=== PATIENT | male | born 1980 | race Two or more races ===

== ENCOUNTER → 2022-05-18 09:59 | Outpatient (BNVA) | payer OTHER, SELFPAY | PROVIDERS: PCP Family Medicine; Visit Provider Internal Medicine Endocrinology, Diabetes & Metabolism | DX: E11.9 Type 2 diabetes mellitus without complications (principal); Z79.4 Long term (current) use of insulin; Z79.84 Long term (current) use of oral hypoglycemic drugs | CPT/HCPCS: 82947; 83036; 99202 ==

== ENCOUNTER 2022-05-18 11:36 | Outpatient (REF) | payer OTHER, SELFPAY ==
[2022-05-18 14:14] LABS: Cholesterol 152 mg/dL; HDL Cholesterol 34 mg/dL; LDL Cholesterol Calculated 70 mg/dl; Triglycerides 243 mg/dL
[2022-05-18 14:21] LABS: Creatinine Urine 72.74 mg/dL
[2022-05-18 14:27] LABS: Microalbum/Creatinine Ratio Ur 1026.9 ug/mg cr
== END 2022-05-18 11:37 | disposition home or self-care (01) ==
LOC: HO.10HDL 11:36
PROVIDERS: Visit Provider Internal Medicine Endocrinology, Diabetes & Metabolism
DX: E11.9 Type 2 diabetes mellitus without complications (principal)
CPT/HCPCS: 36415; 80061; 82043

== ENCOUNTER → 2022-06-28 14:00 | Outpatient (BNVA) | payer OTHER, SELFPAY | PROVIDERS: PCP Family Medicine; Visit Provider Dietitian, Registered | DX: E11.9 Type 2 diabetes mellitus without complications (principal) | CPT/HCPCS: 97802 ==

== ENCOUNTER → 2022-07-27 14:36 | Outpatient (BNVA) | payer OTHER, SELFPAY | PROVIDERS: PCP Family Medicine; Visit Provider Internal Medicine Endocrinology, Diabetes & Metabolism | DX: E11.9 Type 2 diabetes mellitus without complications (principal); Z79.84 Long term (current) use of oral hypoglycemic drugs | CPT/HCPCS: 82947; 99212 ==

== ENCOUNTER → 2022-08-29 14:57 | Outpatient (BNVA) | payer OTHER, SELFPAY | PROVIDERS: PCP Family Medicine; Visit Provider Registered Nurse Diabetes Educator | DX: E11.9 Type 2 diabetes mellitus without complications (principal) | CPT/HCPCS: 99211 ==

== ENCOUNTER 2022-11-09 08:52 | Outpatient (REF) | payer OTHER, SELFPAY ==
[2022-11-09 14:48] LABS: MANUAL DIFF FLAG NO
[2022-11-09 14:57] LABS: Basophils Absolute Auto 0.1 X10*3/uL (0.0-0.2); Basophils Percent Auto 0.5 % (0-2); Eosinophils Absolute Auto 0.2 X10*3/uL (0.0-0.4); Eosinophils Percent Auto 2.3 % (0-4); Hematocrit 43.5 % (42.0-52.0); Imm Gran Abs Auto 0.04 X10*3/uL (0.00-0.03); Imm Gran Pct Auto 0.4 % (0.0-0.4); Lymphocytes Absolute Auto 2.7 X10*3/uL (1.2-4.9); Lymphocytes Percent Auto 28.7 % (20-40); Mean Corpuscular HGB Conc 32.2 g/dl (31.0-36.0); Mean Corpuscular Hemoglobin 26.8 pg (27.0-33.0); Mean Corpuscular Volume 83.3 fL (80.0-98.0); Mean Platelet Volume 9.4 fL (9.4-12.4); Monocytes Absolute Auto 0.8 X10*3/uL (0.1-1.2); Monocytes Percent Auto 8.6 % (2-11); Neutrophils Absolute Auto 5.5 x10*3/uL (2.0-8.3); Neutrophils Percent Auto 59.5 % (45-73); Platelet Count 315 X10*3/uL (160-400); Red Blood Count 5.22 X10*6/uL (4.60-5.80); Red Cell Distribution Width 15.3 % (11.0-16.0); White Blood Count 9.3 X10*3/uL (4.8-10.8)
[2022-11-09 15:15] LABS: Alanine Aminotransferase 27 U/L (0-40); Albumin Level 3.9 g/dL (3.5-5.0); Alkaline Phosphatase 78 U/L (39-117); Anion Gap 13 (12-20); Aspartate Amino Transferase 30 U/L (5-37); Bilirubin Total 0.4 mg/dL (0.0-1.0); Blood Urea Nitrogen 26 mg/dL (9-16); Calcium 10.1 mg/dL (8.4-10.2); Carbon Dioxide 25 mmol/L (22-29); Chloride 106 mmol/L (96-108); Cholesterol 137 mg/dL (<200); Estimated Glomerular Filt Rate 58; Glucose Fasting 109 mg/dL (60-99); HDL Cholesterol 32 mg/dL (>40); LDL Cholesterol Calculated 77 mg/dL (<100); Potassium 4.5 mmol/L (3.3-5.1); Sodium 139 mmol/L (135-145); Total Protein 7.5 g/dL (6.5-8.0); Triglycerides 140 mg/dL (<150)
[2022-11-09 15:32] LABS: Insulin 28 uU/mL (2-29)
[2022-11-09 15:37] LABS: Erythrocyte Sedimentation Rate 34 MM/HR (0-15)
[2022-11-09 15:38] LABS: Creatinine Urine 97.12 mg/dL
[2022-11-09 16:16] LABS: Microalbum/Creatinine Ratio Ur 926.6 ug/mg cr (<30)
[2022-11-10 09:17] LABS: ~HepC Num1 0.08 S/CO (0.00-0.79); ~Hepatitis C Antibody Nonreactive (Nonreactive)
== END 2022-11-09 08:53 | disposition home or self-care (01) ==
LOC: HO.CHCLDS 08:52
PROVIDERS: Absent Provider Pediatrics; Visit Provider Family Medicine
DX: E11.65 Type 2 diabetes mellitus with hyperglycemia (principal); R42 Dizziness and giddiness
CPT/HCPCS: 36415; 80053; 80061; 82043; 82570; 83525; 85025; 85652; 86803

== ENCOUNTER 2022-11-30 08:30 | Outpatient (AMB) | payer OTHER, SELFPAY ==
--- NOTE | 2022-11-30 08:31 | A.OFFVIS_ITS ---
Intake Vital Signs 11/30/22 08:32 Weight 318 lb 5.56 oz BP 110/60 Blood Pressure Location Lt brachial Position Sitting Pulse 99 Pulse Source Pulse Oximeter Intake Visit Reasons: F/Up Type 2 DM/Confirmed Intake Note: Patient present today to follow up on Type 2 Diabetes Mellitus. 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 Accompanied by: Self / Same As Patient Allergies No Known Allergies Allergy (Verified 11/30/22 08:38) Medication List - Last Reconciled 11/30/22 by Ady Najera MD allopurinol 300 mg PO BEDTIME amlodipine 10 mg PO DAILY blood-glucose meter (SpareFootStyle [place] Lite kit) As directed blood-glucose sensor (SpareFootStyle Jeannette 3 Sensor device) As directed change every 14 days cholecalciferol (vitamin D3) 50 mcg PO DAILY cyanocobalamin (vitamin B-12) 3,000 mcg PO DAILY dapagliflozin propanediol (Farxiga) 10 mg PO QAM lancets (TRUEplus Lancets) As directed metformin ER 500 mg PO BID nebivolol (Bystolic) 10 mg PO DAILY thiamine HCl (vitamin B1) 500 mg PO DAILY tirzepatide (Mounjaro) 7.5 mg (0.5 mL) subcut QWEEK valsartan 320 mg PO DAILY HPI HPI Comments History of Present Illness Details 42 YO F who is seen in consultation for T2DM at the request of PCP. Initially diagnosed with T2DM in age 34 . Not seen endo before Was initially started on treatment with metformin . Current regimen metformin XR 2000 mg BID Mounjaro 7.5 mg Qwkly Farxiga 10 mg QD Jeannette download shows using the sensor 85% of the time. Average glucose 145 with G mi of 6.8% the and variability 14.7%. 94% range with 6% hyperglycemia no hypoglycemia Family history of T2DM in father , sister . Has eyes checked yearly, last eye exam 6 mos ago , denies retinopathy. Denies neuropathy not sees podiatry. Denies nephropathy, on PAYAL/ARB. Not Has HLD,Not on statin.]. Denies CAD. Not Had diabetes education. [facility] Medical History (Updated 05/18/22 @ 10:15 by Ady Najera MD) Type 2 diabetes mellitus Surgical History No pertinent past surgical history Family History Mother High blood pressure Father Diabetes Kidney problem High blood pressure Social History Alcohol intake: never Patient Tobacco Use Status: Never used Tobacco Physical Exam Vital Signs: Last Vital Signs Pulse 99 11/30/22 08:32 BP 110/60 11/30/22 08:32 Absence of Cushingoid features. Absence of acromegalic features. Neck exam reveals nl size thyroid about 15 gms. No thyroid nodules palpable. No carotid bruits present. Lungs CTA. Heart S1 S2, Reg R/R. No M/R/ G. Skin exam reveals absence of vitiligo or acanthosis nigricans. Abdominal exam reveals Soft NT/ND with NA BS. No organomegaly present. Neck Other: . Extrem Other: Visual exam of foot performed. No ulcerations or open lesions. No onchomycosis, no callouses.Pulses 2 + distally Sensation intact to monofilament exam. Vibratory sensation sensed is intact with 128 Hz tuning fork Results Reviewed Results Reviewed: 11/30/22 08:41 Glucose, Whole Blood Routine Laboratory Last Values Glucose (Clinic) 136 mg/dL (60-115) H 11/30/22 08:41 Assessment & Plan Assessment & Plan (1) Type 2 diabetes mellitus: Code(s): E11.9 - Type 2 diabetes mellitus without complications Plan: This is a 42-year-old male with a history of type 2 diabetes being treated metformin, Mounjaro and Farxiga with excellent improved glycemic control and no known microvascular or macrovascular complications The plan is to continue the current therapy. At this point, patient can follow up with his primary care provider and return back to endocrinology should his HbA1c deteriorate Coding Level of Care Code Est Pt Level 3 (35409) Diagnoses Type 2 diabetes mellitus E11.9
[2022-11-30 08:32] VITALS: BP 110/60; PULSE 99
[2022-11-30 08:45] LABS: Glucose, Whole Blood 136 mg/dL (60-115)
== END 2022-11-30 09:03 | disposition home or self-care (01) ==
PROVIDERS: PCP Family Medicine; Visit Provider Internal Medicine Endocrinology, Diabetes & Metabolism
DX: E11.9 Type 2 diabetes mellitus without complications (principal)
CPT/HCPCS: 99213

== ENCOUNTER → 2022-11-30 08:30 | Outpatient (BNVA) | payer OTHER, SELFPAY | PROVIDERS: Visit Provider Internal Medicine Endocrinology, Diabetes & Metabolism | DX: E11.9 Type 2 diabetes mellitus without complications (principal) | CPT/HCPCS: 82947; 99212 ==

== ENCOUNTER → 2022-12-03 08:52 | Outpatient (BNV) | payer OTHER, SELFPAY | PROVIDERS: PCP Family Medicine; Visit Provider Internal Medicine Endocrinology, Diabetes & Metabolism | DX: E11.9 Type 2 diabetes mellitus without complications (principal) | CPT/HCPCS: 83036 ==

== ENCOUNTER 2023-06-24 08:53 | Outpatient (REF) | payer OTHER, SELFPAY ==
[2023-06-28 19:34] LABS: Testosterone, Free 50.4 pg/mL (35.0-155.0); Testosterone, Total 321 ng/dL (250-1100)
== END 2023-06-24 08:54 | disposition home or self-care (01) ==
LOC: HO.CHCLDS 08:53
PROVIDERS: Visit Provider Family Medicine
DX: E29.1 Testicular hypofunction (principal)
CPT/HCPCS: 36415; 84402; 84403

== ENCOUNTER 2023-08-06 14:38 | Outpatient (AMB) | payer OTHER, SELFPAY ==
--- NOTE | 2023-08-06 15:37 | MHC.OFFVIS ---
Intake Visit Reasons: second opinion on vericocele and balanitis Intake Note: New patient is present for second opinion on veriocele and Balanitis Allergies No Known Allergies Allergy (Verified 08/06/23 15:37) Medication List - Last Reconciled 08/08/23 by Filemon Dennis MD allopurinol 300 mg PO BEDTIME amlodipine 10 mg PO DAILY blood-glucose meter (FreeStyle [place] Lite kit) As directed blood-glucose sensor (FreeStyle Jeannette 3 Sensor device) As directed change every 14 days cholecalciferol (vitamin D3) 50 mcg PO DAILY clomiphene citrate 50 mg PO DAILY 90 days cyanocobalamin (vitamin B-12) 3,000 mcg PO DAILY dapagliflozin propanediol (Farxiga) 10 mg PO QAM lancets (TRUEplus Lancets) As directed metformin ER 500 mg PO BID nebivolol (Bystolic) 10 mg PO DAILY thiamine HCl (vitamin B1) 500 mg PO DAILY tirzepatide (Mounjaro) 7.5 mg (0.5 mL) subcut QWEEK valsartan 320 mg PO DAILY HPI Comments Details: Edd is a pleasant male. He is a patient of . He has seen for the following urologic conditions - question of left hydrocele - borderline testosterone in setting of diabetes Reassurance provided based on exam Six-month follow-up scrotal and ultrasound repeat labs Left hydrocele Per patient ultrasound performed Question varicocele on left side Has palpable varicocele with reduced testicular size Borderline testosterone Symptoms of low libido Decreased sex drive, decreased spontaneous erections, feeling of lack of energy Laboratory - 06/25 T 321 FT 50 Repeat lab work May benefit from testicular stimulation [facility] Medical History Type 2 diabetes mellitus Surgical History No pertinent past surgical history Family History Mother High blood pressure Father Diabetes Kidney problem High blood pressure Social History Alcohol intake: never Patient Tobacco Use Status: Never used Tobacco Review of Systems Const Denies chills and Denies fever(s) Card Reports no additional complaints and Denies syncope Resp Denies cough GI Denies abdominal pain and Denies heartburn Reports as per HPI and Denies change in libido Neuro Denies syncope Psych Denies change in libido Endo Denies change in libido Physical Exam Const General: cooperative, healthy appearing, comfortable and no acute distress Orientation/consciousness: patient oriented x3 HEENT Face and sinus: Yes normal facial exam Mouth: moist mucous membranes Neck Neck: Yes normal visual inspection, Yes full ROM and Yes trachea midline Chest Chest palpation & inspection: normal inspection of the chest Resp Effort & Inspection: normal respiratory effort, able to speak in complete sentences and no respiratory distress GI Inspection: Yes normal to inspection Back/Spine/Pelvis Cervical Spine: normal cervical lordosis Thoracic/Lumbar Spine: thoracic and lumbar spine normal to inspection Skin General skin exam: no rashes or lesions noted Neuro General: patient oriented x3, gait normal, tone normal and moves all extremities Extrem General: Yes normal to inspection and Yes capillary refill normal Assessment & Plan Assessment & Plan (1) Low libido: Code(s): R68.82 - Decreased libido Category: Medical (2) Varicocele: Code(s): 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 Category: Medical Plan Six-month follow-up renal ultrasound. Labs now Trial clomiphene Orders: Orders US scrotum 08/06/23 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, N43.3 - Hydrocele, unspecified Testosterone, Total 08/06/23 C61 - Malignant neoplasm of prostate, R68.82 - Decreased libido Testosterone, Total 6 Months R68.82 - Decreased libido Estradiol Ultra Sensitive 08/06/23 E29.1 - Testicular hypofunction, R68.82 - Decreased libido Lutenizing Hormone 08/06/23 E11.69 - Type 2 diabetes mellitus with other specified complication, N52.1 - Erectile dysfunction due to diseases classified elsewhere, R68.82 - Decreased libido Albumin Level 08/06/23 E29.1 - Testicular hypofunction, R68.82 - Decreased libido Sex Hormone Binding Globulin 08/06/23 R68.82 - Decreased libido Testosterone, Total 08/06/23 R68.82 - Decreased libido Medications: New clomiphene citrate Take Saturday/Sat/Sat 50 mg PO DAILY 90 days 90 tabs 0RF E29.1 - Testicular hypofunction, R68.82 - Decreased libido Patient Instructions: Imaging studies, laboratory and physical exam results were discussed and reviewed in detail. No major barriers to patient understanding were identified. An opportunity to ask questions regarding the treatment plan was provided. All questions were answered. The patient expressed understanding and agreement with the above treatment plan. The patient is aware they should contact our office by phone for worsening of their current condition or the appearance of new urologic symptoms. Compliance is encouraged with any medications and followup testing that is ordered. It is a privilege to participate in the urologic care of your patient. If you have any questions or concerns regarding treatment for the above conditions, or other urologic issues, please do not hesitate to contact me. The office telephone contact is [phone]. This note is constructed using voice recognition software. While every effort has been made to ensure accuracy theatrical dresser errors may have been included. Yours sincerely, Dr Filemon Dennis MD, [facility] - Urology Providers of Expert, Compassionate Care for the Genitourinary System Coding Level of Care Code New Pt Level 4 (29653) Diagnoses Low libido R68.82 Varicocele I86.1
== END 2023-08-06 16:16 | disposition home or self-care (01) ==
PROVIDERS: PCP Family Medicine; Visit Provider Urology
DX: R68.82 Decreased libido (principal); I86.1 Scrotal varices
CPT/HCPCS: 99204

== ENCOUNTER 2023-08-06 14:38 | Outpatient (REF) | payer OTHER, SELFPAY ==
[2023-08-06 17:10] LABS: Albumin Level 3.8 g/dL (3.5-5.0)
[2023-08-07 18:13] LABS: Lutenizing Hormone 6.8 mIU/mL (1.5-9.3); Sex Hormone Binding Globulin 36 nmol/L (10-50)
[2023-08-10 18:13] LABS: Testosterone, Total 380 ng/dL (250-1100)
[2023-08-12 06:48] LABS: Estradiol Ultra Sensitive 48 pg/mL (< OR = 29)
== END 2023-08-06 14:39 | disposition home or self-care (01) ==
LOC: HO.LAB 14:38
PROVIDERS: PCP Family Medicine; Visit Provider Urology
DX: C61 Malignant neoplasm of prostate (principal); E11.69 Type 2 diabetes mellitus with other specified complication; E29.1 Testicular hypofunction; R68.82 Decreased libido; N52.1 Erectile dysfunction due to diseases classified elsewhere
CPT/HCPCS: 36415; 82040; 82670; 83002; 84270; 84403; 99202

== ENCOUNTER 2023-09-13 16:04 | Outpatient (REF) | payer OTHER, SELFPAY ==
--- NOTE | ~2023-09-13 | US_ITS ---
EXAMINATION: US SCROTUM CLINICAL INFORMATION: Hydrocele, unspecified. COMPARISON: None available. TECHNIQUE: A sonogram of the scrotum was performed assessing mcconnell-scale appearance and color Doppler flow. Spectral Doppler analysis of the arterial and venous flow were performed in the testes bilaterally. FINDINGS: RIGHT: Right testicle measures 4.1 x 2.5 x 3.5 cm, volume 18.9 mL. No focal testicular parenchymal lesions are visualized. Spectral Doppler analysis of the arterial and venous flow is normal in the right testis. Right epididymal head is normal in size. No right hydrocele or varicocele is seen. Right epididymal Doppler flow is normal. LEFT: Left testicle measures 3.5 x 2.0 x 2.7 cm, volume 10.1 mL. No focal testicular parenchymal lesions are visualized. Spectral Doppler analysis of the arterial and venous flow is decreased in the left testis. Left epididymal head is normal in size. No left hydrocele is seen. Borderline left varicocele. Left epididymal Doppler flow is slightly increased with Valsalva. US/US scrotum IMPRESSION: 1. Borderline left varicocele. 2. Left testicle smaller than the right. 3. Left epididymal Doppler flow is slightly increased with Valsalva.
== END 2023-09-13 16:05 | disposition home or self-care (01) ==
LOC: HO.US 16:04
PROVIDERS: PCP Family Medicine; Visit Provider Urology
DX: N43.3 Hydrocele, unspecified (principal); I86.1 Scrotal varices
CPT/HCPCS: 76870

== ENCOUNTER 2023-10-07 08:48 | Outpatient (AMB) | payer OTHER, SELFPAY ==
--- NOTE | 2023-10-07 09:08 | A.OFFVIS_ITS ---
Vital Signs 10/07/23 09:13 Height 6 ft Weight 315 lb 4.176 oz BMI 42.8 BP 120/80 Blood Pressure Location Rt brachial Position Sitting Pulse 99 Pulse Source Pulse Oximeter Intake Visit Reasons: Type 2 DM/LVM Intake Note: Patient presents today to re-establish treatment for D2MT office visit. 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 He last saw Dr. Najera in November 2022. Endo: DM: He was dx with t2dm 10 years ago. He states that he did have diabetic Education and understands that he should be doing with his diet. His last A1c was 6.6. He is currently on Farxiga 10 mg, metformin 1000 mg twice a day and Mounjaro 7.5 mg weekly. glucose today is 131 in the office. CGM-freestyle 3 download shows 1% hyperglycemia 99% in range. No hypoglycemic events. He states almost everyone on his father's side has t2dm with kidney problems. CV: Blood pressure today in the office is 120/80. Patient is currently on valsartan 320 mg, amlodipine 10 mg and Bystolic 10 mg daily. Cholesterol is diet controlled. [facility] Medical History (Updated 10/07/23 @ 09:38 by Park Perkins PA-C) HTN (hypertension) Type 2 diabetes mellitus Surgical History No pertinent past surgical history Family History Mother High blood pressure Father Diabetes Kidney problem High blood pressure Social History Alcohol intake: never Patient Tobacco Use Status: Never used Tobacco Physical Exam Vital Signs: Last Vital Signs Pulse 99 10/07/23 09:13 BP 120/80 10/07/23 09:13 BMI result Body Mass Index 42.8 Const Orientation/consciousness: patient oriented x3 Neck Neck: Yes no lymphadenopathy Thyroid: Thyroid normal Carotids: no bruits Resp Auscultation: clear to auscultation bilaterally Cardio Rate: regular rate Rhythm: regular rhythm Heart sounds: S1 normal heart sound present and S2 normal heart sound present Peripheral pulses: dorsalis pedis present Neuro General: patient oriented x3, gait normal and no focal motor deficits Extrem Other: Monofilament sensation intact bilaterally. Vibratory sensation intact bilaterally. Skin intact. General: Yes normal to inspection Results Reviewed Results Reviewed: Laboratory Tests 12/03/22 08:52 Hgb A1c (Clinic) 6.9 H Assessment & Plan Assessment & Plan (1) Type 2 diabetes mellitus: Code(s): E11.9 - Type 2 diabetes mellitus without complications Category: Medical Qualifiers: Diabetes mellitus complication status: with kidney complications Diabetes mellitus fdc insulin use: without lead worker of housekeeping and laundry use Diabetes mellitus complication detail: with diabetic microalbuminuria Qualified Code(s): E11.29 - Type 2 diabetes mellitus with other diabetic kidney complication; R80.9 - Proteinuria, unspecified Plan: referral to eye and lasik for eye exam Continue current regimen. Discussed diet changes. He is switching jobs is suspected to be easier to maintain a better diet. He will follow-up in 3 months. Advised to do labs prior to appointment. Patient understands and agrees with this plan. (2) Microalbuminuria due to type 2 diabetes mellitus: Code(s): E11.29 - Type 2 diabetes mellitus with other diabetic kidney complication; R80.9 - Proteinuria, unspecified Category: Medical Plan: Following with Dr. Coleman q 6 months (3) HTN (hypertension): Code(s): I10 - Essential (primary) hypertension Category: Medical Qualifiers: Hypertension type: primary hypertension Qualified Code(s): I10 - Essential (primary) hypertension Plan: WNL. Continue current regimen Orders: Orders Microalbumin, Random (w Creat) 3 Months E11.29 - Type 2 diabetes mellitus with other diabetic kidney complication, E11.69 - Type 2 diabetes mellitus with other specified complication, I10 - Essential (primary) hypertension, R80.9 - Proteinuria, unspecified Basic Metabolic Panel 3 Months E11.29 - Type 2 diabetes mellitus with other diabetic kidney complication, E11.69 - Type 2 diabetes mellitus with other specified complication, I10 - Essential (primary) hypertension, R80.9 - Proteinuria, unspecified Hemoglobin A1c 3 Months E11.29 - Type 2 diabetes mellitus with other diabetic kidney complication, E11. - Type 2 diabetes mellitus with other specified complication, I10 - Essential (primary) hypertension, R80.9 - Proteinuria, unspecified Lipid Panel 3 Months E11. - Type 2 diabetes mellitus with other diabetic kidney complication, E11.69 - Type 2 diabetes mellitus with other specified complication, I10 - Essential (primary) hypertension, R80.9 - Proteinuria, unspecified Referrals Ophthalmology Referral E11. - Type 2 diabetes mellitus with other diabetic kidney complication, E11. - Type 2 diabetes mellitus with other specified complication, R80.9 - Proteinuria, unspecified Coding Level of Care Code Est Pt Level 4 (06171) Complex EM visit Add On G2211 Diagnoses Type 2 diabetes mellitus with diabetic microalbuminuria, without long-term current use of insulin E11.; R80.9 Diabetes mellitus complication status: with kidney complications Diabetes mellitus fdc insulin use: without lead worker of housekeeping and laundry use Diabetes mellitus complication detail: with diabetic microalbuminuria Microalbuminuria due to type 2 diabetes mellitus E11.; R80.9 Primary hypertension I10 Hypertension type: primary hypertension
[2023-10-07 09:13] VITALS: BP 120/80; PULSE 99; BMI 42.8
[2023-10-07 09:25] LABS: Glucose, Whole Blood 131 mg/dL (60-115)
== END 2023-10-07 09:39 | disposition home or self-care (01) ==
PROVIDERS: PCP Family Medicine; Visit Provider Physician Assistant
DX: E11.29 Type 2 diabetes mellitus with other diabetic kidney complication (principal); R80.9 Proteinuria, unspecified; I10 Essential (primary) hypertension
CPT/HCPCS: 99214; G2211

== ENCOUNTER → 2023-10-07 08:48 | Outpatient (BNVA) | payer OTHER, SELFPAY | PROVIDERS: PCP Family Medicine; Visit Provider Physician Assistant | DX: E11.29 Type 2 diabetes mellitus with other diabetic kidney complication (principal); E11.69 Type 2 diabetes mellitus with other specified complication; R80.9 Proteinuria, unspecified; I10 Essential (primary) hypertension; Z79.84 Long term (current) use of oral hypoglycemic drugs | CPT/HCPCS: 82947; 83036; 99212 ==

== ENCOUNTER 2024-01-06 09:14 | Outpatient (AMB) | payer OTHER, SELFPAY ==
--- NOTE | 2024-01-06 09:16 | A.OFFVIS_ITS ---
Vital Signs 01/06/24 09:18 Height 6 ft Weight 322 lb 1.526 oz BMI 43.7 BP 128/62 Blood Pressure Location Rt brachial Position Sitting Pulse 93 Pulse Source Pulse Oximeter Intake Visit Reasons: T2DM/CONFIRMED Intake Note: Patient presents today for D2MT follow up visit. 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 Accompanied by: Self / Same As Patient Allergies No Known Allergies Allergy (Verified 01/06/24 09:23) Medication List - Last Reconciled 01/06/24 by Park Perkins PA-C allopurinol 300 mg PO BEDTIME amlodipine 10 mg PO DAILY blood-glucose meter (AccedoStyle [place] Lite kit) As directed blood-glucose sensor (FreeStyle Jeannette 3 Sensor device) As directed change every 14 days cholecalciferol (vitamin D3) 50 mcg PO DAILY clomiphene citrate 50 mg PO DAILY 90 days cyanocobalamin (vitamin B-12) 3,000 mcg PO DAILY lancets (TRUEplus Lancets) As directed metformin ER 500 mg PO BID methocarbamol 750 mg PO Q6H PRN thiamine HCl (vitamin B1) 500 mg PO DAILY tirzepatide (Mounjaro) 10 mg (0.5 mL) subcut QWEEK valsartan 320 mg PO DAILY HPI HPI T2DM/CONFIRMED: Details: Patient is a 43-year-old male who has a significant past medical history of type 2 diabetes, hypertension, low libido, gout who presents today for a diabetic follow-up. He last saw Dr. Najera in November 2022. Endo: DM: He was dx with t2dm around 2013. He states that he did have diabetic Education and understands that he should be doing with his diet. His last A1c was 6.6. His A1c today is 7.1. He is currently on metformin 1000 mg twice a day and Mounjaro 7.5 mg weekly. -Farxiga stopped due to frequent utis. This was discontinued last month by his PCP. CGM-needs new sensors, has not had this in a month He states almost everyone on his father's side has t2dm with kidney problems. He is frustrated today with his weight and states that he is motivated to lose it. He wants to lose about 100 lb overall. Nephro: Sees Dr. Coleman. He states the microalbuminuria is worsening. CV: Blood pressure today in the office is 128/62. Patient is currently on valsartan 320 mg, amlodipine 10 mg and Bystolic 10 mg daily. Cholesterol is diet controlled. [facility] Medical History (Updated 10/07/23 @ 09:38 by Park Perkins PA-C) HTN (hypertension) Type 2 diabetes mellitus Surgical History No pertinent past surgical history Family History Mother High blood pressure Father Diabetes Kidney problem High blood pressure Social History Alcohol intake: never Patient Tobacco Use Status: Never used Tobacco Physical Exam Const Orientation/consciousness: patient oriented x3 Neck Neck: Yes no lymphadenopathy Thyroid: Thyroid normal Carotids: no bruits Resp Auscultation: clear to auscultation bilaterally Cardio Rate: regular rate Rhythm: regular rhythm Heart sounds: S1 normal heart sound present and S2 normal heart sound present Peripheral pulses: dorsalis pedis present Neuro General: patient oriented x3, gait normal and no focal motor deficits Extrem Other: Monofilament sensation intact bilaterally. Vibratory sensation intact bilaterally. Skin intact. General: Yes normal to inspection Results Reviewed Results Reviewed: Laboratory Tests 11/09/22 10/07/23 09:05 09:40 Hgb A1c (Clinic) 6.6 H Urine Creatinine 97.12 Urine Microalbumin 900.0 Microalb/Creat Ratio 926.6 H Assessment & Plan Assessment & Plan (1) Microalbuminuria due to type 2 diabetes mellitus: Code(s): E11.29 - Type 2 diabetes mellitus with other diabetic kidney complication; R80.9 - Proteinuria, unspecified Category: Medical Plan: Following closely with Nephrology. Has a follow up today at 16:00. Motivated to lose weight with diet and exercise. Downloaded/paid for an jose luis on his phone to help manage his caloric intake. He is also walking for an hour every day. We will increase Mounjaro. (2) HTN (hypertension): Code(s): I10 - Essential (primary) hypertension Category: Medical Qualifiers: Hypertension type: primary hypertension Qualified Code(s): I10 - E ssential (primary) hypertension Plan: WNL. Continue current regimen. Plan Advised to follow up in 3 months. Sooner if needed. Orders: Orders AMB Hemoglobin A1c Today E11.29 - Type 2 diabetes mellitus with other diabetic kidney complication, R80.9 - Proteinuria, unspecified, Z13.9 - Encounter for screening, unspecified Medications: New tirzepatide (Mounjaro) 10 mg (0.5 mL) subcut QWEEK 2 mL 5RF Refilled blood-glucose sensor (AccedoStyle Jeannette 3 Sensor device) As directed change every 14 days 2 ea 11RF Discontinued tirzepatide (Mounjaro) Discontinued Reason: Doctor's Order 7.5 mg (0.5 mL) subcut QWEEK 2 mL 4RF E11.9 - Type 2 diabetes mellitus without complications Coding Level of Care Code Est Pt Level 4 (74695) Complex EM visit Add On G2211 Diagnoses Microalbuminuria due to type 2 diabetes mellitus E11.29; R80.9 Primary hypertension I10 Hypertension type: primary hypertension
[2024-01-06 09:18] VITALS: BP 128/62; PULSE 93; BMI 43.7
[2024-01-06 09:29] LABS: Glucose, Whole Blood 112 mg/dL (60-115)
== END 2024-01-06 09:50 | disposition home or self-care (01) ==
LOC: HO.ENCR 09:15
PROVIDERS: PCP Family Medicine; Visit Provider Physician Assistant
DX: Z13.9 Encounter for screening, unspecified (principal); E11.29 Type 2 diabetes mellitus with other diabetic kidney complication; R80.9 Proteinuria, unspecified; I10 Essential (primary) hypertension

== ENCOUNTER → 2024-01-06 09:14 | Outpatient (BNVA) | payer OTHER, SELFPAY | PROVIDERS: PCP Family Medicine; Visit Provider Physician Assistant | DX: E11.29 Type 2 diabetes mellitus with other diabetic kidney complication (principal); R80.9 Proteinuria, unspecified; I10 Essential (primary) hypertension | CPT/HCPCS: 82947; 83036; 99212 ==

== ENCOUNTER 2024-02-13 14:54 | Outpatient (REF) | payer OTHER, SELFPAY ==
[2024-02-13 16:24] LABS: Albumin Level 3.6 g/dL (3.5-5.0)
[2024-02-14 21:18] LABS: Lutenizing Hormone 12.1 mIU/mL (1.5-9.3); Sex Hormone Binding Globulin 57 nmol/L (10-50)
[2024-02-20 12:19] LABS: Testosterone, Total 734 ng/dL (250-1100)
[2024-02-22 07:58] LABS: Estradiol Ultra Sensitive 86 pg/mL (< OR = 29)
== END 2024-02-13 14:55 | disposition home or self-care (01) ==
LOC: HO.LAB 14:54
PROVIDERS: PCP Family Medicine; Visit Provider Urology
DX: I86.1 Scrotal varices (principal); R68.82 Decreased libido; E11.29 Type 2 diabetes mellitus with other diabetic kidney complication; R80.9 Proteinuria, unspecified
CPT/HCPCS: 36415; 76870; 82040; 82670; 83002; 84270; 84403

== ENCOUNTER → 2024-02-13 15:00 | Outpatient (BNV) | payer OTHER, SELFPAY | PROVIDERS: PCP Family Medicine; Visit Provider Radiology Diagnostic Radiology | DX: I86.1 Scrotal varices (principal) | CPT/HCPCS: 76870; 93976 ==

== ENCOUNTER 2024-03-24 15:22 | Outpatient (AMB) | payer OTHER, SELFPAY ==
--- NOTE | 2024-03-24 15:25 | A.OFFVIS_ITS ---
Intake Visit Reasons: 6M Scrotal US/Labs(set) Intake Note: Patient is present for 6M SCROTAL US/LABS Urology Medication:CLOMIPHENE,ALLOPURINOL,VITAMIN B12 Antibiotic Allergy:NONE Blood Thinner:NONE Director Industrial Relations Required: No Allergies No Known Allergies Allergy (Verified 04/30/24 07:45) HPI Comments Details: Edd is a pleasant male. He is a patient of . He has seen for the following urologic conditions - question of left hydrocele - borderline testosterone in setting of diabetes Good response to pituitary stimulation for testosterone Labs - 02/24 T 740 LH 12 Will reduce clomiphene to 25 mg daily Left hydrocele Per patient ultrasound performed Question varicocele on left side Has palpable varicocele with reduced testicular size Borderline testosterone Symptoms of low libido Decreased sex drive, decreased spontaneous erections, feeling of lack of energy Laboratory - 06/25 T 321 FT 50 Repeat lab work May benefit from testicular stimulation [facility] Medical History (Updated 04/17/24 @ 08:25 by Park Perkins PA-C) HTN (hypertension) Type 2 diabetes mellitus Surgical History No pertinent past surgical history Family History (Updated 04/30/24 @ 08:01 by WILLIAM Yeboah) Mother High blood pressure Father Diabetes Kidney problem High blood pressure Maternal Aunt Cancer Maternal Aunt Cancer Social History Alcohol intake: never Patient Tobacco Use Status: Never used Tobacco Review of Systems Const Denies chills and Denies fever(s) Card Reports no additional complaints and Denies syncope Resp Denies cough GI Denies abdominal pain and Denies heartburn Reports as per HPI and Denies change in libido Neuro Denies syncope Psych Denies change in libido Endo Denies change in libido Physical Exam Const General: cooperative, healthy appearing, comfortable and no acute distress Orientation/consciousness: patient oriented x3 HEENT Face and sinus: Yes normal facial exam Mouth: moist mucous membranes Neck Neck: Yes normal visual inspection, Yes full ROM and Yes trachea midline Chest Chest palpation & inspection: normal inspection of the chest Resp Effort & Inspection: normal respiratory effort, able to speak in complete sentences and no respiratory distress GI Inspection: Yes normal to inspection Back/Spine/Pelvis Cervical Spine: normal cervical lordosis Thoracic/Lumbar Spine: thoracic and lumbar spine normal to inspection Skin General skin exam: no rashes or lesions noted Neuro General: patient oriented x3, gait normal, tone normal and moves all extremities Extrem General: Yes normal to inspection and Yes capillary refill normal Assessment & Plan Assessment & Plan (1) Low libido: Code(s): R68.82 - Decreased libido Category: Medical (2) Hypogonadism in male: Code(s): E29.1 - Testicular hypofunction Category: Medical Plan Good response to SERM dosing Review in six-month Orders: Orders Lutenizing Hormone 6 Months E29.1 - Testicular hypofunction Testosterone, Total 6 Months E29.1 - Testicular hypofunction Medications: Refilled clomiphene citrate Take Saturday/Sat/Sat 50 mg PO DAILY 90 tabs 0RF 90 days R68.82 - Decreased libido, E29.1 - Testicular hypofunction Patient Instructions: This note is constructed using voice recognition software. While every effort has been made to ensure accuracy hot mill observer errors may have been included. Imaging studies, laboratory and physical exam results were discussed and reviewed in detail. No major barriers to patient understanding were identified. An opportunity to ask questions regarding the treatment plan was provided. All questions were answered. The patient expressed understanding and agreement with the above treatment plan. The patient is aware they should contact our office by phone for worsening of their current condition or the appearance of new urologic symptoms. Compliance is encouraged with any medications and followup testing that is ordered. It is a privilege to participate in the urologic care of your patient. If you have any questions or concerns regarding treatment for the above conditions, or other urologic issues, please do not hesitate to contact me. The office telephone contact is [phone]. Sincerely, Dr Filemon Dennis MD, [facility] - Urology Compassionate Specialist Care for the Genitourinary System Coding Level of Care Code Est Pt Level 3 (32481) Complex EM visit Add On G2211 Diagnoses Low libido R68.82 Hypogonadism in male E29.1
--- OUTSIDE RECORDS SUMMARY | 2024-03-24 17:20 | XMS_ITS | Clinical Summary ---
Author Organization [facility], Address [address] [place] [address] [place] [address] Phone Care Team Providers Care Import/Export Administrator Name Role Phone Martha Joyner MD Primary Care Provider [phone] Allergies Active Allergy Reactions Criticality Noted Date Comments Clonidine 07/07/2021 Medications glucose blood test strip 1 each by Other route if needed Use as instructed Active ketotifen (ZADITOR) 0.025 % ophthalmic solution 1 drop 2 (two) times a day Active metFORMIN (GLUCOPHAGE) 850 MG tablet Take 850 mg by mouth in the morning and 850 mg in the evening. Take with meals. Active Dulaglutide (Trulicity) 0.75 MG/0.5ML solution pen-injector Inject under the skin Active valsartan (DIOVAN) 320 MG tablet Take 320 mg by mouth 1 (one) time each day Active sertraline (Zoloft) 25 MG tablet Take 25 mg by mouth 1 (one) time each day Active Acetaminophen Extra Strength 500 MG tablet TAKE TWO TABLETS BY MOUTH EVERY 8 HOURS NEEDED FOR PAIN. NO MORE THAN SIX TABLETS IN 24 HOURS 3 Active amoxicillin-cl avulanate (AUGMENTIN) 875-125 MG per tablet TAKE ONE TABLET BY MOUTH TWICE DAILY UNTIL FINISHED 3 Active TechLite Pen Nemo 31G X 5 MM misc USE DAILY WITH INSULIN 3 Active metFORMIN XR (GLUCOPHAGE-XR ) 500 MG 24 hr tablet TAKE ONE TABLET BY MOUTH TWICE DAILY WITH MEALS DO NOT BREAK, CRUSH, DISSOLVE OR CHEW 3 Active Mounjaro 2.5 MG/0.5ML solution pen-injector INJECT 0.5 ML (2.5 MG) SUBCUTANEOUSLY ONCE A WEEK FOR 4 WEEKS. 3 Active carvedilol (COREG) 12.5 MG tablet TAKE ONE TABLET IN THE MORNING AND EVENING WITH FOOD 3 Active Continuous Blood Gluc Sensor (FreeStyle Jeannette 3 Sensor) [facility] [place]ED TO TEST BLOOD SUGAR CHANGE EVERY 14 DAYS 3 Active Proctozone-HC 2.5 % cream INSERT RECTALLY TWICE DAILY 3 Active meclizine (ANTIVERT) 25 MG tablet TAKE ONE TABLET THREE TIMES DAILY IN THE MORNING, AT NOON, AND AT BEDTIME NEEDED FOR DIZZINESS 3 Active Active Problems Problem Noted Date Diagnosed Date Diabetes mellitus without me ntion of complication, type II or unspecified type, uncontrolled 07/07/2021 Hypertension 07/07/2021 Resolved Problems Problem Noted Date Diagnosed Date Resolved Date Hypertension in chronic kidn ey disease stage 2 due to type 2 diabetes mellitus 07/07/20212021 Encounters Date Type Department Care Team Description 01/06/2024 4:15 PM EST Office Visit [facility] [address] [place] [address] Jose Guadalupe Coleman MD Stage 3a chronic kidney disease (HCC) (Primary Dx); Hypertension; Diabetes mellitus without mention of complication, type II or unspecified type, uncontrolled (HCC); Persistent proteinuria from Last 3 Months Social History Tobacco Use Types Packs/Day Years Used Date Smoking Tobacco: Never Smokeless Tobacco: Never Sex and Gender Information Value Date Recorded Sex Assigned at Not on file Legal Sex Male 11:06 AM EDT Gender Identity Not on file Sexual Orientation Not on file Last Filed Vital Signs Vital Sign Reading Time Taken Comments Blood Pressure 110/74 01/06/2024 4:54 PM EST Pulse - - Temperature - - Respiratory Rate - - Oxygen Saturation - - Inhaled Oxygen Concentration - - Weight 144 kg (317 lb) 01/06/2024 4:54 PM EST Height - - Body Mass Index - - Plan of Treatment Health Maintenance Due Date Last Done Comments Pneumococcal Vaccine: Pediat rics (0 to 5 Years) and At-Risk Patients (6 to 64 Years) (1 of 2 - PCV) 06/13/1985 Hepatitis B Vaccine (1 of 3 - 19+ 3-dose series) 06/13/1998 Diabetes: Ophthalmology Exam 07/07/2021 Diabetes: Pedal Pulse Checked 07/07/2021 Diabetes: Sensory Foot Exam 07/07/2021 Diabetes: Visual Foot Exam 07/07/2021 Influenza Vaccine (#1) 2023 Diabetes: Hemoglobin A1C 11/05/2023 024, 10/01/2022, 05/14/2022 Procedures Procedure Name Priority Date/Time Associated Diagnosis Comments PROTEIN / CREATININE RATIO, URINE Routine 12/30/2023 1:38 PM EDT RENAL FUNCTION PANEL Routine 12/30/2023 1:38 PM EDT CBC AND DIFFERENTIAL Routine 12/30/2023 1:38 PM EDT PROTEIN / CREATININE RATIO, URINE Routine 12/30/2023 1:38 PM EDT URINALYSIS WITH MICROSCOPIC Routine 12/30/2023 1:38 PM EDT MICROSCOPIC EXAMINATION - DO NOT USE Routine 12/30/2023 1:38 PM EDT from Last 3 Months Results * Microscopic Examination (12/30/2023 1:38 PM EDT) WBC, Urine None seen 0 - 5 /hpf [facility] RBC, Urine None seen 0 - 2 /hpf [facility] Squamous Epithelial, Urine None seen 0 - 10 /hpf [facility] Casts None seen None seen /lpf [facility] Bacteria, Urine None seen None seen/Few [facility] 12/30/2023 1:38 PM EDT 12/30/2023 us Jose Guadalupe Coleman MD LAB MICROBIOLOGY - GENERAL ORDERABLES Final Result [facility] [address] [place] [address] * Protein, Total, Random Urine w/Creatinine (Protein/Creat Ratio) (12/30/2023 1:38 PM EDT) Only the most recent of2 resultswithin the time period is included. Creatinine, Ur 60.4 Not Estab. mg/dL [facility] Protein, Ur CANCELED [facility] Comment: Test not performed Result canceled by the ancillary. 12/30/2023 1:38 PM EDT 12/30/2023 Jose Guadalupe Coleman MD LAB URINE ORDERABLES Edite d Result - Final [facility] [address] [place] [address] * (ABNORMAL) Urinalysis with microscopic (12/30/2023 1:38 PM EDT) Specific Jerome, Urine 1.016 1.005 - 1.030 [facility] pH Urine 6.5 5.0 - 7.5 [facility] Color, Urine Yellow Yellow [facility] Appearance Urine Clear Clear [facility] WBC Esterase Urine Negative Negative [facility] Protein, Ur 3+(A) Negative/Tra ce [facility] [phone] Glucose, Ur Negative Negative [facility] [phone] Ketones, Urine Negative Negative [facility] Blood Urine Trace(A) Negative [facility] Bilirubin Urine Negative Negative [facility] Urobilinogen Urine 0.2 0.2 - 1.0 mg/dL [facility] Nitrite, Urine Negative Negative [facility] Microscopic Examination See below: [facility] Comment:Microscopic was gloria cated and was performed. 12/30/2023 1:38 PM EDT 12/30/2023 Jose Guadalupe Coleman MD LAB URINE ORDERABLES Final Result [facility] [address] [place] [address] * (ABNORMAL) CBC and Differential (12/30/2023 1:38 PM EDT) WBC 9.1 3.4 - 10.8 x10E3/uL [facility] RBC 6.06(H) 4.14 - 5.80 x10E6/uL [facility] Hemoglobin 17.4 13.0 - 17.7 g/dL [facility] Hematocrit 52.7(H) 37.5 - 51.0 % [facility] MCV 87 79 - 97 fL [facility] MCH 28.7 26.6 - 33.0 pg [facility] MCHC 33.0 31.5 - 35.7 g/dL [facility] RDW 14.4 11.6 - 15.4 % [facility] Platelets 304 150 - 450 x10E3/uL [facility] Neutrophils Relative 61 Not Estab. % [facility] Lymphocytes Relative 29 Not Estab. % [facility] Monocytes 8 Not Estab. % [facility] Eosinophils Relative 1 Not Estab. % [facility] Basophils Relative 1 Not Estab. % [facility] Neutrophils Absolute 5.4 1.4 - 7.0 x10E3/uL [facility] Lymphocytes Absolute 2.7 0.7 - 3.1 x10E3/uL [facility] Monocytes Absolute 0.8 0.1 - 0.9 x10E3/uL [facility] Eosinophils Absolute 0.1 0.0 - 0.4 x10E3/uL [facility] Basophils Absolute 0.1 0.0 - 0.2 x10E3/uL [facility] Immature Granulocytes 0 Not Estab. % [facility] Immature Grans (Absolute) 0.0 0.0 - 0.1 x10E3/uL [facility] 12/30/2023 1:38 PM EDT 12/30/2023 us Jose Guadalupe Coleman MD LAB BLOOD ORDERABLES Final Result [facility] [address] [place] [address] * (ABNORMAL) Renal Function Panel (12/30/2023 1:38 PM EDT) Glucose 100(H) 70 - 99 mg/dL [facility] BUN 24 6 - 24 mg/dL [facility] Creatinine 1.46(H) 0.76 - 1.27 mg/dL [facility] eGFR CKD-EPI CR 2020 60 >59 mL/min/1.7 3 [facility] BUN/Creatinine Ratio 16 9 - 20 [facility] Sodium 140 134 - 144 mmol/L [facility] Potassium 4.8 3.5 - 5.2 mmol/L [facility] Chloride 100 96 - 106 mmol/L [facility] Bicarbonate (CO2) 24 20 - 29 mmol/L [facility] Calcium 9.4 8.7 - 10.2 mg/dL [facility] Albumin 3.6(L) 4.1 - 5.1 g/dL [facility] Phosphorus 3.3 2.8 - 4.1 mg/dL [facility] 12/30/2023 1:38 PM EDT 12/30/2023 us Jose Guadalupe Coleman MD LAB BLOOD ORDERABLES Final Result [facility] [address] [place] [address] from Last 3 Months Insurance [facility] ([id number]) Care Teams Import/Export Administrator Relationship Specialty Start Date End Date Martha Joyner MD PCP - General Family Medicine 06/29/21
--- OUTSIDE RECORDS SUMMARY | 2024-03-24 17:20 | XMS_ITS | Encounter Summary ---
Author Organization [facility] Address [address] [place] [address] Phone Care Team Providers Care Amplifier Mechanic Name Role Phone Martha Joyner MD Primary Care Provider [phone] Encounter Details Date Type Department Care Team (Late st Contact Info) Description 06/29/2021 Documentation Only [facility], [address] [place] [address] Martha Joyner MD [address] [place] [address] Social History Tobacco Use Types Packs/Day Years Used Date Smoking Tobacco: Never Assessed Sex and Gender Information Value Date Recorded Sex Assigned at Not on file Legal Sex Male 11:06 AM EDT Gender Identity Not on file Sexual Orientation Not on file documented as of this encounter Plan of Treatment Not on file documented as of this encounter Visit Diagnoses Not on filedocumented in this encounter Care Teams Amplifier Mechanic Relationship Specialty Start Date End Date Martha Joyner MD PCP - General Family Medicine 06/29/21 documented as of this encounter
--- OUTSIDE RECORDS SUMMARY | 2024-03-24 17:20 | XMS_ITS | Encounter Summary ---
Author Organization [facility] Address [address] [place] [address] Phone Care Team Providers Care Resaw Feeder Name Role Phone Martha Joyner MD Primary Care Provider [phone] Encounter Details Date Type Department Care Team (Late st Contact Info) Description 06/29/2021 Documentation Only [facility], [address] [place] [address] Martha Joyner MD [address] [place] [address] Social History Tobacco Use Types Packs/Day Years [...] on filedocumented in this encounter Care Teams Resaw Feeder Relationship Specialty Start Date End Date Martha Joyner MD PCP - General Family Medicine 06/29/21 documented as of this encounter
--- OUTSIDE RECORDS SUMMARY | 2024-03-24 17:20 | XMS_ITS | Encounter Summary ---
Author Organization [employer] Address [address] [place] [address] Care Team Providers Care Slice Plug Cutter Operator Name Role Phone Martha Joyner MD Primary Care Provider [phone] Encounter Details Date Type Department Care Team (Late st Contact Info) Description 03/13/2023 Telephone [facility] [address] [place] [address] Martha Joyner MD [address] [place], [place] [phone] Social History Tobacco Use Types Packs/Day Years Used Date Smoking Tobacco: Never Passive Smoke Exposure: Never Smokeless Tobacco: Never Alcohol Use Standard Drinks/Week Comments Never 0 (1 standard drink = 0.6 oz pur e alcohol) Depression Answer Date Recorded Patient Health Questionnaire-9 Score 1 02/14/2022 Housing Stability Answer Date Recorded What is your housing situation today? I have volodymyrbtety calderon 12/24/[address] you li ve. Do you have problems with any of the following? None of the above 12/24/2022 Food Insecurity Answer Date Recorded Within the past 12 months, y ou worried that your food would run out before you got money to buy more: Never True 12/24/2022 Within the past 12 months,th e food you bought just didn't last and you didn't have enough money to get more: Never True Transportation Answer Date Recorded In the past 12 months, has l ack of transportation kept you from medical appts, meetings, work or from getting things needed for daily living? No 12/24/2022 Utilities Answer Date Recorded In the past 12 months, has t he electric, gas, oil or water company threatened to shut off services in your home? No 12/24/2022 Depression Answer Date Recorded Patient Health Questionnaire-2 Score 0 02/14/2022 Sex and Gender Information Value Date Recorded Sex Assigned at Male 01/01/2022 10:39 AM EDT Legal Sex Male 10:39 AM EDT Gender Identity Male 01/01/2022 10:39 AM EDT Sexual Orientation Straight 01/01/2022 10 :39 AM EDT documented as of this encounter Miscellaneous Notes * Telephone Encounter - Heidi Hernandez LPN - 03/13/2023 1:10 PM EST Critical Result line call received at this time. Nydia with [facility] reporting for Dr.Gregg Laguerre US Scrotum Left testicle smaller than right although echogenicity of left testicle mildly heterogenous. No solid or cystic mass . Subjective: Flow to left testicle diminished compared to right. Findings do not suggest torsion currently. Diagnostic consideration would be chronic intermittent tortion in proper clinical setting. Please update PCP and ordering MD . Follow with patient as indicated. Report faxed at this time to [phone] documented in this encounter Plan of Treatment Upcoming Encounters Date Type Department Care Team (Late st Contact Info) Description 03/27/2024 8:00 AM EST Office Visit [facility] [address] [place] [address] Roxi Reagan, DMD [address] [place] [address] documented as of this encounter Visit Diagnoses Not on filedocumented in this encounter Additional Health Concerns Assessment Noted Time PHQ-9 Depression Total Score: 1 02/15/20 22 4:00 PM EST documented as of this encounter Care Teams Slice Plug Cutter Operator Relationship Specialty Start Date End Date Martha Joyner MD [address] [place] [address] PCP - General Family Medicine 02/22/21 Endo [facility] [place] Nurse Practitioner Endocrinology 01/08/24 documented as of this encounter
--- OUTSIDE RECORDS SUMMARY | 2024-03-24 17:20 | XMS_ITS | Encounter Summary ---
Author Organization [employer] Address [address] [facility] [address] [place] [address] Care Team Providers Care Wood Die Maker Name Role Phone Martha Joyner MD Primary Care Provider [phone] Reason for Visit * Reason Comments Med Refill Encounter Details Date Type Department Care Team ([facility] Contact Info) Description 01/03/2023 Refill [facility]S [address] [place], [place] [phone] Tereza Wagner MD [address] [place] [address] Social History Tobacco Use Types Packs/Day Years Used Date Smoking Tobacco: Never Passive Smoke Exposure: Never Smokeless Tobacco: Never Alcohol Use Standard Drinks/Week Comments Never 0 (1 standard drink = 0.6 oz pur e alcohol) Depression Answer Date Recorded Patient Health Questionnaire-9 Score 1 02/14/2022 Housing Stability Answer Date Recorded What is your housing situation today? I have volodymyr calderon 12/24/[address] you [...] AM EDT documented as of this encounter Plan of Treatment Upcoming Encounters Date Type Department Care Team (Late st Contact Info) Description 03/27/2024 8:00 AM EST Office Visit [facility] ADULT [facility] [address] [place], [place] [phone] Roxi Reagan, TITUS [address] [place] [address] documented as of this encounter Visit Diagnoses Not on filedocumented in this encounter Additional Health Concerns Assessment Noted Time PHQ-9 Depression Total Score: 1 02/15/20 22 4:00 PM EST documented as of this encounter Care Teams Wood Die Maker Relationship Specialty Start Date End Date Martha Joyner MD [address] [place] [address] PCP - General Family Medicine 02/22/21 [facility] Nurse Practitioner Endocrinology 01/08/24 documented as of this encounter
--- OUTSIDE RECORDS SUMMARY | 2024-03-24 17:20 | XMS_ITS | Encounter Summary ---
Author Organization [employer] Address [address] [facility] [address] [place] [address] Care Team Providers Care In Store Marketer Name Role Phone Martha Joyner MD Primary Care Provider [phone] Reason for Visit * Reason Comments Med Refill Encounter Details Date Type Department Care Team ([facility] st Contact Info) Description 07/21/2023 Refill [facility]EDS [address] [place], [place] [phone] Martha Joyner MD [address] [place] [address] Type 2 diabetes mellitus with hyperglycemia, without long-term current use of insulin ([facility]) Social History Tobacco Use Types Packs/Day Years Used Date Smoking Tobacco: Never Passive Smoke Exposure: Never Smokeless Tobacco: Never Alcohol Use Standard Drinks/Week Comments Never 0 (1 standard drink = 0.6 oz pur e alcohol) Depression Answer Date Recorded Patient Health Questionnaire-9 Score 17 07/18/2023 Patient Health Questionnaire-9 Score 17 07/18/2023 Last PHQ-9: Questionnaire Data Not on file 0 07/18/2023 Housing Stability Answer Date Recorded What is your housing situation today? I have volodymyr yumiko 12/24/[address] you li [...] Answer Date Recorded Patient Health Questionnaire-2 Score 6 07/18/2023 Sex and Gender Information Value Date Recorded Sex Assigned at Male 01/01/2022 10:39 AM EDT Legal Sex Male 10:39 AM EDT Gender Identity Male 01/01/2022 10:39 AM EDT Sexual Orientation Straight 01/01/2022 10 :39 AM EDT documented as of this encounter Plan of Treatment Upcoming Encounters Date Type Department Care Team (Late st Contact Info) Description 03/27/2024 8:00 AM EST Office Visit [facility] ADULT DENTAL [address] [place] [address] Roxi Reagan, DMD [address] [place] [address] documented as of this encounter Visit Diagnoses Diagnosis Type 2 diabetes mellitus with hyperglycemia, without long-term current use of insulin ([facility]) documented in this encounter Additional Health Concerns Assessment Noted Time PHQ-9 Depression Total Score: 17 024 5:09 PM EDT documented as of this encounter Care Teams In Store Marketer Relationship Specialty Start Date End Date Martha Joyner MD [address] [place] [address] PCP - General Family Medicine 02/22/21 Endo [facility] Nurse Practitioner Endocrinology 01/08/24 documented as of this encounter
--- OUTSIDE RECORDS SUMMARY | 2024-03-24 17:20 | XMS_ITS | Encounter Summary ---
Author Organization [employer] Address [address] [facility] 7t [place] [address] Care Team Providers Care Public Health Nutritionist Name Role Phone Martha Joyner MD Primary Care Provider [phone] Reason for Visit * Reason Comments Med Refill Encounter Details Date Type Department Care Team ([facility] st Contact Info) Description 03/16/[address] [facility] CHC MED & PEDS [address] [place], [place] [phone] Martha Joyner MD [address] [place] [address] Social History Tobacco Use Types Packs/Day Years Used Date Smoking Tobacco: Never Passive Smoke Exposure: Never Smokeless Tobacco: Never Alcohol Use Standard Drinks/Week Comments Never 0 (1 standard drink = 0.6 oz pur e alcohol) Depression Answer Date Recorded Patient Health Questionnaire-9 Score 19 09/12/2023 Patient Health Questionnaire-9 Score 19 09/12/2023 Last PHQ-9: Questionnaire Data Not on file 0 09/12/2023 Housing Stability Answer Date Recorded What is your housing situation today? I have volodymyr calderon 07/26/[address] you li ve. Do you have problems with any of the following? None of the above 07/26/2023 Food Insecurity Answer Date Recorded Within the past 12 months, y ou worried that your food would run out before you got money to buy more: Never True 07/26/2023 Within the past 12 months,th e food you bought just didn't last and you didn't have enough money to get more: Never True Transportation Answer Date Recorded In the past 12 months, has l ack of transportation kept you from medical appts, meetings, work or from getting things needed for daily living? No 07/26/2023 Utilities Answer Date Recorded In the past 12 months, has t he electric, gas, oil or water company threatened to shut off services in your home? No 07/26/2023 Depression Answer Date Recorded Patient Health Questionnaire-2 Score 6 09/12/2023 Sex and Gender Information Value Date Recorded Sex Assigned at Male 01/01/2022 10:39 AM EDT Legal Sex Male 10:39 AM EDT Gender Identity Male 01/01/2022 10:39 AM EDT Sexual Orientation Straight 01/01/2022 10 :39 AM EDT documented as of this encounter Plan of Treatment Upcoming Encounters Date Type Department Care Team (Late st Contact Info) Description 03/27/2024 8:00 AM EST Office Visit [facility] ADULT DENTAL [address] [place] [address] Roxi Reagan, DMD [address] [place] [address] documented as of this encounter Visit Diagnoses Not on filedocumented in this encounter Additional Health Concerns Assessment Noted Time PHQ-9 Depression Total Score: 19 024 3:19 PM EDT documented as of this encounter Care Teams Public Health Nutritionist Relationship Specialty Start Date End Date Martha Joyner MD [address] [place] [address] PCP - General Family Medicine 02/22/21 [facility] Nurse Practitioner Endocrinology 01/08/24 documented as of this encounter
--- OUTSIDE RECORDS SUMMARY | 2024-03-24 17:20 | XMS_ITS | Encounter Summary ---
Author Organization [employer] Address [address] [facility] 7t [place] [address] Care Team Providers Care Tool Repairer Bench Name Role Phone Martha Joyner MD Primary Care Provider [phone] Reason for Visit * Reason Onset Date Comments Med Refill 03/16/2024 Encounter Details Date Type Department Care Team ([facility] st Contact Info) Description 03/16/2024 Telephone [facility] MEDICINE [address] [place] [address] Martha Joyner MD [address] [place] [address] Med Refill Social History Tobacco Use Types Packs/Day Years [...] is your housing situation today? I have volodymyrbetty calderon 07/26/[address] you [...] encounter Miscellaneous Notes * Telephone Encounter - Sabiha Green - 03/16/2024 11:11 AM EST TC from pt requesting medication refill. Medications needing refill : carvedilol (Coreg) 6.25 MG tablet To be sent to: [facility] documented in this encounter Plan of Treatment Upcoming Encounters Date Type Department Care Team (Late st Contact Info) Description 03/27/2024 8:00 AM EST Office Visit [facility] CHC ADULT DENTAL [address] [place] [address] Roxi Reagan, DMD [address] [place] [address] documented as of this encounter Visit Diagnoses Not on filedocumented in this encounter Additional Health Concerns Assessment Noted Time PHQ-9 Depression Total Score: 19 024 3:19 PM EDT documented as of this encounter Care Teams Tool Repairer Bench Relationship Specialty Start Date End Date Martha Joyner MD [address] [place] [address] PCP - General Family Medicine 02/22/21 [facility] Nurse Practitioner Endocrinology 01/08/24 documented as of this encounter
--- OUTSIDE RECORDS SUMMARY | 2024-03-24 17:20 | XMS_ITS | Encounter Summary ---
Author Organization [employer] Address [address] [facility] 7[address] [place] [address] Care Team Providers Care Clay Dry Press Operator Name Role Phone Martha Joyner MD Primary Care Provider [phone] Encounter Details Date Type Department Care Team ([facility] st Contact Info) Description 05/01/2023 Telephone [facility] CHC MED & PEDS [address] [place], [place] [phone] Martha Joyner MD [address] [place], [place] [phone] Social History Tobacco Use Types Packs/Day Years Used Date Smoking Tobacco: Never Passive Smoke Exposure: Never Smokeless Tobacco: Never Alcohol Use Standard Drinks/Week Comments Never 0 (1 standard drink = 0.6 oz pur e alcohol) Depression Answer Date Recorded Patient Health Questionnaire-9 Score 1 02/14/2022 Housing Stability Answer Date Recorded What is your housing situation today? I have volodymyrbetty calderon 12/24/[address] you [...] Description 03/27/2024 8:00 AM EST Office Visit [facility] CHC ADULT DENTAL [address] [place], [place] [phone] Roxi Reagan, DMD [address] [place] [address] documented as of this encounter Visit Diagnoses Not on filedocumented in this encounter Additional Health Concerns Assessment Noted Time PHQ-9 Depression Total Score: 1 02/15/20 22 4:00 PM EST documented as of this encounter Care Teams Clay Dry Press Operator Relationship Specialty Start Date End Date Matrha Joyner MD [address] [place] [address] PCP - General Family Medicine 02/22/21 [facility] Nurse Practitioner Endocrinology 01/08/24 documented as of this encounter
--- OUTSIDE RECORDS SUMMARY | 2024-03-24 17:20 | XMS_ITS | Encounter Summary ---
Author Organization [employer] Address [address] [facility] 7t [place] [address] Care Team Providers Care Party Plan Sales Agent Name Role Phone Martha Joyner MD Primary Care Provider [phone] Reason for Visit * Reason Comments Filling Encounter Details Date Type Department Care Team ([facility] Contact Info) Description 03/06/2024 9:00 AM EST Office Visit [facility] CHC ADULT DENTAL [address] [place], [place] [phone] Roxi Reagan, DMD [address] [place], [place] [phone] Social History Tobacco Use Types Packs/Day Years [...] AM EDT documented as of this encounter Last Filed Vital Signs Vital Sign Reading Time Taken Comments Blood Pressure 120/76 03/06/2024 9:19 AM EST Pulse - - Temperature - - Respiratory Rate - - Oxygen Saturation - - Inhaled Oxygen Concentration - - Weight - - Height - - Body Mass Index - - documented in this encounter Progress Notes * Roxi Reagan DMD - 03/06/2024 9:00 AM EST Dental procedures in this visit D2393 - RESIN-BASED COMPOSITE - 3 SURFACES, POSTERIOR 14 MOL (Completed) Service provider: Roxi Reagan DMD Billing provider: Valerie Le DDS [id number] - CASE PRESENTATION, DETAILED AND EXTENSIVE TREATMENT PLANNING (Completed) Service provider: Roxi Reagan DMD Billing provider: Valerie Le DDS Patient ID: Edd Mendieta is a 43 y.o. male. Time Out: Date: 03/06/2024 Location: [facility] Tooth: #14 Procedure: Jehovah'S Witness Verified the above with patient, music library assistant, and provider. Confirmed via patient's chart, intraorally and by radiographs. Demo Specialist: not applicable Composite restorationist done on #[address] Roxi Reagan DMD Risk, benefits, and alternatives discussed with the patient. CONSENT FORM INITIALED & SIGNED BY THE PATIENT AND COUNTERSIGNED BY Dr. Roxi Reagan DMD Medical history: Reviewed in EHR Vitals: Blood pressure 120/76. Allergies: Reviewed in EHR Medications: Reviewed in EHR ASA II - LA: 20% topical benzocaine; local infiltration with 1 carpule 2% lidocaine 1:100,000 epinephrine - Existing restorationist and recurrent decay removed - Matrix band and wedge used as needed - Desensitizer: GLUMA - Dycal: Placed and dried - Base: Limelight placed and light cured - Etching done using 37% phosphoric acid and rinsed. - collection agent applied and light cured. - Composite restorationist done using Filtek body and flowable composite, shade A3. - Anatomy and margins adjusted. - Proximal contact confirmed with floss. - Occlusion checked with articulating paper. - Necessary reductions made. - Jehovah'S Witness smoothed and polished. - Post op instructions given - Patient made aware possible post op sensitivity. All patient questions answered. Patient comfortable upon dismissal. NV: Restorative Provider: Dr. Roxi Reagan DMD Saw Operator: Ping Anglin Supervising Dentist: Dr. Valerie Le DDS * Valerie Le DDS - 03/06/2024 9:00 AM EST I have reviewed the documentation and dental procedures completed by the rendering provider, Roxi Reagan DMD, and approve their chart entries for this visit. DANDRE Johns DDS documented in this encounter Plan of Treatment Upcoming Encounters Date Type Department Care Team (Late st Contact Info) Description 03/27/2024 8:00 AM EST Office Visit [facility] ADULT DENTAL [address] [place] [address] Roxi Reagan DMD [address] [place] [address] documented as of this encounter Procedures Procedure Name Priority Date/Time Associated Diagnosis Comments 14 MOL RESTORATIVE - RESIN-BASED COMPOSITE RESTORATIONS - DIRECT - RESIN-BASED COMPOSITE - THREE SURFACES, POSTERIOR Routine 03/06/2024 9:00 AM EST [facility] - PROFESSIONAL VISITS - CASE PRESENTATION, SUBSEQUENT TO DETAILED AND EXTENSIVE TREATMENT PLANNING Routine 03/06/2024 9:00 AM EST documented in this encounter Visit Diagnoses Not on filedocumented in this encounter Additional Health Concerns Assessment Noted Time PHQ-9 Depression Total Score: 19 07//2 024 3:19 PM EDT documented as of this encounter Care Teams Party Plan Sales Agent Relationship Specialty Start Date End Date Martha Joyner MD [address] [place] [address] PCP - General Family Medicine 02/22/21 [facility] Nurse Practitioner Endocrinology 01/08/24 documented as of this encounter
--- OUTSIDE RECORDS SUMMARY | 2024-03-24 17:20 | XMS_ITS | Encounter Summary ---
Author Organization [employer] Address [address] [facility] 7t [place] [address] Care Team Providers Care Belt Measurer Name Role Phone Martha Joyner MD Primary Care Provider [phone] Reason for Visit * Reason Comments Med Refill Encounter Details Date Type Department Care Team ([facility] st Contact Info) Description 05/30/2023 Refill [facility] CHC MED & PEDS [address] [place], [place] [phone] Martha Joyner MD [address] [place] [address] Primary hypertension Social History Tobacco Use Types Packs/Day Years [...] Description 03/27/2024 8:00 AM EST Office Visit [facility] CHC ADULT DENTAL [address] [place], [place] [phone] Roxi Reaagn, TITUS [address] [place] [address] documented as of this encounter Visit Diagnoses Diagnosis Primary hypertension Unspecified essential hypertension documented in this encounter Additional Health Concerns Assessment Noted Time PHQ-9 Depression Total Score: 1 02/15/20 22 4:00 PM EST documented as of this encounter Care Teams Belt Measurer Relationship Specialty Start Date End Date Martha Joyner MD [address] [place] [address] PCP - General Family Medicine 02/22/21 [facility] Nurse Practitioner Endocrinology 01/08/24 documented as of this encounter
--- OUTSIDE RECORDS SUMMARY | 2024-03-24 17:20 | XMS_ITS | Encounter Summary ---
Author Organization [facility] Address [address] [place] [address] Phone Care Team Providers Care Set Up And Lay Out Inspector Name Role Phone Martha Joyner MD Primary Care Provider [phone] Encounter Details Date Type Department Care Team (Late st Contact Info) Description 06/29/2021 Documentation Only [facility], [address] [place] [address] Martha Joyner MD [address] [place] [address] Social History Tobacco Use Types Packs/Day Years [...] on filedocumented in this encounter Care Teams Set Up And Lay Out Inspector Relationship Specialty Start Date End Date Martha Joyner MD PCP - General Family Medicine 06/29/21 documented as of this encounter
--- OUTSIDE RECORDS SUMMARY | 2024-03-24 17:20 | XMS_ITS | Encounter Summary ---
Author Organization [employer] Address [address] [place] [address] 7t [place] [address] Care Team Providers Care Shipper Name Role Phone Martha Joyner MD Primary Care Provider [phone] Encounter Details Date Type Department Care Team (Late Contact Info) Description 02/15/2022 Orders Only [facility] MED & PEDS [address] [place] [address] Martha Joyner MD [address] [place] [address] Type 2 diabetes mellitus with hyperglycemia, without long-term current use of insulin ([facility]) (Primary Dx) Social History Tobacco Use Types Packs/Day Years Used Date Smoking Tobacco: Never Smokeless Tobacco: Never Depression Answer Date Recorded Patient Health Questionnaire-9 Score 1 02/14/2022 Depression Answer Date Recorded Patient Health Questionnaire-2 Score 0 02/14/2022 Sex and Gender Information Value Date Recorded Sex Assigned at Male 01/01/2022 10:39 AM EDT Legal Sex Male 10:39 AM EDT Gender Identity Male 01/01/2022 10:39 AM EDT Sexual Orientation Straight 01/01/2022 10 :39 AM EDT COVID-19 Exposure Response Date Recorded In the last 10 days, have yo u been in contact with someone who was confirmed or suspected to have Coronavirus/COVID-19? No / Unsure 02/14/2022 3:37 PM EST documented as of this encounter Plan of Treatment Upcoming Encounters Date Type Department Care Team (Late st Contact Info) Description 03/27/2024 8:00 AM EST Office Visit [facility] ADULT D[facility] [address] [place] [address] Roxi Reagan, DMD [address] [place] [address] documented as of this encounter Procedures Procedure Name Priority Date/Time Associated Diagnosis Comments ALBUMIN, RANDOM URINE W/CREATININE Routine 11/09/2022 9:05 AM EDT Type 2 diabetes mellitus with hyperglycemia, without long-term current use of insulin (CMS/HCC) COMPREHENSIVE METABOLIC PANEL, FASTING Routine 11/09/2022 9:00 AM EDT Type 2 diabetes mellitus with hyperglycemia, without long-term current use of insulin (CMS/HCC) SED RATE BY MODIFIED WESTERGREN Routine 11/09/2022 9:00 AM EDT Type 2 diabetes mellitus with hyperglycemia, without long-term current use of insulin (CMS/HCC) GLUCOSE, WHOLE BLOOD Routine 07/27/2022 2:52 PM EDT Type 2 diabetes mellitus with hyperglycemia, without long-term current use of insulin (CMS/HCC) ALBUMIN, RANDOM URINE W/CREATININE Routine 05/18/2022 11:59 AM EDT Type 2 diabetes mellitus with hyperglycemia, without long-term current use of insulin (CMS/HCC) LIPID PANEL, STANDARD Routine 05/18/2022 11:47 AM EDT Type 2 diabetes mellitus with hyperglycemia, without long-term current use of insulin (CMS/HCC) GLUCOSE, WHOLE BLOOD Routine 05/18/2022 10:23 AM EDT Type 2 diabetes mellitus with hyperglycemia, without long-term current use of insulin (CMS/HCC) documented in this encounter Results * (ABNORMAL) Albumin, Random Urine W/Creatinine (11/09/2022 9:05 AM EDT) Creatinine, Urine 97.12 mg/dL [facility] Microalbumin Urine 900.0 mg/L [facility] Microalbum Creatinine Ratio Ur 926.6(H) <30 ug/mg cr [facility] Comment:Albumin/Creatinine R atio Reference Ranges: Normal: < 30 ug/mg creatinine Microalbuminuria: 30 - 300 ug/mg creatinineClinical Albuminuria: > 300 ug/mg creatinine 11/09/2022 9:05 AM EDT 11/09/2022 2:30 PM EDT Martha Joyner MD LAB URINE ORDERABLES Final Re sult Performing Organization Address [facility] Co de Phone Number [facility] [address] [place] [phone] * (ABNORMAL) Sed Rate by Modified Augustusren (11/09/2022 9:00 AM EDT) Erythrocyte Sedimentation Rate 34(H) 0 - 15 MM/HR [facility] Comment:Patients with polycy themia and many hemoglobin abnormalitiesmay have depressed sed rates whereas patients with anemiamay have elevated sed rates. 11/09/2022 9:00 AM EDT 11/09/2022 2:45 PM EDT Martha Joyner MD LAB BLOOD ORDERABLES Final Re sult Performing Organization Address [facility] Co de Phone Number [facility] [address] [place] [phone] * (ABNORMAL) Comprehensive Metabolic Panel, Fasting (11/09/2022 9:00 AM EDT) Sodium 139 135 - 145 mmol/L [facility] Potassium 4.5 3.3 - 5.1 mmol/L [facility] Chloride 106 96 - 108 mmol/L [facility] Carbon Dioxide 25 22 - 29 mmol/L [facility] Anion Gap 13 12 - 20 [facility] Urea Nitrogen (BUN) 26(H) 9 - 16 mg/dL [facility] Creatinine, Serum 1.35 0.5 - 1.4 mg/dL [facility] Estimated Glomerular Filt Rate 58 [facility] Comment:NOTE: For -Am erican individuals, multiply the result by 1.210.Chronic Kidney Disease: Estimated GFR < 60 mL/min/1.79g8Hjjwfj Kidney Disease: Estimated GFR < 15 mL/min/1.73m2 Glucose Fasting 109(H) 60 - 99 mg/dL [facility] Comment:A fasting glucose fr om 100-125 mg/dl is considered impaired(pre-diabetes). Calcium 10.1 8.4 - 10.2 mg/dL [facility] Bilirubin, Total 0.4 0.0 - 1.0 mg/dL [facility] Aspartate Amino Transferase 30 5 - 37 U/L [facility] Alanine Aminotransferase 27 0 - 40 U/L [facility] Total Protein 7.5 6.5 - 8.0 g/dL [facility] Albumin Level 3.9 3.5 - 5.0 g/dL [facility] Alkaline Phosphatase 78 39 - 117 U/L [facility] 11/09/2022 9:00 AM EDT 11/09/2022 2:45 PM EDT Martha Joyner MD LAB BLOOD ORDERABLES Final Re sult Performing Organization Address [facility] Co de Phone Number [facility] [address] [place] [phone] * (ABNORMAL) Glucose, Whole Blood (07/27/2022 2:52 PM EDT) Glucose, Whole Blood 183(H) 60 - 115 mg/dL [facility] Comment:METER #: [id number] 5Testing performed in the Endocrinology Department [address] , [address], [facility]. 07/27/2022 2:52 PM EDT 07/27/2022 2:56 PM EDT [facility] External Provider LAB BLO OD ORDERABLES Final Result Performing Organization Address City/[facility]/ZIP Co de Phone Number [facility] [address] [place] [address] [phone] * Albumin, Random Urine W/Creatinine (05/18/2022 11:59 AM EDT) Creatinine, Urine 72.74 mg/dL [facility] Microalbumin Urine 747.0 mg/L [facility] Microalbum Creatinine Ratio Ur 1,026.9 ug/mg cr [facility] Comment:Albumin/Creatinine R atio Reference Ranges: Normal: < 30 ug/mg creatinine Microalbuminuria: 30 - 300 ug/mg creatinineClinical Albuminuria: > 300 ug/mg creatinine 05/18/2022 11:5 9 AM EDT 05/18/2022 1:23 PM EDT us [facility] External Provider LAB URI NE ORDERABLES Final Result [facility] [address] [place] [address] [phone] * Lipid Panel, Standard (05/18/2022 11:47 AM EDT) Triglycerides 243 mg/dL [facility] Comment:Desirable Triglyceri de: less than 150 mg/dLBorderline High Triglyceride 150-199 mg/dLHigh Triglyceride: 200-499 mg/dLVery High Triglyceride: greater than or equal to 5OO mg/dL Cholesterol 152 mg/dL [facility] Comment:Desirable Cholestero l: less than 200 mg/dLBorderline High Cholesterol: 200-239 mg/dLHigh Cholesterol: greater than 239 mg/dL LDL Cholesterol Calculated 70 mg/dl [facility] Comment:Desirable LDL: less than 100 mg/dLNear Optimal/Above Optimal LDL: 110- 129 mg/dLBorderline High LDL: 130-159 mg/dLHigh LDL: 160-189 mg/dLVery High LDL: greater than or equal to 190 mg/dL HDL Cholesterol 34 mg/dL [facility] Comment:Desirable HDL: great er than 40 mg/dL Note: This HDL assay may give artificially low results in patients with liver disease. 05/18/2022 11:4 7 AM EDT 05/18/2022 1:23 PM EDT [facility] External Provider LAB BLO OD ORDERABLES Final Result Performing Organization Address [facility] Co de Phone Number [facility] [address] [place] [address] [phone] * (ABNORMAL) Glucose, Whole Blood (05/18/2022 10:23 AM EDT) Glucose, Whole Blood 172(H) 60 - 115 mg/dL [facility] Comment:METER #: [id number] 5Testing performed in the Endocrinology Department [address] , [address], [facility]. 05/18/2022 10:2 3 AM EDT 05/18/2022 10:28 AM EDT [facility] External Provider LAB BLO OD ORDERABLES Final Result Performing Organization Address [facility] de Phone Number [facility] [address] [place] [phone] documented in this encounter Visit Diagnoses Diagnosis Type 2 diabetes mellitus with hyperglycemia, without long-term current use of insulin (CMS/HCC)- Primary documented in this encounter Additional Health Concerns Assessment Noted Time PHQ-9 Depression Total Score: 1 02/15/20 22 4:00 PM EST documented as of this encounter Care Teams Shipper Relationship Specialty Start Date End Date Martha Joyner MD [address] [place] [address] PCP - General Family Medicine 02/22/21 [facility] Nurse Practitioner Endocrinology 01/08/24 documented as of this encounter
--- OUTSIDE RECORDS SUMMARY | 2024-03-24 17:20 | XMS_ITS | Encounter Summary ---
Author Organization [employer] Address [address] [facility] [place] [address] [place] [address] Care Team Providers Care System Development Manager Name Role Phone Martha Joyner MD Primary Care Provider [phone] Reason for Visit * Reason Onset Date Comments Nurse Triage 11/20/2023 Encounter Details Date Type Department Care Team ([facility] st Contact Info) Description 11/20/2023 Telephone [facility] MEDICINE [address] [place] [address] Martha Joyner MD [address] [place] [address] Nurse Triage Social History Tobacco Use Types Packs/Day Years Used Date Smoking Tobacco: Never Passive Smoke Exposure: Never Smokeless Tobacco: Never Alcohol Use Standard Drinks/Week Comments Never 0 (1 standard drink = 0.6 oz pur e alcohol) Depression Answer Date Recorded Patient Health Questionnaire-9 Score 09/12/2023 Patient Health Questionnaire-9 Score 09/12/2023 Last PHQ-9: Questionnaire Data Not on [...] encounter Miscellaneous Notes * Telephone Encounter - Jill Shea RN - 11/20/2023 2:45 PM EDT Triage call attempted x2. Pt didn't answer. Left voice message to call [facility] triage line at [phone] [phone]. * Telephone Encounter - Rangel Razo - 11/20/2023 2:03 PM EDT Symptoms: Back Pain - Not From Injury, Arm Pain - Not From Injury Outcome: Schedule an urgent appointment (within 1 hour) or talk to a nurse or provider soon Reason: Can't use the arm normally documented in this encounter Plan of Treatment Upcoming Encounters Date Type Department Care Team (Late st Contact Info) Description 03/27/2024 8:00 AM EST Office Visit [facility] ADULT DENTAL [address] [place] [address] Roxi Reagan, TITUS [address] [place] [address] documented as of this encounter Visit Diagnoses Not on filedocumented in this encounter Additional Health Concerns Assessment Noted Time PHQ-9 Depression Total Score: 19 024 3:19 PM EDT documented as of this encounter Care Teams System Development Manager Relationship Specialty Start Date End Date Martha Joyner MD [address] [place] [address] PCP - General Family Medicine 02/22/21 [facility] Nurse Practitioner Endocrinology 01/08/24 documented as of this encounter
--- OUTSIDE RECORDS SUMMARY | 2024-03-24 17:20 | XMS_ITS | Encounter Summary ---
Author Organization [employer] Address [address] [facility] [address] [place] [address] Care Team Providers Care Telegraph Office Manager Name Role Phone Martha Joyner MD Primary Care Provider [phone] Reason for Visit * Reason Comments Filling Encounter Details Date Type Department Care Team ([facility] Contact Info) Description 02/25/2024 8:00 AM EST Office Visit [facility] CHC ADULT DENTAL [address] [place], [place] [id number] Roxi Reagan, DMD [address] [place], [place] [id number] Social History Tobacco Use Types Packs/Day Years [...] Sign Reading Time Taken Comments Blood Pressure 114/74 02/25/2024 8:15 AM EST Pulse - - Temperature - - Respiratory Rate - - Oxygen Saturation - - Inhaled Oxygen Concentration - - Weight - - Height - - Body Mass Index - - documented in this encounter Progress Notes * Roxi Reagan DMD - 02/25/2024 8:00 AM EST Dental procedures in this visit D9999.6 - NO CHARGE - REDO PROCEDURE (Completed) Service provider: Roxi Reagan DMD Billing provider: Al Roach DMD [id number] - CASE PRESENTATION, DETAILED AND EXTENSIVE TREATMENT PLANNING (Completed) Service provider: Roxi Reagan DMD Billing provider: Al Roach DMD Patient ID: Edd Mendieta is a 43 y.o. male. Time Out: Date: 02/25/2024 Location: [facility] Tooth: #21 Procedure: Latter-Day Verified the above with patient, logistics assistant, and provider. Confirmed via patient's chart, intraorally and by radiographs. Profiler Hand: not applicable Composite hindu done on #[address] Roxi Reagan DMD Risk, benefits, and alternatives discussed with the patient. CONSENT FORM INITIALED & SIGNED BY THE PATIENT AND COUNTERSIGNED BY Dr. Roxi Reagan DMD Medical history: Reviewed in EHR Vitals: Blood pressure 114/74. Allergies: Reviewed in EHR Medications: Reviewed in EHR ASA II - LA: 20% topical benzocaine; local infiltration with 1 carpule 2% lidocaine 1:100,000 epinephrine - Existing hindu #21 DO performed Oct 2023 at [facility] and presents with cracked DL margin. Latter-Day to be re-done at no charge. - Matrix band, Jackson and wedge used as needed - Desensitizer: GLUMA - Etching done using 37% phosphoric acid. - tariff publishing agent applied. - Composite hindu done using Filtek body and flowable composite, shade A3. - Anatomy and margins adjusted. - Proximal contact confirmed with floss. - Occlusion checked with articulating paper. - Tooth #12 and #13 present with plunger cusps affecting tooth #21 occlusion. Plunger cusps roundedoff with white stone / fine tc burs. - Necessary reductions made. - Latter-Day smoothed and polished. - Post op instructions given - Patient made aware possible post op sensitivity Patient also planned for tooth #19 O hindu. Upon clinical examination, existing hindu presents with slight overbulk on occlusal surface. No recurrent caries noted radiographically. Tooth #19 O surface smoothed with white stone burs. No open margins or caries present. #19 O to be monitored. All patient questions answered. Patient comfortable upon dismissal. NV: Restorative Provider: Dr. Roxi Reagan DMD Production Support Developer: Ping Anglin Supervising Dentist: Dr. Al Roach DMD * Al Roach DMD - 02/25/2024 8:00 AM EST I have reviewed the documentation and dental procedures made by the rendering provider, Roxi Reagan DMD, and approve their chart entries for this visit. Al Roach DMD documented in this encounter Plan of Treatment Upcoming Encounters Date Type Department Care Team (Late st Contact Info) Description 03/27/2024 8:00 AM EST Office Visit [facility] ADULT DENTAL [address] [place] [address] Roxi Reagan DMD [address] [place] [address] documented as of this encounter Procedures Procedure Name Priority Date/Time Associated Diagnosis Comments NO CHARGE - REDO PROCEDURE Routine 02/25/2024 8:00 AM EST [facility] - PROFESSIONAL VISITS - CASE PRESENTATION, SUBSEQUENT TO DETAILED AND EXTENSIVE TREATMENT PLANNING Routine 02/25/2024 8:00 AM EST documented in this encounter Visit Diagnoses Not on filedocumented in this encounter Additional Health Concerns Assessment Noted Time PHQ-9 Depression Total Score: 19 024 3:19 PM EDT documented as of this encounter Care Teams Telegraph Office Manager Relationship Specialty Start Date End Date Martha Joyner MD [address] [place] [phone] PCP - General Family Medicine 02/22/21 [facility] Nurse Practitioner Endocrinology 01/08/24 documented as of this encounter
--- OUTSIDE RECORDS SUMMARY | 2024-03-24 17:20 | XMS_ITS | Clinical Summary ---
Author Organization [employer] Address [address] [facility] [address] [place] [address] Care Team Providers Care Order Builder Loader Name Role Phone Martha Joyner MD Primary Care Provider [phone] Allergies No known active allergies Medications * This document contains information received from the source organization and may not represent a complete record from that organization. albuterol 108 (90 Base) MCG/ACT inhaler Inhale 2 puffs every 4 (four) hours if needed. 06/30/19 22 Active glucose blood (FREESTYLE LITE) test strip 1 each at bed time. 08/02/19 22 Active lidocaine (Lidoderm) 5 % patch Place 1 patch on the skin at bed time. 08/25/19 22 Active Continuous Blood Gluc Sensor (FreeStyle Jeannette 3 Sensor) [facility] [place] USE DIRECTED TO TEST BLOOD SUGAR CHANGE EVERY 14 DAYS 09/12/19 23 Active methocarbamol (Robaxin) 750 MG tabletIndication s:Low back pain at multiple sites Take 1 tablet (750 mg) by mouth 4 times daily for 10 days. 40 tablet 08/16/19 24 Active valsartan (Diovan) 320 MG tabletIndication s:Primary hypertension TAKE 1 TABLET BY MOUTH EVERY DAY IN THE MORNING 90 tablet 1 11/20/19 24 Active metFORMIN XR (Glucophage-XR) 500 MG 24 hr tabletIndication s:Type 2 diabetes mellitus with hyperglycemia, without long-term current use of insulin (CMS/HCC) TAKE 2 TABLETS BY MOUTH TWICE DAILY WITH FOOD DO NOT BREAK, CRUSH, DISSOLVE OR CHEW 360 tablet 1 12/04/19 24 Active Mounjaro 10 MG/0.5ML solution auto-injector 01/06/20 24 Active Ketotifen Fumarate 0.035 % solutionIndicati ons:Itch of eye Administer 1 drop into affected eye(s) 2 times daily. 10 mL 3 01/08/20 24 Active acetic acid-hydrocortis one (Vosol-HC) otic solutionIndicati ons:Ear itch Administer 4 drops into each ear 2 times daily. 10 mL 3 01/08/20 24 Active allopurinol (Zyloprim) 300 MG tabletIndication s:Gout, unspecified cause, unspecified chronicity, unspecified site TAKE 1 TABLET BY MOUTH EVERY DAY AT BEDTIME 90 tablet 1 02/17/20 24 Active carvedilol (Coreg) 6.25 MG tablet TAKE 1 TABLET BY MOUTH TWICE DAILY IN THE MORNING AND IN THE EVENING WITH MEALS 60 tablet 5 03/16/19 25 Active carvedilol (Coreg) 6.25 MG tablet Take 1 tablet (6.25 mg) by mouth with breakfast and with evening meal. 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 During examination Balanitis was observed. Medication was prescribed. Acute anal fissure 06/25/2022 Assessment & Plan (06/25/2022 11:58 AM EDT): Patient with concerns of blood in stool and pain when eliminating feces and sitting. Will refer to Gastroenterology. Morbid obesity 04/17/2022 Assessment & Plan (01/23/2024 9:49 AM EST): Discussed calorie deficit, recommended reduction of 20-30% of maintenance calories. Recommended to decrease soda and sugary beverage consumption. Recommended at least 20 g per meal of protein to assist with satiety. Recommended at least 150 min/week of moderate intensity exercise. - Currently on high dose of GLP-1 w/o any weight loss - will refer to bariatric surgery Assessment & Plan (04/17/2022 1:28 PM EST): At this point, will benefit of bariatric medicine/surgery assessment. Hypertension 07/07/2021 Assessment & Plan (05/14/2023 12:12 AM EDT): Controlled. Continue current regimen. Assessment & Plan (2022 4:07 PM EDT): Controlled. Refilled and continue current regimen. Type 2 diabetes mellitus wit h hyperglycemia, without long-term current use of insulin 07/07/2021 Assessment & Plan (08/05/2023 4:27 PM EDT): This patient has diabetes and uses different medication as part of his diabetes treatment plan. For his safety, I have advised this patient to check his blood glucose level at least four times daily, including before meals, before bed, periodically after meals, if he believes he might be experiencing hypoglycemia, or if he is ill. As part of his comprehensive diabetes treatment plan, in order to help him lower his HbA1c to target and/or maintain his HbA1c at target, to alert him to and to detect hypoglycemia, and/or to reduce hypoglycemia. Being able to use a continuous glucose monitoring system will therefore help increase their short term and long-term safety. ).This patient has been using and benefiting from using a continuous glucose monitoring system, he should be allowed to continue to do so. TIR 100%, Use 96%. GMI 6.1% Assessment & Plan (05/14/2023 12:15 AM EDT): Controlled: A1C = 6.6% and glucose at 117. Continue treatment regimen for DM. Advised to keep monitoring. Assessment & Plan (10/01/2022 4:44 PM EDT): A1C = 7.3 Glu = 109 Patient is managed [facility]. His DM2 is trending in the right direction. He is taking his metformin and farxiga along with his mounjaro. Denies hypoglycemic episodes. No medication changes advised today. F/up 3 months for DM2. Counseled weight loss, dietary changes including watching carbs, exercise 30 min/ day, most days. ED precautions discussed. Hypoglycemia discussed. Offered glucose tablets for possible hypoglycemic episodes. Patient reports he carries candies with him. He knows he can call in and request glucose tabs anytime. Assessment & Plan (2022 4:06 PM EDT): Improvement in Glucose levels. Continue taking mounjaro as perscribed by wall worker. Will montior and lower metformin as needed. Discontinue ozempic and follow up in 3 months. Assessment & Plan (04/17/2022 1:28 PM EST): No results found for: HGBA1C Patient with uncontrolled DM. He is max dose of GLP-1 agonist. Requested for him to start basal insulin, target fasting 80-130 mg/dL, will also start SGLT-2. Reports significant side effects with metformin, hence will discontinue. At this point will f/u within 4-6 weeks. He has upcoming appt with endocrinology in May 2022. Assessment & Plan (02/27/2022 4:14 PM EST): Reports intolerable side effects with metformin, will reduce dose, on ER. Not using lantus, fastings not at target, incr rajni. Patient inquired of switching to ozempic, discussed concern of low availability in pharmacies will cont with rajni for now and readdress in the future. He also brought up use of SGLT-2, given information and discuss introduction in the future, f/up in 4-6 weeks. Assessment & Plan (02/14/2022 5:11 PM EST): Patient with elevated a1c of 10.7% and glucoe of [facility]. No measuring his glucose at home, will start on insulin, patient has not picked up ozempic which was sent to the pharmacy around 1 week ago. Also increased dose of metformin to 1 g BID, was on 850 mg BID. At this moment, patient requested referral to endocrinology which I placed. F/u in 1 week and strongly recommended monitoring. Resolved Problems Problem Noted Date Diagnosed Date Resolved Date Conjunctivitis of both eyes 01/04/2023 01/08/2024 Assessment & Plan (01/04/2023 10:50 AM EDT): Patient that presented visit with complaints of conjunctivitis will be prescribed Ketotifen Fumarate and Trimethoprim-Polymyxin B. Dizziness 05/21/2022 05/13/2023 Encounters * This document contains information received from the source organization and may not represent a complete record from that organization. Date Type Department Care Team Description 03/16/2024 Telephone [facility] [address] [place] [phone] Martha Joyner MD Med Refill 03/16/[address] [facility] [address] [place] [address] Martha Joyner MD 03/06/2024 9:00 AM EST Office Visit [facility] [address] [place] [address] Roxi Reagan, TITUS 02/25/2024 8:00 AM EST Office Visit [facility] [address] [place] [address] Roxi Reagan DMD 02/17/[address] [facility] [address] [place] [address] Martha Joyner MD Gout, unspecified cause, unspecified chronicity, unspecified site 02/13/2024 11:30 AM EST Office Visit [facility] [address] [place] [address] Roxi Reagan DMD 02/13/2024 Orders Only GENERIC EXTERNAL DATA DEPARTMENT Provider, Generic External Data 01/20/2024 3:00 PM EST Office Visit [facility] [address] [place] [address] Harvinder Newberry Dental calculus (Primary Dx) 01/08/2024 3:45 PM EST Office Visit [facility] [address] [place] [address] Martha Joyner MD Itch of eye (Primary Dx); Ear itch; Morbid obesity (CMS/HCC) 01/08/2024 Telephone [facility] [address] [place] [address] Martha Joyner MD 01/08/2024 Travel 01/06/2024 Orders Only GENERIC EXTERNAL DATA DEPARTMENT Provider, Generic External Data 01/01/2024 Patient Outreach [facility] [address] [place] [address] Martha Joyner MD Pre-visit Planning (SDOH screening completed on 07/26/2023./) from Last 3 Months Immunizations Name Administration Dates Next Due Tdap 04/10/2021 Social History Tobacco Use Types Packs/Day Years Used Date Smoking Tobacco: Never Passive Smoke Exposure: Never Smokeless Tobacco: Never Tobacco Cessation:Counseling Given: Not Answered Alcohol Use Standard Drinks/Week Comments Never 0 [...] Orientation Straight 01/01/2022 10 :39 AM EDT Last Filed Vital Signs Vital Sign Reading Time Taken Comments Blood Pressure 120/76 03/06/2024 9:19 AM EST Pulse 60 01/20/2024 4:04 PM EST Temperature 37.1 ??C (98.7 ??F) 01/08/2024 3:44 PM ES T Respiratory Rate 20 01/08/2024 3:44 PM EST Oxygen Saturation 98% 01/08/2024 3:44 PM EST Inhaled Oxygen Concentration - - Weight 144 kg (316 lb 12.8 oz) 01/08/2024 3:44 P M EST Height 180.3 cm (5' 11 ) 01/08/2024 3:44 PM EST Body Mass Index 44.18 01/08/2024 3:44 PM EST Plan of Treatment Upcoming Encounters Date Type Department Care Team (Late st Contact Info) Description 03/27/2024 8:00 AM EST Office Visit [facility] [address] [place] [address] Roxi Reagan, DMD [address] [place] [address] Health Maintenance Due Date Last Done Comments Diabetes: Foot Exam 06/13/1989 Alcohol/Substance Use Screening 1991 Family Planning (PISQ) 06/13/1994 Hepatitis A Vaccines (1 of 2 - Risk 2-dose series) 06/13/1998 Hepatitis B Vaccines (1 of 3 - 19+ 3-dose series) 06/13/1998 COVID-19 Vaccine ( season) 2023 02/21/2022, 08/03/2021 Diabetes: Urine Protein Screening 11/10/2023 11/09/2022, 05/18/2022, 03/27/2021 Lipid Panel 11/10/2023 11/09/2022, 05/02, 03/27/2021 Diabetes: Hemoglobin A1C 02/04/2024 024, 05/13/2023, 10/01/2022, Additional history exists Depression Monitoring (PHQ-9) 03/14/2024 09/12/2023, 09/12/2023 Dental Prophylaxis 07/20/2024 01/20/2024 SDOH Screening 07/25/2024 07/26/2023 Dental Oral Exam 08/14/2024 02/13/2024 Influenza Vaccine (#1) 2024 Postp oned from 11/03/2023 (Patient Refused) Depression Screening 09/11/2024 09/12/2023, 09/12/19 Pneumococcal Vaccine: Pediatrics (0 to 5 Years) and At-Risk Patients (6 to 64 Years) (1 of 2 - PCV) 01/07/2025 Postponed from 06/13/1985 (Patient Refused) Dental X-Ray: Bitewings 01/20/2025 01/20/2024, 10/02 Tobacco Screening 03/06/2025 03/06/2024 Eye Exam 11/18/2025 11/19/2023 Dental X-Ray: Full Mouth 02/13/2027 02/13/2024, 01/02 Zoster Vaccines (1 of 2) 06/13/2029 DTaP/Tdap/Td Vaccines (2 - Td or Tdap) 04/10/2031 04/10/2021 RSV Patients and Patients Aged 60 years or older (1 - 1-dose 75+ series) 06/13/2054 HIV Screening Completed 05/26/2021 Hepatitis C Screening Completed 11/09/2022, 022 HIB Vaccines Aged Out No longer eligi ble based on patient's age to complete this topic HPV Vaccines Aged Out No longer eligi ble based on patient's age to complete this topic IPV Vaccines Aged Out No longer eligi ble based on patient's age to complete this topic Meningococcal Vaccine Aged Out No travis karen eligible based on patient's age to complete this topic RSV under 20 months Aged Out No longe r eligible based on patient's age to complete this topic Rotavirus Vaccines Aged Out No longer eligible based on patient's age to complete this topic Procedures Procedure Name Priority Date/Time Associated Diagnosis Comments ADJUNCTIVE GENERAL SERVICES - PROFESSIONAL VISITS - CASE PRESENTATION, SUBSEQUENT TO DETAILED AND EXTENSIVE TREATMENT PLANNING Routine 03/06/2024 9:00 AM EST 14 MOL RESTORATIVE - RESIN-BASED COMPOSITE RESTORATIONS - DIRECT - RESIN-BASED COMPOSITE - THREE SURFACES, POSTERIOR Routine 03/06/2024 9:00 AM EST ADJUNCTIVE GENERAL SERVICES - PROFESSIONAL VISITS - CASE PRESENTATION, SUBSEQUENT TO DETAILED AND EXTENSIVE TREATMENT PLANNING Routine 02/25/2024 8:00 AM EST NO CHARGE - REDO PROCEDURE Routine 02/25/2024 8:00 AM EST ESTRADIOL Routine 02/13/2024 3:46 PM EST TESTOSTERONE, TOTAL, MALES (ADULT), IA Routine 02/13/2024 3:46 PM EST SEX HORMONE BINDING GLOBULIN Routine 02/13/2024 3:46 PM EST LH Routine 02/13/2024 3:46 PM EST ALBUMIN Routine 02/13/2024 3:46 PM EST ADJUNCTIVE GENERAL SERVICES - PROFESSIONAL VISITS - CASE PRESENTATION, SUBSEQUENT TO DETAILED AND EXTENSIVE TREATMENT PLANNING Routine 02/13/2024 11:30 AM EST PANORAMIC RADIOGRAPHIC IMAGE Routine 02/13/2024 11:30 AM EST COMPREHENSIVE ORAL EVALUATION - NEW OR ESTABLISHED PATIENT Routine 02/13/2024 11:30 AM EST 31 O AMALGAM FILLING Routine 02/13/2024 12:00 AM EST 30 O AMALGAM FILLING Routine 02/13/2024 12:00 AM EST 29 O COMPOSITE FILLING Routine 4 12:00 AM EST 28 O COMPOSITE FILLING Routine 4 12:00 AM EST 21 MOD COMPOSITE FILLING Routine 02/13/2024 12:00 AM EST 20 O COMPOSITE FILLING Routine 4 12:00 AM EST 19 O COMPOSITE FILLING Routine 4 12:00 AM EST 18 O COMPOSITE FILLING Routine 4 12:00 AM EST 15 DO COMPOSITE FILLING Routine 02/13/2024 12:00 AM EST 14 MO COMPOSITE FILLING Routine 02/13/2024 12:00 AM EST 13 O COMPOSITE FILLING Routine 4 12:00 AM EST 12 O COMPOSITE FILLING Routine 4 12:00 AM EST 5 O COMPOSITE FILLING Routine 02/13/2024 12:00 AM EST 4 DO COMPOSITE FILLING Routine 4 12:00 AM EST 3 MO COMPOSITE FILLING Routine 12:00 AM EST 2 O COMPOSITE FILLING Routine 02/13/2024 12:00 AM EST ADJUNCTIVE GENERAL SERVICES - PROFESSIONAL VISITS - CASE PRESENTATION, SUBSEQUENT TO DETAILED AND EXTENSIVE TREATMENT PLANNING Routine 01/20/2024 3:00 PM EST ORAL HYGIENE INSTRUCTIONS Routine 01/20/2024 3:00 PM EST DIAGNOSTIC - DIAGNOSTIC IMAGING - INTRAORAL - COMPREHENSIVE SERIES OF RADIOGRAPHIC IMAGES Routine 01/20/2024 3:00 PM EST PROPHYLAXIS - ADULT Routine 01/20/2024 3 :00 PM EST GLUCOSE, WHOLE BLOOD Routine 01/06/2024 9:25 AM EST POCT GLYCATED HEMOGLOBIN, TOTAL Routine 08/05/2023 4:25 PM EDT Type 2 diabetes mellitus with hyperglycemia, without long-term current use of insulin (CMS/HCC) ALBUMIN, RANDOM URINE W/CREATININE Routine 11/09/2022 9:05 AM EDT Type 2 diabetes mellitus with hyperglycemia, without long-term current use of insulin (CMS/HCC) HEPATITIS C ANTIBODY Routine 11/09/2022 9:00 AM EDT Type 2 diabetes mellitus with hyperglycemia, without long-term current use of insulin (CMS/HCC) LIPID PANEL, STANDARD Routine 11/09/2022 9:00 AM EDT Type 2 diabetes mellitus with hyperglycemia, without long-term current use of insulin (CMS/HCC) HIV 1/2 ANTIGEN/ANTIBODY, FOURTH GENERATION W/RFL Routine 05/26/2021 9:29 AM EDT from Last 3 Months or Most Recently Relevant to Health Maintenance Results * (ABNORMAL) Sex Hormone Binding Globulin (SHBG) (02/13/2024 3:46 PM EST) Sex Hormone Binding Globulin 57(A) 10 - 50 nmol/L [facility] Comment:THIS TEST WAS PERFOR MED AT:[employer] [place] [id number] FISHMAN MD 02/13/2024 3:46 PM EST 02/13/2024 3:46 PM EST us Generic External Data Provider LAB BLOOD ORDERAB LES Final Result Performing Organization Address [facility] de Phone Number [facility] [address] [place] [phone] * (ABNORMAL) Estradiol (02/13/2024 3:46 PM EST) Pathologist [facility] Estradiol Ultra Sensitive 86(A) < OR = 29 pg/mL [facility] Comment:This test was develo ped and its analytical performancecharacteristics have been determined by [employer].It has not been cleared or approved by FDA. This assay hasbeen validated pursuant to the CLIA regulations and is usedfor clinical purposes.THIS TEST WAS PERFORMED AT:[employer] [id number] [facility] [place] [address]ERCGAJOSÉ LUIS MOCTEZUMA MD,PHD,FRANK 02/13/2024 3:46 PM EST 02/13/2024 3:46 PM EST Generic External Data Provider LAB BLOOD ORDERAB LES Final Result Performing Organization Address [facility] Phone Number [facility] [address] [place] [phone] * Testosterone, Total, males (Adult), IA (02/13/2024 3:46 PM EST) [facility] Testosterone, Total 734 250 - 1100 ng/dL [facility] Comment:For additional infor mation, please refer tohttp://education.[employer]/faq/NchgyHewetqddnabgERWDGADGN470(This link is being provided for informational/educational purposes only.)This test was developed and its analytical performancecharacteristics have been determined by [employer] [place], [place]. It hasnot been cleared or approved by the U.S. Food and DrugAdministration. This assay has been validated pursuantto the CLIA regulations and is used for clinicalpurposes.THIS TEST WAS PERFORMED AT:[employer]/[id number] [place] [address]FCDMAPHLAURY ELLIS MD,PHD 02/13/2024 3:46 PM EST 02/13/2024 3:46 PM EST us Generic External Data Provider LAB BLOOD ORDERAB LES Final Result Performing Organization Address [facility] Co de Phone Number [facility] [address] [place] [phone] * (ABNORMAL) LH (02/13/2024 3:46 PM EST) Lutenizing Hormone 12.1(A) 1.5 - 9.3 mIU/mL [facility] Comment:THIS TEST WAS PERFOR MED AT:[employer] [address] [id number] FISHMAN MD 02/13/2024 3:46 PM EST 02/13/2024 3:46 PM EST us Generic External Data Provider LAB BLOOD ORDERAB LES Final Result Performing Organization Address [facility] Phone Number [facility] [address] [place] [phone] * Albumin (02/13/2024 3:46 PM EST) Albumin Level 3.6 3.5 - 5.0 g/dL [facility] 02/13/2024 3:46 PM EST 02/13/2024 3:46 PM EST us Generic External Data Provider LAB BLOOD ORDERAB LES Final Result Performing Organization Address [facility] Co de Phone Number [facility] [address] [place] [phone] * Glucose, Whole Blood (01/06/2024 9:25 AM EST) Glucose, Whole Blood 112 60 - 115 mg/dL [facility] Comment:METER #: [id number] Testing performed in the Endocrinology Department [address] , [address], [place]. 01/06/2024 9:25 AM EST 01/06/2024 9:29 AM EST us Generic External Data Provider LAB BLOOD ORDERAB LES Final Result Performing Organization Address [facility]/ZIP Co de Phone Number [facility] [address] [place] [phone] * (ABNORMAL) POCT HGB A1C (08/05/2023 4:25 PM EDT) Hemoglobin A1C 6.2(A) 4.0 - 6.0 % QC Media Lot # [id number] Lot# Expiration Date Blood 08/05/2023 4:25 PM EDT us Martha Joyner MD POINT OF CARE TEST ENTER/EDIT ORDERABLES Final Result * (ABNORMAL) Albumin, Random Urine W/Creatinine (11/09/2022 9:05 AM EDT) Pathologist [facility] Creatinine, Urine 97.12 mg/dL [facility] Microalbumin Urine 900.0 mg/L [facility] Microalbum Creatinine Ratio Ur 926.6(H) <30 ug/mg cr [facility] Comment:Albumin/Creatinine R atio Reference Ranges: Normal: < 30 ug/mg creatinine Microalbuminuria: 30 - 300 ug/mg creatinineClinical Albuminuria: > 300 ug/mg creatinine 11/09/2022 9:05 AM EDT 11/09/2022 2:30 PM EDT us Martha Joyner MD LAB URINE ORDERABLES Final Re sult Performing Organization Address City/[facility]/ZIP Co de Phone Number [facility] [address] [place] [phone] * Hepatitis C Ab (11/09/2022 9:00 AM EDT) Hepatitis C Antibody Nonreactive Nonreactive [facility] Comment:Antibodies to HCV no t detected; does not exclude early acuteHCV infection. Blood 11/09/2022 9:00 AM EDT 11/09/2022 2:35 PM EDT us Martha Joyner MD LAB BLOOD ORDERABLES Final Re sult [facility] [address] [place] [phone] * (ABNORMAL) Lipid Panel, Standard (11/09/2022 9:00 AM EDT) Pathologist [facility] Triglycerides 140 <150 mg/dL [facility] Comment:Desirable Triglyceri de: less than 150 mg/dLBorderline High Triglyceride 150-199 mg/dLHigh Triglyceride: 200-499 mg/dLVery High Triglyceride: greater than or equal to 5OO mg/dL Cholesterol 137 <200 mg/dL [facility] Comment:Desirable Cholestero l: less than 200 mg/dLBorderline High Cholesterol: 200-239 mg/dLHigh Cholesterol: greater than 239 mg/dL LDL Cholesterol Calculated 77 <100 mg/dL [facility] Comment:Desirable LDL: less than 100 mg/dLNear Optimal/Above Optimal LDL: 110- 129 mg/dLBorderline High LDL: 130-159 mg/dLHigh LDL: 160-189 mg/dLVery High LDL: greater than or equal to 190 mg/dL HDL Cholesterol 32(L) >40 mg/dL [facility] Comment:Desirable HDL: great er than 40 mg/dL Note: This HDL assay may give artificially low results in patients with liver disease. Blood Venous blood specimen / Unknown 11/09/2022 9:00 AM EDT 11/09/2022 2:45 PM EDT us Martha Joyner MD LAB BLOOD ORDERABLES Final Re sult [facility] [address] [place] [phone] * HIV 1/2 ANTIGEN/ANTIBODY,FOURTH GENERATION W/RFL (05/26/2021 9:29 AM EDT) HIV-1/2 ANTIGEN AND ANTIBODIES, 4TH GENERATION W/ REFLEX NON-REACT TABITHA NON-REACT TABITHA [facility] Comment: HIV-1 antigen and HIV-1/HIV-2 antibodies were not detected. There is no laboratory evidence of HIV infection. ?? PLEASE NOTE: This information has been disclosed to you from records whose confidentiality may be protected by state law. ??If your state requires such protection, then the state law prohibits you from making any further disclosure of the information without the specific written consent of the person to whom it pertains, or as otherwise permitted by law. A general authorization for the release of medical or other information is NOT sufficient for this purpose. ? For additional information please refer to http://education.[employer]/faq/POP363 (This link is being provided for informational/ educational purposes only.) ? The performance of this assay has not been clinically validated in patients less than 2 years old. ?? 05/26/2021 9:29 AM EDT us Martha Joyner MD LAB BLOOD ORDERABLES Final Re sult [facility] [address] from Last 3 Months or Most Recently Relevant to Health Maintenance Insurance [facility] DENTAL - HSN PARTIAL (MEDICAID) Care Teams Order Builder Loader Relationship Specialty Start Date End Date Martha Joyner MD [address] [place] [address] PCP - General Family Medicine 02/22/21 [facility] Nurse Practitioner Endocrinology 01/08/24
--- OUTSIDE RECORDS SUMMARY | 2024-03-24 17:20 | XMS_ITS | Encounter Summary ---
Author Organization [employer] Address [address] [facility] 7t [place] [address] Care Team Providers Care Sergeant Missile Crewman Name Role Phone Martha Joyner MD Primary Care Provider [phone] Reason for Visit * Reason Comments Med Refill Encounter Details Date Type Department Care Team ([facility] Contact Info) Description 03/11/2023 Telephone [facility] [address] [place], [place] [phone] Martha Joyner MD [address] [place] [address] Med Refill Social History Tobacco Use Types [...] encounter Miscellaneous Notes * Telephone Encounter - Bing Lawson RN - 03/14/2023 1:00 PM EST Images from the original note were not included. MD Deya Bryson [facility] Peds Nurses Caller: Unspecified (Yesterday, 1:10 PM) Hi! Please could you follow up on the urology referral I placed, and if a appointment already givencould it be scheduled as soon as possible? TC placed to [facility] urology @ [phone] to see if patient has been seen yet or has an upcoming appointment. They reported that patient has been scheduled for earlier appointments but keepspushing the date further out. Currently scheduled for 03/29/23 @ 3:45pm. They stated that if the ultrasound report is sent to them, they can try to get him in further. Although U/S report sent to scan, it is not yet available in chart. TC placed to [facility] @ [phone] to request U/S report be faxed to [facility] @ [phone]. They faxed it. TC placed to patient to encourage him to make a sooner appointment with urology or at least keep his upcoming appointment. No answer. LM to call us back. Routing to Dr. Doran so he is aware and back to [facility] nurses so they can try again. Patient has f/u with PCP scheduled for 04/02/23. Notes added to appointment for that day. documented in this encounter Plan of Treatment Upcoming Encounters Date Type Department Care Team (Late st Contact Info) Description 03/27/2024 8:00 AM EST Office Visit [facility] [address] [place] [address] Roxi Reagan, TITUS [address] [place] [address] documented as of this encounter Visit Diagnoses Not on filedocumented in this encounter Additional Health Concerns Assessment Noted Time PHQ-9 Depression Total Score: 1 02/15/20 22 4:00 PM EST documented as of this encounter Care Teams Sergeant Missile Crewman Relationship Specialty Start Date End Date Martha Joyner MD [address] [place] [address] PCP - General Family Medicine 02/22/21 [facility] Nurse Practitioner Endocrinology 01/08/24 documented as of this encounter
--- OUTSIDE RECORDS SUMMARY | 2024-03-24 17:20 | XMS_ITS | Encounter Summary ---
Author Organization [employer] Address [address] [place] [address] 7 [place] [address] Care Team Providers Care Sleeve Setter Safety Stitch Name Role Phone Martha Joyner MD Primary Care Provider Reason for Visit * Reason Comments Med Refill Encounter Details Date Type Department Care Team ([facility] Contact Info) Description 10/15/2022 Refill [facility] [address] [place] [address] Martha Joyner MD [address] [place] [address] Type 2 diabetes mellitus with hyperglycemia, without long-term current use of insulin ([facility]) Social History Tobacco Use Types Packs/Day Years [...] Encounters Date Type Department Care Team (Late Contact Info) Description 03/27/2024 8:00 AM EST Office Visit [facility] [address] [place] [address] Roxi Reagan DMD [address] [place] [address] documented as of this encounter Visit Diagnoses Diagnosis Type 2 diabetes mellitus with hyperglycemia, without long-term current use of insulin ([facility]) documented in this encounter Additional Health Concerns Assessment Noted Time PHQ-9 Depression Total Score: 1 02/15/20 22 4:00 PM EST documented as of this encounter Care Teams Sleeve Setter Safety Stitch Relationship Specialty Start Date End Date Martha Joyner MD [address] [place] [address] PCP - General Family Medicine 02/22/21 [facility] Nurse Practitioner Endocrinology 01/08/24 documented as of this encounter
== END 2024-03-24 15:50 | disposition home or self-care (01) ==
PROVIDERS: PCP Family Medicine; Visit Provider Urology
DX: R68.82 Decreased libido (principal); E29.1 Testicular hypofunction
CPT/HCPCS: 99213; G2211

== ENCOUNTER → 2024-03-24 15:22 | Outpatient (BNVA) | payer OTHER, SELFPAY | PROVIDERS: PCP Family Medicine; Visit Provider Urology | DX: R68.82 Decreased libido (principal); E29.1 Testicular hypofunction | CPT/HCPCS: 99212 ==

== ENCOUNTER 2024-04-15 08:20 | Outpatient (REF) | payer OTHER, SELFPAY ==
--- OUTSIDE RECORDS SUMMARY | 2024-04-15 08:55 | XMS_ITS | Clinical Summary ---
Author Organization [employer] Address [address] [facility] 7t [place] [address] Care Team Providers Care Cell Coverer Name Role Phone Martha Joyner MD Primary Care Provider [phone] Allergies No known active allergies Medications * This document contains information received from the source organization and may not represent a complete record from that organization. albuterol 108 (90 Base) MCG/ACT inhaler Inhale 2 puffs every 4 (four) hours if needed. 2 Active glucose blood (FREESTYLE LITE) test strip 1 each at bed time. 2 Active lidocaine (Lidoderm) 5 % patch Place 1 patch on the skin at bed time. 2 Active Continuous Blood Gluc Sensor (FreeStyle Jeannette 3 Sensor) [facility] USE DIRECTED TO TEST BLOOD SUGAR CHANGE EVERY 14 DAYS 3 Active methocarbamol (Robaxin) 750 MG tabletIndications :Low back pain at multiple sites Take 1 tablet (750 mg) by mouth 4 times daily for 10 days. 40 tablet 4 Active valsartan (Diovan) 320 MG tabletIndications :Primary hypertension TAKE 1 TABLET BY MOUTH EVERY DAY IN THE MORNING 90 tablet 1 4 Active metFORMIN XR (Glucophage-XR) 500 MG 24 hr tabletIndications :Type 2 diabetes mellitus with hyperglycemia, without long-term current use of insulin (CMS/HCC) TAKE 2 TABLETS BY MOUTH TWICE DAILY WITH FOOD DO NOT BREAK, CRUSH, DISSOLVE OR CHEW 360 tablet 1 4 Active Mounjaro 10 MG/0.5ML solution auto-injector 4 Active Ketotifen Fumarate 0.035 % solutionIndicatio ns:Itch of eye Administer 1 drop into affected eye(s) 2 times daily. 10 mL 3 4 Active acetic acid-hydrocortiso ne (Vosol-HC) otic solutionIndicatio ns:Ear itch Administer 4 drops into each ear 2 times daily. 10 mL 3 4 Active allopurinol (Zyloprim) 300 MG tabletIndications :Gout, unspecified cause, unspecified chronicity, unspecified site TAKE 1 TABLET BY MOUTH EVERY DAY AT BEDTIME 90 tablet 1 4 Active carvedilol (Coreg) 6.25 MG tablet TAKE 1 TABLET BY MOUTH TWICE DAILY IN THE MORNING AND IN THE EVENING WITH MEALS 60 tablet 5 5 Active Active Problems Problem Noted Date Diagnosed Date Itch of eye 01/08/2024 PTSD (post-traumatic stress disorder) 09/12/2023 Fractured dental druze with loss of materi al 07/31/2023 JERRY [...] Glu = 109 Patient is managed by [facility]. His DM2 is trending in the [...] levels. Continue taking mounjaro as perscribed by assembler skylights. Will montior and lower metformin as needed. [...] low availability in pharmacies will cont with trulicity for now and readdress in the future. He also brought up use of SGLT-2, given information and discuss introduction in the future, f/up in 4-6 weeks. Assessment & Plan (02/14/2022 5:11 PM EST): Patient with elevated a1c of 10.7% and glucoe of [facility]. No measuring his glucose at home, [...] organization. Date Type Department Care Team Description 03/27/2024 8:00 AM EST Office Visit [facility] [address] [place] [address] Roxi Reagan, TITUS 03/16/2024 Telephone [facility] [address] [place] [address] Martha Joyner MD Med Refill 03/16/2024 Refill [facility] [address] [place] [address] Martha Joyner MD 03/06/2024 9:00 AM EST Office Visit [facility] [address] [place] [address] Roxi Reagan DMD 02/25/2024 8:00 AM EST Office Visit [facility] [address] [place] [address] Roxi Reagan, TITUS 02/17/2024 Refill [facility] [address] [place] [address] Martha Joyner MD Gout, unspecified cause, unspecified chronicity, unspecified site 02/13/2024 11:30 AM EST Office Visit [facility] [address] [place] [address] Roxi Reagan DMD 02/13/2024 Orders Only GENERIC EXTERNAL DATA DEPARTMENT Provider, Generic External Data 01/20/2024 3:00 PM EST Office Visit [facility] [address] [place] [address] Harvinder Newberry Dental calculus (Primary Dx) from Last 3 Months Immunizations Name Administration [...] t he electric, gas, oil or water [employer] threatened to shut off services in your [...] Sign Reading Time Taken Comments Blood Pressure 140/90 03/27/2024 8:10 AM EST Pulse 60 01/20/2024 4:04 PM [...] Care Team (Late st Contact Info) Description 04/22/2024 8:00 AM EST Office Visit [facility] [address] [place] [address] Roxi Reagan, DMD [address] [place] [address] Health Maintenance Due Date Last Done Comments [...] 5 Years) and At-Risk Patients (6 to 49) Years) (1 of 2 - PCV) 01/07/2025 Postponed from 06/13/1998 (Patient Refused) Dental X-Ray: [facility] 01/20/2025 01/20/2024, 10/02 Tobacco Screening 03/27/2025 03/27/2024 Eye Exam 11/18/2025 11/19/2023 Dental X-Ray: Full [...] TO DETAILED AND EXTENSIVE TREATMENT PLANNING Routine 03/27/2024 8:00 AM EST 3 MO RESTORATIVE - RESIN-BASED COMPOSITE RESTORATIONS - DIRECT - RESIN-BASED COMPOSITE - TWO SURFACES, POSTERIOR Routine 03/27/2024 8:00 AM EST ADJUNCTIVE GENERAL SERVICES - [...] EST ALBUMIN Routine 02/13/2024 3:46 PM EST US SCROTUM Routine 02/13/2024 3:21 PM EST ADJUNCTIVE GENERAL SERVICES - PROFESSIONAL [...] AM EST 3 MO COMPOSITE FILLING Routine 4 12:00 AM EST 2 O COMPOSITE FILLING [...] ADULT Routine 01/20/2024 3 :00 PM EST POCT GLYCATED HEMOGLOBIN, TOTAL Routine 08/05/2023 [...] Binding Globulin 57(A) 10 - 50 nmol/L [facility] Comment:THIS TEST WAS PERFOR MED AT:[employer] [place] [id number] FISHMAN MD 02/13/2024 3:46 PM EST 02/13/2024 3:46 PM EST us Generic External Data Provider LAB BLOOD ORDERAB LES Final Result [facility] [address] [place] [phone] * (ABNORMAL) Estradiol (02/13/2024 3:46 PM EST) Estradiol Ultra Sensitive 86(A) < OR = 29 pg/mL [facility] Comment:This test was develo ped and its analytical performancecharacteristics have been determined by [employer].It has not been cleared or approved by FDA. This assay hasbeen validated pursuant to the CLIA regulations and is usedfor clinical purposes.THIS TEST WAS PERFORMED AT:[employer] [address] [place] [address]YLCTBJOSÉ LUIS MOCTEZUMA MD,PHD,FRANK 02/13/2024 3:46 PM EST 02/13/2024 3:46 PM EST us Generic External Data Provider LAB BLOOD ORDERAB LES Final Result Performing Organization Address [facility] Co de Phone Number [facility] [address] [place] [phone] * Testosterone, Total, males (Adult), [place] (02/13/2024 3:46 PM EST) Testosterone, Total 734 250 - 1100 ng/dL [facility] Comment:For additional infor mation, please refer tohttp://education.[employer]/faq/LaxdpNpccubchgbblTVFMGFZSF706(This link is being provided for informational/educational purposes only.)This test was developed and its analytical performancecharacteristics have been determined by [employer] [place], [place]. It hasnot been cleared or approved by the U.S. Food and DrugAdministration. This assay has been validated pursuantto the CLIA regulations and is used for clinicalpurposes.THIS TEST WAS PERFORMED AT:[employer] [id number] [place] [address]DPZQIQQLAURY ELLIS MD,PHD 02/13/2024 3:46 PM EST 02/13/2024 3:46 PM EST us Generic External Data Provider LAB BLOOD ORDERAB LES Final Result Performing Organization Address City/[facility]/ZIP Co de Phone Number [facility] [address] [place] [address] [phone] * (ABNORMAL) LH (02/13/2024 3:46 PM EST) Pathologist [facility] Lutenizing Hormone 12.1(A) 1.5 - 9.3 mIU/mL [facility] Comment:THIS TEST WAS PERFOR MED AT:[employer] [place] [id number] FISHMAN MD 02/13/2024 3:46 PM EST 02/13/2024 3:46 PM EST Generic External Data Provider LAB BLOOD ORDERAB LES Final Result Performing Organization Address [facility]/ZIP Co de Phone Number [facility] [address] [place] [address] [phone] * Albumin (02/13/2024 3:46 PM EST) [facility] Albumin Level 3.6 3.5 - 5.0 g/dL [facility] 02/13/2024 3:46 PM EST 02/13/2024 3:46 PM EST Generic External Data Provider LAB BLOOD ORDERAB LES Final Result Performing Organization Address [facility] Co de Phone Number [facility] [address] [place] [address] [phone] * US Scrotum (02/13/2024 3:21 PM EST) Anatomical Region Laterality Modality Body Ultrasound 02/13/2024 3:21 PM EST Narrative 03/31/2024 11:28 AM EST ? [facility] ?[address] ?[place] [address] ? Ultrasound Report ? Signed ? Patient: Fischer Anam,Edd ?MR#: [id number] ?? [id number] ? : 1980 ?Acct:[id number] ? Age/Sex: 43 / M ?ADM Date: 12/12/24 ? Loc: HO.LAB ? Attending Dr: Filemon Dennis MD ? Ordering Physician: Filemon Dennis MD ?? Date of Service: 02/13/24 ?? Procedure(s): US scrotum ?? Accession Number(s): [id number] ? cc: Filemon Dennis MD; Martha Joyner MD ? EXAMINATION: US SCROTUM ? 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 ? COMPARISONS: Comparison is made with the prior examination dated ?? 09/13/2023. ? FINDINGS: ??Real-time grayscale ultrasound imaging of the scrotum was ?? performed. ? RIGHT TESTICLE: ??The right testis measures 4.1 x 2.5 x 3.6 cm and ?? demonstrates normal homogeneous echotexture. ??No masses are seen. ??The ?? right testis demonstrates normal arterial and venous color Doppler and ?? spectral waveforms. ? RIGHT EPIDIDYMIS: Normal in size, shape, and vascularity. There is a 3 ?? mm epididymal head cyst. ? LEFT TESTICLE: ??The left testis measures 3.0 x 2.0 x 2.4 cm and ?? demonstrates normal homogeneous echotexture. ??No masses are seen. ??The ?? left testis demonstrates normal arterial and venous color Doppler and ?? spectral waveforms. ? LEFT ??EPIDIDYMIS: Normal in size, shape, and vascularity. ? VARICOCELE: There are small bilateral varicoceles. ? HYDROCELE: There may be a small septated right hydrocele. ? OTHER COMMENTS: None. ? US/US scrotum ?? IMPRESSION: ??Small bilateral varicoceles. ? Electronically signed by: ??Ady Spear MD ??03/31/2024 11:26 AM EST ?? RP ? Dictated By: ?Ady Spear MD ? Signed By: ?<Electronically signed by Ady Spear MD in OV> ?/28/25 1126 ? DD/DT: 1212/24 1521 ? TD/TT: 02/12/24 1532 ? Pens [employer] Penc[employer] Repairer: ? 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 COMPARISONS: Comparison is made with the prior examination dated 09/13/2023. FINDINGS: Real-time grayscale ultrasound imaging of the scrotum was performed. RIGHT TESTICLE: The right testis measures 4.1 x 2.5 x 3.6 cm and demonstrates normal homogeneous echotexture. No masses are seen. The right testis demonstrates normal arterial and venous color Doppler and spectral waveforms. RIGHT EPIDIDYMIS: Normal in size, shape, and vascularity. There is a 3 mm epididymal head cyst. LEFT TESTICLE: The left testis measures 3.0 x 2.0 x 2.4 cm and demonstrates normal homogeneous echotexture. No masses are seen. The left testis demonstrates normal arterial and venous color Doppler and spectral waveforms. LEFT EPIDIDYMIS: Normal in size, shape, and vascularity. VARICOCELE: There are small bilateral varicoceles. HYDROCELE: There may be a small septated right hydrocele. OTHER COMMENTS: None. US/US scrotum IMPRESSION: Small bilateral varicoceles. Electronically signed by: Ady Spear MD 03/31/2024 11:26 AM EST Dictated By: Ady Spear MD Signed By: <Electronically signed by Ady Spear MD in OV> 03/31/24 1126 DD/ 1521 TD/TT: 02/13/24 1532 [employer] Repairer: [facility] External Provider IMG US PROCEDURES Final Result * (ABNORMAL) POCT HGB A1C (08/05/2023 4:25 PM EDT) Pathologist [facility] Hemoglobin A1C 6.2(A) 4.0 - 6.0 % QC Media Lot # [id number] Lot# Expiration Date ,[id number] Blood 08/05/2023 4:25 PM EDT Result [facility] Martha Joyner MD POINT OF CARE TEST ENTER/EDIT ORDERABLES Final Result * (ABNORMAL) Albumin, Random Urine W/Creatinine (11/09/2022 9:05 AM EDT) Pathologist [facility] Creatinine, Urine 97.12 mg/dL [facility] Microalbumin Urine 900.0 mg/L [facility] Microalbum Creatinine Ratio Ur 926.6(H) <30 ug/mg cr [facility] Comment:Albumin/Creatinine R atio Reference Ranges: Normal: < 30 ug/mg creatinine Microalbuminuria: 30 - 300 ug/mg creatinineClinical Albuminuria: > 300 ug/mg creatinine 11/09/2022 9:05 AM EDT 11/09/2022 2:30 PM EDT Result [facility] Martha Joyner MD LAB URINE ORDERABLES Final Re sult [facility] [address] [place] [phone] * Hepatitis C Ab (11/09/2022 9:00 AM EDT) Pathologist [facility] Hepatitis C Antibody Nonreactive Nonreactive [facility] Comment:Antibodies to HCV no t detected; does not exclude early acuteHCV infection. Blood 11/09/2022 9:00 AM EDT 11/09/2022 2:35 PM EDT us Martha Joyner MD LAB BLOOD ORDERABLES Final Re sult [facility] [address] [place] [phone] * (ABNORMAL) Lipid Panel, Standard (11/09/2022 9:00 AM EDT) Triglycerides 140 <150 mg/dL [facility] Comment:Desirable Triglyceri de: less than 150 mg/dLBorderline High Triglyceride 150-199 mg/dLHigh Triglyceride: 200-499 mg/dLVery High Triglyceride: greater than or equal to 5OO mg/dL Cholesterol 137 <200 mg/dL [facility] Comment:Desirable Cholestero l: less than 200 mg/dLBorderline High Cholesterol: 200-239 mg/dLHigh Cholesterol: greater than 239 mg/dL LDL Cholesterol Calculated 77 <100 mg/dL [facility] Comment:Desirable LDL: less than 100 mg/dLNear Optimal/Above Optimal LDL: 110- 129 mg/dLBorderline High LDL: 130-159 mg/dLHigh LDL: 160-189 mg/dLVery High LDL: greater than or equal to 190 mg/dL HDL Cholesterol 32(L) >40 mg/dL [facility] Comment:Desirable HDL: great er than 40 mg/dL Note: This HDL assay may give artificially low results in patients with liver disease. Blood Venous blood specimen / Unknown 11/09/2022 9:00 AM EDT 11/09/2022 2:45 PM EDT us Martha Joyner MD LAB BLOOD ORDERABLES Final Re sult [facility] [address] [place] [phone] * HIV 1/2 ANTIGEN/ANTIBODY,FOURTH GENERATION W/RFL [...] ? For additional information please refer to http://education.Tellja/faq/UWF550 (This link is being provided for informational/ educational purposes only.) ? The performance of this assay has not been clinically validated in patients less than 2 years old. ?? 05/26/2021 9:29 AM EDT us Martha Joyner MD LAB BLOOD ORDERABLES Final Re sult [facility] [address] from Last 3 Months or Most Recently Relevant to Health Maintenance Insurance [facility] PARTIAL (MEDICAID) [address] [place] Care Teams Cell Coverer Relationship Specialty Start Date End Date Martha Joyner MD [address] [place] [address] PCP - General Family Medicine 02/22/21 [facility] Nurse Practitioner Endocrinology 01/08/24
--- OUTSIDE RECORDS SUMMARY | 2024-04-15 08:55 | XMS_ITS | Encounter Summary ---
Author Organization [employer] Address [address] [place] [address] 7[address] [place] [address] Care Team Providers Care Water Softener Installer Name Role Phone Martha Joyner MD Primary Care Provider [phone] Reason for Visit * Reason Comments Med Refill Encounter Details Date Type Department Care Team ([facility] Contact Info) Description 10/15/2022 Refill [facility] [address] [place] [address] Martha Joyner MD [address] [place] [address] Type 2 diabetes mellitus with hyperglycemia, without long-term current use of insulin ([facility]) Social History Tobacco Use Types Packs/Day [...] Department Care Team (Late Contact Info) Description 04/22/2024 8:00 AM EST Office Visit [facility] [address] [place] [address] Roxi Reagan DMD [address] [place] [address] documented as of this encounter Visit Diagnoses Diagnosis Type 2 diabetes mellitus with hyperglycemia, without long-term current use of insulin ([facility]) documented in this encounter Additional Health Concerns Assessment Noted Time PHQ-9 Depression Total Score: 1 02/15/20 22 4:00 PM EST documented as of this encounter Care Teams Water Softener Installer Relationship Specialty Start Date End Date Martha Joyner MD [address] [place] [phone] PCP - General Family Medicine 02/22/21 [facility] Nurse Practitioner Endocrinology 01/08/24 documented as of this encounter
--- OUTSIDE RECORDS SUMMARY | 2024-04-15 08:55 | XMS_ITS | Encounter Summary ---
Author Organization [employer] Address [address] [facility] 7t [place] [address] Care Team Providers Care Bill Clerk Name Role Phone Martha Joyner MD Primary Care Provider [phone] Reason for Visit * Reason Comments Filling Encounter Details Date Type Department Care Team ([facility] Contact Info) Description 03/27/2024 8:00 AM EST Office Visit [facility] CHC ADULT DENTAL [address] [place], [place] [phone] Roxi Reagan, DMD [address] [place], [place] [phone] Social History Tobacco Use Types Packs/Day Years [...] Pressure 140/90 03/27/2024 8:10 AM EST Pulse - - Temperature - - Respiratory Rate - - Oxygen Saturation - - Inhaled Oxygen Concentration - - Weight - - Height - - Body Mass Index - - documented in this encounter Progress Notes * Roxi Reagan DMD - 03/27/2024 8:00 AM EST Dental procedures in this visit D2392 - RESTORATIVE - RESIN-BASED COMPOSITE RESTORATIONS - DIRECT - RESIN-BASED COMPOSITE - TWO SURFACES, POSTERIOR 3 MO (Completed) Service provider: Roxi Reagan DMD Billing provider: Valerie Le DDS [id number] - ADJUNCTIVE GENERAL SERVICES - PROFESSIONAL VISITS - CASE PRESENTATION, SUBSEQUENT TO DETAILED AND EXTENSIVE TREATMENT PLANNING (Completed) Service provider: Roxi Reagan DMD Billing provider: Valerie Le DDS Patient ID: Edd Mendieta is a 43 y.o. male. Time Out: Date: 03/27/2024 Location: [facility] Tooth: #3 Procedure: Mu-Ism Verified the above with patient, assistant shift supervisor, and provider. Confirmed via patient's chart, intraorally and by radiographs. Pipe Finisher: not applicable Composite episcopal done on #[address] Roxi Reagan DMD Risk, benefits, and alternatives discussed with the patient. CONSENT FORM INITIALED & SIGNED BY THE PATIENT AND COUNTERSIGNED BY Dr. Roxi Reagan DMD Medical history: Reviewed in EHR Vitals: Blood pressure 140/90. Allergies: Reviewed in EHR Medications: Reviewed in EHR ASA II - LA: 20% topical benzocaine; local infiltration with 1 carpule 2% lidocaine 1:100,000 epinephrine - Existing episcopal and recurrent decay removed - Matrix band and wedge used as needed - Desensitizer: GLUMA - Etching done using 37% phosphoric acid and rinsed. - subscription agent applied and light cured. - Composite episcopal done using Filtek body and flowable composite, shade A3. - Anatomy and margins adjusted. - Proximal contact confirmed with floss. - Occlusion checked with articulating paper. - Necessary reductions made. - Mu-Ism smoothed and polished. - Post op instructions given. - Patient made aware possible post op sensitivity. All patient questions answered. Patient comfortable upon dismissal. NV: Restorative Provider: Dr. Roxi Reagan DMD Coding Manager: Ping Anglin Supervising Dentist: Dr. Valerie Le DDS * Valerie Le DDS - 03/27/2024 8:00 AM EST I have reviewed the documentation and dental procedures completed by the rendering provider, Roxi Reagan DMD, and approve their chart entries for this visit. DANDRE Johns DDS documented in this encounter Plan of Treatment Upcoming Encounters Date Type Department Care Team (Late st Contact Info) Description 04/22/2024 8:00 AM EST Office Visit [facility] ADULT DENTAL [address] [place] [address] Roxi Reagan DMD [address] [place] [address] documented as of this encounter Procedures Procedure Name Priority Date/Time Associated Diagnosis Comments 3 MO RESTORATIVE - RESIN-BASED COMPOSITE RESTORATIONS - DIRECT - RESIN-BASED COMPOSITE - TWO SURFACES, POSTERIOR Routine 03/27/2024 8:00 AM EST ADJUNCTIVE GENERAL SERVICES - PROFESSIONAL VISITS - CASE PRESENTATION, SUBSEQUENT TO DETAILED AND EXTENSIVE TREATMENT PLANNING Routine 03/27/2024 8:00 AM EST documented in this encounter Visit Diagnoses Not on filedocumented in this encounter Additional Health Concerns Assessment Noted Time PHQ-9 Depression Total Score: 19 07/2 024 3:19 PM EDT documented as of this encounter Care Teams Bill Clerk Relationship Specialty Start Date End Date Joyner, Martha, MD [address] [place] [address] PCP - General Family Medicine 02/22/21 [facility] Nurse Practitioner Endocrinology 01/08/24 documented as of this encounter
--- OUTSIDE RECORDS SUMMARY | 2024-04-15 08:55 | XMS_ITS | Encounter Summary ---
Author Organization [employer] Address [address] [facility] 7t [place] [address] Care Team Providers Care Facs Teacher Name Role Phone Martha Joyner MD Primary Care Provider [phone] Reason for Visit * Reason Onset Date Comments Med Refill 03/16/2024 Encounter Details Date Type Department Care Team ([facility] st Contact Info) Description 03/16/2024 Telephone [facility] MEDICINE [address] [place] [address] Martha Joyner MD [address] [place] [address] Med Refill Social History Tobacco Use Types [...] 6.25 MG tablet To be sent to: [facility] documented in this encounter Plan of Treatment Upcoming Encounters Date Type Department Care Team (Late st Contact Info) Description 04/22/2024 8:00 AM EST Office Visit [facility] CHC ADULT DENTAL [address] [place] [address] Roxi Reagan, DMD [address] [place] [address] documented as of this encounter Visit Diagnoses Not on filedocumented in this encounter Additional Health Concerns Assessment Noted Time PHQ-9 Depression Total Score: 19 024 3:19 PM EDT documented as of this encounter Care Teams Facs Teacher Relationship Specialty Start Date End Date Martha Joyner MD [address] [place] [address] PCP - General Family Medicine 02/22/21 [facility] Nurse Practitioner Endocrinology 01/08/24 documented as of this encounter
--- OUTSIDE RECORDS SUMMARY | 2024-04-15 08:55 | XMS_ITS | Encounter Summary ---
Author Organization [facility] Address [address] [place] [address] Phone Care Team Providers Care Hand Stitcher Name Role Phone Martha Joyner MD Primary Care Provider [phone] Encounter Details Date Type Department Care Team (Late st Contact Info) Description 06/29/2021 Documentation Only [facility], [address] [place] [address] Martha Joyner MD [address] [place] [address] Social History Tobacco Use Types Packs/Day Years [...] on filedocumented in this encounter Care Teams Hand Stitcher Relationship Specialty Start Date End Date Martha Joyner MD PCP - General Family Medicine 06/29/21 documented as of this encounter
--- OUTSIDE RECORDS SUMMARY | 2024-04-15 08:55 | XMS_ITS | Encounter Summary ---
Author Organization [employer] Address [address] [facility] 7t [place] [address] Care Team Providers Care Forensic Pathologist Name Role Phone Martha Joyner MD Primary Care Provider [phone] Reason for Visit * Reason Comments Med Refill Encounter Details Date Type Department Care Team ([facility] Contact Info) Description 01/03/2023 Refill [facility] CHC MED & PEDS [address] [place], [place] [phone] Tereza Wagner MD [address] [place] [address] Social History Tobacco Use Types Packs/Day Years [...] 04/22/2024 8:00 AM EST Office Visit [facility] CHC ADULT DENTAL [address] [place], [place] [phone] Roxi Reagan, TITUS [address] [place] [address] documented as of this encounter Visit Diagnoses Not on filedocumented in this encounter Additional Health Concerns Assessment Noted Time PHQ-9 Depression Total Score: 1 02/15/20 22 4:00 PM EST documented as of this encounter Care Teams Forensic Pathologist Relationship Specialty Start Date End Date Martha Joyner MD [address] [place] [address] PCP - General Family Medicine 02/22/21 [facility] Nurse Practitioner Endocrinology 01/08/24 documented as of this encounter
--- OUTSIDE RECORDS SUMMARY | 2024-04-15 08:55 | XMS_ITS | Encounter Summary ---
Author Organization [employer] Address [address] [facility] 7t [place] [address] Care Team Providers Care Chili Maker Name Role Phone Martha Joyner MD Primary Care Provider [phone] Reason for Visit * Reason Comments Med Refill Encounter Details Date Type Department Care Team ([facility] st Contact Info) Description 03/16/2024 Refill [facility] CHC MED & PEDS [address] [place], [place] [phone] Martha Joyner MD [address] [place] [address] Social History Tobacco Use Types Packs/Day Years [...] Description 04/22/2024 8:00 AM EST Office Visit [facility] ADULT DENTAL [address] [place] [address] Roxi Reagan, DMD [address] [place] [address] documented as of this encounter Visit Diagnoses Not on filedocumented in this encounter Additional Health Concerns Assessment Noted Time PHQ-9 Depression Total Score: 19 024 3:19 PM EDT documented as of this encounter Care Teams Chili Maker Relationship Specialty Start Date End Date Martha Joyner MD [address] [place] [address] PCP - General Family Medicine 02/22/21 [facility] Nurse Practitioner Endocrinology 01/08/24 documented as of this encounter
--- OUTSIDE RECORDS SUMMARY | 2024-04-15 08:55 | XMS_ITS | Clinical Summary ---
Author Organization [facility], Address [address] [place] [address] [place] [address] Phone Care Team Providers Care Mass Communications Professor Name Role Phone Martha Joyner MD Primary Care Provider [phone] Allergies Active Allergy Reactions Criticality Noted Date [...] DAILY UNTIL FINISHED 3 Active TechLite Pen [place] 31G X 5 MM misc USE DAILY [...] Blood Gluc Sensor (FreeStyle Jeannette 3 Sensor) [facility] USE DIRECTED TO TEST BLOOD SUGAR CHANGE [...] due to type 2 diabetes mellitus 07/07/20212021 Social History Tobacco Use Types Packs/Day Years [...] Diabetes: Hemoglobin A1C 11/05/2023 024, 10/01/2022, 05/14/2022 Insurance [facility] ([id number]) Care Teams Mass Communications Professor Relationship Specialty Start Date End Date Martha Joyner MD PCP - General Family Medicine 06/29/21
--- OUTSIDE RECORDS SUMMARY | 2024-04-15 08:55 | XMS_ITS | Encounter Summary ---
Author Organization [employer] Address [address] [facility] 7t [place] [address] Care Team Providers Care Rn Psychiatric Name Role Phone Martha Joyner MD Primary Care Provider [phone] Reason for Visit * Reason Comments Med Refill Encounter Details Date Type Department Care Team ([facility] st Contact Info) Description 07/21/2023 Refill [facility] CHC MED & PEDS [address] [place], [place] [phone] Martha Joyner MD [address] [place] [address] Type 2 diabetes mellitus with hyperglycemia, without long-term current use of insulin ([facility]) Social History Tobacco Use Types Packs/Day [...] Description 04/22/2024 8:00 AM EST Office Visit [facility] ADULT DENTAL [address] [place] [address] Roxi Reagan, DMD 505 [place] [address] documented as of this encounter Visit Diagnoses Diagnosis Type 2 diabetes mellitus with hyperglycemia, without long-term current use of insulin ([facility]) documented in this encounter Additional Health Concerns Assessment Noted Time PHQ-9 Depression Total Score: 17 024 5:09 PM EDT documented as of this encounter Care Teams Rn Psychiatric Relationship Specialty Start Date End Date Martha Joyner MD [address] [place] [address] PCP - General Family Medicine 02/22/21 Endo [facility] Nurse Practitioner Endocrinology 01/08/24 documented as of this encounter
--- OUTSIDE RECORDS SUMMARY | 2024-04-15 08:55 | XMS_ITS | Encounter Summary ---
Author Organization [employer] Address [address] [facility] 7t [place] [address] Care Team Providers Care Complementary Health Therapists Name Role Phone Martha Joyner MD Primary Care Provider [phone] Reason for Visit * Reason Onset Date Comments Nurse Triage 11/20/2023 Encounter Details Date Type Department Care Team ([facility] st Contact Info) Description 11/20/2023 Telephone [facility] MEDICINE [address] [place] [address] Martha Joyner MD [address] [place] [address] Nurse Triage Social History Tobacco Use Types [...] didn't answer. Left voice message to call [facility] triage line at [phone] [phone]. * Telephone Encounter - Rangel Razo [...] Description 04/22/2024 8:00 AM EST Office Visit [facility] CHC ADULT DENTAL [address] [place] [address] Roxi Reagan, TITUS [address] [place] [address] documented as of this encounter Visit Diagnoses Not on filedocumented in this encounter Additional Health Concerns Assessment Noted Time PHQ-9 Depression Total Score: 19 024 3:19 PM EDT documented as of this encounter Care Teams Complementary Health Therapists Relationship Specialty Start Date End Date Martha Joyner MD [address] [place] [address] PCP - General Family Medicine 02/22/21 [facility] Nurse Practitioner Endocrinology 01/08/24 documented as of this encounter
--- OUTSIDE RECORDS SUMMARY | 2024-04-15 08:55 | XMS_ITS | Encounter Summary ---
Author Organization [employer] Address [address] [facility] 7t [place] [address] Care Team Providers Care Email Engineer Name Role Phone Martha Joyner MD Primary Care Provider [phone] Reason for Visit * Reason Comments Med Refill Encounter Details Date Type Department Care Team ([facility] Contact Info) Description 03/11/2023 Telephone [facility] CHC MED & PEDS [address] [place], [place] [phone] Martha Joyner MD 505 [place] [address] Med Refill Social History Tobacco Use Types [...] note were not included. MD Deya Bryson [facility] Med & Peds Nurses Caller: Unspecified (Yesterday, 1:10 PM) Hi! Please could you follow up on the urology referral I placed, and if a appointment already givencould it be scheduled as soon as possible? TC placed to [facility] urology @ [phone] to see if patient has been seen [...] chart. TC placed to [facility] @ [phone] to request U/S report be faxed to [facility] @ [phone]. They faxed it. TC placed to patient to encourage him to make a sooner appointment with urology or at least keep his upcoming appointment. No answer. LM to call us back. Routing to Dr. Doran so he is aware and back to [facility] nurses so they can try again. Patient has f/u with PCP scheduled for 04/02/23. Notes added to appointment for that day. documented in this encounter Plan of Treatment Upcoming Encounters Date Type Department Care Team (Late st Contact Info) Description 04/22/2024 8:00 AM EST Office Visit [facility] CHC ADULT DENTAL [address] [place] [address] Roxi Reagan, TITUS [address] [place] [address] documented as of this encounter Visit Diagnoses Not on filedocumented in this encounter Additional Health Concerns Assessment Noted Time PHQ-9 Depression Total Score: 1 02/15/20 22 4:00 PM EST documented as of this encounter Care Teams Email Engineer Relationship Specialty Start Date End Date Martha Joyner MD [address] [place] [address] PCP - General Family Medicine 02/22/21 [facility] Nurse Practitioner Endocrinology 01/08/24 documented as of this encounter
--- OUTSIDE RECORDS SUMMARY | 2024-04-15 08:56 | XMS_ITS | Encounter Summary ---
Author Organization [facility] Address [address] [place] [address] Phone Care Team Providers Care Film Color Tester Name Role Phone Martha Joyner MD Primary Care Provider [phone] Encounter Details Date Type Department Care Team (Late st Contact Info) Description 06/29/2021 Documentation Only [facility], [address] [place] [address] Martha Joyner MD [address] [place] [address] Social History Tobacco Use Types Packs/Day Years [...] on filedocumented in this encounter Care Teams Film Color Tester Relationship Specialty Start Date End Date Martha Joyner MD PCP - General Family Medicine 06/29/21 documented as of this encounter
--- OUTSIDE RECORDS SUMMARY | 2024-04-15 08:56 | XMS_ITS | Encounter Summary ---
Author Organization [employer] Address [address] [facility] 7t [place] [address] Care Team Providers Care Gel Coat Sprayer Name Role Phone Martha Joyner MD Primary Care Provider [phone] Encounter Details Date Type Department Care Team (Late st Contact Info) Description 03/13/2023 Telephone [facility] [address] [place] [address] Martha Joyner MD [address] [place], [place] [phone] Social History Tobacco Use Types Packs/Day Years [...] indicated. Report faxed at this time to [phone] documented in this encounter Plan of Treatment Upcoming Encounters Date Type Department Care Team (Late st Contact Info) Description 04/22/2024 8:00 AM EST Office Visit [facility] ADULT DENTAL 505 [place] [address] Roxi Reagan, DMD [address] [place] [address] documented as of this encounter Visit Diagnoses Not on filedocumented in this encounter Additional Health Concerns Assessment Noted Time PHQ-9 Depression Total Score: 1 02/15/20 22 4:00 PM EST documented as of this encounter Care Teams Gel Coat Sprayer Relationship Specialty Start Date End Date Martha Joyner MD [address] [place] [address] PCP - General Family Medicine 02/22/21 [facility] Nurse Practitioner Endocrinology 01/08/24 documented as of this encounter
--- OUTSIDE RECORDS SUMMARY | 2024-04-15 08:56 | XMS_ITS | Encounter Summary ---
Author Organization [employer] Address [address] [facility] 7t [place] [address] Care Team Providers Care Rug Washer Name Role Phone Martha Joyner MD Primary Care Provider [phone] Reason for Visit * Reason Comments Med Refill Encounter Details Date Type Department Care Team ([facility] st Contact Info) Description 05/30/2023 Refill [facility] CHC MED & PEDS 505 [place], [place] [phone] Martha Joyner MD [address] [place] [address] Primary hypertension Social History Tobacco Use Types [...] Description 04/22/2024 8:00 AM EST Office Visit [facility] CHC ADULT DENTAL 505 [place], [place] [phone] Roxi Reagan, TITUS [address] [place] [address] documented as of this encounter Visit Diagnoses Diagnosis Primary hypertension Unspecified essential hypertension documented in this encounter Additional Health Concerns Assessment Noted Time PHQ-9 Depression Total Score: 1 02/15/20 22 4:00 PM EST documented as of this encounter Care Teams Rug Washer Relationship Specialty Start Date End Date Martha Joyner MD [address] [place] [address] PCP - General Family Medicine 02/22/21 [facility] Nurse Practitioner Endocrinology 01/08/24 documented as of this encounter
--- OUTSIDE RECORDS SUMMARY | 2024-04-15 08:56 | XMS_ITS | Encounter Summary ---
Author Organization [facility] Address [address] [place] [address] Phone Care Team Providers Care Top Lift Nailer Name Role Phone Martha Joyner MD Primary Care Provider [phone] Encounter Details Date Type Department Care Team (Late st Contact Info) Description 06/29/2021 Documentation Only [facility], [address] [place] [address] Martha Joyner MD [address] [place] [address] Social History Tobacco Use Types Packs/Day Years [...] on filedocumented in this encounter Care Teams Top Lift Nailer Relationship Specialty Start Date End Date Martha Joyner MD PCP - General Family Medicine 06/29/21 documented as of this encounter
--- OUTSIDE RECORDS SUMMARY | 2024-04-15 08:56 | XMS_ITS | Encounter Summary ---
Author Organization [employer] Address [address] [facility] 7t [place] [address] Care Team Providers Care Cement Mason Apprentice Name Role Phone Martha Joyner MD Primary Care Provider [phone] Encounter Details Date Type Department Care Team ([facility] st Contact Info) Description 05/01/2023 Telephone [facility] CHC MED & PEDS [address] [place], [place] [phone] Martha Joyner MD [address] [place], [place] [phone] Social History Tobacco Use Types Packs/Day Years [...] Description 04/22/2024 8:00 AM EST Office Visit [facility] CHC ADULT DENTAL [address] [place], [place] [phone] Roxi Reagan, DMD 505 [place] [address] documented as of this encounter Visit Diagnoses Not on filedocumented in this encounter Additional Health Concerns Assessment Noted Time PHQ-9 Depression Total Score: 1 02/15/20 22 4:00 PM EST documented as of this encounter Care Teams Cement Mason Apprentice Relationship Specialty Start Date End Date Martha Joyner MD [address] [place] [address] PCP - General Family Medicine 02/22/21 [facility] Nurse Practitioner Endocrinology 01/08/24 documented as of this encounter
--- OUTSIDE RECORDS SUMMARY | 2024-04-15 08:56 | XMS_ITS | Encounter Summary ---
Author Organization [employer] Address [address] [place] [address] 7t [place] [address] Care Team Providers Care Liquor Clerk Name Role Phone Martha Joyner MD Primary Care Provider [phone] Encounter Details Date Type Department Care Team (Late Contact Info) Description 02/15/2022 Orders Only [facility] [address] [place] [address] Martha Joyner MD [address] [place] [address] Type 2 diabetes mellitus with hyperglycemia, without long-term current use of insulin ([facility]) (Primary Dx) Social History Tobacco Use Types [...] Description 04/22/2024 8:00 AM EST Office Visit [facility] [address] [place] [address] Roxi Reagan, DMD 505 [place] [address] documented as of this encounter Procedures Procedure [...] 9:05 AM EDT) Creatinine, Urine 97.12 mg/dL [facility] Microalbumin Urine 900.0 mg/L [facility] Microalbum Creatinine Ratio Ur 926.6(H) <30 ug/mg cr [facility] Comment:Albumin/Creatinine R atio Reference Ranges: Normal: < 30 ug/mg creatinine Microalbuminuria: 30 - 300 ug/mg creatinineClinical Albuminuria: > 300 ug/mg creatinine 11/09/2022 9:05 AM EDT 11/09/2022 2:30 PM EDT Martha Joyner MD LAB URINE ORDERABLES Final Re sult Performing Organization Address [facility] Co de Phone Number [facility] [address] [place] [phone] * (ABNORMAL) Sed Rate by Modified Augustusren (11/09/2022 9:00 AM EDT) Erythrocyte Sedimentation Rate 34(H) 0 - 15 MM/HR [facility] Comment:Patients with polycy themia and many hemoglobin abnormalitiesmay have depressed sed rates whereas patients with anemiamay have elevated sed rates. 11/09/2022 9:00 AM EDT 11/09/2022 2:45 PM EDT Martha Joyner MD LAB BLOOD ORDERABLES Final Re sult Performing Organization Address [facility] Co de Phone Number [facility] [address] [place] [phone] * (ABNORMAL) Comprehensive Metabolic Panel, Fasting (11/09/2022 9:00 AM EDT) Sodium 139 135 - 145 mmol/L [facility] Potassium 4.5 3.3 - 5.1 mmol/L [facility] Chloride 106 96 - 108 mmol/L [facility] Carbon Dioxide 25 22 - 29 mmol/L [facility] Anion Gap 13 12 - 20 [facility] Urea Nitrogen (BUN) 26(H) 9 - 16 mg/dL [facility] Creatinine, Serum 1.35 0.5 - 1.4 mg/dL [facility] Estimated Glomerular Filt Rate 58 [facility] Comment:NOTE: For -Am erican individuals, multiply the result by 1.210.Chronic Kidney Disease: Estimated GFR < 60 mL/min/1.95w4Mybdpp Kidney Disease: Estimated GFR < 15 mL/min/1.73m2 Glucose Fasting 109(H) 60 - 99 mg/dL [facility] Comment:A fasting glucose fr om 100-125 mg/dl is considered impaired(pre-diabetes). Calcium 10.1 8.4 - 10.2 mg/dL [facility] Bilirubin, Total 0.4 0.0 - 1.0 mg/dL [facility] Aspartate Amino Transferase 30 5 - 37 U/L [facility] Alanine Aminotransferase 27 0 - 40 U/L [facility] Total Protein 7.5 6.5 - 8.0 g/dL [facility] Albumin Level 3.9 3.5 - 5.0 g/dL [facility] Alkaline Phosphatase 78 39 - 117 U/L [facility] 11/09/2022 9:00 AM EDT 11/09/2022 2:45 PM EDT Martha Joyner MD LAB BLOOD ORDERABLES Final Re sult Performing Organization Address [facility] Co de Phone Number [facility] [address] [place] [phone] * (ABNORMAL) Glucose, Whole Blood (07/27/2022 2:52 PM EDT) Glucose, Whole Blood 183(H) 60 - 115 mg/dL [facility] Comment:METER #: [id number] 5Testing performed in the Endocrinology Department [address] , [address], [facility]. 07/27/2022 2:52 PM EDT 07/27/2022 2:56 PM EDT [facility] External Provider LAB BLO OD ORDERABLES Final Result Performing Organization Address City/[facility]/ZIP Co de Phone Number [facility] [address] [place] [address] [phone] * Albumin, Random Urine W/Creatinine (05/18/2022 11:59 AM EDT) Creatinine, Urine 72.74 mg/dL [facility] Microalbumin Urine 747.0 mg/L [facility] Microalbum Creatinine Ratio Ur 1,026.9 ug/mg cr [facility] Comment:Albumin/Creatinine R atio Reference Ranges: Normal: < 30 ug/mg creatinine Microalbuminuria: 30 - 300 ug/mg creatinineClinical Albuminuria: > 300 ug/mg creatinine 05/18/2022 11:5 9 AM EDT 05/18/2022 1:23 PM EDT us [facility] External Provider LAB URI NE ORDERABLES Final Result [facility] [address] [place] [address] [phone] * Lipid Panel, Standard (05/18/2022 11:47 AM EDT) Triglycerides 243 mg/dL [facility] Comment:Desirable Triglyceri de: less than 150 mg/dLBorderline High Triglyceride 150-199 mg/dLHigh Triglyceride: 200-499 mg/dLVery High Triglyceride: greater than or equal to 5OO mg/dL Cholesterol 152 mg/dL [facility] Comment:Desirable Cholestero l: less than 200 mg/dLBorderline High Cholesterol: 200-239 mg/dLHigh Cholesterol: greater than 239 mg/dL LDL Cholesterol Calculated 70 mg/dl [facility] Comment:Desirable LDL: less than 100 mg/dLNear Optimal/Above Optimal LDL: 110- 129 mg/dLBorderline High LDL: 130-159 mg/dLHigh LDL: 160-189 mg/dLVery High LDL: greater than or equal to 190 mg/dL HDL Cholesterol 34 mg/dL [facility] Comment:Desirable HDL: great er than 40 mg/dL Note: This HDL assay may give artificially low results in patients with liver disease. 05/18/2022 11:4 7 AM EDT 05/18/2022 1:23 PM EDT [facility] External Provider LAB BLO OD ORDERABLES Final Result Performing Organization Address [facility] Co de Phone Number [facility] [address] [place] [address] [phone] * (ABNORMAL) Glucose, Whole Blood (05/18/2022 10:23 AM EDT) Glucose, Whole Blood 172(H) 60 - 115 mg/dL [facility] Comment:METER #: [id number] 5Testing performed in the Endocrinology Department [address] , [address], [facility]. 05/18/2022 10:2 3 AM EDT 05/18/2022 10:28 AM EDT [facility] External Provider LAB BLO OD ORDERABLES Final Result Performing Organization Address [facility] de Phone Number [facility] [address] [place] [address] [phone] documented in this encounter Visit Diagnoses Diagnosis Type 2 diabetes mellitus with hyperglycemia, without long-term current use of insulin (CMS/HCC)- Primary documented in this encounter Additional Health Concerns Assessment Noted Time PHQ-9 Depression Total Score: 1 02/15/20 22 4:00 PM EST documented as of this encounter Care Teams Liquor Clerk Relationship Specialty Start Date End Date Martha Joyner MD [address] [place] [address] PCP - General Family Medicine 02/22/21 [facility] Nurse Practitioner Endocrinology 01/08/24 documented as of this encounter
[2024-04-15 09:38] LABS: Estimated Average Glucose 126 mg/dL; Hemoglobin A1C 181.9685 umol/L; Total Hemoglobin (HGBA1C) 4296.8044 umol/L
[2024-04-15 10:00] LABS: Anion Gap 12 (12-20); Blood Urea Nitrogen 34 mg/dL (9-16); Calcium 9.1 mg/dL (8.4-10.2); Carbon Dioxide 27 mmol/L (22-29); Chloride 105 mmol/L (96-108); Cholesterol 150 mg/dL (<200); Estimated Glomerular Filt Rate 44; Glucose Random 117 mg/dL (60-115); HDL Cholesterol 33 mg/dL (>40); LDL Cholesterol Calculated 78 mg/dL (<100); Potassium 4.6 mmol/L (3.3-5.1); Sodium 139 mmol/L (135-145); Triglycerides 199 mg/dL (<150)
[2024-04-15 11:34] LABS: Microalbum/Creatinine Ratio Ur 1405.4 ug/mg cr (<30); Microalbumin Urine > 2000.0 mg/L
== END 2024-04-15 08:21 | disposition home or self-care (01) ==
LOC: HO.LAB 08:20
PROVIDERS: PCP Family Medicine; Visit Provider Physician Assistant
DX: E11.29 Type 2 diabetes mellitus with other diabetic kidney complication (principal); R80.9 Proteinuria, unspecified; E11.69 Type 2 diabetes mellitus with other specified complication; I10 Essential (primary) hypertension
CPT/HCPCS: 36415; 80048; 80061; 82043; 82570; 83036

== ENCOUNTER 2024-04-17 07:57 | Outpatient (AMB) | payer OTHER, SELFPAY ==
--- OUTSIDE RECORDS SUMMARY | 2024-04-17 07:58 | XMS_ITS | Encounter Summary ---
Author Organization [employer] Address [address] [facility] 7t [place] [address] Care Team Providers Care Etl Informatica Architect Name Role Phone Martha Joyner MD Primary Care Provider [phone] Reason for Visit * Reason Onset Date Comments Nurse Triage 11/20/2023 Encounter Details Date Type Department Care Team ([facility] st Contact Info) Description 11/20/2023 Telephone [facility] MEDICINE [address] [place] [address] Martha Joyner MD [address] [place] [address] Nurse Triage Social History Tobacco Use Types [...] didn't answer. Left voice message to call [facility] triage line at [phone]. * Telephone Encounter - Rangel Razo [...] Description 04/22/2024 8:00 AM EST Office Visit [facility] CHC ADULT DENTAL [address] [place] [address] Roxi Reagan, TITUS [address] [place] [address] documented as of this encounter Visit Diagnoses Not on filedocumented in this encounter Additional Health Concerns Assessment Noted Time PHQ-9 Depression Total Score: 19 024 3:19 PM EDT documented as of this encounter Care Teams Etl Informatica Architect Relationship Specialty Start Date End Date Martha Joyner MD [address] [place] [address] PCP - General Family Medicine 02/22/21 [facility] Nurse Practitioner Endocrinology 01/08/24 documented as of this encounter
--- OUTSIDE RECORDS SUMMARY | 2024-04-17 07:59 | XMS_ITS | Encounter Summary ---
Author Organization [employer] Address [address] [facility] 7t [place] [address] Care Team Providers Care Drying Machine Receiver Name Role Phone Martha Joyner MD Primary Care Provider [phone] Reason for Visit * Reason Comments Med Refill Encounter Details Date Type Department Care Team ([facility] Contact Info) Description 03/11/2023 Telephone [facility] CHC MED & PEDS [address] [place], [place] [phone] Martha Joyner MD 505 [place] [address] Med Refill Social History Tobacco Use Types [...] note were not included. MD Deya Bryson [facility] Med & Peds Nurses Caller: Unspecified (Yesterday, 1:10 PM) Hi! Please could you follow up on the urology referral I placed, and if a appointment already givencould it be scheduled as soon as possible? TC placed to [facility] urology @ [phone] to see if patient has been seen [...] chart. TC placed to [facility] @ [phone] to request U/S report be faxed to [facility] Urology @ [phone]. They faxed it. TC placed to patient [...] Description 04/22/2024 8:00 AM EST Office Visit [facility] CHC ADULT DENTAL [address] [place] [address] Roxi Reagan, TITUS [address] [place] [address] documented as of this encounter Visit Diagnoses Not on filedocumented in this encounter Additional Health Concerns Assessment Noted Time PHQ-9 Depression Total Score: 1 02/15/20 22 4:00 PM EST documented as of this encounter Care Teams Drying Machine Receiver Relationship Specialty Start Date End Date Martha Joyner MD [address] [place] [address] PCP - General Family Medicine 02/22/21 [facility] Nurse Practitioner Endocrinology 01/08/24 documented as of this encounter
--- OUTSIDE RECORDS SUMMARY | 2024-04-17 07:59 | XMS_ITS | Encounter Summary ---
Author Organization [email or web address] Address [address] [facility] [address] 7t [place] [address] Care Team Providers Care Oncology Technician Name Role Phone Martha Joyner MD Primary Care Provider [phone] Encounter Details Date Type Department Care Team (Late st Contact Info) Description 03/13/2023 Telephone [facility] MEDICINE [address] [place] [address] Martha Joyner MD [address] [place], [place] [address] Social History Tobacco Use Types Packs/Day Years [...] indicated. Report faxed at this time to [phone] documented in this encounter Plan of Treatment Upcoming Encounters Date Type Department Care Team (Late st Contact Info) Description 04/22/2024 8:00 AM EST Office Visit [facility] ADULT DENTAL [address] [place] [address] Roxi Reagan, DMD [address] [place] [address] documented as of this encounter Visit Diagnoses Not on filedocumented in this encounter Additional Health Concerns Assessment Noted Time PHQ-9 Depression Total Score: 1 02/15/20 22 4:00 PM EST documented as of this encounter Care Teams Oncology Technician Relationship Specialty Start Date End Date Martha Joyner MD [address] [place] [address] PCP - General Family Medicine 02/22/21 [facility] Nurse Practitioner Endocrinology 01/08/24 documented as of this encounter
--- OUTSIDE RECORDS SUMMARY | 2024-04-17 07:59 | XMS_ITS | Encounter Summary ---
Author Organization [employer] Address [address] [facility] 7t [place] [address] Care Team Providers Care Cmv Driver Name Role Phone Martha Joyner MD Primary Care Provider Encounter Details Date Type Department Care Team (Late st Contact Info) Description 04/16/2024 Telephone [facility] MEDICINE [address] [place], [place] [phone] Adeola Velásquez, CLEMENCIA [address] [place], [place] [phone] Social History Tobacco Use Types Packs/Day Years [...] encounter Miscellaneous Notes * Telephone Encounter - Adeola Velásquez RN - 04/16/2024 12:26 PM EST T/C to pt who agrees to appt today with [facility] provider for f/u labs. * Telephone Encounter - Adeola Velásquez RN - 04/16/2024 12:24 PM EST ----- Message from Jyotsna Veloz sent at 04/15/2024 1:47 PM EST ----- Please ensure pt had visit to discuss labs, - worsening renal function thank you ----- Message ----- From: Interface, Lab Results In Sent: 04/15/2024 9:39 AM EST To: Martha Joyner MD documented in this encounter Plan of Treatment Upcoming Encounters Date Type Department Care Team (Late st Contact Info) Description 04/22/2024 8:00 AM EST Office Visit [facility] ADULT DENTAL [address] [place] [address] Roxi Reagan, DMD [address] [place] [address] documented as of this encounter Visit Diagnoses Not on filedocumented in this encounter Additional Health Concerns Assessment Noted Time PHQ-9 Depression Total Score: 19 024 3:19 PM EDT documented as of this encounter Care Teams Cmv Driver Relationship Specialty Start Date End Date Martha Joyner MD [address] [place] [address] PCP - General Family Medicine 02/22/21 [facility] Nurse Practitioner Endocrinology 01/08/24 documented as of this encounter
--- OUTSIDE RECORDS SUMMARY | 2024-04-17 07:59 | XMS_ITS | Encounter Summary ---
Author Organization [employer] Address [address] [facility] 7t [place] [address] Care Team Providers Care Engineering Director Name Role Phone Martha Joyner MD Primary Care Provider [phone] Reason for Visit * Reason Comments Med Refill Encounter Details Date Type Department Care Team ([facility] st Contact Info) Description 07/21/2023 Refill [facility] CHC MED & PEDS [address] [place], [place] [phone] Martha Joyner MD [address] [place] [address] Type 2 diabetes mellitus with hyperglycemia, without long-term current use of insulin ([facility]) Social History Tobacco Use Types Packs/Day [...] Description 04/22/2024 8:00 AM EST Office Visit [facility] ADULT DENTAL [address] [place] [address] Roxi Reagan, DMD [address] [place] [address] documented as of this encounter Visit Diagnoses Diagnosis Type 2 diabetes mellitus with hyperglycemia, without long-term current use of insulin ([facility]) documented in this encounter Additional Health Concerns Assessment Noted Time PHQ-9 Depression Total Score: 17 024 5:09 PM EDT documented as of this encounter Care Teams Engineering Director Relationship Specialty Start Date End Date Martha Joyner MD [address] [place] [address] PCP - General Family Medicine 02/22/21 Endo [facility] Nurse Practitioner Endocrinology 01/08/24 documented as of this encounter
--- OUTSIDE RECORDS SUMMARY | 2024-04-17 07:59 | XMS_ITS | Encounter Summary ---
Author Organization [email or web address] Address [address] [facility] 7t [place] [address] Care Team Providers Care Board Certified Orthodontist Name Role Phone Martha Joyner MD Primary Care Provider [phone] Reason for Visit * Reason Comments Med Refill Encounter Details Date Type Department Care Team ([facility] st Contact Info) Description 05/30/2023 Refill [facility] CHC MED & PEDS [address] [place], [place] [phone] Martha Joyner MD [address] [place] [address] Primary hypertension Social History Tobacco Use Types [...] Description 04/22/2024 8:00 AM EST Office Visit [facility] CHC ADULT DENTAL [address] [place], [place] [phone] Roxi Reagan, TITUS [address] [place] [address] documented as of this encounter Visit Diagnoses Diagnosis Primary hypertension Unspecified essential hypertension documented in this encounter Additional Health Concerns Assessment Noted Time PHQ-9 Depression Total Score: 1 02/15/20 22 4:00 PM EST documented as of this encounter Care Teams Board Certified Orthodontist Relationship Specialty Start Date End Date Martha Joyner MD [address] [place] [address] PCP - General Family Medicine 02/22/21 [facility] Nurse Practitioner Endocrinology 01/08/24 documented as of this encounter
--- OUTSIDE RECORDS SUMMARY | 2024-04-17 07:59 | XMS_ITS | Encounter Summary ---
Author Organization [employer] Address [address] [facility] 7t [place] [address] Care Team Providers Care Aerodynamics Engineer Name Role Phone Martha Joyner MD Primary Care Provider [phone] Reason for Visit * Reason Comments fu labs results Encounter Details Date Type Department Care Team ([facility] Contact Info) Description 04/16/2024 2:30 PM EST Office Visit [facility] CHC MED & PEDS [address] [place] [address] Anson De Leon MD [address] [place] [address] Type 2 diabetes mellitus with hyperglycemia, without long-term current use of insulin ([facility]); Congestion of nasal sinus Social History Tobacco Use Types Packs/Day Years [...] Sign Reading Time Taken Comments Blood Pressure 120/70 04/16/2024 2:26 PM EST Pulse 92 04/16/2024 2:26 PM EST Temperature 36.6 ??C (97.9 ??F) 04/16/2024 2:26 PM ES T Respiratory Rate 18 04/16/2024 2:26 PM EST Oxygen Saturation - - Inhaled Oxygen Concentration - - Weight 135 kg (297 lb) 04/16/2024 2:26 PM EST Height 180.3 cm (5' 11 ) 04/16/2024 2:26 PM EST Body Mass Index 41.42 04/16/2024 2:26 PM EST documented in this encounter Plan of Treatment Upcoming Encounters Date Type Department Care Team (Late st Contact Info) Description 04/22/2024 8:00 AM EST Office Visit [facility] ADULT DENTAL [address] [place] [address] Roxi Reagan, TITUS [address] [place] [address] documented as of this encounter Procedures Procedure Name Priority Date/Time Associated Diagnosis Comments POCT RAPID COVID ANTIGEN Routine 04/16/2024 3:14 PM EST Congestion of nasal sinus POCT INFLUENZA B Routine 04/16/2024 3:13 PM EST Congestion of nasal sinus POCT INFLUENZA A Routine 04/16/2024 3:13 PM EST Congestion of nasal sinus POCT GLUCOSE Routine 04/16/2024 2:29 PM EST Type 2 diabetes mellitus with hyperglycemia, without long-term current use of insulin ([facility]) documented in this encounter Results * POCT Rapid Covid-19 BinaxNOW (04/16/2024 3:14 PM EST) [facility] Rapid COVID Ag Negative QC Media Lot # [id number] Lot# Expiration Date 7,026 Swab 04/16/2024 3:14 PM EST Anson Stapleton MD POINT OF CARE TEST ENTER/EDIT ORDERABLES Final Result * POCT Rapid Influenza B OSOM (04/16/2024 3:13 PM EST) [facility] Rapid Influenza B Ag Negative Negative, Indeterminate QC Media Lot # [id number] Lot# Expiration Date Swab 04/16/2024 3:13 PM EST Anson Stapleton MD POINT OF CARE TEST ENTER/EDIT ORDERABLES Final Result * POCT Rapid Influenza A OSOM (04/16/2024 3:13 PM EST) [facility] Rapid Influenza A Ag Negative Negative, Indeterminate QC Media Lot # [id number] Lot# Expiration Date Swab Nasopharyngeal structure / Unknown 04/16/2024 3:13 PM EST Anson Stapleton MD POINT OF CARE TEST ENTER/EDIT ORDERABLES Final Result * POCT Glucose (04/16/2024 2:29 PM EST) [facility] Glucose Blood, POC 126 60 - 200 mg/dL QC Media Lot # [id number] Lot# Expiration Date 56,878 Blood Capillary blood specimen / Unknown 04/16/2024 2:29 PM EST Anson Stapleton MD POINT OF CARE TEST ENTER/EDIT ORDERABLES Final Result documented in this encounter Visit Diagnoses Diagnosis Type 2 diabetes mellitus with hyperglycemia, without long-term current use of insulin ([facility]) Congestion of nasal sinus Other diseases of nasal cavity and sinuses documented in this encounter Additional Health Concerns Assessment Noted Time PHQ-9 Depression Total Score: 19 024 3:19 PM EDT documented as of this encounter Care Teams Aerodynamics Engineer Relationship Specialty Start Date End Date Martha Joyner MD [address] [place] [address] PCP - General Family Medicine 02/22/21 [facility] Nurse Practitioner Endocrinology 01/08/24 documented as of this encounter
--- OUTSIDE RECORDS SUMMARY | 2024-04-17 07:59 | XMS_ITS | Encounter Summary ---
Author Organization [facility] Address [address] [place] [address] Phone Care Team Providers Care Bank Accountant Name Role Phone Martha Joyner MD Primary Care Provider [phone] Encounter Details Date Type Department Care Team (Late st Contact Info) Description 06/29/2021 Documentation Only [facility], [address] [place] [address] Martha Joyner MD [address] [place] [address] Social History Tobacco Use Types Packs/Day Years [...] on filedocumented in this encounter Care Teams Bank Accountant Relationship Specialty Start Date End Date Martha Joyner MD PCP - General Family Medicine 06/29/21 documented as of this encounter
--- OUTSIDE RECORDS SUMMARY | 2024-04-17 07:59 | XMS_ITS | Encounter Summary ---
Author Organization [facility] Address [address] [place] [address] Phone Care Team Providers Care Golf Club Facer Name Role Phone Martha Joyner MD Primary Care Provider [phone] Encounter Details Date Type Department Care Team (Late st Contact Info) Description 06/29/2021 Documentation Only [facility], [address] [place] [address] Martha Joyner MD [address] [place] [address] Social History Tobacco Use Types Packs/Day Years [...] on filedocumented in this encounter Care Teams Golf Club Facer Relationship Specialty Start Date End Date Martha Joyner MD PCP - General Family Medicine 06/29/21 documented as of this encounter
--- OUTSIDE RECORDS SUMMARY | 2024-04-17 07:59 | XMS_ITS | Clinical Summary ---
Author Organization [employer] Address [address] [facility] 7t [place] [address] Care Team Providers Care Installer Metal Flooring Name Role Phone Martha Joyner MD Primary Care Provider Allergies No known active allergies Medications * [...] Blood Gluc Sensor (FreeStyle Jeannette 3 Sensor) [facility] USE DIRECTED TO TEST BLOOD SUGAR CHANGE [...] WITH MEALS 60 tablet 5 5 Active dapagliflozin (Farxiga) 10 MG Take 1 tablet (10 mg) by mouth Once per day. 30 tablet 11 5 04/16/19 26 Active Active Problems Problem Noted Date Diagnosed Date Itch of eye 01/08/2024 PTSD (post-traumatic stress disorder) 09/12/2023 Fractured dental jewish with loss of materi al 07/31/2023 JERRY [...] Glu = 109 Patient is managed by [facility] endo. His DM2 is trending in the [...] levels. Continue taking mounjaro as perscribed by apartment maintenance manager. Will montior and lower metformin as needed. [...] elevated a1c of 10.7% and glucoe of [facility]. No measuring his glucose at home, will [...] organization. Date Type Department Care Team Description 04/16/2024 2:30 PM EST Office Visit [facility] [address] [place] [address] Anson De Leon MD Type 2 diabetes mellitus with hyperglycemia, without long-term current use of insulin ([facility]); Congestion of nasal sinus 04/16/2024 Travel 04/16/[address] [address] Adeola Velásquez RN 04/15/2024 Orders Only GENERIC EXTERNAL DATA DEPARTMENT Provider, Generic External Data 03/27/2024 8:00 AM EST Office Visit [facility] [address] [place] [address] Roxi Reagan, TITUS 03/16/2024 Telephone [facility] [address] [place] [phone] Martha Joyner MD Med Refill 03/16/2024 Refill [facility] [address] [place] [address] Martha Joyner MD 03/06/2024 9:00 AM EST Office Visit [facility] [address] [place] [address] Roxi Reagan DMD 02/25/2024 8:00 AM EST Office Visit [facility] [address] [place] [address] Roxi Reagan, TITUS 02/17/2024 Refill [facility] [address] [place] [address] Martha Joyner MD Gout, unspecified cause, unspecified chronicity, unspecified site 02/13/2024 11:30 AM EST Office Visit [facility] [address] [place] [address] Roxi Reagan DMD 02/13/2024 Orders Only GENERIC EXTERNAL DATA DEPARTMENT Provider, Generic External Data 01/20/2024 3:00 PM EST Office Visit [facility] [address] [place] [address] Harvinder Newberry Dental calculus (Primary Dx) from [...] 18 04/16/2024 2:26 PM EST Oxygen Saturation 98% 01/08/2024 3:44 PM EST Inhaled Oxygen Concentration - - Weight 135 kg (297 lb) 04/16/2024 2:26 PM EST Height 180.3 cm (5' 11 ) 04/16/2024 2:26 PM EST Body Mass Index 41.42 04/16/2024 2:26 PM EST Plan of Treatment Upcoming Encounters Date Type Department Care Team ([facility] st Contact Info) Description 04/22/2024 8:00 AM EST Office Visit [facility] [address] [place], [place] [phone] Roxi Reagan, DMD [address] [place] [address] Health Maintenance Due Date Last Done Comments Diabetes: Foot Exam 06/13/1989 Alcohol/Substance Use Screening 1991 Family Planning (PISQ) 06/13/1994 Hepatitis A Vaccines (1 of 2 - Risk 2-dose series) 06/13/1998 Hepatitis B Vaccines (1 of 3 - 19+ 3-dose series) 06/13/1998 COVID-19 Vaccine ( season) 2023 02/21/2022, 08/03/2021 Depression Monitoring (PHQ-9) 03/14/2024 09/12/2023, 09/12/2023 Dental Prophylaxis 07/20/2024 01/20/2024 SDOH Screening 07/25/2024 07/26/2023 Dental Oral Exam 08/14/2024 02/13/2024 Influenza Vaccine (#1) 2024 Postp oned from 11/03/2023 (Patient Refused) Depression Screening 09/11/2024 09/12/2023, 09/12/19 24 Diabetes: Hemoglobin A1C 10/13/2024 025, 08/05/2023, 05/13/2023, Additional history exists Pneumococcal Vaccine: Pediatrics (0 to 5 Years) and At-Risk Patients (6 to 49) Years) (1 of 2 - PCV) 01/07/2025 Postponed from 06/13/1998 (Patient Refused) Dental X-Ray: Bitewings 01/20/2025 01/20/2024, 10/02 Diabetes: Urine Protein Screening 04/15/2025 04/15/2024, 11/09/2022, 05/18/2022, Additional history exists Lipid Panel 04/15/2025 04/15/2024, 10/2022, 05/18/2022, Additional history exists Tobacco Screening 04/16/2025 04/16/2024 Eye Exam 11/18/2025 11/19/2023 Dental X-Ray: Full [...] hyperglycemia, without long-term current use of insulin ([facility]) LIPID PANEL, STANDARD Routine 04/15/2024 8:29 AM EST BASIC METABOLIC PANEL Routine 04/15/2024 8:29 AM EST HEMOGLOBIN A1C Routine 04/15/2024 8:29 AM EST ALBUMIN, RANDOM URINE W/CREATININE Routine 04/15/2024 8:26 AM EST CASE PRESENTATION, DETAILED AND EXTENSIVE TREATMENT PLANNING Routine 03/27/2024 8:00 AM EST 3 MO RESIN-BASED COMPOSITE - 2 SURF, POSTERIOR Routine 03/27/2024 8:00 AM EST CASE PRESENTATION, DETAILED AND EXTENSIVE TREATMENT PLANNING Routine 03/06/2024 9:00 AM EST 14 MOL RESIN-BASED COMPOSITE - 3 SURF, POSTERIOR Routine 03/06/2024 9:00 AM EST CASE PRESENTATION, DETAILED AND EXTENSIVE TREATMENT PLANNING Routine 02/25/2024 [...] US SCROTUM Routine 02/13/2024 3:21 PM EST CASE PRESENTATION, DETAILED AND EXTENSIVE TREATMENT PLANNING Routine 02/13/2024 [...] AM EST 19 O COMPOSITE FILLING Routine 12:00 AM EST 18 O COMPOSITE FILLING [...] COMPOSITE FILLING Routine 02/13/2024 12:00 AM EST CASE PRESENTATION, DETAILED AND EXTENSIVE TREATMENT PLANNING Routine 01/20/2024 3:00 PM EST ORAL HYGIENE INSTRUCTIONS Routine 01/20/2024 3:00 PM EST INTRAORAL - COMPLETE SERIES OF RADIOGRAPHIC IMAGES Routine 01/20/2024 3:00 PM EST PROPHYLAXIS - ADULT Routine 01/20/2024 3 :00 PM EST HEPATITIS C ANTIBODY Routine 11/09/2022 9:00 AM EDT Type 2 diabetes mellitus with hyperglycemia, without long-term current use of insulin (CMS/HCC) HIV 1/2 ANTIGEN/ANTIBODY, FOURTH GENERATION W/RFL Routine 05/26/2021 9:29 AM EDT from Last 3 Months or Most Recently Relevant to Health Maintenance Results * POCT Rapid Covid-19 BinaxNOW (04/16/2024 3:14 PM EST) [facility] Rapid COVID Ag Negative QC Media Lot # [id number] Lot# Expiration Date 7,026 Swab 04/16/2024 3:14 PM EST Result [facility] Anson Stapleton MD POINT OF CARE TEST ENTER/EDIT ORDERABLES Final Result * POCT Rapid Influenza B OSOM (04/16/2024 3:13 PM EST) [facility] Rapid Influenza B Ag Negative Negative, Indeterminate QC Media Lot # [id number] Lot# Expiration Date Swab 04/16/2024 3:13 PM EST Result [facility] Anson Stapleton MD POINT OF CARE TEST ENTER/EDIT ORDERABLES Final Result * POCT Rapid Influenza A OSOM (04/16/2024 3:13 PM EST) [facility] Rapid Influenza A Ag Negative Negative, Indeterminate QC Media Lot # [id number] Lot# Expiration Date Swab Nasopharyngeal structure / Unknown 04/16/2024 3:13 PM EST Result [facility] Anson Stapleton MD POINT OF CARE TEST ENTER/EDIT ORDERABLES Final Result * POCT Glucose (04/16/2024 2:29 PM EST) [facility] Glucose Blood, POC 126 60 - 200 mg/dL QC Media Lot # [id number] Lot# Expiration Date Blood Capillary blood specimen / Unknown 04/16/2024 2:29 PM EST Result [facility] Anson Stapleton MD POINT OF CARE TEST ENTER/EDIT ORDERABLES Final Result * Hemoglobin A1c (04/15/2024 8:29 AM EST) [facility] Hemoglobin A1c 6.0 <6.0 % [facility] Comment:Hemoglobin A1C Refer ence Range Adults: 4.8 - 6.0 % Non diabetic: < 6.0 % Goal: < 7.0 %Additional Action Suggested: > 8.0 %Note: Hemoglobin A1c results are invalid for patients with abnormal amounts of HbF. Blood transfusions may impact the HbA1c concentration in the patient sample. Estimated Average Glucose 126 mg/dL [facility] Comment:eAG = Estimated ave rage glucose which is %A1C expressed asaverage glucose, using the formula of the W1Q-IomgamrIxbtntu Glucose study (ADAG), Diabetes Care, Vol.31,#8,Oct. 2007 04/15/2024 8:29 AM EST 04/15/2024 8:29 AM EST us Generic External Data Provider LAB BLOOD ORDERAB LES Final Result [facility] [address] [place] [phone] * (ABNORMAL) Lipid Panel, Standard (04/15/2024 8:29 AM EST) Triglycerides 199(H) <150 mg/dL [facility] Comment:Desirable Triglyceri de: less than 150 mg/dLBorderline High Triglyceride 150-199 mg/dLHigh Triglyceride: 200-499 mg/dLVery High Triglyceride: greater than or equal to 5OO mg/dL Cholesterol 150 <200 mg/dL [facility] Comment:Desirable Cholestero l: less than 200 mg/dLBorderline High Cholesterol: 200-239 mg/dLHigh Cholesterol: greater than 239 mg/dL LDL Cholesterol Calculated 78 <100 mg/dL [facility] Comment:Desirable LDL: less than 100 mg/dLNear Optimal/Above Optimal LDL: 110- 129 mg/dLBorderline High LDL: 130-159 mg/dLHigh LDL: 160-189 mg/dLVery High LDL: greater than or equal to 190 mg/dL HDL Cholesterol 33(L) >40 mg/dL [facility] Comment:Desirable HDL: grea ter than 40 mg/dL Note: This HDL assay may give artificially low results in patients with liver disease. 04/15/2024 8:29 AM EST 04/15/2024 8:29 AM EST us Generic External Data Provider LAB BLOOD ORDERAB LES Final Result Performing Organization Address [facility] Co de Phone Number [facility] [address] [place] [phone] * (ABNORMAL) Basic Metabolic Panel (04/15/2024 8:29 AM EST) Sodium 139 135 - 145 mmol/L [facility] Potassium 4.6 3.3 - 5.1 mmol/L [facility] Chloride 105 96 - 108 mmol/L [facility] Carbon Dioxide 27 22 - 29 mmol/L [facility] Anion Gap 12 12 - 20 [facility] Urea Nitrogen (BUN) 34(H) 9 - 16 mg/dL [facility] Creatinine, Serum 1.69(H) 0.5 - 1.4 mg/dL [facility] Estimated Glomerular Filt Rate 44 [facility] Comment:Chronic Kidney Disea se: Estimated GFR < 60 mL/min/1.13n6Mbipyk Kidney Disease: Estimated GFR < 15 mL/min/1.73m2 Glucose 117(H) 60 - 115 mg/dL [facility] Calcium 9.1 8.4 - 10.2 mg/dL [facility] 04/15/2024 8:29 AM EST 04/15/2024 8:29 AM EST us Generic External Data Provider LAB BLOOD ORDERAB LES Final Result Performing Organization Address [facility]/ZIP Co de Phone Number [facility] [address] [place] [phone] * (ABNORMAL) Albumin, Random Urine W/Creatinine (04/15/2024 8:26 AM EST) Creatinine, Urine 142.30 mg/dL [facility] Microalbumin Urine >2,000.0 mg/L [facility] Microalbum Creatinine Ratio Ur 1,405.4(H ) <30 ug/mg cr [facility] Comment:Albumin/Creatinine R atio Reference Ranges: Normal: < 30 ug/mg creatinine Microalbuminuria: 30 - 300 ug/mg creatinineClinical Albuminuria: > 300 ug/mg creatinine 04/15/2024 8:26 AM EST 04/15/2024 9:32 AM EST Generic External Data Provider LAB URINE ORDERAB LES Final Result Performing Organization Address [facility] Phone Number [facility] [address] [place] [phone] * (ABNORMAL) Sex Hormone Binding Globulin (SHBG) (02/13/2024 3:46 PM EST) Sex Hormone Binding Globulin 57(A) 10 - 50 nmol/L [facility] Comment:THIS TEST WAS PERFOR MED AT:[facility] [address] [id number] FISHMAN MD 02/13/2024 3:46 PM EST 02/13/2024 3:46 PM EST Generic External Data Provider LAB BLOOD ORDERAB LES Final Result Performing Organization Address [facility] [address] [place] [phone] * (ABNORMAL) Estradiol (02/13/2024 3:46 PM EST) Estradiol Ultra Sensitive 86(A) < OR = 29 pg/mL [facility] Comment:This test was develo ped and its analytical performancecharacteristics have been determined by [employer].It has not been cleared or approved by FDA. This assay hasbeen validated pursuant to the CLIA regulations and is usedfor clinical purposes.THIS TEST WAS PERFORMED AT:[facility]/[place] [id number] SAMANTA GRANT [id number] LUIS MOCTEZUMA MD,PHD,FRANK 02/13/2024 3:46 PM EST 02/13/2024 3:46 PM EST Generic External Data Provider LAB BLOOD ORDERAB LES Final Result Performing Organization Address [facility] Co de Phone Number [facility] [address] [place] [phone] * Testosterone, Total, males (Adult), IA (02/13/2024 3:46 PM EST) Testosterone, Total 734 250 - 1100 ng/dL [facility] Comment:For additional infor mation, please refer tohttp://education.[employer].KLab/faq/[email or web address](This link is being provided for informational/educational purposes only.)This test was developed and its analytical performancecharacteristics have been determined by [employer] [place], [place]. It hasnot been cleared or approved by the U.S. Food and DrugAdministration. This assay has been validated pursuantto the CLIA regulations and is used for clinicalpurposes.THIS TEST WAS PERFORMED AT:[facility] [place] [address]UJBLJACLAURY ELLIS MD,PHD 02/13/2024 3:46 PM EST 02/13/2024 3:46 PM EST Generic External Data Provider LAB BLOOD ORDERAB LES Final Result Performing Organization Address [facility] Co de Phone Number [facility] [address] [place] [phone] * (ABNORMAL) LH (02/13/2024 3:46 PM EST) Lutenizing Hormone 12.1(A) 1.5 - 9.3 mIU/mL [facility] Comment:THIS TEST WAS PERFOR MED AT:[facility] [address] [id number] FISHMAN MD 02/13/2024 3:46 PM EST 02/13/2024 3:46 PM EST us Generic External Data Provider LAB BLOOD ORDERAB LES Final Result Performing Organization Address [facility] de Phone Number [facility] [address] [place] [phone] * Albumin (02/13/2024 3:46 PM EST) Albumin Level 3.6 3.5 - 5.0 g/dL [facility] 02/13/2024 3:46 PM EST 02/13/2024 3:46 PM EST Generic External Data Provider LAB BLOOD ORDERAB LES Final Result Performing Organization Address [facility] de Phone Number [facility] [address] [place] [phone] * US Scrotum (02/13/2024 3:21 PM EST) Anatomical Region Laterality Modality Body Ultrasound 02/13/2024 3:21 PM EST Narrative 03/31/2024 11:28 AM EST ? [facility] ?[address] ?[place] [address] ? Ultrasound Report ? Signed ? Patient: Aaliyah Mendieta,Edd ?MR#: M ?? [id number] ? : 1980 ?Acct:[id number] ? Age/Sex: 43 / M ?ADM Date: 02/13/24 ? Loc: HO.LAB ? Attending Dr: Filemon Dennis MD ? Ordering Physician: Filemon Dennis MD ?? Date of Service: 02/13/24 ?? Procedure(s): US scrotum ?? Accession Number(s): [id number] ? cc: Filemon Dennis MD; Martha Joyner [...] signed by Ady Spear MD in OV> ?03/31/24 1126 ? DD/ 1521 ? TD/TT: 02/13/24 1532 ? Wall Cleaner: ? Procedure Note Doncarlater, Image - 03/31/[address] [address] Ultrasound Report Signed Patient: Donal Shaw#: M [id number] : 1980Acct:[id number] Age/Sex: 43 / MADM Date: 02/13/24 Loc: HO.LAB Attending Dr: Filemon Dennis MD Ordering Physician: Filemon Dennis MD Date of Service: 02/13/24 Procedure(s): US scrotum Accession Number(s): [id number] cc: Filemon Dennis MD; Martha Joyner MD [...] 03/31/24 1126 DD/ 1521 TD/TT: 02/13/24 1532 Wall Cleaner: [facility] External Provider IMG US PROCEDURES Final Result * Hepatitis C Ab (11/09/2022 9:00 AM EDT) Hepatitis C Antibody Nonreactive Nonreactive [facility] Comment:Antibodies to HCV no t detected; does not exclude early acuteHCV infection. Blood 11/09/2022 9:00 AM EDT 11/09/2022 2:35 PM EDT us Martha Joyner MD LAB BLOOD ORDERABLES Final Re sult [facility] [address] [place] [phone] * HIV 1/2 ANTIGEN/ANTIBODY,FOURTH GENERATION W/RFL (05/26/2021 9:29 AM EDT) Pathologist [facility] HIV-1/2 ANTIGEN AND ANTIBODIES, 4TH GENERATION W/ REFLEX NON-REACT TABITHA NON-REACT TABITHA [facility] Comment: HIV-1 antigen and HIV-1/HIV-2 [...] ? For additional information please refer to http://education.SOL ELIXIRS/faq/HMF260 (This link is being provided for informational/ educational purposes only.) ? The performance of this assay has not been clinically validated in patients less than 2 years old. ?? 05/26/2021 9:29 AM EDT us Martha Joyner MD LAB BLOOD ORDERABLES Final Re sult [facility] [address] from Last 3 Months or Most Recently Relevant to Health Maintenance Insurance [facility] D[facility] - HSN PARTIAL (MEDICAID) Care Teams Installer Metal Flooring Relationship Specialty Start Date End Date Martha Joyner MD [address] [place] [phone] PCP - General Family Medicine 02/22/21 Endo [facility] Nurse Practitioner Endocrinology 01/08/24
--- OUTSIDE RECORDS SUMMARY | 2024-04-17 07:59 | XMS_ITS | Encounter Summary ---
Author Organization [employer] Address [address] [facility] [address]t [place] [address] Care Team Providers Care Thread Winder Name Role Phone Martha Joyner MD Primary Care Provider [phone] Reason for Visit * Reason Comments Filling Encounter Details Date Type Department Care Team ([facility] Contact Info) Description 03/27/2024 8:00 AM EST Office Visit [facility] [address] [place], [place] [phone] Roxi Reagan, DMD [address] [place], [place] [phone] Social History Tobacco Use Types Packs/Day Years [...] y.o. male. Time Out: Date: 03/27/2024 Location: [facility] Tooth: #3 Procedure: Jew Verified the above with patient, branch assistant, and provider. Confirmed via patient's chart, intraorally and by radiographs. Debt Recovery Officer: not applicable Composite quaker done on #[address] Roxi [...] carpule 2% lidocaine 1:100,000 epinephrine - Existing quaker and recurrent decay removed - Matrix band and wedge used as needed - Desensitizer: GLUMA - Etching done using 37% phosphoric acid and rinsed. - agent contract clerk applied and light cured. - Composite quaker done using Filtek body and flowable composite, shade A3. - Anatomy and margins adjusted. - Proximal contact confirmed with floss. - Occlusion checked with articulating paper. - Necessary reductions made. - Jew smoothed and polished. - Post op instructions given. - Patient made aware possible post op sensitivity. All patient questions answered. Patient comfortable upon dismissal. NV: Restorative Provider: Dr. Roxi Reagan DMD Hemstitcher: Ping Anglin Supervising Dentist: Dr. Valerie Le [...] Description 04/22/2024 8:00 AM EST Office Visit [facility] ADULT D[facility] [address] [place] [address] Roxi Reagan DMD [address] [place] [address] documented as of this encounter Procedures Procedure Name Priority Date/Time Associated Diagnosis Comments 3 MO RESIN-BASED COMPOSITE - 2 SURF, POSTERIOR Routine 03/27/2024 8:00 AM EST CASE PRESENTATION, DETAILED AND EXTENSIVE TREATMENT PLANNING Routine 03/27/2024 8:00 AM EST documented in this encounter Visit Diagnoses Not on filedocumented in this encounter Additional Health Concerns Assessment Noted Time PHQ-9 Depression Total Score: 19 07//2 024 3:19 PM EDT documented as of this encounter Care Teams Thread Winder Relationship Specialty Start Date End Date Martha Joyner MD [address] [place] [address] PCP - General Family Medicine 02/22/21 Endo [facility] Nurse Practitioner Endocrinology 01/08/24 documented as of this encounter
--- OUTSIDE RECORDS SUMMARY | 2024-04-17 07:59 | XMS_ITS | Encounter Summary ---
Author Organization [employer] Address [address] [facility] [address] [place] [address] Care Team Providers Care Felling Bucking Supervisor Name Role Phone Martha Joyner MD Primary Care Provider [phone] Encounter Details Date Type Department Care Team (Latest Contact Info) Description 04/16/2024 Travel Social History Tobacco Use Types Packs/Day Years [...] Description 04/22/2024 8:00 AM EST Office Visit [facility] [address] [place] [address] Roxi Reagan, DMD [address] [place] [address] documented as of this encounter Visit Diagnoses Not on filedocumented in this encounter Additional Health Concerns Assessment Noted Time PHQ-9 Depression Total Score: 19 024 3:19 PM EDT documented as of this encounter Care Teams Felling Bucking Supervisor Relationship Specialty Start Date End Date Martha Joyner MD [address] [place] [address] PCP - General Family Medicine 02/22/21 Endo [facility] Nurse Practitioner Endocrinology 01/08/24 documented as of this encounter
--- OUTSIDE RECORDS SUMMARY | 2024-04-17 07:59 | XMS_ITS | Encounter Summary ---
Author Organization [employer] Address [address] [facility] [facility] [address] 7t [place] [address] Care Team Providers Care Investment Strategist Name Role Phone Martha Joyner MD Primary Care Provider [phone] Encounter Details Date Type Department Care Team (Late st Contact Info) Description 04/15/2024 Orders Only GENERIC EXTERNAL DATA DEPARTMENT Provider, Generic External Data Social History Tobacco Use Types Packs/Day Years [...] 8:00 AM EST Office Visit [facility] ADULT DENTAL [address] [place] [address] Roxi Reagan, DMD [address] [place] [address] documented as of this encounter Procedures Procedure Name Priority Date/Time Associated Diagnosis Comments HEMOGLOBIN A1C Routine 04/15/2024 8:29 AM EST LIPID PANEL, STANDARD Routine 04/15/2024 8:29 AM EST BASIC METABOLIC PANEL Routine 04/15/2024 8:29 AM EST ALBUMIN, RANDOM URINE W/CREATININE Routine 04/15/2024 8:26 AM EST documented in this encounter Results * (ABNORMAL) Lipid Panel, Standard (04/15/2024 8:29 AM EST) Triglycerides 199(H) <150 mg/dL [facility] Comment:Desirable Triglyceri de: less than 150 mg/dLBorderline High Triglyceride 150-199 mg/dLHigh Triglyceride: 200-499 mg/dLVery High Triglyceride: greater than or equal to 5OO mg/dL Cholesterol 150 <200 mg/dL [facility] Comment:Desirable Cholestero l: less than 200 mg/dLBorderline High Cholesterol: 200-239 mg/dLHigh Cholesterol: greater than 239 mg/dL LDL Cholesterol Calculated 78 <100 mg/dL [facility] Comment:Desirable LDL: less than 100 mg/dLNear Optimal/Above Optimal LDL: 110- 129 mg/dLBorderline High LDL: 130-159 mg/dLHigh LDL: 160-189 mg/dLVery High LDL: greater than or equal to 190 mg/dL HDL Cholesterol 33(L) >40 mg/dL [facility] Comment:Desirable HDL: great er than 40 mg/dL Note: This HDL assay may give artificially low results in patients with liver disease. 04/15/2024 8:29 AM EST 04/15/2024 8:29 AM EST us Generic External Data Provider LAB BLOOD ORDERAB LES Final Result Performing Organization Address [facility]/ZIP Co de Phone Number [facility] [address] [place] [address] [phone] * (ABNORMAL) Basic Metabolic Panel (04/15/2024 8:29 AM EST) Sodium 139 135 - 145 mmol/L [facility] Potassium 4.6 3.3 - 5.1 mmol/L [facility] Chloride 105 96 - 108 mmol/L [facility] Carbon Dioxide 27 22 - 29 mmol/L [facility] Anion Gap 12 12 - 20 [facility] Urea Nitrogen (BUN) 34(H) 9 - 16 mg/dL [facility] Creatinine, Serum 1.69(H) 0.5 - 1.4 mg/dL [facility] Estimated Glomerular Filt Rate 44 [facility] Comment:Chronic Kidney Disea se: Estimated GFR < 60 mL/min/1.87c1Nxafem Kidney Disease: Estimated GFR < 15 mL/min/1.73m2 Glucose 117(H) 60 - 115 mg/dL [facility] Calcium 9.1 8.4 - 10.2 mg/dL [facility] 04/15/2024 8:29 AM EST 04/15/2024 8:29 AM EST us Generic External Data Provider LAB BLOOD ORDERAB LES Final Result Performing Organization Address City/[facility]/ZIP Co de Phone Number [facility] [address] [place] [phone] * Hemoglobin A1c (04/15/2024 8:29 AM EST) Hemoglobin A1c 6.0 <6.0 % [facility] Comment:Hemoglobin A1C Refer ence Range Adults: 4.8 - 6.0 % Non diabetic: < 6.0 % Goal: < 7.0 %Additional Action Suggested: > 8.0 %Note: Hemoglobin A1c results are invalid for patients with abnormal amounts of HbF. Blood transfusions may impact the HbA1c concentration in the patient sample. Estimated Average Glucose 126 mg/dL [facility] Comment:eAG = Estimated ave rage glucose which is %A1C expressed asaverage glucose, using the formula of the [id number] Glucose study (ADAG), Diabetes Care, Vol.31,#8,2007 04/15/2024 8:29 AM EST 04/15/2024 8:29 AM EST us Generic External Data Provider LAB BLOOD ORDERAB LES Final Result Performing Organization Address City/[facility]/ZIP Co de Phone Number [facility] [address] [place] [phone] * (ABNORMAL) Albumin, Random Urine W/Creatinine (04/15/2024 8:26 AM EST) Creatinine, Urine 142.30 mg/dL [facility] Microalbumin Urine >2,000.0 mg/L [facility] Microalbum Creatinine Ratio Ur 1,405.4(H ) <30 ug/mg cr [facility] Comment:Albumin/Creatinine R atio Reference Ranges: Normal: < 30 ug/mg creatinine Microalbuminuria: 30 - 300 ug/mg creatinineClinical Albuminuria: > 300 ug/mg creatinine 04/15/2024 8:26 AM EST 04/15/2024 9:32 AM EST us Generic External Data Provider LAB URINE ORDERAB LES Final Result Performing Organization Address [facility]/ZIP Co de Phone Number [facility] [address] [place] [phone] documented in this encounter Visit Diagnoses Not on filedocumented in this encounter Additional Health Concerns Assessment Noted Time PHQ-9 Depression Total Score: 19 024 3:19 PM EDT documented as of this encounter Care Teams Investment Strategist Relationship Specialty Start Date End Date Martha Joyner MD [address] [place] [address] PCP - General Family Medicine 02/22/21 [facility] Nurse Practitioner Endocrinology 01/08/24 documented as of this encounter
--- OUTSIDE RECORDS SUMMARY | 2024-04-17 07:59 | XMS_ITS | Encounter Summary ---
Author Organization [facility] Address [address] [place] [address] Phone Care Team Providers Care Graduate School Dean Name Role Phone Martha Joyner MD Primary Care Provider [phone] Encounter Details Date Type Department Care Team (Late st Contact Info) Description 06/29/2021 Documentation Only [facility] [place], [address] [place] [address] Martha Joyner MD [address] [place] [address] Social History Tobacco Use Types Packs/Day Years [...] on filedocumented in this encounter Care Teams Graduate School Dean Relationship Specialty Start Date End Date Martha Joyner MD PCP - General Family Medicine 06/29/21 documented as of this encounter
--- OUTSIDE RECORDS SUMMARY | 2024-04-17 07:59 | XMS_ITS | Clinical Summary ---
Author Organization [facility] [place], Address [address] [place] [address] [place] [address] Phone Care Team Providers Care Pan Greaser Name Role Phone Martha Joyner MD Primary Care Provider [phone] Allergies Active Allergy Reactions Criticality Noted Date [...] DAILY UNTIL FINISHED 3 Active TechLite Pen [place]en 31G X 5 MM misc USE DAILY [...] Blood Gluc Sensor (FreeStyle Jeannette 3 Sensor) [facility] USE DIRECTED TO TEST BLOOD [...] Hemoglobin A1C 11/05/2023 024, 10/01/2022, 05/14/2022 Insurance [facility] ([id number]) Care Teams Pan Greaser Relationship Specialty Start Date End Date Martha Joyner MD PCP - General Family Medicine 06/29/21
--- OUTSIDE RECORDS SUMMARY | 2024-04-17 07:59 | XMS_ITS | Encounter Summary ---
Author Organization [employer] Address [address] [facility] 7t [place] [address] Care Team Providers Care Breakfast Supervisor Name Role Phone Martha Joyner MD Primary Care Provider [phone] Reason for Visit * Reason Comments Med Refill Encounter Details Date Type Department Care Team ([facility] Contact Info) Description 01/03/2023 Refill [facility] CHC MED & PEDS [address] [place], [place] [phone] Tereza Wagner MD [address] [place] [address] Social History Tobacco Use Types Packs/Day Years [...] Description 04/22/2024 8:00 AM EST Office Visit [facility] CHC ADULT DENTAL [address] [place], [place] [phone] Roxi Reagan, TITUS [address] [place] [address] documented as of this encounter Visit Diagnoses Not on filedocumented in this encounter Additional Health Concerns Assessment Noted Time PHQ-9 Depression Total Score: 1 02/15/20 22 4:00 PM EST documented as of this encounter Care Teams Breakfast Supervisor Relationship Specialty Start Date End Date Martha Joyner MD [address] [place] [address] PCP - General Family Medicine 02/22/21 [facility] Nurse Practitioner Endocrinology 01/08/24 documented as of this encounter
--- OUTSIDE RECORDS SUMMARY | 2024-04-17 07:59 | XMS_ITS | Encounter Summary ---
Author Organization [employer] Address [address] [place] [address] 7t [place] [address] Care Team Providers Care Silvering Department Supervisor Name Role Phone Martha Joyner MD Primary Care Provider [phone] Encounter Details Date Type Department Care Team (Late Contact Info) Description 02/15/2022 Orders Only [facility] ED MED & PEDS [address] [place] [address] Martha Joyner MD [address] [place] [address] Type 2 diabetes mellitus with hyperglycemia, without long-term current use of insulin ([facility]) (Primary Dx) Social History Tobacco Use Types [...] Office Visit [facility] CHC ADULT DENTAL [address] [place] [address] Roxi Reagan, DMD [address] [place] [address] documented as of this encounter Procedures Procedure [...] 9:05 AM EDT) Creatinine, Urine 97.12 mg/dL [facility] Microalbumin Urine 900.0 mg/L [facility] Microalbum Creatinine Ratio Ur 926.6(H) <30 ug/mg cr [facility] Comment:Albumin/Creatinine R atio Reference Ranges: Normal: < 30 ug/mg creatinine Microalbuminuria: 30 - 300 ug/mg creatinineClinical Albuminuria: > 300 ug/mg creatinine 11/09/2022 9:05 AM EDT 11/09/2022 2:30 PM EDT Martha Joyner MD LAB URINE ORDERABLES Final Re sult Performing Organization Address [facility] Co de Phone Number LABS [address] [place] [phone] * (ABNORMAL) Sed Rate by Modified Augustusren (11/09/2022 9:00 AM EDT) Erythrocyte Sedimentation Rate 34(H) 0 - 15 MM/HR [facility] Comment:Patients with polycy themia and many hemoglobin abnormalitiesmay have depressed sed rates whereas patients with anemiamay have elevated sed rates. 11/09/2022 9:00 AM EDT 11/09/2022 2:45 PM EDT Martha Joyner MD LAB BLOOD ORDERABLES Final Re sult Performing Organization Address [facility] Co de Phone Number [facility] [address] [place] [phone] * (ABNORMAL) Comprehensive Metabolic Panel, Fasting (11/09/2022 9:00 AM EDT) Sodium 139 135 - 145 mmol/L [facility] Potassium 4.5 3.3 - 5.1 mmol/L [facility] Chloride 106 96 - 108 mmol/L [facility] Carbon Dioxide 25 22 - 29 mmol/L [facility] Anion Gap 13 12 - 20 [facility] Urea Nitrogen (BUN) 26(H) 9 - 16 mg/dL [facility] Creatinine, Serum 1.35 0.5 - 1.4 mg/dL [facility] Estimated Glomerular Filt Rate 58 [facility] Comment:NOTE: For -Am erican individuals, multiply the result by 1.210.Chronic Kidney Disease: Estimated GFR < 60 mL/min/1.71g5Jxqgkl Kidney Disease: Estimated GFR < 15 mL/min/1.73m2 Glucose Fasting 109(H) 60 - 99 mg/dL [facility] Comment:A fasting glucose fr om 100-125 mg/dl is considered impaired(pre-diabetes). Calcium 10.1 8.4 - 10.2 mg/dL [facility] Bilirubin, Total 0.4 0.0 - 1.0 mg/dL [facility] Aspartate Amino Transferase 30 5 - 37 U/L [facility] Alanine Aminotransferase 27 0 - 40 U/L [facility] Total Protein 7.5 6.5 - 8.0 g/dL [facility] Albumin Level 3.9 3.5 - 5.0 g/dL [facility] Alkaline Phosphatase 78 39 - 117 U/L [facility] 11/09/2022 9:00 AM EDT 11/09/2022 2:45 PM EDT Martha Joyner MD LAB BLOOD ORDERABLES Final Re sult Performing Organization Address [facility] Co de Phone Number [facility]S [address] [place] [phone] * (ABNORMAL) Glucose, Whole Blood (07/27/2022 2:52 PM EDT) Glucose, Whole Blood 183(H) 60 - 115 mg/dL [facility] Comment:METER #: [id number] 5Testing performed in the Endocrinology Department [address] , [address], [facility]. 07/27/2022 2:52 PM EDT 07/27/2022 2:56 PM EDT [facility] External Provider LAB BLO OD ORDERABLES Final Result Performing Organization Address City/[facility]/ZIP Co de Phone Number LABS [address] [place] [phone] * Albumin, Random Urine W/Creatinine (05/18/2022 11:59 AM EDT) Creatinine, Urine 72.74 mg/dL [facility] Microalbumin Urine 747.0 mg/L [facility] Microalbum Creatinine Ratio Ur 1,026.9 ug/mg cr [facility] Comment:Albumin/Creatinine R atio Reference Ranges: Normal: < 30 ug/mg creatinine Microalbuminuria: 30 - 300 ug/mg creatinineClinical Albuminuria: > 300 ug/mg creatinine 05/18/2022 11:5 9 AM EDT 05/18/2022 1:23 PM EDT us [facility] External Provider LAB URI NE ORDERABLES Final Result [facility] [address] [place] [phone] * Lipid Panel, Standard (05/18/2022 11:47 AM EDT) Triglycerides 243 mg/dL [facility] Comment:Desirable Triglyceri de: less than 150 mg/dLBorderline High Triglyceride 150-199 mg/dLHigh Triglyceride: 200-499 mg/dLVery High Triglyceride: greater than or equal to 5OO mg/dL Cholesterol 152 mg/dL [facility] Comment:Desirable Cholestero l: less than 200 mg/dLBorderline High Cholesterol: 200-239 mg/dLHigh Cholesterol: greater than 239 mg/dL LDL Cholesterol Calculated 70 mg/dl [facility] Comment:Desirable LDL: less than 100 mg/dLNear Optimal/Above Optimal LDL: 110- 129 mg/dLBorderline High LDL: 130-159 mg/dLHigh LDL: 160-189 mg/dLVery High LDL: greater than or equal to 190 mg/dL HDL Cholesterol 34 mg/dL [facility] Comment:Desirable HDL: great er than 40 mg/dL Note: This HDL assay may give artificially low results in patients with liver disease. 05/18/2022 11:4 7 AM EDT 05/18/2022 1:23 PM EDT [facility] External Provider LAB BLO OD ORDERABLES Final Result Performing Organization Address [facility] Co de Phone Number [facility] [address] [place] [phone] * (ABNORMAL) Glucose, Whole Blood (05/18/2022 10:23 AM EDT) Glucose, Whole Blood 172(H) 60 - 115 mg/dL [facility] Comment:METER #: [id number] 5Testing performed in the Endocrinology Department [address] , [address], [facility]. 05/18/2022 10:2 3 AM EDT 05/18/2022 10:28 AM EDT [facility] External Provider LAB BLO OD ORDERABLES Final Result Performing Organization Address [facility] de Phone Number LABS [address] [place] [phone] documented in this encounter Visit Diagnoses Diagnosis Type 2 diabetes mellitus with hyperglycemia, without long-term current use of insulin (CMS/HCC)- Primary documented in this encounter Additional Health Concerns Assessment Noted Time PHQ-9 Depression Total Score: 1 02/15/20 22 4:00 PM EST documented as of this encounter Care Teams Silvering Department Supervisor Relationship Specialty Start Date End Date Martha Joyner MD [address] [place] [address] PCP - General Family Medicine 02/22/21 [facility] Nurse Practitioner Endocrinology 01/08/24 documented as of this encounter
--- OUTSIDE RECORDS SUMMARY | 2024-04-17 07:59 | XMS_ITS | Encounter Summary ---
Author Organization [employer] Address [address] [facility] 7t [place] [address] Care Team Providers Care Fisher Trammel Net Name Role Phone Martha Joyner MD Primary Care Provider [phone] Encounter Details Date Type Department Care Team ([facility] st Contact Info) Description 05/01/2023 Telephone [facility] CHC MED & PEDS [address] [place], [place] [phone] Martha Joyner MD [address] [place], [place] [phone] Social History Tobacco Use Types Packs/Day Years [...] 8:00 AM EST Office Visit [facility] CHC ADULT DENTAL [address] [place], [place] [phone] Roxi Reagan, DMD [address] [place] [address] documented as of this encounter Visit Diagnoses Not on filedocumented in this encounter Additional Health Concerns Assessment Noted Time PHQ-9 Depression Total Score: 1 02/15/20 22 4:00 PM EST documented as of this encounter Care Teams Fisher Trammel Net Relationship Specialty Start Date End Date Martha Joyner MD [address] [place] [address] PCP - General Family Medicine 02/22/21 [facility] Nurse Practitioner Endocrinology 01/08/24 documented as of this encounter
--- OUTSIDE RECORDS SUMMARY | 2024-04-17 07:59 | XMS_ITS | Encounter Summary ---
Author Organization [employer] Address [address] [facility] [address] 7t [place] [address] Care Team Providers Care Intake Counselor Name Role Phone Martha Joyner MD Primary Care Provider [phone] Reason for Visit * Reason Onset Date Comments Med Refill 03/16/2024 Encounter Details Date Type Department Care Team ([facility] st Contact Info) Description 03/16/2024 Telephone [facility] MEDICINE [address] [place] [address] Martha Joyner MD [address] [place] [address] Med Refill Social History Tobacco Use Types [...] 6.25 MG tablet To be sent to: [facility] documented in this encounter Plan of Treatment Upcoming Encounters Date Type Department Care Team (Late st Contact Info) Description 04/22/2024 8:00 AM EST Office Visit [facility] CHC ADULT DENTAL [address] [place] [address] Roxi Reagan, DMD [address] [place] [address] documented as of this encounter Visit Diagnoses Not on filedocumented in this encounter Additional Health Concerns Assessment Noted Time PHQ-9 Depression Total Score: 19 024 3:19 PM EDT documented as of this encounter Care Teams Intake Counselor Relationship Specialty Start Date End Date Martha Joyner MD [address] [place] [address] PCP - General Family Medicine 02/22/21 [facility] Nurse Practitioner Endocrinology 01/08/24 documented as of this encounter
--- OUTSIDE RECORDS SUMMARY | 2024-04-17 07:59 | XMS_ITS | Encounter Summary ---
Author Organization [employer] Address [address] [place] [address] 7t [place] [address] Care Team Providers Care Corporate Strategist Name Role Phone Martha Joyner MD Primary Care Provider [phone] Reason for Visit * Reason Comments Med Refill Encounter Details Date Type Department Care Team ([facility] Contact Info) Description 10/15/2022 Refill [facility] MED & PEDS [address] [place] [address] Martha Joyner MD [address] [place] [address] Type 2 diabetes mellitus with hyperglycemia, without long-term current use of insulin ([facility]) Social History Tobacco Use Types Packs/Day [...] Description 04/22/2024 8:00 AM EST Office Visit [facility] ADULT DENTAL [address] [place] [address] Roxi Reagan DMD [address] [place] [address] documented as of this encounter Visit Diagnoses Diagnosis Type 2 diabetes mellitus with hyperglycemia, without long-term current use of insulin ([facility]) documented in this encounter Additional Health Concerns Assessment Noted Time PHQ-9 Depression Total Score: 1 02/15/20 22 4:00 PM EST documented as of this encounter Care Teams Corporate Strategist Relationship Specialty Start Date End Date Martha Joyner MD [address] [place] [phone] PCP - General Family Medicine 02/22/21 [facility] Nurse Practitioner Endocrinology 01/08/24 documented as of this encounter
[2024-04-17 08:03] VITALS: BP 110/62; PULSE 87; O2SAT 96; BMI 41.7
--- NOTE | 2024-04-17 08:03 | A.OFFVIS_ITS ---
Vital Signs 04/17/24 08:03 Height 6 ft Weight 307 lb 8.717 oz BMI 41.7 BP 110/62 Blood Pressure Location Lt brachial Position Sitting Pulse 87 Pulse Source Pulse Oximeter Pulse Oximetry (%) 96 Oxygen Delivery Method Room Air Intake Visit Reasons: T2DM Intake Note: Patient present today for Type 2 Diabetes Mellitus Last Diabetic eye exam: 11/2023 Last Podiatry Visit: Doesn't have one Random Glucose: 119 mg/dl HgA1C: 6.0% 04/15/24 Online Marketing Manager Required: No Accompanied by: Self / Same As Patient Allergies No Known Allergies Allergy (Verified 04/17/24 08:07) Medication List - Last Reconciled 04/17/24 by Park Perkins PA-C allopurinol 300 mg PO BEDTIME amlodipine 10 mg PO DAILY blood-glucose meter (FreeStyle [place] Lite kit) As directed blood-glucose sensor (FreeStyle Jeannette 3 Sensor device) As directed change every 14 days cholecalciferol (vitamin D3) 50 mcg PO DAILY clomiphene citrate 50 mg PO DAILY 90 days cyanocobalamin (vitamin B-12) 3,000 mcg PO DAILY dapagliflozin propanediol (Farxiga) 10 mg PO DAILY lancets (TRUEplus Lancets) As directed metformin ER 500 mg PO BID methocarbamol 750 mg PO Q6H PRN thiamine HCl (vitamin B1) 500 mg PO DAILY tirzepatide (Mounjaro) 10 mg (0.5 mL) subcut QWEEK valsartan 320 mg PO DAILY HPI HPI T2DM: Details: Patient is a 43-year-old male who has a significant past medical history of type 2 diabetes, hypertension, low libido, gout who presents today for a diabetic follow-up. Endo: DM: He was dx with t2dm around 2013. He states that he did have diabetic Education and understands that he should be doing with his diet. His A1c is 6.0. His last A1c was 7.1. He is currently on metformin 1000 mg twice a day and Mounjaro 10 mg weekly. -He was restarted on farxiga 2 months ago. he states that he had stopped it due to a yeast infection and wanted to go back on it due to renal function worsening. CGM-in range 99%, 1% hyperglycemic, no lows. GMI 6.3%, average glucose 126 He states almost everyone on his father's side has t2dm with kidney problems. He has lost 25 lbs so far with the increased dosage of mounjaro. He is trying to Nephro: Sees Dr. Coleman. His last visit was in January. The microalbuminuria is worsening. He has a follow up in a couple weeks with him. CV: Blood pressure today in the office is 110/62. Patient is currently on valsartan 320 mg, amlodipine 10 mg and Bystolic 10 mg daily. Cholesterol is diet controlled. [facility] Medical History (Updated 04/17/24 @ 08:25 by Park Perkins PA-C) HTN (hypertension) Type 2 diabetes mellitus Surgical History No pertinent past surgical history Family History Mother High blood pressure Father Diabetes Kidney problem High blood pressure Social History Alcohol intake: never Patient Tobacco Use Status: Never used Tobacco Physical Exam Vital Signs: Last Vital Signs Pulse 87 04/17/24 08:03 BP 110/62 04/17/24 08:03 Pulse Ox 96 04/17/24 08:03 Oxygen Delivery Method Room Air 04/17/24 08:03 BMI result Body Mass Index 41.7 Const Orientation/consciousness: patient oriented x3 Neck Neck: Yes no lymphadenopathy Thyroid: Thyroid normal Carotids: no bruits Resp Auscultation: clear to auscultation bilaterally Cardio Rate: regular rate Rhythm: regular rhythm Heart sounds: S1 normal heart sound present and S2 normal heart sound present Peripheral pulses: dorsalis pedis present Neuro General: patient oriented x3, gait normal and no focal motor deficits Extrem Other: Monofilament sensation intact bilaterally. Vibratory sensation intact bilaterally. Skin intact. General: Yes normal to inspection Results Reviewed Results Reviewed: Laboratory Tests 04/15/24 04/15/24 08:26 08:29 Sodium 139 Potassium 4.6 Chloride 105 Carbon Dioxide 27 Anion Gap 12 BUN 34 H Creatinine 1.69 H Estimated GFR 44 Random Glucose 117 H Estimat Average Glucose 126 Hemoglobin A1c % 6.0 Triglycerides 199 H Cholesterol 150 LDL Cholesterol, Calc 78 HDL Cholesterol 33 L Urine Creatinine 142.30 Urine Microalbumin > 2000.0 Microalb/Creat Ratio 1405.4 H Assessment & Plan Assessment & Plan (1) Microalbuminuria due to type 2 diabetes mellitus: Code(s): E11.29 - Type 2 diabetes mellitus with other diabetic kidney complication; R80.9 - Proteinuria, unspecified Category: Medical Plan: continue farga increase mounjaro to 12.5 mg weekly d/c metformin (2) CKD (chronic kidney disease) stage 3, GFR 30-59 ml/min: Code(s): N18.30 - Chronic kidney disease, stage 3 unspecified Category: Medical Plan: has an appointment with nephro d/c metformin advised to avoid NSAIDs, maintain hydration discussed importance of dm and bp control (3) HTN (hypertension): Code(s): I10 - Essential (primary) hypertension Category: Medical Qualifiers: Hypertension type: primary hypertension Qualified Code(s): I10 - Essential (primary) hypertension Plan: wnl continue current plan Orders: Orders Lipid Panel Today E11.29 - Type 2 diabetes mellitus with other diabetic kidney complication, I10 - Essential (primary) hypertension, N18.30 - Chronic kidney disease, stage 3 unspecified, R80.9 - Proteinuria, unspecified B Type Natriuretic Peptide Today E11.29 - Type 2 diabetes mellitus with other diabetic kidney complication, I10 - Essential (primary) hypertension, N18.30 - Chronic kidney disease, stage 3 unspecified, R80.9 - Proteinuria, unspecified Comprehensive [place]. Panel Fast Today E11.29 - Type 2 diabetes mellitus with other diabetic kidney complication, I10 - Essential (primary) hypertension, N18.30 - Chronic kidney disease, stage 3 unspecified, R80.9 - Proteinuria, unspecified Hemoglobin A1c Today E11.29 - Type 2 diabetes mellitus with other diabetic kidney complication, I10 - Essential (primary) hypertension, N18.30 - Chronic kidney disease, stage 3 unspecified, R73.01 - Impaired fasting glucose, R80.9 - Proteinuria, unspecified Medications: New tirzepatide (Mounjaro) 12.5 mg (0.5 mL) subcut QWEEK 2 mL 5RF blood-glucose sensor (FreeStyle Jeannette 3 Plus Sensor device) Use daily As directed to monitor glucose 2 ea 5RF E08.29 - Diabetes mellitus due to underlying condition with other diabetic kidney complication, R80.9 - Proteinuria, unspecified, Z79.4 - FDC (current) use of insulin Discontinued blood-glucose sensor (FreeStyle Jeannette 3 Sensor device) Discontinued Reason: Doctor's Order As directed change every 14 days 2 ea 11RF tirzepatide (Mounjaro) Discontinued Reason: Doctor's Order 10 mg (0.5 mL) subcut QWEEK 2 mL 5RF Coding Level of Care Code Est Pt Level 4 (09113) Complex EM visit Add On G2211 Diagnoses Microalbuminuria due to type 2 diabetes mellitus E11.29; R80.9 CKD (chronic kidney disease) stage 3, GFR 30-59 ml/min N18.30 Primary hypertension I10 Hypertension type: primary hypertension
[2024-04-17 08:13] LABS: Glucose, Whole Blood 119 mg/dL (60-115)
== END 2024-04-17 08:31 | disposition home or self-care (01) ==
PROVIDERS: PCP Family Medicine; Visit Provider Physician Assistant
DX: E11.29 Type 2 diabetes mellitus with other diabetic kidney complication (principal); R80.9 Proteinuria, unspecified; N18.30 Chronic kidney disease, stage 3 unspecified; I10 Essential (primary) hypertension

== ENCOUNTER → 2024-04-17 07:57 | Outpatient (BNVA) | payer OTHER, SELFPAY | PROVIDERS: PCP Family Medicine; Visit Provider Physician Assistant | DX: R80.9 Proteinuria, unspecified (principal); I12.9 Hypertensive chronic kidney disease with stage 1 through stage 4 chronic kidney disease, or unspecified chronic kidney disease; E11.22 Type 2 diabetes mellitus with diabetic chronic kidney disease; N18.30 Chronic kidney disease, stage 3 unspecified | CPT/HCPCS: 82947; 99212 ==

== ENCOUNTER → 2024-04-30 07:51 | Outpatient (BNVA) | payer OTHER, SELFPAY | PROVIDERS: PCP Family Medicine; Visit Provider Physician Assistant Surgical ==

== ENCOUNTER 2024-05-08 08:07 | Outpatient (AMB) | payer OTHER, SELFPAY ==
--- OUTSIDE RECORDS SUMMARY | 2024-05-08 08:13 | XMS_ITS | Encounter Summary ---
Author Organization [facility] Address [address] [address] Phone Care Team Providers Care Adjunct Faculty For Medical Terminology Name Role Phone Martha Joyner MD Primary Care Provider [phone] Encounter Details Date Type Department Care Team (Late st Contact Info) Description 06/29/2021 Documentation Only [facility] [address] [place] [phone] Martha Joyner MD [address] [place] [address] [phone] Social History Tobacco Use Types Packs/Day Years Used Date Smoking Tobacco: Never Assessed Sex and Gender Information Value Date Recorded Sex Assigned at Not on file Legal Sex Male 11:06 AM EDT Gender Identity Not on file Sexual Orientation Not on file documented as of this encounter Plan of Treatment Upcoming Encounters Date Type Department Care Team (Late st Contact Info) Description 06/17/2024 3:45 PM EDT Office Visit [facility] [address] [place] [address] Jose Guadalupe Coleman MD [address] [place] [address] [place] [phone] documented as of this encounter Visit Diagnoses Not on filedocumented in this encounter Care Teams Adjunct Faculty For Medical Terminology Relationship Specialty Start Date End Date Martha Joyner MD PCP - General Family Medicine 06/29/21 documented as of this encounter
--- OUTSIDE RECORDS SUMMARY | 2024-05-08 08:13 | XMS_ITS | Encounter Summary ---
Author Organization [employer] Address [address] [facility] 7[address] [place] [address] Care Team Providers Care Escapement Maker Name Role Phone Martha Joyner MD Primary Care Provider Reason for Visit * Reason Onset Date Comments Nurse Triage 05/04/2024 Encounter Details Date Type Department Care Team (Late st Contact Info) Description 05/04/2024 Telephone [facility] [address] [place] [address] Martha Jonyer MD [address] [place] [address] Nurse Triage Social History Tobacco Use Types [...] encounter Miscellaneous Notes * Telephone Encounter - Nora Russell RN - 05/04/2024 11:08 AM EST No home inspector needed as this publicity writer speaks Persian. Call returned to Edd Mendieta to triage below. Reports having right heel pain x 1 month. Per pt pain slowly getting worse. No injury. No swelling, redness rash or bruising. Pt endorses limp with gait. Pt advised of disposition, agrees to sick on site with team provider as PCP not in office. Reviewed home care advise, ER precautions an d reasons to call back. Protocol Used: Foot Pain (Adult) Protocol-Based Disposition: See in Office or Video Visit within 3 Days Future Appointments Date Time Provider Department Center 05/07/2024 8:30 AM Adriane Schultz MD [facility] 07/17/2024 8:00 AM Harvinder Newberry [facility] Insurance verified as active per [facility]. Video visit offer not recorded Positive Triage Question: * Moderate pain (e.g., interferes with normal activities, limping) and present > 3 days * All higher-acuity triage questions were negative Care Advice Discussed: * Foot Pain - Aggravating Factors * Reasons To Call Back - Swelling, redness, or fever occur - Severe pain not relieved by pain medicine - You become worse * Telephone Encounter - Jeromy Valero - 05/04/2024 10:15 AM EST Symptom: Foot or Ankle Pain - Not From Injury Outcome: Schedule an urgent appointment (within 1 hour) or talk to a nurse or provider soon Reason: Severe pain now The caller accepted this outcome. Duration 1x month Pt looking to get evaluated and get a letter stating that he is able to wear sneakers due to his foot pains documented in this encounter Plan of Treatment Upcoming Encounters Date Type Department Care Team (Late st Contact Info) Description 05/18/2024 8:30 AM EDT Office Visit [facility] MED & PEDS [address] [place] [address] Adriane Schultz MD [address] [place] [address] 07/17/2024 8:00 AM EDT Office Visit [facility] ADULT DENTAL [address] [place] [address] Harvinder Newberry documented as of this encounter Visit Diagnoses Not on filedocumented in this encounter Additional Health Concerns Assessment Noted Time PHQ-9 Depression Total Score: 19 024 3:19 PM EDT documented as of this encounter Care Teams Escapement Maker Relationship Specialty Start Date End Date Martha Joyner MD [address] [place] [phone] PCP - General Family Medicine 02/22/21 Endo [facility] Nurse Practitioner Endocrinology 01/08/24 documented as of this encounter
--- OUTSIDE RECORDS SUMMARY | 2024-05-08 08:13 | XMS_ITS | Encounter Summary ---
Author Organization [facility] Address [address] [address] Phone Care Team Providers Care Grocery Buyer Name Role Phone Martha Joyner MD Primary Care Provider [phone] Encounter Details Date Type Department Care Team (Late st Contact Info) Description 04/28/2024 Office Communication [facility] [address] [place] [address] Tatianna Lao [address] [place] [address] Social History Tobacco Use Types Packs/Day Years [...] Visit [facility] [address] [place] [address] Jose Guadalupe Coleman MD [address] [place] [address] [place] [address] documented as of this encounter Visit Diagnoses Not on filedocumented in this encounter Care Teams Grocery Buyer Relationship Specialty Start Date End Date Martha Joyner MD PCP - General Family Medicine 06/29/21 documented as of this encounter
--- OUTSIDE RECORDS SUMMARY | 2024-05-08 08:13 | XMS_ITS | Encounter Summary ---
Author Organization [employer] Address [address] [facility] [address] [place] [address] Care Team Providers Care Vfx Artist Name Role Phone Martha Joyner MD Primary Care Provider [phone] Reason for Visit * Reason Comments Med Refill Encounter Details Date Type Department Care Team ([facility] Contact Info) Description 03/11/2023 Telephone [facility] MED & PEDS [address] [place], [place] [phone] Martha Joyner MD [address] [place] [address] Med Refill Social History Tobacco Use Types [...] note were not included. MD Deya Bryson [facility] Med & Peds Nurses Caller: Unspecified (Yesterday, 1:10 PM) Hi! Please could you follow up on the urology referral I placed, and if a appointment already givencould it be scheduled as soon as possible? TC placed to [facility] urology @ [phone] to see if patient has been seen [...] chart. TC placed to [facility] @ [phone] to request U/S report be faxed to [facility] @ [phone]. They faxed it. TC placed to patient to encourage him to make a sooner appointment with urology or at least keep his upcoming appointment. No answer. LM to call us back. Routing to Dr. Doran so he is aware and back to [facility] nurses so they can try again. Patient has f/u with PCP scheduled for 04/02/23. Notes added to appointment for that day. documented in this encounter Plan of Treatment Upcoming Encounters Date Type Department Care Team (Late st Contact Info) Description 05/18/2024 8:30 AM EDT Office Visit [facility] MED & PEDS [address] [place] [address] Adriane Schultz MD [address] [place] [address] 07/17/2024 8:00 AM EDT Office Visit [facility] ADULT DENTAL [address] [place] [address] Harvinder Newberry documented as of this encounter Visit Diagnoses Not on filedocumented in this encounter Additional Health Concerns Assessment Noted Time PHQ-9 Depression Total Score: 1 02/15/20 22 4:00 PM EST documented as of this encounter Care Teams Vfx Artist Relationship Specialty Start Date End Date Martha Joyner MD [address] [place] [address] PCP - General Family Medicine 02/22/21 [facility] Nurse Practitioner Endocrinology 01/08/24 documented as of this encounter
--- OUTSIDE RECORDS SUMMARY | 2024-05-08 08:13 | XMS_ITS ---
Signature Sodium 139 135 - 145 mmol/L [facility] Potassium 4.6 3.3 - 5.1 mmol/L [facility] Chloride 105 96 - 108 mmol/L [facility] Carbon Dioxide 27 22 - 29 mmol/L [facility] Anion Gap 12 12 - 20 [facility] Urea Nitrogen (BUN) 34(H) 9 - 16 mg/dL [facility] Creatinine, Serum 1.69(H) 0.5 - 1.4 mg/dL [facility] Estimated Glomerular Filt Rate 44 [facility] Comment:Chronic Kidney Disea se: Estimated GFR < 60 mL/min/1.08w0Sjjbyg Kidney Disease: Estimated GFR < 15 mL/min/1.73m2 Glucose 117(H) 60 - 115 mg/dL [facility] Calcium 9.1 8.4 - 10.2 mg/dL [facility] 04/15/2024 8:29 AM EST 04/15/2024 8:29 AM EST us Generic External Data Provider LAB BLOOD ORDERAB LES Final Result [facility] [address] [place] [phone] * (ABNORMAL) Albumin, Random Urine W/Creatinine (04/15/2024 8:26 AM EST) Creatinine, Urine 142.30 mg/dL [facility] Microalbumin Urine >2,000.0 mg/L [facility] Microalbum Creatinine Ratio Ur 1,405.4(H ) <30 ug/mg cr [facility] Comment:Albumin/Creatinine R atio Reference Ranges: Normal: < 30 ug/mg creatinine Microalbuminuria: 30 - 300 ug/mg creatinineClinical Albuminuria: > 300 ug/mg creatinine 04/15/2024 8:26 AM EST 04/15/2024 9:32 AM EST us Generic External Data Provider LAB URINE ORDERAB LES Final Result [facility] [address] [place] [phone] * (ABNORMAL) Sex Hormone Binding Globulin (SHBG) (02/13/2024 3:46 PM EST) Sex Hormone Binding Globulin 57(A) 10 - 50 nmol/L [facility] Comment:THIS TEST WAS PERFOR MED AT:[facility] [address] [address]HRHEZLISA FISHMAN MD 02/13/2024 3:46 PM EST 02/13/2024 3:46 PM EST Generic External Data Provider LAB BLOOD ORDERAB LES Final Result Performing Organization Address [facility] de Phone Number [facility] [address] [place] [phone] * (ABNORMAL) Estradiol (02/13/2024 3:46 PM EST) Estradiol Ultra Sensitive 86(A) < OR = 29 pg/mL [facility] Comment:This test was develo ped and its analytical performancecharacteristics have been determined by [employer].It has not been cleared or approved by FDA. This assay hasbeen validated pursuant to the CLIA regulations and is usedfor clinical purposes.THIS TEST WAS PERFORMED AT:[id number] [place] [address]PVRHCJOSÉ LUIS MOCTEZUMA MD,PHD,FRANK 02/13/2024 3:46 PM EST 02/13/2024 3:46 PM EST Generic External Data Provider LAB BLOOD ORDERAB LES Final Result Performing Organization Address [facility] Co de Phone Number [facility] [address] [place] [phone] * Testosterone, Total, males (Adult), IA (02/13/2024 3:46 PM EST) [facility] Testosterone, Total 734 250 - 1100 ng/dL [facility] Comment:For additional infor timo, please refer tohttp://education.[employer]/faq/[email or web address](This link is being provided for informational/educational purposes only.)This test was developed and its analytical performancecharacteristics have been determined by [employer] [place], [place]. It hasnot been cleared or approved by the U.S. Food and DrugAdministration. This assay has been validated pursuantto the CLIA regulations and is used for clinicalpurposes.THIS TEST WAS PERFORMED AT:[facility] [place] [address]FGDLPEOLAURY ELLIS MD,PHD 02/13/2024 3:46 PM EST 02/13/2024 3:46 PM EST Generic External Data Provider LAB BLOOD ORDERAB LES Final Result Performing Organization Address [facility]/ZIP Co de Phone Number [facility] [address] [place] [phone] * (ABNORMAL) LH (02/13/2024 3:46 PM EST) [facility] Lutenizing Hormone 12.1(A) 1.5 - 9.3 mIU/mL [facility] Comment:THIS TEST WAS PERFOR MED AT:[facility] [address] [address]UZLOWLISA FISHMAN MD 02/13/2024 3:46 PM EST 02/13/2024 3:46 PM EST Generic External Data Provider LAB BLOOD ORDERAB LES Final Result Performing Organization Address [facility]/ZIP Co de Phone Number [facility] [address] [place] [phone] * Albumin (02/13/2024 3:46 PM EST) Albumin Level 3.6 3.5 - 5.0 g/dL [facility] 02/13/2024 3:46 PM EST 02/13/2024 3:46 PM EST us Generic External Data Provider LAB BLOOD ORDERAB LES Final Result [facility] [address] [facility] [place] [phone] * US Scrotum (02/13/2024 3:21 PM EST) Anatomical Region Laterality Modality Body Ultrasound 02/13/2024 3:21 PM EST Narrative 03/31/2024 11:28 AM EST ? [facility] ?[address] ?[place] [address] ? Ultrasound Report ? Signed ? Patient: Edd Shaw ?MR#: [id number] ?? [id number] ? : 1980 ?Acct:[id number] ? Age/Sex: 43 / M ?ADM Date: 02/13/24 ? Loc: HO.LAB ? Attending Dr: Filemon Dennis MD ? Ordering Physician: Filemon Dennis MD ?? Date of Service: 02/13/24 ?? Procedure(s): US scrotum ?? Accession Number(s): [id number] ? cc: Filemon Dennis MD; Martha Joyner [...] DD/ 1521 ? TD/TT: 02/13/24 1532 ? Airways Operations Specialist: ? Procedure Note Ana M, Image - 03/31/2024 [place] [address] Ultrasound Report Signed Patient: Donal Shaw#: M [id number] : 1980Acct:[id number] Age/Sex: 43 / MADM Date: 02/13/24 Loc: HO.LAB Attending Dr: Filemon Dennis MD Ordering Physician: Filemon Dennis MD Date of Service: 02/13/24 Procedure(s): US scrotum Accession Number(s): [id number] cc: Filemon eDnnis MD; Martha Joyner MD EXAMINATION: US SCROTUM [...] by: Ady Spear MD 03/31/2024 11:26 AM [facility] Dictated By: Ady Separ MD Signed By: <Electronically signed by Ady Spear MD in OV> 03/31/24 1126 DD/ 1521 TD/TT: 02/13/24 1532 Airways Operations Specialist: [facility] External Provider IMG US PROCEDURES Final Result * Hepatitis C Ab (11/09/2022 9:00 AM EDT) Hepatitis C Antibody Nonreactive Nonreactive [facility] Comment:Antibodies to HCV no t detected; does not exclude early acuteHCV infection. Blood 11/09/2022 9:00 AM EDT 11/09/2022 2:35 PM EDT Martha Joyner MD LAB BLOOD ORDERABLES Final Re sult [facility] [address] [place] [phone] * HIV 1/2 ANTIGEN/ANTIBODY,FOURTH GENERATION W/RFL (05/26/2021 9:29 AM EDT) HIV-1/2 ANTIGEN AND ANTIBODIES, 4TH GENERATION W/ REFLEX NON-REACT TABITHA NON-REACT TABITHA [facility] Comment: HIV-1 antigen and HIV-1/HIV-2 [...] ? For additional information please refer to http://education.[employer]/faq/IZN409 (This link is being provided for informational/ educational purposes only.) ? The performance of this assay has not been clinically validated in patients less than 2 years old. ?? 05/26/2021 9:29 AM EDT us Martha Joyner MD LAB BLOOD ORDERABLES Final Re sult [facility] [address] from Last 3 Months or Most Recently Relevant to Health Maintenance Insurance [facility] DENTAL - HSN PARTIAL (MEDICAID) [address] [place] Care Teams Adjunct Professor Relationship Specialty Start Date End Date Martha Joyner MD [address] [place] [address] PCP - General Family Medicine 02/22/21 Endo [facility] Nurse Practitioner Endocrinology 01/08/24
--- OUTSIDE RECORDS SUMMARY | 2024-05-08 08:13 | XMS_ITS | Encounter Summary ---
Author Organization [employer] Address [address] [facility] 7t [place] [address] Care Team Providers Care Institution Director Name Role Phone Martha Joyner MD Primary Care Provider [phone] Reason for Visit * Reason Onset Date Comments Nurse Triage 11/20/2023 Encounter Details Date Type Department Care Team ([facility] st Contact Info) Description 11/20/2023 Telephone [facility] MEDICINE [address] [place] [address] Martha Joyner MD [address] [place] [address] Nurse Triage Social History Tobacco Use Types [...] didn't answer. Left voice message to call [facility] triage line at [phone]. * Telephone Encounter - Rangel Razo [...] Description 05/18/2024 8:30 AM EDT Office Visit [facility] MED & PEDS [address] [place] [address] Adriane Schultz MD [address] [place] [address] 07/17/2024 8:00 AM EDT Office Visit [facility] ADULT DENTAL [address] [place] [address] Harvinder Newberry documented as of this encounter Visit Diagnoses Not on filedocumented in this encounter Additional Health Concerns Assessment Noted Time PHQ-9 Depression Total Score: 19 024 3:19 PM EDT documented as of this encounter Care Teams Institution Director Relationship Specialty Start Date End Date Martha Joyner MD [address] [place] [address] PCP - General Family Medicine 02/22/21 [facility] Nurse Practitioner Endocrinology 01/08/24 documented as of this encounter
--- OUTSIDE RECORDS SUMMARY | 2024-05-08 08:13 | XMS_ITS | Encounter Summary ---
Author Organization [employer] Address 75 [facility] 7t [place] [address] Care Team Providers Care Particle Board Supervisor Name Role Phone Martha Joyner MD Primary Care Provider [phone] Reason for Visit * Reason Comments Filling Encounter Details Date Type Department Care Team ([facility] Contact Info) Description 04/22/2024 8:00 AM EST Office Visit [facility] ADULT DENTAL [address] [place] [address] Roxi Reagan DMD Social History Tobacco Use Types Packs/Day Years Used Date Smoking Tobacco: Never Passive Smoke Exposure: Never Smokeless Tobacco: Never Alcohol Use Standard Drinks/Week Comments Never 0 (1 standard drink = 0.6 oz pur e alcohol) Depression Answer Date Recorded Patient Health Questionnaire-9 Score 09/12/2023 Patient Health Questionnaire-9 Score 19 09/12/2023 [...] Sign Reading Time Taken Comments Blood Pressure 130/100 04/22/2024 8:19 AM EST Pulse - - Temperature - - Respiratory Rate - - Oxygen Saturation - - Inhaled Oxygen Concentration - - Weight - - Height - - Body Mass Index - - documented in this encounter Progress Notes * Roxi Reagan DMD - 04/22/2024 8:00 AM EST Dental procedures in this visit D2140 - AMALGAM - 1 SURF, PRIMARY OR PERMANENT 2 O (Completed) Service provider: Roxi Reagan DMD Billing provider: Valerie Le DDS [id number] - CASE PRESENTATION, DETAILED AND EXTENSIVE TREATMENT PLANNING (Completed) Service provider: Roxi Reagan DMD Billing provider: Valerie Le DDS Patient ID: Edd Mendieta is a 43 y.o. male. Time Out: Date: 04/22/2024 Location: [facility] Tooth: #2 Procedure: Orthodoxy Verified the above with patient, medical administrative assistant, and provider. Confirmed via patient's chart, intraorally and by radiographs. Lens Grinder Apprentice: not applicable Amalgam amish done on #[address] Roxi Reagan DMD Risk, benefits, and alternatives discussed with the patient. CONSENT FORM INITIALED & SIGNED BY THE PATIENT AND COUNTERSIGNED BY Dr. Roxi Reagan DMD Medical history: Reviewed in EHR Vitals: Blood pressure (!) 130/100. Allergies: Reviewed in EHR Medications: Reviewed in EHR - LA: 20% topical benzocaine; local infiltration with 1 carpule 3% carbocaine/mepivacaine - Decay removed. - MB pulp exposure. Patient informed of exposure and potential need for endodontic therapy in the future. Patient understands and accepts recommendations. - Dycal: Placed on MB aspect of prep - Base: Limelite and light cured. - Amalgam amish alloy type placed. - Anatomy and margins adjusted. - Occlusion checked with articulating paper. - Necessary reductions made. - Post op instructions given. Requested patient take Acetaminophen for the next few days. - Patient made aware possible post op sensitivity. All patient questions answered. Patient comfortable upon dismissal. NV: Recare Provider: Dr. Roxi Reagan DMD Supervisor Locomotive: Ping Anglin Supervising Dentist: Dr. Valerie Le DDS * Valerie Le DDS - 04/22/2024 8:00 AM EST I have reviewed the documentation and dental procedures completed by the rendering provider, Roxi Reagan DMD, and approve their chart entries for this visit. DANDRE Johns DDS documented in this encounter Plan of Treatment Upcoming Encounters Date Type Department Care Team (Late st Contact Info) Description 05/18/2024 8:30 AM EDT Office Visit [facility] MED & PEDS [address] [place] [address] Adriane Schultz MD [address] [place] [address] 07/17/2024 8:00 AM EDT Office Visit [facility] ADULT DENTAL [address] [place] [address] Harvinder Newberry Scheduled Orders Name Type Priority Associated Diagnoses Orde r Schedule PERIODIC ORAL EVALUATION - ESTABLISHED PATIENT Dental Routine 1 Occurren veronica starting 04/22/2024 PROPHYLAXIS - ADULT Dental Routine 1 Occ urrences starting 04/22/2024 documented as of this encounter Procedures Procedure Name Priority Date/Time Associated Diagnosis Comments CASE PRESENTATION, DETAILED AND EXTENSIVE TREATMENT PLANNING Routine 04/22/2024 8:00 AM EST 2 O AMALGAM - 1 SURF, PRIMARY OR PERMANENT Routine 04/22/2024 8:00 AM EST documented in this encounter Visit Diagnoses Not on filedocumented in this encounter Additional Health Concerns Assessment Noted Time PHQ-9 Depression Total Score: 19 024 3:19 PM EDT documented as of this encounter Care Teams Particle Board Supervisor Relationship Specialty Start Date End Date Martha Joyner MD [address] [place] [address] PCP - General Family Medicine 02/22/21 [facility] Nurse Practitioner Endocrinology 01/08/24 documented as of this encounter
--- OUTSIDE RECORDS SUMMARY | 2024-05-08 08:13 | XMS_ITS | Encounter Summary ---
Author Organization [employer] Address 75 [facility] 7t [place] [address] Care Team Providers Care Cut Roll Machine Operator Name Role Phone Martha Joyner MD Primary Care Provider [phone] Reason for Visit * Reason Onset Date Comments Med Refill 03/16/2024 Encounter Details Date Type Department Care Team ([facility] st Contact Info) Description 03/16/[address] [facility] MEDICINE [address] [place] [address] Martha Joyner MD [address] [place] [address] Med Refill Social History Tobacco Use Types [...] 6.25 MG tablet To be sent to: [facility] documented in this encounter Plan of Treatment Upcoming Encounters Date Type Department Care Team (Late st Contact Info) Description 05/18/2024 8:30 AM EDT Office Visit [facility] MED & PEDS [address] [place] [address] Adriane Schultz MD [address] [place] [address] 07/17/2024 8:00 AM EDT Office Visit [facility] ADULT DENTAL [address] [place] [address] Harvinder Newberry documented as of this encounter Visit Diagnoses Not on filedocumented in this encounter Additional Health Concerns Assessment Noted Time PHQ-9 Depression Total Score: 19 024 3:19 PM EDT documented as of this encounter Care Teams Cut Roll Machine Operator Relationship Specialty Start Date End Date Martha Joyner MD [address] [place] [address] PCP - General Family Medicine 02/22/21 [facility] Nurse Practitioner Endocrinology 01/08/24 documented as of this encounter
--- OUTSIDE RECORDS SUMMARY | 2024-05-08 08:13 | XMS_ITS | Encounter Summary ---
Author Organization [employer] Address 75 [facility] 7t [place] [address] Care Team Providers Care Internal Wholesaler Name Role Phone Martha Joyner MD Primary Care Provider Encounter Details Date Type Department Care Team ([facility] st Contact Info) Description 05/06/2024 Telephone [facility] CHC MED & PEDS [address] [place], [place] [phone] Martha Joyner MD [address] [place], [place] [phone] Social History Tobacco Use Types Packs/Day Years [...] encounter Miscellaneous Notes * Telephone Encounter - Jaida Jean RN - 05/07/2024 9:41 AM EST TC placed to pt to reschedule visit from 05/07/24. Pt states he has always had a pain in his right heel, but over the last 2-3 weeks, the pain has increased. Pt denies wound, redness, heat, or swelling. Pt states there is always a constant throbbing, but at times the pt is not able to walk because ofthe pain. Pt states the inability to walk because of the pain is intermittent and does not happen ev caio day. Pt states the pain is a a 8-9/10 when it is bad. Pt rescheduled for visit on 05/18/24 at 8:[address] Schultz. Advised pt if pain worsens to come to same day care. Pt agreeable to appointmentand denies questions at this time. * Telephone Encounter - Joanne Story - 05/06/2024 4:22 PM EST Tc from pt returning call. Contact pt at [phone] * Telephone Encounter - Adeola Lewis RN - 05/06/2024 3:13 PM EST Called patient to reschedule appointment for 05/07/24 d/t Dr. Schultz not being in the office. Instructed patient to call office to reschedule appointment. documented in this encounter Plan of Treatment Upcoming Encounters Date Type Department Care Team (Late st Contact Info) Description 05/18/2024 8:30 AM EDT Office Visit [facility] MED & PEDS [address] [place] [address] Adriane Schultz MD [address] [place] [address] 07/17/2024 8:00 AM EDT Office Visit [facility] ADULT DENTAL [address] [place] [address] Harvinder Newberry documented as of this encounter Visit Diagnoses Not on filedocumented in this encounter Additional Health Concerns Assessment Noted Time PHQ-9 Depression Total Score: 19 024 3:19 PM EDT documented as of this encounter Care Teams Internal Wholesaler Relationship Specialty Start Date End Date Martha Joyner MD [address] [place] [address] PCP - General Family Medicine 02/22/21 [facility] Nurse Practitioner Endocrinology 01/08/24 documented as of this encounter
--- OUTSIDE RECORDS SUMMARY | 2024-05-08 08:13 | XMS_ITS | Encounter Summary ---
Author Organization [employer] Address 75 [facility] 7t [place] [address] Care Team Providers Care Scheduling Specialist Name Role Phone Martha Joyner MD Primary Care Provider [phone] Encounter Details Date Type Department Care Team (Late st Contact Info) Description 04/17/2024 Orders Only GENERIC EXTERNAL DATA DEPARTMENT Provider, [...] Description 05/18/2024 8:30 AM EDT Office Visit [facility] MED & PEDS [address] [place] [address] Adriane Schultz MD [address] [place] [address] 07/17/2024 8:00 AM EDT Office Visit [facility] ADULT DENTAL [address] [place] [address] Harvinder Newberry documented as of this encounter Procedures Procedure Name Priority Date/Time Associated Diagnosis Comments GLUCOSE, WHOLE BLOOD Routine 04/17/2024 8:10 AM EST documented in this encounter Results * (ABNORMAL) Glucose, Whole Blood (04/17/2024 8:10 AM EST) Glucose, Whole Blood 119(H) 60 - 115 mg/dL [facility] Comment:METER #: [id number] Testing performed in the Endocrinology Department [address] , [address], [facility]. 04/17/2024 8:10 AM EST 04/17/2024 8:13 AM EST us Generic External Data Provider LAB BLOOD ORDERAB LES Final Result [facility] [address] [place] [address] [phone] documented in this encounter Visit Diagnoses Not on filedocumented in this encounter Additional Health Concerns Assessment Noted Time PHQ-9 Depression Total Score: 19 024 3:19 PM EDT documented as of this encounter Care Teams Scheduling Specialist Relationship Specialty Start Date End Date Martha Joyner MD [address] [place] [address] PCP - General Family Medicine 02/22/21 [facility] Nurse Practitioner Endocrinology 01/08/24 documented as of this encounter
--- OUTSIDE RECORDS SUMMARY | 2024-05-08 08:13 | XMS_ITS | Encounter Summary ---
Author Organization [employer] Address 75 [facility] 7t [place] [address] Care Team Providers Care Mate Relief Name Role Phone Martha Joyner MD Primary Care Provider [phone] Reason for Visit * Reason Comments fu labs results Encounter Details Date Type Department Care Team ([facility] Contact Info) Description 04/16/2024 2:30 PM EST Office Visit [facility] CHC MED & PEDS [address] [place] [address] Anson De Leon MD [address] [place] [address] Stage 3b chronic kidney disease (CMS/HCC) (Primary Dx); Type 2 diabetes mellitus with hyperglycemia, without long-term current use of insulin (CMS/HCC); Congestion of nasal sinus; Albuminuria Social History Tobacco Use Types Packs/Day Years Used Date Smoking Tobacco: Never Passive Smoke Exposure: Never Smokeless Tobacco: Never Tobacco Cessation:Counseling Given: Not Answered Alcohol Use Standard Drinks/Week Comments Never 0 (1 standard drink = 0.6 oz pur e alcohol) Depression Answer Date Recorded Patient Health Questionnaire-9 Score 19 09/12/2023 Patient Health Questionnaire-9 Score 09/12/2023 Last [...] 2:26 PM EST documented in this encounter Progress Notes * Anson Stapleton MD - 04/16/2024 2:30 PM EST Subjective Patient ID: Edd Mendieta is a 43 y.o. male who presents for fu labs results. Diabetes He presents for his follow-up diabetic visit. He has type 2 diabetes mellitus. Pertinent negatives for diabetes include no fatigue, no foot paresthesias, no foot ulcerations, no polydipsia, no polyphagia and no polyuria. Review of Systems Constitutional: Negative for fatigue. Endocrine: Negative for polydipsia, polyphagia and polyuria. Objective Physical Exam Constitutional: Appearance: Normal appearance. Cardiovascular: Rate and Rhythm: Normal rate and regular rhythm. Heart sounds: No murmur heard. Pulmonary: Effort: Pulmonary effort is normal. No respiratory distress. Breath sounds: Normal breath sounds. No stridor. No wheezing or rhonchi. Neurological: General: No focal deficit present. Mental Status: He is alert and oriented to person, place, and time. Psychiatric: Mood and Affect: Mood normal. Behavior: Behavior normal. Assessment/Plan Problem List Items Addressed This Visit Type 2 diabetes mellitus with hyperglycemia, without long-term current use of insulin ([facility]) Relevant Orders POCT Glucose (Completed) Other Visit Diagnoses Stage 3b chronic kidney disease ([facility]) - Primary Will restart SGLT2, reinforced importance of weight loss, low sdium diet, adequate blood pressure control, follow up [facility] nephrology, Congestion of nasal sinus Relevant Orders POCT Rapid Influenza A OSOM (Completed) POCT Rapid Influenza B OSOM (Completed) POCT Rapid Covid-19 BinaxNOW (Completed) Albuminuria documented in this encounter Plan of Treatment Upcoming Encounters Date Type Department Care Team (Late st Contact Info) Description 05/18/2024 8:30 AM EDT Office Visit [facility] MED & PEDS [address] [place] [address] Adriane Schultz MD [address] [place] [address] 07/17/2024 8:00 AM EDT Office Visit [facility] ADULT DENTAL [address] [place] [address] Harvinder Newberry documented as of this encounter [...] hyperglycemia, without long-term current use of insulin ([facility]) documented in this encounter Results * POCT Rapid Covid-19 BinaxNOW (04/16/2024 3:14 PM EST) [facility] Rapid COVID Ag Negative QC Media Lot # [id number] Lot# Expiration Date 7,026 Swab 04/16/2024 3:14 PM EST Anson Stapleton MD POINT OF CARE TEST ENTER/EDIT ORDERABLES Final Result * POCT Rapid Influenza B OSOM (04/16/2024 3:13 PM EST) [facility] Rapid Influenza B Ag Negative Negative, Indeterminate QC Media Lot # [id number] Lot# Expiration Date ,025 Swab 04/16/2024 3:13 PM EST Result [facility] Anson Stapleton MD POINT OF CARE TEST ENTER/EDIT ORDERABLES Final Result * POCT Rapid Influenza A OSOM (04/16/2024 3:13 PM EST) [facility] Rapid Influenza A Ag Negative Negative, Indeterminate QC Media Lot # [id number] Lot# Expiration Date ,025 Swab Nasopharyngeal structure / Unknown 04/16/2024 3:13 PM EST Anson Stapleton MD POINT OF CARE TEST ENTER/EDIT ORDERABLES Final Result * POCT Glucose (04/16/2024 2:29 PM EST) [facility] Glucose Blood, POC 126 60 - 200 mg/dL QC Media Lot # [id number] Lot# Expiration Date ,025 Blood Capillary blood specimen / Unknown 04/16/2024 2:29 PM EST Anson Stapleton MD POINT OF CARE TEST ENTER/EDIT ORDERABLES Final Result documented in this encounter Visit Diagnoses Diagnosis Stage 3b chronic kidney disease ([facility])- Primary Type 2 diabetes mellitus with hyperglycemia, without long-term current use of insulin ([facility]) Congestion of nasal sinus Other diseases of nasal cavity and sinuses Albuminuria Proteinuria documented in this encounter Additional Health Concerns Assessment Noted Time PHQ-9 Depression Total Score: 19 024 3:19 PM EDT documented as of this encounter Care Teams Mate Relief Relationship Specialty Start Date End Date Martha Joyner MD [address] [place] [address] PCP - General Family Medicine 02/22/21 [facility] Nurse Practitioner Endocrinology 01/08/24 documented as of this encounter
--- OUTSIDE RECORDS SUMMARY | 2024-05-08 08:13 | XMS_ITS | Encounter Summary ---
Author Organization [employer] Address [address] [place] [address] 7t [place] [address] Care Team Providers Care Cloth Desizing Range Operator Chief Name Role Phone Martha Joyner MD Primary Care Provider [phone] Reason for Visit * Reason Comments Med Refill Encounter Details Date Type Department Care Team (Late Contact Info) Description 10/15/2022 Refill [facility] CHC MED & PEDS [address] [place] [address] Martha Joyner MD [address] [place] [address] Type 2 diabetes mellitus with hyperglycemia, without long-term current use of insulin ([facility]) Social History Tobacco Use Types Packs/Day Years [...] Department Care Team (Late Contact Info) Description 05/18/2024 8:30 AM EDT Office Visit [facility] CHC MED & PEDS [address] [place] [address] Adriane Schultz MD [address] [place] [address] 07/17/2024 8:00 AM EDT Office Visit [facility] CHC ADULT DENTAL [address] [place] [address] Harvinder Newberry documented as of this encounter Visit Diagnoses Diagnosis Type 2 diabetes mellitus with hyperglycemia, without long-term current use of insulin ([facility]) documented in this encounter Additional Health Concerns Assessment Noted Time PHQ-9 Depression Total Score: 1 02/15/20 22 4:00 PM EST documented as of this encounter Care Teams Cloth Desizing Range Operator Chief Relationship Specialty Start Date End Date Martha Joyner MD [address] [place] [address] PCP - General Family Medicine 02/22/21 [facility] Nurse Practitioner Endocrinology 01/08/24 documented as of this encounter
--- OUTSIDE RECORDS SUMMARY | 2024-05-08 08:13 | XMS_ITS | Encounter Summary ---
Author Organization [employer] Address 75 [facility] 7t [place] [address] Care Team Providers Care Cash Accountant Name Role Phone Martha Joyner MD Primary Care Provider Reason for Visit * Reason Comments Med Refill Encounter Details Date Type Department Care Team ([facility] Contact Info) Description 01/03/2023 Refill [facility] CHC MED & PEDS [address] [place], [place] [phone] Tereza Wagner MD [address] [place] [address] Social History Tobacco Use Types Packs/Day Years [...] Description 05/18/2024 8:30 AM EDT Office Visit [facility] MED & PEDS [address] [place] [address] Adriane Schultz MD [address] [place] [address] 07/17/2024 8:00 AM EDT Office Visit [facility] ADULT DENTAL [address] [place] [address] Harvinder Newberry documented as of this encounter Visit Diagnoses Not on filedocumented in this encounter Additional Health Concerns Assessment Noted Time PHQ-9 Depression Total Score: 1 02/15/20 22 4:00 PM EST documented as of this encounter Care Teams Cash Accountant Relationship Specialty Start Date End Date Martha Joyner MD [address] [place] [address] PCP - General Family Medicine 02/22/21 [facility] Nurse Practitioner Endocrinology 01/08/24 documented as of this encounter
--- OUTSIDE RECORDS SUMMARY | 2024-05-08 08:13 | XMS_ITS | Clinical Summary ---
Author Organization [facility], Address [address] [place] [address] [place] [address] Phone Care Team Providers Care Layboy Operator Name Role Phone Martha Joyner MD Primary Care Provider [phone] Allergies Active Allergy Reactions Criticality Noted Date [...] DAILY UNTIL FINISHED 3 Active TechLite Pen Cohocton 31G X 5 MM misc USE DAILY [...] (FreeStyle Jeannette 3 Sensor) [facility] USE DIRECTED TO TEST BLOOD [...] Encounters Date Type Department Care Team Description 04/30/2024 Orders Only [facility] [place] [address] Jose Guadalupe Coleman MD 04/28/2024 Office Communication [facility], [address] [place] [address] Tatianna Lao from Last 3 Months Social History Tobacco [...] Mass Index - - Plan of Treatment Upcoming Encounters Date Type Department Care Team (Late st Contact Info) Description 06/17/2024 3:45 PM EDT Office Visit [facility], [address] [place] [address] Jose Guadalupe Coleman MD [address] [place] [address] [place] [address] Health Maintenance Due Date Last Done Comments [...] Influenza Vaccine (#1) 2023 Diabetes: Hemoglobin A1C 07/13/2024 025, 08/05/2023, 10/01/2022, Additional history exists Procedures Procedure Name Priority Date/Time Associated Diagnosis Comments PROTEIN / CREATININE RATIO, URINE Routine 04/30/2024 7:23 AM EST RENAL FUNCTION PANEL Routine 04/30/2024 7:23 AM EST URINALYSIS WITH MICROSCOPIC Routine 04/30/2024 7:23 AM EST MICROSCOPIC EXAMINATION - DO NOT USE Routine 04/30/2024 7:23 AM EST from Last 3 Months Results * Microscopic Examination (04/30/2024 7:23 AM EST) WBC, Urine 0-5 0 - 5 /hpf [facility] RBC, Urine 0-2 0 - 2 /hpf [facility] Squamous Epithelial, Urine None seen 0 - 10 /hpf [facility] Casts None seen None seen /lpf [facility] Bacteria, Urine None seen None seen/Few [facility] 04/30/2024 7:23 AM EST 04/30/2024 Jose Guadalupe Coleman MD LAB MICROBIOLOGY - GENERAL ORDERABLES Final Result Performing Organization Address City/[facility]/ZIP Co de Phone Number [facility] [address] [place] [address] * (ABNORMAL) Protein, Total, Random Urine w/Creatinine (Protein/Creat Ratio) (04/30/2024 7:23 AM EST) Creatinine, Ur 169.1 Not Estab. mg/dL [facility] Protein, Ur 454.4 Not Estab. mg/dL [facility] Comment: Results confirmed on dilution. Urine Protein/Creati nine Ratio 2,687(H) 0 - 200 mg/g creat [facility] 04/30/2024 7:23 AM EST 04/30/2024 Jose Guadalupe Coleman MD LAB URINE ORDERABLES Final Result Performing Organization Address City/[facility]/ZIP Co de Phone Number [facility] [address] [place] [address] * (ABNORMAL) Urinalysis with microscopic (04/30/2024 7:23 AM EST) Specific [place], Urine 1.029 1.005 - 1.030 [facility] [phone] pH Urine 6.0 5.0 - 7.5 [facility] Color, Urine Yellow Yellow [facility] [phone] Appearance Urine Clear Clear [facility] [phone] WBC Esterase Urine Negative Negative [facility] [phone] Protein, Ur 3+(A) Negative/Tra ce [facility] Glucose, Ur 3+(A) Negative [facility] Ketones, Urine Negative Negative [facility] Blood Urine Negative Negative [facility] [phone] Bilirubin Urine Negative Negative [facility] [phone] Urobilinogen Urine 0.2 0.2 - 1.0 mg/dL [facility] Nitrite, Urine Negative Negative [facility] Microscopic Examination See below: [facility] Comment:Microscopic was gloria cated and was performed. 04/30/2024 7:23 AM EST 04/30/2024 us Jose Guadalupe Coleman MD LAB URINE ORDERABLES Final Result [facility] [address] [place] [address] * (ABNORMAL) Renal Function Panel (04/30/2024 7:23 AM EST) Glucose 125(H) 70 - 99 mg/dL [facility] BUN 21 6 - 24 mg/dL [facility] Creatinine 1.49(H) 0.76 - 1.27 mg/dL [facility] eGFR CKD-EPI CR 2020 59(L) >59 mL/min/1.7 3 [facility] BUN/Creatinine Ratio 14 9 - 20 [facility] Sodium 139 134 - 144 mmol/L [facility] Potassium 4.4 3.5 - 5.2 mmol/L [facility] Chloride 104 96 - 106 mmol/L [facility] Bicarbonate (CO2) 20 20 - 29 mmol/L [facility] Calcium 9.2 8.7 - 10.2 mg/dL [facility] Albumin 3.8(L) 4.1 - 5.1 g/dL [facility] Phosphorus 3.6 2.8 - 4.1 mg/dL [facility] 04/30/2024 7:23 AM EST 04/30/2024 us Jose Guadalupe Coleman MD LAB BLOOD ORDERABLES Final Result [facility] [address] [place] [address] from Last 3 Months Insurance [facility] ([id number]) Care Teams Layboy Operator Relationship Specialty Start Date End Date Martha Joyner MD PCP - General Family Medicine 06/29/21
--- OUTSIDE RECORDS SUMMARY | 2024-05-08 08:14 | XMS_ITS | Encounter Summary ---
Author Organization [facility] Address [address] [address] Phone Care Team Providers Care Ground Support Agent Name Role Phone Martha Joyner MD Primary Care Provider [phone] Encounter Details Date Type Department Care Team (Late st Contact Info) Description 06/29/2021 Documentation Only [facility] [address] [place] [phone] Martha Joyner MD [address] [place] [address] [phone] Social History Tobacco Use Types Packs/Day Years [...] Visit [facility] [address] [place] [address] Jose Guadalupe Coleman MD [address] [place] [address] [place] [phone] documented as of this encounter Visit Diagnoses Not on filedocumented in this encounter Care Teams Ground Support Agent Relationship Specialty Start Date End Date Martha Joyner MD PCP - General Family Medicine 06/29/21 documented as of this encounter
--- OUTSIDE RECORDS SUMMARY | 2024-05-08 08:14 | XMS_ITS | Encounter Summary ---
Author Organization [facility] Address [address] [address] Phone Care Team Providers Care Yard Truck Driver Name Role Phone Martha Joyner MD Primary Care Provider [phone] Encounter Details Date Type Department Care Team (Late st Contact Info) Description 06/29/2021 Documentation Only [facility] [address] [place] [phone] Martha Joyner MD [address] [place] [address] [phone] Social History Tobacco Use Types Packs/Day Years [...] Visit [facility] [address] [place] [address] Jose Guadalupe Coleman MD [address] [place] [address] [place] [phone] documented as of this encounter Visit Diagnoses Not on filedocumented in this encounter Care Teams Yard Truck Driver Relationship Specialty Start Date End Date Martha Joyner MD PCP - General Family Medicine 06/29/21 documented as of this encounter
--- OUTSIDE RECORDS SUMMARY | 2024-05-08 08:14 | XMS_ITS | Encounter Summary ---
Author Organization [employer] Address [address] [facility] 7t [place] [address] Care Team Providers Care Fermenting Cellars Receiver Name Role Phone Martha Joyner MD Primary Care Provider [phone] Encounter Details Date Type Department Care Team (Late st Contact Info) Description 04/16/2024 Telephone [facility] MED[facility]INE [address] [place], [place] [phone] Adeola Velásquez, CLEMENCIA [address] [place], [place] [phone] Social History Tobacco Use Types Packs/Day Years [...] pt who agrees to appt today with [facility] provider for f/u labs. * Telephone Encounter [...] Description 05/18/2024 8:30 AM EDT Office Visit [facility] MED & PEDS [address] [place] [address] Adriane Schultz MD [address] [place] [address] 07/17/2024 8:00 AM EDT Office Visit [facility] ADULT DENTAL [address] [place] [address] Harvinder Newberry documented as of this encounter Visit Diagnoses Not on filedocumented in this encounter Additional Health Concerns Assessment Noted Time PHQ-9 Depression Total Score: 19 024 3:19 PM EDT documented as of this encounter Care Teams Fermenting Cellars Receiver Relationship Specialty Start Date End Date Martha Joyner MD [address] [place] [address] PCP - General Family Medicine 02/22/21 [facility] Nurse Practitioner Endocrinology 01/08/24 documented as of this encounter
--- OUTSIDE RECORDS SUMMARY | 2024-05-08 08:14 | XMS_ITS | Encounter Summary ---
Author Organization [employer] Address [address] [facility] 7t [place] [address] Care Team Providers Care Tooth Clerk Name Role Phone Martha Joyner MD Primary Care Provider [phone] Reason for Visit * Reason Comments Med Refill Encounter Details Date Type Department Care Team ([facility] st Contact Info) Description 05/30/2023 Refill [facility] CHC MED & PEDS [address] [place], [place] [phone] Martha Joyner MD [address] [place] [address] Primary hypertension Social History Tobacco Use Types [...] [facility] MED & [facility]ED[facility] [address] [place] [address] Adriane Schultz MD [address] [place] [address] 07/17/2024 8:00 AM EDT Office Visit [facility] ADULT DENTAL [address] [place] [address] Harvinder Newberry documented as of this encounter Visit Diagnoses Diagnosis Primary hypertension Unspecified essential hypertension documented in this encounter Additional Health Concerns Assessment Noted Time PHQ-9 Depression Total Score: 1 02/15/20 22 4:00 PM EST documented as of this encounter Care Teams Tooth Clerk Relationship Specialty Start Date End Date Martha Joyner MD [address] [place] [address] PCP - General Family Medicine 02/22/21 Endo [facility] Nurse Practitioner Endocrinology 01/08/24 documented as of this encounter
--- OUTSIDE RECORDS SUMMARY | 2024-05-08 08:14 | XMS_ITS | Encounter Summary ---
Author Organization [employer] Address [address] [facility] [address] 7[address] [place] [address] Care Team Providers Care Relief Map Modeler Name Role Phone Martha Joyner MD Primary Care Provider [phone] Encounter Details Date Type Department Care Team (Late st Contact Info) Description 03/13/2023 Telephone [facility] MEDICINE [address] [place] [address] Martha Joyner MD [address] [place], [place] [phone] Social History Tobacco Use Types Packs/Day Years [...] indicated. Report faxed at this time to [phone] documented in this encounter Plan of Treatment Upcoming Encounters Date Type Department Care Team (Late st Contact Info) Description 05/18/2024 8:30 AM EDT Office Visit [facility] MED & PEDS [address] [place] [address] Adriane Schultz MD [address] [place] [address] 07/17/2024 8:00 AM EDT Office Visit [facility] ADULT DENTAL [address] [place] [address] Harvinder Newberry documented as of this encounter Visit Diagnoses Not on filedocumented in this encounter Additional Health Concerns Assessment Noted Time PHQ-9 Depression Total Score: 1 02/15/20 22 4:00 PM EST documented as of this encounter Care Teams Relief Map Modeler Relationship Specialty Start Date End Date Martha Joyner MD [address] [place] [address] PCP - General Family Medicine 02/22/21 Endo [facility] Nurse Practitioner Endocrinology 01/08/24 documented as of this encounter
--- OUTSIDE RECORDS SUMMARY | 2024-05-08 08:14 | XMS_ITS | Encounter Summary ---
Author Organization [employer] Address [address] [facility] 7t [place] [address] Care Team Providers Care Optical Laboratory Manager Name Role Phone Martha Joyner MD Primary Care Provider [phone] Encounter Details Date Type Department Care Team [...] Description 05/18/2024 8:30 AM EDT Office Visit [facility] MED & PEDS [address] [place] [address] Adriane Schultz MD [address] [place] [address] 07/17/2024 8:00 AM EDT Office Visit [facility] ADULT DENTAL [address] [place] [address] Harvinder Newberry documented as of this encounter [...] 8:29 AM EST) Triglycerides 199(H) <150 mg/dL [facility] Comment:Desirable Triglyceri de: less than 150 mg/dLBorderline High Triglyceride 150-199 mg/dLHigh Triglyceride: 200-499 mg/dLVery High Triglyceride: greater than or equal to 5OO mg/dL Cholesterol 150 <200 mg/dL [facility] Comment:Desirable Cholestero l: less than 200 mg/dLBorderline High Cholesterol: 200-239 mg/dLHigh Cholesterol: greater than 239 mg/dL LDL Cholesterol Calculated 78 <100 mg/dL [facility] Comment:Desirable LDL: less than 100 mg/dLNear Optimal/Above Optimal LDL: 110- 129 mg/dLBorderline High LDL: 130-159 mg/dLHigh LDL: 160-189 mg/dLVery High LDL: greater than or equal to 190 mg/dL HDL Cholesterol 33(L) >40 mg/dL [facility] Comment:Desirable HDL: great er than 40 mg/dL Note: This HDL assay may give artificially low results in patients with liver disease. 04/15/2024 8:29 AM EST 04/15/2024 8:29 AM EST us Generic External Data Provider LAB BLOOD ORDERAB LES Final Result [facility] [address] [place] [phone] * (ABNORMAL) Basic Metabolic Panel (04/15/2024 8:29 AM EST) Sodium 139 135 - 145 mmol/L [facility] Potassium 4.6 3.3 - 5.1 mmol/L [facility] Chloride 105 96 - 108 mmol/L [facility] Carbon Dioxide 27 22 - 29 mmol/L [facility] Anion Gap 12 12 - 20 [facility] Urea Nitrogen (BUN) 34(H) 9 - 16 mg/dL [facility] Creatinine, Serum 1.69(H) 0.5 - 1.4 mg/dL [facility] Estimated Glomerular Filt Rate 44 [facility] Comment:Chronic Kidney Disea se: Estimated GFR < 60 mL/min/1.24g5Rvohex Kidney Disease: Estimated GFR < 15 mL/min/1.73m2 Glucose 117(H) 60 - 115 mg/dL [facility] Calcium 9.1 8.4 - 10.2 mg/dL [facility] 04/15/2024 8:29 AM EST 04/15/2024 8:29 AM EST us Generic External Data Provider LAB BLOOD ORDERAB LES Final Result Performing Organization Address [facility] Co de Phone Number [facility] [address] [place] [phone] * Hemoglobin A1c (04/15/2024 8:29 AM EST) Hemoglobin A1c 6.0 <6.0 % [facility] Comment:Hemoglobin A1C Refer ence Range Adults: 4.8 - 6.0 % Non diabetic: < 6.0 % Goal: < 7.0 %Additional Action Suggested: > 8.0 %Note: Hemoglobin A1c results are invalid for patients with abnormal amounts of HbF. Blood transfusions may impact the HbA1c concentration in the patient sample. Estimated Average Glucose 126 mg/dL [facility] Comment:eAG = Estimated ave rage glucose which is %A1C expressed asaverage glucose, using the formula of the O4Q-[id number] Glucose study (ADAG), Diabetes Care, Vol.31,#8,2007 04/15/2024 8:29 AM EST 04/15/2024 8:29 AM EST Generic External Data Provider LAB BLOOD ORDERAB LES Final Result Performing Organization Address [facility] de Phone Number [facility] [address] [place] [phone] * (ABNORMAL) Albumin, Random Urine W/Creatinine (04/15/2024 8:26 AM EST) Creatinine, Urine 142.30 mg/dL [facility] Microalbumin Urine >2,000.0 mg/L [facility] Microalbum Creatinine Ratio Ur 1,405.4(H ) <30 ug/mg cr [facility] Comment:Albumin/Creatinine R atio Reference Ranges: Normal: < 30 ug/mg creatinine Microalbuminuria: 30 - 300 ug/mg creatinineClinical Albuminuria: > 300 ug/mg creatinine 04/15/2024 8:26 AM EST 04/15/2024 9:32 AM EST us Generic External Data Provider LAB URINE ORDERAB LES Final Result [facility] [address] [place] [address] [phone] documented in this encounter Visit Diagnoses Not on filedocumented in this encounter Additional Health Concerns Assessment Noted Time PHQ-9 Depression Total Score: 19 024 3:19 PM EDT documented as of this encounter Care Teams Optical Laboratory Manager Relationship Specialty Start Date End Date Martha Joyner MD [address] [place] [address] PCP - General Family Medicine 02/22/21 Endo [facility] Nurse Practitioner Endocrinology 01/08/24 documented as of this encounter
--- OUTSIDE RECORDS SUMMARY | 2024-05-08 08:14 | XMS_ITS | Encounter Summary ---
Author Organization [employer] Address [address] [facility] [address] 7t [place] [address] Care Team Providers Care Health And Wellness Sales Consultant Name Role Phone Martha Joyner MD Primary Care Provider [phone] Encounter Details Date Type Department Care Team [...] 05/18/2024 8:30 AM EDT Office Visit [facility] MED & PEDS [address] [place] [address] Adriane Schultz MD [address] [place] [address] 07/17/2024 8:00 AM EDT Office Visit [facility] ADULT DENTAL [address] [place] [address] Harvinder Newberry documented as of this encounter Visit Diagnoses Not on filedocumented in this encounter Additional Health Concerns Assessment Noted Time PHQ-9 Depression Total Score: 19 024 3:19 PM EDT documented as of this encounter Care Teams Health And Wellness Sales Consultant Relationship Specialty Start Date End Date Martha Joyner MD [address] [place] [address] PCP - General Family Medicine 02/22/21 [facility] Nurse Practitioner Endocrinology 01/08/24 documented as of this encounter
--- OUTSIDE RECORDS SUMMARY | 2024-05-08 08:14 | XMS_ITS | Encounter Summary ---
Author Organization [facility], Address [address] [place] [address] Phone Care Team Providers Care Cutter Grinder Name Role Phone Martha Joyner MD Primary Care Provider [phone] Encounter Details Date Type Department Care Team (Late st Contact Info) Description 04/30/2024 Orders Only [facility], [address] [place] [address] Jose Guadalupe Coleman MD [address] [place] [address] [place] [address] Social History Tobacco Use Types Packs/Day Years [...] Visit [facility] [address] [place] [place] [address] Jose Guadalupe Coleman MD [address] [place] [address] [place] [address] documented as of this encounter Procedures Procedure Name Priority Date/Time Associated Diagnosis Comments MICROSCOPIC EXAMINATION - DO NOT USE Routine 04/30/2024 7:23 AM EST PROTEIN / CREATININE RATIO, URINE Routine 04/30/2024 7:23 AM EST URINALYSIS WITH MICROSCOPIC Routine 04/30/2024 7:23 AM EST RENAL FUNCTION PANEL Routine 04/30/2024 7:23 AM EST documented in this encounter Results * (ABNORMAL) Protein, Total, Random Urine w/Creatinine (Protein/Creat Ratio) (04/30/2024 7:23 AM EST) Creatinine, Ur 169.1 Not Estab. mg/dL [facility] Protein, Ur 454.4 Not Estab. mg/dL [facility] Comment: Results confirmed on dilution. Urine Protein/Creati nine Ratio 2,687(H) 0 - 200 mg/g creat [facility] 04/30/2024 7:23 AM EST 04/30/2024 Jose Guadalupe Coleman MD LAB URINE ORDERABLES Final Result [facility] [address] [place] [address] * (ABNORMAL) Renal Function Panel (04/30/2024 7:23 AM EST) Glucose 125(H) 70 - 99 mg/dL [facility] BUN 21 6 - 24 mg/dL [facility] Creatinine 1.49(H) 0.76 - 1.27 mg/dL [facility] eGFR CKD-EPI CR 2020 59(L) >59 mL/min/1.7 3 [facility] BUN/Creatinine Ratio 14 9 - 20 [facility] Sodium 139 134 - 144 mmol/L [facility] Potassium 4.4 3.5 - 5.2 mmol/L [facility] Chloride 104 96 - 106 mmol/L [facility] Bicarbonate (CO2) 20 20 - 29 mmol/L [facility] Calcium 9.2 8.7 - 10.2 mg/dL [facility] Albumin 3.8(L) 4.1 - 5.1 g/dL [facility] Phosphorus 3.6 2.8 - 4.1 mg/dL [facility] 04/30/2024 7:23 AM EST 04/30/2024 Jose Guadalupe Coleman MD LAB BLOOD ORDERABLES Final Result Performing Organization Address City/[facility]/ZIP Co de Phone Number [facility] [address] [place] [address] * Microscopic Examination (04/30/2024 7:23 AM EST) WBC, Urine 0-5 0 - 5 /hpf [facility] RBC, Urine 0-2 0 - 2 /hpf [facility] Squamous Epithelial, Urine None seen 0 - 10 /hpf [facility] Casts None seen None seen /lpf [facility] Bacteria, Urine None seen None seen/Few [facility] 04/30/2024 7:23 AM EST 04/30/2024 Jose Guadalupe Coleman MD LAB MICROBIOLOGY - GENERAL ORDERABLES Final Result Performing Organization Address City/[facility]/ZIP Co de Phone Number [facility] [address] [place] [address] * (ABNORMAL) Urinalysis with microscopic (04/30/2024 7:23 AM EST) Specific [place], Urine 1.029 1.005 - 1.030 [facility] pH Urine 6.0 5.0 - 7.5 [facility] Color, Urine Yellow Yellow [facility] Appearance Urine Clear Clear [facility] [phone] WBC Esterase Urine Negative Negative [facility] [phone] Protein, Ur 3+(A) Negative/Tra ce [facility] Glucose, Ur 3+(A) Negative [facility] Ketones, Urine Negative Negative [facility] Blood Urine Negative Negative [facility] Bilirubin Urine Negative Negative [facility] [phone] Urobilinogen Urine 0.2 0.2 - 1.0 mg/dL [facility] Nitrite, Urine Negative Negative [facility] Microscopic Examination See below: [facility] Comment:Microscopic was gloria cated and was performed. 04/30/2024 7:23 AM EST 04/30/2024 us Jose Guadalupe Coleman MD LAB URINE ORDERABLES Final Result [facility] [address] [place] [address] documented in this encounter Visit Diagnoses Not on filedocumented in this encounter Care Teams Cutter Grinder Relationship Specialty Start Date End Date Martha Joyner MD PCP - General Family Medicine 06/29/21 documented as of this encounter
--- OUTSIDE RECORDS SUMMARY | 2024-05-08 08:14 | XMS_ITS | Encounter Summary ---
Author Organization [employer] Address [address] [facility] 7t [place] [address] Care Team Providers Care General Maintenance Helper Name Role Phone Martha Joyner MD Primary Care Provider [phone] Encounter Details Date Type Department Care Team ([facility] st Contact Info) Description 05/01/2023 Telephone [facility] MED & PEDS [address] [place], [place] [phone] Martha Joyner MD [address] [place], [place] [phone] Social History Tobacco Use Types Packs/Day Years [...] Description 05/18/2024 8:30 AM EDT Office Visit [facility] MED & PEDS [address] [place] [address] Adriane Schultz MD [address] [place] [address] 07/17/2024 8:00 AM EDT Office Visit [facility] ADULT DENTAL [address] [place] [address] Harvinder Newberry documented as of this encounter Visit Diagnoses Not on filedocumented in this encounter Additional Health Concerns Assessment Noted Time PHQ-9 Depression Total Score: 1 02/15/20 22 4:00 PM EST documented as of this encounter Care Teams General Maintenance Helper Relationship Specialty Start Date End Date Martha Joyner MD [address] [place] [address] PCP - General Family Medicine 02/22/21 [facility] Nurse Practitioner Endocrinology 01/08/24 documented as of this encounter
--- OUTSIDE RECORDS SUMMARY | 2024-05-08 08:14 | XMS_ITS | Encounter Summary ---
Author Organization [email or web address] Address [address] [facility] [address] [place] [address] Care Team Providers Care Gill Box Operator Name Role Phone Martha Joyner MD Primary Care Provider [phone] Reason for Visit * Reason Comments Med Refill Encounter Details Date Type Department Care Team ([facility] st Contact Info) Description 07/21/2023 Refill [facility] CH[facility] MED & PEDS [address], [place] [phone] Martha Joyner MD [address] [place] [address] Type 2 diabetes mellitus with hyperglycemia, without long-term current use of insulin ([facility]) Social History Tobacco [...] AM EDT Office Visit [facility] ED MED & PEDS [address] [place] [address] Adriane Schultz MD [address] [place] [address] 07/17/2024 8:00 AM EDT Office Visit [facility] ED ADULT DENTAL [address] [place] [address] Harvinder Newberry documented as of this encounter Visit Diagnoses Diagnosis Type 2 diabetes mellitus with hyperglycemia, without long-term current use of insulin ([facility]) documented in this encounter Additional Health Concerns Assessment Noted Time PHQ-9 Depression Total Score: 17 024 5:09 PM EDT documented as of this encounter Care Teams Gill Box Operator Relationship Specialty Start Date End Date Martha Joyner MD [address] [place] [address] PCP - General Family Medicine 02/22/21 Endo [facility] Nurse Practitioner Endocrinology 01/08/24 documented as of this encounter
--- OUTSIDE RECORDS SUMMARY | 2024-05-08 08:14 | XMS_ITS | Encounter Summary ---
Author Organization [employer] Address [address] [facility] [address] [place] [address] Care Team Providers Care Deputy Chief Executive Name Role Phone Martha Joyner MD Primary Care Provider [phone] Encounter Details Date Type Department Care Team (Late st Contact Info) Description 02/15/2022 Orders Only [facility] [address] [place], [place] [phone] Martha Joyner MD [address] [place], [place] [phone] Type 2 diabetes mellitus with hyperglycemia, without long-term current use of insulin ([facility]) (Primary Dx) Social History Tobacco Use [...] Description 05/18/2024 8:30 AM EDT Office Visit [facility] MED [facility] PEDS [address] [place] [address] Adriane Schultz MD [address] [place] [address] 07/17/2024 8:00 AM EDT Office Visit [facility] ADULT [facility] [address] [place] [address] Harvinder Newberry documented as of this encounter [...] 9:05 AM EDT) Creatinine, Urine 97.12 mg/dL [facility] Microalbumin Urine 900.0 mg/L [facility] Microalbum Creatinine Ratio Ur 926.6(H) <30 ug/mg cr [facility] Comment:Albumin/Creatinine R at Reference Ranges: Normal: < 30 ug/mg creatinine Microalbuminuria: 30 - 300 ug/mg creatinineClinical Albuminuria: > 300 ug/mg creatinine 11/09/2022 9:05 AM EDT 11/09/2022 2:30 PM EDT Martha Joyner MD LAB URINE ORDERABLES Final Re sult Performing Organization Address [facility] Co de Phone Number [facility] [address] [place] [phone] * (ABNORMAL) Sed Rate by Modified Augustusren (11/09/2022 9:00 AM EDT) Pathologist [facility] Erythrocyte Sedimentation Rate 34(H) 0 - 15 MM/HR [facility] Comment:Patients with polycy themia and many hemoglobin abnormalitiesmay have depressed sed rates whereas patients with anemiamay have elevated sed rates. 11/09/2022 9:0 0 AM EDT 11/09/2022 2:45 PM EDT us Martha Joyner MD LAB BLOOD ORDERABLES Final Re sult Performing Organization Address [facility] Co de Phone Number [facility] [address] [place] [phone] * (ABNORMAL) Comprehensive Metabolic Panel, Fasting (11/09/2022 9:00 AM EDT) Pathologist [facility] Sodium 139 135 - 145 mmol/L [facility] Potassium 4.5 3.3 - 5.1 mmol/L [facility] Chloride 106 96 - 108 mmol/L [facility] Carbon Dioxide 25 22 - 29 mmol/L [facility] Anion Gap 13 12 - 20 [facility] Urea Nitrogen (BUN) 26(H) 9 - 16 mg/dL [facility] Creatinine, Serum 1.35 0.5 - 1.4 mg/dL [facility] Estimated Glomerular Filt Rate 58 [facility] Comment:NOTE: For -Am erican individuals, multiply the result by 1.210.Chronic Kidney Disease: Estimated GFR < 60 mL/min/1.46e7Ohophy Kidney Disease: Estimated GFR < 15 mL/min/1.73m2 Glucose Fasting 109(H) 60 - 99 mg/dL [facility] Comment:A fasting glucose fr om 100-125 mg/dl is considered impaired(pre-diabetes). Calcium 10.1 8.4 - 10.2 mg/dL [facility] Bilirubin, Total 0.4 0.0 - 1.0 mg/dL [facility] Aspartate Amino Transferase 30 5 - 37 U/L [facility] Alanine Aminotransferase 27 0 - 40 U/L [facility] Total Protein 7.5 6.5 - 8.0 g/dL [facility] Albumin Level 3.9 3.5 - 5.0 g/dL [facility] Alkaline Phosphatase 78 39 - 117 U/L [facility] 11/09/2022 9:00 AM EDT 11/09/2022 2:45 PM EDT us Martha Joyner MD LAB BLOOD ORDERABLES Final Re sult Performing Organization Address City/State/[facility] Co de Phone Number [facility] [address] [place] [phone] * (ABNORMAL) Glucose, Whole Blood (07/27/2022 2:52 PM EDT) Glucose, Whole Blood 183(H) 60 - 115 mg/dL [facility] Comment:METER #: [id number] 5Testing performed in the Endocrinology Department [address] , [address], [facility]. 07/27/2022 2:52 PM EDT 07/27/2022 2:56 PM EDT [facility] External Provider LAB BLO OD ORDERABLES Final Result Performing Organization Address [facility] Co de Phone Number [facility] [address] [place] [phone] * Albumin, Random Urine W/Creatinine (05/18/2022 11:59 AM EDT) Creatinine, Urine 72.74 mg/dL [facility] Microalbumin Urine 747.0 mg/L [facility] Microalbum Creatinine Ratio Ur 1,026.9 ug/mg cr [facility] Comment:Albumin/Creatinine R atio Reference Ranges: Normal: < 30 ug/mg creatinine Microalbuminuria: 30 - 300 ug/mg creatinineClinical Albuminuria: > 300 ug/mg creatinine 05/18/2022 11:5 9 AM EDT 05/18/2022 1:23 PM EDT [facility] External Provider LAB URI NE ORDERABLES Final Result Performing Organization Address [facility] Co de Phone Number [facility] [address] [place] [phone] * Lipid Panel, Standard (05/18/2022 11:47 AM EDT) Triglycerides 243 mg/dL [facility] Comment:Desirable Triglyceri de: less than 150 mg/dLBorderline High Triglyceride 150-199 mg/dLHigh Triglyceride: 200-499 mg/dLVery High Triglyceride: greater than or equal to 5OO mg/dL Cholesterol 152 mg/dL [facility] Comment:Desirable Cholestero l: less than 200 mg/dLBorderline High Cholesterol: 200-239 mg/dLHigh Cholesterol: greater than 239 mg/dL LDL Cholesterol Calculated 70 mg/dl [facility] Comment:Desirable LDL: less than 100 mg/dLNear Optimal/Above Optimal LDL: 110- 129 mg/dLBorderline High LDL: 130-159 mg/dLHigh LDL: 160-189 mg/dLVery High LDL: greater than or equal to 190 mg/dL HDL Cholesterol 34 mg/dL [facility] Comment:Desirable HDL: great er than 40 mg/dL Note: This HDL assay may give artificially low results in patients with liver disease. 05/18/2022 11:4 7 AM EDT 05/18/2022 1:23 PM EDT [facility] External Provider LAB BLO OD ORDERABLES Final Result Performing Organization Address [facility] Co de Phone Number [facility] [address] [place] [phone] * (ABNORMAL) Glucose, Whole Blood (05/18/2022 10:23 AM EDT) Glucose, Whole Blood 172(H) 60 - 115 mg/dL [facility] Comment:METER #: [id number] 5Testing performed in the Endocrinology Department [address] , [address], [facility]. 05/18/2022 10:2 3 AM EDT 05/18/2022 10:28 AM EDT [facility] External Provider LAB BLO OD ORDERABLES Final Result Performing Organization Address [facility] de Phone Number [facility] [address] [place] [phone] documented in this encounter Visit Diagnoses Diagnosis Type 2 diabetes mellitus with hyperglycemia, without long-term current use of insulin ([facility])- Primary documented in this encounter Additional Health Concerns Assessment Noted Time PHQ-9 Depression Total Score: 1 02/15/20 22 4:00 PM EST documented as of this encounter Care Teams Deputy Chief Executive Relationship Specialty Start Date End Date Martha Joyner MD [address] [place] [phone] PCP - General Family Medicine 02/22/21 [facility] Nurse Practitioner Endocrinology 01/08/24 documented as of this encounter
--- NOTE | 2024-05-08 12:51 | MHC.OFFVISWM ---
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 Allergies No Known Allergies Allergy (Verified 05/08/24 12:52) Medication List - Last Reconciled 05/08/24 by Obey Mendoza MD allopurinol 300 mg PO BEDTIME amlodipine 10 mg PO DAILY ashwagandha extract mg PO blood-glucose meter (FreeStyle Rena Lara Lite kit) As directed blood-glucose sensor (FreeStyle Jeannette 3 Plus Sensor device) Use daily As directed to monitor glucose carvedilol 6.25 mg PO BID cholecalciferol (vitamin D3) 50 mcg PO DAILY clomiphene citrate 50 mg PO DAILY 90 days cyanocobalamin (vitamin B-12) 3,000 mcg PO DAILY dapagliflozin propanediol (Farxiga) 10 mg PO DAILY lancets (TRUEplus Lancets) As directed thiamine HCl (vitamin B1) 500 mg PO DAILY tirzepatide (Mounjaro) 12.5 mg (0.5 mL) subcut QWEEK valsartan 320 mg PO DAILY HPI 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: Details: Start time: 12.48pm, End time: 1.33pm ?I spent 40 minutes speaking with the patient on the phone plus an additional 5 minutes reviewing and updating records for a total of 45 minutes HPI Comments Details: Previous weight loss efforts: diet and exercise 9296-2693: 17 lbs, Mounjaro 12.5mg/wk 5433-3491: 18 lbs Wakes up: 5am, Sleeps: 10pm Breakfast: 9am (fruits, omelette, eggs, beans) Lunch: 12.30pm (low carb bread with soup or salad, wraps) Dinner: skips Snacks: occasionally at 10.30am (nuts) after lunch twice (nuts) Exercise: has gym membership, 5 days per week Fluids: Coffee: (2-3 cups/day with milk and stevia), tea: none, soda: none, juice: none, ETOH: none PFSH Medical History (Updated 05/08/24 @ 13:02 by Obey Mendoza MD) Morbid obesity HTN (hypertension) Type 2 diabetes mellitus Surgical History No pertinent past surgical history Family History (Updated 04/30/24 @ 08:01 by WILLIAM Yeboah) Mother High blood pressure Father Diabetes Kidney problem High blood pressure Maternal Aunt Cancer Maternal Aunt Cancer Social History Alcohol intake: never Patient Tobacco Use Status: Never used Tobacco Telehealth Telehealth Telehealth Platform: Telephone Location of provider rendering services: practice address Location of patient: address on file Patient Identification confirmed using: Name, : Yes Telehealth method: voice only Patient verbally consented to treatment: Yes Patient verbally consented to billing insurance company: Yes Patient informed of any privacy concerns related to visit: Yes Minutes spent on Phone/Video with Pt.: 45 Assessment & Plan Assessment & Plan (1) Morbid obesity: Code(s): E66.01 - Morbid (severe) obesity due to excess calories Category: Medical Plan: 1.? Plan for lap sleeve gastrectomy. If diaphragmatic or ventral hernias are present at time of surgery, these will be repaired laparoscopically as well. I emphasized the importance of close follow-up, adherence to instructions and good communication. The surgery does not replace the need to change your lifestlyle which is the cause of the obesity problem. The surgery provides the motivation to try again to change your lifestyle, it reduces the appetite and make the transition to a better lifestyle easier and doubles the amount of weight you would lose compared to doing the lifestyle change without the surgery. You will need to be on a liquid diet with protein shakes for 2 weeks before surgery to maximize weight loss and boost your nutritional status to recover better from surgery and also for the first two weeks after surgery to let the stomach heal before we introduce other foods. After the first 2 weeks we will introduce protein bars and soft foods like scrambled eggs, cottage cheese and yogurt and after the 6th week will introduce meat, fish and cooked vegetables in small amounts. Over time you should be able to eat everything in small amounts. Side effects like nausea, vomiting, heartburn or abdominal pain are not common in the practice unless you are not following in the practice. This operation requires lifetime commitment to following in our practice and communication with me. You will much less weight and experience side effects if you don?t communicate or not following in the practice. Complications are rare and in our practice is about 1/10 of the national average. However, you can develop bleeding that may require transfusion (hasn?t happened for year in the practice), you may from complications (we did not have any deaths in the practice) and infections. Infections are usually a result of breakdown in communication or not understanding or following directions correctly. They are difficult to treat, they can happen during the first 6 weeks, they may require to be in the hospital for weeks or even months, not being able to eat by mouth and you may have drains and surgeries to try and correct the issue. Other risks and complications include possible conversion to an open procedure, leaks, small bowel obstruction, blood clots, cardiac, or pulmonary complications, as longterm complications such as ulcers, insufficient weight loss and vitamin deficiencies. 2. You will receive a link of our software jose luis to generate an individualized nutritional and exercise plan specific for you. Please send me a screenshot of the plans you will generate Meal to include lean meat (beef, fish, pork, turkey, chicken), or spanish yogurt, or egg whites, or beans with a salad with olive oil and fruits (berries, pears, apples, kiwi). Avoid salt, breads, potatoes, rice, pasta, desserts. ?3. If you choose shakes, each shake would be drunk slowly, like coffee in a period of 2 hours. ?4. If you choose bars, cut each bar in 4 pieces and eat each piece in 30min ?to make each bar last 2 hours. ?5. I emphasized the importance of measuring accurately the food portion and measure it when serving the food in plate ?6. The meal portions include a specific number of forks of meat and salad. You always eat the meat portion but you can replace up to half of salad/vegetables portion with rice, potatoes or pasta, or a fruit ?if you like. The less you do it the better weight loss will be. ?7. One full-size fork is what it can be scooped on the fork without falling aside and not what can be bit with the fork. Use regular forks like those you find in a typical restaurant. ?8.? Please buy the body composition scale we discussed and send me weight measurements as soon as possible and then once a week. Always include your diet and exercise plan. 9. The best choice would be to purchase a stationary bike, elliptical or treadmill at home that can track calories. Let me know if you do so I can give you an exercise plan. ?10. Goal is to lose at least 1.5-2lbs per week ?11. Goal to lose 10% of your weight before surgery, which is about 30lbs. Ultimate weight goal: 258lbs before surgery 12. Please follow the diet plan exactly without any change. If you don't like something about the plan or you feel hungry you need to communicate with me so I can help you revise the plan. You should not change the plan yourself. 13. To be scheduled for EGD to assess the stomach's anatomy. The possibility of biopsies was discussed. Patient needs to avoid use of NSAIDs and aspirin for 1 week prior to EGD. You must be on liquids only the day before your endoscopy. Risks of perforation and bleeding was discussed with the patient. This will be an outpatient procedure with IV sedation. 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, E29.1 - Testicular hypofunction, E66.01 - Morbid (severe) obesity due to excess calories, I10 - Essential (primary) hypertension, N18.30 - Chronic kidney disease, stage 3 unspecified, R80.9 - Proteinuria, unspecified Lipid Panel Today E11.29 - Type 2 diabetes mellitus with other diabetic kidney complication, E29.1 - Testicular hypofunction, E66.01 - Morbid (severe) obesity due to excess calories, I10 - Essential (primary) hypertension, N18.30 - Chronic kidney disease, stage 3 unspecified, R80.9 - Proteinuria, unspecified IRON PROFILE Today E11.29 - Type 2 diabetes mellitus with other diabetic kidney complication, E29.1 - Testicular hypofunction, E66.01 - Morbid (severe) obesity due to excess calories, I10 - Essential (primary) hypertension, N18.30 - Chronic kidney disease, stage 3 unspecified, R80.9 - Proteinuria, unspecified TSH reflex Free T4 Today E11.29 - Type 2 diabetes mellitus with other diabetic kidney complication, E29.1 - Testicular hypofunction, E66.01 - Morbid (severe) obesity due to excess calories, I10 - Essential (primary) hypertension, N18.30 - Chronic kidney disease, stage 3 unspecified, R80.9 - Proteinuria, unspecified Ferritin Today E11.29 - Type 2 diabetes mellitus with other diabetic kidney complication, E29.1 - Testicular hypofunction, E66.01 - Morbid (severe) obesity due to excess calories, I10 - Essential (primary) hypertension, N18.30 - Chronic kidney disease, stage 3 unspecified, R80.9 - Proteinuria, unspecified US abdomen comp w elastography Today E11.29 - Type 2 diabetes mellitus with other diabetic kidney complication, E29.1 - Testicular hypofunction, E66.01 - Morbid (severe) obesity due to excess calories, I10 - Essential (primary) hypertension, N18.30 - Chronic kidney disease, stage 3 unspecified, R80.9 - Proteinuria, unspecified XR chest 2V Today E11.29 - Type 2 diabetes mellitus with other diabetic kidney complication, E29.1 - Testicular hypofunction, E66.01 - Morbid (severe) obesity due to excess calories, I10 - Essential (primary) hypertension, N18.30 - Chronic kidney disease, stage 3 unspecified, R80.9 - Proteinuria, unspecified Hemoglobin A1c Today E11.29 - Type 2 diabetes mellitus with other diabetic kidney complication, E29.1 - Testicular hypofunction, E66.01 - Morbid (severe) obesity due to excess calories, I10 - Essential (primary) hypertension, N18.30 - Chronic kidney disease, stage 3 unspecified, R80.9 - Proteinuria, unspecified Complete Blood Count Auto Diff Today E11.29 - Type 2 diabetes mellitus with other diabetic kidney complication, E29.1 - Testicular hypofunction, E66.01 - Morbid (severe) obesity due to excess calories, I10 - Essential (primary) hypertension, N18.30 - Chronic kidney disease, stage 3 unspecified, R80.9 - Proteinuria, unspecified Comprehensive Met. Panel Today E11.29 - Type 2 diabetes mellitus with other diabetic kidney complication, E29.1 - Testicular hypofunction, E66.01 - Morbid (severe) obesity due to excess calories, I10 - Essential (primary) hypertension, N18.30 - Chronic kidney disease, stage 3 unspecified, R80.9 - Proteinuria, unspecified Vitamin B12 and Folate Today E11.29 - Type 2 diabetes mellitus with other diabetic kidney complication, E29.1 - Testicular hypofunction, E66.01 - Morbid (severe) obesity due to excess calories, I10 - Essential (primary) hypertension, N18.30 - Chronic kidney disease, stage 3 unspecified, R80.9 - Proteinuria, unspecified Zinc Today E11.29 - Type 2 diabetes mellitus with other diabetic kidney complication, E29.1 - Testicular hypofunction, E66.01 - Morbid (severe) obesity due to excess calories, I10 - Essential (primary) hypertension, N18.30 - Chronic kidney disease, stage 3 unspecified, R80.9 - Proteinuria, unspecified C Reactive Protein Today E11.29 - Type 2 diabetes mellitus with other diabetic kidney complication, E29.1 - Testicular hypofunction, E66.01 - Morbid (severe) obesity due to excess calories, I10 - Essential (primary) hypertension, N18.30 - Chronic kidney disease, stage 3 unspecified, R80.9 - Proteinuria, unspecified Vitamin B1 Today E11.29 - Type 2 diabetes mellitus with other diabetic kidney complication, E29.1 - Testicular hypofunction, E66.01 - Morbid (severe) obesity due to excess calories, I10 - Essential (primary) hypertension, N18.30 - Chronic kidney disease, stage 3 unspecified, R80.9 - Proteinuria, unspecified Vitamin A Today E11.29 - Type 2 diabetes mellitus with other diabetic kidney complication, E29.1 - Testicular hypofunction, E66.01 - Morbid (severe) obesity due to excess calories, I10 - Essential (primary) hypertension, N18.30 - Chronic kidney disease, stage 3 unspecified, R80.9 - Proteinuria, unspecified Vitamin D 25-OH Total Today E11.29 - Type 2 diabetes mellitus with other diabetic kidney complication, E29.1 - Testicular hypofunction, E66.01 - Morbid (severe) obesity due to excess calories, I10 - Essential (primary) hypertension, N18.30 - Chronic kidney disease, stage 3 unspecified, R80.9 - Proteinuria, unspecified ECG 12 lead EKG Today E11.29 - Type 2 diabetes mellitus with other diabetic kidney complication, E29.1 - Testicular hypofunction, E66.01 - Morbid (severe) obesity due to excess calories, I10 - Essential (primary) hypertension, N18.30 - Chronic kidney disease, stage 3 unspecified, R80.9 - Proteinuria, unspecified FL upper GI w air Today E11.29 - Type 2 diabetes mellitus with other diabetic kidney complication, E29.1 - Testicular hypofunction, E66.01 - Morbid (severe) obesity due to excess calories, I10 - Essential (primary) hypertension, N18.30 - Chronic kidney disease, stage 3 unspecified, R80.9 - Proteinuria, unspecified Referrals Behavioral Health Referral E11.29 - Type 2 diabetes mellitus with other diabetic kidney complication, E29.1 - Testicular hypofunction, E66.01 - Morbid (severe) obesity due to excess calories, I10 - Essential (primary) hypertension, N18.30 - Chronic kidney disease, stage 3 unspecified, R80.9 - Proteinuria, unspecified Nutrition/Dietitian Referral E11.29 - Type 2 diabetes mellitus with other diabetic kidney complication, E29.1 - Testicular hypofunction, E66.01 - Morbid (severe) obesity due to excess calories, I10 - Essential (primary) hypertension, N18.30 - Chronic kidney disease, stage 3 unspecified, R80.9 - Proteinuria, unspecified
[2024-05-08 13:08] VITALS: BMI 40.7
== END 2024-05-08 13:34 | disposition home or self-care (01) ==
LOC: HO.HBS 08:07
PROVIDERS: PCP Family Medicine; Visit Provider Surgery
DX: E66.01 Morbid (severe) obesity due to excess calories (principal)
CPT/HCPCS: 98014

== ENCOUNTER 2024-05-25 06:04 | Outpatient (REF) | payer OTHER, SELFPAY ==
--- NOTE | ~2024-05-25 | XR_ITS ---
CLINICAL HISTORY: E66.01 - Morbid (severe) obesity due to excess calories 2 view chest x-ray Comparison: None Findings: No consolidation, pleural effusion or pneumothorax. Borderline heart size normal pulmonary vascularity. No acute fracture. IMPRESSION: 1. No acute findings. This document has been electronically signed by: Nora Lazcano DO on 05/25/2024 13:52:55
[2024-05-25 06:31] LABS: MANUAL DIFF FLAG NO
[2024-05-25 07:28] LABS: Basophils Absolute Auto 0.1 X10*3/uL (0.0-0.2); Basophils Percent Auto 0.8 % (0-2); Eosinophils Absolute Auto 0.3 X10*3/uL (0.0-0.4); Eosinophils Percent Auto 3.8 % (0-4); Hematocrit 49.1 % (42.0-52.0); Hemoglobin 16.6 g/dl (14.0-18.0); Imm Gran Abs Auto 0.03 X10*3/uL (0.00-0.03); Imm Gran Pct Auto 0.3 % (0.0-0.4); Lymphocytes Absolute Auto 2.5 X10*3/uL (1.2-4.9); Lymphocytes Percent Auto 28.7 % (20-40); Mean Corpuscular HGB Conc 33.8 g/dl (31.0-36.0); Mean Corpuscular Hemoglobin 28.7 pg (27.0-33.0); Mean Corpuscular Volume 84.8 fL (80.0-98.0); Mean Platelet Volume 9.4 fL (9.4-12.4); Monocytes Absolute Auto 0.7 X10*3/uL (0.1-1.2); Monocytes Percent Auto 8.2 % (2-11); Neutrophils Percent Auto 58.2 % (45-73); Platelet Count 253 X10*3/uL (160-400); Red Blood Count 5.79 X10*6/uL (4.60-5.80); Red Cell Distribution Width 14.6 % (11.0-16.0); White Blood Count 8.6 X10*3/uL (4.8-10.8)
[2024-05-25 07:33] LABS: Estimated Average Glucose 131 mg/dL; Hemoglobin A1c % 6.2 % (<6.0); Total Hemoglobin (HGBA1C) 4260.8385 umol/L
[2024-05-25 07:53] LABS: Anion Gap 12 (12-20)
[2024-05-25 08:01] LABS: Alanine Aminotransferase 29 U/L (0-40); Albumin Level 3.6 g/dL (3.5-5.0); Aspartate Amino Transferase 29 U/L (5-37); Bilirubin Total 0.3 mg/dL (0.0-1.0); Blood Urea Nitrogen 26 mg/dL (9-16); C Reactive Protein 1.04 mg/dL (< or = 0.50); Calcium 9.2 mg/dL (8.4-10.2); Carbon Dioxide 23 mmol/L (22-29); Chloride 111 mmol/L (96-108); Cholesterol 139 mg/dL (<200); Estimated Glomerular Filt Rate 59; Glucose Random 123 mg/dL (60-115); HDL Cholesterol 35 mg/dL (>40); Iron 46 mcg/dL (45-160); LDL Cholesterol Calculated 80 mg/dL (<100); Percent Iron Saturation 16 % (15-50); Potassium 4.7 mmol/L (3.3-5.1); Sodium 141 mmol/L (135-145); Total Iron Binding Capacity 279 mcg/dL (228-428); Total Protein 7.2 g/dL (6.5-8.0); Triglycerides 120 mg/dL (<150); Unsaturated Iron Binding 233 ug/dL
[2024-05-25 08:05] LABS: Alkaline Phosphatase 66 U/L (39-117)
[2024-05-25 08:23] LABS: Ferritin 70 ng/mL (20-250); Insulin 43 uU/mL (2-29); TSH reflex Free T4 2.92 uIU/mL (0.32-4.0); Vitamin D 25-OH Total 67.5 ng/mL (>30)
[2024-05-25 08:32] LABS: Folate 10.6 ng/mL (> or = 4.0); Vitamin B12 1547 pg/mL (200-900)
[2024-05-28 17:03] LABS: Vitamin A 74 mcg/dL (38-98)
[2024-05-29 00:33] LABS: Zinc 76 mcg/dL (60-130)
[2024-06-01 13:58] LABS: Vitamin B1 21 nmol/L (8-30)
== END 2024-05-25 06:05 | disposition home or self-care (01) ==
LOC: HO.XRAY 06:04
PROVIDERS: PCP Family Medicine; Visit Provider Surgery
DX: E66.01 Morbid (severe) obesity due to excess calories (principal); E29.1 Testicular hypofunction; E11.29 Type 2 diabetes mellitus with other diabetic kidney complication; R80.9 Proteinuria, unspecified; I10 Essential (primary) hypertension; N18.30 Chronic kidney disease, stage 3 unspecified
CPT/HCPCS: 36415; 71046; 80053; 80061; 82306; 82607; 82728; 82746; 83036; 83525; 83540; 84425; 84443; 84590; 84630; 85025; 86140

== ENCOUNTER → 2024-05-25 06:32 | Outpatient (BNV) | payer OTHER, SELFPAY | PROVIDERS: PCP Family Medicine; Visit Provider Radiology Diagnostic Radiology | DX: Z01.818 Encounter for other preprocedural examination (principal); E66.01 Morbid (severe) obesity due to excess calories | CPT/HCPCS: 71046 ==

== ENCOUNTER 2024-05-28 10:05 | Outpatient (AMB) | payer OTHER, SELFPAY ==
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
--- OUTSIDE RECORDS SUMMARY | 2024-05-28 12:43 | XMS_ITS | Encounter Summary ---
Author Organization [employer] Address [address] [place] [address] Care Team Providers Care Dry Pan Operator Name Role Phone Martha Joyner MD Primary Care Provider [phone] Reason for Visit * Reason Onset Date Comments Nurse Triage 11/20/2023 Encounter Details Date Type Department Care Team ([facility] st Contact Info) Description 11/20/2023 Telephone [facility] MEDICINE [address] [place] [address] Martha Joyner MD [address] [place] [address] Nurse Triage Social History Tobacco Use Types [...] didn't answer. Left voice message to call [facility] triage line at [phone] [phone]. * Telephone Encounter - Rangel Razo [...] Care Team (Late st Contact Info) Description 07/17/2024 8:00 AM EDT Office Visit [facility] ADULT DENTAL [address] [place] [address] Harvinder Newberry documented as of this encounter Visit Diagnoses Not on filedocumented in this encounter Additional Health Concerns Assessment Noted Time PHQ-9 Depression Total Score: 19 024 3:19 PM EDT documented as of this encounter Care Teams Dry Pan Operator Relationship Specialty Start Date End Date Martha Joyner MD [address] [place] [address] PCP - General Family Medicine 02/22/21 [facility] Nurse Practitioner Endocrinology 01/08/24 documented as of this encounter
--- OUTSIDE RECORDS SUMMARY | 2024-05-28 12:43 | XMS_ITS | Encounter Summary ---
Author Organization [employer] Address [address] [place] [address] Care Team Providers Care Solutions Architect Consultant Name Role Phone Martha Joyner MD Primary Care Provider [phone] Encounter Details Date Type Department Care Team ([facility] st Contact Info) Description 05/06/2024 Telephone [facility] MED & PEDS [address] [place], [place] [phone] Martha Joyner MD [address] [place], [place] [id number] Social History Tobacco Use Types Packs/Day Years [...] from pt returning call. Contact pt at [phone] * Telephone Encounter - Adeola Lewis RN - 05/06/2024 3:13 PM EST Called patient to reschedule appointment for 05/07/24 d/t Dr. Schultz not being in the office. Instructed patient to call office to reschedule appointment. documented in this encounter Plan of Treatment Upcoming Encounters Date Type Department Care Team (Late st Contact Info) Description 07/17/2024 8:00 AM EDT Office Visit [facility] ADULT DENTAL [address] [place] [address] Harvinder Newberry documented as of this encounter Visit Diagnoses Not on filedocumented in this encounter Additional Health Concerns Assessment Noted Time PHQ-9 Depression Total Score: 19 024 3:19 PM EDT documented as of this encounter Care Teams Solutions Architect Consultant Relationship Specialty Start Date End Date Martha Joyner MD [address] [place] [id number] PCP - General Family Medicine 02/22/21 [facility] Nurse Practitioner Endocrinology 01/08/24 documented as of this encounter
--- OUTSIDE RECORDS SUMMARY | 2024-05-28 12:43 | XMS_ITS | Encounter Summary ---
Author Organization [employer] Address [address] [place] [address] Care Team Providers Care Fire Tower Keeper Name Role Phone Martha Joyner MD Primary Care Provider [phone] Reason for Visit * Reason Onset Date Comments Nurse Triage 05/04/2024 Encounter Details Date Type Department Care Team ([facility] st Contact Info) Description 05/04/[address] [facility] MEDICINE [address] [place] [address] Martha Joyner MD [address] [place] [address] Nurse Triage Social History Tobacco Use Types [...] - 05/04/2024 11:08 AM EST No home visits nurse needed as this property underwriter speaks Telugu. Call returned to Edd Mendieta to triage [...] Center 05/07/2024 8:30 AM Adriane Schultz MD [facility] 07/17/2024 8:00 AM Harvinder Newberry [facility] Insurance verified as active per Real Time Eligibility in [facility]. Video visit offer not recorded Positive Triage [...] Description 07/17/2024 8:00 AM EDT Office Visit [facility] ADULT DENTAL [address] [place] [address] Harvinder Newberry documented as of this encounter Visit Diagnoses Not on filedocumented in this encounter Additional Health Concerns Assessment Noted Time PHQ-9 Depression Total Score: 19 07/ 024 3:19 PM EDT documented as of this encounter Care Teams Fire Tower Keeper Relationship Specialty Start Date End Date Martha Joyner MD [address] [place] [address] PCP - General Family Medicine 02/22/21 [facility] Nurse Practitioner Endocrinology 01/08/24 documented as of this encounter
--- OUTSIDE RECORDS SUMMARY | 2024-05-28 12:44 | XMS_ITS | Encounter Summary ---
Author Organization [facility] Address [address] [place] [address] [address] [place] [address] Care Team Providers Care Viscosity Worker Name Role Phone Martha Joyner MD Primary Care Provider [phone] Reason for Visit * Reason Comments Med Refill Encounter Details Date Type Department Care Team (Late st Contact Info) Description 10/15/2022 Refill [facility] MED & PEDS [address] [place] [address] Martha Joyner MD [address] [place] [address] Type 2 diabetes mellitus with hyperglycemia, without long-term current use of insulin ([facility]) Social History Tobacco Use Types [...] 8:00 AM EDT Office Visit [facility] ADULT DENTAL [address] [place] [address] Harvinder Deutsch documented as of this encounter Visit Diagnoses Diagnosis Type 2 diabetes mellitus with hyperglycemia, without long-term current use of insulin ([facility]) documented in this encounter Additional Health Concerns Assessment Noted Time PHQ-9 Depression Total Score: 1 02/15/20 22 4:00 PM EST documented as of this encounter Care Teams Viscosity Worker Relationship Specialty Start Date End Date Martha Joyner MD [address] [place] [address] PCP - General Family Medicine 02/22/21 [facility] Nurse Practitioner Endocrinology 01/08/24 documented as of this encounter
--- OUTSIDE RECORDS SUMMARY | 2024-05-28 12:44 | XMS_ITS | Clinical Summary ---
Author Organization [facility], Address [address] [place] [address] [place] [address] Phone Care Team Providers Care Metal Patternmaker Apprentice Name Role Phone Martha Joyner MD Primary Care Provider [phone] Allergies Active Allergy Reactions Criticality Noted Date [...] DAILY UNTIL FINISHED 3 Active TechLite Pen [place] 31G X 5 MM misc USE DAILY [...] Blood Gluc Sensor (FreeStyle Jeannette 3 Sensor) [facility] USE DIRECTED TO TEST BLOOD SUGAR CHANGE [...] Only [facility] [place] [address] Jose Guadalupe Coleman MD 04/28/2024 Office Communication [facility], [address] [place] [address] Tatianna Lao from Last 3 [...] Visit [facility], [address] [place] [place] [address] Jose Guadalupe Coleman MD [address] [place] [address] [place] [address] Health Maintenance Due Date Last [...] Urine 0-5 0 - 5 /hpf [facility] RBC, Urine 0-2 0 - 2 /hpf [facility] Squamous Epithelial, Urine None seen 0 - 10 /hpf [facility] Casts None seen None seen /lpf [facility] Bacteria, Urine None seen None seen/Few [facility] 04/30/2024 7:23 AM EST 04/30/2024 Jose Guadalupe Coleman MD LAB MICROBIOLOGY - GENERAL ORDERABLES Final Result Performing Organization Address City/[facility]/ZIP Co de Phone Number [facility] [address] [place] [address] * (ABNORMAL) Protein, Total, Random Urine w/Creatinine (Protein/Creat Ratio) (04/30/2024 7:23 AM EST) Creatinine, Ur 169.1 Not Estab. mg/dL [facility] Protein, Ur 454.4 Not Estab. mg/dL [facility] Comment: Results confirmed on dilution. Urine Protein/Creati nine Ratio 2,687(H) 0 - 200 mg/g creat [facility] 04/30/2024 7:23 AM EST 04/30/2024 Jose Guadalupe Coleman MD LAB URINE ORDERABLES Final Result Performing Organization Address City/[facility]/ZIP Co de Phone Number [facility] [address] [place] [address] * (ABNORMAL) Urinalysis with microscopic (04/30/2024 7:23 AM EST) Specific [place], Urine 1.029 1.005 - 1.030 [facility] pH Urine 6.0 5.0 - 7.5 [facility] Color, Urine Yellow Yellow [facility] [phone] Appearance Urine Clear Clear [facility] WBC Esterase Urine Negative Negative [facility] [phone] Protein, Ur 3+(A) Negative/Tra ce [facility] Glucose, Ur 3+(A) Negative [facility] Ketones, Urine Negative Negative [facility] Blood Urine Negative Negative [facility] [phone] Bilirubin Urine Negative Negative [facility] Urobilinogen Urine 0.2 0.2 - 1.0 mg/dL [facility] [phone] Nitrite, Urine Negative Negative [facility] Microscopic Examination See below: [facility] Comment:Microscopic was gloria cated and was performed. 04/30/2024 7:23 AM EST 04/30/2024 us Jose Guadalupe Coleman MD LAB URINE ORDERABLES Final Result [facility] [address] [place] [address] * (ABNORMAL) Renal Function Panel (04/30/2024 7:23 AM EST) Glucose 125(H) 70 - 99 mg/dL [facility] BUN 21 6 - 24 mg/dL [facility] Creatinine 1.49(H) 0.76 - 1.27 mg/dL [facility] eGFR CKD-EPI CR 2020 59(L) >59 mL/min/1.7 3 [facility] BUN/Creatinine Ratio 14 9 - 20 [facility] Sodium 139 134 - 144 mmol/L [facility] Potassium 4.4 3.5 - 5.2 mmol/L [facility] Chloride 104 96 - 106 mmol/L [facility] Bicarbonate (CO2) 20 20 - 29 mmol/L [facility] Calcium 9.2 8.7 - 10.2 mg/dL [facility] Albumin 3.8(L) 4.1 - 5.1 g/dL [facility] Phosphorus 3.6 2.8 - 4.1 mg/dL [facility] 04/30/2024 7:23 AM EST 04/30/2024 us Jose Guadalupe Coleman MD LAB BLOOD ORDERABLES Final Result [facility] [address] [place] [address] from Last 3 Months Insurance [facility] ([id number]) Care Teams Metal Patternmaker Apprentice Relationship Specialty Start Date End Date Martha Joyner MD PCP - General Family Medicine 06/29/21
--- OUTSIDE RECORDS SUMMARY | 2024-05-28 12:44 | XMS_ITS | Encounter Summary ---
Author Organization [facility] Address [address] [address] Phone Care Team Providers Care [place] Auditor Name Role Phone Martha Joyner MD Primary Care Provider [phone] Encounter Details Date Type Department Care Team (Late st Contact Info) Description 06/29/2021 Documentation Only [facility] [address] [place] [phone] Martha Joyner MD [address] [place] [address] [id number] Social History Tobacco Use Types Packs/Day Years [...] Visit [facility] [address] [place] [address] Jose Guadalupe Coleman MD [address] [place] [address] [place] [phone] documented as of this encounter Visit Diagnoses Not on filedocumented in this encounter Care Teams [place] Auditor Relationship Specialty Start Date End Date Martha Joyner MD PCP - General Family Medicine 06/29/21 documented as of this encounter
--- OUTSIDE RECORDS SUMMARY | 2024-05-28 12:44 | XMS_ITS | Encounter Summary ---
Author Organization [employer] Address [address] [place] [address] Care Team Providers Care Photocopier Technician Name Role Phone Martha Joyner MD Primary Care Provider [phone] Encounter Details Date Type Department Care Team (Latest Contact Info) Description 05/26/2024 Travel Social History Tobacco Use Types Packs/Day [...] Description 07/17/2024 8:00 AM EDT Office Visit [facility] [address] [place] [address] Harvinder Newberry documented as of this encounter Visit Diagnoses Not on filedocumented in this encounter Additional Health Concerns Assessment Noted Time PHQ-9 Depression Total Score: 19 024 3:19 PM EDT documented as of this encounter Care Teams Photocopier Technician Relationship Specialty Start Date End Date Martha Joyner MD [address] [place] [id number] PCP - General Family Medicine 02/22/21 [facility] Nurse Practitioner Endocrinology 01/08/24 documented as of this encounter
--- OUTSIDE RECORDS SUMMARY | 2024-05-28 12:44 | XMS_ITS | Encounter Summary ---
Author Organization [email or web address] Address [address] [place] [address] Care Team Providers Care Catalyst Manufacturing Operator Name Role Phone Martha Joyner MD Primary Care Provider [phone] Reason for Visit * Reason Comments Med Refill Encounter Details Date Type Department Care Team ([facility] Contact Info) Description 03/11/2023 Telephone [facility] MED & PEDS [address] [place], [place] [phone] Martha Joyner MD [address] [place] [address] Med Refill Social History Tobacco Use Types [...] note were not included. MD Deya Bryson [facility] Med & Peds Nurses Caller: Unspecified (Yesterday, 1:10 PM) Hi! Please could you follow up on the urology referral I placed, and if a appointment already givencould it be scheduled as soon as possible? TC placed to [facility] urology @ [phone] to see if patient has been seen [...] chart. TC placed to [facility] @ [phone] to request U/S report be faxed to [facility] @ [phone]. They faxed it. TC placed to patient to encourage him to make a sooner appointment with urology or at least keep his upcoming appointment. No answer. LM to call us back. Routing to Dr. Doran so he is aware and back to [facility] nurses so they can try again. Patient has f/u with PCP scheduled for 04/02/23. Notes added to appointment for that day. documented in this encounter Plan of Treatment Upcoming Encounters Date Type Department Care Team (Late st Contact Info) Description 07/17/2024 8:00 AM EDT Office Visit [facility] CH[facility] ADULT DENTAL [address] [place] [address] Harvinder Newberry documented as of this encounter Visit Diagnoses Not on filedocumented in this encounter Additional Health Concerns Assessment Noted Time PHQ-9 Depression Total Score: 1 02/15/20 22 4:00 PM EST documented as of this encounter Care Teams Catalyst Manufacturing Operator Relationship Specialty Start Date End Date Martha Joyner MD [address] [place] [id number] PCP - General Family Medicine 02/22/21 [facility] Nurse Practitioner Endocrinology 01/08/24 documented as of this encounter
--- OUTSIDE RECORDS SUMMARY | 2024-05-28 12:44 | XMS_ITS | Encounter Summary ---
Author Organization [facility] Address [address] [place] [address] [address] [place] [address] Care Team Providers Care Batting Machine Operator Insulation Name Role Phone Martha Joyner MD Primary Care Provider [phone] Reason for Referral * Medications - Closed Specialty Diagnoses / Procedures Referred By Contac t Referred To Contact Diagnoses Type 2 diabetes mellitus with hyperglycemia, without long-term current use of insulin (CMS/HCC) Adriane Schultz MD [address] [place] [address] Phone: tel: fax: Referral ID Status Reason Start Date Expiration Date Visits Re quested Visits Authorized [id number] Closed 05/18/2024 05/18/2025 1 1 * Medications - Closed Specialty Diagnoses / Procedures Referred By Contac t Referred To Contact Diagnoses Type 2 diabetes mellitus with hyperglycemia, without long-term current use of insulin (CMS/HCC) Adriane Schultz MD [address] [place] [address] Phone: tel: fax: Referral ID Status Reason Start Date Expiration Date Visits Re quested Visits Authorized [id number] Closed 05/18/2024 05/18/2025 1 1 * Consultation (Routine) - Authorized Specialty Diagnoses / Procedures Referred By Contac t Referred To Contact Pharmacy Diagnoses Type 2 diabetes mellitus with hyperglycemia, without long-term current use of insulin (CMS/HCC) Adriane Schultz MD [address] [place] [address] Phone: tel: fax: Referral ID Status Reason Start Date Expiration Date Visits Requested Visits Authorized [id number] Authorized Consult and Treat 05/18/2024 05/18/2025 6 6 Reason for Visit * Reason Comments heel Pain Encounter Details Date Type Department Care Team (Late st Contact Info) Description 05/18/2024 8:30 AM EDT Office Visit [facility] CHC MED & PEDS [address] [place] [address] Adriane Schultz MD [address] [place] [address] Type 2 diabetes mellitus with hyperglycemia, without long-term current use of insulin (CMS/HCC) (Primary Dx); Hypoglycemic episode in patient with diabetes mellitus (CMS/HCC); Primary hypertension; Plantar fasciitis Social History Tobacco Use Types Packs/Day Years [...] Sign Reading Time Taken Comments Blood Pressure 132/78 05/18/2024 8:42 AM EDT Pulse 86 05/18/2024 8:42 AM EDT Temperature 36.8 ??C (98.3 ??F) 05/18/2024 8:42 AM ED T Respiratory Rate 20 05/18/2024 8:42 AM EDT Oxygen Saturation 98% 05/18/2024 8:42 AM EDT Inhaled Oxygen Concentration - - Weight 137 kg (301 lb) 05/18/2024 8:42 AM EDT Height 180.3 cm (5' 11 ) 05/18/2024 8:42 AM EDT Body Mass Index 41.98 05/18/2024 8:42 AM EDT documented in this encounter Progress Notes * Adriane Schultz MD - 05/18/2024 8:30 AM EDT Subjective Patient ID: Edd Mendieta is a 43 y.o. male who presents for No chief complaint on file.. Diabetes He presents for his follow-up diabetic visit. He has type 2 diabetes mellitus. His disease course has been stable. Hypoglycemia symptoms include dizziness. There are no diabetic associated symptoms. Hypoglycemia complications include required assistance. Symptoms are stable. There are no diabetic complications. Risk factors for coronary artery disease include family history, male sex and sedentary lifestyle. He has had a previous visit with a dietitian. An PAYAL inhibitor/angiotensin II receptor chencho is being taken. Eye exam is current. Review of Systems Constitutional: Negative. Respiratory: Negative. Cardiovascular: Negative. Gastrointestinal: Negative. Genitourinary: Negative. Neurological: Positive for dizziness. Objective Physical Exam Constitutional: Appearance: Normal appearance. Cardiovascular: Rate and Rhythm: Normal rate and regular rhythm. Pulmonary: Effort: Pulmonary effort is normal. Breath sounds: Normal breath sounds. Neurological: General: No focal deficit present. Mental Status: He is alert. Psychiatric: Mood and Affect: Mood normal. Behavior: Behavior normal. Assessment/Plan Diagnoses and all orders for this visit: Type 2 diabetes mellitus with hyperglycemia, without long-term current use of insulin (CMS/HCC) Comments: No changes in meds Advised Low sugar and Low carb diet. Counseled regarding self-monitoring of blood glucose. Counseled re: potential co-morbidities including cardiovascular disease. Counseled re: potential co-morbidities include neuropathy and retinopathy. Orders: - POCT Glucose - Basic Metabolic Panel; Future - Lipid Panel, Standard; Future - Hepatic Function Panel; Future - Hemoglobin A1c; Future - Albumin, Random Urine W/Creatinine; Future - Referral to Pharmacy CDTM - Continuous Glucose Warehouse Examiner (FreeStyle Jeannette 3 [place]) device; 1 each Once per day. Use as directed for CGM - Continuous Glucose Sensor (FreeStyle Jeannette 3 Plus Sensor) misc; 1 each every 15 days. Apply 1 every 15 days as directed for CGM Hypoglycemic episode in patient with diabetes mellitus (CMS/HCC) Comments: pt will benefit from CGM to avoid further hypoglycemic episodes Primary hypertension Comments: Cont same meds Maintain a low-sodium diet (less than 2 grams per day). Maintain a regular cardiovascular exercise program. Advised to maintain a low-fat, low-cholesterol diet. Counseled regarding importance of weight loss. Counseled re: potential co-morbidities including cardiovascular disease. Plantar fasciitis Comments: Advised to ice the soles Cont using orthotic shoes Other orders - dapagliflozin (Farxiga) 10 MG; Take 1 tablet (10 mg) by mouth Once per day. documented in this encounter Plan of Treatment Upcoming Encounters Date Type Department Care Team (Late st Contact Info) Description 07/17/2024 8:00 AM EDT Office Visit [facility] ADULT D[facility]AL [address] [place] [address] Harvinder Newberry Scheduled Orders Name Type Priority Associated Diagnoses Orde r Schedule Basic Metabolic Panel Lab Routine Type 2 diabetes mellitus with hyperglycemia, without long-term current use of insulin (CMS/HCC) Expected: 05/18/2024 (Approximate), Expires: 05/18/2025 Lipid Panel, Standard Lab Routine Type 2 diabetes mellitus with hyperglycemia, without long-term current use of insulin ([facility]) Expected: 05/18/2024 (Approximate), Expires: 05/18/2025 Hepatic Function Panel Lab Routine Type 2 diabetes mellitus with hyperglycemia, without long-term current use of insulin ([facility]) Expected: 05/18/2024 (Approximate), Expires: 05/18/2025 Hemoglobin A1c Lab Routine Type 2 diabetes mellitus with hyperglycemia, without long-term current use of insulin (CMS/[facility]) Expected: 05/18/2024 (Approximate), Expires: 05/18/2025 Albumin, Random Urine W/Creatinine Lab Routine Type 2 diabetes mellitus with hyperglycemia, without long-term current use of insulin ([facility]) Expected: 05/18/2024 (Approximate), Expires: 05/18/2025 Scheduled Referrals Name Type Priority Associated Diagnoses Orde r Schedule Referral to Pharmacy CDTM Outpatient Referral Routine Type 2 diabetes mellitus with hyperglycemia, without long-term current use of insulin ([facility]) Ordered: 05/18/2024 documented as of this encounter Procedures Procedure Name Priority Date/Time Associated Diagnosis Comments POCT GLUCOSE Routine 05/18/2024 9:21 AM EDT Type 2 diabetes mellitus with hyperglycemia, without long-term current use of insulin ([facility]) documented in this encounter Results * POCT Glucose (05/18/2024 9:21 AM EDT) [facility] Glucose Blood, POC 124 60 - 200 mg/dL QC Media Lot # [id number] Lot# Expiration Date 34,025 Blood Capillary blood specimen / Unknown 05/18/2024 9:21 AM EDT Adriane Schultz MD POINT OF CARE TEST ENTER/EDIT OR DERABLES Final Result documented in this encounter Visit Diagnoses Diagnosis Type 2 diabetes mellitus with hyperglycemia, without long-term current use of insulin ([facility])- Primary Hypoglycemic episode in patient with diabetes mellitus ([facility]) Primary hypertension Unspecified essential hypertension Plantar fasciitis Plantar fascial fibromatosis documented in this encounter Additional Health Concerns Assessment Noted Time PHQ-9 Depression Total Score: 19 024 3:19 PM EDT documented as of this encounter Care Teams Batting Machine Operator Insulation Relationship Specialty Start Date End Date Martha Joyner MD [address] [place] [address] PCP - General Family Medicine 02/22/21 [facility] Nurse Practitioner Endocrinology 01/08/24 documented as of this encounter
--- OUTSIDE RECORDS SUMMARY | 2024-05-28 12:44 | XMS_ITS | Encounter Summary ---
Author Organization [employer] Address [address] [place] [address] Care Team Providers Care President And Chief Operating Officer Name Role Phone Martha Joyner MD Primary Care Provider [phone] Reason for Visit * Reason Onset Date Comments Med Refill 03/16/2024 Encounter Details Date Type Department Care Team ([facility] st Contact Info) Description 03/16/2024 Telephone [facility] MEDICINE [address] [place] [address] Martha Joyner MD [address] [place] [address] Med Refill Social History Tobacco Use Types [...] 6.25 MG tablet To be sent to: [facility] documented in this encounter Plan of Treatment Upcoming Encounters Date Type Department Care Team (Late st Contact Info) Description 07/17/2024 8:00 AM EDT Office Visit [facility] ADULT DENTAL [address] [place] [address] Harvinder Newberry documented as of this encounter Visit Diagnoses Not on filedocumented in this encounter Additional Health Concerns Assessment Noted Time PHQ-9 Depression Total Score: 19 024 3:19 PM EDT documented as of this encounter Care Teams President And Chief Operating Officer Relationship Specialty Start Date End Date Martha Joyner MD [address] [place] [address] PCP - General Family Medicine 02/22/21 [facility] Nurse Practitioner Endocrinology 01/08/24 documented as of this encounter
--- OUTSIDE RECORDS SUMMARY | 2024-05-28 12:44 | XMS_ITS | Clinical Summary ---
Author Organization [employer] Address [address] [facility] [address] [place] [address] Care Team Providers Care Vacation Planner Name Role Phone Martha Joyner MD Primary Care Provider [phone] Allergies No known active allergies Medications * This document contains information received from the source organization and may not represent a complete record from that organization. albuterol 108 (90 Base) MCG/ACT inhaler Inhale 2 puffs every 4 (four) hours if needed. 022 Active glucose blood (FREESTYLE LITE) test strip 1 each at bed time. 022 Active lidocaine (Lidoderm) 5 % patch Place 1 patch on the skin at bed time. 022 Active valsartan (Diovan) 320 MG tabletIndicatio ns:Primary hypertension TAKE 1 TABLET BY MOUTH EVERY DAY IN THE MORNING 90 tablet 1 024 Active Ketotifen Fumarate 0.035 % solutionIndicat ions:Itch of eye Administer 1 drop into affected eye(s) 2 times daily. 10 mL 3 024 Active acetic acid-hydrocorti sone (Vosol-HC) otic solutionIndicat ions:Ear itch Administer 4 drops into each ear 2 times daily. 10 mL 3 024 Active allopurinol (Zyloprim) 300 MG tabletIndicatio ns:Gout, unspecified cause, unspecified chronicity, unspecified site TAKE 1 TABLET BY MOUTH EVERY DAY AT BEDTIME 90 tablet 1 024 Active carvedilol (Coreg) 6.25 MG tablet TAKE 1 TABLET BY MOUTH TWICE DAILY IN THE MORNING AND IN THE EVENING WITH MEALS 60 tablet 5 025 Active dapagliflozin (Farxiga) 10 MG Take 1 tablet (10 mg) by mouth Once per day. 30 tablet 11 025 2025 Active Continuous Glucose Site Worker (FreeStyle Jeannette 3 [place]) deviceIndicatio ns:Type 2 diabetes mellitus with hyperglycemia, without long-term current use of insulin (CMS/[facility]) 1 each Once per day. Use as directed for CGM 1 each Active Continuous Glucose Sensor (FreeStyle Jeannette 3 Plus Sensor) miscIndications :Type 2 diabetes mellitus with hyperglycemia, without long-term current use of insulin (CMS/HCC) 1 each every 15 days. Apply 1 every 15 days as directed for CGM 2 each Active clomiPHENE (Clomid) 50 MG tablet TAKE 1 TABLET BY MOUTH DAILY ON ON SATURDAY, SATURDAY AND Saturday Active Mounjaro 12.5 MG/0.5ML solution auto-injector INJECT ONE PEN (=12.5MG) SUBCUTANEOUSLY ONCE A WEEK DIRECTED Active Continuous Blood Gluc Sensor (FreeStyle Jeannette 3 Sensor) [facility] [place] USE DIRECTED TO TEST BLOOD SUGAR CHANGE EVERY 14 DAYS 023 2024 Discontinued(M ed list cleanup (will not trigger notification to Pharmacy)) methocarbamol (Robaxin) 750 MG tabletIndicatio ns:Low back pain at multiple sites Take 1 tablet (750 mg) by mouth 4 times daily for 10 days. 40 tablet 024 2024 Discontinued(M ed list cleanup (will not trigger notification to Pharmacy)) metFORMIN XR (Glucophage-XR) 500 MG 24 hr tabletIndicatio ns:Type 2 diabetes mellitus with hyperglycemia, without long-term current use of insulin (CMS/[facility]) TAKE 2 TABLETS BY MOUTH TWICE DAILY WITH FOOD DO NOT BREAK, CRUSH, DISSOLVE OR CHEW 360 tablet 1 024 2024 Discontinued(D iscontinued by another clinician) Mounjaro 10 MG/0.5ML solution auto-injector 024 2024 Discontinued(D ose adjustment) dapagliflozin (Farxiga) 10 MG Take 1 tablet (10 mg) by mouth Once per day. 30 tablet 11 025 2024 Discontinued(R eorder (will not trigger notification to Pharmacy)) Active Problems Problem Noted Date Diagnosed Date Itch of eye 01/08/2024 PTSD (post-traumatic stress disorder) 09/12/2023 Fractured dental rastafari with loss of materi al 07/31/2023 JERRY [...] Glu = 109 Patient is managed by [facility] endo. His DM2 is trending in the [...] levels. Continue taking mounjaro as perscribed by cook cold meat. Will montior and lower metformin as needed. [...] elevated a1c of 10.7% and glucoe of [facility]. No measuring his glucose at home, [...] organization. Date Type Department Care Team Description 05/26/2024 Travel 05/25/2024 Orders Only GENERIC EXTERNAL DATA DEPARTMENT Provider, Generic External Data 05/18/2024 8:30 AM EDT Office Visit [facility] [address] [place] [address] Adriane Schultz MD Type 2 diabetes mellitus with hyperglycemia, without long-term current use of insulin ([facility]) (Primary Dx); Hypoglycemic episode in patient with diabetes mellitus ([facility]); Primary hypertension; Plantar fasciitis 05/18/2024 Telephone [facility] [address] [place] [address] Martha Joyner MD Change PCP 05/18/2024 Travel 05/06/2024 Telephone [facility] [address] [place] [address] Martha Joyner MD 05/04/[address] [address] Martha Joyner MD Nurse Triage 04/22/2024 8:00 AM EST Office Visit [facility] ADULT D[facility] [address] [place] [address] Roxi Reagan, DMD 04/17/2024 Orders Only GENERIC EXTERNAL DATA DEPARTMENT Provider, Generic External Data 04/16/2024 2:30 PM EST Office Visit [facility] [address] [place] [phone] Anson De Leon MD Stage 3b chronic kidney disease ([facility]) (Primary Dx); Type 2 diabetes mellitus with hyperglycemia, without long-term current use of insulin ([facility]); Congestion of nasal sinus; Albuminuria 04/16/2024 Travel 04/16/[address] [address] Adeola Velásquez RN 04/15/2024 Orders Only GENERIC EXTERNAL DATA DEPARTMENT Provider, Generic External Data 03/27/2024 8:00 AM EST Office Visit [facility] ADULT [facility] [address] [place] [phone] Roxi Reagan, DMD 03/16/[address] [address] Martha Joyner MD Med Refill 03/16/2024 Refill [facility] [address] [place] [phone] Martha Joyner MD 03/06/2024 9:00 AM EST Office Visit [facility] [address] [place] [address] Roxi Reagan DMD from Last 3 Months Immunizations Name Administration [...] Mass Index 41.98 05/18/2024 8:42 AM EDT Plan of Treatment Upcoming Encounters Date Type Department Care Team (Late st Contact Info) Description 07/17/2024 8:00 AM EDT Office Visit [facility] [address] [place] [address] Harvinder Newberry Health Maintenance Due Date Last Done Comments [...] (Patient Refused) Depression Screening 09/11/2024 09/12/2023, 09/12/19 Diabetes: Hemoglobin A1C 11/25/2024 025, 04/15/2024, 08/05/2023, Additional history exists Pneumococcal Vaccine: Pediatrics (0 to 5 Years) and At-Risk Patients (6 to 49) Years) (1 of 2 - PCV) 01/07/2025 Postponed from 06/13/1998 (Patient Refused) Dental X-Ray: Bitewings 01/20/2025 01/20/2024, 10/02 Diabetes: Urine Protein Screening 04/15/2025 04/15/2024, 11/09/2022, 05/18/2022, Additional history exists Tobacco Screening 04/16/2025 04/16/2024 Lipid Panel 05/25/2025 05/25/2024, 04/04, 11/09/2022, Additional history exists Eye Exam 11/18/2025 11/19/2023 Dental X-Ray: Full [...] Procedure Name Priority Date/Time Associated Diagnosis Comments XR CHEST 2 VIEWS Routine 05/25/2024 1:52 PM EDT VITAMIN B12/FOLATE, SERUM PANEL Routine 05/25/2024 6:30 AM EDT INSULIN Routine 05/25/2024 6:30 AM EDT TSH W/REFLEX TO FT4 Routine 05/25/2024 6 :30 AM EDT VITAMIN D,25-OH,TOTAL,IA Routine 05/25/2024 6:30 AM EDT FERRITIN Routine 05/25/2024 6:30 AM EDT LIPID PANEL, STANDARD Routine 05/25/2024 6:30 AM EDT C-REACTIVE PROTEIN Routine 05/25/2024 6: 30 AM EDT IRON AND TOTAL IRON BINDING CAPACITY Routine 05/25/2024 6:30 AM EDT COMPREHENSIVE METABOLIC PANEL Routine 05/25/2024 6:30 AM EDT HEMOGLOBIN A1C Routine 05/25/2024 6:30 AM EDT CBC WITH AUTO DIFFERENTIAL Routine 05/25/2024 6:30 AM EDT POCT GLUCOSE Routine 05/18/2024 9:21 AM EDT Type 2 diabetes mellitus with hyperglycemia, without long-term current use of insulin ([facility]) 2 O AMALGAM - 1 SURF, PRIMARY OR PERMANENT Routine 04/22/2024 8:00 AM EST CASE PRESENTATION, DETAILED AND EXTENSIVE TREATMENT PLANNING Routine 04/22/2024 8:00 AM EST GLUCOSE, WHOLE BLOOD Routine 04/17/2024 8:10 AM EST POCT RAPID COVID ANTIGEN Routine 04/16/2024 3:14 PM EST Congestion of nasal sinus POCT INFLUENZA B Routine 04/16/2024 3:13 PM EST Congestion of nasal sinus POCT INFLUENZA A Routine 04/16/2024 3:13 PM EST Congestion of nasal sinus POCT GLUCOSE Routine 04/16/2024 2:29 PM EST Type 2 diabetes mellitus with hyperglycemia, without long-term current use of insulin ([facility]) LIPID PANEL, STANDARD Routine 04/15/2024 8:29 AM [...] SURF, POSTERIOR Routine 03/06/2024 9:00 AM EST PANORAMIC RADIOGRAPHIC IMAGE Routine 02/13/2024 11:30 AM EST COMPREHENSIVE ORAL EVALUATION - NEW OR ESTABLISHED PATIENT Routine 02/13/2024 11:30 AM EST PROPHYLAXIS - ADULT Routine 01/20/2024 3 :00 PM EST INTRAORAL - COMPLETE SERIES OF RADIOGRAPHIC IMAGES Routine 01/20/2024 3:00 PM EST HEPATITIS C ANTIBODY Routine 11/09/2022 9:00 AM EDT Type 2 diabetes mellitus with hyperglycemia, without long-term current use of insulin (CMS/HCC) HIV 1/2 ANTIGEN/ANTIBODY, FOURTH GENERATION W/RFL Routine 05/26/2021 9:29 AM EDT from Last 3 Months or Most Recently Relevant to Health Maintenance Results * XR Chest 2 Views (05/25/2024 1:52 PM EDT) Anatomical Region Laterality Modality Chest Radiographic Mary ging 05/25/2024 1:52 PM EDT Narrative 05/25/2024 1:54 PM EDT ? [facility] ?[address] ?[place] [address] ?XRay Report ? Signed ? Patient: Fischer Anam,Edd ?MR#: M ?? [id number] ? : 1980 ?Acct:[id number] ? Age/Sex: 43 / M ?ADM Date: 03/24/25 ? Loc: HO.XRAY ? Attending Dr: Obey Mendoza MD ? Ordering Physician: Obey Mendoza MD ?? Date of Service: 05/25/24 ?? Procedure(s): XR chest 2V ?? Accession Number(s): [id number] ? cc: Obey Mendoza MD; Martha Joyner MD ? CLINICAL HISTORY: E66.01 - Morbid (severe) obesity due to excess calories ? 2 view chest x-ray ? Comparison: None ? Findings: ?? No consolidation, pleural effusion or pneumothorax. ?? Borderline heart size normal pulmonary vascularity. ?? No acute fracture. ? IMPRESSION: ?? 1. No acute findings. ? This document has been electronically signed by: Nora Lazcano DO on ?? 05/25/2024 13:52:55 ? Dictated By: ?Nora Lazcano MD ? Signed By: ?<Electronically signed by Nora Lazcano MD in OV> ?05/25/24 1353 ? DD/ 1352 ? TD/TT: 05/25/24 1352 ? Turn Down Attendant: ? Procedure Note Antonella Viramontes - 05/25/[address] [address] XRay Report Signed Patient: Donal Shaw#: M [id number] : 1980Acct:[id number] Age/Sex: 43 / MADM Date: 05/25/24 Loc: HO.TICOAY Attending Dr: bOey Mendoza MD Ordering Physician: Obey Mendoza MD Date of Service: 05/25/24 Procedure(s): XR chest 2V Accession Number(s): [id number] cc: Obey Mendoza MD; Martha Joyner MD CLINICAL HISTORY: E66.01 - Morbid (severe) obesity due to excess calories 2 view chest x-ray Comparison: None Findings: No consolidation, pleural effusion or pneumothorax. Borderline heart size normal pulmonary vascularity. No acute fracture. IMPRESSION: 1. No acute findings. This document has been electronically signed by: Nora Lazcano DO on 05/25/2024 13:52:55 Dictated By: Nora Lazcano MD Signed By: <Electronically signed by Nora Lazcano MD in OV> 05/25/24 1353 DD/ 1352 TD/TT: 05/25/24 1352 Turn Down Attendant: [facility] External Provider IMG XR PROCEDURES Final Result * Vitamin D, 25-Hydroxy, Total, Immunoassay (05/25/2024 6:30 AM EDT) Vitamin D 25-OH Total 67.5 >30 ng/mL [facility] Comment: Health Based Reference Values*< 20 ??ng/mL ??Axvmhryci43-08 ng/mL ??Insufficient> 30 ??ng/mL ??Sufficient*Chris MERINO. N Engl J Med. 2007;357:266-280There is no well-established upper level of normal vitamin Dlevels. Some laboratories use 50 ng/mL as an upper limit ofnormal. However, toxicity is patient-dependent and may occurat any level. Careful correlation with the patient'spresentation is necessary and, if there is concern forvitamin D toxicity, treatment should be consideredirrespective of the serum level.Care must be taken in interpreting Vitamin D results fromdifferent laboratories and methodologies. ??Published datademonstrated that results from patients undergoinghemodialysis may show a negative bias when tested withvarious automated 25-OH vitamin D assays when compared toLC- MS/MS.When testing samples from patients whose predominant form ofVitamin D is Vitamin D2, such as patients receiving VitaminD2 supplementation, results that are subtherapeutic shouldbe confirmed with another method such as LC-MS/MS. 05/25/2024 6:30 AM EDT 05/25/2024 6:30 AM EDT Generic External Data Provider LAB BLOOD ORDERAB LES Final Result [facility] [address] [place] [phone] * (ABNORMAL) Vitamin B12 (Cobalamin) and Folate Panel, Serum (05/25/2024 6:30 AM EDT) Vitamin B12 1,547(H) 200 - 900 pg/mL [facility] Comment:NORMAL 200-900 PG/ML INDETERMINATE 160-199 PG/ML DEFICIENT < 160 PG/ML Folate 10.6 > or = 4.0 ng/mL [facility] Comment:Reference Values:> o r = 4.0 ng/mL< 4.0 ng/mL suggests folate deficiency Methotrexate, aminopterin and folinic acid(leucovorin) are chemotherapeutic agents whose molecularstructures are similar to folate; therefore, the Architectfolate assay cannot be used for patients using these drugs. 05/25/2024 6:30 AM EDT 05/25/2024 6:30 AM EDT Generic External Data Provider LAB BLOOD ORDERAB LES Final Result Performing Organization Address [facility] Co de Phone Number [facility] [address] [place] [phone] * TSH with Reflex to Free T4 (05/25/2024 6:30 AM EDT) [facility] TSH reflex Free T4 2.92 0.32 - 4.0 uIU/mL [facility] 05/25/2024 6:30 AM EDT 05/25/2024 6:30 AM EDT Generic External Data Provider LAB BLOOD ORDERAB LES Final Result Performing Organization Address [facility] Co de Phone Number [facility] [address] [place] [phone] * CBC auto differential (05/25/2024 6:30 AM EDT) [facility] White Blood Count 8.6 4.8 - 10.8 X10*3/uL [facility] Red Blood Count 5.79 4.60 - 5.80 X10*6/uL [facility] Hemoglobin 16.6 14.0 - 18.0 g/dl [facility] Hematocrit 49.1 42.0 - 52.0 % [facility] Mean Corpuscular Volume 84.8 80.0 - 98.0 fL [facility] Mean Corpuscular Hemoglobin 28.7 27.0 - 33.0 pg [facility] Mean Corpuscular HGB Conc 33.8 31.0 - 36.0 g/dl [facility] Red Cell Distribution Width 14.6 11.0 - 16.0 % [facility] Platelet Count 253 160 - 400 X10*3/uL [facility] Mean Platelet Volume 9.4 9.4 - 12.4 fL [facility] Neutrophils Percent Auto 58.2 45 - 73 % [facility] Imm Gran Pct Auto 0.3 0.0 - 0.4 % [facility] Lymphocytes Percent Auto 28.7 20 - 40 % [facility] Monocytes Percent Auto 8.2 2 - 11 % [facility] Eosinophils Percent Auto 3.8 0 - 4 % [facility] Basophils Percent Auto 0.8 0 - 2 % [facility] NRBC Pct Auto 0.0 0.0 - 0.2 /100WBC [facility] Neutrophils Absolute Auto 5.0 2.0 - 8.3 x10*3/uL [facility] Imm Gran Abs Auto 0.03 0.00 - 0.03 X10*3/uL [facility] Lymphocytes Absolute Auto 2.5 1.2 - 4.9 X10*3/uL [facility] Monocytes Absolute Auto 0.7 0.1 - 1.2 X10*3/uL [facility] Eosinophils Absolute Auto 0.3 0.0 - 0.4 X10*3/uL [facility] Basophils Absolute Auto 0.1 0.0 - 0.2 X10*3/uL [facility] NRBC Abs Auto 0.000 0.0 - 0.012 X10*3/uL [facility] 05/25/2024 6:30 AM EDT 05/25/2024 6:30 AM EDT us Generic External Data Provider LAB BLOOD ORDERAB LES Final Result Performing Organization Address [facility]/ZIP Co de Phone Number [facility] [address] [place] [phone] * Iron And Total Iron Binding Capacity (05/25/2024 6:30 AM EDT) Iron 46 45 - 160 mcg/dL [facility] Total Iron Binding Capacity 279 228 - 428 mcg/dL [facility] Percent Iron Saturation 16 15 - 50 % [facility] Unsaturated Iron Binding 233 ug/dL [facility] 05/25/2024 6:30 AM EDT 05/25/2024 6:30 AM EDT Generic External Data Provider LAB BLOOD ORDERAB LES Final Result Performing Organization Address [facility] Phone Number [facility] [address] [place] [phone] * (ABNORMAL) Insulin (05/25/2024 6:30 AM EDT) Pathologist [facility] Insulin 43(H) 2 - 29 uU/mL [facility] Comment:This test was perfor med using the [employer] chemiluminescentmethod. Values obtained from different assay methods cannot beused interchangeably. This insulin assay shows a possiblecross-reactivity with antibodies generated against insulin(immunoreactive insulin and some patients treated withbovine or porcine insulin). Insulin levels may be measuredlower in patients with insulin autoimmune syndrome orfamilial high pro-insulinemia. 05/25/2024 6:30 AM EDT 05/25/2024 6:30 AM EDT us Generic External Data Provider LAB BLOOD ORDERAB LES Final Result Performing Organization Address [facility] Co de Phone Number [facility] [address] [place] [address] [phone] * (ABNORMAL) C-reactive Protein (05/25/2024 6:30 AM EDT) [facility] C Reactive Protein 1.04(H) < or = 0.50 mg/dL [facility] 05/25/2024 6:30 AM EDT 05/25/2024 6:30 AM EDT Generic External Data Provider LAB BLOOD ORDERAB LES Final Result Performing Organization Address [facility] de Phone Number [facility] [address] [place] [phone] * (ABNORMAL) Hemoglobin A1c (05/25/2024 6:30 AM EDT) Only the most recent of2 resultswithin the time period is included. Hemoglobin A1c 6.2(H) <6.0 % [facility] Comment:Hemoglobin A1C Refer ence Range Adults: 4.8 - 6.0 % Non diabetic: < 6.0 % Goal: < 7.0 %Additional Action Suggested: > 8.0 %Note: Hemoglobin A1c results are invalid for patients with abnormal amounts of HbF. Blood transfusions may impact the HbA1c concentration in the patient sample. Estimated Average Glucose 131 mg/dL [facility] Comment:eAG = Estimated ave rage glucose which is %A1C expressed asaverage glucose, using the formula of the [id number] Glucose study (ADAG), Diabetes Care, Vol.31,#8,Oct. 2007 05/25/2024 6:30 AM EDT 05/25/2024 6:30 AM EDT us Generic External Data Provider LAB BLOOD ORDERAB LES Final Result Performing Organization Address [facility] Co de Phone Number [facility] [address] [place] [phone] * Ferritin (05/25/2024 6:30 AM EDT) Ferritin 70 20 - 250 ng/mL [facility] 05/25/2024 6:30 AM EDT 05/25/2024 6:30 AM EDT Generic External Data Provider LAB BLOOD ORDERAB LES Final Result Performing Organization Address City/[facility]/ZIP Co de Phone Number [facility] [address] [place] [phone] * (ABNORMAL) Lipid Panel, Standard (05/25/2024 6:30 AM EDT) Only the most recent of2 resultswithin the time period is included. Triglycerides 120 <150 mg/dL [facility] Comment:Desirable Triglyceri de: less than 150 mg/dLBorderline High Triglyceride 150-199 mg/dLHigh Triglyceride: 200-499 mg/dLVery High Triglyceride: greater than or equal to 5OO mg/dL Cholesterol 139 <200 mg/dL [facility] Comment:Desirable Cholestero l: less than 200 mg/dLBorderline High Cholesterol: 200-239 mg/dLHigh Cholesterol: greater than 239 mg/dL LDL Cholesterol Calculated 80 <100 mg/dL [facility] Comment:Desirable LDL: less than 100 mg/dLNear Optimal/Above Optimal LDL: 110- 129 mg/dLBorderline High LDL: 130-159 mg/dLHigh LDL: 160-189 mg/dLVery High LDL: greater than or equal to 190 mg/dL HDL Cholesterol 35(L) >40 mg/dL [facility] Comment:Desirable HDL: great er than 40 mg/dL Note: This HDL assay may give artificially low results in patients with liver disease. 05/25/2024 6:30 AM EDT 05/25/2024 6:30 AM EDT Generic External Data Provider LAB BLOOD ORDERAB LES Final Result [facility] [address] [place] [address] [phone] * (ABNORMAL) Comprehensive Metabolic Panel (05/25/2024 6:30 AM EDT) Sodium 141 135 - 145 mmol/L [facility] Potassium 4.7 3.3 - 5.1 mmol/L [facility] Chloride 111(H) 96 - 108 mmol/L [facility] Carbon Dioxide 23 22 - 29 mmol/L [facility] Anion Gap 12 12 - 20 [facility] Urea Nitrogen (BUN) 26(H) 9 - 16 mg/dL [facility] Creatinine, Serum 1.31 0.5 - 1.4 mg/dL [facility] Estimated Glomerular Filt Rate 59 [facility] Comment:Chronic Kidney Disea se: Estimated GFR < 60 mL/min/1.92a2Vxzodw Kidney Disease: Estimated GFR < 15 mL/min/1.73m2 Glucose 123(H) 60 - 115 mg/dL [facility] Calcium 9.2 8.4 - 10.2 mg/dL [facility] Bilirubin, Total 0.3 0.0 - 1.0 mg/dL [facility] Aspartate Amino Transferase 29 5 - 37 U/L [facility] Alanine Aminotransferase 29 0 - 40 U/L [facility] Total Protein 7.2 6.5 - 8.0 g/dL [facility] Albumin Level 3.6 3.5 - 5.0 g/dL [facility] Alkaline Phosphatase 66 39 - 117 U/L [facility] 05/25/2024 6:30 AM EDT 05/25/2024 6:30 AM EDT us Generic External Data Provider LAB BLOOD ORDERAB LES Final Result [facility] [address] [place] [phone] * POCT Glucose (05/18/2024 9:21 AM EDT) Only the most recent of2 resultswithin the time period is included. Glucose Blood, POC 124 60 - 200 mg/dL QC Media Lot # [id number] Lot# Expiration Date [id number] Blood Capillary blood specimen / Unknown 05/18/2024 9:21 AM EDT us Adriane Schultz MD POINT OF CARE TEST ENTER/EDIT OR DERABLES Final Result * (ABNORMAL) Glucose, Whole Blood (04/17/2024 8:10 AM EST) [facility] Glucose, Whole Blood 119(H) 60 - 115 mg/dL [facility] Comment:METER #: [id number] Testing performed in the Endocrinology Department [address] , [address], [facility]. 04/17/2024 8:10 AM EST 04/17/2024 8:13 AM EST Generic External Data Provider LAB BLOOD ORDERAB LES Final Result Performing Organization Address City/State/[facility] Co de Phone Number [facility] [address] [place] [phone] * POCT Rapid Covid-19 BinaxNOW (04/16/2024 3:14 PM EST) [facility] Rapid COVID Ag Negative QC Media Lot # [id number] Lot# Expiration Date Swab 04/16/2024 3:14 PM EST Anson Stapleton MD POINT OF CARE TEST ENTER/EDIT ORDERABLES Final Result * POCT Rapid Influenza B OSOM (04/16/2024 3:13 PM EST) [facility] Rapid Influenza B Ag Negative Negative, Indeterminate QC Media Lot # [id number] Lot# Expiration Date Swab 04/16/2024 3:13 PM EST Anson Stapleton MD POINT OF CARE TEST ENTER/EDIT ORDERABLES Final Result * POCT Rapid Influenza A OSOM (04/16/2024 3:13 PM EST) [facility] Rapid Influenza A Ag Negative Negative, Indeterminate QC Media Lot # [id number] Lot# Expiration Date Swab Nasopharyngeal structure / Unknown 04/16/2024 3:13 PM EST Anson Stapleton MD POINT OF CARE TEST ENTER/EDIT ORDERABLES Final Result * (ABNORMAL) Basic Metabolic Panel (04/15/2024 8:29 AM EST) Sodium 139 135 - 145 mmol/L [facility] Potassium 4.6 3.3 - 5.1 mmol/L [facility] Chloride 105 96 - 108 mmol/L [facility] Carbon Dioxide 27 22 - 29 mmol/L [facility] Anion Gap 12 12 - 20 [facility] Urea Nitrogen (BUN) 34(H) 9 - 16 mg/dL [facility] Creatinine, Serum 1.69(H) 0.5 - 1.4 mg/dL [facility] Estimated Glomerular Filt Rate 44 [facility] Comment:Chronic Kidney Disea se: Estimated GFR < 60 mL/min/1.34x0Uyrphn Kidney Disease: Estimated GFR < 15 mL/min/1.73m2 Glucose 117(H) 60 - 115 mg/dL [facility] Calcium 9.1 8.4 - 10.2 mg/dL [facility] 04/15/2024 8:29 AM EST 04/15/2024 8:29 AM EST us Generic External Data Provider LAB BLOOD ORDERAB LES Final Result Performing Organization Address City/State/[facility] Co de Phone Number [facility] [address] [place] [phone] * (ABNORMAL) Albumin, Random Urine W/Creatinine (04/15/2024 8:26 AM EST) Creatinine, Urine 142.30 mg/dL [facility] Microalbumin Urine >2,000.0 mg/L [facility] Microalbum Creatinine Ratio Ur 1,405.4(H ) <30 ug/mg cr [facility] Comment:Albumin/Creatinine R atio Reference Ranges: Normal: < 30 ug/mg creatinine Microalbuminuria: 30 - 300 ug/mg creatinineClinical Albuminuria: > 300 ug/mg creatinine 04/15/2024 8:26 AM EST 04/15/2024 9:32 AM EST us Generic External Data Provider LAB URINE ORDERAB LES Final Result Performing Organization Address [facility] Co de Phone Number [facility] [address] [place] [phone] * Hepatitis C Ab (11/09/2022 9:00 AM EDT) Hepatitis C Antibody Nonreactive Nonreactive [facility] Comment:Antibodies to HCV no t detected; does not exclude early acuteHCV infection. Blood 11/09/2022 9:00 AM EDT 11/09/2022 2:35 PM EDT Martha Joyner MD LAB BLOOD ORDERABLES Final Re sult Performing Organization Address [facility]/ZIP Co de Phone Number [facility] [address] [place] [phone] * HIV 1/2 ANTIGEN/ANTIBODY,FOURTH GENERATION W/RFL (05/26/2021 9:29 AM EDT) HIV-1/2 ANTIGEN AND ANTIBODIES, 4TH GENERATION W/ REFLEX NON-REACT TABITHA NON-REACT TABITHA [facility] Comment: HIV-1 antigen and HIV-1/HIV-2 [...] ? For additional information please refer to http://education.[employer]/faq/VDJ299 (This link is being provided for informational/ educational purposes only.) ? The performance of this assay has not been clinically validated in patients less than 2 years old. ?? 05/26/2021 9:29 AM EDT us Martha Joyner MD LAB BLOOD ORDERABLES Final Re sult [facility] [address] from Last 3 Months or Most Recently Relevant to Health Maintenance Insurance [facility] DENTAL - HSN PARTIAL (MEDICAID) Care Teams Vacation Planner Relationship Specialty Start Date End Date Martha Joyner MD [address] [place] [phone] PCP - General Family Medicine 02/22/21 [facility] Nurse Practitioner Endocrinology 01/08/24
--- OUTSIDE RECORDS SUMMARY | 2024-05-28 12:44 | XMS_ITS | Encounter Summary ---
Author Organization [employer] Address [address] [place] [address] Care Team Providers Care Entertainment Production Professional Name Role Phone Martha Joyner MD Primary Care Provider [phone] Encounter Details Date Type Department Care Team (Latest Contact Info) Description 05/18/2024 Travel Social History Tobacco Use Types Packs/Day [...] 07/17/2024 8:00 AM EDT Office Visit [facility] [address] [place] [address] Harvinder Newberry documented as of this encounter Visit Diagnoses Not on filedocumented in this encounter Additional Health Concerns Assessment Noted Time PHQ-9 Depression Total Score: 19 024 3:19 PM EDT documented as of this encounter Care Teams Entertainment Production Professional Relationship Specialty Start Date End Date Martha Joyner MD [address] [place] [phone] PCP - General Family Medicine 02/22/21 [facility] Nurse Practitioner Endocrinology 01/08/24 documented as of this encounter
--- OUTSIDE RECORDS SUMMARY | 2024-05-28 12:44 | XMS_ITS | Encounter Summary ---
Author Organization [facility] Address [address] [phone] Phone Care Team Providers Care Sleep Technician Name Role Phone Martha Joyner MD Primary Care Provider [phone] Encounter Details Date Type Department Care Team (Late st Contact Info) Description 04/28/2024 Office Communication [facility] [address] [place] [address] Tatianna Lao [address] [place] [address] Social History Tobacco Use Types [...] Visit [facility] [address] [place] [address] Jose Guadalupe Coleman MD [address] [place] [address] [place] [address] documented as of this encounter Visit Diagnoses Not on filedocumented in this encounter Care Teams Sleep Technician Relationship Specialty Start Date End Date Martha Joyner MD PCP - General Family Medicine 06/29/21 documented as of this encounter
--- OUTSIDE RECORDS SUMMARY | 2024-05-28 12:44 | XMS_ITS | Encounter Summary ---
Author Organization [employer] Address [address] [place] [address] Care Team Providers Care Records Supervisor Name Role Phone Martha Joyner MD Primary Care Provider [phone] Reason for Visit * Reason Comments Med Refill Encounter Details Date Type Department Care Team ([facility] Contact Info) Description 01/03/2023 Refill [facility] [address] [place], [place] [phone] Tereza Wagner MD [address] [place] [address] Social History Tobacco Use Types Packs/Day Years [...] Description 07/17/2024 8:00 AM EDT Office Visit [facility] [address] [place] [address] Harvinder Newberry documented as of this encounter Visit Diagnoses Not on filedocumented in this encounter Additional Health Concerns Assessment Noted Time PHQ-9 Depression Total Score: 1 02/15/20 22 4:00 PM EST documented as of this encounter Care Teams Records Supervisor Relationship Specialty Start Date End Date Martha Joyner MD [address] [place] [address] PCP - General Family Medicine 02/22/21 [facility] Nurse Practitioner Endocrinology 01/08/24 documented as of this encounter
--- OUTSIDE RECORDS SUMMARY | 2024-05-28 12:45 | XMS_ITS | Encounter Summary ---
Author Organization [employer] [facility] Address [address] [place] [address] Care Team Providers Care Safety Deposit Boxes Custodian Name Role Phone Martha Joyner MD Primary Care Provider [phone] Encounter Details Date Type Department Care Team (Late st Contact Info) Description 05/25/2024 Orders Only GENERIC EXTERNAL DATA DEPARTMENT [...] 07/17/2024 8:00 AM EDT Office Visit [facility] [address] [place] [address] Harvinder Newberry documented as of this encounter Procedures Procedure Name Priority Date/Time Associated Diagnosis Comments XR CHEST 2 VIEWS Routine 05/25/2024 1:52 PM EDT VITAMIN D,25-OH,TOTAL,IA Routine 05/25/2024 6:30 AM EDT VITAMIN B12/FOLATE, SERUM PANEL Routine 05/25/2024 6:30 AM EDT TSH W/REFLEX TO FT4 Routine 05/25/2024 6 :30 AM EDT CBC WITH AUTO DIFFERENTIAL Routine 05/25/2024 6:30 AM EDT IRON AND TOTAL IRON BINDING CAPACITY Routine 05/25/2024 6:30 AM EDT INSULIN Routine 05/25/2024 6:30 AM EDT C-REACTIVE PROTEIN Routine 05/25/2024 6: 30 AM EDT HEMOGLOBIN A1C Routine 05/25/2024 6:30 AM EDT FERRITIN Routine 05/25/2024 6:30 AM EDT LIPID PANEL, STANDARD Routine 05/25/2024 6:30 AM EDT COMPREHENSIVE METABOLIC PANEL Routine 05/25/2024 6:30 AM EDT documented in this encounter Results * XR Chest 2 Views (05/25/2024 1:52 PM EDT) Anatomical Region Laterality Modality Chest Radiographic Mary ging 05/25/2024 1:52 PM EDT Narrative 05/25/2024 1:54 PM EDT ? [facility] ?[address] ?[place] [phone] ?XRay Report ? Signed ? Patient: Edd Shaw ?MR#: [id number] ?? [id number] ? : 1980 ?Acct:[id number] ? Age/Sex: 43 / M ?ADM Date: 05/25/24 ? Loc: HO.XRAY ? Attending Dr: Obey Mendoza MD ? Ordering Physician: Obey Mendoza MD ?? Date of Service: 05/25/24 ?? Procedure(s): XR chest 2V ?? Accession Number(s): [id number] ? cc: Obey Mendoza MD; Martha Joyner [...] document has been electronically signed by: Nora Lazcano, DO on ?? 05/25/2024 13:52:55 ? Dictated By: ?Nora Lazcano MD ? Signed By: ?<Electronically signed by Nora Lazcano MD in OV> ?05/25/24 1353 ? DD/ ? TD/TT: 05/25/24 1352 ? Handkerchief Presser: ? Procedure Note Antonella Viramontes - 05/25/[address] [address] XRay Report Signed Patient: Donal Shaw#: M [id number] : 1980Acct:[id number] Age/Sex: 43 / MADM Date: 05/25/24 Loc: HO.XRAY Attending Dr: Obey Mendoza MD Ordering Physician: Obey Mendoza MD Date of Service: 05/25/24 Procedure(s): XR chest 2V Accession Number(s): [id number] cc: Obey Mendoza MD; Martha Joyner MD [...] Lazcano MD Signed By: <Electronically signed by Nroa Lazcano MD in OV> 05/25/24 1353 DD/ 1352 TD/TT: 05/25/24 1352 Handkerchief Presser: [facility] External Provider IMG XR PROCEDURES Final Result * (ABNORMAL) Vitamin B12 (Cobalamin) and Folate Panel, Serum (05/25/2024 6:30 AM EDT) Vitamin B12 1,547(H) 200 - 900 pg/mL [facility] Comment:NORMAL 200-900 PG/ML INDETERMINATE 160-199 PG/ML DEFICIENT < 160 PG/ML Folate 10.6 > or = 4.0 ng/mL [facility] Comment:Reference Values:> o r = 4.0 ng/mL< 4.0 ng/mL suggests folate deficiency Methotrexate, aminopterin and folinic acid(leucovorin) are chemotherapeutic agents whose molecularstructures are similar to folate; therefore, the Architectfolate assay cannot be used for patients using these drugs. 05/25/2024 6:30 AM EDT 05/25/2024 6:30 AM EDT Generic External Data Provider LAB BLOOD ORDERAB LES Final Result [facility] [address] [place] [phone] * (ABNORMAL) Insulin (05/25/2024 6:30 AM EDT) Insulin 43(H) 2 - 29 uU/mL [facility] Comment:This test was perfor med using the Dumont chemiluminescentmethod. Values obtained from different assay methods [...] ORDERAB LES Final Result Performing Organization Address [facility]/ZIP Co de Phone Number [facility] [address] [place] [phone] * TSH with Reflex to Free T4 (05/25/2024 6:30 AM EDT) Pathologist [facility] TSH reflex Free T4 2.92 0.32 - 4.0 uIU/mL [facility] 05/25/2024 6:30 AM EDT 05/25/2024 6:30 AM EDT Generic External Data Provider LAB BLOOD ORDERAB LES Final Result Performing Organization Address [facility]/ZIP Co de Phone Number [facility] [address] [place] [phone] * Vitamin D, 25-Hydroxy, Total, Immunoassay (05/25/2024 6:30 AM EDT) Vitamin D 25-OH Total 67.5 >30 ng/mL [facility] Comment: Health Based Reference Values*< 20 ??ng/mL ??Brgbgtnkq30-45 ng/mL ??Insufficient> 30 ??ng/mL ??Sufficient*Holick MF. N Engl J Med. 2007;357:266-280There is no [...] ORDERAB LES Final Result Performing Organization Address [facility]/ZIP Co de Phone Number [facility] [address] [place] [phone] * Ferritin (05/25/2024 6:30 AM EDT) Ferritin 70 20 - 250 ng/mL [facility] 05/25/2024 6:30 AM EDT 05/25/2024 6:30 AM EDT [employer] External Data Provider LAB BLOOD ORDERAB LES Final Result Performing Organization Address [facility] Co de Phone Number [facility] [address] [place] [phone] * (ABNORMAL) Lipid Panel, Standard (05/25/2024 6:30 AM EDT) Triglycerides 120 <150 mg/dL [facility] Comment:Desirable Triglyceri de: less than 150 mg/dLBorderline High Triglyceride 150-199 mg/dLHigh Triglyceride: 200-499 mg/dLVery High Triglyceride: greater than or equal to 5OO mg/dL Cholesterol 139 <200 mg/dL [facility] Comment:Desirable Cholestero l: less than 200 mg/dLBorderline High Cholesterol: 200-239 mg/dLHigh Cholesterol: greater than 239 mg/dL LDL Cholesterol Calculated 80 <100 mg/dL [facility] Comment:Desirable LDL: less than 100 mg/dLNear Optimal/Above Optimal LDL: 110- 129 mg/dLBorderline High LDL: 130-159 mg/dLHigh LDL: 160-189 mg/dLVery High LDL: greater than or equal to 190 mg/dL HDL Cholesterol 35(L) >40 mg/dL [facility] Comment:Desirable HDL: great er than 40 mg/dL Note: This HDL assay may give artificially low results in patients with liver disease. 05/25/2024 6:30 AM EDT 05/25/2024 6:30 AM EDT us Generic External Data Provider LAB BLOOD ORDERAB LES Final Result Performing Organization Address [facility] Co de Phone Number [facility] [address] [place] [phone] * (ABNORMAL) C-reactive Protein (05/25/2024 6:30 AM EDT) C Reactive Protein 1.04(H) < or = 0.50 mg/dL [facility] 05/25/2024 6:3 0 AM EDT 05/25/2024 6:30 AM EDT us Generic External Data Provider LAB BLOOD ORDERAB LES Final Result Performing Organization Address [facility] Co de Phone Number [facility] [address] [place] [phone] * Iron And Total Iron Binding Capacity (05/25/2024 6:30 AM EDT) Iron 46 45 - 160 mcg/dL [facility] Total Iron Binding Capacity 279 228 - 428 mcg/dL [facility] Percent Iron Saturation 16 15 - 50 % [facility] Unsaturated Iron Binding 233 ug/dL [facility] 05/25/2024 6:30 AM EDT 05/25/2024 6:30 AM EDT us Generic External Data Provider LAB BLOOD ORDERAB LES Final Result [facility] [address] [place] [phone] * (ABNORMAL) Comprehensive Metabolic Panel (05/25/2024 6:30 AM EDT) Sodium 141 135 - 145 mmol/L [facility] Potassium 4.7 3.3 - 5.1 mmol/L [facility] Chloride 111(H) 96 - 108 mmol/L [facility] Carbon Dioxide 23 22 - 29 mmol/L [facility] Anion Gap 12 12 - 20 [facility] Urea Nitrogen (BUN) 26(H) 9 - 16 mg/dL [facility] Creatinine, Serum 1.31 0.5 - 1.4 mg/dL [facility] Estimated Glomerular Filt Rate 59 [facility] Comment:Chronic Kidney Disea se: Estimated GFR < 60 mL/min/1.60u0Drksod Kidney Disease: Estimated GFR < 15 mL/min/1.73m2 Glucose 123(H) 60 - 115 mg/dL [facility] Calcium 9.2 8.4 - 10.2 mg/dL [facility] Bilirubin, Total 0.3 0.0 - 1.0 mg/dL [facility] Aspartate Amino Transferase 29 5 - 37 U/L [facility] Alanine Aminotransferase 29 0 - 40 U/L [facility] Total Protein 7.2 6.5 - 8.0 g/dL [facility] Albumin Level 3.6 3.5 - 5.0 g/dL [facility] Alkaline Phosphatase 66 39 - 117 U/L [facility] 05/25/2024 6:30 AM EDT 05/25/2024 6:30 AM EDT Generic External Data Provider LAB BLOOD ORDERAB LES Final Result Performing Organization Address [facility] Co de Phone Number [facility] [address] [place] [phone] * (ABNORMAL) Hemoglobin A1c (05/25/2024 6:30 AM EDT) Hemoglobin A1c 6.2(H) <6.0 % [facility] Comment:Hemoglobin A1C Refer ence Range Adults: 4.8 - 6.0 % Non diabetic: < 6.0 % Goal: < 7.0 %Additional Action Suggested: > 8.0 %Note: Hemoglobin A1c results are invalid for patients with abnormal amounts of HbF. Blood transfusions may impact the HbA1c concentration in the patient sample. Estimated Average Glucose 131 mg/dL [facility] Comment:eAG = Estimated ave rage glucose which is %A1C expressed asaverage glucose, using the formula of the W7X-GewqnutJguukdy Glucose study (ADAG), Diabetes Care, Vol.31,#8,2007 05/25/2024 6:30 AM EDT 05/25/2024 6:30 AM EDT Generic External Data Provider LAB BLOOD ORDERAB LES Final Result Performing Organization Address [facility] Co de Phone Number [facility] [address] [place] [phone] * CBC auto differential (05/25/2024 6:30 AM EDT) White Blood Count 8.6 4.8 - 10.8 X10*3/uL [facility] Red Blood Count 5.79 4.60 - 5.80 X10*6/uL [facility] Hemoglobin 16.6 14.0 - 18.0 g/dl [facility] Hematocrit 49.1 42.0 - 52.0 % [facility] Mean Corpuscular Volume 84.8 80.0 - 98.0 fL [facility] Mean Corpuscular Hemoglobin 28.7 27.0 - 33.0 pg [facility] Mean Corpuscular HGB Conc 33.8 31.0 - 36.0 g/dl [facility] Red Cell Distribution Width 14.6 11.0 - 16.0 % [facility] Platelet Count 253 160 - 400 X10*3/uL [facility] Mean Platelet Volume 9.4 9.4 - 12.4 fL [facility] Neutrophils Percent Auto 58.2 45 - 73 % [facility] Imm Gran Pct Auto 0.3 0.0 - 0.4 % [facility] Lymphocytes Percent Auto 28.7 20 - 40 % [facility] Monocytes Percent Auto 8.2 2 - 11 % [facility] Eosinophils Percent Auto 3.8 0 - 4 % [facility] Basophils Percent Auto 0.8 0 - 2 % [facility] NRBC Pct Auto 0.0 0.0 - 0.2 /100WBC [facility] Neutrophils Absolute Auto 5.0 2.0 - 8.3 x10*3/uL [facility] Imm Gran Abs Auto 0.03 0.00 - 0.03 X10*3/uL [facility] Lymphocytes Absolute Auto 2.5 1.2 - 4.9 X10*3/uL [facility] Monocytes Absolute Auto 0.7 0.1 - 1.2 X10*3/uL [facility] Eosinophils Absolute Auto 0.3 0.0 - 0.4 X10*3/uL [facility] Basophils Absolute Auto 0.1 0.0 - 0.2 X10*3/uL [facility] NRBC Abs Auto 0.000 0.0 - 0.012 X10*3/uL [facility] 05/25/2024 6:30 AM EDT 05/25/2024 6:30 AM EDT us Generic External Data Provider LAB BLOOD ORDERAB LES Final Result [facility] [address] [place] [phone] documented in this encounter Visit Diagnoses Not on filedocumented in this encounter Additional Health Concerns Assessment Noted Time PHQ-9 Depression Total Score: 19 09/11/ 024 3:19 PM EDT documented as of this encounter Care Teams Safety Deposit Boxes Custodian Relationship Specialty Start Date End Date Martha Joyner MD [address] [place] [address] PCP - General Family Medicine 02/22/21 [facility] Nurse Practitioner Endocrinology 01/08/24 documented as of this encounter
--- OUTSIDE RECORDS SUMMARY | 2024-05-28 12:45 | XMS_ITS | Encounter Summary ---
Author Organization [facility] Address [address] 7[address] [place] [address] Care Team Providers Care Pharmacy Coordinator Name Role Phone Martha Joyner MD Primary Care Provider [phone] Encounter Details Date Type Department Care Team (Late Contact Info) Description 02/15/2022 Orders Only [facility] MED & PEDS [address] [place], [place] [phone] Martha Joyner MD 505 [place] [address] Type 2 diabetes mellitus with hyperglycemia, without long-term current use of insulin ([facility]) (Primary Dx) Social History Tobacco Use Types [...] Department Care Team (Late Contact Info) Description 07/17/2024 8:00 AM EDT Office Visit [facility] ADULT DENTAL [address] [place] [address] Harvinder Newberry documented as of this encounter Procedures Procedure Name Priority Date/Time Associated Diagnosis Comments ALBUMIN, RANDOM URINE W/CREATININE Routine 11/09/2022 9:05 AM EDT Type 2 diabetes mellitus with hyperglycemia, without long-term current use of insulin (CMS/HCC) COMPREHENSIVE METABOLIC PANEL, FASTING Routine 11/09/2022 9:00 AM EDT Type 2 diabetes mellitus with hyperglycemia, without long-term current use of insulin (CMS/[facility]) SED RATE BY MODIFIED WESTERGREN Routine 11/09/2022 9:00 AM EDT Type 2 diabetes mellitus with hyperglycemia, without long-term current use of insulin ([facility]) GLUCOSE, WHOLE BLOOD Routine 07/27/2022 2:52 PM EDT Type 2 diabetes mellitus with hyperglycemia, without long-term current use of insulin (CMS/[facility]) ALBUMIN, RANDOM URINE W/CREATININE Routine 05/18/2022 11:59 AM EDT Type 2 diabetes mellitus with hyperglycemia, without long-term current use of insulin (CMS/[facility]) LIPID PANEL, STANDARD Routine 05/18/2022 11:47 AM EDT Type 2 diabetes mellitus with hyperglycemia, without long-term current use of insulin (CMS/[facility]) GLUCOSE, WHOLE BLOOD Routine 05/18/2022 10:23 AM EDT Type 2 diabetes mellitus with hyperglycemia, without long-term current use of insulin (CMS/HCC) documented in this encounter Results * (ABNORMAL) Albumin, Random Urine W/Creatinine (11/09/2022 9:05 AM EDT) Creatinine, Urine 97.12 mg/dL [facility] Microalbumin Urine 900.0 mg/L [facility] Microalbum Creatinine Ratio Ur 926.6(H) <30 ug/mg cr [facility] Comment:Albumin/Creatinine R atio Reference Ranges: Normal: < 30 ug/mg creatinine Microalbuminuria: 30 - 300 ug/mg creatinineClinical Albuminuria: > 300 ug/mg creatinine 11/09/2022 9:05 AM EDT 11/09/2022 2:30 PM EDT Martha Joyner MD LAB URINE ORDERABLES Final Re sult Performing Organization Address [facility] [[email or web address]] de Phone Number [facility] [address] [place] [phone] * (ABNORMAL) Sed Rate by Modified Westergren (11/09/2022 9:00 AM EDT) Erythrocyte Sedimentation Rate 34(H) 0 - 15 MM/HR [facility] Comment:Patients with polycy themia and many hemoglobin abnormalitiesmay have depressed sed rates whereas patients with anemiamay have elevated sed rates. 11/09/2022 9:00 AM EDT 11/09/2022 2:45 PM EDT Martha Joyner MD LAB BLOOD ORDERABLES Final Re sult Performing Organization Address [facility] Phone Number [facility] [address] [place] [phone] * (ABNORMAL) Comprehensive Metabolic Panel, Fasting (11/09/2022 9:00 AM EDT) Sodium 139 135 - 145 mmol/L [facility] Potassium 4.5 3.3 - 5.1 mmol/L [facility] Chloride 106 96 - 108 mmol/L [facility] Carbon Dioxide 25 22 - 29 mmol/L [facility] Anion Gap 13 12 - 20 [facility] Urea Nitrogen (BUN) 26(H) 9 - 16 mg/dL [facility] Creatinine, Serum 1.35 0.5 - 1.4 mg/dL [facility] Estimated Glomerular Filt Rate 58 [facility] Comment:NOTE: For -Am erican individuals, multiply the result by 1.210.Chronic Kidney Disease: Estimated GFR < 60 mL/min/1.96m3Bszbim Kidney Disease: Estimated GFR < 15 mL/min/1.73m2 Glucose Fasting 109(H) 60 - 99 mg/dL [facility] Comment:A fasting glucose fr om 100-125 mg/dl is considered impaired(pre-diabetes). Calcium 10.1 8.4 - 10.2 mg/dL [facility] Bilirubin, Total 0.4 0.0 - 1.0 mg/dL [facility] Aspartate Amino Transferase 30 5 - 37 U/L [facility] Alanine Aminotransferase 27 0 - 40 U/L [facility] Total Protein 7.5 6.5 - 8.0 g/dL [facility] Albumin Level 3.9 3.5 - 5.0 g/dL [facility] Alkaline Phosphatase 78 39 - 117 U/L [facility] 11/09/2022 9:00 AM EDT 11/09/2022 2:45 PM EDT Martha Joyner MD LAB BLOOD ORDERABLES Final Re sult Performing Organization Address [facility]/ZIP Co de Phone Number [facility] [address] [place] [phone] * (ABNORMAL) Glucose, Whole Blood (07/27/2022 2:52 PM EDT) Glucose, Whole Blood 183(H) 60 - 115 mg/dL [facility] Comment:METER #: [id number] 5Testing performed in the Endocrinology Department [address] , [address], [facility]. 07/27/2022 2:52 PM EDT 07/27/2022 2:56 PM EDT [facility] External Provider LAB BLO OD ORDERABLES Final Result Performing Organization Address [facility]/ZIP Co de Phone Number [facility] [address] [place] [address] [phone] * Albumin, Random Urine W/Creatinine (05/18/2022 11:59 AM EDT) Creatinine, Urine 72.74 mg/dL [facility] Microalbumin Urine 747.0 mg/L [facility] Microalbum Creatinine Ratio Ur 1,026.9 ug/mg cr [facility] Comment:Albumin/Creatinine R atio Reference Ranges: Normal: < 30 ug/mg creatinine Microalbuminuria: 30 - 300 ug/mg creatinineClinical Albuminuria: > 300 ug/mg creatinine 05/18/2022 11:5 9 AM EDT 05/18/2022 1:23 PM EDT us [facility] External Provider LAB URI NE ORDERABLES Final Result [facility] [address] [place] [phone] * Lipid Panel, Standard (05/18/2022 11:47 AM EDT) Triglycerides 243 mg/dL [facility] Comment:Desirable Triglyceri de: less than 150 mg/dLBorderline High Triglyceride 150-199 mg/dLHigh Triglyceride: 200-499 mg/dLVery High Triglyceride: greater than or equal to 5OO mg/dL Cholesterol 152 mg/dL [facility] Comment:Desirable Cholestero l: less than 200 mg/dLBorderline High Cholesterol: 200-239 mg/dLHigh Cholesterol: greater than 239 mg/dL LDL Cholesterol Calculated 70 mg/dl [facility] Comment:Desirable LDL: less than 100 mg/dLNear Optimal/Above Optimal LDL: 110- 129 mg/dLBorderline High LDL: 130-159 mg/dLHigh LDL: 160-189 mg/dLVery High LDL: greater than or equal to 190 mg/dL HDL Cholesterol 34 mg/dL [facility] Comment:Desirable HDL: great er than 40 mg/dL Note: This HDL assay may give artificially low results in patients with liver disease. 05/18/2022 11:4 7 AM EDT 05/18/2022 1:23 PM EDT [facility] External Provider LAB BLO OD ORDERABLES Final Result Performing Organization Address [facility] [[email or web address]] de Phone Number [facility] [address] [place] [address] [phone] * (ABNORMAL) Glucose, Whole Blood (05/18/2022 10:23 AM EDT) Glucose, Whole Blood 172(H) 60 - 115 mg/dL [facility] Comment:METER #: [id number] 5Testing performed in the Endocrinology Department [address] , [address], [facility]. 05/18/2022 10:2 3 AM EDT 05/18/2022 10:28 AM EDT [facility] External Provider LAB BLO OD ORDERABLES Final Result Performing Organization Address [email or web address]] de Phone Number [facility] [address] [place] [address] [phone] documented in this encounter Visit Diagnoses Diagnosis Type 2 diabetes mellitus with hyperglycemia, without long-term current use of insulin ([facility])- Primary documented in this encounter Additional Health Concerns Assessment Noted Time PHQ-9 Depression Total Score: 1 02/15/20 22 4:00 PM EST documented as of this encounter Care Teams Pharmacy Coordinator Relationship Specialty Start Date End Date Martha Joyner MD [address] [place] [phone] PCP - General Family Medicine 02/22/21 [facility] Nurse Practitioner Endocrinology 01/08/24 documented as of this encounter
--- OUTSIDE RECORDS SUMMARY | 2024-05-28 12:45 | XMS_ITS | Encounter Summary ---
Author Organization [employer] Address [address] [place] [address] Care Team Providers Care Director Of Pharmacy Name Role Phone Martha Joyner MD Primary Care Provider [phone] Encounter Details Date Type Department Care Team (Late st Contact Info) Description 03/13/2023 Telephone [facility] MED[facility]INE [address] [place] [address] Martha Joyner MD [address] [place], [place] [phone] Social History Tobacco Use Types Packs/Day Years [...] indicated. Report faxed at this time to [phone] documented in this encounter Plan of Treatment Upcoming Encounters Date Type Department Care Team (Late st Contact Info) Description 07/17/2024 8:00 AM EDT Office Visit [facility] ADULT DENTAL [address] [place] [address] Harvinder Newberry documented as of this encounter Visit Diagnoses Not on filedocumented in this encounter Additional Health Concerns Assessment Noted Time PHQ-9 Depression Total Score: 1 02/15/20 22 4:00 PM EST documented as of this encounter Care Teams Director Of Pharmacy Relationship Specialty Start Date End Date Martha Joyner MD [address] [place] [phone] PCP - General Family Medicine 02/22/21 [facility] Nurse Practitioner Endocrinology 01/08/24 documented as of this encounter
--- OUTSIDE RECORDS SUMMARY | 2024-05-28 12:45 | XMS_ITS | Encounter Summary ---
Author Organization [email or web address] Address [address] [place] [address] Care Team Providers Care Vegetable Harvest Worker Name Role Phone Martha Joyner MD Primary Care Provider [phone] Reason for Visit * Reason Comments Med Refill Encounter Details Date Type Department Care Team ([facility] Contact Info) Description 05/30/2023 Refill [facility] MED & PEDS [address] [place], [place] [phone] Martha Joyner MD 505 [place] [address] Primary hypertension Social History Tobacco Use Types [...] Description 07/17/2024 8:00 AM EDT Office Visit [facility] ADULT DENTAL [address] [place] [address] Harvinder Newberry documented as of this encounter Visit Diagnoses Diagnosis Primary hypertension Unspecified essential hypertension documented in this encounter Additional Health Concerns Assessment Noted Time PHQ-9 Depression Total Score: 1 02/15/20 22 4:00 PM EST documented as of this encounter Care Teams Vegetable Harvest Worker Relationship Specialty Start Date End Date Martha Joyner MD [address] [place] [phone] PCP - General Family Medicine 02/22/21 [facility] Nurse Practitioner Endocrinology 01/08/24 documented as of this encounter
--- OUTSIDE RECORDS SUMMARY | 2024-05-28 12:45 | XMS_ITS | Encounter Summary ---
Author Organization [facility] Address [address] [address] Phone Care Team Providers Care Harbor Pilot Name Role Phone Martha Joyner MD Primary Care Provider [phone] Encounter Details Date Type Department Care Team (Late st Contact Info) Description 06/29/2021 Documentation Only [facility] [address] [place] [phone] Martha Joyner MD [address] [place] [address] [phone] Social History Tobacco Use Types Packs/Day Years [...] Visit [facility] [address] [place] [address] Jose Guadalupe Coleman MD [address] [place] [address] [place] [phone] documented as of this encounter Visit Diagnoses Not on filedocumented in this encounter Care Teams Harbor Pilot Relationship Specialty Start Date End Date Martha Joyner MD PCP - General Family Medicine 06/29/21 documented as of this encounter
--- OUTSIDE RECORDS SUMMARY | 2024-05-28 12:45 | XMS_ITS | Encounter Summary ---
Author Organization [facility] Address [address] [address] Phone Care Team Providers Care Coding Machine Operator Name Role Phone Martha Joyner MD Primary Care Provider [phone] Encounter Details Date Type Department Care Team (Late st Contact Info) Description 06/29/2021 Documentation Only [facility] [address] [place] [phone] Martha Joyner MD [address] [place] [phone] Social History Tobacco Use Types Packs/Day Years [...] Visit [facility] [address] [place] [address] Jose Guadalupe Coleman MD [address] [place] [address] [place] [phone] documented as of this encounter Visit Diagnoses Not on filedocumented in this encounter Care Teams Coding Machine Operator Relationship Specialty Start Date End Date Martha Joyner MD PCP - General Family Medicine 06/29/21 documented as of this encounter
--- OUTSIDE RECORDS SUMMARY | 2024-05-28 12:45 | XMS_ITS | Encounter Summary ---
Author Organization [employer] Address [address] [facility] 7t [place] [address] Care Team Providers Care Greige Goods Inspector Name Role Phone Martha Joyner MD Primary Care Provider [phone] Reason for Visit * Reason Onset Date Comments Change PCP 05/18/2024 Encounter Details Date Type Department Care Team ([facility] Contact Info) Description 05/18/2024 Telephone [facility] MED [facility]EDS [address] [place] [address] Martha Joyner MD [address] [place] [address] Change PCP Social History Tobacco Use Types Packs/Day Years [...] encounter Miscellaneous Notes * Telephone Encounter - Liana Almanza - 05/18/2024 8:48 AM EDT Patient in for appt and pt ins is assigned to other pcp outside facility. Patient was informed to call [facility] and change pcp info to pt understood and will call as well Pt gave consent for our Ins Enrollment to change pcp under [facility] Ins site. It will take place change of pcp change 3-5 wor hazel days. documented in this encounter Plan of Treatment Upcoming Encounters Date Type Department Care Team (Late st Contact Info) Description 07/17/2024 8:00 AM EDT Office Visit [facility] ADULT DENTAL [address] [place] [address] Harvinder Newberry documented as of this encounter Visit Diagnoses Not on filedocumented in this encounter Additional Health Concerns Assessment Noted Time PHQ-9 Depression Total Score: 19 024 3:19 PM EDT documented as of this encounter Care Teams Greige Goods Inspector Relationship Specialty Start Date End Date Martha Joyner MD [address] [place] [address] PCP - General Family Medicine 02/22/21 [facility] Nurse Practitioner Endocrinology 01/08/24 documented as of this encounter
--- OUTSIDE RECORDS SUMMARY | 2024-05-28 12:45 | XMS_ITS | Encounter Summary ---
Author Organization [employer] Address [address] [place] [address] Care Team Providers Care Field Crop I Farmworker Name Role Phone Martha Joyner MD Primary Care Provider [phone] Encounter Details Date Type Department Care Team ([facility] st Contact Info) Description 05/01/2023 Telephone [facility] CHC MED & PEDS [address] [place], [place] [phone] Martha Joyner MD [address] [place], [place] [phone] Social History Tobacco Use Types Packs/Day Years [...] 8:00 AM EDT Office Visit [facility] ADULT DENTAL [address] [place] [address] Harvinder Newberry documented as of this encounter Visit Diagnoses Not on filedocumented in this encounter Additional Health Concerns Assessment Noted Time PHQ-9 Depression Total Score: 1 02/15/20 22 4:00 PM EST documented as of this encounter Care Teams Field Crop I Farmworker Relationship Specialty Start Date End Date Martha Joyner MD [address] [place] [address] PCP - General Family Medicine 02/22/21 [facility] Nurse Practitioner Endocrinology 01/08/24 documented as of this encounter
--- OUTSIDE RECORDS SUMMARY | 2024-05-28 12:45 | XMS_ITS | Encounter Summary ---
Author Organization [employer] Address [address] [place] [address] Care Team Providers Care Community Arts Worker Name Role Phone Martha Joyner MD Primary Care Provider [phone] Reason for Visit * Reason Comments Med Refill Encounter Details Date Type Department Care Team ([facility] Contact Info) Description 07/21/2023 Refill [facility] CH[facility] MED & PEDS [address] [place], [place] [phone] Martha Joyner MD 505 [place] [address] Type 2 diabetes mellitus with hyperglycemia, without long-term current use of insulin ([facility]) Social History Tobacco Use Types Packs/Day Years [...] Description 07/17/2024 8:00 AM EDT Office Visit [facility] ADULT DENTAL [address] [place] [address] Harvinder Newberry documented as of this encounter Visit Diagnoses Diagnosis Type 2 diabetes mellitus with hyperglycemia, without long-term current use of insulin ([facility]) documented in this encounter Additional Health Concerns Assessment Noted Time PHQ-9 Depression Total Score: 17 024 5:09 PM EDT documented as of this encounter Care Teams Community Arts Worker Relationship Specialty Start Date End Date Martha Joyner MD [address] [place] [phone] PCP - General Family Medicine 02/22/21 [facility] Nurse Practitioner Endocrinology 01/08/24 documented as of this encounter
--- OUTSIDE RECORDS SUMMARY | 2024-05-28 12:45 | XMS_ITS | Encounter Summary ---
Author Organization [facility], Address [address] [place] [address] Phone Care Team Providers Care Tuckpointer Cleaner Caulker Name Role Phone Martha Joyner MD Primary Care Provider [phone] Encounter Details Date Type Department Care Team (Late st Contact Info) Description 04/30/2024 Orders Only [facility] [place], [address] [place] [address] Jose Guadalupe Coleman MD [address] [place] [address] [place] [address] Social History Tobacco Use Types [...] Visit [facility] [address] [place] [address] Jose Guadalupe Coleman MD [address] [place] [address] [place] [address] documented as of this encounter [...] Creatinine, Ur 169.1 Not Estab. mg/dL [facility] Protein, Ur 454.4 Not Estab. mg/dL [facility] Comment: Results confirmed on dilution. Urine Protein/Creati nine Ratio 2,687(H) 0 - 200 mg/g creat [facility] 04/30/2024 7:23 AM EST 04/30/2024 Jose Guadalupe Coleman MD LAB URINE ORDERABLES Final Result [facility] [address] [place] [address] * (ABNORMAL) Renal Function Panel (04/30/2024 7:23 AM EST) Glucose 125(H) 70 - 99 mg/dL [facility] BUN 21 6 - 24 mg/dL [facility] Creatinine 1.49(H) 0.76 - 1.27 mg/dL [facility] eGFR CKD-EPI CR 2020 59(L) >59 mL/min/1.7 3 [facility] BUN/Creatinine Ratio 14 9 - 20 [facility] Sodium 139 134 - 144 mmol/L [facility] Potassium 4.4 3.5 - 5.2 mmol/L [facility] Chloride 104 96 - 106 mmol/L [facility] Bicarbonate (CO2) 20 20 - 29 mmol/L [facility] Calcium 9.2 8.7 - 10.2 mg/dL [facility] Albumin 3.8(L) 4.1 - 5.1 g/dL [facility] Phosphorus 3.6 2.8 - 4.1 mg/dL [facility] 04/30/2024 7:23 AM EST 04/30/2024 Jose Guadalupe Coleman MD LAB BLOOD ORDERABLES Final Result Performing Organization Address City/[facility]/ZIP Co de Phone Number [facility] [address] [place] [address] * Microscopic Examination (04/30/2024 7:23 AM EST) WBC, Urine 0-5 0 - 5 /hpf [facility] RBC, Urine 0-2 0 - 2 /hpf [facility] Squamous Epithelial, Urine None seen 0 - 10 /hpf [facility] Casts None seen None seen /lpf [facility] Bacteria, Urine None seen None seen/Few [facility] 04/30/2024 7:23 AM EST 04/30/2024 Jose Guadalupe Coleman MD LAB MICROBIOLOGY - GENERAL ORDERABLES Final Result Performing Organization Address City/[facility]/ZIP Co de Phone Number [facility] [address] [place] [address] * (ABNORMAL) Urinalysis with microscopic (04/30/2024 7:23 AM EST) Specific Hugo, Urine 1.029 1.005 - 1.030 [facility] [phone] pH Urine 6.0 5.0 - 7.5 [facility] Color, Urine Yellow Yellow [facility] Appearance Urine Clear Clear [facility] [place] WBC Esterase Urine Negative Negative [facility] [phone] Protein, Ur 3+(A) Negative/Tra ce [facility] [phone] Glucose, Ur 3+(A) Negative [facility] Ketones, Urine Negative Negative [facility] [place] Blood Urine Negative Negative [facility] Bilirubin Urine Negative Negative [facility] [place] [phone] Urobilinogen Urine 0.2 0.2 - 1.0 mg/dL [facility] [phone] Nitrite, Urine Negative Negative [facility] Microscopic Examination See below: [facility] Comment:Microscopic was gloria cated and was performed. 04/30/2024 7:23 AM EST 04/30/2024 us Jose Guadalupe Coleman MD LAB URINE ORDERABLES Final Result [facility] [address] [place] [address] documented in this encounter Visit Diagnoses Not on filedocumented in this encounter Care Teams Tuckpointer Cleaner Caulker Relationship Specialty Start Date End Date Martha Joyner MD PCP - General Family Medicine 06/29/21 documented as of this encounter
== END 2024-05-28 11:23 | disposition home or self-care (01) ==
LOC: HO.HBST 10:05
PROVIDERS: PCP Family Medicine; Visit Provider Counselor Mental Health
DX: F43.20 Adjustment disorder, unspecified (principal)
CPT/HCPCS: 90791

== ENCOUNTER → 2024-05-28 10:05 | Outpatient (BNVA) | payer OTHER, SELFPAY | PROVIDERS: PCP Family Medicine; Visit Provider Counselor Mental Health ==

== ENCOUNTER 2024-06-16 08:12 | Outpatient (AMB) | payer OTHER, SELFPAY ==
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
--- OUTSIDE RECORDS SUMMARY | 2024-06-16 08:17 | XMS_ITS | Encounter Summary ---
Author Organization [employer] Address [address] [place] [address] Care Team Providers Care Senior Geologist Name Role Phone Martha Joyner MD Primary Care Provider [phone] Reason for Visit * Reason Onset Date Comments Nurse Triage 11/20/2023 Encounter Details Date Type Department Care Team ([facility] st Contact Info) Description 11/20/2023 Telephone [facility] MEDICINE [address] [place] [address] Martha Joyner MD [address] [place] [address] Nurse Triage Social History Tobacco Use Types [...] Left voice message to call [facility] triage line at [phone] [phone]. * Telephone Encounter - Ragnel Razo - 11/20/2023 2:03 PM EDT Symptoms: [...] Description 07/17/2024 8:00 AM EDT Office Visit [facility] ADULT DENTAL [address] [place] [address] Harvinder Newberry documented as of this encounter Visit Diagnoses Not on filedocumented in this encounter Additional Health Concerns Assessment Noted Time PHQ-9 Depression Total Score: 19 024 3:19 PM EDT documented as of this encounter Care Teams Senior Geologist Relationship Specialty Start Date End Date Martha Joyner MD [address] [place] [address] PCP - General Family Medicine 02/22/21 [facility] Practitioner Endocrinology 01/08/24 documented as of this encounter
--- OUTSIDE RECORDS SUMMARY | 2024-06-16 08:18 | XMS_ITS | Encounter Summary ---
Author Organization [employer] Address [address] [place] [address] Care Team Providers Care Asphalt Patcher Name Role Phone Martha Joyner MD Primary Care Provider [phone] Reason for Visit * Reason Comments Med Refill Encounter Details Date Type Department Care Team ([facility] Contact Info) Description 03/11/2023 Telephone [facility] [address] [place], [place] [id number] Martha Joyner MD [address] [place] [address] Med Refill Social History Tobacco Use Types [...] note were not included. MD Deya Bryson [facility] Peds Nurses Caller: Unspecified (Yesterday, 1:10 PM) Hi! Please could you follow up on the urology referral I placed, and if a appointment already givencould it be scheduled as soon as possible? TC placed to [facility] urology @ [phone] to see if patient has been seen [...] chart. TC placed to [facility] @ [phone] to request U/S report be faxed to [facility]rology @ [phone]. They faxed it. TC placed to patient to encourage him to make a sooner appointment with urology or at least keep his upcoming appointment. No answer. LM to call us back. Routing to Dr. Doran so he is aware and back to [facility] nurses so they can try again. Patient has f/u with PCP scheduled for 04/02/23. Notes added to appointment for that day. documented in this encounter Plan of Treatment Upcoming Encounters Date Type Department Care Team (Late st Contact Info) Description 07/17/2024 8:00 AM EDT Office Visit [facility] [address] [place] [address] Harvinder Newberry documented as of this encounter Visit Diagnoses Not on filedocumented in this encounter Additional Health Concerns Assessment Noted Time PHQ-9 Depression Total Score: 1 02/15/20 22 4:00 PM EST documented as of this encounter Care Teams Asphalt Patcher Relationship Specialty Start Date End Date Martha Joyner MD [address] [place] [id number] PCP - General Family Medicine 02/22/21 [facility] Nurse Practitioner Endocrinology 01/08/24 documented as of this encounter
--- OUTSIDE RECORDS SUMMARY | 2024-06-16 08:18 | XMS_ITS | Encounter Summary ---
Author Organization [facility] Address [address] [address] Phone Care Team Providers Care Him Director Name Role Phone Martha Joyner MD Primary Care Provider [phone] Encounter Details Date Type Department Care Team (Late st Contact Info) Description 06/29/2021 Documentation Only [facility] [address] [place] [phone] Martha Joyner MD [address] [place] [id number] Social History Tobacco Use Types Packs/Day Years [...] Visit [facility] [address] [place] [place] [address] Jose Guadalupe Coleman MD [address] [place] [address] [place] [id number] documented as of this encounter Visit Diagnoses Not on filedocumented in this encounter Care Teams Him Director Relationship Specialty Start Date End Date Martha Joyner MD PCP - General Family Medicine 06/29/21 documented as of this encounter
--- OUTSIDE RECORDS SUMMARY | 2024-06-16 08:18 | XMS_ITS | Encounter Summary ---
Author Organization [facility] Address [address] [address] Phone Care Team Providers Care Loan Closer Name Role Phone Martha Joyner MD Primary Care Provider [phone] Encounter Details Date Type Department Care Team (Late st Contact Info) Description 06/29/2021 Documentation Only [facility] [address] [place] [place] [phone] Martha Joyner MD [address] [place] [address] [id number] Social History Tobacco Use Types Packs/Day Years [...] [facility] [address] [place] [place] [address] Jose Guadalupe Coleman MD [address] [place] [address] [place] [phone] documented as of this encounter Visit Diagnoses Not on filedocumented in this encounter Care Teams Loan Closer Relationship Specialty Start Date End Date Martha Joyner MD PCP - General Family Medicine 06/29/21 documented as of this encounter
--- OUTSIDE RECORDS SUMMARY | 2024-06-16 08:18 | XMS_ITS | Encounter Summary ---
Author Organization [employer] Address [address] [facility] [facility] [address] [place] [address] Care Team Providers Care Nurse Ldr Name Role Phone Martha Joyner MD Primary Care Provider [phone] Reason for Visit * Reason Onset Date Comments Med Refill 03/16/2024 Encounter Details Date Type Department Care Team ([facility] st Contact Info) Description 03/16/2024 Telephone [facility] [address] [place] [address] Martha Joyner MD [address] [place] [address] Med Refill Social History Tobacco Use Types [...] Description 07/17/2024 8:00 AM EDT Office Visit [facility] ADULT D[facility]AL [address] [place] [address] Harvinder Newberry documented as of this encounter Visit Diagnoses Not on filedocumented in this encounter Additional Health Concerns Assessment Noted Time PHQ-9 Depression Total Score: 19 024 3:19 PM EDT documented as of this encounter Care Teams Nurse Ldr Relationship Specialty Start Date End Date Martha Joyner MD [address] [place] [address] PCP - General Family Medicine 02/22/21 [facility] Nurse Practitioner Endocrinology 01/08/24 documented as of this encounter
--- OUTSIDE RECORDS SUMMARY | 2024-06-16 08:18 | XMS_ITS | Clinical Summary ---
Author Organization [employer] Address [address] [facility] [address] [place] [address] Care Team Providers Care Sales And Support Center Agent Name Role Phone Martha Joyner MD Primary Care Provider [phone] Allergies No known active allergies Medications * [...] tablet 11 025 2025 Active Continuous Glucose Air Cargo Specialist (FreeStyle Jeannette 3 [place]) deviceIndicatio ns:Type 2 diabetes mellitus with hyperglycemia, without long-term current use of insulin (CMS/[facility]) 1 each Once per day. Use [...] hyperglycemia, without long-term current use of insulin (CMS/[facility]ER[facility]) TAKE 2 TABLETS BY MOUTH TWICE [...] PTSD (post-traumatic stress disorder) 09/12/2023 Fractured dental faith with loss of materi al 07/31/2023 JERRY [...] Glu = 109 Patient is managed by [facility]. His DM2 is trending in the [...] levels. Continue taking mounjaro as perscribed by client services vice president. Will montior and lower metformin as needed. [...] elevated a1c of 10.7% and glucoe of [facility]. No measuring his glucose at home, will [...] and Trimethoprim-Polymyxin B. Dizziness 05/21/2022 05/13/2023 Encounters Date Type Department Care Team Description 06/07/2024 Refill [facility] [address] [place] [address] Martha Joyner MD Type 2 diabetes mellitus with hyperglycemia, without long-term current use of insulin ([facility]) 05/26/2024 Travel 05/25/2024 Orders Only GENERIC EXTERNAL DATA DEPARTMENT Provider, Generic External Data 05/18/2024 8:30 AM EDT Office Visit [facility] MED [facility] PEDS [address] [place] [address] Adriane Schultz MD Type 2 diabetes mellitus with hyperglycemia, without long-term current use of insulin (CMS/HCC) (Primary Dx); Hypoglycemic episode in patient with diabetes mellitus (CMS/HCC); Primary hypertension; Plantar fasciitis 05/18/2024 Telephone [facility] [address] [place] [address] Martha Joyner MD Change PCP 05/18/2024 Travel 05/06/2024 Telephone [facility] [address] [place] [address] Martha Joyner MD 05/04/[address] [address] Martha Joyner MD Nurse Triage 04/22/2024 8:00 AM EST Office Visit [facility] ADULT DENTAL [address] [place] [address] Roxi Reagan DMD 04/17/2024 Orders Only GENERIC EXTERNAL DATA DEPARTMENT Provider, Generic External Data 04/16/2024 2:30 PM EST Office Visit [facility] [address] [place] [address] Anson De Leon MD Stage 3b chronic kidney disease (CMS/HCC) (Primary Dx); Type 2 diabetes mellitus with hyperglycemia, without long-term current use of insulin (CMS/HCC); Congestion of nasal sinus; Albuminuria 04/16/2024 Travel 04/16/2024 Telephone [facility] MEDIC[facility] [address] [place] [phone] Adeola Velásquez RN 04/15/2024 Orders Only GENERIC EXTERNAL DATA DEPARTMENT Provider, Generic External Data 03/27/2024 8:00 AM EST Office Visit [facility] ADULT DENTAL [address] [place] [address] Roxi Reagan DMD from Last 3 Months [...] [facility] [address] [place] [address] Harvinder Newberry Health Maintenance Due Date Last Done Comments Anal Pap 1979 CT Colonography 1979 Colonoscopy 1979 Colorectal Cancer Screening 1979 FIT DNA/Cologuard 1979 FIT 1979 FOBT 1979 Sigmoidoscopy 1979 Diabetes: Foot Exam 06/13/1989 Alcohol/Substance Use Screening 1991 Family Planning (PISQ) 06/13/1994 Hepatitis A Vaccines (1 of 2 - Risk 2-dose series) 06/13/1998 Hepatitis B Vaccines (1 of 3 - 19+ 3-dose series) 06/13/1998 COVID-19 Vaccine ( season) 2023 02/21/2022, 08/03/2021 Depression Monitoring 03/14/2024 09/12/2023, 024 Dental Prophylaxis 07/20/2024 01/20/2024 SDOH Screening 07/25/2024 07/26/2023 Dental Oral Exam 08/14/2024 02/13/2024 Influenza Vaccine (#1) 2024 Postp oned from 11/03/2023 (Patient Refused) Depression Screening 09/11/2024 09/12/2023, 09/12/19 24 Diabetes: Hemoglobin A1C 11/25/2024 025, 04/15/2024, 08/05/2023, [...] VIEWS Routine 05/25/2024 1:52 PM EDT VITAMIN B1 Routine 05/25/2024 6:30 AM EDT ZINC Routine 05/25/2024 6:30 AM EDT VITAMIN A Routine 05/25/2024 6:30 AM EDT VITAMIN B12/FOLATE, [...] hyperglycemia, without long-term current use of insulin ([facility]) 2 O [place] - 1 SURF, [...] of insulin (CMS/HCC) LIPID PANEL, STANDARD Routine 04/15/2024 8:29 AM EST BASIC METABOLIC PANEL Routine 04/15/2024 8:29 AM EST HEMOGLOBIN A1C Routine 04/15/2024 8:29 AM EST ALBUMIN, RANDOM URINE W/CREATININE Routine 04/15/2024 8:26 AM EST CASE PRESENTATION, DETAILED AND EXTENSIVE TREATMENT PLANNING Routine 03/27/2024 8:00 AM EST 3 MO RESIN-BASED COMPOSITE - 2 SURF, POSTERIOR Routine 03/27/2024 8:00 AM EST PANORAMIC RADIOGRAPHIC IMAGE Routine 02/13/2024 [...] EDT Narrative 05/25/2024 1:54 PM EDT ? [facility] ?[address] ?[place] [address] ?XRay Report ? Signed ? Patient: Fischer Anam,Edd ?MR#: [id number] ?? [id number] ? : 1980 ?Acct:[id number] ? Age/Sex: 43 / M ?ADM Date: 03/24/25 ? Loc: HO.XRAY ? Attending Dr: Obey Mendoza MD ? Ordering Physician: Obey Mendoza MD ?? Date of Service: 05/25/24 ?? Procedure(s): XR chest 2V ?? Accession Number(s): [id number] ? cc: Obey Mendoza MD; Martha Joyner [...] DD/ 1352 ? TD/TT: 05/25/24 1352 ? Cardiac Cath Rn: ? Procedure Note Blazeter, Image - 05/25/[address] [address] XRay Report Signed Patient: Donal Shaw#: M [id number] : 1980Acct:[id number] Age/Sex: 43 / MADM Date: 05/25/24 Loc: [facility] Attending Dr: Obey Mendoza MD Ordering Physician: Obey Mendoza MD Date of Service: 05/25/24 Procedure(s): XR chest 2V Accession Number(s): [id number] cc: Obey Mendoza MD; Martha Joyner MD [...] 05/25/24 1353 DD/ 1352 TD/TT: 05/25/24 1352 [facility]: [facility] External Provider IMG XR PROCEDURES Final Result * Vitamin D, 25-Hydroxy, Total, Immunoassay (05/25/2024 6:30 AM EDT) Vitamin D 25-OH Total 67.5 >30 ng/mL [facility] Comment: Health Based Reference Values*< 20 ??ng/mL ??Jtyloyolc60-46 ng/mL ??Insufficient> 30 ??ng/mL ??Sufficient*Chris MERINO. N [...] Provider LAB BLOOD ORDERAB LES Final Result [facility] [address] [place] [phone] * (ABNORMAL) Vitamin B12 (Cobalamin) and Folate Panel, Serum (05/25/2024 6:30 AM EDT) Pathologist [facility] Vitamin B12 1,547(H) 200 - 900 pg/mL [facility] Comment:NORMAL 200-900 PG/ML INDETERMINATE 160-199 PG/ML DEFICIENT < 160 PG/ML Folate 10.6 > or = 4.0 ng/mL [facility] Comment:Reference Values:> o r = 4.0 ng/mL< 4.0 ng/mL suggests folate deficiency Methotrexate, aminopterin and folinic acid(leucovorin) are chemotherapeutic agents whose molecularstructures are similar to folate; therefore, the Architectfolate assay cannot be used for patients using these drugs. 05/25/2024 6:30 AM EDT 05/25/2024 6:30 AM EDT Generic External Data Provider LAB BLOOD ORDERAB LES Final Result Performing Organization Address [facility]/ZIP Co de Phone Number [facility] [address] [place] [phone] * TSH with Reflex to Free T4 (05/25/2024 6:30 AM EDT) [facility] TSH reflex Free T4 2.92 0.32 - 4.0 uIU/mL [facility] 05/25/2024 6:30 AM EDT 05/25/2024 6:30 AM EDT Generic External Data Provider LAB BLOOD ORDERAB LES Final Result Performing Organization Address [facility]/ZIP Co de Phone Number [facility] [address] [place] [phone] * CBC auto differential (05/25/2024 6:30 AM EDT) [facility] White Blood Count 8.6 4.8 - 10.8 X10*3/uL [facility] Red Blood Count 5.79 4.60 - 5.80 X10*6/uL [facility] Hemoglobin 16.6 14.0 - 18.0 g/dl [facility] Hematocrit 49.1 42.0 - 52.0 % [facility] Mean Corpuscular Volume 84.8 80.0 - 98.0 fL [facility] Mean Corpuscular Hemoglobin 28.7 27.0 - 33.0 pg [facility] Mean Corpuscular HGB Conc 33.8 31.0 - 36.0 g/dl [facility] Red Cell Distribution Width 14.6 11.0 - 16.0 % [facility] Platelet Count 253 160 - 400 X10*3/uL [facility] Mean Platelet Volume 9.4 9.4 - 12.4 fL [facility] Neutrophils Percent Auto 58.2 45 - 73 % [facility] Imm Gran Pct Auto 0.3 0.0 - 0.4 % [facility] Lymphocytes Percent Auto 28.7 20 - 40 % [facility] Monocytes Percent Auto 8.2 2 - 11 % [facility] Eosinophils Percent Auto 3.8 0 - 4 % [facility] Basophils Percent Auto 0.8 0 - 2 % [facility] NRBC Pct Auto 0.0 0.0 - 0.2 /100WBC [facility] Neutrophils Absolute Auto 5.0 2.0 - 8.3 x10*3/uL [facility] Imm Gran Abs Auto 0.03 0.00 - 0.03 X10*3/uL [facility] Lymphocytes Absolute Auto 2.5 1.2 - 4.9 X10*3/uL [facility] Monocytes Absolute Auto 0.7 0.1 - 1.2 X10*3/uL [facility] Eosinophils Absolute Auto 0.3 0.0 - 0.4 X10*3/uL [facility] Basophils Absolute Auto 0.1 0.0 - 0.2 X10*3/uL [facility] NRBC Abs Auto 0.000 0.0 - 0.012 X10*3/uL [facility] 05/25/2024 6:30 AM EDT 05/25/2024 6:30 AM EDT us Generic External Data Provider LAB BLOOD ORDERAB LES Final Result Performing Organization Address [facility] Co de Phone Number [facility] [address] [place] [phone] * Iron And Total Iron Binding Capacity (05/25/2024 6:30 AM EDT) Pathologist [facility] Iron 46 45 - 160 mcg/dL [facility] Total Iron Binding Capacity 279 228 - 428 mcg/dL [facility] Percent Iron Saturation 16 15 - 50 % [facility] Unsaturated Iron Binding 233 ug/dL [facility] 05/25/2024 6:30 AM EDT 05/25/2024 6:30 AM EDT Generic External Data Provider LAB BLOOD ORDERAB LES Final Result Performing Organization Address [facility] Phone Number [facility] [address] [place] [phone] * (ABNORMAL) Insulin (05/25/2024 6:30 AM EDT) [facility] Insulin 43(H) 2 - 29 uU/mL [facility] Comment:This test was perfor med [...] ORDERAB LES Final Result Performing Organization Address [facility] Co de Phone Number [facility] [address] [place] [phone] * Zinc (05/25/2024 6:30 AM EDT) Zinc 76 60 - 130 mcg/dL [facility] Comment:This test was develo ped and its analytical performancecharacteristics have been determined by [employer] [place], [place]. It hasnot been cleared or approved by the .S. Food and DrugAdministration. This assay has been validated pursuantto the CLIA regulations and is used for clinicalpurposes.THIS TEST WAS PERFORMED AT:[employer] [id number] [place] [address]APZFVDOLAURY ELLIS MD,PHD 05/25/2024 6:30 AM EDT 05/25/2024 6:30 AM EDT Generic External Data Provider LAB BLOOD ORDERAB LES Final Result Performing Organization Address [facility] Co de Phone Number [facility] [address] [place] [address] [phone] * Vitamin A (05/25/2024 6:30 AM EDT) Vitamin A (Retinol) 74 38 - 98 mcg/dL [facility] Comment:Vitamin supplementat ion within 24 hours prior toblood draw may affect the accuracy of the results.This test was developed and its analytical performancecharacteristics have been determined by [employer] [place], [place]. It hasnot been cleared or approved by the U.S. Food and DrugAdministration. This assay has been validated pursuantto the CLIA regulations and is used for clinicalpurposes.THIS TEST WAS PERFORMED AT:[employer] [id number] [place] [address]LLRQRNGLAURY ELLIS MD,PHD 05/25/2024 6:30 AM EDT 05/25/2024 6:30 AM EDT Generic External Data Provider LAB BLOOD ORDERAB LES Final Result Performing Organization Address [facility]/ZIP Co de Phone Number [facility] [address] [place] [phone] * (ABNORMAL) C-reactive Protein (05/25/2024 6:30 AM EDT) [facility] C Reactive Protein 1.04(H) < or = 0.50 mg/dL [facility] 05/25/2024 6:30 AM EDT 05/25/2024 6:30 AM EDT Generic External Data Provider LAB BLOOD ORDERAB LES Final Result Performing Organization Address City/[facility]/ZIP Co de Phone Number [facility] [address] [place] [phone] * Vitamin B1 (05/25/2024 6:30 AM EDT) [facility] Vitamin B1 21 8 - 30 nmol/L [facility] Comment:Vitamin supplementat ion within 24 hours prior toblood draw may affect the accuracy of the results.This test was developed and its analytical performancecharacteristics have been determined by [employer] [facility], [place]. It hasnot been cleared or approved by the U.S. Food and DrugAdministration. This assay has been validated pursuantto the CLIA regulations and is used for clinicalpurposes.THIS TEST WAS PERFORMED AT:[employer]/[facility] [id number] [place] [address]LAWICAGLAURY ELLIS MD,PHD 05/25/2024 6:30 AM EDT 05/25/2024 6:30 AM EDT Generic External Data Provider LAB BLOOD ORDERAB LES Final Result Performing Organization Address [facility]/ZIP Co de Phone Number [facility] [address] [place] [phone] * (ABNORMAL) Hemoglobin A1c (05/25/2024 6:30 AM EDT) Only the most recent of2 resultswithin the time period is included. Hemoglobin A1c 6.2(H) <6.0 % [facility] Comment:Hemoglobin A1C Refer ence Range Adults: 4.8 - 6.0 % Non diabetic: < 6.0 % Goal: < 7.0 %Additional Action Suggested: > 8.0 %Note: Hemoglobin A1c results are invalid for patients with abnormal amounts of HbF. Blood transfusions may impact the HbA1c concentration in the patient sample. Estimated Average Glucose 131 mg/dL [facility] Comment:eAG = Estimated ave rage glucose which is %A1C expressed asaverage glucose, using the formula of the J9V-RlvbsvoEcoldvg Glucose study (ADAG), Diabetes Care, Vol.31,#8,2007 05/25/2024 6:30 AM EDT 05/25/2024 6:30 AM EDT us Generic External Data Provider LAB BLOOD ORDERAB LES Final Result Performing Organization Address [facility] Co de Phone Number [facility] [address] [place] [phone] * Ferritin (05/25/2024 6:30 AM EDT) Pathologist [facility] Ferritin 70 20 - 250 ng/mL [facility] 05/25/2024 6:30 AM EDT 05/25/2024 6:30 AM EDT Generic External Data Provider LAB BLOOD ORDERAB LES Final Result Performing Organization Address [facility] Co de Phone Number [facility] [address] [place] [phone] * (ABNORMAL) Lipid Panel, Standard (05/25/2024 6:30 AM EDT) Only the most recent of2 resultswithin the time period is included. Triglycerides 120 <150 mg/dL [facility] Comment:Desirable Triglyceri de: less than 150 mg/dLBorderline High Triglyceride 150-199 mg/dLHigh Triglyceride: 200-499 mg/dLVery High Triglyceride: greater than or equal to 5OO mg/dL Cholesterol 139 <200 mg/dL [facility] Comment:Desirable Cholestero l: less than 200 mg/dLBorderline High Cholesterol: 200-239 mg/dLHigh Cholesterol: greater than 239 mg/dL LDL Cholesterol Calculated 80 <100 mg/dL [facility] Comment:Desirable LDL: less than 100 mg/dLNear Optimal/Above Optimal LDL: 110- 129 mg/dLBorderline High LDL: 130-159 mg/dLHigh LDL: 160-189 mg/dLVery High LDL: greater than or equal to 190 mg/dL HDL Cholesterol 35(L) >40 mg/dL [facility] Comment:Desirable HDL: great er than 40 mg/dL Note: This HDL assay may give artificially low results in patients with liver disease. 05/25/2024 6:30 AM EDT 05/25/2024 6:30 AM EDT us Generic External Data Provider LAB BLOOD ORDERAB LES Final Result [facility] [address] [place] [phone] * (ABNORMAL) Comprehensive Metabolic Panel (05/25/2024 6:30 AM EDT) Sodium 141 135 - 145 mmol/L [facility] Potassium 4.7 3.3 - 5.1 mmol/L [facility] Chloride 111(H) 96 - 108 mmol/L [facility] Carbon Dioxide 23 22 - 29 mmol/L [facility] Anion Gap 12 12 - 20 [facility] Urea Nitrogen (BUN) 26(H) 9 - 16 mg/dL [facility] Creatinine, Serum 1.31 0.5 - 1.4 mg/dL [facility] Estimated Glomerular Filt Rate 59 [facility] Comment:Chronic Kidney Disea se: Estimated GFR < 60 mL/min/1.70c8Dpbxre Kidney Disease: Estimated GFR < 15 mL/min/1.73m2 Glucose 123(H) 60 - 115 mg/dL [facility] Calcium 9.2 8.4 - 10.2 mg/dL [facility] Bilirubin, Total 0.3 0.0 - 1.0 mg/dL [facility] Aspartate Amino Transferase 29 5 - 37 U/L [facility] Alanine Aminotransferase 29 0 - 40 U/L [facility] Total Protein 7.2 6.5 - 8.0 g/dL [facility] Albumin Level 3.6 3.5 - 5.0 g/dL [facility] Alkaline Phosphatase 66 39 - 117 U/L [facility] 05/25/2024 6:30 AM EDT 05/25/2024 6:30 AM EDT Generic External Data Provider LAB BLOOD ORDERAB LES Final Result Performing Organization Address City/[facility] Co de Phone Number [facility] [address] [place] [phone] * POCT Glucose (05/18/2024 9:21 AM EDT) Only the most recent of2 resultswithin the time period is included. Glucose Blood, POC 124 60 - 200 mg/dL [employer] Media Lot # [id number] Lot# Expiration Date Blood Capillary blood specimen / Unknown 05/18/2024 9:21 AM EDT us Adriane Schultz MD POINT OF CARE TEST ENTER/EDIT OR DERABLES Final Result * (ABNORMAL) Glucose, Whole Blood (04/17/2024 8:10 AM EST) Glucose, Whole Blood 119(H) 60 - 115 mg/dL [facility] Comment:METER #: [id number] Testing performed in the Endocrinology Department [address] , [address], [facility]. 04/17/2024 8:10 AM EST 04/17/2024 8:13 AM EST us Generic External Data Provider LAB BLOOD ORDERAB LES Final Result [facility] [address] [place] [phone] * POCT Rapid Covid-19 BinaxNOW (04/16/2024 3:14 PM EST) [facility] Rapid COVID Ag Negative QC Media Lot # [id number] Lot# Expiration Date 7,026 Swab 04/16/2024 3:14 PM EST Anson Stapleton MD POINT OF CARE TEST ENTER/EDIT ORDERABLES Final Result * POCT Rapid Influenza B OSOM (04/16/2024 3:13 PM EST) [facility] Rapid Influenza B Ag Negative Negative, Indeterminate QC Media Lot # [id number] Lot# Expiration Date Swab 04/16/2024 3:13 PM EST Anson Stapleton MD POINT OF CARE TEST ENTER/EDIT ORDERABLES Final Result * POCT Rapid Influenza A OSOM (04/16/2024 3:13 PM EST) [facility] Rapid Influenza A Ag Negative Negative, Indeterminate QC Media Lot # [id number] Lot# Expiration Date Swab Nasopharyngeal structure / Unknown 04/16/2024 3:13 PM EST Anson Stapleton MD POINT OF CARE TEST ENTER/EDIT ORDERABLES Final Result * (ABNORMAL) Basic Metabolic Panel (04/15/2024 8:29 AM EST) [facility] Sodium 139 135 - 145 mmol/L [facility] Potassium 4.6 3.3 - 5.1 mmol/L [facility] Chloride 105 96 - 108 mmol/L [facility] Carbon Dioxide 27 22 - 29 mmol/L [facility] Anion Gap 12 12 - 20 [facility] Urea Nitrogen (BUN) 34(H) 9 - 16 mg/dL [facility] Creatinine, Serum 1.69(H) 0.5 - 1.4 mg/dL [facility] Estimated Glomerular Filt Rate 44 [facility] Comment:Chronic Kidney Disea se: Estimated GFR < 60 mL/min/1.35d7Jrfxcn Kidney Disease: Estimated GFR < 15 mL/min/1.73m2 Glucose 117(H) 60 - 115 mg/dL [facility] Calcium 9.1 8.4 - 10.2 mg/dL [facility] 04/15/2024 8:29 AM EST 04/15/2024 8:29 AM EST us Generic External Data Provider LAB BLOOD ORDERAB LES Final Result Performing Organization Address [facility] Co de Phone Number [facility] [address] [place] [phone] * (ABNORMAL) Albumin, Random Urine W/Creatinine (04/15/2024 8:26 AM EST) Creatinine, Urine 142.30 mg/dL [facility] Microalbumin Urine >2,000.0 mg/L [facility] Microalbum Creatinine Ratio Ur 1,405.4(H ) <30 ug/mg cr [facility] Comment:Albumin/Creatinine R atio Reference Ranges: Normal: < 30 ug/mg creatinine Microalbuminuria: 30 - 300 ug/mg creatinineClinical Albuminuria: > 300 ug/mg creatinine 04/15/2024 8:26 AM EST 04/15/2024 9:32 AM EST us Generic External Data Provider LAB URINE ORDERAB LES Final Result Performing Organization Address [facility] Co de Phone Number [facility] [address] [place] [address] [phone] * Hepatitis C Ab (11/09/2022 9:00 AM EDT) Hepatitis C Antibody Nonreactive Nonreactive [facility] Comment:Antibodies to HCV no t detected; does not exclude early acuteHCV infection. Blood 11/09/2022 9:0 0 AM EDT 11/09/2022 2:35 PM EDT us Martha Joyner MD LAB BLOOD ORDERABLES Final Re sult Performing Organization Address [facility] Co de Phone Number [facility] [address] [place] [phone] * HIV 1/2 ANTIGEN/ANTIBODY,FOURTH GENERATION W/RFL (05/26/2021 9:29 AM EDT) HIV-1/2 ANTIGEN AND ANTIBODIES, 4TH GENERATION W/ REFLEX NON-REACT TABITHA NON-REACT TABITHA [facility] Comment: HIV-1 antigen and HIV-1/HIV-2 [...] ? For additional information please refer to [email or web address]/[email or web address] (This link is being provided for informational/ educational purposes only.) ? The performance of this assay has not been clinically validated in patients less than 2 years old. ?? 05/26/2021 9:29 AM EDT us Martha Joyner MD LAB BLOOD ORDERABLES Final Re sult Performing Organization Address [facility] Co de Phone Number [facility] [address] from Last 3 Months or Most Recently Relevant to Health Maintenance Insurance [facility] DENTAL - [place] PARTIAL (MEDICAID) Care Teams Sales And Support Center Agent Relationship Specialty Start Date End Date Martha Joyner MD [address] [place] [phone] PCP - General Family Medicine 02/22/21 [facility] Nurse Practitioner Endocrinology 01/08/24
--- OUTSIDE RECORDS SUMMARY | 2024-06-16 08:18 | XMS_ITS | Encounter Summary ---
Author Organization [employer] [facility] Address [address] [place] [address] 7t [place] [address] Care Team Providers Care Commuter Pilot Name Role Phone Martha Joyner MD Primary Care Provider [phone] Reason for Visit * Reason Comments Med Refill Encounter Details Date Type Department Care Team (Late st Contact Info) Description 10/15/2022 Refill [facility] [address] [place] [address] Martha Joyner MD [address] [place] [address] Type 2 diabetes mellitus with hyperglycemia, without long-term current use of insulin ([facility]) Social History Tobacco Use Types [...] 8:00 AM EDT Office Visit [facility] ADULT [facility] [address] [place] [address] Harvinder Deutsch documented as of this encounter Visit Diagnoses Diagnosis Type 2 diabetes mellitus with hyperglycemia, without long-term current use of insulin ([facility]) documented in this encounter Additional Health Concerns Assessment Noted Time PHQ-9 Depression Total Score: 1 02/15/20 22 4:00 PM EST documented as of this encounter Care Teams Commuter Pilot Relationship Specialty Start Date End Date Martha Joyner MD [address] [place] [address] PCP - General Family Medicine 02/22/21 [facility] Nurse Practitioner Endocrinology 01/08/24 documented as of this encounter
--- OUTSIDE RECORDS SUMMARY | 2024-06-16 08:18 | XMS_ITS | Encounter Summary ---
Author Organization [employer] Address [address] 7t [place] [address] Care Team Providers Care Supervisor Ore Dressing Name Role Phone Martha Joyner MD Primary Care Provider [phone] Reason for Visit * Reason Comments Med Refill Encounter Details Date Type Department Care Team ([facility] Contact Info) Description 05/30/2023 Refill [facility] MED & PEDS [address] [place], [place] [phone] Martha Joyner MD 505 [place] [address] Primary hypertension Social History Tobacco Use Types [...] Description 07/17/2024 8:00 AM EDT Office Visit [facility] ADULT D[facility]AL [address] [place] [address] Harvinder Newberry documented as of this encounter Visit Diagnoses Diagnosis Primary hypertension Unspecified essential hypertension documented in this encounter Additional Health Concerns Assessment Noted Time PHQ-9 Depression Total Score: 1 02/15/20 22 4:00 PM EST documented as of this encounter Care Teams Supervisor Ore Dressing Relationship Specialty Start Date End Date Martha Joyner MD [address] [place] [address] PCP - General Family Medicine 02/22/21 [facility] Nurse Practitioner Endocrinology 01/08/24 documented as of this encounter
--- OUTSIDE RECORDS SUMMARY | 2024-06-16 08:18 | XMS_ITS | Encounter Summary ---
Author Organization [employer] Address [address] 7t [place] [address] Care Team Providers Care Biology Lecturer Name Role Phone Martha Joyner MD Primary Care Provider [phone] Reason for Visit * Reason Comments Med Refill Encounter Details Date Type Department Care Team ([facility] Contact Info) Description 07/21/2023 Refill [facility] MED & PEDS [address] [place], [place] [phone] Martha Joyner MD 505 [place] [address] Type 2 diabetes mellitus with hyperglycemia, without long-term current use of insulin ([facility]) Social History Tobacco Use Types Packs/Day [...] [facility] ADULT DENTAL [address] [place] [address] Harvinder Newberry documented as of this encounter Visit Diagnoses Diagnosis Type 2 diabetes mellitus with hyperglycemia, without long-term current use of insulin ([facility]) documented in this encounter Additional Health Concerns Assessment Noted Time PHQ-9 Depression Total Score: 17 024 5:09 PM EDT documented as of this encounter Care Teams Biology Lecturer Relationship Specialty Start Date End Date Martha Joyner MD [address] [place] [phone] PCP - General Family Medicine 02/22/21 [facility] Nurse Practitioner Endocrinology 01/08/24 documented as of this encounter
--- OUTSIDE RECORDS SUMMARY | 2024-06-16 08:18 | XMS_ITS | Encounter Summary ---
Author Organization [employer] Address [address] 7t [place] [address] Care Team Providers Care Harbor Boat Pilot Name Role Phone Martha Joyner MD Primary Care Provider [phone] Encounter Details Date Type Department Care Team ([facility] st Contact Info) Description 05/01/2023 Telephone [facility] CHC MED & PEDS [address] [place], [place] [phone] Martha Joyner MD [address] [place], [place] [phone] Social History Tobacco Use Types Packs/Day Years [...] [facility] ADULT DENTAL [address] [place] [address] Harvinder Newberry documented as of this encounter Visit Diagnoses Not on filedocumented in this encounter Additional Health Concerns Assessment Noted Time PHQ-9 Depression Total Score: 1 02/15/20 22 4:00 PM EST documented as of this encounter Care Teams Harbor Boat Pilot Relationship Specialty Start Date End Date Martha Joyner MD [address] [place] [address] PCP - General Family Medicine 02/22/21 [facility] Nurse Practitioner Endocrinology 01/08/24 documented as of this encounter
--- OUTSIDE RECORDS SUMMARY | 2024-06-16 08:18 | XMS_ITS | Clinical Summary ---
Author Organization [facility], Address [address] [place] [address] [place] [address] Phone Care Team Providers Care Permanent Mold Supervisor Name Role Phone Martha Joyner MD Primary Care Provider [phone] Allergies Active Allergy Reactions Criticality Noted Date [...] DAILY UNTIL FINISHED 3 Active TechLite Pen Gurley 31G X 5 MM misc USE DAILY [...] Blood Gluc Sensor (FreeStyle Jeannette 3 Sensor) [facility] USE DIRECTED TO TEST BLOOD SUGAR CHANGE [...] Only [facility] [place] [address] Jose Guadalupe Coleman MD 04/28/2024 Office Communication [facility], [address] [place] [address] Tatianna Lao from Last 3 [...] Visit [facility], [address] [place] [address] Jose Guadalupe Coleman MD [address] [facility] [place] [address] Health Maintenance Due Date Last Done Comments Hepatitis B Vaccine (1 of 3 - 19+ 3-dose series) 06/13/1998 Pneumococcal Vaccine: Peds ( 0 to 5 Years) and At-Risk Patients (6 to 49 Years) (1 of 2 - PCV) 06/13/1998 Diabetes: Ophthalmology Exam 07/07/2021 Diabetes: Pedal Pulse Checked 07/07/2021 Diabetes: Sensory Foot Exam 07/07/2021 Diabetes: Visual Foot Exam 07/07/2021 Diabetes: Hemoglobin A1C 08/25/2024 025, 04/15/2024, 08/05/2023, Additional history exists Influenza Vaccine (Season Ended) 2024 Procedures Procedure Name Priority Date/Time Associated Diagnosis [...] Urine 0-5 0 - 5 /hpf [facility] RBC, Urine 0-2 0 - 2 /hpf [facility] Squamous Epithelial, Urine None seen 0 - 10 /hpf [facility] Casts None seen None seen /lpf [facility] Bacteria, Urine None seen None seen/Few [facility] 04/30/2024 7:23 AM EST 04/30/2024 Jose Guadalupe Coleman MD LAB MICROBIOLOGY - GENERAL ORDERABLES Final Result Performing Organization Address City/[facility]/ZIP Co de Phone Number [facility] [address] [place] [address] * (ABNORMAL) Protein, Total, Random Urine w/Creatinine (Protein/Creat Ratio) (04/30/2024 7:23 AM EST) Creatinine, Ur 169.1 Not Estab. mg/dL [facility] Protein, Ur 454.4 Not Estab. mg/dL [facility] Comment: Results confirmed on dilution. Urine Protein/Creati nine Ratio 2,687(H) 0 - 200 mg/g creat [facility] 04/30/2024 7:23 AM EST 04/30/2024 Jose Guadalupe Coleman MD LAB URINE ORDERABLES Final Result Performing Organization Address [facility]/ZIP Co de Phone Number [facility] [address] [place] [address] * (ABNORMAL) Urinalysis with microscopic (04/30/2024 7:23 AM EST) Specific [place], Urine 1.029 1.005 - 1.030 [facility] pH Urine 6.0 5.0 - 7.5 [facility] Color, Urine Yellow Yellow [facility] Appearance Urine Clear Clear [facility] WBC Esterase Urine Negative Negative [facility] Protein, Ur 3+(A) Negative/Tra ce [facility] Glucose, Ur 3+(A) Negative [facility] [phone] Ketones, Urine Negative Negative [facility] Blood Urine Negative Negative [facility] Bilirubin Urine Negative Negative [facility] Urobilinogen Urine 0.2 0.2 - 1.0 mg/dL [facility] Nitrite, Urine Negative Negative [facility] [phone] Microscopic Examination See below: [facility] [phone] Comment:Microscopic was gloria cated and was performed. 04/30/2024 7:23 AM EST 04/30/2024 us Jose Guadalupe Coleman MD LAB URINE ORDERABLES Final Result [facility] [address] [place] [address] * (ABNORMAL) Renal Function Panel (04/30/2024 7:23 AM EST) Glucose 125(H) 70 - 99 mg/dL [facility] BUN 21 6 - 24 mg/dL [facility] Creatinine 1.49(H) 0.76 - 1.27 mg/dL [facility] eGFR CKD-EPI CR 2020 59(L) >59 mL/min/1.7 3 [facility] BUN/Creatinine Ratio 14 9 - 20 [facility] Sodium 139 134 - 144 mmol/L [facility] Potassium 4.4 3.5 - 5.2 mmol/L [facility] Chloride 104 96 - 106 mmol/L [facility] Bicarbonate (CO2) 20 20 - 29 mmol/L [facility] Calcium 9.2 8.7 - 10.2 mg/dL [facility] Albumin 3.8(L) 4.1 - 5.1 g/dL [facility] Phosphorus 3.6 2.8 - 4.1 mg/dL [facility] 04/30/2024 7:23 AM EST 04/30/2024 us Jose Guadalupe Coleman MD LAB BLOOD ORDERABLES Final Result [facility] [address] [place] [address] from Last 3 Months Insurance [facility] Plan ([id number]) Care Teams Permanent Mold Supervisor Relationship Specialty Start Date End Date Martha Joyner MD PCP - General Family Medicine 06/29/21
--- OUTSIDE RECORDS SUMMARY | 2024-06-16 08:18 | XMS_ITS | Encounter Summary ---
Author Organization [facility] Address [address] [address] Phone Care Team Providers Care Biscuit Machine Operator Name Role Phone Martha Joyner MD Primary Care Provider [phone] Encounter Details Date Type Department Care Team (Late st Contact Info) Description 06/29/2021 Documentation Only [facility] [address] [place] [phone] Martha Joyner MD [address] [place] [address] [phone] Social History Tobacco Use Types Packs/Day Years [...] Visit [facility] [address] [place] [address] Jose Guadalupe Coleman MD [address] [place] [address] [place] [phone] documented as of this encounter Visit Diagnoses Not on filedocumented in this encounter Care Teams Biscuit Machine Operator Relationship Specialty Start Date End Date Martha Joyner MD PCP - General Family Medicine 06/29/21 documented as of this encounter
--- OUTSIDE RECORDS SUMMARY | 2024-06-16 08:18 | XMS_ITS | Encounter Summary ---
Author Organization [employer] Address [address] [facility] [address] 7t [place] [address] Care Team Providers Care Guest Services Attendant Name Role Phone Martha Joyner MD Primary Care Provider [phone] Encounter Details Date Type Department Care Team (Late st Contact Info) Description 03/13/2023 Telephone [facility] MEDICINE [address] [place] [address] Martha Joyner MD [address] [place], [place] [phone] Social History Tobacco Use Types Packs/Day Years [...] indicated. Report faxed at this time to [phone] documented in this encounter Plan of Treatment Upcoming Encounters Date Type Department Care Team (Late st Contact Info) Description 07/17/2024 8:00 AM EDT Office Visit [facility] ADULT DENTAL [address] [place] [address] Harvinder Newberry documented as of this encounter Visit Diagnoses Not on filedocumented in this encounter Additional Health Concerns Assessment Noted Time PHQ-9 Depression Total Score: 1 02/15/20 22 4:00 PM EST documented as of this encounter Care Teams Guest Services Attendant Relationship Specialty Start Date End Date Martha Joyner MD [address] [place] [address] PCP - General Family Medicine 02/22/21 [facility] Nurse Practitioner Endocrinology 01/08/24 documented as of this encounter
--- OUTSIDE RECORDS SUMMARY | 2024-06-16 08:18 | XMS_ITS | Encounter Summary ---
Author Organization [employer] Address [address] [facility] 7t [place] [address] Care Team Providers Care Fulling Mill Operator Name Role Phone Martha Joyner MD Primary Care Provider [phone] Reason for Visit * Reason Comments Med Refill Encounter Details Date Type Department Care Team ([facility] Contact Info) Description 01/03/2023 Refill [facility] CHC MED & PEDS [address] [place], [place] [phone] Tereza Wagner MD [address] [place] [address] Social History Tobacco Use Types Packs/Day Years [...] [facility] ADULT DENTAL [address] [place] [address] Harvinder Newberry documented as of this encounter Visit Diagnoses Not on filedocumented in this encounter Additional Health Concerns Assessment Noted Time PHQ-9 Depression Total Score: 1 02/15/20 22 4:00 PM EST documented as of this encounter Care Teams Fulling Mill Operator Relationship Specialty Start Date End Date Martha Joyner MD [address] [place] [address] PCP - General Family Medicine 02/22/21 [facility] Nurse Practitioner Endocrinology 01/08/24 documented as of this encounter
--- OUTSIDE RECORDS SUMMARY | 2024-06-16 08:18 | XMS_ITS | Encounter Summary ---
Author Organization [facility] Address [address] [facility] [facility] [address] 7t [place] [address] Care Team Providers Care Blender Operator Name Role Phone Martha Joyner MD Primary Care Provider [phone] Encounter Details Date Type Department Care Team (Late Contact Info) Description 02/15/2022 Orders Only [facility] MED & PEDS [address] [place], [place] [phone] Martha Joyner MD [address] [place] [address] Type 2 diabetes mellitus with hyperglycemia, without long-term current use of insulin ([facility]) (Primary Dx) Social History Tobacco Use Types [...] 8:00 AM EDT Office Visit [facility] ADULT DENTAL [address] [place] [address] Harvinder Newberry documented as of this encounter Procedures Procedure Name Priority Date/Time Associated Diagnosis Comments ALBUMIN, RANDOM URINE W/CREATININE Routine 11/09/2022 9:05 AM EDT Type 2 diabetes mellitus with hyperglycemia, without long-term current use of insulin (CMS/HCC) COMPREHENSIVE METABOLIC PANEL, FASTING Routine 11/09/2022 9:00 AM EDT Type 2 diabetes mellitus with hyperglycemia, without long-term current use of insulin (CMS/[facility]) SED RATE BY MODIFIED WESTERGREN Routine 11/09/2022 9:00 AM EDT Type 2 diabetes mellitus with hyperglycemia, without long-term current use of insulin ([facility]) GLUCOSE, WHOLE BLOOD Routine 07/27/2022 2:52 PM EDT Type 2 diabetes mellitus with hyperglycemia, without long-term current use of insulin (CMS/[facility]) ALBUMIN, RANDOM URINE W/CREATININE Routine 05/18/2022 11:59 AM EDT Type 2 diabetes mellitus with hyperglycemia, without long-term current use of insulin (CMS/[facility]) LIPID PANEL, STANDARD Routine 05/18/2022 11:47 AM EDT Type 2 diabetes mellitus with hyperglycemia, without long-term current use of insulin (CMS/[facility]) GLUCOSE, WHOLE BLOOD Routine 05/18/2022 10:23 AM EDT Type 2 diabetes mellitus with hyperglycemia, without long-term current use of insulin (CMS/HCC) documented in this encounter Results * (ABNORMAL) Albumin, Random Urine W/Creatinine (11/09/2022 9:05 AM EDT) Creatinine, Urine 97.12 mg/dL [facility] Microalbumin Urine 900.0 mg/L [facility] Microalbum Creatinine Ratio Ur 926.6(H) <30 ug/mg cr [facility] Comment:Albumin/Creatinine R atio Reference Ranges: Normal: < 30 ug/mg creatinine Microalbuminuria: 30 - 300 ug/mg creatinineClinical Albuminuria: > 300 ug/mg creatinine 11/09/2022 9:05 AM EDT 11/09/2022 2:30 PM EDT Martha Joyner MD LAB URINE ORDERABLES Final Re sult Performing Organization Address [facility] de Phone Number [facility] [address] [place] [phone] * (ABNORMAL) Sed Rate by Modified Westergren (11/09/2022 9:00 AM EDT) Erythrocyte Sedimentation Rate 34(H) 0 - 15 MM/HR [facility] Comment:Patients with polycy themia and many hemoglobin abnormalitiesmay have depressed sed rates whereas patients with anemiamay have elevated sed rates. 11/09/2022 9:00 AM EDT 11/09/2022 2:45 PM EDT Martha Joyner MD LAB BLOOD ORDERABLES Final Re sult Performing Organization Address [facility] Phone Number [facility] [address] [place] [phone] * (ABNORMAL) Comprehensive Metabolic Panel, Fasting (11/09/2022 9:00 AM EDT) Sodium 139 135 - 145 mmol/L [facility] Potassium 4.5 3.3 - 5.1 mmol/L [facility] Chloride 106 96 - 108 mmol/L [facility] Carbon Dioxide 25 22 - 29 mmol/L [facility] Anion Gap 13 12 - 20 [facility] Urea Nitrogen (BUN) 26(H) 9 - 16 mg/dL [facility] Creatinine, Serum 1.35 0.5 - 1.4 mg/dL [facility] Estimated Glomerular Filt Rate 58 [facility] Comment:NOTE: For -Am erican individuals, multiply the result by 1.210.Chronic Kidney Disease: Estimated GFR < 60 mL/min/1.36h6Fzwugx Kidney Disease: Estimated GFR < 15 mL/min/1.73m2 Glucose Fasting 109(H) 60 - 99 mg/dL [facility] Comment:A fasting glucose fr om 100-125 mg/dl is considered impaired(pre-diabetes). Calcium 10.1 8.4 - 10.2 mg/dL [facility] Bilirubin, Total 0.4 0.0 - 1.0 mg/dL [facility] Aspartate Amino Transferase 30 5 - 37 U/L [facility] Alanine Aminotransferase 27 0 - 40 U/L [facility] Total Protein 7.5 6.5 - 8.0 g/dL [facility] Albumin Level 3.9 3.5 - 5.0 g/dL [facility] Alkaline Phosphatase 78 39 - 117 U/L [facility] 11/09/2022 9:00 AM EDT 11/09/2022 2:45 PM EDT Martha Joyner MD LAB BLOOD ORDERABLES Final Re sult Performing Organization Address [facility]/ZIP Co de Phone Number [facility] [address] [place] [phone] * (ABNORMAL) Glucose, Whole Blood (07/27/2022 2:52 PM EDT) Glucose, Whole Blood 183(H) 60 - 115 mg/dL [facility] Comment:METER #: [id number] 5Testing performed in the Endocrinology Department [address] , [address], [facility]. 07/27/2022 2:52 PM EDT 07/27/2022 2:56 PM EDT [facility] External Provider LAB BLO OD ORDERABLES Final Result Performing Organization Address [facility]/ZIP Co de Phone Number [facility] [address] [place] [phone] * Albumin, Random Urine W/Creatinine (05/18/2022 11:59 AM EDT) Creatinine, Urine 72.74 mg/dL [facility] Microalbumin Urine 747.0 mg/L [facility] Microalbum Creatinine Ratio Ur 1,026.9 ug/mg cr [facility] Comment:Albumin/Creatinine R atio Reference Ranges: Normal: < 30 ug/mg creatinine Microalbuminuria: 30 - 300 ug/mg creatinineClinical Albuminuria: > 300 ug/mg creatinine 05/18/2022 11:5 9 AM EDT 05/18/2022 1:23 PM EDT us [facility] External Provider LAB URI NE ORDERABLES Final Result [facility] [address] [place] [phone] * Lipid Panel, Standard (05/18/2022 11:47 AM EDT) Triglycerides 243 mg/dL [facility] Comment:Desirable Triglyceri de: less than 150 mg/dLBorderline High Triglyceride 150-199 mg/dLHigh Triglyceride: 200-499 mg/dLVery High Triglyceride: greater than or equal to 5OO mg/dL Cholesterol 152 mg/dL [facility] Comment:Desirable Cholestero l: less than 200 mg/dLBorderline High Cholesterol: 200-239 mg/dLHigh Cholesterol: greater than 239 mg/dL LDL Cholesterol Calculated 70 mg/dl [facility] Comment:Desirable LDL: less than 100 mg/dLNear Optimal/Above Optimal LDL: 110- 129 mg/dLBorderline High LDL: 130-159 mg/dLHigh LDL: 160-189 mg/dLVery High LDL: greater than or equal to 190 mg/dL HDL Cholesterol 34 mg/dL [facility] Comment:Desirable HDL: great er than 40 mg/dL Note: This HDL assay may give artificially low results in patients with liver disease. 05/18/2022 11:4 7 AM EDT 05/18/2022 1:23 PM EDT [facility] External Provider LAB BLO OD ORDERABLES Final Result Performing Organization Address [facility] de Phone Number [facility] [address] [place] [phone] * (ABNORMAL) Glucose, Whole Blood (05/18/2022 10:23 AM EDT) Glucose, Whole Blood 172(H) 60 - 115 mg/dL [facility] Comment:METER #: [id number] 5Testing performed in the Endocrinology Department [address] , [address], [facility]. 05/18/2022 10:2 3 AM EDT 05/18/2022 10:28 AM EDT [facility] External Provider LAB BLO OD ORDERABLES Final Result Performing Organization Address [facility] de Phone Number [facility] [address] [place] [phone] [phone] documented in this encounter Visit Diagnoses Diagnosis Type 2 diabetes mellitus with hyperglycemia, without long-term current use of insulin ([facility])- Primary documented in this encounter Additional Health Concerns Assessment Noted Time PHQ-9 Depression Total Score: 1 02/15/20 22 4:00 PM EST documented as of this encounter Care Teams Blender Operator Relationship Specialty Start Date End Date Martha Joyner MD [address] [place] [phone] PCP - General Family Medicine 02/22/21 [facility] Nurse Practitioner Endocrinology 01/08/24 documented as of this encounter
--- OUTSIDE RECORDS SUMMARY | 2024-06-16 08:18 | XMS_ITS | Encounter Summary ---
Author Organization [email or web address] Address [address] [facility] 7t [place] [address] Care Team Providers Care Electronics Technician Apprentice Name Role Phone Martha Joyner MD Primary Care Provider [phone] Reason for Visit * Reason Comments Med Refill Encounter Details Date Type Department Care Team ([facility] Contact Info) Description 06/07/2024 Refill [facility] CHC MED & PEDS 505 [place], [place] [phone] Martha Joyner MD 505 [place] [address] Type 2 diabetes mellitus with hyperglycemia, without long-term current use of insulin ([facility]) Social History Tobacco Use Types Packs/Day Years [...] your housing situation today? I have volodymyr sing 07/26/[address] you li [...] [facility] [address] [place] [address] Harvinder Newberry documented as of this encounter Visit Diagnoses Diagnosis Type 2 diabetes mellitus with hyperglycemia, without long-term current use of insulin ([facility]) documented in this encounter Additional Health Concerns Assessment Noted Time PHQ-9 Depression Total Score: 19 024 3:19 PM EDT documented as of this encounter Care Teams Electronics Technician Apprentice Relationship Specialty Start Date End Date Martha Joyner MD [address] [place] [address] PCP - General Family Medicine 02/22/21 [facility] Nurse Practitioner Endocrinology 01/08/24 documented as of this encounter
== END 2024-06-16 09:08 | disposition home or self-care (01) ==
LOC: HO.HBST 08:12
PROVIDERS: PCP Family Medicine; Visit Provider Counselor Mental Health
DX: F43.20 Adjustment disorder, unspecified (principal)
CPT/HCPCS: 90837

== ENCOUNTER → 2024-06-16 08:12 | Outpatient (BNVA) | payer OTHER, SELFPAY | PROVIDERS: PCP Family Medicine; Visit Provider Counselor Mental Health ==

== ENCOUNTER 2024-06-24 08:03 | Outpatient (REF) | payer OTHER, SELFPAY ==
--- NOTE | ~2024-06-24 | US_ITS ---
EXAMINATION: US ABDOMEN COMPLETE WITH LIVER ELASTOGRAPHY HISTORY: E66.01 - Morbid (severe) obesity due to excess calories TECHNIQUE: Real-time grayscale ultrasound imaging of the abdomen was performed and images were reviewed. COMPARISON: There are no prior studies for comparison. FINDINGS: Liver: The right lobe of the liver measures 18.2 cm in size. The left lobe of the liver measures 11.3 cm in size. The liver demonstrates increased echotexture, consistent with steatosis. There are scattered areas of focal fatty sparing. No focal mass or intrahepatic biliary ductal dilatation is identified. There is normal hepatopedal flow in the portal vein. Ultrasound elastography of the liver was performed with 10 separate measurements of the liver parenchyma with the patient in the supine position. Measurements were obtained approximately 2 cm below Michel's capsule and perpendicular to the capsule. The median shear wave velocity is 1.37 m/s. The interquartile range/median (IQR/median) is 0.18. Gallbladder and biliary tree: The gallbladder is unremarkable, without evidence of calculi, wall thickening, or pericholecystic fluid. There is no sonographic Prado sign. The common bile duct is normal in caliber measuring 4 mm. Kidneys: The right kidney measures 11.9 cm in length. The left kidney measures 11.4 cm in length. There is a 1.3 cm cyst at the upper pole of the left kidney. The kidneys are otherwise unremarkable, without evidence of solid masses, hydronephrosis, or calculi. Pancreas: The pancreatic head, neck, and body are unremarkable. The pancreatic tail is obscured by bowel gas. Spleen: The spleen is normal in size and contour, measuring 11.1 cm in length. Abdominal aorta and inferior vena cava: The visualized portions of the abdominal aorta and inferior vena cava are normal in caliber. There is no free fluid in the abdomen. US/US abdomen comp w elastography IMPRESSION: Hepatomegaly and hepatic steatosis. The median shear wave velocity in the liver is 1.37 m/s, corresponding to a median liver stiffness of 5.71 kPa. The IQR/median value is 0.18. This is indicative of a poor quality data set, and the estimated liver stiffness may be unreliable. Findings are indicative of a low elastography value which rules out advanced chronic liver disease in asymptomatic patients. REFERENCE: Society of Radiologists in Ultrasound Liver Stiffness Thresholds (2020): LIVER STIFFNESS THRESHOLDS: *Shear wave velocity less than 1.3 m/s (Liver Stiffness equal or less than 5 kPa): High probability of being normal. *Shear wave velocity less than 1.7 m/s (Liver Stiffness less than 9 kPa): In the absence of other known clinical signs, rules out compensated advanced chronic liver disease. *Shear wave velocity between 1.7-2.1 m/s (Liver Stiffness 9-13 kPa): Suggestive of compensated advanced chronic liver disease but need further test for confirmation. *Shear wave velocity between 2.1-2.4 m/s (Liver Stiffness 13-17 kPa): Rules in compensated advanced chronic liver disease. *Shear wave velocity greater than 2.4 m/s (Liver Stiffness over 17 kPa): Suggestive of clinically significant portal hypertension. QUALITY OF DATA SET: *IQR/Median value equal or less than 0.15 implies a quality data set. *IQR/Median value over 0.15 implies a poor quality data set. SIGNIFICANT CHANGE FROM PRIOR EXAM: Significant change if liver stiffness measurement is 10% or greater from prior exam. OTHER CONSIDERATIONS: The stage of liver fibrosis may be overestimated in the setting of acute hepatitis, liver inflammation, elevated liver function tests, hepatic vascular congestion, obstructive cholestasis, non-fasting state, and infiltrative diseases such as amyloidosis and lymphoma. In some patients with NAFLD, the liver stiffness thresholds for compensated advanced chronic liver disease may be lower. In causes other than viral hepatitis and NAFLD, liver stiffness thresholds are not well established. Electronically signed by: Ady Spear MD 06/26/2024 08:03 AM EDT
--- OUTSIDE RECORDS SUMMARY | 2024-06-24 08:10 | XMS_ITS | Encounter Summary ---
Author Organization [employer] Address [address] [facility] [address] 7t [place] [address] Care Team Providers Care Mri Supervisor Name Role Phone Martha Joyner MD Primary Care Provider [phone] Reason for Visit * Reason Onset Date Comments Nurse Triage 11/20/2023 Encounter Details Date Type Department Care Team ([facility] st Contact Info) Description 11/20/2023 Telephone [facility] MEDICINE 230 [place] [address] Martha Joyner MD [address] [place] [address] Nurse Triage Social History Tobacco Use Types [...] didn't answer. Left voice message to call [facility] triage line at [phone]. * Telephone Encounter - Rangel Razo [...] Description 07/17/2024 8:00 AM EDT Office Visit [facility] ADULT DENTAL [address] [place] [address] Harvinder Newberry documented as of this encounter Visit Diagnoses Not on filedocumented in this encounter Additional Health Concerns Assessment Noted Time PHQ-9 Depression Total Score: 19 024 3:19 PM EDT documented as of this encounter Care Teams Mri Supervisor Relationship Specialty Start Date End Date Martha Joyner MD [address] [place] [address] PCP - General Family Medicine 02/22/21 [facility] Nurse Practitioner Endocrinology 01/08/24 documented as of this encounter
--- OUTSIDE RECORDS SUMMARY | 2024-06-24 08:11 | XMS_ITS | Encounter Summary ---
Author Organization [employer] Address [address] [facility] [address] 7t [place] [address] Care Team Providers Care Biomedical Equipment Support Specialist Name Role Phone Martha Joyner MD Primary Care Provider [phone] Encounter Details Date Type Department Care Team ([facility] st Contact Info) Description 05/01/2023 Telephone [facility] CHC MED & PEDS 505 [place], [place] [phone] Martha Joyner MD 505 [place], [place] [phone] Social History Tobacco Use Types Packs/Day Years [...] 8:00 AM EDT Office Visit [facility] ADULT D[facility] [address] [place] [address] Harvinder Newberry documented as of this encounter Visit Diagnoses Not on filedocumented in this encounter Additional Health Concerns Assessment Noted Time PHQ-9 Depression Total Score: 1 02/15/20 22 4:00 PM EST documented as of this encounter Care Teams Biomedical Equipment Support Specialist Relationship Specialty Start Date End Date Martha Joyner MD [address] [place] [address] PCP - General Family Medicine 02/22/21 [facility] Nurse Practitioner Endocrinology 01/08/24 documented as of this encounter
--- OUTSIDE RECORDS SUMMARY | 2024-06-24 08:11 | XMS_ITS | Encounter Summary ---
Author Organization [employer] Address [address] [facility] [address] 7t [place] [address] Care Team Providers Care Lockmaker Name Role Phone Martha Joyner MD Primary Care Provider [phone] Reason for Visit * Reason Onset Date Comments Med Refill 03/16/2024 Encounter Details Date Type Department Care Team ([facility] st Contact Info) Description 03/16/2024 Telephone [facility] MEDICINE 230 [place] [address] Martha Joyner MD [address] [place] [address] Med Refill Social History Tobacco Use Types [...] 6.25 MG tablet To be sent to: [facility] documented in this encounter Plan of Treatment Upcoming Encounters Date Type Department Care Team (Late st Contact Info) Description 07/17/2024 8:00 AM EDT Office Visit [facility] ADULT D[facility] [address] [place] [address] Harvinder Newberry documented as of this encounter Visit Diagnoses Not on filedocumented in this encounter Additional Health Concerns Assessment Noted Time PHQ-9 Depression Total Score: 19 024 3:19 PM EDT documented as of this encounter Care Teams Lockmaker Relationship Specialty Start Date End Date Martha Joyner MD [address] [place] [phone] PCP - General Family Medicine 02/22/21 [facility] Nurse Practitioner Endocrinology 01/08/24 documented as of this encounter
--- OUTSIDE RECORDS SUMMARY | 2024-06-24 08:11 | XMS_ITS | Encounter Summary ---
Author Organization [employer] [facility] Address [address] [place] [address] 7t [place] [address] Care Team Providers Care Machine Featheredger And Reducer Name Role Phone Martha Joyner MD Primary Care Provider [phone] Reason for Visit * Reason Comments Med Refill Encounter Details Date Type Department Care Team (Late st Contact Info) Description 10/15/[address] [facility] MED & PEDS 505 [place] [address] Martha Joyner MD 505 [place] [address] Type 2 diabetes mellitus with hyperglycemia, without long-term current use of insulin ([facility]) Social History Tobacco Use Types Packs/Day [...] Description 07/17/2024 8:00 AM EDT Office [facility] ADULT [facility] 505 [place] [address] Harvinder Deutsch documented as of this encounter Visit Diagnoses Diagnosis Type 2 diabetes mellitus with hyperglycemia, without long-term current use of insulin ([facility]) documented in this encounter Additional Health Concerns Assessment Noted Time PHQ-9 Depression Total Score: 1 02/15/20 22 4:00 PM EST documented as of this encounter Care Teams Machine Featheredger And Reducer Relationship Specialty Start Date End Date Martha Joyner MD 230 [place] [address] PCP - General Family Medicine 02/22/21 [facility] Nurse Practitioner Endocrinology 01/08/24 documented as of this encounter
--- OUTSIDE RECORDS SUMMARY | 2024-06-24 08:11 | XMS_ITS | Encounter Summary ---
Author Organization [employer] Address [address] [facility] 7t [place] [address] Care Team Providers Care Facilities Maintenance Engineer Name Role Phone Martha Jyoner MD Primary Care Provider [phone] Reason for Visit * Reason Comments Med Refill Encounter Details Date Type Department Care Team ([facility] Contact Info) Description 01/03/[address] [facility] CHC MED & PEDS 505 [place], [place] [phone] Tereza Wagner MD 505 [place] [address] Social History Tobacco Use Types Packs/Day Years [...] [facility] [address] [place] [address] Harvinder Newberry documented as of this encounter Visit Diagnoses Not on filedocumented in this encounter Additional Health Concerns Assessment Noted Time PHQ-9 Depression Total Score: 1 02/15/20 22 4:00 PM EST documented as of this encounter Care Teams Facilities Maintenance Engineer Relationship Specialty Start Date End Date Martha Joyner MD 230 [place] [address] PCP - General Family Medicine 02/22/21 [facility] Nurse Practitioner Endocrinology 01/08/24 documented as of this encounter
--- OUTSIDE RECORDS SUMMARY | 2024-06-24 08:11 | XMS_ITS | Encounter Summary ---
Author Organization [employer] [facility] Address [address] [facility] [facility] [address] 7t [place] [address] Care Team Providers Care Certified Home Health Aide Name Role Phone Martha Joyner MD Primary Care Provider [phone] Encounter Details Date Type Department Care Team (Late Contact Info) Description 02/15/2022 Orders Only [facility] MED & PEDS 505 [place], [place] [phone] Martha Joyner MD 505 [place] [address] Type 2 diabetes mellitus with hyperglycemia, without long-term current use of insulin ([facility]) (Primary Dx) Social History Tobacco Use [...] 8:00 AM EDT Office Visit [facility] ADULT DENTAL [address] [place] [address] Harvinder Newberry documented as of this encounter Procedures Procedure Name Priority Date/Time Associated Diagnosis Comments ALBUMIN, RANDOM URINE W/CREATININE Routine 11/09/2022 9:05 AM EDT Type 2 diabetes mellitus with hyperglycemia, without long-term current use of insulin (CMS/HCC) COMPREHENSIVE METABOLIC PANEL, FASTING Routine 11/09/2022 9:00 AM EDT Type 2 diabetes mellitus with hyperglycemia, without long-term current use of insulin ([facility]) SED RATE BY MODIFIED WESTERGREN Routine 11/09/2022 9:00 AM EDT Type 2 diabetes mellitus with hyperglycemia, without long-term current use of insulin ([facility]) GLUCOSE, WHOLE BLOOD Routine 07/27/2022 2:52 PM EDT Type 2 diabetes mellitus with hyperglycemia, without long-term current use of insulin (CMS/[facility]) ALBUMIN, RANDOM URINE W/CREATININE Routine 05/18/2022 11:59 AM EDT Type 2 diabetes mellitus with hyperglycemia, without long-term current use of insulin (CMS/[facility]) LIPID PANEL, STANDARD Routine 05/18/2022 11:47 AM EDT Type 2 diabetes mellitus with hyperglycemia, without long-term current use of insulin (CMS/[facility]) GLUCOSE, WHOLE BLOOD Routine 05/18/2022 10:23 AM EDT Type 2 diabetes mellitus with hyperglycemia, without long-term current use of insulin (CMS/HCC) documented in this encounter Results * (ABNORMAL) Albumin, Random Urine W/Creatinine (11/09/2022 9:05 AM EDT) Creatinine, Urine 97.12 mg/dL [facility] Microalbumin Urine 900.0 mg/L [facility] Microalbum Creatinine Ratio Ur 926.6(H) <30 ug/mg cr [facility] Comment:Albumin/Creatinine R atio Reference Ranges: Normal: < 30 ug/mg creatinine Microalbuminuria: 30 - 300 ug/mg creatinineClinical Albuminuria: > 300 ug/mg creatinine 11/09/2022 9:05 AM EDT 11/09/2022 2:30 PM EDT Martha Joyner MD LAB URINE ORDERABLES Final Re sult Performing Organization Address [facility] de Phone Number [facility] [address] [place] [phone] * (ABNORMAL) Sed Rate by Modified Westergren (11/09/2022 9:00 AM EDT) Erythrocyte Sedimentation Rate 34(H) 0 - 15 MM/HR [facility] Comment:Patients with polycy themia and many hemoglobin abnormalitiesmay have depressed sed rates whereas patients with anemiamay have elevated sed rates. 11/09/2022 9:00 AM EDT 11/09/2022 2:45 PM EDT Martha Joyner MD LAB BLOOD ORDERABLES Final Re sult Performing Organization Address [facility] Phone Number [facility] [address] [place] [phone] * (ABNORMAL) Comprehensive Metabolic Panel, Fasting (11/09/2022 9:00 AM EDT) Sodium 139 135 - 145 mmol/L [facility] Potassium 4.5 3.3 - 5.1 mmol/L [facility] Chloride 106 96 - 108 mmol/L [facility] Carbon Dioxide 25 22 - 29 mmol/L [facility] Anion Gap 13 12 - 20 [facility] Urea Nitrogen (BUN) 26(H) 9 - 16 mg/dL [facility] Creatinine, Serum 1.35 0.5 - 1.4 mg/dL [facility] Estimated Glomerular Filt Rate 58 [facility] Comment:NOTE: For -Am erican individuals, multiply the result by 1.210.Chronic Kidney Disease: Estimated GFR < 60 mL/min/1.13j8Ucxnmg Kidney Disease: Estimated GFR < 15 mL/min/1.73m2 Glucose Fasting 109(H) 60 - 99 mg/dL [facility] Comment:A fasting glucose fr om 100-125 mg/dl is considered impaired(pre-diabetes). Calcium 10.1 8.4 - 10.2 mg/dL [facility] Bilirubin, Total 0.4 0.0 - 1.0 mg/dL [facility] Aspartate Amino Transferase 30 5 - 37 U/L [facility] Alanine Aminotransferase 27 0 - 40 U/L [facility] Total Protein 7.5 6.5 - 8.0 g/dL [facility] Albumin Level 3.9 3.5 - 5.0 g/dL [facility] Alkaline Phosphatase 78 39 - 117 U/L [facility] 11/09/2022 9:00 AM EDT 11/09/2022 2:45 PM EDT Martha Joyner MD LAB BLOOD ORDERABLES Final Re sult Performing Organization Address [facility]/ZIP Co de Phone Number [facility] [address] [place] [phone] * (ABNORMAL) Glucose, Whole Blood (07/27/2022 2:52 PM EDT) Glucose, Whole Blood 183(H) 60 - 115 mg/dL [facility] Comment:METER #: [id number] 5Testing performed in the Endocrinology Department [address] , [address], [facility]. 07/27/2022 2:52 PM EDT 07/27/2022 2:56 PM EDT [facility] External Provider LAB BLO OD ORDERABLES Final Result Performing Organization Address [facility]/ZIP Co de Phone Number [facility] [address] [place] [address] [phone] * Albumin, Random Urine W/Creatinine (05/18/2022 11:59 AM EDT) Creatinine, Urine 72.74 mg/dL [facility] Microalbumin Urine 747.0 mg/L [facility] Microalbum Creatinine Ratio Ur 1,026.9 ug/mg cr [facility] Comment:Albumin/Creatinine R atio Reference Ranges: Normal: < 30 ug/mg creatinine Microalbuminuria: 30 - 300 ug/mg creatinineClinical Albuminuria: > 300 ug/mg creatinine 05/18/2022 11:5 9 AM EDT 05/18/2022 1:23 PM EDT us [facility] External Provider LAB URI NE ORDERABLES Final Result [facility] [address] [place] [phone] * Lipid Panel, Standard (05/18/2022 11:47 AM EDT) Triglycerides 243 mg/dL [facility] Comment:Desirable Triglyceri de: less than 150 mg/dLBorderline High Triglyceride 150-199 mg/dLHigh Triglyceride: 200-499 mg/dLVery High Triglyceride: greater than or equal to 5OO mg/dL Cholesterol 152 mg/dL [facility] Comment:Desirable Cholestero l: less than 200 mg/dLBorderline High Cholesterol: 200-239 mg/dLHigh Cholesterol: greater than 239 mg/dL LDL Cholesterol Calculated 70 mg/dl [facility] Comment:Desirable LDL: less than 100 mg/dLNear Optimal/Above Optimal LDL: 110- 129 mg/dLBorderline High LDL: 130-159 mg/dLHigh LDL: 160-189 mg/dLVery High LDL: greater than or equal to 190 mg/dL HDL Cholesterol 34 mg/dL [facility] Comment:Desirable HDL: great er than 40 mg/dL Note: This HDL assay may give artificially low results in patients with liver disease. 05/18/2022 11:4 7 AM EDT 05/18/2022 1:23 PM EDT [facility] External Provider LAB BLO OD ORDERABLES Final Result Performing Organization Address [facility] de Phone Number [facility] [address] [place] [address] [phone] * (ABNORMAL) Glucose, Whole Blood (05/18/2022 10:23 AM EDT) Glucose, Whole Blood 172(H) 60 - 115 mg/dL [facility] Comment:METER #: [id number] 5Testing performed in the Endocrinology Department [address] , [address], [facility]. 05/18/2022 10:2 3 AM EDT 05/18/2022 10:28 AM EDT [facility] External Provider LAB BLO OD ORDERABLES Final Result Performing Organization Address [facility] de Phone Number [facility] [address] [place] [address] [phone] documented in this encounter Visit Diagnoses Diagnosis Type 2 diabetes mellitus with hyperglycemia, without long-term current use of insulin ([facility])- Primary documented in this encounter Additional Health Concerns Assessment Noted Time PHQ-9 Depression Total Score: 1 02/15/20 22 4:00 PM EST documented as of this encounter Care Teams Certified Home Health Aide Relationship Specialty Start Date End Date Martha Joyner MD [address] [place] [phone] PCP - General Family Medicine 02/22/21 [facility] Nurse Practitioner Endocrinology 01/08/24 documented as of this encounter
--- OUTSIDE RECORDS SUMMARY | 2024-06-24 08:11 | XMS_ITS | Encounter Summary ---
Author Organization [employer] Address [address] [facility] 7t [place] [address] Care Team Providers Care Crisis Clinician Name Role Phone Martha Joyner MD Primary Care Provider [phone] Reason for Visit * Reason Comments Med Refill Encounter Details Date Type Department Care Team ([facility] Contact Info) Description 06/07/2024 Refill [facility] CHC MED & PEDS [address] [place], [place] [phone] Martha Joyner MD 505 [place] [address] Type 2 diabetes mellitus with hyperglycemia, without long-term current use of insulin ([facility]) Social History Tobacco Use Types Packs/Day Years [...] 8:00 AM EDT Office Visit [facility] ADULT [facility] [address] [place] [address] Harvinder Newberry documented as of this encounter Visit Diagnoses Diagnosis Type 2 diabetes mellitus with hyperglycemia, without long-term current use of insulin ([facility]) documented in this encounter Additional Health Concerns Assessment Noted Time PHQ-9 Depression Total Score: 19 024 3:19 PM EDT documented as of this encounter Care Teams Crisis Clinician Relationship Specialty Start Date End Date Martha Joyner MD [address] [place] [address] PCP - General Family Medicine 02/22/21 [facility] Nurse Practitioner Endocrinology 01/08/24 documented as of this encounter
--- OUTSIDE RECORDS SUMMARY | 2024-06-24 08:11 | XMS_ITS | Encounter Summary ---
Author Organization [facility] Address [address] [address] Phone Care Team Providers Care Revenue Stamp Cutter Name Role Phone Martha Joyner MD Primary Care Provider [phone] Encounter Details Date Type Department Care Team (Late st Contact Info) Description 06/29/2021 Documentation Only [facility] [address] [place] [address] Martha Joyner MD [address] [place] [phone] Social History Tobacco Use Types Packs/Day Years Used Date Smoking Tobacco: Never Assessed Sex and Gender Information Value Date Recorded Sex Assigned at Not on file Legal Sex Male 11:06 AM EDT Gender Identity Not on file Sexual Orientation Not on file documented as of this encounter Plan of Treatment Upcoming Encounters Date Type Department Care Team (Late st Contact Info) Description 12/23/2024 2:45 PM EDT Office Visit [facility] [address] [place] [address] Jose Guadalupe Coleman MD [address] [place] [address] [place] [phone] documented as of this encounter Visit Diagnoses Not on filedocumented in this encounter Care Teams Revenue Stamp Cutter Relationship Specialty Start Date End Date Martha Joyner MD PCP - General Family Medicine 06/29/21 documented as of this encounter
--- OUTSIDE RECORDS SUMMARY | 2024-06-24 08:11 | XMS_ITS | Encounter Summary ---
Author Organization [facility] Address [address] [address] Phone Care Team Providers Care Eyeletter Name Role Phone Martha Joyner MD Primary Care Provider [phone] Encounter Details Date Type Department Care Team (Late st Contact Info) Description 06/29/2021 Documentation Only [facility] [address] [place] [address] Martha Joyner MD [address] [place] [address] [phone] Social History Tobacco Use Types Packs/Day Years [...] Visit [facility] [address] [place] [address] Jose Guadalupe Coleman MD [address] [place] [address] [place] [phone] documented as of this encounter Visit Diagnoses Not on filedocumented in this encounter Care Teams Eyeletter Relationship Specialty Start Date End Date Martha Joyner MD PCP - General Family Medicine 06/29/21 documented as of this encounter
--- OUTSIDE RECORDS SUMMARY | 2024-06-24 08:11 | XMS_ITS | Encounter Summary ---
Author Organization [employer] Address [address] [facility] [address] 7t [place] [address] Care Team Providers Care Various Exceptionalities Teacher Name Role Phone Martha Joyner MD Primary Care Provider [phone] Reason for Visit * Reason Comments Med Refill Encounter Details Date Type Department Care Team ([facility] Contact Info) Description 07/21/2023 Refill [facility] CHC MED & PEDS 505 [place], [place] [phone] Martha Joyner MD 505 [place] [address] Type 2 diabetes mellitus with hyperglycemia, without long-term current use of insulin ([facility]) Social History [...] 07/17/2024 8:00 AM EDT Office Visit [facility] [address] [place] [address] Harvinder Newberry documented as of this encounter Visit Diagnoses Diagnosis Type 2 diabetes mellitus with hyperglycemia, without long-term current use of insulin ([facility]) documented in this encounter Additional Health Concerns Assessment Noted Time PHQ-9 Depression Total Score: 17 024 5:09 PM EDT documented as of this encounter Care Teams Various Exceptionalities Teacher Relationship Specialty Start Date End Date Martha Joyner MD [address] [place] [phone] PCP - General Family Medicine 02/22/21 [facility] Nurse Practitioner Endocrinology 01/08/24 documented as of this encounter
--- OUTSIDE RECORDS SUMMARY | 2024-06-24 08:11 | XMS_ITS | Encounter Summary ---
Author Organization [employer] Address [address] [place] [address] Care Team Providers Care Scientific Systems Analyst Name Role Phone Martha Joyner MD Primary Care Provider [phone] Encounter Details Date Type Department Care Team (Late st Contact Info) Description 03/13/2023 Telephone [facility] [address] [place] [address] Martha Joyner MD [address] [place], [place] [id number] Social History Tobacco Use Types Packs/Day Years [...] indicated. Report faxed at this time to [phone] documented in this encounter Plan of Treatment Upcoming Encounters Date Type Department Care Team (Late st Contact Info) Description 07/17/2024 8:00 AM EDT Office Visit [facility] [address] [place] [address] Harvinder Newberry documented as of this encounter Visit Diagnoses Not on filedocumented in this encounter Additional Health Concerns Assessment Noted Time PHQ-9 Depression Total Score: 1 02/15/20 22 4:00 PM EST documented as of this encounter Care Teams Scientific Systems Analyst Relationship Specialty Start Date End Date Martha Joyner MD [address] [place] [id number] PCP - General Family Medicine 02/22/21 [facility] Nurse Practitioner Endocrinology 01/08/24 documented as of this encounter
--- OUTSIDE RECORDS SUMMARY | 2024-06-24 08:11 | XMS_ITS | Clinical Summary ---
Author Organization [facility], Address [address] [place] [address] [place] [address] Phone Care Team Providers Care Religious Healer Name Role Phone Martha Joyner MD Primary Care Provider [phone] Allergies Active Allergy Reactions Criticality Noted Date Comments Clonidine 07/07/2021 Medications glucose blood test strip 1 each by Other route if needed Use as instructed Active ketotifen (ZADITOR) 0.025 % ophthalmic solution 1 drop 2 (two) times a day Active valsartan (DIOVAN) 320 MG tablet Take 320 mg by mouth 1 (one) time each day Active sertraline (Zoloft) 25 MG tablet Take 25 mg by mouth 1 (one) time each day Active Acetaminophen Extra Strength 500 MG tablet TAKE TWO TABLETS BY MOUTH EVERY 8 HOURS NEEDED FOR PAIN. NO MORE THAN SIX TABLETS IN 24 HOURS 05/08/19 23 Active amoxicillin-cla vulanate (AUGMENTIN) 875-125 MG per tablet TAKE ONE TABLET BY MOUTH TWICE DAILY UNTIL FINISHED 05/08/19 23 Active TechLite Pen [place] 31G X 5 MM [facility] USE DAILY WITH INSULIN 04/13/19 23 Active Mounjaro 2.5 MG/0.5ML solution pen-injector Inject 12.5 mg under the skin per week 05/22/19 23 Active carvedilol (COREG) 12.5 MG tablet TAKE ONE TABLET IN THE MORNING AND EVENING WITH FOOD 11/08/19 23 Active Continuous Blood Gluc Sensor (FreeStyle Jeannette 3 Sensor) [facility] USE DIRECTED TO TEST BLOOD SUGAR CHANGE EVERY 14 DAYS 11/27/19 23 Active Proctozone-HC 2.5 % cream INSERT RECTALLY TWICE DAILY 11/01/19 23 Active meclizine (ANTIVERT) 25 MG tablet TAKE ONE TABLET THREE TIMES DAILY IN THE MORNING, AT NOON, AND AT BEDTIME NEEDED FOR DIZZINESS 11/09/19 23 Active Dapagliflozin Propanediol (Farxiga) 10 MG tablet Take 10 mg by mouth 1 (one) time each day in the morning Active metFORMIN (GLUCOPHAGE) 850 MG tablet Take 850 mg by mouth in the morning and 850 mg in the evening. Take with meals. 025 Discontinued Dulaglutide (Trulicity) 0.75 MG/0.5ML solution pen-injector Inject under the skin 025 Discontinued metFORMIN XR (GLUCOPHAGE-XR) 500 MG 24 hr tablet TAKE ONE TABLET BY MOUTH TWICE DAILY WITH MEALS DO NOT BREAK, CRUSH, DISSOLVE OR CHEW 05/10/19 23 025 Discontinued Active Problems Problem Noted Date Diagnosed Date Diabetes mellitus without me ntion of complication, type II or unspecified type, uncontrolled 07/07/2021 Hypertension 07/07/2021 Resolved Problems Problem Noted Date Diagnosed Date Resolved Date Hypertension in chronic kidn ey disease stage 2 due to type 2 diabetes mellitus 07/07/20212021 Encounters Date Type Department Care Team Description 06/17/2024 3:45 PM EDT Office Visit [facility] [address] [place] [address] Jose Guadalupe Coleman MD Stage 3a chronic kidney disease (HCC) (Primary Dx); Hypertension; Diabetes mellitus without mention of complication, type II or unspecified type, uncontrolled (HCC); Persistent proteinuria 04/30/2024 Orders Only [facility] [address] [facility] [place] [address] Jose Guadalupe Coleman MD 04/28/2024 Office Communication [facility] [address] [place] [address] Tatianna Lao from Last 3 Months Social History Tobacco Use Types Packs/Day Years Used Date Smoking Tobacco: Never Smokeless Tobacco: Never Sex and Gender Information Value Date Recorded Sex Assigned at Not on file Legal Sex Male 11:06 AM EDT Gender Identity Not on file Sexual Orientation Not on file Last Filed Vital Signs Vital Sign Reading Time Taken Comments Blood Pressure 110/82 06/17/2024 4:08 PM EDT Pulse - - Temperature - - Respiratory Rate - - Oxygen Saturation - - Inhaled Oxygen Concentration - - Weight 139 kg (307 lb) 06/17/2024 4:08 PM EDT Height - - Body Mass Index - - Plan of Treatment Upcoming Encounters Date Type Department Care Team (Late st Contact Info) Description 12/23/2024 2:45 PM EDT Office Visit [facility], [address] [place] [address] Jose Guadalupe Coleman MD [address] [place] [address] Health Maintenance Due Date Last [...] Urine 0-5 0 - 5 /hpf [facility] RBC, Urine 0-2 0 - 2 /hpf [facility] Squamous Epithelial, Urine None seen 0 - 10 /hpf [facility] Casts None seen None seen /lpf [facility] Bacteria, Urine None seen None seen/Few [facility] 04/30/2024 7:23 AM EST 04/30/2024 Jose Guadalupe Coleman MD LAB MICROBIOLOGY - GENERAL ORDERABLES Final Result Performing Organization Address City/[facility]/ZIP Co de Phone Number [facility] [address] [place] [address] * (ABNORMAL) Protein, Total, Random Urine w/Creatinine (Protein/Creat Ratio) (04/30/2024 7:23 AM EST) Pathologist [facility] Creatinine, Ur 169.1 Not Estab. mg/dL [facility] Protein, Ur 454.4 Not Estab. mg/dL [facility] Comment: Results confirmed on dilution. Urine Protein/Creati nine Ratio 2,687(H) 0 - 200 mg/g creat [facility] 04/30/2024 7:23 AM EST 04/30/2024 Jose Guadalupe Coleman MD LAB URINE ORDERABLES Final Result Performing Organization Address [facility]/ZIP Co de Phone Number [facility] [address] [place] [address] * (ABNORMAL) Urinalysis with microscopic (04/30/2024 7:23 AM EST) Specific [place], Urine 1.029 1.005 - 1.030 [facility] pH Urine 6.0 5.0 - 7.5 [facility] [phone] Color, Urine Yellow Yellow [facility] Appearance Urine Clear Clear [facility] WBC Esterase Urine Negative Negative [facility] [phone] Protein, Ur 3+(A) Negative/Tra ce [facility] Glucose, Ur 3+(A) Negative [facility] Ketones, Urine Negative Negative [facility] [phone] Blood Urine Negative Negative [facility] Bilirubin Urine Negative Negative [facility] Urobilinogen Urine 0.2 0.2 - 1.0 mg/dL [facility] [phone] Nitrite, Urine Negative Negative [facility] Microscopic Examination See below: [facility] Comment:Microscopic was gloria cated and was performed. 04/30/2024 7:23 AM EST 04/30/2024 us Jose Guadalupe Coleman MD LAB URINE ORDERABLES Final Result [facility] [address] [place] [address] * (ABNORMAL) Renal Function Panel (04/30/2024 7:23 AM EST) Glucose 125(H) 70 - 99 mg/dL [facility] BUN 21 6 - 24 mg/dL [facility] Creatinine 1.49(H) 0.76 - 1.27 mg/dL [facility] eGFR CKD-EPI CR 2020 59(L) >59 mL/min/1.7 3 [facility] BUN/Creatinine Ratio 14 9 - 20 [facility] Sodium 139 134 - 144 mmol/L [facility] Potassium 4.4 3.5 - 5.2 mmol/L [facility] Chloride 104 96 - 106 mmol/L [facility] Bicarbonate (CO2) 20 20 - 29 mmol/L [facility] Calcium 9.2 8.7 - 10.2 mg/dL [facility] Albumin 3.8(L) 4.1 - 5.1 g/dL [facility] Phosphorus 3.6 2.8 - 4.1 mg/dL [facility] 04/30/2024 7:23 AM EST 04/30/2024 Jose Guadalupe Coleman MD LAB BLOOD ORDERABLES Final Result [facility] [address] [place] [address] from Last 3 Months Insurance [facility] Plan ([id number]) Care Teams Religious Healer Relationship Specialty Start Date End Date Martha Joyner MD PCP - General Family Medicine 06/29/21
--- OUTSIDE RECORDS SUMMARY | 2024-06-24 08:11 | XMS_ITS | Clinical Summary ---
Author Organization [employer] Address [address] [facility] [address] [place] [address] Care Team Providers Care Plastic Surgeon Name Role Phone Martha Joyner MD Primary Care Provider [phone] Allergies No known active allergies Medications * [...] tablet 11 025 2025 Active Continuous Glucose Managed Care Nurse (FreeStyle Jeannette 3 [place]) deviceIndicatio ns:Type 2 diabetes mellitus with hyperglycemia, without long-term current use of insulin (CMS/HCC) 1 each Once per day. Use as [...] Blood Gluc Sensor (FreeStyle Jeannette 3 Sensor) [facility] USE DIRECTED TO TEST BLOOD SUGAR CHANGE [...] hyperglycemia, without long-term current use of insulin (CMS/[facility]) TAKE 2 TABLETS BY MOUTH TWICE DAILY WITH FOOD DO NOT BREAK, CRUSH, DISSOLVE OR CHEW 360 tablet 1 024 2024 Discontinued(D iscontinued by another clinician) Active Problems Problem Noted Date Diagnosed Date Itch of eye 01/08/2024 PTSD (post-traumatic stress disorder) 09/12/2023 Fractured dental alevism with loss of materi al 07/31/2023 JERRY [...] Glu = 109 Patient is managed by [facility] endo. His DM2 is trending in the [...] levels. Continue taking mounjaro as perscribed by supervisor plate pasting. Will montior and lower metformin as needed. [...] using lantus, fastings not at target, incr trulicity. Patient inquired of switching to ozempic, discussed concern of low availability in pharmacies will cont with trulicity for now and readdress in the future. He also brought up use of SGLT-2, given information and discuss introduction in the future, f/up in 4-6 weeks. Assessment & Plan (02/14/2022 5:11 PM EST): Patient with elevated a1c of 10.7% and glucoe of [facility]. No measuring his glucose at home, [...] Type Department Care Team Description 06/07/2024 Refill [facility] [address] [place] [address] Martha Joyner MD Type 2 diabetes mellitus with hyperglycemia, without long-term current use of insulin ([facility]) 05/26/2024 Travel 05/25/2024 Orders Only GENERIC EXTERNAL DATA DEPARTMENT Provider, Generic External Data 05/18/2024 8:30 AM EDT Office Visit [facility] [address] [place] [address] Adriane Schultz MD Type 2 diabetes mellitus with hyperglycemia, without long-term current use of insulin (CMS/[facility]) (Primary Dx); Hypoglycemic episode in patient with diabetes mellitus (CMS/HCC); Primary hypertension; Plantar fasciitis 05/18/2024 Telephone [facility] [address] [place] [address] Martha Joyner MD Change PCP 05/18/2024 Travel 05/06/2024 Telephone [facility] [address] [place] [address] Martha Joyner MD 05/04/[address] [address] Martha Joyner MD Nurse Triage 04/22/2024 8:00 AM EST Office Visit [facility] [address] [place] [address] Roxi Reagan DMD 04/17/2024 Orders Only GENERIC EXTERNAL DATA DEPARTMENT Provider, Generic External Data 04/16/2024 2:30 PM EST Office Visit [facility] [address] [place] [address] Anson De Leon MD Stage 3b chronic kidney disease (CMS/HCC) (Primary Dx); Type 2 diabetes mellitus with hyperglycemia, without long-term current use of insulin (CMS/HCC); Congestion of nasal sinus; Albuminuria 04/16/2024 Travel 04/16/[address] [address] Adeola Velásquez RN 04/15/2024 Orders Only GENERIC EXTERNAL DATA DEPARTMENT Provider, Generic External Data 03/27/2024 8:00 AM EST Office Visit [facility] [address] [place] [address] Roxi Reagan DMD from Last 3 Months [...] 07/17/2024 8:00 AM EDT Office Visit [facility] [address] [place] [address] Tank Newberryouard Health Maintenance Due Date Last Done Comments [...] hyperglycemia, without long-term current use of insulin ([facility]) 2 O AMALGAM - 1 SURF, [...] hyperglycemia, without long-term current use of insulin ([facility]) LIPID PANEL, STANDARD Routine 04/15/2024 8:29 [...] EDT Narrative 05/25/2024 1:54 PM EDT ? [facility] ?[address] ?[place] [address] ?XRay Report ? Signed ? Patient: Fischer Anam,Edd ?MR#: [id number] ?? [id number] ? : 1980 ?Acct:[id number] ? Age/Sex: 43 / M ?ADM Date: 03/24/25 ? Loc: HO.XRAY ? Attending : Obey Mendoza MD ? Ordering Physician: Obey Mendoza MD ?? Date of Service: 05/25/24 ?? Procedure(s): XR chest 2V ?? Accession Number(s): [id number] ? cc: Obey Mendoza MD; Martha Joyner [...] DD/ 1352 ? TD/TT: 05/25/24 1352 ? Hand Stoner: ? Procedure Note Ana M, Image - 05/25/2024 [place] [address] XRay Report Signed Patient: Donal Shaw#: M [id number] : 1980Acct:[id number] Age/Sex: 43 / MADM Date: 05/25/24 Loc: HO.XRAY Attending Dr: Obey Mendoza MD Ordering Physician: Obey Mnedoza MD Date of Service: 05/25/24 Procedure(s): XR chest 2V Accession Number(s): [id number] cc: Obey Mendoza MD; Martha Joyner MD [...] 05/25/24 1353 DD/ 1352 TD/TT: 05/25/24 1352 Hand Stoner: [facility] External Provider IMG XR PROCEDURES Final Result * Vitamin D, 25-Hydroxy, Total, Immunoassay (05/25/2024 6:30 AM EDT) Vitamin D 25-OH Total 67.5 >30 ng/mL [facility] Comment: Health Based Reference Values*< 20 ??ng/mL ??Nsmlsrvga06-42 ng/mL ??Insufficient> 30 ??ng/mL ??Sufficient*Chris MERINO. N [...] Provider LAB BLOOD ORDERAB LES Final Result [facility] [address] [place] [address] [phone] * (ABNORMAL) Vitamin B12 (Cobalamin) and Folate Panel, Serum (05/25/2024 6:30 AM EDT) Vitamin B12 1,547(H) 200 - 900 pg/mL [facility] Comment:NORMAL 200-900 PG/ML INDETERMINATE 160-199 PG/ML DEFICIENT < 160 PG/ML Folate 10.6 > or = 4.0 ng/mL [facility] Comment:Reference Values:> o r = 4.0 ng/mL< 4.0 ng/mL suggests folate deficiency Methotrexate, aminopterin and folinic acid(leucovorin) are chemotherapeutic agents whose molecularstructures are similar to folate; therefore, the Architectfolate assay cannot be used for patients using these drugs. 05/25/2024 6:30 AM EDT 05/25/2024 6:30 AM EDT Generic External Data Provider LAB BLOOD ORDERAB LES Final Result Performing Organization Address [facility] Co de Phone Number [facility] [address] [place] [phone] * TSH with Reflex to Free T4 (05/25/2024 6:30 AM EDT) Pathologist [facility] TSH reflex Free T4 2.92 0.32 - 4.0 uIU/mL [facility] 05/25/2024 6:30 AM EDT 05/25/2024 6:30 AM EDT Generic External Data Provider LAB BLOOD ORDERAB LES Final Result Performing Organization Address [facility] de Phone Number [facility] [address] [place] [phone] * CBC auto differential (05/25/2024 6:30 AM EDT) White Blood Count 8.6 4.8 - 10.8 X10*3/uL [facility] Red Blood Count 5.79 4.60 - 5.80 X10*6/uL [facility] Hemoglobin 16.6 14.0 - 18.0 g/dl [facility] Hematocrit 49.1 42.0 - 52.0 % [facility] Mean Corpuscular Volume 84.8 80.0 - 98.0 fL [facility] Mean Corpuscular Hemoglobin 28.7 27.0 - 33.0 pg [facility] Mean Corpuscular HGB Conc 33.8 31.0 - 36.0 g/dl [facility] Red Cell Distribution Width 14.6 11.0 - 16.0 % [facility] Platelet Count 253 160 - 400 X10*3/uL [facility] Mean Platelet Volume 9.4 9.4 - 12.4 fL [facility] Neutrophils Percent Auto 58.2 45 - 73 % [facility] Imm Gran Pct Auto 0.3 0.0 - 0.4 % [facility] Lymphocytes Percent Auto 28.7 20 - 40 % [facility] Monocytes Percent Auto 8.2 2 - 11 % [facility] Eosinophils Percent Auto 3.8 0 - 4 % [facility] Basophils Percent Auto 0.8 0 - 2 % [facility] NRBC Pct Auto 0.0 0.0 - 0.2 /100WBC [facility] Neutrophils Absolute Auto 5.0 2.0 - 8.3 x10*3/uL [facility] Imm Gran Abs Auto 0.03 0.00 - 0.03 X10*3/uL [facility] Lymphocytes Absolute Auto 2.5 1.2 - 4.9 X10*3/uL [facility] Monocytes Absolute Auto 0.7 0.1 - 1.2 X10*3/uL [facility] Eosinophils Absolute Auto 0.3 0.0 - 0.4 X10*3/uL [facility] Basophils Absolute Auto 0.1 0.0 - 0.2 X10*3/uL [facility] NRBC Abs Auto 0.000 0.0 - 0.012 X10*3/uL [facility] 05/25/2024 6:30 AM EDT 05/25/2024 6:30 AM EDT us Generic External Data Provider LAB BLOOD ORDERAB LES Final Result [facility] [address] [place] [address] [phone] * Iron And Total Iron Binding Capacity (05/25/2024 6:30 AM EDT) Iron 46 45 - 160 mcg/dL [facility] Total Iron Binding Capacity 279 228 - 428 mcg/dL [facility] Percent Iron Saturation 16 15 - 50 % [facility] Unsaturated Iron Binding 233 ug/dL [facility] 05/25/2024 6:30 AM EDT 05/25/2024 6:30 AM EDT Generic External Data Provider LAB BLOOD ORDERAB LES Final Result Performing Organization Address [facility] Co de Phone Number [facility] [address] [place] [phone] * (ABNORMAL) Insulin (05/25/2024 6:30 AM EDT) Pathologist [facility] Insulin 43(H) 2 - 29 uU/mL [facility] Comment:This test was perfor med using the LocalGuiding chemiluminescentmethod. Values obtained from different assay methods [...] ORDERAB LES Final Result Performing Organization Address [facility] Co de Phone Number [facility] [address] [place] [phone] * Zinc (05/25/2024 6:30 AM EDT) Pathologist [facility] Zinc 76 60 - 130 mcg/dL [facility] Comment:This test was develo ped and its analytical performancecharacteristics have been determined by [employer] [place]. It hasnot been cleared or approved by the U.S. Food and DrugAdministration. This assay has been validated pursuantto the CLIA regulations and is used for clinicalpurposes.THIS TEST WAS PERFORMED AT:[employer] [id number] [place] [address]NHGHKMTLAURY ELLIS MD,PHD 05/25/2024 6:30 AM EDT 05/25/2024 6:30 AM EDT Generic External Data Provider LAB BLOOD ORDERAB LES Final Result Performing Organization Address City/[facility]/ZIP Co de Phone Number [facility] [address] [place] [phone] * Vitamin A (05/25/2024 6:30 AM EDT) Pathologist [facility] Vitamin A (Retinol) 74 38 - 98 mcg/dL [facility] Comment:Vitamin supplementat ion within 24 hours prior toblood draw may affect the accuracy of the results.This test was developed and its analytical performancecharacteristics have been determined by [employer] [place], [place]. It hasnot been cleared or approved by the U.S. Food and DrugAdministration. This assay has been validated pursuantto the CLIA regulations and is used for clinicalpurposes.THIS TEST WAS PERFORMED AT:[employer] [id number] [place] [address]EDBXIFOLAURY ELLIS MD,PHD 05/25/2024 6:30 AM EDT 05/25/2024 6:30 AM EDT Generic External Data Provider LAB BLOOD ORDERAB LES Final Result Performing Organization Address [facility] Co de Phone Number [facility] [address] [place] [phone] * (ABNORMAL) C-reactive Protein (05/25/2024 6:30 AM EDT) C Reactive Protein 1.04(H) < or = 0.50 mg/dL [facility] 05/25/2024 6:30 AM EDT 05/25/2024 6:30 AM EDT us Generic External Data Provider LAB BLOOD ORDERAB LES Final Result Performing Organization Address [facility]/ZIP Co de Phone Number [facility] [address] [place] [phone] * Vitamin B1 (05/25/2024 6:30 AM EDT) Vitamin B1 21 8 - 30 nmol/L [facility] Comment:Vitamin supplementat ion within 24 hours prior toblood draw may affect the accuracy of the results.This test was developed and its analytical performancecharacteristics have been determined by [employer] [place], [place]. It hasnot been cleared or approved by the U.S. Food and DrugAdministration. This assay has been validated pursuantto the CLIA regulations and is used for clinicalpurposes.THIS TEST WAS PERFORMED AT:[employer] [id number] [place] [address]ZQEKPJSLAURY ELLIS MD,PHD 05/25/2024 6:30 AM EDT 05/25/2024 6:30 AM EDT Generic External Data Provider LAB BLOOD ORDERAB LES Final Result Performing Organization Address [facility] Co de Phone Number [facility] [address] [place] [phone] * (ABNORMAL) Hemoglobin A1c (05/25/2024 6:30 AM EDT) Only the most recent of2 resultswithin the time period is included. Hemoglobin A1c 6.2(H) <6.0 % [facility] Comment:Hemoglobin A1C Refer ence Range Adults: 4.8 - 6.0 % Non diabetic: < 6.0 % Goal: < 7.0 %Additional Action Suggested: > 8.0 %Note: Hemoglobin A1c results are invalid for patients with abnormal amounts of HbF. Blood transfusions may impact the HbA1c concentration in the patient sample. Estimated Average Glucose 131 mg/dL [facility] Comment:eAG = Estimated ave rage glucose which is %A1C expressed asaverage glucose, using the formula of the A8V-WmdgkgmWpalagu Glucose study (ADAG), Diabetes Care, Vol.31,#8,2007 05/25/2024 6:30 AM EDT 05/25/2024 6:30 AM EDT us Generic External Data Provider LAB BLOOD ORDERAB LES Final Result Performing Organization Address City/[facility]/ZIP Co de Phone Number [facility] [address] [place] [phone] * Ferritin (05/25/2024 6:30 AM EDT) Ferritin 70 20 - 250 ng/mL [facility] 05/25/2024 6:30 AM EDT 05/25/2024 6:30 AM EDT Generic External Data Provider LAB BLOOD ORDERAB LES Final Result Performing Organization Address [facility] Co de Phone Number [facility] [address] [place] [phone] * (ABNORMAL) Lipid Panel, Standard (05/25/2024 6:30 AM EDT) Only the most recent of2 resultswithin the time period is included. Triglycerides 120 <150 mg/dL [facility] Comment:Desirable Triglyceri de: less than 150 mg/dLBorderline High Triglyceride 150-199 mg/dLHigh Triglyceride: 200-499 mg/dLVery High Triglyceride: greater than or equal to 5OO mg/dL Cholesterol 139 <200 mg/dL [facility] Comment:Desirable Cholestero l: less than 200 mg/dLBorderline High Cholesterol: 200-239 mg/dLHigh Cholesterol: greater than 239 mg/dL LDL Cholesterol Calculated 80 <100 mg/dL [facility] Comment:Desirable LDL: less than 100 mg/dLNear Optimal/Above Optimal LDL: 110- 129 mg/dLBorderline High LDL: 130-159 mg/dLHigh LDL: 160-189 mg/dLVery High LDL: greater than or equal to 190 mg/dL HDL Cholesterol 35(L) >40 mg/dL [facility] Comment:Desirable HDL: great er than 40 mg/dL Note: This HDL assay may give artificially low results in patients with liver disease. 05/25/2024 6:30 AM EDT 05/25/2024 6:30 AM EDT us Generic External Data Provider LAB BLOOD ORDERAB LES Final Result [facility] [address] [place] [address] [phone] * (ABNORMAL) Comprehensive Metabolic Panel (05/25/2024 6:30 AM EDT) Sodium 141 135 - 145 mmol/L [facility] Potassium 4.7 3.3 - 5.1 mmol/L [facility] Chloride 111(H) 96 - 108 mmol/L [facility] Carbon Dioxide 23 22 - 29 mmol/L [facility] Anion Gap 12 12 - 20 [facility] Urea Nitrogen (BUN) 26(H) 9 - 16 mg/dL [facility] Creatinine, Serum 1.31 0.5 - 1.4 mg/dL [facility] Estimated Glomerular Filt Rate 59 [facility] Comment:Chronic Kidney Disea se: Estimated GFR < 60 mL/min/1.67x7Gwuxzo Kidney Disease: Estimated GFR < 15 mL/min/1.73m2 Glucose 123(H) 60 - 115 mg/dL [facility] Calcium 9.2 8.4 - 10.2 mg/dL [facility] Bilirubin, Total 0.3 0.0 - 1.0 mg/dL [facility] Aspartate Amino Transferase 29 5 - 37 U/L [facility] Alanine Aminotransferase 29 0 - 40 U/L [facility] Total Protein 7.2 6.5 - 8.0 g/dL [facility] Albumin Level 3.6 3.5 - 5.0 g/dL [facility] Alkaline Phosphatase 66 39 - 117 U/L [facility] 05/25/2024 6:30 AM EDT 05/25/2024 6:30 AM EDT Generic External Data Provider LAB BLOOD ORDERAB LES Final Result Performing Organization Address City/[facility]/ZIP Co de Phone Number [facility] [address] [place] [address] [phone] * POCT Glucose (05/18/2024 9:21 AM EDT) Only the most recent of2 resultswithin the time period is included. Pathologist [facility] Glucose Blood, POC 124 60 - 200 mg/dL QC Media Lot # [id number] Lot# Expiration Date 73,025 Blood Capillary blood specimen / Unknown 05/18/2024 9:21 AM EDT us Adriane Schultz MD POINT OF CARE TEST ENTER/EDIT OR DERABLES Final Result * (ABNORMAL) Glucose, Whole Blood (04/17/2024 8:10 AM EST) Pathologist [facility] Glucose, Whole Blood 119(H) 60 - 115 mg/dL [facility] Comment:METER #: [id number] Testing performed in the Endocrinology Department [address], [address], [facility]. 04/17/2024 8:10 AM EST 04/17/2024 8:13 AM EST Generic External Data Provider LAB BLOOD ORDERAB LES Final Result Performing Organization Address City/[facility]/ZIP Co de Phone Number [facility] [address] [place] [address] [phone] * POCT Rapid Covid-19 BinaxNOW (04/16/2024 3:14 PM EST) [facility] Rapid COVID Ag Negative QC Media Lot # [id number] Lot# Expiration Date ,026 Swab 04/16/2024 3:14 PM EST Anson Stapleton MD POINT OF CARE TEST ENTER/EDIT ORDERABLES Final Result * POCT Rapid Influenza B OSOM (04/16/2024 3:13 PM EST) [facility] Rapid Influenza B Ag Negative Negative, Indeterminate QC Media Lot # [id number] Lot# Expiration Date Swab 04/16/2024 3:13 PM EST Anson Stapleton MD POINT OF CARE TEST ENTER/EDIT ORDERABLES Final Result * POCT Rapid Influenza A OSOM (04/16/2024 3:13 PM EST) [facility] Rapid Influenza A Ag Negative Negative, Indeterminate QC Media Lot # [id number] Lot# Expiration Date Swab Nasopharyngeal structure / Unknown 04/16/2024 3:13 PM EST Anson Stapleton MD POINT OF CARE TEST ENTER/EDIT ORDERABLES Final Result * (ABNORMAL) Basic Metabolic Panel (04/15/2024 8:29 AM EST) [facility] Sodium 139 135 - 145 mmol/L [facility] Potassium 4.6 3.3 - 5.1 mmol/L [facility] Chloride 105 96 - 108 mmol/L [facility] Carbon Dioxide 27 22 - 29 mmol/L [facility] Anion Gap 12 12 - 20 [facility] Urea Nitrogen (BUN) 34(H) 9 - 16 mg/dL [facility] Creatinine, Serum 1.69(H) 0.5 - 1.4 mg/dL [facility] Estimated Glomerular Filt Rate 44 [facility] Comment:Chronic Kidney Disea se: Estimated GFR < 60 mL/min/1.36z9Vxkxtr Kidney Disease: Estimated GFR < 15 mL/min/1.73m2 Glucose 117(H) 60 - 115 mg/dL [facility] Calcium 9.1 8.4 - 10.2 mg/dL [facility] 04/15/2024 8:29 AM EST 04/15/2024 8:29 AM EST us Generic External Data Provider LAB BLOOD ORDERAB LES Final Result Performing Organization Address [facility] Phone Number [facility] [address] [place] [phone] * (ABNORMAL) Albumin, Random Urine W/Creatinine (04/15/2024 8:26 AM EST) Creatinine, Urine 142.30 mg/dL [facility] Microalbumin Urine >2,000.0 mg/L [facility] Microalbum Creatinine Ratio Ur 1,405.4(H ) <30 ug/mg cr [facility] Comment:Albumin/Creatinine R atio Reference Ranges: Normal: < 30 ug/mg creatinine Microalbuminuria: 30 - 300 ug/mg creatinineClinical Albuminuria: > 300 ug/mg creatinine 04/15/2024 8:26 AM EST 04/15/2024 9:32 AM EST us Generic External Data Provider LAB URINE ORDERAB LES Final Result Performing Organization Address [facility] Number [facility] [address] [place] [phone] * Hepatitis C Ab (11/09/2022 9:00 AM EDT) Hepatitis C Antibody Nonreactive Nonreactive [facility] Comment:Antibodies to HCV no t detected; does not exclude early acuteHCV infection. Blood 11/09/2022 9:00 AM EDT 11/09/2022 2:35 PM EDT us Martha Joyner MD LAB BLOOD ORDERABLES Final Re sult Performing Organization Address [facility]/ZIP Co de Phone Number [facility] [address] [place] [address] [phone] * HIV 1/2 ANTIGEN/ANTIBODY,FOURTH GENERATION W/RFL [...] ? For additional information please refer to http://education.Quant the News/faq/YWB686 (This link is being provided for informational/ educational purposes only.) ? The performance of this assay has not been clinically validated in patients less than 2 years old. ?? 05/26/2021 9:29 AM EDT us Martha Joyner MD LAB BLOOD ORDERABLES Final Re sult [facility] [address] from Last 3 Months or Most Recently Relevant to Health Maintenance Insurance [facility] DENTAL - HSN PARTIAL (MEDICAID) Care Teams Plastic Surgeon Relationship Specialty Start Date End Date Martha Joyner MD [address] [place] [address] PCP - General Family Medicine 02/22/21 Endo [facility] Nurse Practitioner Endocrinology 01/08/24
--- OUTSIDE RECORDS SUMMARY | 2024-06-24 08:11 | XMS_ITS | Encounter Summary ---
Author Organization [employer] Address [address] [address] [place] [address] Care Team Providers Care College Hire Name Role Phone Martha Joyner MD Primary Care Provider [phone] Reason for Visit * Reason Comments Med Refill Encounter Details Date Type Department Care Team ([facility] Contact Info) Description 05/30/2023 Refill [facility] MED & PEDS [address] [place], [place] [phone] Martha Joyner MD [address] [place] [address] Primary hypertension Social History Tobacco Use Types [...] Description 07/17/2024 8:00 AM EDT Office Visit [facility] CH[facility] ADULT DENTAL [address] [place] [address] Harvinder Newberry documented as of this encounter Visit Diagnoses Diagnosis Primary hypertension Unspecified essential hypertension documented in this encounter Additional Health Concerns Assessment Noted Time PHQ-9 Depression Total Score: 1 02/15/20 22 4:00 PM EST documented as of this encounter Care Teams College Hire Relationship Specialty Start Date End Date Martha Joyner MD [address] [place] [address] PCP - General Family Medicine 02/22/21 [facility] Nurse Practitioner Endocrinology 01/08/24 documented as of this encounter
--- OUTSIDE RECORDS SUMMARY | 2024-06-24 08:11 | XMS_ITS | Encounter Summary ---
Author Organization [facility] Address [address] [address] Phone Care Team Providers Care Senior Principal Software Engineer Name Role Phone Martha Joyner MD Primary Care Provider [phone] Encounter Details Date Type Department Care Team (Late st Contact Info) Description 06/29/2021 Documentation Only [facility] [address] [place] [address] Martha Joyner MD [address] [place] [address] [phone] Social History Tobacco Use Types Packs/Day Years [...] Visit [facility] [address] [place] [address] [address] Jose Guadalupe Coleman MD [address] [place] [address] [place] [phone] documented as of this encounter Visit Diagnoses Not on filedocumented in this encounter Care Teams Senior Principal Software Engineer Relationship Specialty Start Date End Date Martha Joyner MD PCP - General Family Medicine 06/29/21 documented as of this encounter
--- OUTSIDE RECORDS SUMMARY | 2024-06-24 08:11 | XMS_ITS | Encounter Summary ---
Author Organization [employer] Address [address] [place] [address] Care Team Providers Care Stock Handler Floorperson Name Role Phone Martha Joyner MD Primary Care Provider [phone] Reason for Visit * Reason Comments Med Refill Encounter Details Date Type Department Care Team ([facility] Contact Info) Description 03/11/2023 Telephone [facility] CHC MED & PEDS [address] [place], [place] [phone] Martha Joyner MD 505 [place] [address] Med Refill Social History Tobacco Use Types [...] note were not included. MD Deya Bryson [facility] Med & Peds Nurses Caller: Unspecified (Yesterday, 1:10 PM) Hi! Please could you follow up on the urology referral I placed, and if a appointment already givencould it be scheduled as soon as possible? TC placed to [facility] urology @ [phone] to see if patient has been seen [...] chart. TC placed to [facility] @ [phone] to request U/S report be faxed to [facility] @ [phone]. They faxed it. TC placed to patient to encourage him to make a sooner appointment with urology or at least keep his upcoming appointment. No answer. LM to call us back. Routing to Dr. Doran so he is aware and back to [facility] nurses so they can try again. Patient has f/u with PCP scheduled for 04/02/23. Notes added to appointment for that day. documented in this encounter Plan of Treatment Upcoming Encounters Date Type Department Care Team (Late st Contact Info) Description 07/17/2024 8:00 AM EDT Office Visit [facility] CHC ADULT DENTAL [address] [place] [address] Harvinder Newberry documented as of this encounter Visit Diagnoses Not on filedocumented in this encounter Additional Health Concerns Assessment Noted Time PHQ-9 Depression Total Score: 1 02/15/20 22 4:00 PM EST documented as of this encounter Care Teams Stock Handler Floorperson Relationship Specialty Start Date End Date Martha Joyner MD [address] [place] [address] PCP - General Family Medicine 02/22/21 [facility] Nurse Practitioner Endocrinology 01/08/24 documented as of this encounter
== END 2024-06-24 08:04 | disposition home or self-care (01) ==
LOC: HO.US 08:03
PROVIDERS: PCP Family Medicine; Visit Provider Surgery
DX: E66.01 Morbid (severe) obesity due to excess calories (principal); E29.1 Testicular hypofunction; R80.9 Proteinuria, unspecified; I12.9 Hypertensive chronic kidney disease with stage 1 through stage 4 chronic kidney disease, or unspecified chronic kidney disease; E11.22 Type 2 diabetes mellitus with diabetic chronic kidney disease; N18.30 Chronic kidney disease, stage 3 unspecified
CPT/HCPCS: 76700; 76981

== ENCOUNTER → 2024-06-24 08:04 | Outpatient (BNV) | payer OTHER, SELFPAY | PROVIDERS: PCP Family Medicine; Visit Provider Radiology Diagnostic Radiology | DX: E66.01 Morbid (severe) obesity due to excess calories (principal) | CPT/HCPCS: 76700; 76981 ==

== ENCOUNTER → 2024-07-07 08:49 | Day surgery (SDC) | payer OTHER, SELFPAY ==
[2024-07-02 16:06] VITALS: BMI 43.0
--- OUTSIDE RECORDS SUMMARY | 2024-07-03 14:49 | XMS_ITS | Encounter Summary ---
Author Organization [employer] Address [address] [facility] 7[address] [place] [address] Care Team Providers Care Parts Processor Name Role Phone Martha Joyner MD Primary Care Provider [phone] Reason for Visit * Reason Comments Med Refill Encounter Details Date Type Department Care Team ([facility] Contact Info) Description 03/11/[address] [facility] CHC MED & PEDS [address] [place], [place] [phone] Martha Joyner MD [address] [place] [address] Med Refill Social History Tobacco Use Types [...] as soon as possible? TC placed to [facility] urology @ [phone] to see if patient has been seen [...] chart. TC placed to [facility] @ [phone] to request U/S report be faxed to [facility] @ [phone]. They faxed it. TC placed to patient to encourage him to make a sooner appointment with urology or at least keep his upcoming appointment. No answer. LM to call us back. Routing to Dr. Doran so he is aware and back to [facility] nurses so they can try again. Patient has f/u with PCP scheduled for 04/02/23. Notes added to appointment for that day. documented in this encounter Plan of Treatment Upcoming Encounters Date Type Department Care Team (Late st Contact Info) Description 07/17/2024 8:00 AM EDT Office Visit [facility] CHC ADULT DENTAL [address] [place] [address] Harvinder Newberry documented as of this encounter Visit Diagnoses Not on filedocumented in this encounter Additional Health Concerns Assessment Noted Time PHQ-9 Depression Total Score: 1 02/15/20 22 4:00 PM EST documented as of this encounter Care Teams Parts Processor Relationship Specialty Start Date End Date Martha Joyner MD [address] [place] [address] PCP - General Family Medicine 02/22/21 [facility] Nurse Practitioner Endocrinology 01/08/24 documented as of this encounter
--- OUTSIDE RECORDS SUMMARY | 2024-07-03 14:49 | XMS_ITS | Encounter Summary ---
Author Organization [facility] Address [address] [address] Phone Care Team Providers Care Spool Sorter Name Role Phone Martha Joyner MD Primary Care Provider [phone] Encounter Details Date Type Department Care Team (Late st Contact Info) Description 06/29/2021 Documentation Only [facility] [address] [place] [address] Martha Joyner MD [address] [place] [address] [phone] Social History Tobacco Use Types Packs/Day Years [...] [facility] [address] [place] [address] Jose Guadalupe Coleman MD [address] [place] [address] [place] [phone] documented as of this encounter Visit Diagnoses Not on filedocumented in this encounter Care Teams Spool Sorter Relationship Specialty Start Date End Date Martha Joyner MD PCP - General Family Medicine 06/29/21 documented as of this encounter
--- OUTSIDE RECORDS SUMMARY | 2024-07-03 14:49 | XMS_ITS | Encounter Summary ---
Author Organization [employer] Address [address] [facility] 7t [place] [address] Care Team Providers Care Willower Name Role Phone Martha Joyner MD Primary Care Provider [phone] Reason for Visit * Reason Comments Med Refill Encounter Details Date Type Department Care Team ([facility] Contact Info) Description 01/03/2023 Refill [facility] CHC MED & PEDS [address] [place], [place] [phone] Tereza Wagner MD [address] [place] [address] Social History Tobacco Use Types Packs/Day Years [...] [facility] ADULT DENTAL [address] [place] [address] Harvinder Newberry documented as of this encounter Visit Diagnoses Not on filedocumented in this encounter Additional Health Concerns Assessment Noted Time PHQ-9 Depression Total Score: 1 02/15/20 22 4:00 PM EST documented as of this encounter Care Teams Willower Relationship Specialty Start Date End Date Martha Joyner MD [address] [place] [address] PCP - General Family Medicine 02/22/21 [facility] Nurse Practitioner Endocrinology 01/08/24 documented as of this encounter
--- OUTSIDE RECORDS SUMMARY | 2024-07-03 14:49 | XMS_ITS | Clinical Summary ---
Author Organization [employer] Address [address] [facility] [address] [place] [address] Care Team Providers Care Program Scheduler Name Role Phone Martha Joyner MD Primary Care Provider [phone] Allergies No known active allergies Medications * This document contains information received from the source organization and may not represent a complete record from that organization. albuterol 108 (90 Base) MCG/ACT inhaler Inhale 2 puffs every 4 (four) hours if needed. Active glucose blood (FREESTYLE LITE) test strip 1 each at bed time. Active lidocaine (Lidoderm) 5 % patch Place [...] tablet 11 025 2025 Active Continuous Glucose Coach Builder (FreeStyle Jeannette 3 [place]) deviceIndicatio ns:Type 2 diabetes mellitus with hyperglycemia, without long-term current use of insulin ([facility]) 1 each Once per day. Use as directed for CGM 1 each Active Continuous Glucose Sensor (FreeStyle Jeannette 3 Plus Sensor) miscIndications :Type 2 diabetes mellitus with hyperglycemia, without long-term current use of insulin ([facility]) 1 each every 15 days. Apply 1 every 15 days as directed for CGM 2 each Active clomiPHENE (Clomid) 50 MG tablet TAKE 1 TABLET BY MOUTH DAILY ON ON SATURDAY, SATURDAY AND Saturday Active Mounjaro 12.5 MG/0.5ML solution auto-injector INJECT ONE PEN (=12.5MG) SUBCUTANEOUSLY ONCE A WEEK DIRECTED Active acetic acid-hydrocorti sone (Vosol-HC) otic solutionIndicat ions:Ear itch INSTILL 4 DROPS IN EACH EAR TWICE DAILY 10 mL 025 Active acetic acid-hydrocorti sone (Vosol-HC) otic solutionIndicat ions:Ear itch Administer 4 drops into each ear 2 times daily. 10 mL 3 024 2024 Discontinued Active Problems Problem Noted Date Diagnosed Date Itch of eye 01/08/2024 PTSD (post-traumatic stress disorder) 09/12/2023 Fractured dental hinduism with loss of materi al 07/31/2023 JERRY [...] Glu = 109 Patient is managed by [facility] [place]. His DM2 is trending in the [...] levels. Continue taking mounjaro as perscribed by energy engineer. Will montior and lower metformin as needed. [...] low availability in pharmacies will cont with trjigar for now and readdress in the future. He also brought up use of SGLT-2, given information and discuss introduction in the future, f/up in 4-6 weeks. Assessment & Plan (02/14/2022 5:11 PM EST): Patient with elevated a1c of 10.7% and glucoe of [facility]. No measuring his glucose at home, will [...] Encounters Date Type Department Care Team Description 07/02/2024 Refill [facility] [address] [place] [address] Martha Joyner MD Ear itch 06/07/2024 Refill [facility] [address] [place] [address] Martha Joyner MD Type 2 diabetes mellitus with hyperglycemia, without long-term current use of insulin ([facility]) 05/26/2024 Travel 05/25/2024 Orders Only GENERIC EXTERNAL DATA DEPARTMENT Provider, Generic External Data 05/18/2024 8:30 AM EDT Office Visit [facility] [address] [place] [address] Adriane Schultz MD Type 2 diabetes mellitus with hyperglycemia, without long-term current use of insulin (CMS/HCC) (Primary Dx); Hypoglycemic episode in patient with diabetes mellitus (CMS/[facility]); Primary hypertension; Plantar fasciitis 05/18/2024 Telephone [facility] [address] [place] [address] Martha Joyner MD Change PCP 05/18/2024 Travel 05/06/2024 Telephone [facility] [address] [place] [address] Martha Joynre MD 05/04/2024 Telephone [facility] [address] [place] [address] Martha Joyner MD Nurse Triage 04/22/2024 8:00 AM EST Office Visit [facility] [address] [place] [address] Roxi Reagan DMD 04/17/2024 Orders Only GENERIC EXTERNAL DATA DEPARTMENT Provider, Generic External Data 04/16/2024 2:30 PM EST Office Visit [facility] [address] [place] [address] Anson De Leon MD Stage 3b chronic kidney disease (CMS/HCC) (Primary Dx); Type 2 diabetes mellitus with hyperglycemia, without long-term current use of insulin (CMS/HCC); Congestion of nasal sinus; Albuminuria 04/16/2024 Travel 04/16/2024 Telephone [facility] [address] [place] [address] Adeola Velásquez RN 04/15/2024 Orders Only GENERIC EXTERNAL DATA DEPARTMENT Provider, Generic External Data from Last 3 Months Immunizations Name Administration [...] Description 07/17/2024 8:00 AM EDT Office Visit [facility] [address] [place] [address] Harvinder Newberry Health Maintenance Due Date Last [...] 19+ 3-dose series) 06/13/1998 COVID-19 Vaccine ( - season) 2023 02/21/2022, 08/03/2021 Dental Prophylaxis 07/20/2024 01/20/2024 SDOH Screening 07/25/2024 [...] Procedure Name Priority Date/Time Associated Diagnosis Comments US ABDOMEN COMPLETE WITH ELASTOGRAPHY Routine 06/24/2024 8:12 AM EDT XR CHEST 2 VIEWS Routine 05/25/2024 1:52 [...] hyperglycemia, without long-term current use of insulin ([facility]) 2 O AMALGAM - 1 SURF, PRIMARY [...] hyperglycemia, without long-term current use of insulin ([facility]) LIPID PANEL, STANDARD Routine 04/15/2024 8:29 AM EST BASIC METABOLIC PANEL Routine 04/15/2024 8:29 AM EST HEMOGLOBIN A1C Routine 04/15/2024 8:29 AM EST ALBUMIN, RANDOM URINE W/CREATININE Routine 04/15/2024 8:26 AM EST PANORAMIC RADIOGRAPHIC IMAGE Routine 02/13/2024 [...] Recently Relevant to Health Maintenance Results * US Abdomen Comp w elastography (06/24/2024 8:12 AM EDT) Anatomical Region Laterality Modality Abdomen Ultrasound 06/24/2024 8:12 AM EDT Narrative 06/26/2024 8:05 AM EDT ? [facility] ?[address] ?[place] [address] ? Ultrasound Report ? Signed ? Patient: Edd Shaw ?MR#: M ?? [id number] ? : 1980 ?Acct:[id number] ? Age/Sex: 44 / M ?ADM Date: 06/24/24 ? Loc: HO.US ? Attending Dr: Obey Mendoza MD ? Ordering Physician: Obey Mendoza MD ?? Date of Service: 06/24/24 ?? Procedure(s): US abdomen comp w elastography ?? Accession Number(s): [id number] ? cc: Obey Mendoza MD; Martha Joyner MD ? EXAMINATION: ??US ABDOMEN COMPLETE WITH LIVER ELASTOGRAPHY ? HISTORY: E66.01 - Morbid (severe) obesity due to excess calories ? TECHNIQUE: Real-time grayscale ultrasound imaging of the abdomen was ?? performed and images were reviewed. ? COMPARISON: There are no prior studies for comparison. ? FINDINGS: ?? Liver: ??The right lobe of the liver measures 18.2 cm in size. The left ?? lobe of the liver measures 11.3 cm in size. The liver demonstrates ?? increased echotexture, consistent with steatosis. There are scattered ?? areas of focal fatty sparing. ??No focal mass or intrahepatic biliary ?? ductal dilatation is identified. ??There is normal hepatopedal flow in ?? the portal vein. ? Ultrasound elastography of the liver was performed with 10 separate ?? measurements of the liver parenchyma with the patient in the supine ?? position. ??Measurements were obtained approximately 2 cm below ?? Michel's capsule and perpendicular to the capsule. ? The median shear wave velocity is 1.37 m/s. ?? The interquartile range/median (IQR/median) is 0.18. ? Gallbladder and biliary tree: The gallbladder is unremarkable, without ?? evidence of calculi, wall thickening, or pericholecystic fluid. ??There ?? is no sonographic Prado sign. ??The common bile duct is normal in ?? caliber measuring 4 mm. ? Kidneys: ??The right kidney measures 11.9 cm in length. The left kidney ?? measures 11.4 cm in length. There is a 1.3 cm cyst at the upper pole of ?? the left kidney. ??The kidneys are otherwise unremarkable, without ?? evidence of solid masses, hydronephrosis, or calculi. ? Pancreas: The pancreatic head, neck, and body are unremarkable. The ?? pancreatic tail is obscured by bowel gas. ? Spleen: The spleen is normal in size and contour, measuring 11.1 cm in ?? length. ? Abdominal aorta and inferior vena cava: The visualized portions of the ?? abdominal aorta and inferior vena cava are normal in caliber. ? There is no free fluid in the abdomen. ? US/US abdomen comp w elastography ?? IMPRESSION: ? Hepatomegaly and hepatic steatosis. ? The median shear wave velocity in the liver is 1.37 m/s, corresponding ?? to a median liver stiffness of 5.71 kPa. ??The IQR/median value is 0.18. ?? This is indicative of a poor quality data set, and the estimated liver ?? stiffness may be unreliable. ?? Findings are indicative of a low elastography value which rules out ?? advanced chronic liver disease in asymptomatic patients. ? REFERENCE: ?? Society of Radiologists in Ultrasound Liver Stiffness Thresholds (2019): ? LIVER STIFFNESS THRESHOLDS: ?? *Shear wave velocity less than 1.3 m/s (Liver Stiffness equal or less ?? than 5 kPa): ??High probability of being normal. ?? *Shear wave velocity less than 1.7 m/s (Liver Stiffness less than 9 ?? kPa): ??In the absence of other known clinical signs, rules out ?? compensated advanced chronic liver disease. ?? *Shear wave velocity between 1.7-2.1 m/s (Liver Stiffness 9-13 kPa): ? Suggestive of compensated advanced chronic liver disease but need ?? further test for confirmation. ?? *Shear wave velocity between 2.1-2.4 m/s (Liver Stiffness 13-17 kPa): ? Rules in compensated advanced chronic liver disease. ?? *Shear wave velocity ??greater than 2.4 m/s (Liver Stiffness over 17 ?? kPa): ??Suggestive of clinically significant portal hypertension. ? QUALITY OF DATA SET: ?? *IQR/Median value equal or less than 0.15 implies a quality data set. ?? *IQR/Median value over 0.15 implies a poor quality data set. ? SIGNIFICANT CHANGE FROM PRIOR EXAM: ?? Significant change if liver stiffness measurement is 10% or greater ?? from prior exam. ? OTHER CONSIDERATIONS: ?? The stage of liver fibrosis may be overestimated in the setting of ?? acute hepatitis, liver inflammation, elevated liver function tests, ?? hepatic vascular congestion, obstructive cholestasis, non-fasting ?? state, and infiltrative diseases such as amyloidosis and lymphoma. ??In ?? some patients with NAFLD, the liver stiffness thresholds for ?? compensated advanced chronic liver disease may be lower. ??In causes ?? other than viral hepatitis and NAFLD, liver stiffness thresholds are ?? not well established. ? Electronically signed by: ??Ady Spear MD ??06/26/2024 08:03 AM EDT ?? RP ? Dictated By: ?Ady Spear MD ? Signed By: ?<Electronically signed by Ady Spear MD in OV> ?06/26/24 0803 ? DD/ 08 ? TD/TT: 06/24/24 09 ? Handkerchief Folder: ? Procedure Note Antonella Viramontes - 06/26/[address] [address] Ultrasound Report Signed Patient: Donal Shaw#: M [id number] : 1980Acct:[id number] Age/Sex: 44 / MADM Date: 06/24/24 Loc: HO.US Attending Dr: Obey Mendoza MD Ordering Physician: Obey Mendoza MD Date of Service: 06/24/24 Procedure(s): US abdomen comp w elastography Accession Number(s): [id number] cc: Obey Mendoza MD; Martha Joyner MD EXAMINATION: US ABDOMEN COMPLETE WITH LIVER ELASTOGRAPHY HISTORY: E66.01 - Morbid (severe) obesity due to excess calories TECHNIQUE: Real-time grayscale ultrasound imaging of the abdomen was performed and images were reviewed. COMPARISON: There are no prior studies for comparison. FINDINGS: Liver: The right lobe of the liver measures 18.2 cm in size. The left lobe of the liver measures 11.3 cm in size. The liver demonstrates increased echotexture, consistent with steatosis. There are scattered areas of focal fatty sparing. No focal mass or intrahepatic biliary ductal dilatation is identified. There is normal hepatopedal flow in the portal vein. Ultrasound elastography of the liver was performed with 10 separate measurements of the liver parenchyma with the patient in the supine position. Measurements were obtained approximately 2 cm below Michel's capsule and perpendicular to the capsule. The median shear wave velocity is 1.37 m/s. The interquartile range/median (IQR/median) is 0.18. Gallbladder and biliary tree: The gallbladder is unremarkable, without evidence of calculi, wall thickening, or pericholecystic fluid. There is no sonographic Prado sign. The common bile duct is normal in caliber measuring 4 mm. Kidneys: The right kidney measures 11.9 cm in length. The left kidney measures 11.4 cm in length. There is a 1.3 cm cyst at the upper pole of the left kidney. The kidneys are otherwise unremarkable, without evidence of solid masses, hydronephrosis, or calculi. Pancreas: The pancreatic head, neck, and body are unremarkable. The pancreatic tail is obscured by bowel gas. Spleen: The spleen is normal in size and contour, measuring 11.1 cm in length. Abdominal aorta and inferior vena cava: The visualized portions of the abdominal aorta and inferior vena cava are normal in caliber. There is no free fluid in the abdomen. US/US abdomen comp w elastography IMPRESSION: Hepatomegaly and hepatic steatosis. The median shear wave velocity in the liver is 1.37 m/s, corresponding to a median liver stiffness of 5.71 kPa. The IQR/median value is 0.18. This is indicative of a poor quality data set, and the estimated liver stiffness may be unreliable. Findings are indicative of a low elastography value which rules out advanced chronic liver disease in asymptomatic patients. REFERENCE: Society of Radiologists in Ultrasound Liver Stiffness Thresholds (2019): LIVER STIFFNESS THRESHOLDS: *Shear wave velocity less than 1.3 m/s (Liver Stiffness equal or less than 5 kPa): High probability of being normal. *Shear wave velocity less than 1.7 m/s (Liver Stiffness less than 9 kPa): In the absence of other known clinical signs, rules out compensated advanced chronic liver disease. *Shear wave velocity between 1.7-2.1 m/s (Liver Stiffness 9-13 kPa): Suggestive of compensated advanced chronic liver disease but need further test for confirmation. *Shear wave velocity between 2.1-2.4 m/s (Liver Stiffness 13-17 kPa): Rules in compensated advanced chronic liver disease. *Shear wave velocity greater than 2.4 m/s (Liver Stiffness over 17 kPa): Suggestive of clinically significant portal hypertension. QUALITY OF DATA SET: *IQR/Median value equal or less than 0.15 implies a quality data set. *IQR/Median value over 0.15 implies a poor quality data set. SIGNIFICANT CHANGE FROM PRIOR EXAM: Significant change if liver stiffness measurement is 10% or greater from prior exam. OTHER CONSIDERATIONS: The stage of liver fibrosis may be overestimated in the setting of acute hepatitis, liver inflammation, elevated liver function tests, hepatic vascular congestion, obstructive cholestasis, non-fasting state, and infiltrative diseases such as amyloidosis and lymphoma. In some patients with NAFLD, the liver stiffness thresholds for compensated advanced chronic liver disease may be lower. In causes other than viral hepatitis and NAFLD, liver stiffness thresholds are not well established. Electronically signed by: Ady Spear MD 06/26/2024 08:03 AM EDT Dictated By: Ady Spear MD Signed By: <Electronically signed by Ady Spear MD in OV> 06/26/24 0803 DD/ 0812 TD/TT: 06/24/24 0902 Handkerchief Folder: us [facility] External Provider IMG US PROCEDURES Edited Result - Final * XR Chest 2 Views (05/25/2024 1:52 PM EDT) Anatomical Region Laterality Modality Chest Radiographic Mary ging 05/25/2024 1:52 PM EDT Narrative 05/25/2024 1:54 PM EDT ? [facility] ?[address] ?[place] [address] ?XRay Report ? Signed ? Patient: Aaliyah Mendieta,Edd ?MR#: M ?? [id number] ? : 1980 ?Acct:[id number] ? Age/Sex: 43 / M ?ADM Date: 05/25/24 ? Loc: HO.XRAY ? Attending Dr: Obey Mendoza MD ? Ordering Physician: Obey Mendoza MD ?? Date of Service: 05/25/24 ?? Procedure(s): XR chest 2V ?? Accession Number(s): [id number] ? cc: Obey Mendoza MD; Martha Joyner [...] OV> ?05/25/24 1353 ? DD/ ? TD/TT: 05/25/242 ? Handkerchief Folder: ? Procedure Note Antonella Viramontes - 05/25/[address] [address] XRay Report Signed Patient: Aaliyah MendietaDonal#: M [id number] : 1980Acct:[id number] Age/Sex: 43 / MADM Date: 05/25/24 Loc: TRACE Attending Dr: Obey Mendoza MD Ordering Physician: Obey Mendoza MD Date of Service: 05/25/24 Procedure(s): XR chest 2V Accession Number(s): [id number] cc: Obey Mendoza MD; Martha Joyner MD [...] 1353 DD/ 1352 TD/TT: 05/25/24 1352 Handkerchief Folder: [facility] External Provider IMG XR PROCEDURES Final Result * Vitamin D, 25-Hydroxy, Total, Immunoassay (05/25/2024 6:30 AM EDT) Vitamin D 25-OH Total 67.5 >30 ng/mL [facility] Comment: Health Based Reference Values*< 20 ??ng/mL ??[id number] ng/mL ??Insufficient> 30 ??ng/mL ??Sufficient*Chris MERINO. N [...] ORDERAB LES Final Result Performing Organization Address [facility] Co de Phone Number [facility] [address] [place] [phone] * (ABNORMAL) Vitamin B12 (Cobalamin) and Folate Panel, Serum (05/25/2024 6:30 AM EDT) Vitamin B12 1,547(H) 200 - 900 pg/mL [facility] Comment:NORMAL 200-900 PG/ML INDETERMINATE 160-199 PG/ML DEFICIENT < 160 PG/ML Folate 10.6 > or = 4.0 ng/mL [facility] Comment:Reference Values:> o r = 4.0 ng/mL< 4.0 ng/mL suggests folate deficiency Methotrexate, aminopterin and folinic acid(leucovorin) are chemotherapeutic agents whose molecularstructures are similar to folate; therefore, the Architectfolate assay cannot be used for patients using these drugs. 05/25/2024 6:30 AM EDT 05/25/2024 6:30 AM EDT Generic External Data Provider LAB BLOOD ORDERAB LES Final Result Performing Organization Address [facility] Co de Phone Number [facility] [address] [place] [phone] * TSH with Reflex to Free T4 (05/25/2024 6:30 AM EDT) Pathologist [facility] TSH reflex Free T4 2.92 0.32 - 4.0 uIU/mL [facility] 05/25/2024 6:30 AM EDT 05/25/2024 6:30 AM EDT us Generic External Data Provider LAB BLOOD ORDERAB LES Final Result [facility] [address] [place], [place] [phone] * CBC auto differential (05/25/2024 6:30 AM EDT) White Blood Count 8.6 4.8 - 10.8 X10*3/uL [facility] Red Blood Count 5.79 4.60 - 5.80 X10*6/uL [facility] Hemoglobin 16.6 14.0 - 18.0 g/dl [facility] Hematocrit 49.1 42.0 - 52.0 % [facility] Mean Corpuscular Volume 84.8 80.0 - 98.0 fL [facility] Mean Corpuscular Hemoglobin 28.7 27.0 - 33.0 pg [facility] Mean Corpuscular HGB Conc 33.8 31.0 - 36.0 g/dl [facility] Red Cell Distribution Width 14.6 11.0 - 16.0 % [facility] Platelet Count 253 160 - 400 X10*3/uL [facility] Mean Platelet Volume 9.4 9.4 - 12.4 fL [facility] Neutrophils Percent Auto 58.2 45 - 73 % [facility] Imm Gran Pct Auto 0.3 0.0 - 0.4 % [facility] Lymphocytes Percent Auto 28.7 20 - 40 % [facility] Monocytes Percent Auto 8.2 2 - 11 % [facility] Eosinophils Percent Auto 3.8 0 - 4 % [facility] Basophils Percent Auto 0.8 0 - 2 % [facility] NRBC Pct Auto 0.0 0.0 - 0.2 /100WBC [facility] Neutrophils Absolute Auto 5.0 2.0 - 8.3 x10*3/uL [facility] Imm Gran Abs Auto 0.03 0.00 - 0.03 X10*3/uL [facility] Lymphocytes Absolute Auto 2.5 1.2 - 4.9 X10*3/uL [facility] Monocytes Absolute Auto 0.7 0.1 - 1.2 X10*3/uL [facility] Eosinophils Absolute Auto 0.3 0.0 - 0.4 X10*3/uL [facility] Basophils Absolute Auto 0.1 0.0 - 0.2 X10*3/uL [facility] NRBC Abs Auto 0.000 0.0 - 0.012 X10*3/uL [facility] 05/25/2024 6:30 AM EDT 05/25/2024 6:30 AM EDT Generic External Data Provider LAB BLOOD ORDERAB LES Final Result Performing Organization Address [facility] Co de Phone Number [facility] [address] [place] [phone] * Iron And Total Iron Binding Capacity (05/25/2024 6:30 AM EDT) Iron 46 45 - 160 mcg/dL [facility] Total Iron Binding Capacity 279 228 - 428 mcg/dL [facility] Percent Iron Saturation 16 15 - 50 % [facility] Unsaturated Iron Binding 233 ug/dL [facility] 05/25/2024 6:30 AM EDT 05/25/2024 6:30 AM EDT Generic External Data Provider LAB BLOOD ORDERAB LES Final Result Performing Organization Address [facility] Co de Phone Number [facility] [address] [place] [phone] * (ABNORMAL) Insulin (05/25/2024 6:30 AM EDT) Insulin 43(H) 2 - 29 uU/mL [facility] Comment:This test was perfor med [...] ORDERAB LES Final Result Performing Organization Address [facility] Co de Phone Number [facility] [address] [place] [phone] * Zinc (05/25/2024 6:30 AM EDT) Zinc 76 60 - 130 mcg/dL [facility] Comment:This test was develo ped and its analytical performancecharacteristics have been determined by [facility] [place], [place]. It hasnot been cleared or approved by the U.S. Food and DrugAdministration. This assay has been validated pursuantto the CLIA regulations and is used for clinicalpurposes.THIS TEST WAS PERFORMED AT:[employer] [id number] [place] [id number] ELLIS MD,PHD 05/25/2024 6:30 AM EDT 05/25/2024 6:30 AM EDT Generic External Data Provider LAB BLOOD ORDERAB LES Final Result Performing Organization Address [facility] de Phone Number [facility] [address] [place] [phone] * Vitamin A (05/25/2024 6:30 AM EDT) Vitamin A (Retinol) 74 38 - 98 mcg/dL [facility] Comment:Vitamin supplementat ion within 24 hours prior toblood draw may affect the accuracy of the results.This test was developed and its analytical performancecharacteristics have been determined by [facility] [place], [place]. It hasnot been cleared or approved by the U.S. Food and DrugAdministration. This assay has been validated pursuantto the CLIA regulations and is used for clinicalpurposes.THIS TEST WAS PERFORMED AT:[employer] [id number] [place] [id number] ELLIS MD,PHD 05/25/2024 6:30 AM EDT 05/25/2024 6:30 AM EDT Generic External Data Provider LAB BLOOD ORDERAB LES Final Result Performing Organization Address [facility] Co de Phone Number [facility] [address] [place] [phone] * (ABNORMAL) C-reactive Protein (05/25/2024 6:30 AM EDT) C Reactive Protein 1.04(H) < or = 0.50 mg/dL [facility] 05/25/2024 6:30 AM EDT 05/25/2024 6:30 AM EDT Generic External Data Provider LAB BLOOD ORDERAB LES Final Result Performing Organization Address [facility] Co de Phone Number [facility] [address] [place] [phone] * Vitamin B1 (05/25/2024 6:30 AM EDT) Vitamin B1 21 8 - 30 nmol/L [facility] Comment:Vitamin supplementat ion within 24 hours prior toblood draw may affect the accuracy of the results.This test was developed and its analytical performancecharacteristics have been determined by [facility] It hasnot been cleared or approved by the U.S. Food and DrugAdministration. This assay has been validated pursuantto the CLIA regulations and is used for clinicalpurposes.THIS TEST WAS PERFORMED AT:[employer] [id number] [place] [address]BRGBDQD W. MASON,MD,PHD 05/25/2024 6:30 AM EDT 05/25/2024 6:30 AM EDT us Generic External Data Provider LAB BLOOD ORDERAB LES Final Result Performing Organization Address [facility] de Phone Number [facility] [address] [place] [phone] * (ABNORMAL) Hemoglobin A1c (05/25/2024 6:30 AM EDT) Only the most recent of2 resultswithin the time period is included. Hemoglobin A1c 6.2(H) <6.0 % [facility] Comment:Hemoglobin A1C Refer ence Range Adults: 4.8 - 6.0 % Non diabetic: < 6.0 % Goal: < 7.0 %Additional Action Suggested: > 8.0 %Note: Hemoglobin A1c results are invalid for patients with abnormal amounts of HbF. Blood transfusions may impact the HbA1c concentration in the patient sample. Estimated Average Glucose 131 mg/dL [facility] Comment:eAG = Estimated ave rage glucose which is %A1C expressed asaverage glucose, using the formula of the B1U-XhgxncfWawgxtp Glucose study (ADAG), Diabetes Care, Vol.31,#8,Oct. 2007 05/25/2024 6:30 AM EDT 05/25/2024 6:30 AM EDT us Generic External Data Provider LAB BLOOD ORDERAB LES Final Result Performing Organization Address [facility] Co de Phone Number [facility] [address] [place] [phone] * Ferritin (05/25/2024 6:30 AM EDT) Ferritin 70 20 - 250 ng/mL [facility] 05/25/2024 6:30 AM EDT 05/25/2024 6:30 AM EDT Generic External Data Provider LAB BLOOD ORDERAB LES Final Result Performing Organization Address City/[facility]/ZIP Co de Phone Number [facility] [address] [place] [phone] * (ABNORMAL) Lipid Panel, Standard (05/25/2024 6:30 AM EDT) Only the most recent of2 resultswithin the time period is included. Triglycerides 120 <150 mg/dL [facility] Comment:Desirable Triglyceri de: less than 150 mg/dLBorderline High Triglyceride 150-199 mg/dLHigh Triglyceride: 200-499 mg/dLVery High Triglyceride: greater than or equal to 5OO mg/dL Cholesterol 139 <200 mg/dL [facility] Comment:Desirable Cholestero l: less than 200 mg/dLBorderline High Cholesterol: 200-239 mg/dLHigh Cholesterol: greater than 239 mg/dL LDL Cholesterol Calculated 80 <100 mg/dL [facility] Comment:Desirable LDL: less than 100 mg/dLNear Optimal/Above Optimal LDL: 110- 129 mg/dLBorderline High LDL: 130-159 mg/dLHigh LDL: 160-189 mg/dLVery High LDL: greater than or equal to 190 mg/dL HDL Cholesterol 35(L) >40 mg/dL [facility] Comment:Desirable HDL: great er than 40 mg/dL Note: This HDL assay may give artificially low results in patients with liver disease. 05/25/2024 6:30 AM EDT 05/25/2024 6:30 AM EDT us Generic External Data Provider LAB BLOOD ORDERAB LES Final Result Performing Organization Address City/[facility]/ZIP Co de Phone Number [facility] [address] [place] [phone] * (ABNORMAL) Comprehensive Metabolic Panel (05/25/2024 6:30 AM EDT) Sodium 141 135 - 145 mmol/L [facility] Potassium 4.7 3.3 - 5.1 mmol/L [facility] Chloride 111(H) 96 - 108 mmol/L [facility] Carbon Dioxide 23 22 - 29 mmol/L [facility] Anion Gap 12 12 - 20 [facility] Urea Nitrogen (BUN) 26(H) 9 - 16 mg/dL [facility] Creatinine, Serum 1.31 0.5 - 1.4 mg/dL [facility] Estimated Glomerular Filt Rate 59 [facility] Comment:Chronic Kidney Disea se: Estimated GFR < 60 mL/min/[id number] Kidney Disease: Estimated GFR < 15 mL/min/1.73m2 Glucose 123(H) 60 - 115 mg/dL [facility] Calcium 9.2 8.4 - 10.2 mg/dL [facility] Bilirubin, Total 0.3 0.0 - 1.0 mg/dL [facility] Aspartate Amino Transferase 29 5 - 37 U/L [facility] Alanine Aminotransferase 29 0 - 40 U/L [facility] Total Protein 7.2 6.5 - 8.0 g/dL [facility] Albumin Level 3.6 3.5 - 5.0 g/dL [facility] Alkaline Phosphatase 66 39 - 117 U/L [facility] 05/25/2024 6:30 AM EDT 05/25/2024 6:30 AM EDT us Generic External Data Provider LAB BLOOD ORDERAB LES Final Result [facility] [address] [place] [phone] * POCT Glucose (05/18/2024 9:21 AM EDT) Only the most recent of2 resultswithin the time period is included. Glucose Blood, POC 124 60 - 200 mg/dL QC Media Lot # [id number] Lot# Expiration Date [id number] Blood Capillary blood specimen / Unknown 05/18/2024 9:21 AM EDT us Adriane Schultz MD POINT OF CARE TEST ENTER/EDIT OR DERABLES Final Result * (ABNORMAL) Glucose, Whole Blood (04/17/2024 8:10 AM EST) [facility] Glucose, Whole Blood 119(H) 60 - 115 mg/dL [facility] Comment:METER #: [id number] Testing performed in the Endocrinology Department [address], [facility]. 04/17/2024 8:10 AM EST 04/17/2024 8:13 AM EST Generic External Data Provider LAB BLOOD ORDERAB LES Final Result Performing Organization Address City/State/[facility] Co de Phone Number [facility] [address] [place] [phone] * POCT Rapid Covid-19 BinaxNOW (04/16/2024 3:14 PM EST) [facility] Rapid COVID Ag Negative QC Media Lot # [id number] Lot# Expiration Date Swab 04/16/2024 3:14 PM EST Anson Stapleton MD POINT OF CARE TEST ENTER/EDIT ORDERABLES Final Result * POCT Rapid Influenza B OSOM (04/16/2024 3:13 PM EST) [facility] Rapid Influenza B Ag Negative Negative, Indeterminate QC Media Lot # [id number] Lot# Expiration Date Swab 04/16/2024 3:13 PM EST Anson Stapleton MD POINT OF CARE TEST ENTER/EDIT ORDERABLES Final Result * POCT Rapid Influenza A OSOM (04/16/2024 3:13 PM EST) [facility] Rapid Influenza A Ag Negative Negative, Indeterminate QC Media Lot # [id number] Lot# Expiration Date Swab Nasopharyngeal structure / Unknown 04/16/2024 3:13 PM EST us Anson Stapleton MD POINT OF CARE TEST ENTER/EDIT ORDERABLES Final Result * (ABNORMAL) Basic Metabolic Panel (04/15/2024 8:29 AM EST) Sodium 139 135 - 145 mmol/L [facility] [...] Kidney Disea se: Estimated GFR < 60 mL/min/1.19o1Vdzytg Kidney Disease: Estimated GFR < 15 mL/min/1.73m2 Glucose 117(H) 60 - 115 mg/dL [facility] Calcium 9.1 8.4 - 10.2 mg/dL [facility] 04/15/2024 8:29 AM EST 04/15/2024 8:29 AM EST us Generic External Data Provider LAB BLOOD ORDERAB LES Final Result Performing Organization Address City/State/[facility] Co de Phone Number [facility] [address] [place] [phone] * (ABNORMAL) Albumin, Random Urine W/Creatinine (04/15/2024 8:26 AM EST) Creatinine, Urine 142.30 mg/dL [facility] Microalbumin Urine >2,000.0 mg/L [facility] Microalbum Creatinine Ratio Ur 1,405.4(H ) <30 ug/mg cr [facility] Comment:Albumin/Creatinine R atio Reference Ranges: Normal: < 30 ug/mg creatinine Microalbuminuria: 30 - 300 ug/mg creatinineClinical Albuminuria: > 300 ug/mg creatinine 04/15/2024 8:26 AM EST 04/15/2024 9:32 AM EST us Generic External Data Provider LAB URINE ORDERAB LES Final Result Performing Organization Address [facility] Co de Phone Number [facility] [address] [place] [phone] * Hepatitis C Ab (11/09/2022 9:00 AM EDT) Hepatitis C Antibody Nonreactive Nonreactive [facility] Comment:Antibodies to HCV no t detected; does not exclude early acuteHCV infection. Blood 11/09/2022 9:00 AM EDT 11/09/2022 2:35 PM EDT Martha Joyner MD LAB BLOOD ORDERABLES Final Re sult Performing Organization Address City/[facility] Co de Phone Number [facility] [address] [place] [phone] * HIV 1/2 ANTIGEN/ANTIBODY,FOURTH GENERATION W/RFL (05/26/2021 9:29 AM EDT) HIV-1/2 ANTIGEN AND ANTIBODIES, 4TH GENERATION W/ REFLEX NON-REACT TABITHA NON-REACT TABITHA [facility] Comment: HIV-1 antigen and HIV-1/HIV-2 [...] ? For additional information please refer to http://education.[employer]/faq/TGV647 (This link is being provided for informational/ educational purposes only.) ? The performance of this assay has not been clinically validated in patients less than 2 years old. ?? 05/26/2021 9:29 AM EDT us Martha Joyner MD LAB BLOOD ORDERABLES Final Re sult [facility] [address] [place] [address], from Last 3 Months or Most Recently Relevant to Health Maintenance Insurance [facility] DENTAL - HSN PARTIAL (MEDICAID) Care Teams Program Scheduler Relationship Specialty Start Date End Date Martha Joyner MD [address] [place] [phone] PCP - General Family Medicine 02/22/21 [facility] Nurse Practitioner Endocrinology 01/08/24
--- OUTSIDE RECORDS SUMMARY | 2024-07-03 14:49 | XMS_ITS | Encounter Summary ---
Author Organization [employer] Address [address] [place] [address] Care Team Providers Care Gift Wrapper Name Role Phone Martha Joyner MD Primary Care Provider [phone] Reason for Visit * Reason Onset Date Comments Nurse Triage 11/20/2023 Encounter Details Date Type Department Care Team ([facility] st Contact Info) Description 11/20/2023 Telephone [facility] [address] [place] [address] Martha Joyner MD [address] [place] [address] Nurse Triage Social History Tobacco Use Types [...] didn't answer. Left voice message to call [facility] triage line at [phone]. * Telephone Encounter - Rangel Razo [...] [facility] [address] [place] [address] Harvinder Newberry documented as of this encounter Visit Diagnoses Not on filedocumented in this encounter Additional Health Concerns Assessment Noted Time PHQ-9 Depression Total Score: 19 024 3:19 PM EDT documented as of this encounter Care Teams Gift Wrapper Relationship Specialty Start Date End Date Martha Joyner MD [address] [place] [address] PCP - General Family Medicine 02/22/21 [facility] Nurse Practitioner Endocrinology 01/08/24 documented as of this encounter
--- OUTSIDE RECORDS SUMMARY | 2024-07-03 14:49 | XMS_ITS | Clinical Summary ---
Author Organization [facility], Address [address] [place] [address] [place] [address] Phone Care Team Providers Care Sow Farm Manager Name Role Phone Martha Joyner MD Primary Care Provider [phone] Allergies Active Allergy Reactions Criticality Noted Date [...] UNTIL FINISHED 05/08/19 23 Active TechLite Pen Mohawk 31G X 5 MM [facility] USE DAILY WITH INSULIN 04/13/19 23 Active Mounjaro 2.5 MG/0.5ML solution pen-injector Inject 12.5 mg under the skin per week 05/22/19 23 Active carvedilol (COREG) 12.5 MG tablet TAKE ONE TABLET IN THE MORNING AND EVENING WITH FOOD 11/08/19 23 Active Continuous Blood Gluc Sensor (FreeStyle Jeannette 3 Sensor) [facility] USE DIRECTED TO TEST BLOOD SUGAR CHANGE [...] Visit [facility] [address] [place] [address] Jose Guadalupe Coleman MD Stage 3a chronic kidney disease (HCC) (Primary Dx); Hypertension; Diabetes mellitus without mention of complication, type II or unspecified type, uncontrolled (HCC); Persistent proteinuria 04/30/2024 Orders Only [facility] [address] [facility] [place] [phone] Jose Guadalupe Coleman MD 04/28/2024 Office Communication [facility] [address] [place] [address] Tatianna Lao from Last 3 Months Social [...] Visit [facility], [address] [place] [address] Jose Guadalupe Coleman MD [address] [place] [address] Health Maintenance Due Date Last [...] Urine 0-5 0 - 5 /hpf [facility] RBC, Urine 0-2 0 - 2 /hpf [facility] Squamous Epithelial, Urine None seen 0 - 10 /hpf [facility] Casts None seen None seen /lpf [facility] Bacteria, Urine None seen None seen/Few [facility] 04/30/2024 7:23 AM EST 04/30/2024 Jose Guadalupe Coleman MD LAB MICROBIOLOGY - GENERAL ORDERABLES Final Result Performing Organization Address City/[facility]/ZIP Co de Phone Number [facility] [address] [place] [address] * (ABNORMAL) Protein, Total, Random Urine w/Creatinine (Protein/Creat Ratio) (04/30/2024 7:23 AM EST) Pathologist [facility] Creatinine, Ur 169.1 Not Estab. mg/dL [facility] Protein, Ur 454.4 Not Estab. mg/dL [facility] Comment: Results confirmed on dilution. Urine Protein/Creati nine Ratio 2,687(H) 0 - 200 mg/g creat [facility] 04/30/2024 7:23 AM EST 04/30/2024 Jose Guadalupe Coleman MD LAB URINE ORDERABLES Final Result Performing Organization Address City/[facility]/ZIP Co de Phone Number [facility] [address] [place] [address] * (ABNORMAL) Urinalysis with microscopic (04/30/2024 7:23 AM EST) Specific [place], Urine 1.029 1.005 - 1.030 [facility] pH Urine 6.0 5.0 - 7.5 [facility] [phone] Color, Urine Yellow Yellow [facility] Appearance Urine Clear Clear [facility] [phone] WBC Esterase Urine Negative Negative [facility] Protein, Ur 3+(A) Negative/Tra ce [facility] Glucose, Ur 3+(A) Negative [facility] Ketones, Urine Negative Negative [facility] Blood Urine Negative Negative [facility] Bilirubin Urine Negative Negative [facility] Urobilinogen Urine 0.2 0.2 - 1.0 mg/dL [facility] Nitrite, Urine Negative Negative [facility] Microscopic Examination See below: [facility] Comment:Microscopic was gloria cated and was performed. 04/30/2024 7:23 AM EST 04/30/2024 us Jose Guadalupe Coleman MD LAB URINE ORDERABLES Final Result [facility] [address] [place] [address] * (ABNORMAL) Renal Function Panel (04/30/2024 7:23 AM EST) Glucose 125(H) 70 - 99 mg/dL [facility] BUN 21 6 - 24 mg/dL [facility] Creatinine 1.49(H) 0.76 - 1.27 mg/dL [facility] eGFR CKD-EPI CR 2020 59(L) >59 mL/min/1.7 3 [facility] BUN/Creatinine Ratio 14 9 - 20 [facility] Sodium 139 134 - 144 mmol/L [facility] Potassium 4.4 3.5 - 5.2 mmol/L [facility] Chloride 104 96 - 106 mmol/L [facility] Bicarbonate (CO2) 20 20 - 29 mmol/L [facility] Calcium 9.2 8.7 - 10.2 mg/dL [facility] Albumin 3.8(L) 4.1 - 5.1 g/dL [facility] Phosphorus 3.6 2.8 - 4.1 mg/dL [facility] 04/30/2024 7:23 AM EST 04/30/2024 Jose Guadalupe Coleman MD LAB BLOOD ORDERABLES Final Result [facility] [address] [place] [address] from Last 3 Months Insurance [facility] Plan ([id number]) Care Teams Sow Farm Manager Relationship Specialty Start Date End Date Martha Joyner MD PCP - General Family Medicine 06/29/21
--- OUTSIDE RECORDS SUMMARY | 2024-07-03 14:50 | XMS_ITS | Encounter Summary ---
Author Organization [employer] Address [address] [place] [address] Care Team Providers Care Natural Resource Manager Name Role Phone Martha Joyner MD Primary Care Provider [phone] Reason for Visit * Reason Onset Date Comments Med Refill 03/16/2024 Encounter Details Date Type Department Care Team ([facility] st Contact Info) Description 03/16/2024 Telephone [facility] [address] [place] [address] Martha Joyner MD [address] [place] [address] Med Refill Social History Tobacco Use Types [...] 6.25 MG tablet To be sent to: [facility] documented in this encounter Plan of Treatment Upcoming Encounters Date Type Department Care Team (Late st Contact Info) Description 07/17/2024 8:00 AM EDT Office Visit [facility] [address] [place] [address] Harvinder Newberry documented as of this encounter Visit Diagnoses Not on filedocumented in this encounter Additional Health Concerns Assessment Noted Time PHQ-9 Depression Total Score: 19 024 3:19 PM EDT documented as of this encounter Care Teams Natural Resource Manager Relationship Specialty Start Date End Date Martha Joyner MD [address] [place] [phone] PCP - General Family Medicine 02/22/21 [facility] Nurse Practitioner Endocrinology 01/08/24 documented as of this encounter
--- OUTSIDE RECORDS SUMMARY | 2024-07-03 14:50 | XMS_ITS | Encounter Summary ---
Author Organization [facility] Address [address] [address] Phone Care Team Providers Care Door Tender Name Role Phone Martha Joyner MD Primary Care Provider [phone] Encounter Details Date Type Department Care Team (Late st Contact Info) Description 06/29/2021 Documentation Only [facility] [address] [place] [address] Martha Joyner MD [address] [place] [phone] Social History Tobacco Use Types Packs/Day Years [...] Visit [facility] [address] [place] [address] Jose Guadalupe Coleman MD [address] [place] [address] [place] [phone] documented as of this encounter Visit Diagnoses Not on filedocumented in this encounter Care Teams Door Tender Relationship Specialty Start Date End Date Martha Joyner MD PCP - General Family Medicine 06/29/21 documented as of this encounter
--- OUTSIDE RECORDS SUMMARY | 2024-07-03 14:50 | XMS_ITS | Encounter Summary ---
Author Organization [facility] Address [address] 7t [place] [address] Care Team Providers Care It Auditor Name Role Phone Martha Joyner MD Primary Care Provider Encounter Details Date Type Department Care Team (Late Contact Info) Description 02/15/2022 Orders Only [facility] MED & PEDS [address] [place], [place] [phone] Martha Joyner MD [address] [place] [address] Type 2 diabetes mellitus with hyperglycemia, without long-term current use of insulin ([facility]) (Primary Dx) Social History Tobacco Use [...] Description 07/17/2024 8:00 AM EDT Office Visit [facility] ADULT DENTAL [address] [place] [address] Harvinder Newberry documented as of this encounter Procedures Procedure Name Priority Date/Time Associated Diagnosis Comments ALBUMIN, RANDOM URINE W/CREATININE Routine 11/09/2022 9:05 AM EDT Type 2 diabetes mellitus with hyperglycemia, without long-term current use of insulin (CMS/HCC) COMPREHENSIVE METABOLIC PANEL, FASTING Routine 11/09/2022 9:00 AM EDT Type 2 diabetes mellitus with hyperglycemia, without long-term current use of insulin (CMS/[facility]) SED RATE BY MODIFIED WESTERGREN Routine 11/09/2022 9:00 AM EDT Type 2 diabetes mellitus with hyperglycemia, without long-term current use of insulin ([facility]) GLUCOSE, WHOLE BLOOD Routine 07/27/2022 2:52 PM EDT Type 2 diabetes mellitus with hyperglycemia, without long-term current use of insulin (CMS/[facility]) ALBUMIN, RANDOM URINE W/CREATININE Routine 05/18/2022 11:59 AM EDT Type 2 diabetes mellitus with hyperglycemia, without long-term current use of insulin (CMS/[facility]) LIPID PANEL, STANDARD Routine 05/18/2022 11:47 AM EDT Type 2 diabetes mellitus with hyperglycemia, without long-term current use of insulin (CMS/[facility]) GLUCOSE, WHOLE BLOOD Routine 05/18/2022 10:23 AM EDT Type 2 diabetes mellitus with hyperglycemia, without long-term current use of insulin (CMS/HCC) documented in this encounter Results * (ABNORMAL) Albumin, Random Urine W/Creatinine (11/09/2022 9:05 AM EDT) Creatinine, Urine 97.12 mg/dL [facility] Microalbumin Urine 900.0 mg/L [facility] Microalbum Creatinine Ratio Ur 926.6(H) <30 ug/mg cr [facility] Comment:Albumin/Creatinine R atio Reference Ranges: Normal: < 30 ug/mg creatinine Microalbuminuria: 30 - 300 ug/mg creatinineClinical Albuminuria: > 300 ug/mg creatinine 11/09/2022 9:05 AM EDT 11/09/2022 2:30 PM EDT Martha Joyner MD LAB URINE ORDERABLES Final Re sult Performing Organization Address [facility] de Phone Number [facility] [address] [place] [phone] * (ABNORMAL) Sed Rate by Modified Westergren (11/09/2022 9:00 AM EDT) Erythrocyte Sedimentation Rate 34(H) 0 - 15 MM/HR [facility] Comment:Patients with polycy themia and many hemoglobin abnormalitiesmay have depressed sed rates whereas patients with anemiamay have elevated sed rates. 11/09/2022 9:00 AM EDT 11/09/2022 2:45 PM EDT Martha Joyner MD LAB BLOOD ORDERABLES Final Re sult Performing Organization Address [facility] Phone Number [facility] [address] [place] [phone] * (ABNORMAL) Comprehensive Metabolic Panel, Fasting (11/09/2022 9:00 AM EDT) Sodium 139 135 - 145 mmol/L [facility] Potassium 4.5 3.3 - 5.1 mmol/L [facility] Chloride 106 96 - 108 mmol/L [facility] Carbon Dioxide 25 22 - 29 mmol/L [facility] Anion Gap 13 12 - 20 [facility] Urea Nitrogen (BUN) 26(H) 9 - 16 mg/dL [facility] Creatinine, Serum 1.35 0.5 - 1.4 mg/dL [facility] Estimated Glomerular Filt Rate 58 [facility] Comment:NOTE: For -Am erican individuals, multiply the result by 1.210.Chronic Kidney Disease: Estimated GFR < 60 mL/min/1.74r0Ejpdup Kidney Disease: Estimated GFR < 15 mL/min/1.73m2 Glucose Fasting 109(H) 60 - 99 mg/dL [facility] Comment:A fasting glucose fr om 100-125 mg/dl is considered impaired(pre-diabetes). Calcium 10.1 8.4 - 10.2 mg/dL [facility] Bilirubin, Total 0.4 0.0 - 1.0 mg/dL [facility] Aspartate Amino Transferase 30 5 - 37 U/L [facility] Alanine Aminotransferase 27 0 - 40 U/L [facility] Total Protein 7.5 6.5 - 8.0 g/dL [facility] Albumin Level 3.9 3.5 - 5.0 g/dL [facility] Alkaline Phosphatase 78 39 - 117 U/L [facility] 11/09/2022 9:00 AM EDT 11/09/2022 2:45 PM EDT Martha Joyner MD LAB BLOOD ORDERABLES Final Re sult Performing Organization Address [facility]/ZIP Co de Phone Number [facility] [address] [place] [phone] * (ABNORMAL) Glucose, Whole Blood (07/27/2022 2:52 PM EDT) Glucose, Whole Blood 183(H) 60 - 115 mg/dL [facility] Comment:METER #: [id number] 5Testing performed in the Endocrinology Department [address] , [address], [facility]. 07/27/2022 2:52 PM EDT 07/27/2022 2:56 PM EDT [facility] External Provider LAB BLO OD ORDERABLES Final Result Performing Organization Address [facility]/ZIP Co de Phone Number [facility] [address] [place] [address] [phone] * Albumin, Random Urine W/Creatinine (05/18/2022 11:59 AM EDT) Creatinine, Urine 72.74 mg/dL [facility] Microalbumin Urine 747.0 mg/L [facility] Microalbum Creatinine Ratio Ur 1,026.9 ug/mg cr [facility] Comment:Albumin/Creatinine R atio Reference Ranges: Normal: < 30 ug/mg creatinine Microalbuminuria: 30 - 300 ug/mg creatinineClinical Albuminuria: > 300 ug/mg creatinine 05/18/2022 11:5 9 AM EDT 05/18/2022 1:23 PM EDT us [facility] External Provider LAB URI NE ORDERABLES Final Result [facility] [address] [place] [phone] * Lipid Panel, Standard (05/18/2022 11:47 AM EDT) Triglycerides 243 mg/dL [facility] Comment:Desirable Triglyceri de: less than 150 mg/dLBorderline High Triglyceride 150-199 mg/dLHigh Triglyceride: 200-499 mg/dLVery High Triglyceride: greater than or equal to 5OO mg/dL Cholesterol 152 mg/dL [facility] Comment:Desirable Cholestero l: less than 200 mg/dLBorderline High Cholesterol: 200-239 mg/dLHigh Cholesterol: greater than 239 mg/dL LDL Cholesterol Calculated 70 mg/dl [facility] Comment:Desirable LDL: less than 100 mg/dLNear Optimal/Above Optimal LDL: 110- 129 mg/dLBorderline High LDL: 130-159 mg/dLHigh LDL: 160-189 mg/dLVery High LDL: greater than or equal to 190 mg/dL HDL Cholesterol 34 mg/dL [facility] Comment:Desirable HDL: great er than 40 mg/dL Note: This HDL assay may give artificially low results in patients with liver disease. 05/18/2022 11:4 7 AM EDT 05/18/2022 1:23 PM EDT [facility] External Provider LAB BLO OD ORDERABLES Final Result Performing Organization Address [facility] de Phone Number [facility] [address] [place] [address] [phone] * (ABNORMAL) Glucose, Whole Blood (05/18/2022 10:23 AM EDT) Glucose, Whole Blood 172(H) 60 - 115 mg/dL [facility] Comment:METER #: [id number] 5Testing performed in the Endocrinology Department [address] , [address], [facility]. 05/18/2022 10:2 3 AM EDT 05/18/2022 10:28 AM EDT [facility] External Provider LAB BLO OD ORDERABLES Final Result Performing Organization Address [facility] de Phone Number [facility] [address] [place] [phone] documented in this encounter Visit Diagnoses Diagnosis Type 2 diabetes mellitus with hyperglycemia, without long-term current use of insulin ([facility])- Primary documented in this encounter Additional Health Concerns Assessment Noted Time PHQ-9 Depression Total Score: 1 02/15/20 22 4:00 PM EST documented as of this encounter Care Teams It Auditor Relationship Specialty Start Date End Date Martha Joyner MD [address] [place] [phone] PCP - General Family Medicine 02/22/21 [facility] Nurse Practitioner Endocrinology 01/08/24 documented as of this encounter
--- OUTSIDE RECORDS SUMMARY | 2024-07-03 14:50 | XMS_ITS | Encounter Summary ---
Author Organization [employer] Address [address] [place] [address] Care Team Providers Care Motion Picture Equipment Machinist Name Role Phone Martha Joyner MD Primary Care Provider [phone] Reason for Visit * Reason Comments Med Refill Encounter Details Date Type Department Care Team ([facility] Contact Info) Description 07/02/2024 Refill [facility] MED & PEDS [address] [place], [place] [phone] Martha Joyner MD [address] [place] [address] Ear itch Social History Tobacco Use Types Packs/Day Years [...] [facility] [address] [place] [address] Harvinder Newberry documented as of this encounter Visit Diagnoses Diagnosis Ear itch documented in this encounter Additional Health Concerns Assessment Noted Time PHQ-9 Depression Total Score: 19 024 3:19 PM EDT documented as of this encounter Care Teams Motion Picture Equipment Machinist Relationship Specialty Start Date End Date Martha Joyner MD [address] [place] [address] PCP - General Family Medicine 02/22/21 [facility] Nurse Practitioner Endocrinology 01/08/24 documented as of this encounter
--- OUTSIDE RECORDS SUMMARY | 2024-07-03 14:50 | XMS_ITS | Encounter Summary ---
Author Organization [employer] Address [address] [facility] 7t [place] [address] Care Team Providers Care Singer And Unloader Name Role Phone Martha Joyner MD Primary Care Provider [phone] Reason for Visit * Reason Comments Med Refill Encounter Details Date Type Department Care Team ([facility] Contact Info) Description 06/07/2024 Refill [facility] MED & PEDS [address] [place], [place] [phone] Martha Joyner MD [address] [place] [address] Type 2 diabetes mellitus with hyperglycemia, without long-term current use of insulin ([facility]) Social History Tobacco Use Types [...] Description 07/17/2024 8:00 AM EDT Office Visit [facility] ADULT DENTAL [address] [place] [address] Harvinder Newberry documented as of this encounter Visit Diagnoses Diagnosis Type 2 diabetes mellitus with hyperglycemia, without long-term current use of insulin ([facility]) documented in this encounter Additional Health Concerns Assessment Noted Time PHQ-9 Depression Total Score: 19 024 3:19 PM EDT documented as of this encounter Care Teams Singer And Unloader Relationship Specialty Start Date End Date Martha Joyner MD [address] [place] [address] PCP - General Family Medicine 02/22/21 [facility] Nurse Practitioner Endocrinology 01/08/24 documented as of this encounter
--- OUTSIDE RECORDS SUMMARY | 2024-07-03 14:50 | XMS_ITS | Encounter Summary ---
Author Organization [facility] Address [address] [address] Phone Care Team Providers Care Real Estate Specialist Name Role Phone Martha Joyner MD Primary Care Provider [phone] Encounter Details Date Type Department Care Team (Late st Contact Info) Description 06/29/2021 Documentation Only [facility] [address] [place] [address] Martha Joyner MD [address] [place] [address] [phone] Social History Tobacco Use Types Packs/Day Years [...] Visit [facility] [address] [place] [address] Jose Guadalupe Coleman MD [address] [place] [address] [place] [phone] documented as of this encounter Visit Diagnoses Not on filedocumented in this encounter Care Teams Real Estate Specialist Relationship Specialty Start Date End Date Martha Joyner MD PCP - General Family Medicine 06/29/21 documented as of this encounter
--- OUTSIDE RECORDS SUMMARY | 2024-07-03 14:50 | XMS_ITS | Encounter Summary ---
Author Organization [employer] Address [address] 7[address] [place] [address] Care Team Providers Care Athletic Equipment Custodian Name Role Phone Martha Joyner MD Primary Care Provider [phone] Encounter Details Date Type Department Care Team ([facility] st Contact Info) Description 05/01/2023 Telephone [facility] MED & PEDS [address] [place], [place] [phone] Martha Joyner MD [address] [place], [place] [phone] Social History Tobacco Use Types Packs/Day Years [...] [facility] [address] [place] [address] Harvinder Newberry documented as of this encounter Visit Diagnoses Not on filedocumented in this encounter Additional Health Concerns Assessment Noted Time PHQ-9 Depression Total Score: 1 02/15/20 22 4:00 PM EST documented as of this encounter Care Teams Athletic Equipment Custodian Relationship Specialty Start Date End Date Martha Joyner MD [address] [place] [phone] PCP - General Family Medicine 02/22/21 [facility] Nurse Practitioner Endocrinology 01/08/24 documented as of this encounter
--- OUTSIDE RECORDS SUMMARY | 2024-07-03 14:50 | XMS_ITS | Encounter Summary ---
Author Organization [employer] Address [address] [facility] [address] 7[address] [place] [address] Care Team Providers Care Acetylene Burner Name Role Phone Martha Joyner MD Primary Care Provider [phone] Reason for Visit * Reason Comments Med Refill Encounter Details Date Type Department Care Team ([facility] Contact Info) Description 07/21/2023 Refill [facility] MED & PEDS [address] [place], [place] [phone] Martha Joyner MD [address] [place] [address] Type 2 diabetes mellitus with hyperglycemia, without long-term current use of insulin ([facility]) Social History Tobacco Use Types Packs/Day [...] 07/17/2024 8:00 AM EDT Office Visit [facility] ADULT [facility] [address] [place] [address] Harvinder Newberry documented as of this encounter Visit Diagnoses Diagnosis Type 2 diabetes mellitus with hyperglycemia, without long-term current use of insulin ([facility]) documented in this encounter Additional Health Concerns Assessment Noted Time PHQ-9 Depression Total Score: 17 024 5:09 PM EDT documented as of this encounter Care Teams Acetylene Burner Relationship Specialty Start Date End Date Martha Joyner MD [address] [place] [address] PCP - General Family Medicine 02/22/21 [facility] Nurse Practitioner Endocrinology 01/08/24 documented as of this encounter
--- OUTSIDE RECORDS SUMMARY | 2024-07-03 14:50 | XMS_ITS | Encounter Summary ---
Author Organization [employer] [facility] Address [address] [place] [address] 7t [place] [address] Care Team Providers Care Supervisor Core Shop Name Role Phone Martha Joynre MD Primary Care Provider [phone] Reason for Visit * Reason Comments Med Refill Encounter Details Date Type Department Care Team (Late st Contact Info) Description 10/15/2022 Refill [facility] MED & PEDS [address] [place] [address] Martha Joyner MD [address] [place] [address] Type 2 diabetes mellitus with hyperglycemia, without long-term current use of insulin ([facility]) Social History Tobacco Use Types Packs/Day [...] 8:00 AM EDT Office Visit [facility] ADULT DENTAL [address] [place] [address] Harvinder Deutsch documented as of this encounter Visit Diagnoses Diagnosis Type 2 diabetes mellitus with hyperglycemia, without long-term current use of insulin ([facility]) documented in this encounter Additional Health Concerns Assessment Noted Time PHQ-9 Depression Total Score: 1 02/15/20 22 4:00 PM EST documented as of this encounter Care Teams Supervisor Core Shop Relationship Specialty Start Date End Date Martha Joyner MD [address] [place] [address] PCP - General Family Medicine 02/22/21 [facility] Nurse Practitioner Endocrinology 01/08/24 documented as of this encounter
--- OUTSIDE RECORDS SUMMARY | 2024-07-03 14:50 | XMS_ITS | Encounter Summary ---
Author Organization [employer] Address [address] [place] [address] Care Team Providers Care Rotary Dryer Operator Name Role Phone Martha Joyner MD Primary Care Provider [phone] Reason for Visit * Reason Comments Med Refill Encounter Details Date Type Department Care Team ([facility] Contact Info) Description 05/30/2023 Refill [facility] MED & PEDS [address] [place], [place] [phone] Martha Joyner MD [address] [place] [address] Primary hypertension Social History Tobacco Use Types [...] Description 07/17/2024 8:00 AM EDT Office Visit [facility] CHC ADULT DENTAL [address] [place] [address] Harvinder Newberry documented as of this encounter Visit Diagnoses Diagnosis Primary hypertension Unspecified essential hypertension documented in this encounter Additional Health Concerns Assessment Noted Time PHQ-9 Depression Total Score: 1 02/15/20 22 4:00 PM EST documented as of this encounter Care Teams Rotary Dryer Operator Relationship Specialty Start Date End Date Martha Joyner MD [address] [place] [address] PCP - General Family Medicine 02/22/21 [facility] Nurse Practitioner Endocrinology 01/08/24 documented as of this encounter
--- OUTSIDE RECORDS SUMMARY | 2024-07-03 14:50 | XMS_ITS | Encounter Summary ---
Author Organization [employer] Address [address] [place] [address] Care Team Providers Care Creative Services Manager Name Role Phone Martha Joyner MD Primary Care Provider [phone] Encounter Details Date Type Department Care Team (Late st Contact Info) Description 03/13/2023 Telephone [facility] MEDICINE [address] [place] [address] Martha Joyner MD [address] [place], [place] [phone] Social History Tobacco Use Types Packs/Day Years [...] indicated. Report faxed at this time to [phone] documented in this encounter Plan of Treatment Upcoming Encounters Date Type Department Care Team (Late st Contact Info) Description 07/17/2024 8:00 AM EDT Office Visit [facility] ADULT DENTAL [address] [place] [address] Harvinder Newberry documented as of this encounter Visit Diagnoses Not on filedocumented in this encounter Additional Health Concerns Assessment Noted Time PHQ-9 Depression Total Score: 1 02/15/20 22 4:00 PM EST documented as of this encounter Care Teams Creative Services Manager Relationship Specialty Start Date End Date Martha Joyner MD [address] [place] [phone] PCP - General Family Medicine 02/22/21 [facility] Nurse Practitioner Endocrinology 01/08/24 documented as of this encounter
--- NOTE | 2024-07-06 10:06 | P.CONAN_ITS ---
HPI - Anesthesia Eval Consult details Narrative: 44yo M for Upper Endoscopy Anesthesia Pre-Procedure Meds Is the patient on any of the following meds?: GLP1/DPP4 and SGLT2 Inhib PMFSH Active Problems Active Problems: All Active Problems CKD (chronic kidney disease) stage 3, GFR 30-59 ml/min (Acute) Hypogonadism in male (Acute) Microalbuminuria due to type 2 diabetes mellitus (Acute) Low libido (Acute) Varicocele (Acute) Morbid obesity (Acute) HTN (hypertension) (Acute) Type 2 diabetes mellitus (Acute) Past Medical History Medical History (Updated 07/02/24 @ 16:01 by Sally Ng, RN) Chronic kidney disease Back pain Numbness and tingling in both hands History of palpitations Morbid obesity HTN (hypertension) Type 2 diabetes mellitus Family History Family History (Updated 04/30/24 @ 08:01 by WILLIAM Yeboah) Mother High blood pressure Father Diabetes Kidney problem High blood pressure Maternal Aunt Cancer Maternal Aunt Cancer Surgical History Surgical History No pertinent past surgical history Social History Social History Are you a primary progressive care manager to a significant other at home: No Do you presently have visiting nurse or other home services: No Alcohol intake: never Patient Tobacco Use Status: Never used Tobacco Meds Allergies Allergy/AdvReac Type Severity Reaction Status Date / Time No Known Allergies Allergy Verified 07/02/24 16:05 Home Medications ?Medication ?Instructions ?Recorded ?Confirmed ?Last Taken ?Type blood-glucose meter (FreeStyle 05/18/22 05/08/24 Unknown History [place] Lite kit) lancets 33 gauge (TRUEplus Lancets) #100 ea 05/18/22 05/08/24 Unknown History valsartan 320 mg tablet 320 mg PO DAILY 05/18/22 07/02/24 Unknown History allopurinol 300 mg tablet 300 mg PO BEDTIME 07/27/22 07/02/24 Unknown History cholecalciferol (vitamin D3) 50 50 mcg PO DAILY 07/27/22 07/02/24 Unknown History mcg (2,000 unit) capsule cyanocobalamin (vitamin B-12) 3,000 mcg PO DAILY 07/27/22 07/02/24 Unknown History 3,000 mcg capsule thiamine HCl (vitamin B1) 500 mg 500 mg PO DAILY 07/27/22 07/02/24 Unknown History tablet dapagliflozin propanediol 10 mg 10 mg PO DAILY 04/17/24 07/02/24 Unknown History tablet (Farxiga) ashwagandha extract 62.5 mg 300 mg PO 04/30/24 05/08/24 Unknown History chewable tablet carvedilol 6.25 mg tablet 6.25 mg PO BID 04/30/24 07/02/24 Unknown History clomiphene citrate 50 mg tablet 50 mg PO 3XW 07/02/24 07/02/24 Unknown History Exam Height,Weight and Vital Signs: Height 5 ft 10.87 in Weight 139.253 kg Assessment and Plan Assessment Anesthesia Assessment: Chart Reviewed
[2024-07-07 09:29] VITALS: BMI 42.2
--- NOTE | 2024-07-07 09:44 | PC.NURSE ---
Patient drank coffee with cream and sugar at 0700 this morning. Anesthesia and surgeon updated and patient is cancelled for today. Patient will call office to reschedule and left with all belongings.
== END ==
LOC: HO.SSS 08:50
PROVIDERS: PCP Family Medicine; Visit Provider Surgery
DX: E66.01 Morbid (severe) obesity due to excess calories (principal); Z53.8 Procedure and treatment not carried out for other reasons; I12.9 Hypertensive chronic kidney disease with stage 1 through stage 4 chronic kidney disease, or unspecified chronic kidney disease; E11.22 Type 2 diabetes mellitus with diabetic chronic kidney disease; N18.30 Chronic kidney disease, stage 3 unspecified; Z79.84 Long term (current) use of oral hypoglycemic drugs

== ENCOUNTER 2024-07-09 08:10 | Outpatient (AMB) | payer OTHER, SELFPAY ==
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
--- OUTSIDE RECORDS SUMMARY | 2024-07-09 08:26 | XMS_ITS | Clinical Summary ---
Author Organization [employer] Address [address] [place] [address] Care Team Providers Care Spiritual Counselor Name Role Phone Martha Joyner MD Primary Care Provider [phone] Allergies No known active allergies Medications * [...] tablet 11 025 2025 Active Continuous Glucose Waste Cotton Cleaner (FreeStyle Jeannette 3 [place]) deviceIndicatio ns:Type 2 diabetes mellitus with hyperglycemia, without long-term current use of insulin ([facility]) 1 each Once per day. Use as directed for CGM 1 each 025 Active Continuous Glucose Sensor (FreeStyle Jeannette 3 Plus Sensor) miscIndications :Type 2 diabetes mellitus with hyperglycemia, without long-term current use of insulin ([facility]) 1 each every 15 days. Apply 1 every 15 days as directed for CGM 2 each 025 Active clomiPHENE (Clomid) 50 MG tablet TAKE 1 TABLET BY MOUTH DAILY ON ON SATURDAY, SATURDAY AND Saturday 025 Active Mounjaro 12.5 MG/0.5ML solution auto-injector INJECT [...] PTSD (post-traumatic stress disorder) 09/12/2023 Fractured dental mandaeism with loss of materi al 07/31/2023 JERRY [...] Glu = 109 Patient is managed by [facility]. His DM2 is trending in the [...] levels. Continue taking mounjaro as perscribed by nursing support worker. Will montior and lower metformin as [...] elevated a1c of 10.7% and glucoe of [facility]. No measuring his glucose at [...] Type Department Care Team Description 07/02/[address] [facility] [address] [place] [address] Martha Joyner MD Ear itch 06/07/[address] [facility] [address] [place] [address] Martha Joyner MD Type 2 diabetes mellitus with hyperglycemia, without long-term current use of insulin ([facility]) 05/26/2024 Travel 05/25/2024 Orders Only GENERIC EXTERNAL DATA DEPARTMENT Provider, Generic External Data 05/18/2024 8:30 AM EDT Office Visit [facility] [address] [place] [address] Adriane Schultz MD Type 2 diabetes mellitus with hyperglycemia, without long-term current use of insulin ([facility]) (Primary Dx); Hypoglycemic episode in patient with diabetes mellitus ([facility]); Primary hypertension; Plantar fasciitis 05/18/[address] [facility] [address] [place] [address] Martha Joyner MD Change PCP 05/18/2024 Travel 05/06/[address] [facility] [address] [place] [address] Martha Joyner MD 05/04/2024 Telephone [facility] [address] [place] [phone] Martha Joyner MD Nurse Triage 04/22/2024 8:00 AM EST Office [facility] [address] [place] [address] Roxi Reagan DMD 04/17/2024 Orders Only GENERIC EXTERNAL DATA DEPARTMENT Provider, Generic External Data 04/16/2024 2:30 PM EST Office [facility] [address] [place] [address] Anson De Leon MD Stage 3b chronic kidney disease (CMS/HCC) (Primary Dx); Type 2 diabetes mellitus with hyperglycemia, without long-term current use of insulin (CMS/HCC); Congestion of nasal sinus; Albuminuria 04/16/2024 Travel 04/16/2024 Telephone [facility] [address] [place] [address] Adeola Velásquez RN 04/15/2024 Orders Only [facility] [address] [place] [address] Harvinder Newberry Health Maintenance Due Date Last [...] COVID-19 Vaccine ( season) 2023 02/21/2022, 08/03/2021 Dental Prophylaxis 07/20/2024 [...] [facility] 2 O AM[place] - 1 SURF, PRIMARY [...] [facility] LIPID PANEL, STANDARD Routine 04/15/2024 8:29 AM [...] EDT Narrative 06/26/2024 8:05 AM EDT ? [facility] ?[address] ?[place] [address] ? Ultrasound Report ? Signed ? Patient: Edd Shaw ?MR#: M ?? [id number] ? : 1980 ?Acct:[id number] ? Age/Sex: 44 / M ?ADM Date: 06/24/24 ? Loc: HO.US ? Attending Dr: Obey Mendoza MD ? Ordering Physician: Obey Mendoza MD ?? Date of Service: 06/24/24 ?? Procedure(s): US abdomen comp w elastography ?? Accession Number(s): [id number] ? cc: Obey Mendoza MD; Martha Joyner [...] 0803 ? DD/ 08 ? TD/TT: 06/24/24 0902 ? [employer]er: ? Procedure Note Antonella Viramontes - 06/26/[address] [address] Ultrasound Report Signed Patient: Donal Shaw#: M [id number] : 1980Acct:[id number] Age/Sex: 44 / MADM Date: 06/24/24 Loc: HO.US Attending Dr: Obey Mendoza MD Ordering Physician: Obey Mendoza MD Date of Service: 06/24/24 Procedure(s): US abdomen comp w elastography Accession Number(s): [id number] cc: Obey Mendoza MD; Martha Joyner MD [...] 06/26/24 0803 DD/ 0812 TD/TT: 06/24/24 0902 [employer] Parts Assembler: [facility] External Provider IMG US PROCEDURES Edited Result - Final * XR Chest 2 Views (05/25/2024 1:52 PM EDT) Anatomical Region Laterality Modality Chest Radiographic Mary ging 05/25/2024 1:52 PM EDT Narrative 05/25/2024 1:54 PM EDT ? [facility] ?[address] ?[place] [address] ?XRay Report ? Signed ? Patient: Aaliyah Mendieta,Edd ?MR#: M ?? [id number] ? : 1980 ?Acct:[id number] ? Age/Sex: 43 / M ?ADM Date: 05/25/24 ? Loc: HO.XRAY ? Attending Dr: Obey Mendoza MD ? Ordering Physician: Obey Mendoza MD ?? Date of Service: 05/25/24 ?? Procedure(s): XR chest 2V ?? Accession Number(s): [id number] ? cc: Obey Mendoza MD; Martha Joyner [...] 1353 ? DD/ ? TD/TT: 05/25/242 ? [employer] As[employer]er: ? Procedure Note Ana M, Antonella - 05/25/[address] [address] XRay Report Signed Patient: Rigoberto ShawEtienne#: M [id number] : 1980Acct:[id number] Age/Sex: 43 / MADM Date: 05/25/24 Loc: TRACE Attending Dr: Obey Mendoza MD Ordering Physician: Obey Mendoza MD Date of Service: 05/25/24 Procedure(s): XR chest 2V Accession Number(s): [id number] cc: Obey Mendoza MD; Martha Joyner MD [...] 05/25/24 1353 DD/ 1352 TD/TT: 05/25/24 1352 [employer]er: [facility] External Provider IMG XR PROCEDURES Final Result * Vitamin D, 25-Hydroxy, Total, Immunoassay (05/25/2024 6:30 AM EDT) Vitamin D 25-OH Total 67.5 >30 ng/mL [facility] Comment: Health Based Reference Values*< 20 ??ng/mL ??Rurbztkcr33-01 ng/mL ??Insufficient> 30 ??ng/mL ??Sufficient*Chris MERINO. N [...] Final Result Performing Organization Address [facility] Co de Phone Number [facility] [address] [place] [phone] * (ABNORMAL) Vitamin B12 (Cobalamin) and Folate Panel, Serum (05/25/2024 6:30 AM EDT) Vitamin B12 1,547(H) 200 - 900 pg/mL [facility] Comment:NORMAL 200-900 PG/ML INDETERMINATE 160-199 PG/ML DEFICIENT < 160 PG/ML Folate 10.6 > or = 4.0 ng/mL [facility] Comment:Reference Values:> o r = 4.0 ng/mL< 4.0 ng/mL suggests folate deficiency Methotrexate, aminopterin and folinic acid(leucovorin) are chemotherapeutic agents whose molecularstructures are similar to folate; therefore, the Architectfolate assay cannot be used for patients using these drugs. 05/25/2024 6:30 AM EDT 05/25/2024 6:30 AM EDT Generic External Data Provider LAB BLOOD ORDERAB LES Final Result Performing Organization Address [facility] Co de Phone Number [facility] [address] [place] [phone] * TSH with Reflex to Free T4 (05/25/2024 6:30 AM EDT) TSH reflex Free T4 2.92 0.32 - 4.0 uIU/mL [facility] 05/25/2024 6:30 AM EDT 05/25/2024 6:30 AM EDT us Generic External Data Provider LAB BLOOD ORDERAB LES Final Result [facility] [address] [place], [place] [phone] * CBC auto differential (05/25/2024 6:30 AM EDT) White Blood Count 8.6 4.8 - 10.8 X10*3/uL [facility] Red Blood Count 5.79 4.60 - 5.80 X10*6/uL [facility] Hemoglobin 16.6 14.0 - 18.0 g/dl [facility] Hematocrit 49.1 42.0 - 52.0 % [facility] Mean Corpuscular Volume 84.8 80.0 - 98.0 fL [facility] Mean Corpuscular Hemoglobin 28.7 27.0 - 33.0 pg [facility] Mean Corpuscular HGB Conc 33.8 31.0 - 36.0 g/dl [facility] Red Cell Distribution Width 14.6 11.0 - 16.0 % [facility] Platelet Count 253 160 - 400 X10*3/uL [facility] Mean Platelet Volume 9.4 9.4 - 12.4 fL [facility] Neutrophils Percent Auto 58.2 45 - 73 % [facility] Imm Gran Pct Auto 0.3 0.0 - 0.4 % [facility] Lymphocytes Percent Auto 28.7 20 - 40 % [facility] Monocytes Percent Auto 8.2 2 - 11 % [facility] Eosinophils Percent Auto 3.8 0 - 4 % [facility] Basophils Percent Auto 0.8 0 - 2 % [facility] NRBC Pct Auto 0.0 0.0 - 0.2 /100WBC [facility] Neutrophils Absolute Auto 5.0 2.0 - 8.3 x10*3/uL [facility] Imm Gran Abs Auto 0.03 0.00 - 0.03 X10*3/uL [facility] Lymphocytes Absolute Auto 2.5 1.2 - 4.9 X10*3/uL [facility] Monocytes Absolute Auto 0.7 0.1 - 1.2 X10*3/uL [facility] Eosinophils Absolute Auto 0.3 0.0 - 0.4 X10*3/uL [facility] Basophils Absolute Auto 0.1 0.0 - 0.2 X10*3/uL [facility] NRBC Abs Auto 0.000 0.0 - 0.012 X10*3/uL [facility] 05/25/2024 6:30 AM EDT 05/25/2024 6:30 AM EDT Generic External Data Provider LAB BLOOD ORDERAB LES Final Result Performing Organization Address [facility] de Phone Number [facility] [address] [place] [phone] * Iron And Total Iron Binding Capacity (05/25/2024 6:30 AM EDT) Iron 46 45 - 160 mcg/dL [facility] Total Iron Binding Capacity 279 228 - 428 mcg/dL [facility] Percent Iron Saturation 16 15 - 50 % [facility] Unsaturated Iron Binding 233 ug/dL [facility] 05/25/2024 6:30 AM EDT 05/25/2024 6:30 AM EDT Generic External Data Provider LAB BLOOD ORDERAB LES Final Result Performing Organization Address [facility] de Phone Number [facility] [address] [place] [phone] * (ABNORMAL) Insulin (05/25/2024 6:30 AM EDT) Insulin 43(H) 2 - 29 uU/mL [facility] Comment:This test was perfor med [...] Final Result Performing Organization Address [facility] Co de Phone Number [facility] [address] [place] [phone] * Zinc (05/25/2024 6:30 AM EDT) Zinc 76 60 - 130 mcg/dL [facility] Comment:This test was develo ped and its analytical performancecharacteristics have been determined by [employer] [place], [place]. It hasnot been cleared or approved by the U.S. Food and DrugAdministration. This assay has been validated pursuantto the CLIA regulations and is used for clinicalpurposes.THIS TEST WAS PERFORMED AT:[employer] [id number] [place] [address]YEIWPBCLAURY ELLIS MD,PHD 05/25/2024 6:30 AM EDT 05/25/2024 6:30 AM EDT Generic External Data Provider LAB BLOOD ORDERAB LES Final Result Performing Organization Address [facility] Co de Phone Number [facility] [address] [place] [phone] * Vitamin A (05/25/2024 6:30 AM EDT) Vitamin A (Retinol) 74 38 - 98 mcg/dL [facility] Comment:Vitamin supplementat ion within 24 hours prior toblood draw may affect the accuracy of the results.This test was developed and its analytical performancecharacteristics have been determined by [employer] [place], [place]. It hasnot been cleared or approved by the U.S. Food and DrugAdministration. This assay has been validated pursuantto the CLIA regulations and is used for clinicalpurposes.THIS TEST WAS PERFORMED AT:[employer] [id number] [place] [id number] ELLIS MD,PHD 05/25/2024 6:30 AM EDT 05/25/2024 6:30 AM EDT Generic External Data Provider LAB BLOOD ORDERAB LES Final Result Performing Organization Address [facility] Co de Phone Number [facility] [address] [place] [phone] * (ABNORMAL) C-reactive Protein (05/25/2024 6:30 AM EDT) C Reactive Protein 1.04(H) < or = 0.50 mg/dL [facility] 05/25/2024 6:30 AM EDT 05/25/2024 6:30 AM EDT Generic External Data Provider LAB BLOOD ORDERAB LES Final Result Performing Organization Address [facility] Co de Phone Number [facility] [address] [place] [phone] * Vitamin B1 (05/25/2024 6:30 AM EDT) Vitamin B1 21 8 - 30 nmol/L [facility] Comment:Vitamin supplementat ion within 24 hours prior toblood draw may affect the accuracy of the results.This test was developed and its analytical performancecharacteristics have been determined by [place] It hasnot been cleared or approved by the U.S. Food and DrugAdministration. This assay has been validated pursuantto the CLIA regulations and is used for clinicalpurposes.THIS TEST WAS PERFORMED AT:[employer] [id number] [place] [address]OIGYDIULAURY ELLIS MD,PHD 05/25/2024 6:30 AM EDT 05/25/2024 6:30 AM EDT us Generic External Data Provider LAB BLOOD ORDERAB LES Final Result Performing Organization Address [facility] Co de Phone Number [facility] [address] [place] [phone] * (ABNORMAL) Hemoglobin A1c (05/25/2024 6:30 AM EDT) Only the most recent of2 resultswithin the time period is included. Hemoglobin A1c 6.2(H) <6.0 % [facility] Comment:Hemoglobin A1C Refer ence Range Adults: 4.8 - 6.0 % Non diabetic: < 6.0 % Goal: < 7.0 %Additional Action Suggested: > 8.0 %Note: Hemoglobin A1c results are invalid for patients with abnormal amounts of HbF. Blood transfusions may impact the HbA1c concentration in the patient sample. Estimated Average Glucose 131 mg/dL [facility] Comment:eAG = Estimated ave rage glucose which is %A1C expressed asaverage glucose, using the formula of the X4P-MhxznhiGzfzmtk Glucose study (ADAG), Diabetes Care, Vol.31,#8,Oct. 2007 05/25/2024 6:30 AM EDT 05/25/2024 6:30 AM EDT us Generic External Data Provider LAB BLOOD ORDERAB LES Final Result Performing Organization Address [facility] Co de Phone Number [facility] [address] [place] [phone] * Ferritin (05/25/2024 6:30 AM EDT) Ferritin 70 20 - 250 ng/mL [facility] 05/25/2024 6:30 AM EDT 05/25/2024 6:30 AM EDT us Generic External Data Provider LAB BLOOD ORDERAB LES Final Result Performing Organization Address City/[facility]/ZIP Co de Phone Number [facility] [address] [place] [phone] * (ABNORMAL) Lipid Panel, Standard (05/25/2024 6:30 AM EDT) Only the most recent of2 resultswithin the time period is included. Triglycerides 120 <150 mg/dL [facility] Comment:Desirable Triglyceri de: less than 150 mg/dLBorderline High Triglyceride 150-199 mg/dLHigh Triglyceride: 200-499 mg/dLVery High Triglyceride: greater than or equal to 5OO mg/dL Cholesterol 139 <200 mg/dL [facility] Comment:Desirable Cholestero l: less than 200 mg/dLBorderline High Cholesterol: 200-239 mg/dLHigh Cholesterol: greater than 239 mg/dL LDL Cholesterol Calculated 80 <100 mg/dL [facility] Comment:Desirable LDL: less than 100 mg/dLNear Optimal/Above Optimal LDL: 110- 129 mg/dLBorderline High LDL: 130-159 mg/dLHigh LDL: 160-189 mg/dLVery High LDL: greater than or equal to 190 mg/dL HDL Cholesterol 35(L) >40 mg/dL [facility] Comment:Desirable HDL: great er than 40 mg/dL Note: This HDL assay may give artificially low results in patients with liver disease. 05/25/2024 6:30 AM EDT 05/25/2024 6:30 AM EDT us Generic External Data Provider LAB BLOOD ORDERAB LES Final Result Performing Organization Address City/[facility]/ZIP Co de Phone Number [facility] [address] [place] [phone] * (ABNORMAL) Comprehensive Metabolic Panel (05/25/2024 6:30 AM EDT) Sodium 141 135 - 145 mmol/L [facility] Potassium 4.7 3.3 - 5.1 mmol/L [facility] Chloride 111(H) 96 - 108 mmol/L [facility] Carbon Dioxide 23 22 - 29 mmol/L [facility] Anion Gap 12 12 - 20 [facility] Urea Nitrogen (BUN) 26(H) 9 - 16 mg/dL [facility] Creatinine, Serum 1.31 0.5 - 1.4 mg/dL [facility] Estimated Glomerular Filt Rate 59 [facility] Comment:Chronic Kidney Disea se: Estimated GFR < 60 mL/min/1.98h1Yqlnji Kidney Disease: Estimated GFR < 15 mL/min/1.73m2 Glucose 123(H) 60 - 115 mg/dL [facility] Calcium 9.2 8.4 - 10.2 mg/dL [facility] Bilirubin, Total 0.3 0.0 - 1.0 mg/dL [facility] Aspartate Amino Transferase 29 5 - 37 U/L [facility] Alanine Aminotransferase 29 0 - 40 U/L [facility] Total Protein 7.2 6.5 - 8.0 g/dL [facility] Albumin Level 3.6 3.5 - 5.0 g/dL [facility] Alkaline Phosphatase 66 39 - 117 U/L [facility] 05/25/2024 6:30 AM EDT 05/25/2024 6:30 AM EDT us Generic External Data Provider LAB BLOOD ORDERAB LES Final Result [facility] [address] [place] [phone] * POCT Glucose (05/18/2024 9:21 AM EDT) Only the most recent of2 resultswithin the time period is included. Glucose Blood, POC 124 60 - 200 mg/dL QC Media Lot # [id number] Lot# Expiration Date [id number] Blood Capillary blood specimen / Unknown 05/18/2024 9:21 AM EDT us Adriane Schultz MD POINT OF CARE TEST ENTER/EDIT OR DERABLES Final Result * (ABNORMAL) Glucose, Whole Blood (04/17/2024 8:10 AM EST) [facility] Glucose, Whole Blood 119(H) 60 - 115 mg/dL [facility] Comment:METER #: [id number] Testing performed in the Endocrinology Department [address] , [address], [facility]. 04/17/2024 8:10 AM EST 04/17/2024 8:13 AM EST Generic External Data Provider LAB BLOOD ORDERAB LES Final Result [facility] [address] [place] [phone] * POCT Rapid Covid-19 BinaxNOW (04/16/2024 3:14 PM EST) [facility] Rapid COVID Ag Negative QC Media Lot # [id number] Lot# Expiration Date Swab 04/16/2024 3:14 PM EST Result [facility] Anson Stapleton MD POINT OF CARE TEST ENTER/EDIT ORDERABLES Final Result * POCT Rapid Influenza B OSOM (04/16/2024 3:13 PM EST) [facility] Rapid Influenza B Ag Negative Negative, Indeterminate QC Media Lot # [id number] Lot# Expiration Date Swab 04/16/2024 3:13 PM EST Anson Stapleton MD POINT OF CARE TEST ENTER/EDIT ORDERABLES Final Result * POCT Rapid Influenza A OSOM (04/16/2024 3:13 PM EST) [facility] Rapid Influenza A Ag Negative Negative, Indeterminate QC Media Lot # [id number] Lot# Expiration Date Swab Nasopharyngeal structure / Unknown 04/16/2024 3:13 PM EST us Anson Stapleton MD POINT OF CARE TEST ENTER/EDIT ORDERABLES Final Result * (ABNORMAL) Basic Metabolic Panel (04/15/2024 8:29 AM EST) Sodium 139 135 - 145 mmol/L [facility] Potassium 4.6 3.3 - 5.1 mmol/L [facility] Chloride 105 96 - 108 mmol/L [facility] Carbon Dioxide 27 22 - 29 mmol/L [facility] Anion Gap 12 12 - 20 [facility] Urea Nitrogen (BUN) 34(H) 9 - 16 mg/dL [facility] Creatinine, Serum 1.69(H) 0.5 - 1.4 mg/dL [facility] Estimated Glomerular Filt Rate 44 [facility] Comment:Chronic Kidney Disea se: Estimated GFR < 60 mL/min/1.66r2Sltmzm Kidney Disease: Estimated GFR < 15 mL/min/1.73m2 Glucose 117(H) 60 - 115 mg/dL [facility] Calcium 9.1 8.4 - 10.2 mg/dL [facility] 04/15/2024 8:29 AM EST 04/15/2024 8:29 AM EST us Generic External Data Provider LAB BLOOD ORDERAB LES Final Result Performing Organization Address City/State/[facility] Co de Phone Number [facility] [address] [place] [phone] * (ABNORMAL) Albumin, Random Urine W/Creatinine (04/15/2024 8:26 AM EST) Creatinine, Urine 142.30 mg/dL [facility] Microalbumin Urine >2,000.0 mg/L [facility] Microalbum Creatinine Ratio Ur 1,405.4(H ) <30 ug/mg cr [facility] Comment:Albumin/Creatinine R atio Reference Ranges: Normal: < 30 ug/mg creatinine Microalbuminuria: 30 - 300 ug/mg creatinineClinical Albuminuria: > 300 ug/mg creatinine 04/15/2024 8:26 AM EST 04/15/2024 9:32 AM EST us Generic External Data Provider LAB URINE ORDERAB LES Final Result Performing Organization Address [facility]/ZIP Co de Phone Number [facility] [address] [place] [phone] * Hepatitis C Ab (11/09/2022 9:00 AM EDT) Hepatitis C Antibody Nonreactive Nonreactive [facility] Comment:Antibodies to HCV no t detected; does not exclude early acuteHCV infection. Blood 11/09/2022 9:00 AM EDT 11/09/2022 2:35 PM EDT Martha Joyner MD LAB BLOOD ORDERABLES Final Re sult Performing Organization Address City/[facility]/ZIP Co de Phone Number [facility] [facility] [address] [place] [address] [phone] * HIV 1/2 ANTIGEN/ANTIBODY,FOURTH GENERATION W/RFL (05/26/2021 9:29 AM EDT) Pathologist [facility] HIV-1/2 ANTIGEN AND ANTIBODIES, 4TH GENERATION W/ [...] ? For additional information please refer to http://education.Damballa/faq/WTU541 (This link is being provided for informational/ educational purposes only.) ? The performance of this assay has not been clinically validated in patients less than 2 years old. ?? 05/26/2021 9:29 AM EDT us Martha Joyner MD LAB BLOOD ORDERABLES Final Re sult [facility] [address] [place] [address], from Last 3 Months or Most Recently Relevant to Health Maintenance Insurance [facility] DENTAL - HSN PARTIAL (MEDICAID) Care Teams Spiritual Counselor Relationship Specialty Start Date End Date Martha Joyner MD [address] [place] [phone] PCP - General Family Medicine 02/22/21 [facility] Nurse Practitioner Endocrinology 01/08/24
--- OUTSIDE RECORDS SUMMARY | 2024-07-09 08:26 | XMS_ITS | Encounter Summary ---
Author Organization [employer] Address [address] [place] [address] Care Team Providers Care Production Sampler Name Role Phone Martha Joyner MD Primary Care Provider [phone] Reason for Visit * Reason Onset Date Comments Med Refill 03/16/2024 Encounter Details Date Type Department Care Team (Late st Contact Info) Description 03/16/2024 Telephone [facility] MEDICINE [address] [place], [place] [phone] Martha Joyner MD [address] [place] [address] Med Refill Social History Tobacco Use Types [...] 6.25 MG tablet To be sent to: [facility] documented in this encounter Plan of Treatment Upcoming Encounters Date Type Department Care Team (Late st Contact Info) Description 07/17/2024 8:00 AM EDT Office Visit [facility] ADULT DENTAL [address] [place] [address] Harvinder Newberry documented as of this encounter Visit Diagnoses Not on filedocumented in this encounter Additional Health Concerns Assessment Noted Time PHQ-9 Depression Total Score: 19 024 3:19 PM EDT documented as of this encounter Care Teams Production Sampler Relationship Specialty Start Date End Date Martha Joyner MD [address] [place] [address] PCP - General Family Medicine 02/22/21 [facility] Nurse Practitioner Endocrinology 01/08/24 documented as of this encounter
--- OUTSIDE RECORDS SUMMARY | 2024-07-09 08:26 | XMS_ITS | Encounter Summary ---
Author Organization [facility] Address [address] [address] Phone Care Team Providers Care Clothes Presser Name Role Phone Martha Joyner MD Primary Care Provider Encounter Details Date Type Department Care Team (Late st Contact Info) Description 06/29/2021 Documentation Only [facility] [address] [place] [address] Martha Joyner MD [address] [place] [address] [phone] Social History Tobacco Use Types Packs/Day Years [...] Visit [facility] [address] [place] [address] Jose Guadalupe Coleman MD [address] [place] [address] [place] [phone] documented as of this encounter Visit Diagnoses Not on filedocumented in this encounter Care Teams Clothes Presser Relationship Specialty Start Date End Date Martha Joyner MD PCP - General Family Medicine 06/29/21 documented as of this encounter
--- OUTSIDE RECORDS SUMMARY | 2024-07-09 08:26 | XMS_ITS | Encounter Summary ---
Author Organization [employer] Address [address] 7[address] [place] [address] Care Team Providers Care Freight Car Cleaner Delta System Name Role Phone Martha oJyner MD Primary Care Provider [phone] Encounter Details Date Type Department Care Team (Late Contact Info) Description 02/15/2022 Orders Only [facility] [address] [place], [place] [phone] Martha Joyner MD [address] [place], [place] [phone] Type 2 diabetes mellitus with hyperglycemia, without long-term current use of insulin ([facility]) (Primary Dx) Social History Tobacco [...] [facility] [address] [place] [address] Harvinder Newberry documented as of this encounter [...] hyperglycemia, without long-term current use of insulin ([facility]) GLUCOSE, WHOLE BLOOD Routine 07/27/2022 2:52 PM EDT Type 2 diabetes mellitus with hyperglycemia, without long-term current use of insulin ([facility]) ALBUMIN, RANDOM URINE W/CREATININE Routine 05/18/2022 11:59 AM EDT Type 2 diabetes mellitus with hyperglycemia, without long-term current use of insulin ([facility]) LIPID PANEL, STANDARD Routine 05/18/2022 11:47 AM EDT Type 2 diabetes mellitus with hyperglycemia, without long-term current use of insulin ([facility]) GLUCOSE, WHOLE BLOOD Routine 05/18/2022 10:23 AM EDT Type 2 diabetes mellitus with hyperglycemia, without long-term current use of insulin (CMS/HCC) documented in this encounter Results * (ABNORMAL) Albumin, Random Urine W/Creatinine (11/09/2022 9:05 AM EDT) Creatinine, Urine 97.12 mg/dL [facility] Microalbumin Urine 900.0 mg/L [facility] Microalbum Creatinine Ratio Ur 926.6(H) <30 ug/mg cr [facility] Comment:Albumin/Creatinine R atio Reference Ranges: Normal: < 30 ug/mg creatinine Microalbuminuria: 30 - 300 ug/mg creatinineClinical Albuminuria: > 300 ug/mg creatinine 11/09/2022 9:05 AM EDT 11/09/2022 2:30 PM EDT Martha Joyner MD LAB URINE ORDERABLES Final Re sult Performing Organization Address [facility] de Phone Number [facility] [address] [place] [phone] * (ABNORMAL) Sed Rate by Modified Westergren (11/09/2022 9:00 AM EDT) Erythrocyte Sedimentation Rate 34(H) 0 - 15 MM/HR [facility] Comment:Patients with polycy themia and many hemoglobin abnormalitiesmay have depressed sed rates whereas patients with anemiamay have elevated sed rates. 11/09/2022 9:00 AM EDT 11/09/2022 2:45 PM EDT Martha Joyner MD LAB BLOOD ORDERABLES Final Re sult Performing Organization Address [facility] de Phone Number [facility] [address] [place] [phone] * (ABNORMAL) Comprehensive Metabolic Panel, Fasting (11/09/2022 9:00 AM EDT) Sodium 139 135 - 145 mmol/L [facility] Potassium 4.5 3.3 - 5.1 mmol/L [facility] Chloride 106 96 - 108 mmol/L [facility] Carbon Dioxide 25 22 - 29 mmol/L [facility] Anion Gap 13 12 - 20 [facility] Urea Nitrogen (BUN) 26(H) 9 - 16 mg/dL [facility] Creatinine, Serum 1.35 0.5 - 1.4 mg/dL [facility] Estimated Glomerular Filt Rate 58 [facility] Comment:NOTE: For -Am erican individuals, multiply the result by 1.210.Chronic Kidney Disease: Estimated GFR < 60 mL/min/1.53y6Fznabl Kidney Disease: Estimated GFR < 15 mL/min/1.73m2 Glucose Fasting 109(H) 60 - 99 mg/dL [facility] Comment:A fasting glucose fr om 100-125 mg/dl is considered impaired(pre-diabetes). Calcium 10.1 8.4 - 10.2 mg/dL [facility] Bilirubin, Total 0.4 0.0 - 1.0 mg/dL [facility] Aspartate Amino Transferase 30 5 - 37 U/L [facility] Alanine Aminotransferase 27 0 - 40 U/L [facility] Total Protein 7.5 6.5 - 8.0 g/dL [facility] Albumin Level 3.9 3.5 - 5.0 g/dL [facility] Alkaline Phosphatase 78 39 - 117 U/L [facility] 11/09/2022 9:00 AM EDT 11/09/2022 2:45 PM EDT Martha Joyner MD LAB BLOOD ORDERABLES Final Re sult Performing Organization Address [facility]/ZIP Co de Phone Number [facility] [address] [place] [phone] * (ABNORMAL) Glucose, Whole Blood (07/27/2022 2:52 PM EDT) Glucose, Whole Blood 183(H) 60 - 115 mg/dL [facility] Comment:METER #: [id number] 5Testing performed in the Endocrinology Department [address] , [address], [facility]. 07/27/2022 2:52 PM EDT 07/27/2022 2:56 PM EDT [facility] External Provider LAB BLO OD ORDERABLES Final Result Performing Organization Address [facility]/ZIP Co de Phone Number [facility] [address] [place] [phone] * Albumin, Random Urine W/Creatinine (05/18/2022 11:59 AM EDT) Creatinine, Urine 72.74 mg/dL [facility] Microalbumin Urine 747.0 mg/L [facility] Microalbum Creatinine Ratio Ur 1,026.9 ug/mg cr [facility] Comment:Albumin/Creatinine R atio Reference Ranges: Normal: < 30 ug/mg creatinine Microalbuminuria: 30 - 300 ug/mg creatinineClinical Albuminuria: > 300 ug/mg creatinine 05/18/2022 11:5 9 AM EDT 05/18/2022 1:23 PM EDT us [facility] External Provider LAB URI NE ORDERABLES Final Result [facility] [address] [place] [phone] * Lipid Panel, Standard (05/18/2022 11:47 AM EDT) Triglycerides 243 mg/dL [facility] Comment:Desirable Triglyceri de: less than 150 mg/dLBorderline High Triglyceride 150-199 mg/dLHigh Triglyceride: 200-499 mg/dLVery High Triglyceride: greater than or equal to 5OO mg/dL Cholesterol 152 mg/dL [facility] Comment:Desirable Cholestero l: less than 200 mg/dLBorderline High Cholesterol: 200-239 mg/dLHigh Cholesterol: greater than 239 mg/dL LDL Cholesterol Calculated 70 mg/dl [facility] Comment:Desirable LDL: less than 100 mg/dLNear Optimal/Above Optimal LDL: 110- 129 mg/dLBorderline High LDL: 130-159 mg/dLHigh LDL: 160-189 mg/dLVery High LDL: greater than or equal to 190 mg/dL HDL Cholesterol 34 mg/dL [facility] Comment:Desirable HDL: great er than 40 mg/dL Note: This HDL assay may give artificially low results in patients with liver disease. 05/18/2022 11:4 7 AM EDT 05/18/2022 1:23 PM EDT [facility] External Provider LAB BLO OD ORDERABLES Final Result Performing Organization Address [facility] de Phone Number [facility] [address] [place] [phone] * (ABNORMAL) Glucose, Whole Blood (05/18/2022 10:23 AM EDT) Glucose, Whole Blood 172(H) 60 - 115 mg/dL [facility] Comment:METER #: [id number] 5Testing performed in the Endocrinology Department [address] , [address], [facility]. 05/18/2022 10:2 3 AM EDT 05/18/2022 10:28 AM EDT [facility] External Provider LAB BLO OD ORDERABLES Final Result Performing Organization Address [facility] de Phone Number [facility] [address] [place] [phone] documented in this encounter Visit Diagnoses Diagnosis Type 2 diabetes mellitus with hyperglycemia, without long-term current use of insulin ([facility])- Primary documented in this encounter Additional Health Concerns Assessment Noted Time PHQ-9 Depression Total Score: 1 02/15/20 22 4:00 PM EST documented as of this encounter Care Teams Freight Car Cleaner [employer] System Relationship Specialty Start Date End Date Martha Joyner MD [address] [place] [address] PCP - General Family Medicine 02/22/21 [facility] Nurse Practitioner Endocrinology 01/08/24 documented as of this encounter
--- OUTSIDE RECORDS SUMMARY | 2024-07-09 08:26 | XMS_ITS | Clinical Summary ---
Author Organization [facility] [place], Address [address] [place] [address] [place] [address] Phone Care Team Providers Care Injection Operator Name Role Phone Martha Joyner MD Primary Care Provider [phone] Allergies Active Allergy Reactions Criticality Noted Date [...] UNTIL FINISHED 05/08/19 23 Active TechLite Pen [place] 31G X 5 MM [facility] USE DAILY WITH INSULIN 04/13/19 23 Active Mounjaro 2.5 MG/0.5ML solution pen-injector Inject 12.5 mg under the skin per week 05/22/19 23 Active carvedilol (COREG) 12.5 MG tablet TAKE ONE TABLET IN THE MORNING AND EVENING WITH FOOD 11/08/19 23 Active Continuous Blood Gluc Sensor (FreeStyle Jeannette 3 Sensor) [facility] USE DIRECTED TO TEST BLOOD SUGAR CHANGE [...] Visit [facility] [address] [place] [address] Jose Guadalupe Coleman MD Stage 3a chronic kidney disease (HCC) (Primary Dx); Hypertension; Diabetes mellitus without mention of complication, type II or unspecified type, uncontrolled (HCC); Persistent proteinuria 04/30/2024 Orders Only [facility] [address] [facility] [place] [address] Jose Guadalupe Coleman MD 04/28/2024 Office Communication [facility] [address] [place] [address] Tatianna Lao from Last 3 Months Social [...] Visit [facility] [place], [address] [place] [address] Jose Guadalupe Coleman MD [address] [facility] [place] [address] Health Maintenance Due Date Last [...] Urine 0-5 0 - 5 /hpf [facility] RBC, Urine 0-2 0 - 2 /hpf [facility] Squamous Epithelial, Urine None seen 0 - 10 /hpf [facility] Casts None seen None seen /lpf [facility] Bacteria, Urine None seen None seen/Few [facility] 04/30/2024 7:23 AM EST 04/30/2024 Jose Guadalupe Coleman MD LAB MICROBIOLOGY - GENERAL ORDERABLES Final Result Performing Organization Address [facility]/ZIP Co de Phone Number [facility] [address] [place] [address] * (ABNORMAL) Protein, Total, Random Urine w/Creatinine (Protein/Creat Ratio) (04/30/2024 7:23 AM EST) Pathologist [facility] Creatinine, Ur 169.1 Not Estab. mg/dL [facility] Protein, Ur 454.4 Not Estab. mg/dL [facility] Comment: Results confirmed on dilution. Urine Protein/Creati nine Ratio 2,687(H) 0 - 200 mg/g creat [facility] 04/30/2024 7:23 AM EST 04/30/2024 Jose Guadalupe Coleman MD LAB URINE ORDERABLES Final Result Performing Organization Address [facility]/ZIP Co de Phone Number [facility] [address] [place] [address] * (ABNORMAL) Urinalysis with microscopic (04/30/2024 7:23 AM EST) Specific [place], Urine 1.029 1.005 - 1.030 [facility] [phone] pH Urine 6.0 5.0 - 7.5 [facility] [phone] Color, Urine Yellow Yellow [facility] Appearance Urine Clear [facility] [phone] WBC Esterase Urine Negative Negative [facility] Protein, Ur 3+(A) Negative/Tra ce [facility] Glucose, Ur 3+(A) Negative [facility] [phone] Ketones, Urine Negative Negative [facility] Blood Urine Negative Negative [facility] Bilirubin Urine Negative Negative [facility] Urobilinogen Urine 0.2 0.2 - 1.0 mg/dL [facility] Nitrite, Urine Negative Negative [facility] Microscopic Examination See below: [facility] Comment:Microscopic was gloria cated and was performed. 04/30/2024 7:23 AM EST 04/30/2024 us Jose Guadalupe Coleman MD LAB URINE ORDERABLES Final Result [facility] [address] [place] [address] * (ABNORMAL) Renal Function Panel (04/30/2024 7:23 AM EST) Glucose 125(H) 70 - 99 mg/dL [facility] BUN 21 6 - 24 mg/dL [facility] Creatinine 1.49(H) 0.76 - 1.27 mg/dL [facility] eGFR CKD-EPI CR 2020 59(L) >59 mL/min/1.7 3 [facility] BUN/Creatinine Ratio 14 9 - 20 [facility] Sodium 139 134 - 144 mmol/L [facility] Potassium 4.4 3.5 - 5.2 mmol/L [facility] Chloride 104 96 - 106 mmol/L [facility] Bicarbonate (CO2) 20 20 - 29 mmol/L [facility] Calcium 9.2 8.7 - 10.2 mg/dL [facility] Albumin 3.8(L) 4.1 - 5.1 g/dL [facility] Phosphorus 3.6 2.8 - 4.1 mg/dL [facility] 04/30/2024 7:23 AM EST 04/30/2024 Jose Guadalupe Coleman MD LAB BLOOD ORDERABLES Final Result [facility] [address] [place] [address] from Last 3 Months Insurance [facility] Plan ([id number]) Care Teams Injection Operator Relationship Specialty Start Date End Date Martha Joyner MD PCP - General Family Medicine 06/29/21
--- OUTSIDE RECORDS SUMMARY | 2024-07-09 08:26 | XMS_ITS | Encounter Summary ---
Author Organization [employer] Address [address] [place] [address] Care Team Providers Care Labeling Associate Name Role Phone Martha Joyner MD Primary Care Provider [phone] Reason for Visit * Reason Comments Med Refill Encounter Details Date Type Department Care Team (Late Contact Info) Description 10/15/2022 Refill [facility] MED & PEDS [address] [place] [address] Martha Joyner MD [address] [place] [address] Type 2 diabetes mellitus with hyperglycemia, without long-term current use of insulin ([facility]) Social History Tobacco [...] [facility] ADULT DENTAL [address] [place] [address] Harvinder Newberry documented as of this encounter Visit Diagnoses Diagnosis Type 2 diabetes mellitus with hyperglycemia, without long-term current use of insulin ([facility]) documented in this encounter Additional Health Concerns Assessment Noted Time PHQ-9 Depression Total Score: 1 02/15/20 22 4:00 PM EST documented as of this encounter Care Teams Labeling Associate Relationship Specialty Start Date End Date Martha Joyner MD [address] [place] [address] PCP - General Family Medicine 02/22/21 [facility] Nurse Practitioner Endocrinology 01/08/24 documented as of this encounter
--- OUTSIDE RECORDS SUMMARY | 2024-07-09 08:26 | XMS_ITS | Encounter Summary ---
Author Organization [employer] Address [address] [place] [address] Care Team Providers Care Nurse Receptionist Name Role Phone Martha Joyner MD Primary Care Provider [phone] Reason for Visit * Reason Comments Med Refill Encounter Details Date Type Department Care Team ([facility] st Contact Info) Description 06/07/2024 Refill [facility] MED & PEDS [address] [place], [place] [phone] Martha Joyner MD [address] [place] [address] Type 2 diabetes mellitus with hyperglycemia, without long-term current use of insulin ([facility]) Social History Tobacco Use Types Packs/Day [...] housing situation today? I have volodymyr yumiko 07/26/[address] you li [...] [facility] [address] [place] [address] Harvinder Newberry documented as of this encounter Visit Diagnoses Diagnosis Type 2 diabetes mellitus with hyperglycemia, without long-term current use of insulin ([facility]) documented in this encounter Additional Health Concerns Assessment Noted Time PHQ-9 Depression Total Score: 19 024 3:19 PM EDT documented as of this encounter Care Teams Nurse Receptionist Relationship Specialty Start Date End Date Martha Joyner MD [address] [place] [address] PCP - General Family Medicine 02/22/21 [facility] Nurse Practitioner Endocrinology 01/08/24 documented as of this encounter
--- OUTSIDE RECORDS SUMMARY | 2024-07-09 08:26 | XMS_ITS | Encounter Summary ---
Author Organization [employer] Address [address] [place] [address] Care Team Providers Care Web Applications Architect Name Role Phone Martha Joyner MD Primary Care Provider [phone] Reason for Visit * Reason Comments Med Refill Encounter Details Date Type Department Care Team ([facility] st Contact Info) Description 07/21/2023 Refill [facility] MED & PEDS [address] [place], [place] [phone] Martha Joyner MD [address] [place] [address] Type 2 diabetes mellitus with hyperglycemia, without long-term current use of insulin ([facility]) Social History Tobacco Use Types Packs/Day Years [...] Description 07/17/2024 8:00 AM EDT Office Visit [facility] ADULT DENTAL [address] [place] [address] Harvinder Newberry documented as of this encounter Visit Diagnoses Diagnosis Type 2 diabetes mellitus with hyperglycemia, without long-term current use of insulin ([facility]) documented in this encounter Additional Health Concerns Assessment Noted Time PHQ-9 Depression Total Score: 17 024 5:09 PM EDT documented as of this encounter Care Teams Web Applications Architect Relationship Specialty Start Date End Date Martha Joyner MD [address] [place] [phone] PCP - General Family Medicine 02/22/21 [facility] Nurse Practitioner Endocrinology 01/08/24 documented as of this encounter
--- OUTSIDE RECORDS SUMMARY | 2024-07-09 08:26 | XMS_ITS | Encounter Summary ---
Author Organization [employer] Address [address] 7[address] [place] [address] Care Team Providers Care Short Haul Driver Name Role Phone Martha Joyner MD Primary Care Provider [phone] Reason for Visit * Reason Onset Date Comments Nurse Triage 11/20/2023 Encounter Details Date Type Department Care Team ([facility] st Contact Info) Description 11/20/2023 Telephone [facility] MEDICINE [address] [place], [place] [phone] Martha Joyner MD [address] [place] [address] Nurse Triage Social History Tobacco Use Types [...] Left voice message to call [facility] triage line at [phone] [phone]. * Telephone Encounter - Rangel Razo [...] [facility] ADULT D[facility] [address] [place] [address] Harvinder Newberry documented as of this encounter Visit Diagnoses Not on filedocumented in this encounter Additional Health Concerns Assessment Noted Time PHQ-9 Depression Total Score: 19 024 3:19 PM EDT documented as of this encounter Care Teams Short Haul Driver Relationship Specialty Start Date End Date Martha Joyner MD [address] [place] [address] PCP - General Family Medicine 02/22/21 [facility] Nurse Practitioner Endocrinology 01/08/24 documented as of this encounter
--- OUTSIDE RECORDS SUMMARY | 2024-07-09 08:26 | XMS_ITS | Encounter Summary ---
Author Organization [employer] Address [address] [place] [address] Care Team Providers Care Manufacturing Analyst Name Role Phone Martha Joyner MD Primary Care Provider [phone] Reason for Visit * Reason Comments Med Refill Encounter Details Date Type Department Care Team ([facility] Contact Info) Description 01/03/2023 Refill [facility] MED & PEDS [address] [place], [place] [phone] Tereza Wagner MD [address] [place] [address] Social History Tobacco Use Types Packs/Day Years [...] Description 07/17/2024 8:00 AM EDT Office Visit [facility] CHC ADULT DENTAL [address] [place] [address] Harvinder Newberry documented as of this encounter Visit Diagnoses Not on filedocumented in this encounter Additional Health Concerns Assessment Noted Time PHQ-9 Depression Total Score: 1 02/15/20 22 4:00 PM EST documented as of this encounter Care Teams Manufacturing Analyst Relationship Specialty Start Date End Date Martha Joyner MD [address] [place] [id number] PCP - General Family Medicine 02/22/21 [facility] Nurse Practitioner Endocrinology 01/08/24 documented as of this encounter
--- OUTSIDE RECORDS SUMMARY | 2024-07-09 08:26 | XMS_ITS | Encounter Summary ---
Author Organization [employer] Address [address] 7[address] [place] [address] Care Team Providers Care Echo Technician Name Role Phone Martha Joyner MD Primary Care Provider [phone] Reason for Visit * Reason Comments Med Refill Encounter Details Date Type Department Care Team ([facility] Contact Info) Description 03/11/2023 Telephone [facility] MED & PEDS [address] [place], [place] [phone] Martha Joyner MD [address] [place] [address] Med Refill Social History Tobacco Use Types [...] note were not included. MD Deya Bryson [facility] Med & Peds Nurses Caller: Unspecified (Yesterday, 1:10 PM) Hi! Please could you follow up on the urology referral I placed, and if a appointment already givencould it be scheduled as soon as possible? TC placed to [facility] urology @ [phone] to see if patient has been seen [...] chart. TC placed to [facility] @ [phone] to request U/S report be faxed to [facility] Urology @ [phone]. They faxed it. TC placed to patient to encourage him to make a sooner appointment with urology or at least keep his upcoming appointment. No answer. LM to call us back. Routing to Dr. Doran so he is aware and back to [facility] nurses so they can try again. Patient has f/u with PCP scheduled for 04/02/23. Notes added to appointment for that day. documented in this encounter Plan of Treatment Upcoming Encounters Date Type Department Care Team (Late st Contact Info) Description 07/17/2024 8:00 AM EDT Office Visit [facility] CHC ADULT DENTAL [address] [place] [address] Harvinder Newberry documented as of this encounter Visit Diagnoses Not on filedocumented in this encounter Additional Health Concerns Assessment Noted Time PHQ-9 Depression Total Score: 1 02/15/20 22 4:00 PM EST documented as of this encounter Care Teams Echo Technician Relationship Specialty Start Date End Date Martha Joyner MD [address] [place] [address] PCP - General Family Medicine 02/22/21 [facility] Nurse Practitioner Endocrinology 01/08/24 documented as of this encounter
--- OUTSIDE RECORDS SUMMARY | 2024-07-09 08:27 | XMS_ITS | Encounter Summary ---
Author Organization [employer] Address [address] 7[address] [place] [address] Care Team Providers Care Doll Wig Maker Rooted Hair Name Role Phone Martha Joyner MD Primary Care Provider [phone] Encounter Details Date Type Department Care Team ([facility] st Contact Info) Description 05/01/2023 Telephone [facility] CHC MED & PEDS [address] [place], [place] [phone] Martha Joyner MD 505 [place], [place] [phone] Social History Tobacco Use Types Packs/Day Years [...] [facility] AD[facility] [address] [place] [address] Harvinder Newberry documented as of this encounter Visit Diagnoses Not on filedocumented in this encounter Additional Health Concerns Assessment Noted Time PHQ-9 Depression Total Score: 1 02/15/20 22 4:00 PM EST documented as of this encounter Care Teams Doll Wig Maker Rooted Hair Relationship Specialty Start Date End Date Martha Joyner MD [address] [place] [address] PCP - General Family Medicine 02/22/21 [facility] Nurse Practitioner Endocrinology 01/08/24 documented as of this encounter
--- OUTSIDE RECORDS SUMMARY | 2024-07-09 08:27 | XMS_ITS | Encounter Summary ---
Author Organization [employer] Address [address] [place] [address] Care Team Providers Care Offset Pressman Name Role Phone Martha Joyner MD Primary Care Provider [phone] Reason for Visit * Reason Comments Med Refill Encounter Details Date Type Department Care Team ([facility] st Contact Info) Description 05/30/2023 Refill [facility] CHC MED & PEDS [address] [place], [place] [phone] Martha Joyner MD 505 [place] [address] Primary hypertension Social History Tobacco Use Types [...] [facility] ADULT DENTAL [address] [place] [address] Harvinder Newberry documented as of this encounter Visit Diagnoses Diagnosis Primary hypertension Unspecified essential hypertension documented in this encounter Additional Health Concerns Assessment Noted Time PHQ-9 Depression Total Score: 1 02/15/20 22 4:00 PM EST documented as of this encounter Care Teams Offset Pressman Relationship Specialty Start Date End Date Martha Joyner MD [address] [place] [address] PCP - General Family Medicine 02/22/21 [facility] Nurse Practitioner Endocrinology 01/08/24 documented as of this encounter
--- OUTSIDE RECORDS SUMMARY | 2024-07-09 08:28 | XMS_ITS | Encounter Summary ---
Author Organization [employer] Address [address] [place] [address] Care Team Providers Care Mental Health Practitioner Name Role Phone Martha Joyner MD Primary Care Provider [phone] Encounter Details Date Type Department Care Team (Late st Contact Info) Description 03/13/2023 Telephone [facility] [address] [place] [address] Martha Joyner MD [address] [place], [place] [phone] Social History Tobacco Use Types Packs/Day Years [...] indicated. Report faxed at this time to [phone] documented in this encounter Plan of Treatment Upcoming Encounters Date Type Department Care Team (Late st Contact Info) Description 07/17/2024 8:00 AM EDT Office Visit [facility] ADULT DENTAL [address] [place] [address] Harvinder Newberry documented as of this encounter Visit Diagnoses Not on filedocumented in this encounter Additional Health Concerns Assessment Noted Time PHQ-9 Depression Total Score: 1 02/15/20 22 4:00 PM EST documented as of this encounter Care Teams Mental Health Practitioner Relationship Specialty Start Date End Date Martha Joyner MD [address] [place] [address] PCP - General Family Medicine 02/22/21 [facility] Nurse Practitioner Endocrinology 01/08/24 documented as of this encounter
--- OUTSIDE RECORDS SUMMARY | 2024-07-09 08:28 | XMS_ITS | Encounter Summary ---
Author Organization [facility] Address [address] [address] Phone Care Team Providers Care Waste/Materials Exchange Specialist Name Role Phone Martha Joyner MD Primary Care Provider [phone] Encounter Details Date Type Department Care Team (Late st Contact Info) Description 06/29/2021 Documentation Only [facility] [address] [place] [address] Martha Joyner MD [address] [place] [phone] Social History Tobacco Use Types Packs/Day Years [...] [facility] [address] [place] [address] Jose Guadalupe Coleman MD [address] [place] [address] [place] [phone] documented as of this encounter Visit Diagnoses Not on filedocumented in this encounter Care Teams Waste/Materials Exchange Specialist Relationship Specialty Start Date End Date Martha Joyner MD PCP - General Family Medicine 06/29/21 documented as of this encounter
--- OUTSIDE RECORDS SUMMARY | 2024-07-09 08:28 | XMS_ITS | Encounter Summary ---
Author Organization [facility] Address [address] [address] Phone Care Team Providers Care Erp Analyst Name Role Phone Martha Joyner MD Primary Care Provider [phone] Encounter Details Date Type Department Care Team (Late st Contact Info) Description 06/29/2021 Documentation Only [facility] [address] [place] [address] Martha Joyner MD [address] [place] [phone] Social History Tobacco Use Types Packs/Day Years [...] [facility] [address] [place] [address] Jose Guadalupe Coleman MD [address] [place] [address] [place] [phone] documented as of this encounter Visit Diagnoses Not on filedocumented in this encounter Care Teams Erp Analyst Relationship Specialty Start Date End Date Martha Joyner MD PCP - General Family Medicine 06/29/21 documented as of this encounter
== END 2024-07-09 09:10 | disposition home or self-care (01) ==
LOC: HO.HBST 08:10
PROVIDERS: PCP Family Medicine; Visit Provider Counselor Mental Health
DX: F43.20 Adjustment disorder, unspecified (principal); Z71.89 Other specified counseling
CPT/HCPCS: 90837

== ENCOUNTER 2024-07-13 08:02 | Outpatient (AMB) | payer OTHER, SELFPAY ==
[2024-07-13 08:04] VITALS: BP 102/70; PULSE 95; O2SAT 96; BMI 42.8
--- NOTE | 2024-07-13 08:04 | A.OFFVIS_ITS ---
Vital Signs 07/13/24 08:04 Height 5 ft 10.87 in Weight 306 lb 0.026 oz BMI 42.8 BP 102/70 Blood Pressure Location Lt brachial Position Sitting Pulse 95 Pulse Source Pulse Oximeter Pulse Oximetry (%) 96 Oxygen Delivery Method Room Air Intake Visit Reasons: T2DM Intake Note: Patient present today for Type 2 Diabetes Mellitus Last Diabetic eye exam: 09/2023 Last Podiatry Visit: Doesn't have one Random Glucose: 113 mg/dl HgA1C: 6.2% 05/25/24 Radar Engineer Required: No Accompanied by: Self / Same As Patient Allergies No Known Allergies Allergy (Verified 07/13/24 08:09) Medication List - Last Reconciled 07/13/24 by Park Perkins PA-C allopurinol 300 mg PO BEDTIME ashwagandha extract 300 mg PO blood-glucose meter (FreeStyle Dora Lite kit) As directed blood-glucose sensor (FreeStyle Jeannette 3 Plus Sensor device) Use daily As directed to monitor glucose carvedilol 6.25 mg PO BID cholecalciferol (vitamin D3) 50 mcg PO DAILY clomiphene citrate 50 mg PO 3XW cyanocobalamin (vitamin B-12) 3,000 mcg PO DAILY dapagliflozin propanediol (Farxiga) 10 mg PO DAILY lancets (TRUEplus Lancets) As directed thiamine HCl (vitamin B1) 500 mg PO DAILY tirzepatide (Mounjaro) 12.5 mg (0.5 mL) subcut QWEEK valsartan 320 mg PO DAILY HPI HPI T2DM: Details: Patient is a 44-year-old male who has a significant past medical history of type 2 diabetes, hypertension, low libido, gout who presents today for a diabetic follow-up. Endo: DM: He was dx with t2dm around 2013. He states that he did have diabetic Education and understands that he should be doing with his diet. His A1c is 6.2.. He is currently on farxiga 10 mg and Mounjaro 12.5 mg weekly. -He was restarted on farxiga earlier this year. He states that this has helped improve his microalbuminuria. -metformin d/c due to gi discomfort He states almost everyone on his father's side has t2dm with kidney problems. He has lost 25 lbs so far with the increased dosage of mounjaro. Nephro: Sees Dr. Coleman. The microalbuminuria is worsening. He has a follow up in a couple weeks with him. CV: Blood pressure today in the office is 102/70. Patient is currently on valsartan 320 mg, amlodipine 10 mg and Bystolic 10 mg daily. Cholesterol is diet controlled. [facility] Medical History (Updated 07/13/24 @ 08:31 by Park Perkins PA-C) Chronic kidney disease Back pain Numbness and tingling in both hands History of palpitations Morbid obesity HTN (hypertension) Type 2 diabetes mellitus Surgical History No pertinent past surgical history Family History (Updated 04/30/24 @ 08:01 by WILLIAM Yeboah) Mother High blood pressure Father Diabetes Kidney problem High blood pressure Maternal Aunt Cancer Maternal Aunt Cancer Social History Are you a primary medicare compliance auditor to a significant other at home: No Do you presently have visiting nurse or other home services: No Alcohol intake: never Patient Tobacco Use Status: Never used Tobacco Physical Exam Const Orientation/consciousness: patient oriented x3 Neck Neck: Yes no lymphadenopathy Thyroid: Thyroid normal Carotids: no bruits Resp Auscultation: clear to auscultation bilaterally Cardio Rate: regular rate Rhythm: regular rhythm Heart sounds: S1 normal heart sound present and S2 normal heart sound present Peripheral pulses: dorsalis pedis present Neuro General: patient oriented x3, gait normal and no focal motor deficits Extrem Other: Monofilament sensation intact bilaterally. Vibratory sensation intact bilaterally. Skin intact. General: Yes normal to inspection Results Reviewed Results Reviewed: Laboratory Tests 05/25/24 06:30 Sodium 141 Potassium 4.7 Chloride 111 H Carbon Dioxide 23 Anion Gap 12 BUN 26 H Creatinine 1.31 Estimated GFR 59 Random Glucose 123 H Hemoglobin A1c % 6.2 H Insulin Level 43 H Triglycerides 120 Cholesterol 139 LDL Cholesterol, Calc 80 HDL Cholesterol 35 L Ordering Physician: Obey Mendoza MD Date of Service: 06/24/24 Procedure(s): US abdomen comp w elastography Accession Number(s): [id number] cc: Obey Mendoza MD; Martha Joyner MD~ EXAMINATION: US ABDOMEN COMPLETE WITH LIVER ELASTOGRAPHY HISTORY: E66.01 - Morbid (severe) obesity due to excess calories TECHNIQUE: Real-time grayscale ultrasound imaging of the abdomen was performed and images were reviewed. COMPARISON: There are no prior studies for comparison. FINDINGS: Liver: The right lobe of the liver measures 18.2 cm in size. The left lobe of the liver measures 11.3 cm in size. The liver demonstrates increased echotexture, consistent with steatosis. There are scattered areas of focal fatty sparing. No focal mass or intrahepatic biliary ductal dilatation is identified. There is normal hepatopedal flow in the portal vein. Ultrasound elastography of the liver was performed with 10 separate measurements of the liver parenchyma with the patient in the supine position. Measurements were obtained approximately 2 cm below Michel's capsule and perpendicular to the capsule. The median shear wave velocity is 1.37 m/s. The interquartile range/median (IQR/median) is 0.18. Gallbladder and biliary tree: The gallbladder is unremarkable, without evidence of calculi, wall thickening, or pericholecystic fluid. There is no sonographic Prado sign. The common bile duct is normal in caliber measuring 4 mm. Kidneys: The right kidney measures 11.9 cm in length. The left kidney measures 11.4 cm in length. There is a 1.3 cm cyst at the upper pole of the left kidney. The kidneys are otherwise unremarkable, without evidence of solid masses, hydronephrosis, or calculi. Pancreas: The pancreatic head, neck, and body are unremarkable. The pancreatic tail is obscured by bowel gas. Spleen: The spleen is normal in size and contour, measuring 11.1 cm in length. Abdominal aorta and inferior vena cava: The visualized portions of the abdominal aorta and inferior vena cava are normal in caliber. There is no free fluid in the abdomen. US/US abdomen comp w elastography IMPRESSION: Hepatomegaly and hepatic steatosis. The median shear wave velocity in the liver is 1.37 m/s, corresponding to a median liver stiffness of 5.71 kPa. The IQR/median value is 0.18. This is indicative of a poor quality data set, and the estimated liver stiffness may be unreliable. Findings are indicative of a low elastography value which rules out advanced chronic liver disease in asymptomatic patients. REFERENCE: Society of Radiologists in Ultrasound Liver Stiffness Thresholds (2020): LIVER STIFFNESS THRESHOLDS: *Shear wave velocity less than 1.3 m/s (Liver Stiffness equal or less than 5 kPa): High probability of being normal. *Shear wave velocity less than 1.7 m/s (Liver Stiffness less than 9 kPa): In the absence of other known clinical signs, rules out compensated advanced chronic liver disease. *Shear wave velocity between 1.7-2.1 m/s (Liver Stiffness 9-13 kPa): Suggestive of compensated advanced chronic liver disease but need further test for confirmation. *Shear wave velocity between 2.1-2.4 m/s (Liver Stiffness 13-17 kPa): Rules in compensated advanced chronic liver disease. *Shear wave velocity greater than 2.4 m/s (Liver Stiffness over 17 kPa): Suggestive of clinically significant portal hypertension. QUALITY OF DATA SET: *IQR/Median value equal or less than 0.15 implies a quality data set. *IQR/Median value over 0.15 implies a poor quality data set. SIGNIFICANT CHANGE FROM PRIOR EXAM: Significant change if liver stiffness measurement is 10% or greater from prior exam. Assessment & Plan Assessment & Plan (1) Type 2 diabetes mellitus: Code(s): E11.9 - Type 2 diabetes mellitus without complications Category: Medical Qualifiers: Diabetes mellitus assisted insulin use: without assisted use Diabetes mellitus complication status: with kidney complications Diabetes mellitus complication detail: with diabetic microalbuminuria Qualified Code(s): E11.29 - Type 2 diabetes mellitus with other diabetic kidney complication; R80.9 - Proteinuria, unspecified Plan: well controlled continue current plan (2) Microalbuminuria due to type 2 diabetes mellitus: Code(s): E11.29 - Type 2 diabetes mellitus with other diabetic kidney complication; R80.9 - Proteinuria, unspecified Category: Medical Plan: improved with jardiance (3) CKD (chronic kidney disease) stage 3, GFR 30-59 ml/min: Code(s): N18.30 - Chronic kidney disease, stage 3 unspecified Category: Medical Plan: stable following with nephrology (4) HTN (hypertension): Code(s): I10 - Essential (primary) hypertension Category: Medical Qualifiers: Hypertension type: primary hypertension Qualified Code(s): I10 - Essential (primary) hypertension Plan: wnl continue current plan Coding Level of Care Code Est Pt Level 4 (59910) Complex EM visit Add On G2211 Diagnoses Type 2 diabetes mellitus with diabetic microalbuminuria, without long-term current use of insulin E11.29; R80.9 Diabetes mellitus assisted insulin use: without assisted use Diabetes mellitus complication status: with kidney complications Diabetes mellitus complication detail: with diabetic microalbuminuria Microalbuminuria due to type 2 diabetes mellitus E11.29; R80.9 CKD (chronic kidney disease) stage 3, GFR 30-59 ml/min N18.30 Primary hypertension I10 Hypertension type: primary hypertension
--- OUTSIDE RECORDS SUMMARY | 2024-07-13 08:07 | XMS_ITS | Encounter Summary ---
Author Organization [employer] Address [address] [place] [address] Care Team Providers Care Precision Agriculture Technician Name Role Phone Martha Joyner MD Primary Care Provider [phone] Reason for Visit * Reason Comments Med Refill Encounter Details Date Type Department Care Team ([facility] Contact Info) Description 03/11/2023 Telephone [facility] MED & PEDS [address] [place], [place] [phone] Martha Joyner MD [address] [place] [address] Med Refill Social History Tobacco Use Types [...] note were not included. MD Deya Bryson [facility] Med & Peds Nurses Caller: Unspecified (Yesterday, 1:10 PM) Hi! Please could you follow up on the urology referral I placed, and if a appointment already givencould it be scheduled as soon as possible? TC placed to [facility] urology @ [phone] to see if patient has been seen [...] chart. TC placed to [facility] @ [phone] to request U/S report be faxed to [facility] Urology @ [phone]. They faxed it. TC placed to patient to encourage him to make a sooner appointment with urology or at least keep his upcoming appointment. No answer. LM to call us back. Routing to Dr. Doran so he is aware and back to [facility] nurses so they can try again. Patient has f/u with PCP scheduled for 04/02/23. Notes added to appointment for that day. documented in this encounter Plan of Treatment Upcoming Encounters Date Type Department Care Team (Late st Contact Info) Description 07/17/2024 8:00 AM EDT Office Visit [facility] ADULT DENTAL [address] [place] [address] Harvinder Newberry 08/17/2024 9:00 AM EDT Office Visit [facility] MED & PEDS [address] [place] [address] Martha Joyner MD [address] [place] [address] documented as of this encounter Visit Diagnoses Not on filedocumented in this encounter Additional Health Concerns Assessment Noted Time PHQ-9 Depression Total Score: 1 02/15/20 22 4:00 PM EST documented as of this encounter Care Teams Precision Agriculture Technician Relationship Specialty Start Date End Date Martha Joyner MD [address] [place] [address] PCP - General Family Medicine 02/22/21 [facility] Nurse Practitioner Endocrinology 01/08/24 documented as of this encounter
--- OUTSIDE RECORDS SUMMARY | 2024-07-13 08:07 | XMS_ITS | Encounter Summary ---
Author Organization [employer] Address [address] [place] [address] Care Team Providers Care Cartography Supervisor Name Role Phone Martha Joyner MD Primary Care Provider [phone] Encounter Details Date Type Department Care Team (Late Contact Info) Description 02/15/2022 Orders Only [facility] MED & [facility]EDS [address], [place] [phone] Martha Joyner MD [address] [place], [place] [phone] Type 2 diabetes mellitus with hyperglycemia, without long-term current use of insulin ([facility]) (Primary Dx) Social History Tobacco Use Types [...] [facility] [address] [place] [address] Harvinder Newberry 08/17/2024 9:00 AM EDT Office Visit [facility] [address] [place] [address] Martha Joyner MD [address] [place] [address] documented as of this encounter Procedures Procedure [...] W/Creatinine (11/09/2022 9:05 AM EDT) Pathologist [facility] Creatinine, Urine 97.12 mg/dL [facility] Microalbumin Urine 900.0 mg/L H [facility] Microalbum Creatinine Ratio Ur 926.6(H) <30 ug/mg cr [facility] Comment:Albumin/Creatinine R at Reference Ranges: Normal: < 30 ug/mg creatinine Microalbuminuria: 30 - 300 ug/mg creatinineClinical Albuminuria: > 300 ug/mg creatinine 11/09/2022 9:05 AM EDT 11/09/2022 2:30 PM EDT us Martha Joyner MD LAB URINE ORDERABLES Final Re sult Performing Organization Address City/[facility]/ZIP Co de Phone Number [facility] [address] [place] [phone] * (ABNORMAL) Sed Rate by Modified Augustusren (11/09/2022 9:00 AM EDT) Pathologist [facility] Erythrocyte Sedimentation Rate 34(H) 0 - 15 MM/HR [facility] Comment:Patients with polycy themia and many hemoglobin abnormalitiesmay have depressed sed rates whereas patients with anemiamay have elevated sed rates. 11/09/2022 9:00 AM EDT 11/09/2022 2:45 PM EDT us Martha Joyner MD LAB BLOOD ORDERABLES Final Re sult Performing Organization Address City/[facility]/ZIP Co de Phone Number [facility] [address] [place] [phone] * (ABNORMAL) Comprehensive Metabolic Panel, Fasting (11/09/2022 9:00 AM EDT) Pathologist [facility] Sodium 139 135 - 145 mmol/L [facility] Potassium 4.5 3.3 - 5.1 mmol/L [facility] Chloride 106 96 - 108 mmol/L [facility] Carbon Dioxide 25 22 - 29 mmol/L [facility] Anion Gap 13 12 - 20 [facility] Urea Nitrogen (BUN) 26(H) 9 - 16 mg/dL [facility] Creatinine, Serum 1.35 0.5 - 1.4 mg/dL [facility] Estimated Glomerular Filt Rate 58 [facility] Comment:NOTE: For -Am erican individuals, multiply the result by 1.210.Chronic Kidney Disease: Estimated GFR < 60 mL/min/[id number] Kidney Disease: Estimated GFR < 15 mL/min/1.73m2 Glucose Fasting 109(H) 60 - 99 mg/dL [facility] Comment:A fasting glucose fr om 100-125 mg/dl is considered impaired(pre-diabetes). Calcium 10.1 8.4 - 10.2 mg/dL [facility] Bilirubin, Total 0.4 0.0 - 1.0 mg/dL [facility] Aspartate Amino Transferase 30 5 - 37 U/L [facility] Alanine Aminotransferase 27 0 - 40 U/L [facility] Total Protein 7.5 6.5 - 8.0 g/dL [facility] Albumin Level 3.9 3.5 - 5.0 g/dL [facility] Alkaline Phosphatase 78 39 - 117 U/L [facility] 11/09/2022 9:00 AM EDT 11/09/2022 2:45 PM EDT us Martha Joyner MD LAB BLOOD ORDERABLES Final Re sult [facility] [address] [place] [phone] * (ABNORMAL) Glucose, Whole Blood (07/27/2022 2:52 PM EDT) Glucose, Whole Blood 183(H) 60 - 115 mg/dL [facility] Comment:METER #: [id number] 5Testing performed in the Endocrinology Department [address] , [address], [facility]. 07/27/2022 2:52 PM EDT 07/27/2022 2:56 PM EDT [facility] External Provider LAB BLO OD ORDERABLES Final Result Performing Organization Address [facility] [[email or web address]] Co de Phone Number [facility] [address] [place] [phone] * Albumin, Random Urine W/Creatinine (05/18/2022 11:59 AM EDT) Creatinine, Urine 72.74 mg/dL [facility] Microalbumin Urine 747.0 mg/L [facility] Microalbum Creatinine Ratio Ur 1,026.9 ug/mg cr [facility] Comment:Albumin/Creatinine R atio Reference Ranges: Normal: < 30 ug/mg creatinine Microalbuminuria: 30 - 300 ug/mg creatinineClinical Albuminuria: > 300 ug/mg creatinine 05/18/2022 11:5 9 AM EDT 05/18/2022 1:23 PM EDT [facility] External Provider LAB URI NE ORDERABLES Final Result Performing Organization Address [facility] [[email or web address]] Co de Phone Number [facility] [address] [place] [phone] * Lipid Panel, Standard (05/18/2022 11:47 AM EDT) Triglycerides 243 mg/dL [facility] Comment:Desirable Triglyceri de: less than 150 mg/dLBorderline High Triglyceride 150-199 mg/dLHigh Triglyceride: 200-499 mg/dLVery High Triglyceride: greater than or equal to 5OO mg/dL Cholesterol 152 mg/dL [facility] Comment:Desirable Cholestero l: less than 200 mg/dLBorderline High Cholesterol: 200-239 mg/dLHigh Cholesterol: greater than 239 mg/dL LDL Cholesterol Calculated 70 mg/dl [facility] Comment:Desirable LDL: less than 100 mg/dLNear Optimal/Above Optimal LDL: 110- 129 mg/dLBorderline High LDL: 130-159 mg/dLHigh LDL: 160-189 mg/dLVery High LDL: greater than or equal to 190 mg/dL HDL Cholesterol 34 mg/dL [facility] Comment:Desirable HDL: great er than 40 mg/dL Note: This HDL assay may give artificially low results in patients with liver disease. 05/18/2022 11:4 7 AM EDT 05/18/2022 1:23 PM EDT [facility] External Provider LAB BLO OD ORDERABLES Final Result Performing Organization Address [facility] [[email or web address]] Co de Phone Number [facility] [address] [place] [phone] * (ABNORMAL) Glucose, Whole Blood (05/18/2022 10:23 AM EDT) Glucose, Whole Blood 172(H) 60 - 115 mg/dL [facility] Comment:METER #: [id number] 5Testing performed in the Endocrinology Department [address], [address], [facility]. 05/18/2022 10:2 3 AM EDT 05/18/2022 10:28 AM EDT [facility] External Provider LAB BLO OD ORDERABLES Final Result Performing Organization Address [facility] de Phone Number [facility] [address] [place] [phone] documented in this encounter Visit Diagnoses Diagnosis Type 2 diabetes mellitus with hyperglycemia, without long-term current use of insulin (CMS/HCC)- Primary documented in this encounter Additional Health Concerns Assessment Noted Time PHQ-9 Depression Total Score: 1 02/15/20 22 4:00 PM EST documented as of this encounter Care Teams Cartography Supervisor Relationship Specialty Start Date End Date Martha Joyner MD [address] [place] [address] PCP - General Family Medicine 02/22/21 [facility] Nurse Practitioner Endocrinology 01/08/24 documented as of this encounter
--- OUTSIDE RECORDS SUMMARY | 2024-07-13 08:07 | XMS_ITS | Encounter Summary ---
Author Organization [employer] Address [address] [place] [address] Care Team Providers Care Nuclear Station Operator Name Role Phone Martha Joyner MD Primary Care Provider [phone] Reason for Visit * Reason Comments Med Refill Encounter Details Date Type Department Care Team (Late Contact Info) Description 10/15/2022 Refill [facility] MED & PEDS [address] [place] [address] Martha Joyner MD [address] [place] [address] Type 2 diabetes mellitus with hyperglycemia, without long-term current use of insulin ([facility]) [...] Description 07/17/2024 8:00 AM EDT Office Visit [facility] ADULT DENTAL [address] [place] [address] Harvinder Newberry 08/17/2024 9:00 AM EDT Office Visit [facility]EDS [address] [place] [address] Martha Joyner MD [address] [place] [address] documented as of this encounter Visit Diagnoses Diagnosis Type 2 diabetes mellitus with hyperglycemia, without long-term current use of insulin ([facility]) documented in this encounter Additional Health Concerns Assessment Noted Time PHQ-9 Depression Total Score: 1 02/15/20 22 4:00 PM EST documented as of this encounter Care Teams Nuclear Station Operator Relationship Specialty Start Date End Date Martha Joyner MD [address] [place] [phone] PCP - General Family Medicine 02/22/21 [facility] Nurse Practitioner Endocrinology 01/08/24 documented as of this encounter
--- OUTSIDE RECORDS SUMMARY | 2024-07-13 08:07 | XMS_ITS | Encounter Summary ---
Author Organization [facility] Address [address] [address] Phone Care Team Providers Care Supervisor Webbing Name Role Phone Martha Joyner MD Primary Care Provider [phone] Encounter Details Date Type Department Care Team (Late st Contact Info) Description 06/29/2021 Documentation Only [facility] [address] [place] [address] Martha Joyner MD [address] [place] [phone] Social History Tobacco Use Types Packs/Day Years [...] [facility] [address] [place] [address] Jose Guadalupe Coleman MD [address] [place] [address] [place] [phone] documented as of this encounter Visit Diagnoses Not on filedocumented in this encounter Care Teams Supervisor Webbing Relationship Specialty Start Date End Date Martha Joyner MD PCP - General Family Medicine 06/29/21 documented as of this encounter
--- OUTSIDE RECORDS SUMMARY | 2024-07-13 08:07 | XMS_ITS | Encounter Summary ---
Author Organization [employer] Address [address] [place] [address] Care Team Providers Care Physician Specialist Name Role Phone Martha Joyner MD Primary Care Provider [phone] Reason for Visit * Reason Comments Med Refill Encounter Details Date Type Department Care Team ([facility] st Contact Info) Description 06/07/2024 Refill [facility] & PEDS [address] [place], [place] [phone] Mratha Joyner MD [address] [place] [address] Type 2 diabetes mellitus with hyperglycemia, without long-term current use of insulin ([facility]) Social History Tobacco Use Types [...] [facility] [address] [place] [address] Harvinder Newberry 08/17/2024 9:00 AM EDT Office Visit [facility] MED & PEDS [address] [place] [address] Martha Joyner MD [address] [place] [address] documented as of this encounter Visit Diagnoses Diagnosis Type 2 diabetes mellitus with hyperglycemia, without long-term current use of insulin ([facility]) documented in this encounter Additional Health Concerns Assessment Noted Time PHQ-9 Depression Total Score: 19 024 3:19 PM EDT documented as of this encounter Care Teams Physician Specialist Relationship Specialty Start Date End Date Martha Joyner MD [address] [place] [phone] PCP - General Family Medicine 02/22/21 [facility] Nurse Practitioner Endocrinology 01/08/24 documented as of this encounter
--- OUTSIDE RECORDS SUMMARY | 2024-07-13 08:07 | XMS_ITS | Encounter Summary ---
Author Organization [employer] Address [address] [place] [address] Care Team Providers Care Shorthand Teacher Name Role Phone Martha Joyner MD Primary Care Provider [phone] Reason for Visit * Reason Comments Med Refill Encounter Details Date Type Department Care Team ([facility] st Contact Info) Description 07/21/2023 Refill [facility] PEDS [address] [place], [place] [phone] Martha Joyner MD [address] [place] [address] Type 2 diabetes mellitus with hyperglycemia, without long-term current use of insulin ([facility]) Social History Tobacco Use Types Packs/Day Years [...] AM EDT Office Visit [facility] [address] [place] [address] Harvinder Newberry 08/17/2024 9:00 AM EDT Office Visit [facility] [address] [place] [address] Martha Joyner MD [address] [place] [address] documented as of this encounter Visit Diagnoses Diagnosis Type 2 diabetes mellitus with hyperglycemia, without long-term current use of insulin ([facility]) documented in this encounter Additional Health Concerns Assessment Noted Time PHQ-9 Depression Total Score: 17 024 5:09 PM EDT documented as of this encounter Care Teams Shorthand Teacher Relationship Specialty Start Date End Date Martha Joyner MD [address] [place] [phone] PCP - General Family Medicine 02/22/21 [facility] Nurse Practitioner Endocrinology 01/08/24 documented as of this encounter
--- OUTSIDE RECORDS SUMMARY | 2024-07-13 08:07 | XMS_ITS | Clinical Summary ---
Author Organization [employer] Address [address] [place] [address] Care Team Providers Care Grader Marker Name Role Phone Martha Joyner MD Primary Care Provider [phone] Allergies No known active allergies Medications * [...] tablet 11 025 2025 Active Continuous Glucose Spar Machine Operator (FreeStyle Jeannette 3 [place]) deviceIndicatio ns:Type 2 diabetes mellitus with hyperglycemia, without long-term current use of insulin ([facility]) 1 each Once per day. Use as directed for CGM 1 each 025 Active Continuous Glucose Sensor (FreeStyle Jeannette 3 Plus Sensor) miscIndications :Type 2 diabetes mellitus with hyperglycemia, without long-term current use of insulin ([facility]) 1 each every 15 days. [...] PTSD (post-traumatic stress disorder) 09/12/2023 Fractured dental mormonism with loss of materi al 07/31/2023 JERRY [...] = 109 Patient is managed by [facility] end[facility]. His DM2 is trending in the [...] levels. Continue taking mounjaro as perscribed by powerhouse mechanic. Will montior and lower metformin as needed. [...] elevated a1c of 10.7% and glucoe of [place]. No measuring his glucose at home, will [...] Type Department Care Team Description 07/02/2024 Refill [facility] [address] [place] [address] Martha Joyner MD Ear itch 06/07/2024 Refill [facility] [address] [place] [address] Martha Joyner MD Type 2 diabetes mellitus with hyperglycemia, without long-term current use of insulin ([facility]) 05/26/2024 Travel 05/25/2024 Orders Only GENERIC EXTERNAL DATA DEPARTMENT Provider, Generic External Data 05/18/2024 8:30 AM EDT Office Visit [facility] [address] [place] [address] Adriane Schultz MD Type 2 diabetes mellitus with hyperglycemia, without long-term current use of insulin ([facility]) (Primary Dx); Hypoglycemic episode in patient with diabetes mellitus (CMS/[facility]); Primary hypertension; Plantar fasciitis 05/18/2024 Telephone [facility] [address] [place] [address] Martha Joyner MD Change PCP 05/18/2024 Travel 05/06/2024 Telephone [facility] [address] [place] [address] Martha Joyner MD 05/04/2024 Telephone [facility] [address] [place] [phone] Martha Joyner MD Nurse Triage 04/22/2024 8:00 AM EST Office Visit [facility] AD[facility] DENTAL [address] [place] [address] Roxi Reagan DMD 04/17/2024 Orders Only GENERIC EXTERNAL DATA DEPARTMENT Provider, Generic External Data 04/16/2024 2:30 PM EST Office Visit [facility] [address] [place] [address] Anson De Leon MD Stage 3b chronic kidney disease (CMS/HCC) (Primary Dx); Type 2 diabetes mellitus with hyperglycemia, without long-term current use of insulin (CMS/HCC); Congestion of nasal sinus; Albuminuria 04/16/2024 Travel 04/16/2024 Telephone [facility] [address] [place] [address] Adeola Velásquez RN 04/15/2024 Orders Only GENERIC [...] [facility] [address] [place] [address] Harvinder Newberry 08/17/2024 9:00 AM EDT Office Visit [facility] [address] [place] [address] Martha Joyner MD [address] [place] [address] Health Maintenance Due Date Last Done Comments [...] use of insulin ([facility]) 2 O [place] - 1 [...] use of insulin ([facility]) LIPID PANEL, STANDARD Routine [...] EDT Narrative 06/26/2024 8:05 AM EDT ? [facility] ?[address] ?[place] [address] ? Ultrasound Report ? Signed ? Patient: Aaliyah Mendieta,Edd ?MR#: M ?? [id number] ? : 1980 ?Acct:[id number] ? Age/Sex: 44 / M ?ADM Date: 06/24/24 ? Loc: HO.US ? Attending Dr: Obey Mendoza MD ? Ordering Physician: Obey Mendoza MD ?? Date of Service: 06/24/24 ?? Procedure(s): US abdomen comp w elastography ?? Accession Number(s): [id number] ? cc: Obey Mendoza MD; Martha Joyner [...] MD in OV> ?06/26/24 0803 ? DD/ 0812 ? TD/TT: 06/24/24 0902 ? Senior Treasury Consultant: ? Procedure Note Donotuseinterpreter, Image - 06/26/[address] [address] Ultrasound Report Signed Patient: Donal Shaw#: M [id number] : 1980Acct:[id number] Age/Sex: 44 / MADM Date: 06/24/24 Loc: HO.US Attending Dr: Obey Mendoza MD Ordering Physician: Obey Mendoza MD Date of Service: 06/24/24 Procedure(s): US abdomen comp w elastography Accession Number(s): [id number] cc: Obey Mendoza MD; Martha Joyner MD [...] Ady Spear MD 06/26/2024 08:03 AM EDT RP Dictated By: Ady Spear MD Signed By: <Electronically signed by Ady Spear MD in OV> 06/26/24 08 DD/ 0812 TD/TT: 06/24/24 0902 Senior Treasury Consultant: [facility] External Provider IMG US PROCEDURES Edited Result - Final * XR Chest 2 Views (05/25/2024 1:52 PM EDT) Anatomical Region Laterality Modality Chest Radiographic Mary ging 05/25/2024 1:52 PM EDT Narrative 05/25/2024 1:54 PM EDT ? [facility] ?[address] ?[place] [address] ?XRay Report ? Signed ? Patient: Edd Shaw ?MR#: M ?? [id number] ? : 1980 ?Acct:[id number] ? Age/Sex: 43 / M ?ADM Date: 05/25/24 ? Loc: HO.XRAY ? Attending Dr: Obey Mendoza MD ? Ordering Physician: Obey Mendoza MD ?? Date of Service: 05/25/24 ?? Procedure(s): XR chest 2V ?? Accession Number(s): [id number] ? cc: Obey Mendoza MD; Martha Joyner [...] ?05/25/24 1353 ? DD/ 1352 ? TD/TT: 05/25/242 ? Senior Treasury Consultant: ? Procedure Note Ana M, Image - 05/25/[address] [address] XRay Report Signed Patient: Donal Shaw#: M [id number] : 1980Acct:[id number] Age/Sex: 43 / MADM Date: 05/25/24 Loc: HO.XRAY Attending Dr: Obey Mendoza MD Ordering Physician: Obey Mendoza MD Date of Service: 05/25/24 Procedure(s): XR chest 2V Accession Number(s): [id number] cc: Obey Mendoza MD; Martha Joyner MD [...] 05/25/24 1353 DD/ 1352 TD/TT: 05/25/24 1352 Senior Treasury Consultant: [facility] External Provider IMG XR PROCEDURES Final Result * Vitamin D, 25-Hydroxy, Total, Immunoassay (05/25/2024 6:30 AM EDT) Vitamin D 25-OH Total 67.5 >30 ng/mL [facility] Comment: Health Based Reference Values*< 20 ??ng/mL ??Xzjxrvanp43-60 ng/mL ??Insufficient> 30 ??ng/mL ??Sufficient*Chris MERINO. N [...] Final Result Performing Organization Address [facility] Co de Phone Number [facility] [address] [place] [phone] * (ABNORMAL) Vitamin B12 (Cobalamin) and Folate Panel, Serum (05/25/2024 6:30 AM EDT) Pathologist [facility] Vitamin B12 1,547(H) 200 - 900 pg/mL [facility] Comment:NORMAL 200-900 PG/ML INDETERMINATE 160-199 PG/ML DEFICIENT < 160 PG/ML Folate 10.6 > or = 4.0 ng/mL [facility] Comment:Reference Values:> o r [...] Final Result Performing Organization Address [facility] Co de Phone Number [facility] [address] [place] [phone] * TSH with Reflex to Free T4 (05/25/2024 6:30 AM EDT) TSH reflex Free T4 2.92 0.32 - 4.0 uIU/mL [facility] 05/25/2024 6:30 AM EDT 05/25/2024 6:30 AM EDT us Generic External Data Provider LAB BLOOD ORDERAB LES Final Result Performing Organization Address City/State/[facility] Co de Phone Number [facility] [address] [place] [phone] * CBC auto differential (05/25/2024 6:30 AM EDT) Pathologist [facility] White Blood Count 8.6 4.8 - 10.8 X10*3/uL [facility] Red Blood Count 5.79 4.60 - 5.80 X10*6/uL [facility] Hemoglobin 16.6 14.0 - 18.0 g/dl [facility] Hematocrit 49.1 42.0 - 52.0 % [facility] Mean Corpuscular Volume 84.8 80.0 - 98.0 fL [facility] Mean Corpuscular Hemoglobin 28.7 27.0 - 33.0 pg [facility] Mean Corpuscular HGB Conc 33.8 31.0 - 36.0 g/dl [facility] Red Cell Distribution Width 14.6 11.0 - 16.0 % [facility] Platelet Count 253 160 - 400 X10*3/uL [facility] Mean Platelet Volume 9.4 9.4 - 12.4 fL [facility] Neutrophils Percent Auto 58.2 45 - 73 % [facility] Imm Gran Pct Auto 0.3 0.0 - 0.4 % [facility] Lymphocytes Percent Auto 28.7 20 - 40 % [facility] Monocytes Percent Auto 8.2 2 - 11 % [facility] Eosinophils Percent Auto 3.8 0 - 4 % [facility] Basophils Percent Auto 0.8 0 - 2 % [facility] NRBC Pct Auto 0.0 0.0 - 0.2 /100WBC [facility] Neutrophils Absolute Auto 5.0 2.0 - 8.3 x10*3/uL [facility] Imm Gran Abs Auto 0.03 0.00 - 0.03 X10*3/uL [facility] Lymphocytes Absolute Auto 2.5 1.2 - 4.9 X10*3/uL [facility] Monocytes Absolute Auto 0.7 0.1 - 1.2 X10*3/uL [facility] Eosinophils Absolute Auto 0.3 0.0 - 0.4 X10*3/uL [facility] Basophils Absolute Auto 0.1 0.0 - 0.2 X10*3/uL [facility] NRBC Abs Auto 0.000 0.0 - 0.012 X10*3/uL [facility] 05/25/2024 6:30 AM EDT 05/25/2024 6:30 AM EDT Generic External Data Provider LAB BLOOD ORDERAB LES Final Result Performing Organization Address [facility]/ZIP Co de Phone Number [facility] [address] [place] [phone] * Iron And Total Iron Binding Capacity (05/25/2024 6:30 AM EDT) [facility] Iron 46 45 - 160 mcg/dL [facility] Total Iron Binding Capacity 279 228 - 428 mcg/dL [facility] Percent Iron Saturation 16 15 - 50 % [facility] Unsaturated Iron Binding 233 ug/dL [facility] 05/25/2024 6:30 AM EDT 05/25/2024 6:30 AM EDT us Generic External Data Provider LAB BLOOD ORDERAB LES Final Result Performing Organization Address [facility]/ZIP Co de Phone Number [facility] [address] [place] [phone] * (ABNORMAL) Insulin (05/25/2024 6:30 AM EDT) Insulin 43(H) 2 - 29 uU/mL [facility] Comment:This test was perfor [...] Final Result Performing Organization Address [facility] de Phone Number [facility] [address] [place] [phone] * Zinc (05/25/2024 6:30 AM EDT) Pathologist [facility] Zinc 76 60 - 130 mcg/dL [facility] Comment:This test was develo ped and its analytical performancecharacteristics have been determined by [employer] [place], [place]. It hasnot been cleared or approved by the U.S. Food and DrugAdministration. This assay has been validated pursuantto the CLIA regulations and is used for clinicalpurposes.THIS TEST WAS PERFORMED AT:[id number] [place] [address]MKDTEGHLAURY ELLIS MD,PHD 05/25/2024 6:30 AM EDT 05/25/2024 6:30 AM EDT Generic External Data Provider LAB BLOOD ORDERAB LES Final Result Performing Organization Address [facility] Co de Phone Number [facility] [address] [place] [phone] * Vitamin A (05/25/2024 6:30 AM EDT) Pathologist [facility] Vitamin A (Retinol) 74 38 - 98 mcg/dL [facility] Comment:Vitamin supplementat ion within 24 hours prior toblood draw may affect the accuracy of the results.This test was developed and its analytical performancecharacteristics have been determined by [employer] [place], [place]. It hasnot been cleared or approved by the U.S. Food and DrugAdministration. This assay has been validated pursuantto the CLIA regulations and is used for clinicalpurposes.THIS TEST WAS PERFORMED AT:[employer]/[place] [id number] [place] [address]OGNCYQKLAURY ELLIS MD,PHD 05/25/2024 6:30 AM EDT 05/25/2024 6:30 AM EDT Generic External Data Provider LAB BLOOD ORDERAB LES Final Result Performing Organization Address [facility]/ZIP Co de Phone Number [facility] [address] [place] [phone] * (ABNORMAL) C-reactive Protein (05/25/2024 6:30 AM EDT) C Reactive Protein 1.04(H) < or = 0.50 mg/dL [facility] 05/25/2024 6:30 AM EDT 05/25/2024 6:30 AM EDT Generic External Data Provider LAB BLOOD ORDERAB LES Final Result Performing Organization Address City/[facility]/ZIP Co de Phone Number [facility] [address] [place] [phone] * Vitamin B1 (05/25/2024 6:30 AM EDT) Vitamin B1 21 8 - 30 nmol/L [facility] Comment:Vitamin supplementat ion within 24 hours prior toblood draw may affect the accuracy of the results.This test was developed and its analytical performancecharacteristics have been determined by [employer] [place], [place]. It hasnot been cleared or approved by the U.S. Food and DrugAdministration. This assay has been validated pursuantto the CLIA regulations and is used for clinicalpurposes.THIS TEST WAS PERFORMED AT:[employer]/[place] [id number] [place] [address]RTNIFMCLAURY ELLIS MD,PHD 05/25/2024 6:30 AM EDT 05/25/2024 6:30 AM EDT us Generic External Data Provider LAB BLOOD ORDERAB LES Final Result [facility] [address] [place] [phone] * (ABNORMAL) Hemoglobin A1c (05/25/2024 6:30 AM EDT) Only the most recent of2 resultswithin the time period is included. Pathologist [facility] Hemoglobin A1c 6.2(H) <6.0 % [facility] Comment:Hemoglobin A1C Refer ence Range Adults: 4.8 - 6.0 % Non diabetic: < 6.0 % Goal: < 7.0 %Additional Action Suggested: > 8.0 %Note: Hemoglobin A1c results are invalid for patients with abnormal amounts of HbF. Blood transfusions may impact the HbA1c concentration in the patient sample. Estimated Average Glucose 131 mg/dL [facility] Comment:eAG = Estimated ave rage glucose which is %A1C expressed asaverage glucose, using the formula of the Z4C-BmveecgOixvrxw Glucose study (ADAG), Diabetes Care, Vol.31,#8,Oct. 2007 05/25/2024 6:30 AM EDT 05/25/2024 6:30 AM EDT Generic External Data Provider LAB BLOOD ORDERAB LES Final Result [facility] [address] [place] [phone] * Ferritin (05/25/2024 6:30 AM EDT) Ferritin 70 20 - 250 ng/mL [facility] 05/25/2024 6:30 AM EDT 05/25/2024 6:30 AM EDT Generic External Data Provider LAB BLOOD ORDERAB LES Final Result Performing Organization Address [facility] Co de Phone Number [facility] [address] [place] [phone] [phone] * (ABNORMAL) Lipid Panel, Standard (05/25/2024 6:30 AM EDT) Only the most recent of2 resultswithin the time period is included. Triglycerides 120 <150 mg/dL [facility] Comment:Desirable Triglyceri de: less than 150 mg/dLBorderline High Triglyceride 150-199 mg/dLHigh Triglyceride: 200-499 mg/dLVery High Triglyceride: greater than or equal to 5OO mg/dL Cholesterol 139 <200 mg/dL [facility] Comment:Desirable Cholestero l: less than 200 mg/dLBorderline High Cholesterol: 200-239 mg/dLHigh Cholesterol: greater than 239 mg/dL LDL Cholesterol Calculated 80 <100 mg/dL [facility] Comment:Desirable LDL: less than 100 mg/dLNear Optimal/Above Optimal LDL: 110- 129 mg/dLBorderline High LDL: 130-159 mg/dLHigh LDL: 160-189 mg/dLVery High LDL: greater than or equal to 190 mg/dL HDL Cholesterol 35(L) >40 mg/dL [facility] Comment:Desirable HDL: great er than 40 mg/dL Note: This HDL assay may give artificially low results in patients with liver disease. 05/25/2024 6:30 AM EDT 05/25/2024 6:30 AM EDT us Generic External Data Provider LAB BLOOD ORDERAB LES Final Result Performing Organization Address City/[facility]/ZIP Co de Phone Number [facility] [address] [place] [phone] * (ABNORMAL) Comprehensive Metabolic Panel (05/25/2024 6:30 AM EDT) Sodium 141 135 - 145 mmol/L [facility] Potassium 4.7 3.3 - 5.1 mmol/L [facility] Chloride 111(H) 96 - 108 mmol/L [facility] Carbon Dioxide 23 22 - 29 mmol/L [facility] Anion Gap 12 12 - 20 [facility] Urea Nitrogen (BUN) 26(H) 9 - 16 mg/dL [facility] Creatinine, Serum 1.31 0.5 - 1.4 mg/dL [facility] Estimated Glomerular Filt Rate 59 [facility] Comment:Chronic Kidney Disea se: Estimated GFR < 60 mL/min/1.33x6Apptcx Kidney Disease: Estimated GFR < 15 mL/min/1.73m2 Glucose 123(H) 60 - 115 mg/dL [facility] Calcium 9.2 8.4 - 10.2 mg/dL [facility] Bilirubin, Total 0.3 0.0 - 1.0 mg/dL [facility] Aspartate Amino Transferase 29 5 - 37 U/L [facility] Alanine Aminotransferase 29 0 - 40 U/L [facility] Total Protein 7.2 6.5 - 8.0 g/dL [facility] Albumin Level 3.6 3.5 - 5.0 g/dL [facility] Alkaline Phosphatase 66 39 - 117 U/L [facility] 05/25/2024 6:30 AM EDT 05/25/2024 6:30 AM EDT us Generic External Data Provider LAB BLOOD ORDERAB LES Final Result [facility] [address] [place] [phone] * POCT Glucose (05/18/2024 9:21 AM EDT) Only the most recent of2 resultswithin the time period is included. Glucose Blood, POC 124 60 - 200 mg/dL QC Media Lot # [id number] Lot# Expiration Date 73, Blood Capillary blood specimen / Unknown 05/18/2024 9:21 AM EDT Result [facility] Adriane Schultz MD POINT OF CARE TEST ENTER/EDIT OR DERABLES Final Result * (ABNORMAL) Glucose, Whole Blood (04/17/2024 8:10 AM EST) [facility] Glucose, Whole Blood 119(H) 60 - 115 mg/dL [facility] Comment:METER #: [id number] Testing performed in the Endocrinology Department [address] , [address], [facility]. 04/17/2024 8:10 AM EST 04/17/2024 8:13 AM EST Result [facility] Generic External Data Provider LAB BLOOD ORDERAB LES Final Result Performing Organization Address City/State/[facility] Co de Phone Number [facility] [address] [place] [phone] * POCT Rapid Covid-19 BinaxNOW (04/16/2024 3:14 PM EST) [facility] Rapid COVID Ag Negative QC Media Lot # [id number] Lot# Expiration Date ,026 Swab 04/16/2024 3:14 PM EST Result [facility] Anson Stapleton MD POINT OF CARE TEST ENTER/EDIT ORDERABLES Final Result * POCT Rapid Influenza B OSOM (04/16/2024 3:13 PM EST) [facility] Rapid Influenza B Ag Negative Negative, Indeterminate QC Media Lot # [id number] Lot# Expiration Date ,025 Swab 04/16/2024 3:13 PM EST Anson Stapleton MD POINT OF CARE TEST ENTER/EDIT ORDERABLES Final Result * POCT Rapid Influenza A OSOM (04/16/2024 3:13 PM EST) Rapid Influenza A Ag Negative Negative, Indeterminate QC Media Lot # [id number] Lot# Expiration Date ,103 Swab Nasopharyngeal structure / Unknown 04/16/2024 3:13 PM EST Anson Stapleton MD POINT OF CARE TEST ENTER/EDIT ORDERABLES Final Result * (ABNORMAL) Basic Metabolic Panel (04/15/2024 8:29 AM EST) Pathologist [facility] Sodium 139 135 - 145 mmol/L [facility] Potassium 4.6 3.3 - 5.1 mmol/L [facility] Chloride 105 96 - 108 mmol/L [facility] Carbon Dioxide 27 22 - 29 mmol/L [facility] Anion Gap 12 12 - 20 [facility] Urea Nitrogen (BUN) 34(H) 9 - 16 mg/dL [facility] Creatinine, Serum 1.69(H) 0.5 - 1.4 mg/dL [facility] Estimated Glomerular Filt Rate 44 [facility] Comment:Chronic Kidney Disea se: Estimated GFR < 60 mL/min/1.86g6Wdpmvb Kidney Disease: Estimated GFR < 15 mL/min/1.73m2 Glucose 117(H) 60 - 115 mg/dL [facility] Calcium 9.1 8.4 - 10.2 mg/dL [facility] 04/15/2024 8:29 AM EST 04/15/2024 8:29 AM EST us Generic External Data Provider LAB BLOOD ORDERAB LES Final Result [facility] [address] [place] [phone] * (ABNORMAL) Albumin, Random Urine W/Creatinine (04/15/2024 8:26 AM EST) Pathologist [facility] Creatinine, Urine 142.30 mg/dL [facility] Microalbumin Urine >2,000.0 mg/L H [facility] Microalbum Creatinine Ratio Ur 1,405.4(H ) <30 ug/mg cr [facility] Comment:Albumin/Creatinine R atio Reference Ranges: Normal: < 30 ug/mg creatinine Microalbuminuria: 30 - 300 ug/mg creatinineClinical Albuminuria: > 300 ug/mg creatinine 04/15/2024 8:26 AM EST 04/15/2024 9:32 AM EST us Generic External Data Provider LAB URINE ORDERAB LES Final Result Performing Organization Address [facility]/ZIP Co de Phone Number [facility] [address] [place] [phone] * Hepatitis C Ab (11/09/2022 9:00 AM EDT) Hepatitis C Antibody Nonreactive Nonreactive [facility] Comment:Antibodies to HCV no t detected; does not exclude early acuteHCV infection. Blood 11/09/2022 9:00 AM EDT 11/09/2022 2:35 PM EDT us Martha Joyner MD LAB BLOOD ORDERABLES Final Re sult Performing Organization Address [facility] Co de Phone Number [facility] [address] [place] [phone] * HIV 1/2 ANTIGEN/ANTIBODY,FOURTH GENERATION W/RFL (05/26/2021 9:29 AM EDT) HIV-1/2 ANTIGEN AND ANTIBODIES, 4TH GENERATION W/ REFLEX NON-REACT TABITHA NON-REACT TABITHA [facility] Comment: HIV-1 antigen and HIV-1/HIV-2 [...] ? For additional information please refer to http://education.[employer]/faq/WEL197 (This link is being provided for informational/ educational purposes only.) ? The performance of this assay has not been clinically validated in patients less than 2 years old. ?? 05/26/2021 9:29 AM EDT us Martha Joyner MD LAB BLOOD ORDERABLES Final Re sult [facility] [address] from Last 3 Months or Most Recently Relevant to Health Maintenance Insurance [facility] [employer] DENTAL - HSN PARTIAL (MEDICAID) Care Teams Grader Marker Relationship Specialty Start Date End Date Martha Joyner MD [address] [place] [phone] PCP - General Family Medicine 02/22/21 Endo C Nurse Practitioner Endocrinology 01/08/24
--- OUTSIDE RECORDS SUMMARY | 2024-07-13 08:07 | XMS_ITS | Encounter Summary ---
Author Organization [facility] Address [address] [address] Phone Care Team Providers Care Piping Drafter Name Role Phone Martha Joyner MD Primary Care Provider [phone] Encounter Details Date Type Department Care Team (Late st Contact Info) Description 06/29/2021 Documentation Only [facility] [address] [place] [address] Martha Joyner MD [address] [place] [address] [phone] Social History Tobacco Use Types Packs/Day Years [...] [facility] [address] [place] [address] Jose Guadalupe Coleman MD [address] [place] [address] [place] [phone] documented as of this encounter Visit Diagnoses Not on filedocumented in this encounter Care Teams Piping Drafter Relationship Specialty Start Date End Date Martha Joyner MD PCP - General Family Medicine 06/29/21 documented as of this encounter
--- OUTSIDE RECORDS SUMMARY | 2024-07-13 08:07 | XMS_ITS | Encounter Summary ---
Author Organization [employer] Address [address] [place] [address] Care Team Providers Care Hospital Security Officer Name Role Phone Martha Joyner MD Primary Care Provider [phone] Encounter Details Date Type Department Care Team (Late st Contact Info) Description 03/13/2023 Telephone [facility] MEDICINE [address] [place] [address] Martha Joyner MD [address] [place], [place] [phone] Social History Tobacco Use Types Packs/Day Years [...] indicated. Report faxed at this time to [phone] documented in this encounter Plan of Treatment Upcoming Encounters Date Type Department Care Team (Late st Contact Info) Description 07/17/2024 8:00 AM EDT Office Visit [facility] ADULT DENTAL [address] [place] [address] Harvinder Newberry 08/17/2024 9:00 AM EDT Office Visit [facility] MED & PEDS [address] [place] [address] Martha Joyner MD [address] [place] [address] documented as of this encounter Visit Diagnoses Not on filedocumented in this encounter Additional Health Concerns Assessment Noted Time PHQ-9 Depression Total Score: 1 02/15/20 22 4:00 PM EST documented as of this encounter Care Teams Hospital Security Officer Relationship Specialty Start Date End Date Martha Joyner MD [address] [place] [address] PCP - General Family Medicine 02/22/21 Endo [facility] Nurse Practitioner Endocrinology 01/08/24 documented as of this encounter
--- OUTSIDE RECORDS SUMMARY | 2024-07-13 08:07 | XMS_ITS | Encounter Summary ---
Author Organization [employer] Address [address] [place] [address] Care Team Providers Care Marker Machine Attendant Name Role Phone Martha Joyner MD Primary Care Provider Reason for Visit * Reason Onset Date Comments Med Refill 03/16/2024 Encounter Details Date Type Department Care Team (Late st Contact Info) Description 03/16/2024 Telephone [facility] MEDICINE [address] [place], [place] [phone] Martha Joyner MD [address] [place] [address] Med Refill Social History Tobacco Use Types [...] 6.25 MG tablet To be sent to: [facility] documented in this encounter Plan of Treatment Upcoming Encounters Date Type Department Care Team (Late st Contact Info) Description 07/17/2024 8:00 AM EDT Office Visit [facility] ADULT DENTAL [address] [place] [address] Harvinder Newberry 08/17/2024 9:00 AM EDT Office Visit [facility] MED & PEDS [address] [place] [address] Martha Joyner MD [address] [place] [address] documented as of this encounter Visit Diagnoses Not on filedocumented in this encounter Additional Health Concerns Assessment Noted Time PHQ-9 Depression Total Score: 19 024 3:19 PM EDT documented as of this encounter Care Teams Marker Machine Attendant Relationship Specialty Start Date End Date Martha Joyner MD [address] [place] [address] PCP - General Family Medicine 02/22/21 Endo [facility] Nurse Practitioner Endocrinology 01/08/24 documented as of this encounter
--- OUTSIDE RECORDS SUMMARY | 2024-07-13 08:07 | XMS_ITS | Encounter Summary ---
Author Organization [employer] Address [address] [place] [address] Care Team Providers Care Professional Sports Scout Name Role Phone Martha Joyner MD Primary Care Provider [phone] Reason for Visit * Reason Comments Med Refill Encounter Details Date Type Department Care Team ([facility] Contact Info) Description 01/03/2023 Refill [facility] MED & PEDS [address] [place], [place] [phone] Tereza Wagner MD [address] [place] [address] Social History Tobacco Use Types Packs/Day Years [...] [facility] [address] [place] [address] Harvinder Newberry 08/17/2024 9:00 AM EDT Office Visit [facility] MED & PEDS [address] [place] [address] Martha Joyner MD [address] [place] [address] documented as of this encounter Visit Diagnoses Not on filedocumented in this encounter Additional Health Concerns Assessment Noted Time PHQ-9 Depression Total Score: 1 02/15/20 22 4:00 PM EST documented as of this encounter Care Teams Professional Sports Scout Relationship Specialty Start Date End Date Martha Joyner MD [address] [place] [address] PCP - General Family Medicine 02/22/21 Endo [facility] Nurse Practitioner Endocrinology 01/08/24 documented as of this encounter
--- OUTSIDE RECORDS SUMMARY | 2024-07-13 08:07 | XMS_ITS | Encounter Summary ---
Author Organization [facility] Address [address] [address] Phone Care Team Providers Care Survey Operations Director Name Role Phone Martha Joyner MD Primary Care Provider [phone] Encounter Details Date Type Department Care Team (Late st Contact Info) Description 06/29/2021 Documentation Only [facility] [address] [place] [address] Martha Joyner MD [address] [place] [phone] Social History Tobacco Use Types Packs/Day Years [...] Visit [facility] [address] [place] [address] Jose Guadalupe Coleman MD [address] [place] [address] [place] [phone] documented as of this encounter Visit Diagnoses Not on filedocumented in this encounter Care Teams Survey Operations Director Relationship Specialty Start Date End Date Martha Joyner MD PCP - General Family Medicine 06/29/21 documented as of this encounter
--- OUTSIDE RECORDS SUMMARY | 2024-07-13 08:07 | XMS_ITS | Clinical Summary ---
Author Organization [facility] [place], Address [address] [place] [address] [place] [address] Phone Care Team Providers Care Ceramic Plater Name Role Phone Martha Joyner MD Primary Care Provider [phone] Allergies Active Allergy Reactions Criticality Noted Date [...] UNTIL FINISHED 05/08/19 23 Active TechLite Pen Midway 31G X 5 MM [facility] USE DAILY WITH INSULIN 04/13/19 23 Active [...] Visit [facility] [address] [place] [place] [address] Jose Guadalupe Coleman MD Stage 3a chronic kidney disease (HCC) (Primary Dx); Hypertension; Diabetes mellitus without mention of complication, type II or unspecified type, uncontrolled (HCC); Persistent proteinuria 04/30/2024 Orders Only [facility] [place] [address] Jose Guadalupe Coleman MD 04/28/2024 Office Communication [facility] [address] [place] [place] [address] Tatianna Lao from Last 3 Months Social [...] Visit [facility] [place], [address] [place] [address] Jose Guadalupe Coleman MD [address] [place] [address] Health Maintenance Due Date Last [...] Urine 0-5 0 - 5 /hpf [facility] RBC, Urine 0-2 0 - 2 /hpf [facility] Squamous Epithelial, Urine None seen 0 - 10 /hpf [facility] Casts None seen None seen /lpf [facility] Bacteria, Urine None seen None seen/Few [facility] 04/30/2024 7:23 AM EST 04/30/2024 Jose Guadalupe Coleman MD LAB MICROBIOLOGY - GENERAL ORDERABLES Final Result Performing Organization Address City/[facility]/ZIP Co de Phone Number [facility] [address] [place] [address] * (ABNORMAL) Protein, Total, Random Urine w/Creatinine (Protein/Creat Ratio) (04/30/2024 7:23 AM EST) Pathologist [facility] Creatinine, Ur 169.1 Not Estab. mg/dL [facility] Protein, Ur 454.4 Not Estab. mg/dL [facility] Comment: Results confirmed on dilution. Urine Protein/Creati nine Ratio 2,687(H) 0 - 200 mg/g creat [facility] 04/30/2024 7:23 AM EST 04/30/2024 Jose Guadalupe Coleman MD LAB URINE ORDERABLES Final Result Performing Organization Address City/[facility]/ZIP Co de Phone Number [facility] [address] [place] [address] * (ABNORMAL) Urinalysis with microscopic (04/30/2024 7:23 AM EST) Specific [place], Urine 1.029 1.005 - 1.030 [facility] [phone] pH Urine 6.0 5.0 - 7.5 [facility] [phone] Color, Urine Yellow Yellow [facility] Appearance Urine Clear Clear [facility] WBC Esterase Urine Negative Negative [facility] Protein, Ur 3+(A) Negative/Tra ce [facility] Glucose, Ur 3+(A) Negative [facility] Ketones, Urine Negative Negative [facility] Blood Urine Negative Negative [facility] Bilirubin Urine Negative Negative [facility] Urobilinogen Urine 0.2 0.2 - 1.0 mg/dL [facility] Nitrite, Urine Negative Negative [facility] Microscopic Examination See below: [facility] Comment:Microscopic was gloria cated and was performed. 04/30/2024 7:23 AM EST 04/30/2024 us Jose Guadalupe Coleman MD LAB URINE ORDERABLES Final Result [facility] [address] [place] [address] * (ABNORMAL) Renal Function Panel (04/30/2024 7:23 AM EST) Glucose 125(H) 70 - 99 mg/dL [facility] BUN 21 6 - 24 mg/dL [facility] Creatinine 1.49(H) 0.76 - 1.27 mg/dL [facility] eGFR CKD-EPI CR 2020 59(L) >59 mL/min/1.7 3 [facility] BUN/Creatinine Ratio 14 9 - 20 [facility] Sodium 139 134 - 144 mmol/L [facility] Potassium 4.4 3.5 - 5.2 mmol/L [facility] Chloride 104 96 - 106 mmol/L [facility] Bicarbonate (CO2) 20 20 - 29 mmol/L [facility] Calcium 9.2 8.7 - 10.2 mg/dL [facility] Albumin 3.8(L) 4.1 - 5.1 g/dL [facility] Phosphorus 3.6 2.8 - 4.1 mg/dL [facility] 04/30/2024 7:23 AM EST 04/30/2024 Jose Guadalupe Coleman MD LAB BLOOD ORDERABLES Final Result [facility] [address] [place] [address] from Last 3 Months Insurance [facility] Plan ([id number]) Care Teams Ceramic Plater Relationship Specialty Start Date End Date Martha Joyner MD PCP - General Family Medicine 06/29/21
--- OUTSIDE RECORDS SUMMARY | 2024-07-13 08:07 | XMS_ITS | Encounter Summary ---
Author Organization [employer] Address [address] [place] [address] Care Team Providers Care Construction Management Instructor Name Role Phone Martha Joyner MD Primary Care Provider Reason for Visit * Reason Comments Med Refill Encounter Details Date Type Department Care Team ([facility] st Contact Info) Description 05/30/2023 Refill [facility] MED & PEDS [address] [place], [place] [phone] Martha Joyner MD [address] [place] [address] Primary hypertension Social History Tobacco Use Types [...] [facility] AD[facility] [address] [place] [address] Harvinder Newberry 08/17/2024 9:00 AM EDT Office Visit [facility] MED & PEDS [address] [place] [address] Martha Joyner MD [address] [place] [address] documented as of this encounter Visit Diagnoses Diagnosis Primary hypertension Unspecified essential hypertension documented in this encounter Additional Health Concerns Assessment Noted Time PHQ-9 Depression Total Score: 1 02/15/20 22 4:00 PM EST documented as of this encounter Care Teams Construction Management Instructor Relationship Specialty Start Date End Date Martha Joyner MD [address] [place] [address] PCP - General Family Medicine 02/22/21 [facility] Nurse Practitioner Endocrinology 01/08/24 documented as of this encounter
--- OUTSIDE RECORDS SUMMARY | 2024-07-13 08:07 | XMS_ITS | Encounter Summary ---
Author Organization [employer] Address [address] [place] [address] Care Team Providers Care Operating Systems Programmer Name Role Phone Martha Joyner MD Primary Care Provider [phone] Encounter Details Date Type Department Care Team ([facility] st Contact Info) Description 05/01/[address] [facility] CHC MED & PEDS [address] [place], [place] [phone] Martha Joyner MD [address] [place], [place] [phone] Social History Tobacco Use Types Packs/Day Years [...] Description 07/17/2024 8:00 AM EDT Office Visit [facility] ADULT DENTAL [address] [place] [address] Harvinder Newberry 08/17/2024 9:00 AM EDT Office Visit [facility] MED & PEDS [address] [place] [address] Martha Joyner MD [address] [place] [address] documented as of this encounter Visit Diagnoses Not on filedocumented in this encounter Additional Health Concerns Assessment Noted Time PHQ-9 Depression Total Score: 1 02/15/20 22 4:00 PM EST documented as of this encounter Care Teams Operating Systems Programmer Relationship Specialty Start Date End Date Martha Joyner MD [address] [place] [address] PCP - General Family Medicine 02/22/21 [facility] Nurse Practitioner Endocrinology 01/08/24 documented as of this encounter
--- OUTSIDE RECORDS SUMMARY | 2024-07-13 08:07 | XMS_ITS | Encounter Summary ---
Author Organization [employer] Address [address] [place] [address] Care Team Providers Care First Breaker Feeder Name Role Phone Martha Joyner MD Primary Care Provider [phone] Reason for Visit * Reason Onset Date Comments Nurse Triage 11/20/2023 Encounter Details Date Type Department Care Team ([facility] st Contact Info) Description 11/20/[address] [facility] MEDICINE [address] [place], [place] [phone] Martha Joyner MD [address] [place] [address] Nurse Triage Social History Tobacco Use Types [...] didn't answer. Left voice message to call [facility] triage line at [phone] [phone]. * Telephone Encounter - Rangel Razo [...] Visit [facility] ADULT DENTAL [address] [place] [address] Harvinder Newberry 08/17/2024 9:00 AM EDT Office Visit [facility] MED & PEDS [address] [place] [address] Martha Joyner MD [address] [place] [address] documented as of this encounter Visit Diagnoses Not on filedocumented in this encounter Additional Health Concerns Assessment Noted Time PHQ-9 Depression Total Score: 19 024 3:19 PM EDT documented as of this encounter Care Teams First Breaker Feeder Relationship Specialty Start Date End Date Martha Joyner MD [address] [place] [address] PCP - General Family Medicine 02/22/21 [facility] Nurse Practitioner Endocrinology 01/08/24 documented as of this encounter
[2024-07-13 08:15] LABS: Glucose, Whole Blood 113 mg/dL (60-115)
== END 2024-07-13 08:37 | disposition home or self-care (01) ==
LOC: HO.ENCR 08:03
PROVIDERS: PCP Family Medicine; Visit Provider Physician Assistant
DX: E11.29 Type 2 diabetes mellitus with other diabetic kidney complication (principal); R80.9 Proteinuria, unspecified; N18.30 Chronic kidney disease, stage 3 unspecified; I10 Essential (primary) hypertension

== ENCOUNTER → 2024-07-13 08:02 | Outpatient (BNVA) | payer OTHER, SELFPAY | PROVIDERS: PCP Family Medicine; Visit Provider Physician Assistant | DX: E11.29 Type 2 diabetes mellitus with other diabetic kidney complication (principal); R80.9 Proteinuria, unspecified; E11.22 Type 2 diabetes mellitus with diabetic chronic kidney disease; I12.9 Hypertensive chronic kidney disease with stage 1 through stage 4 chronic kidney disease, or unspecified chronic kidney disease; N18.30 Chronic kidney disease, stage 3 unspecified; Z79.84 Long term (current) use of oral hypoglycemic drugs; Z79.899 Other long term (current) drug therapy | CPT/HCPCS: 82947; 99212 ==

== ENCOUNTER 2024-07-23 08:13 | Outpatient (AMB) | payer OTHER, SELFPAY ==
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
--- OUTSIDE RECORDS SUMMARY | 2024-07-23 08:22 | XMS_ITS | Encounter Summary ---
Author Organization [employer] Address [address] [place] [address] Care Team Providers Care Manager Of Procurement Name Role Phone Martha Joyner MD Primary Care Provider [phone] Reason for Visit * Reason Comments Med Refill Encounter Details Date Type Department Care Team ([facility] Contact Info) Description 01/03/2023 Refill [facility] CHC MED & PEDS [address] [place], [place] [phone] Tereza Wagner MD [address] [place] [address] Social History Tobacco Use Types Packs/Day Years [...] Care Team (Late st Contact Info) Description 08/17/2024 9:00 AM EDT Office Visit [facility] MED [facility] PED[facility] [address] [place] [address] Martha Joyner MD [address] [place] [address] 01/19/2025 8:00 AM EST Office Visit [facility] ADULT [facility] [address] [place] [address] Harvinder Newberry documented as of this encounter Visit Diagnoses Not on filedocumented in this encounter Additional Health Concerns Assessment Noted Time PHQ-9 Depression Total Score: 1 02/15/20 22 4:00 PM EST documented as of this encounter Care Teams Manager Of Procurement Relationship Specialty Start Date End Date Martha Joyner MD [address] [place] [id number] PCP - General Family Medicine 02/22/21 [facility] Nurse Practitioner Endocrinology 01/08/24 documented as of this encounter
--- OUTSIDE RECORDS SUMMARY | 2024-07-23 08:22 | XMS_ITS | Encounter Summary ---
Author Organization [employer] Address [address] [place] [address] Care Team Providers Care Crabbing Machine Operator Name Role Phone Martha Joyner MD Primary Care Provider [phone] Reason for Visit * Reason Onset Date Comments Nurse Triage 11/20/2023 Encounter Details Date Type Department Care Team ([facility] st Contact Info) Description 11/20/2023 Telephone [facility] MEDICINE [address] [place], [place] [phone] Martha Joyner MD [address] [place] [address] Nurse Triage Social History Tobacco Use Types [...] to call [facility] triage line at [phone] [phone]. * Telephone Encounter - Rangel Razo [...] Description 08/17/2024 9:00 AM EDT Office Visit [facility] ED MED & PEDS [address] [place] [address] Martha Joyner MD [address] [place] [address] 01/19/2025 8:00 AM EST Office Visit [facility] ED ADULT DENTAL [address] [place] [address] Harvinder Newberry documented as of this encounter Visit Diagnoses Not on filedocumented in this encounter Additional Health Concerns Assessment Noted Time PHQ-9 Depression Total Score: 19 024 3:19 PM EDT documented as of this encounter Care Teams Crabbing Machine Operator Relationship Specialty Start Date End Date Martha Joyner MD [address] [place] [address] PCP - General Family Medicine 02/22/21 [facility] Nurse Practitioner Endocrinology 01/08/24 documented as of this encounter
--- OUTSIDE RECORDS SUMMARY | 2024-07-23 08:22 | XMS_ITS | Clinical Summary ---
Author Organization [facility], Address [address] [place] [address] [place] [address] Phone Care Team Providers Care Complaint Inspector Name Role Phone Martha Joyner MD Primary Care Provider [phone] Allergies Active Allergy Reactions Criticality Noted Date [...] SIX TABLETS IN 24 HOURS 3 Active amoxicillin-clav ulanate (AUGMENTIN) 875-125 MG per tablet TAKE ONE TABLET BY MOUTH TWICE DAILY UNTIL FINISHED 3 Active TechLite Pen [place] 31G X 5 MM [facility] USE DAILY WITH INSULIN 3 Active Mounjaro 2.5 MG/0.5ML solution pen-injector Inject 12.5 mg under the skin per week 3 Active carvedilol (COREG) 12.5 MG tablet TAKE ONE TABLET IN THE MORNING AND EVENING WITH FOOD 3 Active Continuous Blood Gluc Sensor (FreeStyle Jeannette 3 Sensor) [facility] USE DIRECTED TO TEST BLOOD SUGAR CHANGE EVERY 14 DAYS 3 Active Proctozone-HC 2.5 % cream INSERT RECTALLY TWICE DAILY 3 Active meclizine (ANTIVERT) 25 MG tablet TAKE ONE TABLET THREE TIMES DAILY IN THE MORNING, AT NOON, AND AT BEDTIME NEEDED FOR DIZZINESS 3 Active Dapagliflozin Propanediol (Farxiga) 10 MG tablet Take 10 mg by mouth 1 (one) time each day in the morning Active Active Problems Problem Noted Date Diagnosed [...] Visit [facility] [address] [place] [address] Jose Guadalupe Coleman MD Stage 3a chronic kidney disease (HCC) (Primary Dx); Hypertension; Diabetes mellitus without mention of complication, type II or unspecified type, uncontrolled (HCC); Persistent proteinuria 04/30/2024 Orders Only [facility] [place] [address] Jose Guadalupe Coleman MD 04/28/2024 Office Communication [facility] [address] [place] [address] Tatianna Lao from Last 3 Months Social [...] Visit [facility] [address] [place] [address] Jose Guadalupe Coleman MD [address] [place] [address] Health Maintenance Due Date Last Done [...] Urine 0-5 0 - 5 /hpf [facility] RBC, Urine 0-2 0 - 2 /hpf [facility] Squamous Epithelial, Urine None seen 0 - 10 /hpf [facility] Casts None seen None seen /lpf [facility] Bacteria, Urine None seen None seen/Few [facility] 04/30/2024 7:23 AM EST 04/30/2024 Jose Guadalupe Coleman MD LAB MICROBIOLOGY - GENERAL ORDERABLES Final Result Performing Organization Address [facility]/ZIP Co de Phone Number [employer] [facility] [address] [place] [address] * (ABNORMAL) Protein, Total, Random Urine w/Creatinine (Protein/Creat Ratio) (04/30/2024 7:23 AM EST) Creatinine, Ur 169.1 Not Estab. mg/dL [facility] Protein, Ur 454.4 Not Estab. mg/dL [facility] Comment: Results confirmed on dilution. Urine Protein/Creati nine Ratio 2,687(H) 0 - 200 mg/g creat [facility] 04/30/2024 7:23 AM EST 04/30/2024 Jose Guadalupe Coleman MD LAB URINE ORDERABLES Final Result Performing Organization Address [facility] de Phone Number [facility] [address] [place] [address] * (ABNORMAL) Urinalysis with microscopic (04/30/2024 7:23 AM EST) Specific [place], Urine 1.029 1.005 - 1.030 [facility] pH Urine 6.0 5.0 - 7.5 [facility] [phone] Color, Urine Yellow Yellow [facility] [phone] Appearance Urine Clear Clear [facility] [phone] WBC Esterase Urine Negative Negative [facility] Protein, Ur 3+(A) Negative/Tra ce [facility] [phone] Glucose, Ur 3+(A) Negative [facility] Ketones, Urine Negative Negative [facility] Blood Urine Negative Negative [facility] [phone] Bilirubin Urine Negative Negative [facility] [phone] Urobilinogen Urine 0.2 0.2 - 1.0 mg/dL [facility] [phone] Nitrite, Urine Negative Negative [facility] Microscopic Examination See below: [facility] Comment:Microscopic was gloria cated and was performed. 04/30/2024 7:23 AM EST 04/30/2024 us Jose Guadalupe Coleman MD LAB URINE ORDERABLES Final Result [facility] [address] [place] [address] * (ABNORMAL) Renal Function Panel (04/30/2024 7:23 AM EST) Glucose 125(H) 70 - 99 mg/dL [facility] BUN 21 6 - 24 mg/dL [facility] Creatinine 1.49(H) 0.76 - 1.27 mg/dL [facility] eGFR CKD-EPI CR 2020 59(L) >59 mL/min/1.7 3 [facility] BUN/Creatinine Ratio 14 9 - 20 [facility] Sodium 139 134 - 144 mmol/L [facility] Potassium 4.4 3.5 - 5.2 mmol/L [facility] Chloride 104 96 - 106 mmol/L [facility] Bicarbonate (CO2) 20 20 - 29 mmol/L [facility] Calcium 9.2 8.7 - 10.2 mg/dL [facility] Albumin 3.8(L) 4.1 - 5.1 g/dL [facility] Phosphorus 3.6 2.8 - 4.1 mg/dL [facility] 04/30/2024 7:23 AM EST 04/30/2024 Jose Guadalupe Coleman MD LAB BLOOD ORDERABLES Final Result [facility] [address] [place] [address] from Last 3 Months Insurance [facility] Plan ([id number]) Care Teams Complaint Inspector Relationship Specialty Start Date End Date Martha Joyner MD PCP - General Family Medicine 06/29/21
--- OUTSIDE RECORDS SUMMARY | 2024-07-23 08:22 | XMS_ITS | Encounter Summary ---
Author Organization [facility] Address [address] [address] Phone Care Team Providers Care Core Java Engineer Name Role Phone Martha Joyner MD Primary Care Provider [phone] Encounter Details Date Type Department Care Team (Late st Contact Info) Description 06/29/2021 Documentation Only [facility] [address] [place] [address] Martha Joyner MD [address] [place] [phone] Social History Tobacco Use Types Packs/Day Years [...] Visit [facility] [address] [place] [address] Jose Guadalupe Coleman MD [address] [place] [address] [place] [id number] documented as of this encounter Visit Diagnoses Not on filedocumented in this encounter Care Teams Core Java Engineer Relationship Specialty Start Date End Date Martha Joyner MD PCP - General Family Medicine 06/29/21 documented as of this encounter
--- OUTSIDE RECORDS SUMMARY | 2024-07-23 08:22 | XMS_ITS | Encounter Summary ---
Author Organization [employer] Address [address] [place] [address] Care Team Providers Care Head Of Digital Name Role Phone Martha Joyner MD Primary Care Provider [phone] Reason for Visit * Reason Comments Med Refill Encounter Details Date Type Department Care Team ([facility] Contact Info) Description 10/15/2022 Refill [facility] CHC MED & PEDS [address] [place] [address] Martha Joyner MD [address] [place] [address] Type 2 diabetes mellitus with hyperglycemia, without long-term current use of insulin ([facility]) Social History Tobacco Use Types [...] Department Care Team (Late Contact Info) Description 08/17/2024 9:00 AM EDT Office Visit [facility] CHC MED & PEDS [address] [place] [address] Martha Joyner MD [address] [place] [address] 01/19/2025 8:00 AM EST Office Visit [facility] ADULT DENT[facility] [address] [place] [address] Harvinder Newberry documented as of this encounter Visit Diagnoses Diagnosis Type 2 diabetes mellitus with hyperglycemia, without long-term current use of insulin ([facility]) documented in this encounter Additional Health Concerns Assessment Noted Time PHQ-9 Depression Total Score: 1 02/15/20 22 4:00 PM EST documented as of this encounter Care Teams Head Of Digital Relationship Specialty Start Date End Date Martha Joyner MD [address] [place] [address] PCP - General Family Medicine 02/22/21 [facility] Nurse Practitioner Endocrinology 01/08/24 documented as of this encounter
--- OUTSIDE RECORDS SUMMARY | 2024-07-23 08:22 | XMS_ITS | Clinical Summary ---
Author Organization [employer] Address [address] [place] [address] Care Team Providers Care Optimization Engineer Name Role Phone Martha Joyner MD Primary Care Provider [phone] Allergies No known active allergies Medications * [...] tablet 11 025 2025 Active Continuous Glucose Bilingual Sales Assistant (FreeStyle Jeannette 3 Grant) deviceIndicatio ns:Type 2 diabetes mellitus with hyperglycemia, without long-term current use of insulin ([facility]) 1 each Once per day. Use as directed for CGM 1 each 025 Active Continuous Glucose Sensor (FreeStyle Jeannette 3 Plus Sensor) miscIndications :Type 2 diabetes mellitus with hyperglycemia, without long-term current use of insulin ([facility]) 1 each every 15 days. Apply 1 [...] PTSD (post-traumatic stress disorder) 09/12/2023 Fractured dental catholic with loss of materi al 07/31/2023 JERRY [...] Glu = 109 Patient is managed by [facility] end[facility]. His DM2 is trending in the [...] levels. Continue taking mounjaro as perscribed by airport control operator. Will montior and lower metformin as needed. [...] elevated a1c of 10.7% and glucoe of [facility]. No measuring his glucose at home, will [...] Encounters Date Type Department Care Team Description 07/17/2024 8:00 AM EDT Office Visit [facility] ADULT DENTAL [address] [place] [address] Harvinder Newberry Dental calculus (Primary Dx) 07/13/2024 Orders Only GENERIC EXTERNAL DATA DEPARTMENT Provider, Generic External Data 07/02/2024 Refill [facility] MED & PEDS [address] [place] [address] Martha Joyner MD Ear itch 06/07/2024 Refill [facility] [address] [place] [address] Martha Joyner MD Type 2 diabetes mellitus with hyperglycemia, without long-term current use of insulin ([facility]) 05/26/2024 Travel 05/25/2024 Orders Only GENERIC EXTERNAL DATA DEPARTMENT Provider, Generic External Data 05/18/2024 8:30 AM EDT Office Visit [facility] MED [facility] PEDS [address] [place] [address] Adrinae Schultz MD Type 2 diabetes mellitus with hyperglycemia, without long-term current use of insulin ([facility]) (Primary Dx); Hypoglycemic episode in patient with diabetes mellitus ([facility]); Primary hypertension; Plantar fasciitis 05/18/2024 Telephone [facility] MED & PEDS [address] [place] [address] Martha Joyner MD Change PCP 05/18/2024 Travel 05/06/2024 Telephone [facility] PEDS [address] [place] [address] Martha Joyner MD 05/04/2024 Telephone [facility] MEDICINE [address] [place] [address] Martha Joyner MD Nurse Triage from Last 3 Months Immunizations Immunization Administration Dates Next Due Tdap 04/10/2021 Social [...] your housing situation today? I have volodymyr caledron 07/26/[address] you li [...] Sign Reading Time Taken Comments Blood Pressure 110/62 07/17/2024 8:05 AM EDT Pulse 65 07/17/2024 8:05 AM EDT Temperature 36.8 ??C (98.3 ??F) [...] Description 08/17/2024 9:00 AM EDT Office Visit [facility] MED [facility] PEDS [address] [place] [address] Martha Joyner MD [address] [place] [address] 01/19/2025 8:00 AM EST Office Visit [facility] ADULT DENTAL [address] [place] [address] Harvinder Newberry Health Maintenance Due Date Last Done Comments Anal Pap 1979 CT Colonography 1979 Colonoscopy 1979 Colorectal Cancer Screening 1979 FIT DNA/Cologuard 1979 FIT 1979 FOBT 1979 Sigmoidoscopy 1979 Disability Screening 1979 Diabetes: Foot Exam 06/13/1989 Alcohol/Substance Use Screening 1991 Family Planning (PISQ) 06/13/1994 Hepatitis A Vaccines (1 of 2 - Risk 2-dose series) 06/13/1998 Hepatitis B Vaccines (1 of 3 - 19+ 3-dose series) 06/13/1998 COVID-19 Vaccine ( season) 2023 02/21/2022, 08/03/2021 SDOH Screening 07/25/2024 07/26/2023 Influenza Vaccine (#1) 2024 Postp oned from 11/03/2023 (Patient Refused) Depression Screening 09/11/2024 09/12/2023, 09/12/19 Diabetes: Hemoglobin A1C 11/25/2024 025, 04/15/2024, 08/05/2023, Additional history exists Pneumococcal Vaccine: Pediatrics (0 to 5 Years) and At-Risk Patients (6 to 49) Years) (1 of 2 - PCV) 01/07/2025 Postponed from 06/13/1998 (Patient Refused) Dental Oral Exam 01/18/2025 07/17/2024, 02/13/2024 Dental Prophylaxis 01/18/2025 07/17/2024, 01/20/2024 Dental X-Ray: Bitewings 01/20/2025 01/20/2024, 10/02 Diabetes: Urine Protein Screening 04/15/2025 04/15/2024, 11/09/2022, 05/18/2022, Additional history exists Lipid Panel 05/25/2025 05/25/2024, 04/04, 11/09/2022, Additional history exists Tobacco Screening 07/17/2025 07/17/2024 Eye Exam 11/18/2025 11/19/2023 Dental X-Ray: Full [...] patient's age to complete this topic Meningococcal B Vaccine Aged Out No l onger eligible based on patient's age to complete [...] Procedure Name Priority Date/Time Associated Diagnosis Comments PERIODIC ORAL EVALUATION - ESTABLISHED PATIENT Routine 07/17/2024 8:00 AM EDT ORAL HYGIENE INSTRUCTIONS Routine 07/17/2024 8:00 AM EDT Full PROPHYLAXIS - ADULT Routine 07/17/2024 8:00 AM EDT CASE PRESENTATION, DETAILED AND EXTENSIVE TREATMENT PLANNING Routine 07/17/2024 8:00 AM EDT GLUCOSE, WHOLE BLOOD Routine 07/13/2024 8:11 AM EDT US ABDOMEN COMPLETE WITH ELASTOGRAPHY Routine 06/24/2024 [...] insulin (CMS/HCC) ALBUMIN, RANDOM URINE W/CREATININE Routine 04/15/2024 8:26 AM EST PANORAMIC RADIOGRAPHIC IMAGE Routine 02/13/2024 11:30 AM EST INTRAORAL - COMPLETE SERIES OF RADIOGRAPHIC IMAGES Routine 01/20/2024 3:00 PM EST HEPATITIS C ANTIBODY Routine 11/09/2022 9:00 AM EDT Type 2 diabetes mellitus with hyperglycemia, without long-term current use of insulin (CMS/HCC) HIV 1/2 ANTIGEN/ANTIBODY, FOURTH GENERATION W/RFL Routine 05/26/2021 9:29 AM EDT from Last 3 Months or Most Recently Relevant to Health Maintenance Results * Glucose, Whole Blood (07/13/2024 8:11 AM EDT) Glucose, Whole Blood 113 60 - 115 mg/dL [facility] Comment:METER #: [id number] Testing performed in the Endocrinology Department [address] , [address], [facility]. 07/13/2024 8:11 AM EDT 07/13/2024 8:14 AM EDT us Generic External Data Provider LAB BLOOD ORDERAB LES Final Result [facility] [address] [place] [address] [phone] * US Abdomen Comp w elastography (06/24/2024 8:12 AM EDT) Anatomical Region Laterality Modality Abdomen Ultrasound 06/24/2024 8:12 AM EDT Narrative 06/26/2024 8:05 AM EDT ? [facility] ?[address] ?[place] [address] ? Ultrasound Report ? Signed ? Patient: Aaliyah Mendieta,Edd ?MR#: M ?? [id number] ? : 1980 ?Acct:[id number] ? Age/Sex: 44 / M ?ADM Date: 06/24/24 ? Loc: HO.US ? Attending Dr: Obey Mendoza MD ? Ordering Physician: Obey Mendoza MD ?? Date of Service: 06/24/24 ?? Procedure(s): US abdomen comp w elastography ?? Accession Number(s): [id number] ? cc: Obey Mendoza MD; Martha Joyner [...] ??Ady Spear MD ??06/26/2024 08:03 AM EDT ? Dictated By: ?Ady Spear MD ? Signed By: ?<Electronically signed by Ady Spear MD in OV> ?06/26/24 0803 ? DD/ 0812 ? TD/TT: 06/24/24 0902 ? Corrugator Operator Helper: ? Procedure Note Antonella Viramontes - 06/26/[address] [address] Ultrasound Report Signed Patient: Donal Shaw#: M [id number] : 1980Acct:[id number] Age/Sex: 44 / MADM Date: 06/24/24 Loc: HO.US Attending Dr: Obey Mendoza MD Ordering Physician: Obey Mendoza MD Date of Service: 06/24/24 Procedure(s): US abdomen comp w elastography Accession Number(s): [id number] cc: Obey Mendoza MD; Martha Joyner MD [...] of Radiologists in Ultrasound Liver Stiffness Thresholds (2020): LIVER STIFFNESS THRESHOLDS: *Shear wave velocity less [...] 06/26/24 0803 DD/ 0812 TD/TT: 06/24/24 0902 Corrugator Operator Helper: [facility] External Provider IMG US PROCEDURES Edited Result - Final * XR Chest 2 Views (05/25/2024 1:52 PM EDT) Anatomical Region Laterality Modality Chest Radiographic Mary ging 05/25/2024 1:52 PM EDT Narrative 05/25/2024 1:54 PM EDT ? [facility] ?[address] ?[place] [address] ?XRay Report ? Signed ? Patient: Fischer Anam,Edd ?MR#: M ?? [id number] ? : 1980 ?Acct:[id number] ? Age/Sex: 43 / M ?ADM Date: 05/25/24 ? Loc: HO.XRAY ? Attending Dr: Obey Mendoza MD ? Ordering Physician: Obey Mendoza MD ?? Date of Service: 05/25/24 ?? Procedure(s): XR chest 2V ?? Accession Number(s): [id number] ? cc: Obey Mendoza MD; Martha Joyner [...] DD/ 1352 ? TD/TT: 05/25/24 1352 ? Corrugator Operator Helper: ? Procedure Note Blazeter, Image - 05/25/[address] [address] XRay Report Signed Patient: Donal Shaw#: M [id number] : 1980Acct:[id number] Age/Sex: 43 / MADM Date: 05/25/24 Loc: TRACE Attending Dr: Obey Mendoza MD Ordering Physician: Obey Mendoza MD Date of Service: 05/25/24 Procedure(s): XR chest 2V Accession Number(s): [id number] cc: Obey Mendoza MD; Martha Joyner MD [...] 05/25/24 1353 DD/ 1352 TD/TT: 05/25/24 1352 Corrugator Operator Helper: [facility] External Provider IMG XR PROCEDURES Final Result * Vitamin D, 25-Hydroxy, Total, Immunoassay (05/25/2024 6:30 AM EDT) Vitamin D 25-OH Total 67.5 >30 ng/mL [facility] Comment: Health Based Reference Values*< 20 ??ng/mL ??Pkpqhrmqn09-77 ng/mL ??Insufficient> 30 ??ng/mL ??Sufficient*Chris MERINO. N [...] ORDERAB LES Final Result Performing Organization Address City/[facility]/ZIP Co de Phone Number [facility] [address] [place] [phone] * (ABNORMAL) Vitamin B12 (Cobalamin) and Folate Panel, Serum (05/25/2024 6:30 AM EDT) Vitamin B12 1,547(H) 200 - 900 pg/mL [facility] Comment:NORMAL 200-900 PG/ML INDETERMINATE 160-199 PG/ML DEFICIENT < 160 PG/ML Folate 10.6 > or = 4.0 ng/mL [facility] Comment:Reference Values:> o r = 4.0 ng/mL< 4.0 ng/mL suggests folate deficiency Methotrexate, aminopterin and folinic acid(leucovorin) are chemotherapeutic agents whose molecularstructures are similar to folate; therefore, the Architectfolate assay cannot be used for patients using these drugs. 05/25/2024 6:30 AM EDT 05/25/2024 6:30 AM EDT us Generic External Data Provider LAB BLOOD ORDERAB LES Final Result Performing Organization Address [facility] Co de Phone Number [facility] [address] [place] [phone] * TSH with Reflex to Free T4 (05/25/2024 6:30 AM EDT) TSH reflex Free T4 2.92 0.32 - 4.0 uIU/mL [facility] 05/25/2024 6:30 AM EDT 05/25/2024 6:30 AM EDT us Generic External Data Provider LAB BLOOD ORDERAB LES Final Result Performing Organization Address City/[facility]/ZIP Co de Phone Number [facility] [address] [place] [phone] * CBC auto differential (05/25/2024 6:30 AM EDT) White Blood Count 8.6 4.8 - 10.8 X10*3/uL [facility] Red Blood Count 5.79 4.60 - 5.80 X10*6/uL [facility] Hemoglobin 16.6 14.0 - 18.0 g/dl [facility] Hematocrit 49.1 42.0 - 52.0 % [facility] Mean Corpuscular Volume 84.8 80.0 - 98.0 fL [facility] Mean Corpuscular Hemoglobin 28.7 27.0 - 33.0 pg [facility] Mean Corpuscular HGB Conc 33.8 31.0 - 36.0 g/dl [facility] Red Cell Distribution Width 14.6 11.0 - 16.0 % [facility] Platelet Count 253 160 - 400 X10*3/uL [facility] Mean Platelet Volume 9.4 9.4 - 12.4 fL [facility] Neutrophils Percent Auto 58.2 45 - 73 % [facility] Imm Gran Pct Auto 0.3 0.0 - 0.4 % [facility] Lymphocytes Percent Auto 28.7 20 - 40 % [facility] Monocytes Percent Auto 8.2 2 - 11 % [facility] Eosinophils Percent Auto 3.8 0 - 4 % [facility] Basophils Percent Auto 0.8 0 - 2 % [facility] NRBC Pct Auto 0.0 0.0 - 0.2 /100WBC [facility] Neutrophils Absolute Auto 5.0 2.0 - 8.3 x10*3/uL [facility] Imm Gran Abs Auto 0.03 0.00 - 0.03 X10*3/uL [facility] Lymphocytes Absolute Auto 2.5 1.2 - 4.9 X10*3/uL [facility] Monocytes Absolute Auto 0.7 0.1 - 1.2 X10*3/uL [facility] Eosinophils Absolute Auto 0.3 0.0 - 0.4 X10*3/uL [facility] Basophils Absolute Auto 0.1 0.0 - 0.2 X10*3/uL [facility] NRBC Abs Auto 0.000 0.0 - 0.012 X10*3/uL [facility] 05/25/2024 6:30 AM EDT 05/25/2024 6:30 AM EDT us Generic External Data Provider LAB BLOOD ORDERAB LES Final Result Performing Organization Address [facility] Phone Number [facility] [address] [place] [phone] * Iron And Total Iron Binding Capacity (05/25/2024 6:30 AM EDT) Iron 46 45 - 160 mcg/dL [facility] Total Iron Binding Capacity 279 228 - 428 mcg/dL [facility] Percent Iron Saturation 16 15 - 50 % [facility] Unsaturated Iron Binding 233 ug/dL [facility] 05/25/2024 6:30 AM EDT 05/25/2024 6:30 AM EDT us Generic External Data Provider LAB BLOOD ORDERAB LES Final Result Performing Organization Address [facility] [address] [place] [phone] * (ABNORMAL) Insulin (05/25/2024 6:30 AM EDT) Insulin 43(H) 2 - 29 uU/mL [facility] Comment:This test was perfor med using the Stereomood chemiluminescentmethod. Values obtained from different assay methods [...] ORDERAB LES Final Result Performing Organization Address [facility]/ZIP Co de Phone Number [facility] [address] [place] [phone] * Zinc (05/25/2024 6:30 AM EDT) Zinc 76 60 - 130 mcg/dL [facility] Comment:This test was develo ped and its analytical performancecharacteristics have been determined by [employer] [place], [place]. It hasnot been cleared or approved by the U.S. Food and DrugAdministration. This assay has been validated pursuantto the CLIA regulations and is used for clinicalpurposes.THIS TEST WAS PERFORMED AT:[employer] [id number] [id number] ELLIS MD,PHD 05/25/2024 6:30 AM EDT 05/25/2024 6:30 AM EDT Generic External Data Provider LAB BLOOD ORDERAB LES Final Result Performing Organization Address [facility] de Phone Number [facility] [address] [place] [phone] * Vitamin A (05/25/2024 6:30 AM EDT) Pathologist [facility] Vitamin A (Retinol) 74 38 - 98 mcg/dL [facility] Comment:Vitamin supplementat ion within 24 hours prior toblood draw may affect the accuracy of the results.This test was developed and its analytical performancecharacteristics have been determined by [employer], [place]. It hasnot been cleared or approved by the U.S. Food and DrugAdministration. This assay has been validated pursuantto the CLIA regulations and is used for clinicalpurposes.THIS TEST WAS PERFORMED AT:[id number] [place] [address]YMTVDHPLAURY ELLIS MD,PHD 05/25/2024 6:30 AM EDT 05/25/2024 6:30 AM EDT Generic External Data Provider LAB BLOOD ORDERAB LES Final Result Performing Organization Address [facility] Co de Phone Number [facility] [address] [place] [phone] * (ABNORMAL) C-reactive Protein (05/25/2024 6:30 AM EDT) C Reactive Protein 1.04(H) < or = 0.50 mg/dL [facility] 05/25/2024 6:30 AM EDT 05/25/2024 6:30 AM EDT Generic External Data Provider LAB BLOOD ORDERAB LES Final Result Performing Organization Address [facility] de Phone Number [facility] [address] [place] [phone] * Vitamin B1 (05/25/2024 6:30 AM EDT) Vitamin B1 21 8 - 30 nmol/L [facility] Comment:Vitamin supplementat ion within 24 hours prior toblood draw may affect the accuracy of the results.This test was developed and its analytical performancecharacteristics have been determined by [employer] [place], [place]. It hasnot been cleared or approved by the U.S. Food and DrugAdministration. This assay has been validated pursuantto the CLIA regulations and is used for clinicalpurposes.THIS TEST WAS PERFORMED AT:[employer]/[facility] [place] [address]KMHRIBKLAURY ELLIS MD,PHD 05/25/2024 6:30 AM EDT 05/25/2024 6:30 AM EDT Generic External Data Provider LAB BLOOD ORDERAB LES Final Result Performing Organization Address [facility]/ZIP Co de Phone Number [facility] [address] [place] [phone] * (ABNORMAL) Hemoglobin A1c (05/25/2024 6:30 AM EDT) Hemoglobin A1c 6.2(H) <6.0 % [facility] Comment:Hemoglobin A1C Refer ence Range Adults: 4.8 - 6.0 % Non diabetic: < 6.0 % Goal: < 7.0 %Additional Action Suggested: > 8.0 %Note: Hemoglobin A1c results are invalid for patients with abnormal amounts of HbF. Blood transfusions may impact the HbA1c concentration in the patient sample. Estimated Average Glucose 131 mg/dL [facility] Comment:eAG = Estimated ave rage glucose which is %A1C expressed asaverage glucose, using the formula of the Y0U-MwivsehVfqsfxq Glucose study (ADAG), Diabetes Care, Vol.31,#8,2007 05/25/2024 6:30 AM EDT 05/25/2024 6:30 AM EDT us Generic External Data Provider LAB BLOOD ORDERAB LES Final Result Performing Organization Address [facility] de Phone Number [facility] [address] [place] [phone] * Ferritin (05/25/2024 6:30 AM EDT) Ferritin 70 20 - 250 ng/mL [facility] 05/25/2024 6:30 AM EDT 05/25/2024 6:30 AM EDT us Generic External Data Provider LAB BLOOD ORDERAB LES Final Result Performing Organization Address [facility] Co de Phone Number [facility] [address] [place] [phone] * (ABNORMAL) Lipid Panel, Standard (05/25/2024 6:30 AM EDT) Triglycerides 120 <150 mg/dL [facility] Comment:Desirable Triglyceri de: less than 150 mg/dLBorderline High Triglyceride 150-199 mg/dLHigh Triglyceride: 200-499 mg/dLVery High Triglyceride: greater than or equal to 5OO mg/dL Cholesterol 139 <200 mg/dL [facility] Comment:Desirable Cholestero l: less than 200 mg/dLBorderline High Cholesterol: 200-239 mg/dLHigh Cholesterol: greater than 239 mg/dL LDL Cholesterol Calculated 80 <100 mg/dL [facility] Comment:Desirable LDL: less than 100 mg/dLNear Optimal/Above Optimal LDL: 110- 129 mg/dLBorderline High LDL: 130-159 mg/dLHigh LDL: 160-189 mg/dLVery High LDL: greater than or equal to 190 mg/dL HDL Cholesterol 35(L) >40 mg/dL [facility] Comment:Desirable HDL: great er than 40 mg/dL Note: This HDL assay may give artificially low results in patients with liver disease. 05/25/2024 6:30 AM EDT 05/25/2024 6:30 AM EDT us Generic External Data Provider LAB BLOOD ORDERAB LES Final Result [facility] [address] [place] [phone] * (ABNORMAL) Comprehensive Metabolic Panel (05/25/2024 6:30 AM EDT) Sodium 141 135 - 145 mmol/L [facility] Potassium 4.7 3.3 - 5.1 mmol/L [facility] Chloride 111(H) 96 - 108 mmol/L [facility] Carbon Dioxide 23 22 - 29 mmol/L [facility] Anion Gap 12 12 - 20 [facility] Urea Nitrogen (BUN) 26(H) 9 - 16 mg/dL [facility] Creatinine, Serum 1.31 0.5 - 1.4 mg/dL [facility] Estimated Glomerular Filt Rate 59 [facility] Comment:Chronic Kidney Disea se: Estimated GFR < 60 mL/min/1.54c1Jiczli Kidney Disease: Estimated GFR < 15 mL/min/1.73m2 Glucose 123(H) 60 - 115 mg/dL [facility] Calcium 9.2 8.4 - 10.2 mg/dL [facility] Bilirubin, Total 0.3 0.0 - 1.0 mg/dL [facility] Aspartate Amino Transferase 29 5 - 37 U/L [facility] Alanine Aminotransferase 29 0 - 40 U/L [facility] Total Protein 7.2 6.5 - 8.0 g/dL [facility] Albumin Level 3.6 3.5 - 5.0 g/dL [facility] Alkaline Phosphatase 66 39 - 117 U/L [facility] 05/25/2024 6:30 AM EDT 05/25/2024 6:30 AM EDT us Generic External Data Provider LAB BLOOD ORDERAB LES Final Result Performing Organization Address City/State/[facility] Co de Phone Number [facility] [address] [place] [phone] * POCT Glucose (05/18/2024 9:21 AM EDT) Pathologist [facility] Glucose Blood, POC 124 60 - 200 mg/dL QC Media Lot # [id number] Lot# Expiration Date 965 Blood Capillary blood specimen / Unknown 05/18/2024 9:21 AM EDT us Adriane Schultz MD POINT OF CARE TEST ENTER/EDIT OR DERABLES Final Result * (ABNORMAL) Albumin, Random Urine W/Creatinine (04/15/2024 8:26 AM EST) Creatinine, Urine 142.30 mg/dL [facility] Microalbumin Urine >2,000.0 mg/L [facility] Microalbum Creatinine Ratio Ur 1,405.4(H ) <30 ug/mg cr [facility] Comment:Albumin/Creatinine R atio Reference Ranges: Normal: < 30 ug/mg creatinine Microalbuminuria: 30 - 300 ug/mg creatinineClinical Albuminuria: > 300 ug/mg creatinine 04/15/2024 8:26 AM EST 04/15/2024 9:32 AM EST us Generic External Data Provider LAB URINE ORDERAB LES Final Result Performing Organization Address [facility]/ZIP Co de Phone Number [facility] [address] [place] [phone] * Hepatitis C Ab (11/09/2022 9:00 AM EDT) Hepatitis C Antibody Nonreactive Nonreactive [facility] Comment:Antibodies to HCV no t detected; does not exclude early acuteHCV infection. Blood 11/09/2022 9:00 AM EDT 11/09/2022 2:35 PM EDT Martha Joyner MD LAB BLOOD ORDERABLES Final Re sult Performing Organization Address [facility]/ZIP Co de Phone Number [facility] [address] [place] [phone] * HIV 1/2 ANTIGEN/ANTIBODY,FOURTH GENERATION W/RFL [...] ? For additional information please refer to http://education.mobli/faq/SEV575 (This link is being provided for informational/ educational purposes only.) ? The performance of this assay has not been clinically validated in patients less than 2 years old. ?? 05/26/2021 9:29 AM EDT us Martha Joyner MD LAB BLOOD ORDERABLES Final Re sult [facility] [address] from Last 3 Months or Most Recently Relevant to Health Maintenance Insurance [facility] [employer] [facility] D[facility] - HSN PARTIAL (MEDICAID) Care Teams Optimization Engineer Relationship Specialty Start Date End Date Martha Joyner MD [address] [place] [phone] PCP - General Family Medicine [facility] End[facility] 01/08/24
--- OUTSIDE RECORDS SUMMARY | 2024-07-23 08:22 | XMS_ITS | Encounter Summary ---
Author Organization [employer] Address [address] 7t [place] [address] Care Team Providers Care Groover Runner Name Role Phone Martha Joyner MD Primary Care Provider [phone] Reason for Visit * Reason Comments Med Refill Encounter Details Date Type Department Care Team ([facility] st Contact Info) Description 03/11/2023 Telephone [facility] MED & PEDS [address] [place], [place] [phone] Martha Joyner MD [address] [place] [address] Med Refill Social History Tobacco Use Types [...] note were not included. MD Deya Bryson [facility] Nurses Caller: Unspecified (Yesterday, 1:10 PM) Hi! Please could you follow up on the urology referral I placed, and if a appointment already givencould it be scheduled as soon as possible? TC placed to [facility] urology @ [phone] to see if patient has been seen [...] chart. TC placed to [facility] @ [phone] to request U/S report be faxed to [facility] @ [phone]. They faxed it. TC placed to patient to encourage him to make a sooner appointment with urology or at least keep his upcoming appointment. No answer. LM to call us back. Routing to Dr. Doran so he is aware and back to [facility] nurses so they can try again. Patient has f/u with PCP scheduled for 04/02/23. Notes added to appointment for that day. documented in this encounter Plan of Treatment Upcoming Encounters Date Type Department Care Team (Late st Contact Info) Description 08/17/2024 9:00 AM EDT Office Visit [facility] MED & PEDS [address] [place] [address] Martha Joyner MD [address] [place] [address] 01/19/2025 8:00 AM EST Office Visit [facility] ADULT DENTAL [address] [place] [address] Harvinder Newberry documented as of this encounter Visit Diagnoses Not on filedocumented in this encounter Additional Health Concerns Assessment Noted Time PHQ-9 Depression Total Score: 1 02/15/20 22 4:00 PM EST documented as of this encounter Care Teams Groover Runner Relationship Specialty Start Date End Date Martha Joyner MD [address] [place] [address] PCP - General Family Medicine 02/22/21 [facility] Nurse Practitioner Endocrinology 01/08/24 documented as of this encounter
--- OUTSIDE RECORDS SUMMARY | 2024-07-23 08:23 | XMS_ITS | Encounter Summary ---
Author Organization [employer] Address [address] 7[address] [place] [address] Care Team Providers Care Barnworker Groom Name Role Phone Martha Joyner MD Primary Care Provider [phone] Reason for Visit * Reason Onset Date Comments Med Refill 03/16/2024 Encounter Details Date Type Department Care Team (Late st Contact Info) Description 03/16/2024 Telephone [facility] MED[facility]INE [address] [place], [place] [phone] Martha Joyner MD [address] [place] [address] Med Refill Social History Tobacco Use Types [...] 6.25 MG tablet To be sent to: [facility] documented in this encounter Plan of Treatment Upcoming Encounters Date Type Department Care Team (Late st Contact Info) Description 08/17/2024 9:00 AM EDT Office Visit [facility] MED & PEDS [address] [place] [address] Martha Joyner MD [address] [place] [address] 01/19/2025 8:00 AM EST Office Visit [facility] ADULT DENTAL [address] [place] [address] Harvinder Newberry documented as of this encounter Visit Diagnoses Not on filedocumented in this encounter Additional Health Concerns Assessment Noted Time PHQ-9 Depression Total Score: 19 024 3:19 PM EDT documented as of this encounter Care Teams Barnworker Groom Relationship Specialty Start Date End Date Martha Joyner MD [address] [place] [address] PCP - General Family Medicine 02/22/21 [place] [facility] [place] Practitioner Endocrinology 01/08/24 documented as of this encounter
--- OUTSIDE RECORDS SUMMARY | 2024-07-23 08:23 | XMS_ITS | Encounter Summary ---
Author Organization [employer] Address [address] [place] [address] Care Team Providers Care C S S Representative Name Role Phone Martha Joyner MD Primary Care Provider Encounter Details Date Type Department Care Team ([facility] st Contact Info) Description 03/13/2023 Telephone [facility] MEDICINE [address] [place] [address] Martha Joyner MD [address] [place], [place] [phone] Social History Tobacco Use Types Packs/Day Years [...] indicated. Report faxed at this time to [phone] documented in this encounter Plan of Treatment Upcoming Encounters Date Type Department Care Team (Late st Contact Info) Description 08/17/2024 9:00 AM EDT Office Visit [facility] MED & PEDS [address] [place] [address] Martha Joyner MD [address] [place] [address] 01/19/2025 8:00 AM EST Office Visit [facility] ADULT DENTAL [address] [place] [address] Harvinder Newberry documented as of this encounter Visit Diagnoses Not on filedocumented in this encounter Additional Health Concerns Assessment Noted Time PHQ-9 Depression Total Score: 1 02/15/20 22 4:00 PM EST documented as of this encounter Care Teams C S S Representative Relationship Specialty Start Date End Date Martha Joyner MD [address] [place] [address] PCP - General Family Medicine 02/22/21 Endo [facility] [place] Nurse Practitioner Endocrinology 01/08/24 documented as of this encounter
--- OUTSIDE RECORDS SUMMARY | 2024-07-23 08:23 | XMS_ITS | Encounter Summary ---
Author Organization [facility] Address [address] [address] Phone Care Team Providers Care State Farm Agent Team Member Name Role Phone Martha Joyner MD Primary Care Provider [phone] Encounter Details Date Type Department Care Team (Late st Contact Info) Description 06/29/2021 Documentation Only [facility] [address] [place] [address] Martha Joyner MD [address] [place] [address] [phone] Social History Tobacco Use Types Packs/Day Years [...] [facility] [address] [place] [address] Jose Guadalupe Coleman MD [address] [place] [address] [place] [phone] documented as of this encounter Visit Diagnoses Not on filedocumented in this encounter Care Teams State Farm Agent Team Member Relationship Specialty Start Date End Date Martha Joyner MD PCP - General Family Medicine 06/29/21 documented as of this encounter
--- OUTSIDE RECORDS SUMMARY | 2024-07-23 08:23 | XMS_ITS | Encounter Summary ---
Author Organization [employer] Address [address] [place] [address] Care Team Providers Care Railway Station Manager Name Role Phone Martha Joyner MD Primary Care Provider [phone] Encounter Details Date Type Department Care Team ([facility] st Contact Info) Description 05/01/2023 Telephone [facility] MED & PEDS [address] [place], [place] [phone] Martha Joyner MD [address] [place], [place] [phone] Social History Tobacco Use Types Packs/Day Years [...] Description 08/17/2024 9:00 AM EDT Office Visit [facility] MED & PEDS [address] [place] [address] Martha Joyner MD [address] [place] [address] 01/19/2025 8:00 AM EST Office Visit [facility] ADULT DENTAL [address] [place] [address] Harvinder Newberry documented as of this encounter Visit Diagnoses Not on filedocumented in this encounter Additional Health Concerns Assessment Noted Time PHQ-9 Depression Total Score: 1 02/15/20 22 4:00 PM EST documented as of this encounter Care Teams Railway Station Manager Relationship Specialty Start Date End Date Martha Joyner MD [address] [place] [address] PCP - General Family Medicine 02/22/21 [facility] Nurse Practitioner Endocrinology 01/08/24 documented as of this encounter
--- OUTSIDE RECORDS SUMMARY | 2024-07-23 08:23 | XMS_ITS | Encounter Summary ---
Author Organization [employer] Address [address] 7[address] [place] [address] Care Team Providers Care Section Beamer Name Role Phone Martha Joyner MD Primary Care Provider [phone] Encounter Details Date Type Department Care Team (Late Contact Info) Description 02/15/2022 Orders Only [facility] CHC MED & PEDS [address] [place], [place] [phone] Martha Joyner MD [address] [place], [place] [phone] Type 2 diabetes mellitus with hyperglycemia, without long-term current use of insulin ([facility]) (Primary Dx) Social History Tobacco [...] Description 08/17/2024 9:00 AM EDT Office Visit [facility] CH[facility] MED & PEDS [address] [place] [address] Martha Joyner MD [address] [place] [address] 01/19/2025 8:00 AM EST Office Visit [facility] ADULT DENTAL [address] [place] [address] Harvinder Newberry documented as of this encounter [...] Random Urine W/Creatinine (11/09/2022 9:05 AM EDT) [facility] Creatinine, Urine 97.12 mg/dL [facility] Microalbumin Urine 900.0 mg/L H [facility] Microalbum Creatinine Ratio Ur 926.6(H) <30 ug/mg cr [facility] Comment:Albumin/Creatinine R at Reference Ranges: Normal: < 30 ug/mg creatinine Microalbuminuria: 30 - 300 ug/mg creatinineClinical Albuminuria: > 300 ug/mg creatinine 11/09/2022 9:05 AM EDT 11/09/2022 2:30 PM EDT us Martha Joyner MD LAB URINE ORDERABLES Final Re sult Performing Organization Address City/[facility]/ZIP Co de Phone Number [facility] [address] [place] [phone] * (ABNORMAL) Sed Rate by Modified Augusutsren (11/09/2022 9:00 AM EDT) Pathologist [facility] Emergency Department Erythrocyte Sedimentation Rate 34(H) 0 - 15 MM/HR [facility] Comment:Patients with polycy themia and many hemoglobin abnormalitiesmay have depressed sed rates whereas patients with anemiamay have elevated sed rates. 11/09/2022 9:00 AM EDT 11/09/2022 2:45 PM EDT us Martha Joyner MD LAB BLOOD ORDERABLES Final Re sult Performing Organization Address City/[facility]/ZIP Co de Phone Number [facility] [address] [place] [phone] * (ABNORMAL) Comprehensive Metabolic Panel, Fasting (11/09/2022 9:00 AM EDT) Pathologist [facility] Department Sodium 139 135 - 145 mmol/L [facility] Potassium 4.5 3.3 - 5.1 mmol/L [facility] Chloride 106 96 - 108 mmol/L [facility] Carbon Dioxide 25 22 - 29 mmol/L [facility] Anion Gap 13 12 - 20 [facility] Urea Nitrogen (BUN) 26(H) 9 - 16 mg/dL [facility] Creatinine, Serum 1.35 0.5 - 1.4 mg/dL [facility] Estimated Glomerular Filt Rate 58 [facility] Comment:NOTE: For -Am erican individuals, multiply the result by 1.210.Chronic Kidney Disease: Estimated GFR < 60 mL/min/1.40m0Tdohuo Kidney Disease: Estimated GFR < 15 mL/min/1.73m2 Glucose Fasting 109(H) 60 - 99 mg/dL [facility] Comment:A fasting glucose fr om 100-125 mg/dl is considered impaired(pre-diabetes). Calcium 10.1 8.4 - 10.2 mg/dL [facility] Bilirubin, Total 0.4 0.0 - 1.0 mg/dL [facility] Aspartate Amino Transferase 30 5 - 37 U/L [facility] Alanine Aminotransferase 27 0 - 40 U/L [facility] Total Protein 7.5 6.5 - 8.0 g/dL [facility] Albumin Level 3.9 3.5 - 5.0 g/dL [facility] Alkaline Phosphatase 78 39 - 117 U/L [facility] 11/09/2022 9:00 AM EDT 11/09/2022 2:45 PM EDT us Martha Joyner MD LAB BLOOD ORDERABLES Final Re sult Performing Organization Address City/State/[facility] Co de Phone Number [facility] [address] [place] [phone] * (ABNORMAL) Glucose, Whole Blood (07/27/2022 2:52 PM EDT) Glucose, Whole Blood 183(H) 60 - 115 mg/dL [facility] Comment:METER #: [id number] 5Testing performed in the Endocrinology Department [address] , [address], [facility]. 07/27/2022 2:52 PM EDT 07/27/2022 2:56 PM EDT [facility] External Provider LAB BLO OD ORDERABLES Final Result Performing Organization Address [facility] Co de Phone Number [facility] [address] [place] [phone] * Albumin, Random Urine W/Creatinine (05/18/2022 11:59 AM EDT) Creatinine, Urine 72.74 mg/dL [facility] Microalbumin Urine 747.0 mg/L [facility] Microalbum Creatinine Ratio Ur 1,026.9 ug/mg cr [facility] Comment:Albumin/Creatinine R atio Reference Ranges: Normal: < 30 ug/mg creatinine Microalbuminuria: 30 - 300 ug/mg creatinineClinical Albuminuria: > 300 ug/mg creatinine 05/18/2022 11:5 9 AM EDT 05/18/2022 1:23 PM EDT [facility] External Provider LAB URI NE ORDERABLES Final Result Performing Organization Address [facility] Co de Phone Number [facility] [address] [place] [phone] * Lipid Panel, Standard (05/18/2022 11:47 AM EDT) Triglycerides 243 mg/dL [facility] Comment:Desirable Triglyceri de: less than 150 mg/dLBorderline High Triglyceride 150-199 mg/dLHigh Triglyceride: 200-499 mg/dLVery High Triglyceride: greater than or equal to 5OO mg/dL Cholesterol 152 mg/dL [facility] Comment:Desirable Cholestero l: less than 200 mg/dLBorderline High Cholesterol: 200-239 mg/dLHigh Cholesterol: greater than 239 mg/dL LDL Cholesterol Calculated 70 mg/dl [facility] Comment:Desirable LDL: less than 100 mg/dLNear Optimal/Above Optimal LDL: 110- 129 mg/dLBorderline High LDL: 130-159 mg/dLHigh LDL: 160-189 mg/dLVery High LDL: greater than or equal to 190 mg/dL HDL Cholesterol 34 mg/dL [facility] Comment:Desirable HDL: great er than 40 mg/dL Note: This HDL assay may give artificially low results in patients with liver disease. 05/18/2022 11:4 7 AM EDT 05/18/2022 1:23 PM EDT [facility] External Provider LAB BLO OD ORDERABLES Final Result Performing Organization Address [facility] Co de Phone Number [facility] [address] [place] [phone] * (ABNORMAL) Glucose, Whole Blood (05/18/2022 10:23 AM EDT) Glucose, Whole Blood 172(H) 60 - 115 mg/dL [facility] Comment:METER #: [id number] 5Testing performed in the Endocrinology Department [address] , [address], [facility]. 05/18/2022 10:2 3 AM EDT 05/18/2022 10:28 AM EDT [facility] External Provider LAB BLO OD ORDERABLES Final Result Performing Organization Address [facility] de Phone Number [facility] [address] [place] [phone] documented in this encounter Visit Diagnoses Diagnosis Type 2 diabetes mellitus with hyperglycemia, without long-term current use of insulin (CMS/HCC)- Primary documented in this encounter Additional Health Concerns Assessment Noted Time PHQ-9 Depression Total Score: 1 02/15/20 22 4:00 PM EST documented as of this encounter Care Teams Section Beamer Relationship Specialty Start Date End Date Martha Joyner MD [address] [place] [address] PCP - General Family Medicine [facility] 01/08/24 documented as of this encounter
--- OUTSIDE RECORDS SUMMARY | 2024-07-23 08:23 | XMS_ITS | Encounter Summary ---
Author Organization [employer] Address [address] [place] [address] Care Team Providers Care Gravure Printing Machinist Name Role Phone Martha Joyner MD Primary Care Provider [phone] Reason for Visit * Reason Comments Routine Cleaning Dental Exam Encounter Details Date Type Department Care Team ([facility] st Contact Info) Description 07/17/2024 8:00 AM EDT Office Visit [facility] ADULT DENTAL [address] [place] [address] Harvinder Newberry Dental calculus (Primary Dx) Social History Tobacco Use Types [...] Pulse 65 07/17/2024 8:05 AM EDT Temperature - - Respiratory Rate - - Oxygen Saturation - - Inhaled Oxygen Concentration - - Weight - - Height - - Body Mass Index - - documented in this encounter Progress Notes * Harvinder Newberry - 07/17/2024 8:00 AM EDT Patient ID: Edd Mendieta is a 44 y.o. male. Time Out: Timeout Date: 07/17/24, Timeout Time: 805 Location: [facility] Tooth: Maxilla and Mandible Procedure: Exam and Prophylaxis Verified the above with patient, classroom assistant, and provider. Confirmed via patient's chart, intraorally and by radiographs. Hospice Clinical Supervisor: not applicable Medical Hx: Vitals: Blood pressure 110/62, pulse 65. Medications, Med Hx reviewed with patient and updated in chart. Treatment Provided Dental procedures in this visit D1110 - PROPHYLAXIS - ADULT Full (Completed) Service provider: Harvinder Newberry Billing provider: Valerie Le DDS D1330 - ORAL HYGIENE INSTRUCTIONS (Completed) Service provider: Harvinder Newberry Billyoseph provider: Valerie Le DDS D9450 - CASE PRESENTATION, DETAILED AND EXTENSIVE TREATMENT PLANNING (Completed) Service provider: Harvinder Newberry Billyoseph provider: Valerie Le DDS Instruments Used: Ultrasonic Scalers and Prophy angle Fluoride: N/A Oral Cancer Screening: No lesions Head/Neck Exam: No Lesions Calculus: Light and Generalized Plaque: Moderate and Generalized Stain: Light and Generalized Bleeding: Light and Generalized Gingiva: Bleeding on probing [place]: Poor Perio Chart: Not Completed Oral hygiene instructions provided to patient including brushing technique and flossing. Dental exam done by . Recommendations: Bouton two times daily, modified lyon technique, Floss daily Recall Frequency: 6 mo NV: 6mr Hygienist: Harvinder Newberry RDH * Valerie Le DDS - 07/17/2024 8:00 AM EDT Patient ID: Edd Mendieta is a 44 y.o. male. Time Out: Date: 07/17/2024 Location: [facility] Tooth: Maxilla and Mandible Procedure: Exam Verified the above with patient, classroom assistant, and provider. Confirmed via patient's chart, intraorally and by radiographs. Hospice Clinical Supervisor: not applicable Periodic Exam - Chief Complaint(s) - None Head/Neck/Soft Tissue Exam: Lips - WNL Cheeks- WNL Tongue- WNL Floor of mouth- WNL Palate- WNL Pharynx- WNL Lymph nodes- WNL TMJ/Occlusal - WNL Caries Risk - Low Risk reviewed previous x-rays/ Perio Risk - Moderate Risk/gingival bleeding /calculus and plague moderate Patient has generalized periodontitis- Denied approval for SRPS Intraoral Exam completed, radiographs reviewed, caries diagnosed and treatment planned for restorative. Risks/CC Addressed - Yes Oral Hygiene Instruction Provided - Yes/Explained importance of flossing on a daily basis Referrals - none NV: recall Dentist: Valerie Le DDS documented in this encounter Plan of Treatment Upcoming Encounters Date Type Department Care Team (Late st Contact Info) Description 08/17/2024 9:00 AM EDT Office Visit [facility] MED & PEDS [address] [place] [address] Martha Joyner MD [address] [place] [address] 01/19/2025 8:00 AM EST Office Visit [facility] ADULT DENTAL [address] [place] [address] Harvinder Newberry Scheduled Orders Name Type Priority Associated Diagnoses Orde r Schedule PROPHYLAXIS - ADULT Dental Routine 1 Occ urrences starting 07/17/2024 documented as of this encounter Procedures Procedure Name Priority Date/Time Associated Diagnosis Comments Full PROPHYLAXIS - ADULT Routine 025 8:00 AM EDT PERIODIC ORAL EVALUATION - ESTABLISHED PATIENT Routine 07/17/2024 8:00 AM EDT ORAL HYGIENE INSTRUCTIONS Routine 2024 8:00 AM EDT CASE PRESENTATION, DETAILED AND EXTENSIVE TREATMENT PLANNING Routine 07/17/2024 8:00 AM EDT documented in this encounter Visit Diagnoses Diagnosis Dental calculus- Primary Accretions on teeth documented in this encounter Additional Health Concerns Assessment Noted Time PHQ-9 Depression Total Score: 19 024 3:19 PM EDT documented as of this encounter Care Teams Gravure Printing Machinist Relationship Specialty Start Date End Date Martha Joyner MD [address] [place] [address] PCP - General Family Medicine 02/22/21 [place] [facility] [place] Practitioner Endocrinology 01/08/24 documented as of this encounter
--- OUTSIDE RECORDS SUMMARY | 2024-07-23 08:23 | XMS_ITS | Encounter Summary ---
Author Organization [employer] Address [address] [place] [address] Care Team Providers Care Student Nurse Name Role Phone Martha Joyner MD Primary Care Provider [phone] Reason for Visit * Reason Comments Med Refill Encounter Details Date Type Department Care Team ([facility] st Contact Info) Description 05/30/2023 Refill [facility] MED & PEDS [address] [place], [place] [phone] Martha Joyner MD [address] [place] [address] Primary hypertension Social History Tobacco Use Types [...] Description 08/17/2024 9:00 AM EDT Office Visit [facility] MED & PEDS [address] [place] [address] Martha Joyner MD [address] [place] [address] 01/19/2025 8:00 AM EST Office Visit [facility] ADULT DENTAL [address] [place] [address] Harvinder Newberry documented as of this encounter Visit Diagnoses Diagnosis Primary hypertension Unspecified essential hypertension documented in this encounter Additional Health Concerns Assessment Noted Time PHQ-9 Depression Total Score: 1 02/15/20 22 4:00 PM EST documented as of this encounter Care Teams Student Nurse Relationship Specialty Start Date End Date Martha Joyner MD [address] [place] [address] PCP - General Family Medicine 02/22/21 [place] Nurse Practitioner Endocrinology 01/08/24 documented as of this encounter
--- OUTSIDE RECORDS SUMMARY | 2024-07-23 08:23 | XMS_ITS | Encounter Summary ---
Author Organization [employer] Address [address] [place] [address] Care Team Providers Care Principal Architectural Firm Name Role Phone Martha Joyner MD Primary Care Provider [phone] Reason for Visit * Reason Comments Med Refill Encounter Details Date Type Department Care Team ([facility] st Contact Info) Description 06/07/2024 Refill [facility] MED & PEDS [address] [place], [place] [phone] Martha Joyner MD [address] [place] [address] Type 2 diabetes mellitus with hyperglycemia, without long-term current use of insulin ([facility]) Social History Tobacco Use Types Packs/Day Years [...] 9:00 AM EDT Office Visit [facility] MED & PEDS [address] [place] [address] Martha Joyner MD [address] [place] [address] 01/19/2025 8:00 AM EST Office Visit [facility] ADULT DENTAL [address] [place] [address] Harvinder Newberry documented as of this encounter Visit Diagnoses Diagnosis Type 2 diabetes mellitus with hyperglycemia, without long-term current use of insulin ([facility]) documented in this encounter Additional Health Concerns Assessment Noted Time PHQ-9 Depression Total Score: 19 024 3:19 PM EDT documented as of this encounter Care Teams Principal Architectural Firm Relationship Specialty Start Date End Date Martha Joyner MD [address] [place] [address] PCP - General Family Medicine 02/22/[address] [facility] Nurse Practitioner Endocrinology 01/08/24 documented as of this encounter
--- OUTSIDE RECORDS SUMMARY | 2024-07-23 08:23 | XMS_ITS | Encounter Summary ---
Author Organization [employer] Address [address] [place] [address] Care Team Providers Care Saddle Lining Stitcher Name Role Phone Martha Joyner MD Primary Care Provider [phone] Reason for Visit * Reason Comments Med Refill Encounter Details Date Type Department Care Team ([facility] st Contact Info) Description 07/21/2023 Refill [facility] MED & PEDS [address] [place], [place] [phone] Martha Joyner MD [address] [place] [address] Type 2 diabetes mellitus with hyperglycemia, without long-term current use of insulin ([facility]) Social History Tobacco [...] Description 08/17/2024 9:00 AM EDT Office Visit [facility] MED & PEDS [address] [place] [address] Martha Joyner MD [address] [place] [address] 01/19/2025 8:00 AM EST Office Visit [facility] ADULT DENTAL [address] [place] [address] Harvinder Newberry documented as of this encounter Visit Diagnoses Diagnosis Type 2 diabetes mellitus with hyperglycemia, without long-term current use of insulin ([facility]) documented in this encounter Additional Health Concerns Assessment Noted Time PHQ-9 Depression Total Score: 17 024 5:09 PM EDT documented as of this encounter Care Teams Saddle Lining Stitcher Relationship Specialty Start Date End Date Martha Joyner MD [address] [place] [address] PCP - General Family Medicine 02/22/21 Endo [facility] Nurse Practitioner Endocrinology 01/08/24 documented as of this encounter
--- OUTSIDE RECORDS SUMMARY | 2024-07-23 08:23 | XMS_ITS | Encounter Summary ---
Author Organization [facility] Address [address] [address] Phone Care Team Providers Care Information Strategist Name Role Phone Martha Joyner MD Primary Care Provider [phone] Encounter Details Date Type Department Care Team (Late st Contact Info) Description 06/29/2021 Documentation Only [facility] [address] [place] [address] Martha Joyner MD [address] [place] [address] [phone] Social History Tobacco Use Types Packs/Day Years [...] [facility] [address] [place] [address] Jose Guadalupe Coleman MD [address] [place] [address] [place] [phone] documented as of this encounter Visit Diagnoses Not on filedocumented in this encounter Care Teams Information Strategist Relationship Specialty Start Date End Date Martha Joyner MD PCP - General Family Medicine 06/29/21 documented as of this encounter
== END 2024-07-23 09:07 | disposition home or self-care (01) ==
LOC: HO.HBST 08:13
PROVIDERS: PCP Family Medicine; Visit Provider Counselor Mental Health
DX: F43.20 Adjustment disorder, unspecified (principal); Z71.89 Other specified counseling
CPT/HCPCS: 90837

== ENCOUNTER 2024-09-01 06:31 | Outpatient (REF) | payer OTHER, SELFPAY ==
--- OUTSIDE RECORDS SUMMARY | 2024-09-01 06:34 | XMS_ITS | Encounter Summary ---
Author Organization [facility] Address [address] [address] Phone Care Team Providers Care Deliverer Pharmacy Name Role Phone Martha Joyner MD Primary Care Provider [phone] Encounter Details Date Type Department Care Team (Late st Contact Info) Description 06/29/2021 Documentation Only [facility] [address] [place] [address] Martha Joyner MD [address] [place] [address] [phone] Social History Tobacco Use Types Packs/Day Years [...] Visit [facility] [address] [place] [address] Jose Guadalupe Coleman MD [address] [place] [address] [place] [phone] documented as of this encounter Visit Diagnoses Not on filedocumented in this encounter Care Teams Deliverer Pharmacy Relationship Specialty Start Date End Date Martha Joyner MD PCP - General Family Medicine 06/29/21 documented as of this encounter
--- OUTSIDE RECORDS SUMMARY | 2024-09-01 06:34 | XMS_ITS | Encounter Summary ---
Author Organization [employer] Address [address] [place] [address] Care Team Providers Care Professor Of Vegetable Science Name Role Phone Martha Joyner MD Primary Care Provider [phone] Reason for Visit * Reason Onset Date Comments Nurse Triage 11/20/2023 Encounter Details Date Type Department Care Team ([facility] st Contact Info) Description 11/20/2023 Telephone [facility] MEDICINE [address] [place], [place] [phone] Martha Joyner MD [address] [place] [address] Nurse Triage Social History Tobacco Use Types [...] didn't answer. Left voice message to call [facility] triage line at [phone] x2. * Telephone Encounter - Rangel Razo [...] Care Team (Late st Contact Info) Description 01/19/2025 8:00 AM EST Office Visit [facility] ADULT DENTAL [address] [place] [address] Harvinder Newberry documented as of this encounter Visit Diagnoses Not on filedocumented in this encounter Additional Health Concerns Assessment Noted Time PHQ-9 Depression Total Score: 19 024 3:19 PM EDT documented as of this encounter Care Teams Professor Of Vegetable Science Relationship Specialty Start Date End Date Martha Joyner MD [address] [place] [address] PCP - General Family Medicine 02/22/21 Endo [facility] Nurse Practitioner Endocrinology 01/08/24 documented as of this encounter
[2024-09-01 07:26] LABS: Hemoglobin A1C 198.4164 umol/L; Total Hemoglobin (HGBA1C) 4205.9463 umol/L
[2024-09-01 07:43] LABS: Alanine Aminotransferase 29 U/L (0-40); Albumin Level 3.7 g/dL (3.5-5.0); Alkaline Phosphatase 61 U/L (39-117); Anion Gap 13 (12-20); Aspartate Amino Transferase 29 U/L (5-37); Blood Urea Nitrogen 25 mg/dL (9-16); Calcium 9.0 mg/dL (8.4-10.2); Carbon Dioxide 25 mmol/L (22-29); Chloride 106 mmol/L (96-108); Cholesterol 152 mg/dL (<200); Estimated Glomerular Filt Rate 54; HDL Cholesterol 36 mg/dL (>40); Potassium 4.5 mmol/L (3.3-5.1); Sodium 139 mmol/L (135-145); Total Protein 6.7 g/dL (6.5-8.0); Triglycerides 191 mg/dL (<150)
== END 2024-09-01 06:32 | disposition home or self-care (01) ==
LOC: HO.LAB 06:31
PROVIDERS: Student in an Organized Health Care Education/Training Program; PCP Family Medicine; Visit Provider Urology
DX: E29.1 Testicular hypofunction (principal); E11.65 Type 2 diabetes mellitus with hyperglycemia
CPT/HCPCS: 36415; 80048; 80061; 80076; 83002; 83036; 84403

== ENCOUNTER 2024-09-10 19:01 | Emergency (ER) | payer OTHER, SELFPAY ==
[2024-09-10 19:57] VITALS: BP 116/69; PULSE 89; RESP 20; TEMP 36.7; O2SAT 96; BMI 25.1
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
[2024-09-10 20:55] VITALS: BP 116/69; PULSE 89; RESP 20; TEMP 36.7; O2SAT 96
== END 2024-09-10 21:04 | disposition home or self-care (01) ==
PROVIDERS: Emergency Provider Emergency Medicine; PCP Family Medicine
DX: S13.4XXA Sprain of ligaments of cervical spine, initial encounter (principal); M54.9 Dorsalgia, unspecified; M54.50 Low back pain, unspecified; M79.662 Pain in left lower leg; E11.22 Type 2 diabetes mellitus with diabetic chronic kidney disease; I12.9 Hypertensive chronic kidney disease with stage 1 through stage 4 chronic kidney disease, or unspecified chronic kidney disease; N18.30 Chronic kidney disease, stage 3 unspecified; V49.9XXA Car occupant (driver) (passenger) injured in unspecified traffic accident, initial encounter; W22.11XA Striking against or struck by driver side automobile airbag, initial encounter; Y93.9 Activity, unspecified; Y92.9 Unspecified place or not applicable; Y99.9 Unspecified external cause status
CPT/HCPCS: 99282; 99283

== ENCOUNTER 2024-09-30 09:53 | Outpatient (AMB) | payer OTHER, SELFPAY ==
--- NOTE | 2024-09-30 09:53 | A.OFFVIS_ITS ---
Intake Visit Reasons: 6m/labs Intake Note: Patient is present for 6M follow up for hypogonadism Urology Medication:ALLOPURINOL Antibiotic Allergy:NONE Blood Thinner:NONE Labs done 09/01/2024: Luteinizing Hormone : 13.8, Total Testosterone : 617 Bristle Machine Operator Required: No Accompanied by: Self / Same As Patient Allergies No Known Allergies Allergy (Verified 09/30/24 09:55) HPI Comments Details: Edd is a pleasant male. He is a patient of . He has seen for the following urologic conditions - question of left hydrocele - borderline testosterone in setting of diabetes Telemedicine Evaluation 15 min Consultation [employer] Ella Video Six-month follow-up Good response to pituitary stimulation for testosterone Labs - 02/24 T 740 LH 12, 09/25 LH 13.8 T 620 Will continue clomiphene 50 mg every other day Left hydrocele Per patient ultrasound performed Question varicocele on left side Has palpable varicocele with reduced testicular size Borderline testosterone Symptoms of low libido Decreased sex drive, decreased spontaneous erections, feeling of lack of energy Laboratory - 06/25 T 321 FT 50 Repeat lab work May benefit from testicular stimulation [facility] Medical History Chronic kidney disease Back pain Numbness and tingling in both hands History of palpitations Morbid obesity HTN (hypertension) Type 2 diabetes mellitus Surgical History No pertinent past surgical history Family History Mother High blood pressure Father Diabetes Kidney problem High blood pressure Maternal Aunt Cancer Maternal Aunt Cancer Social History Are you a primary vision care associate to a significant other at home: No Do you presently have visiting nurse or other home services: No Alcohol intake: never Patient Tobacco Use Status: Never used Tobacco Review of Systems Const All systems reviewed & are unremarkable except as noted in HPI and below Reports no additional complaints Resp Reports no additional complaints GI Reports no additional complaints Reports as per HPI Musc Reports no additional complaints Physical Exam Telemedicine evaluation Appropriate responses Regular breathing rate and rhythm HEENT Head: Yes normal to inspection Ears: hearing grossly normal bilaterally Eyes General: appearance normal, both eyes and all related structures Neck Neck: Yes normal visual inspection Chest Chest palpation & inspection: normal inspection of the chest Resp Effort & Inspection: normal respiratory effort and able to speak in complete sentences Telehealth Telehealth Telehealth Platform: [employer] Location of provider rendering services: practice address Location of patient: address on file Patient Identification confirmed using: Name, : Yes Telehealth method: video Patient verbally consented to treatment: Yes Patient verbally consented to billing insurance company: Yes Patient informed of any privacy concerns related to visit: Yes Assessment & Plan Assessment & Plan (1) Varicocele: Code(s): 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 Category: Medical (2) Hypogonadism in male: Code(s): E29.1 - Testicular hypofunction Category: Medical Plan Six-month follow-up labs and ultrasound Orders: Orders Testosterone, Total 5 Months E29.1 - Testicular hypofunction Estrad Free (Tot Ultra + Free) 5 Months E29.1 - Testicular hypofunction Lutenizing Hormone 5 Months E29.1 - Testicular hypofunction US scrotum 6 Months 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, N43.3 - Hydrocele, unspecified Medications: Changed From clomiphene citrate Take Saturday/Sat/Sat 50 mg PO 3XW To clomiphene citrate Take Saturday/Sat/Sat 50 mg PO 3XW 39 tabs 1RF 90 days Patient Instructions: This note is constructed using voice recognition software. While every effort has been made to ensure accuracy planting machine crewman errors may have been included. Imaging studies, laboratory and physical exam results were discussed and reviewed in detail. No major barriers to patient understanding were identified. An opportunity to ask questions regarding the treatment plan was provided. All questions were answered. The patient expressed understanding and agreement with the above treatment plan. The patient is aware they should contact our office by phone for worsening of their current condition or the appearance of new urologic symptoms. Compliance is encouraged with any medications and followup testing that is ordered. It is a privilege to participate in the urologic care of your patient. If you have any questions or concerns regarding treatment for the above conditions, or other urologic issues, please do not hesitate to contact me. The office telephone contact is [phone]. Sincerely, Dr Filemon Dennis MD, [facility] - Urology Compassionate Specialist Care for the Genitourinary System Coding Level of Care Code Tele Est Pt Level 3 (14513) Complex EM visit Add On G2211 Diagnoses Varicocele I86.1 Hypogonadism in male E29.1
--- OUTSIDE RECORDS SUMMARY | 2024-09-30 10:32 | XMS_ITS | Encounter Summary ---
Author Organization [facility] Address [address] [address] Phone Care Team Providers Care Sheet Taker Name Role Phone Martha Joyner MD Primary Care Provider [phone] Encounter Details Date Type Department Care Team (Late st Contact Info) Description 06/29/2021 Documentation Only [facility] [address] [place] [address] Martha Joyner MD [address] [place] [address] [phone] Social History Tobacco Use Types Packs/Day Years [...] Visit [facility] [address] [place] [address] Jose Guadalupe Coleman MD [address] [place] [address] [place] [phone] documented as of this encounter Visit Diagnoses Not on filedocumented in this encounter Care Teams Sheet Taker Relationship Specialty Start Date End Date Martha Joyner MD PCP - General Family Medicine 06/29/21 documented as of this encounter
--- OUTSIDE RECORDS SUMMARY | 2024-09-30 10:32 | XMS_ITS | Encounter Summary ---
Author Organization [employer] Address [address] [place] [address] Care Team Providers Care Cogeneration Technician Name Role Phone Martha Joyner MD Primary Care Provider [phone] Reason for Visit * Reason Onset Date Comments Nurse Triage 11/20/2023 Encounter Details Date Type Department Care Team ([facility] st Contact Info) Description 11/20/2023 Telephone [facility] MEDICINE [address] [place], [place] [phone] Martha Joyner MD [address] [place] [address] Nurse Triage Social History Tobacco Use Types [...] Left voice message to call [facility] triage line at [phone] x2. * Telephone Encounter - Rangel Razo [...] Description 01/19/2025 8:00 AM EST Office Visit [facility] ADULT DENTAL [address] [place] [address] Harvinder Newberry documented as of this encounter Visit Diagnoses Not on filedocumented in this encounter Additional Health Concerns Assessment Noted Time PHQ-9 Depression Total Score: 19 024 3:19 PM EDT documented as of this encounter Care Teams Cogeneration Technician Relationship Specialty Start Date End Date Martha Joyner MD [address] [place] [address] PCP - General Family Medicine 02/22/21 Endo [facility] Nurse Practitioner Endocrinology 01/08/24 documented as of this encounter
== END 2024-09-30 11:40 | disposition home or self-care (01) ==
LOC: HO.HUSH 09:53
PROVIDERS: PCP Family Medicine; Visit Provider Urology
DX: I86.1 Scrotal varices (principal); E29.1 Testicular hypofunction
CPT/HCPCS: 99213; G2211

== ENCOUNTER 2024-11-04 06:55 | Outpatient (REF) | payer OTHER, SELFPAY ==
--- OUTSIDE RECORDS SUMMARY | 2024-11-04 07:00 | XMS_ITS | Encounter Summary ---
Author Organization [employer] Address [address] [place] [address] Care Team Providers Care Recovery Coordinator Name Role Phone Martha Joyner MD Primary Care Provider [phone] Reason for Visit * Reason Comments Med Refill Encounter Details Date Type Department Care Team ([facility] Contact Info) Description 01/03/2023 Refill [facility] MED [facility] PEDS [address] [place], [place] [phone] Tereza Wagner MD [address] [place] [address] Social History Tobacco Use Types Packs/Day Years [...] Description 01/19/2025 8:00 AM EST Office Visit [facility] ADULT DENTAL [address] [place] [address] Harvinder Newberry documented as of this encounter Visit Diagnoses Not on filedocumented in this encounter Additional Health Concerns Assessment Noted Time PHQ-9 Depression Total Score: 1 02/15/20 22 4:00 PM EST documented as of this encounter Care Teams Recovery Coordinator Relationship Specialty Start Date End Date Martha Joyner MD [address] [place] [id number] PCP - General Family Medicine 02/22/21 [facility] Nurse Practitioner Endocrinology 01/08/24 documented as of this encounter
--- OUTSIDE RECORDS SUMMARY | 2024-11-04 07:00 | XMS_ITS | Clinical Summary ---
Author Organization [facility], Address [address] [place] [address] [place] [address] Phone Care Team Providers Care Sustainability Executive Director Name Role Phone Martha Joyner MD Primary Care Provider [phone] Allergies Active Allergy Reactions Criticality Noted Date [...] DAILY UNTIL FINISHED 3 Active TechLite Pen [place] 31G X 5 MM [facility] USE DAILY WITH INSULIN 3 Active Mounjaro 2.5 MG/0.5ML solution pen-injector Inject 12.5 mg under the skin per week 3 Active carvedilol (COREG) 12.5 MG tablet TAKE ONE TABLET IN THE MORNING AND EVENING WITH FOOD 3 Active Continuous Blood Gluc Sensor (FreeStyle Jeannette 3 Sensor) [facility] USE DIRECTED TO [...] Visit [facility] [address] [place] [phone] Jose Guadalupe Coleman MD [address] [place] [address] [place] [phone] Health Maintenance Due Date Last Done Comments Hepatitis B Vaccine (1 of 3 - 19+ 3-dose series) 06/13/1998 Pneumococcal Vaccine: Peds ( 0 to 5 Years) and At-Risk Patients (6 to 49 Years) (1 of 2 - PCV) 06/13/1998 Diabetes: Ophthalmology Exam 07/07/2021 Diabetes: Pedal Pulse Checked 07/07/2021 Diabetes: Sensory Foot Exam 07/07/2021 Diabetes: Visual Foot Exam 07/07/2021 Diabetes: Hemoglobin A1C 08/25/202405/25/2 025, 04/15/2024, 08/05/2023, Additional history exists Influenza Vaccine (#1) 2024 Insurance [facility] (50922) Care Teams Sustainability Executive Director Relationship Specialty Start Date End Date Martha Joyner MD PCP - General Family Medicine 06/29/21
--- OUTSIDE RECORDS SUMMARY | 2024-11-04 07:00 | XMS_ITS | Encounter Summary ---
Author Organization [facility] Address [address] [address] Phone Care Team Providers Care Concrete Wall Grinder Operator Name Role Phone Martha Joyner MD Primary Care Provider [phone] Encounter Details Date Type Department Care Team (Late st Contact Info) Description 06/29/2021 Documentation Only [facility] [address] [place] [address] Martha Joyner MD [address] [place] [address] [phone] Social History Tobacco Use Types Packs/Day Years [...] Visit [facility] [address] [place] [place] [address] Jose Guadalupe Coleman MD [address] [place] [address] [place] [phone] documented as of this encounter Visit Diagnoses Not on filedocumented in this encounter Care Teams Concrete Wall Grinder Operator Relationship Specialty Start Date End Date Martha Joyner MD PCP - General Family Medicine 06/29/21 documented as of this encounter
--- OUTSIDE RECORDS SUMMARY | 2024-11-04 07:00 | XMS_ITS | Encounter Summary ---
Author Organization [employer] Address [address] [place] [address] Care Team Providers Care Engraver Optical Frames Name Role Phone Martha Joyner MD Primary Care Provider [phone] Reason for Visit * Reason Onset Date Comments Nurse Triage 11/20/2023 Encounter Details Date Type Department Care Team ([facility] st Contact Info) Description 11/20/2023 Telephone [facility] MEDICINE [address] [place], [place] [phone] Martha Joyner MD [address] [place] [address] Nurse Triage Social History Tobacco Use Types [...] didn't answer. Left voice message to call [facility] triage line at [phone]. * Telephone Encounter - Rangel Razo [...] Office Visit [facility] ADULT [facility]AL [address] [place] [address] Harvinder Newberry documented as of this encounter Visit Diagnoses Not on filedocumented in this encounter Additional Health Concerns Assessment Noted Time PHQ-9 Depression Total Score: 19 024 3:19 PM EDT documented as of this encounter Care Teams Engraver Optical Frames Relationship Specialty Start Date End Date Martha Joyner MD [address] [place] [id number] PCP - General Family Medicine 02/22/21 [facility] Nurse Practitioner Endocrinology 01/08/24 documented as of this encounter
--- OUTSIDE RECORDS SUMMARY | 2024-11-04 07:00 | XMS_ITS | Encounter Summary ---
Author Organization [employer] Address [address] [place] [address] Care Team Providers Care Science Education Professor Name Role Phone Martha Joyner MD Primary Care Provider [phone] Reason for Visit * Reason Onset Date Comments Med Refill 03/16/2024 Encounter Details Date Type Department Care Team (Late st Contact Info) Description 03/16/2024 Telephone [facility] MEDICINE [address] [place], [place] [phone] Martha Joyner MD [address] [place] [address] Med Refill Social History Tobacco Use Types [...] 6.25 MG tablet To be sent to: [facility] documented in this encounter Plan of Treatment Upcoming Encounters Date Type Department Care Team (Late st Contact Info) Description 01/19/2025 8:00 AM EST Office Visit [facility] ADULT DENTAL [address] [place] [address] Harvinder Newberry documented as of this encounter Visit Diagnoses Not on filedocumented in this encounter Additional Health Concerns Assessment Noted Time PHQ-9 Depression Total Score: 19 024 3:19 PM EDT documented as of this encounter Care Teams Science Education Professor Relationship Specialty Start Date End Date Martha Joyner MD [address] [place] [address] PCP - General Family Medicine 02/22/21 [facility] Nurse Practitioner Endocrinology 01/08/24 documented as of this encounter
--- OUTSIDE RECORDS SUMMARY | 2024-11-04 07:00 | XMS_ITS | Encounter Summary ---
Author Organization [employer] Address [address] [place] [address] Care Team Providers Care Senior Android Developer Name Role Phone Martha Joyner MD Primary Care Provider [phone] Reason for Visit * Reason Comments Med Refill Encounter Details Date Type Department Care Team (Late st Contact Info) Description 10/15/2022 Refill [facility] MED & PEDS [address] [place] [address] Martha Joyner MD [address] [place] [address] Type 2 diabetes mellitus with hyperglycemia, without long-term current use of insulin ([facility]) Social History Tobacco Use Types [...] 01/19/2025 8:00 AM EST Office Visit [facility] ADULT DENTAL [address] [place] [address] Harvinder Newberry documented as of this encounter Visit Diagnoses Diagnosis Type 2 diabetes mellitus with hyperglycemia, without long-term current use of insulin ([facility]) documented in this encounter Additional Health Concerns Assessment Noted Time PHQ-9 Depression Total Score: 1 02/15/20 22 4:00 PM EST documented as of this encounter Care Teams Senior Android Developer Relationship Specialty Start Date End Date Martha Joyner MD [address] [place] [address] PCP - General Family Medicine 02/22/21 [facility] Nurse Practitioner Endocrinology 01/08/24 documented as of this encounter
--- OUTSIDE RECORDS SUMMARY | 2024-11-04 07:00 | XMS_ITS | Encounter Summary ---
Author Organization [employer] Address [address] [place] [address] Care Team Providers Care Leak Patcher Name Role Phone Martha Joyner MD Primary Care Provider [phone] Reason for Visit * Reason Comments Med Refill Encounter Details Date Type Department Care Team ([facility] st Contact Info) Description 03/11/2023 Telephone [facility] [address] [place], [place] [phone] Martha Joyner MD [address] [place] [address] Med Refill Social History Tobacco Use Types [...] as soon as possible? TC placed to [facility] urology @ [phone] to see if patient has been seen [...] chart. TC placed to [facility] @ [phone] to request U/S report be faxed to [facility] @ [phone]. They faxed it. TC placed to patient to encourage him to make a sooner appointment with urology or at least keep his upcoming appointment. No answer. LM to call us back. Routing to Dr. Doran so he is aware and back to [facility] nurses so they can try again. Patient has f/u with PCP scheduled for 04/02/23. Notes added to appointment for that day. documented in this encounter Plan of Treatment Upcoming Encounters Date Type Department Care Team (Late st Contact Info) Description 01/19/2025 8:00 AM EST Office Visit [facility] ADULT D[facility] [address] [place] [address] Harvinder Newberry documented as of this encounter Visit Diagnoses Not on filedocumented in this encounter Additional Health Concerns Assessment Noted Time PHQ-9 Depression Total Score: 1 02/15/20 4:00 PM EST documented as of this encounter Care Teams Leak Patcher Relationship Specialty Start Date End Date Martha Joyner MD [address] [place] [id number] PCP - General Family Medicine 02/22/21 [facility] Nurse Practitioner Endocrinology 01/08/24 documented as of this encounter
--- OUTSIDE RECORDS SUMMARY | 2024-11-04 07:00 | XMS_ITS | Clinical Summary ---
Author Organization [employer] Address [address] [place] [address] Care Team Providers Care Preparer Samples And Repairs Name Role Phone Martha Joyner MD Primary Care Provider [phone] Allergies No known active allergies Medications * [...] skin at bed time. 08/25/19 22 Active Ketotifen Fumarate 0.035 % solutionIndicati ons:Itch of eye Administer 1 drop into affected eye(s) 2 times daily. 10 mL 3 01/08/20 24 Active dapagliflozin (Farxiga) 10 MG Take 1 tablet (10 mg) by mouth Once per day. 30 tablet 11 05/19/19 25 026 Active clomiPHENE (Clomid) 50 MG tablet TAKE 1 TABLET BY MOUTH DAILY ON ON SATURDAY, SATURDAY AND Saturday03/24/19 25 Active Mounjaro 12.5 MG/0.5ML solution auto-injector INJECT ONE PEN (=12.5MG) SUBCUTANEOUSLY ONCE A WEEK DIRECTED 05/06/19 25 Active valsartan (Diovan) 320 MG tabletIndication s:Primary hypertension Take 1 tablet (320 mg) by mouth in the morning. 90 tablet 1 08/18/19 25 Active carvedilol (Coreg) 6.25 MG tablet Take 1 tablet (6.25 mg) by mouth with breakfast and with evening meal. 60 tablet 5 08/18/19 Active allopurinol (Zyloprim) 300 MG tabletIndication s:Gout, unspecified cause, unspecified chronicity, unspecified site Take 1 tablet (300 mg) by mouth at bedtime. 90 tablet 1 08/18/19 Active Continuous Glucose Epitaxial Reactor Operator (FreeStyle Jeannette 3 [place]) deviceIndication s:Type 2 diabetes mellitus with hyperglycemia, without long-term current use of insulin (CMS/HCC) 1 each Once per day. Use as directed for CGM 1 each 08/18/19 Active Continuous Glucose Sensor (FreeStyle Jeannette 3 Plus Sensor) miscIndications: Type 2 diabetes mellitus with hyperglycemia, without long-term current use of insulin (CMS/HCC) 1 each every 15 days. Apply 1 every 15 days as directed for CGM 2 each 08/18/19 Active Active Problems Problem Noted Date Diagnosed Date Itch of eye 01/08/2024 PTSD (post-traumatic stress disorder) 09/12/2023 Fractured dental religious with loss of materi al 07/31/2023 JERRY [...] medicine/surgery assessment. Hypertension 07/07/2021 Assessment & Plan (08/17/2024 10:20 AM EDT): Controlled. Target < 130/80 mmHg, slight elevated diastolic. Continue valsartan and BB. Followup 6 months Assessment & Plan (05/14/2023 12:12 AM EDT): Controlled. Continue current regimen. Assessment & Plan (2022 4:07 PM EDT): Controlled. Refilled and continue current regimen. Type 2 diabetes mellitus wit h hyperglycemia, without long-term current use of insulin 07/07/2021 Assessment & Plan (08/17/2024 10:21 AM EDT): Patient reports normal blood sugar levels but expresses frustration with finger stick monitoring due to denied continuous glucose monitoring (CGM) sensors. Recent HbA1c was 6.3%, slightly increased from 6.2% two months ago. Fasting glucose today was 128 mg/dL. Patient reports nocturnal hypoglycemic episodes (glucose levels 48-52 mg/dL) between 1-4 AM when using CGM. Currently on Mounjaro and Farxiga for diabetes management. Plan: - Continue Mounjaro (dose not specified) - Continue Farxiga (dose not specified) - Resubmit request for CGM sensors to insurance - If CGM denied, recommend glucose tablets for nocturnal hypoglycemia management - Follow up with clean up worker as scheduled in 2 months - Diabetic foot exam at next visit Assessment & Plan (08/05/2023 4:27 PM EDT): [...] = 109 Patient is managed by [facility]. His DM2 is trending in the [...] levels. Continue taking mounjaro as perscribed by clean up worker. Will montior and lower metformin as [...] elevated a1c of 10.7% and glucoe of [facility]. No measuring his glucose at [...] Encounters Date Type Department Care Team Description 09/01/2024 Orders Only GENERIC EXTERNAL DATA DEPARTMENT Provider, Generic External Data 09/01/2024 Results Follow-Up [facility] [address] [place] [address] Adriane Schultz MD Basic Metabolic Panel, Lipid Panel, Standard, Hepatic Function Panel, Hemoglobin A1c 08/17/2024 9:00 AM EDT Office Visit [facility] [address] [place] [address] Martha Joyner MD Colon cancer screening (Primary Dx); Type 2 diabetes mellitus with hyperglycemia, without long-term current use of insulin (CMS/HCC); Primary hypertension; Gout, unspecified cause, unspecified chronicity, unspecified site; Type 2 diabetes mellitus with hyperglycemia, without long-term current use of insulin ([facility]) 08/17/2024 Travel 08/14/2024 Telephone [facility] [address] [place] [address] Martha Joyner MD Chart Prep 08/06/2024 Patient Outreach [facility] [address] [place], [place] [phone] Martha Joyner MD Pre-visit Planning (Pre visit planning LVM ) 08/06/2024 Refill [facility] [address] [place] [address] Martha Joyner MD Primary hypertension from Last 3 Months Immunizations Immunization Administration Dates Next Due Tdap 04/10/2021 Social History Tobacco Use Types Packs/Day Years Used Date Smoking Tobacco: Never Passive Smoke Exposure: Never Smokeless Tobacco: Never Tobacco Cessation:Counseling Given: Not Answered Alcohol Use Standard Drinks/Week Comments Never 0 (1 standard drink = 0.6 oz pur e alcohol) Depression Answer Date Recorded Patient Health Questionnaire-9 Score 4 08/17/2024 Patient Health Questionnaire-9 Score 4 08/17/2024 Last PHQ-9: Questionnaire Data Not on file 0 08/17/2024 Housing Stability Answer Date Recorded What is [...] Answer Date Recorded Patient Health Questionnaire-2 Score 1 08/17/2024 Sex and Gender Information Value Date Recorded Sex Assigned at Male 01/01/2022 10:39 AM EDT Legal Sex Male 10:39 AM EDT Gender Identity Male 01/01/2022 10:39 AM EDT Sexual Orientation Straight 01/01/2022 10 :39 AM EDT Last Filed Vital Signs Vital Sign Reading Time Taken Comments Blood Pressure 128/84 08/17/2024 9:15 AM EDT Pulse 98 08/17/2024 9:15 AM EDT Temperature 36.8 C (98.2 F) 08/17/2024 9:15 AM EDT Respiratory Rate 18 08/17/2024 9:15 AM EDT Oxygen Saturation 99% 08/17/2024 9:15 AM EDT Inhaled Oxygen Concentration - - Weight 137 kg (303 lb) 08/17/2024 9:15 AM EDT Height 180.3 cm (5' 11 ) 08/17/2024 9:15 AM EDT Body Mass Index 42.26 08/17/2024 9:15 AM EDT Plan of Treatment Upcoming Encounters Date Type Department Care Team (Late st Contact Info) Description 01/19/2025 8:00 AM EST Office Visit [facility] [address] [place] [address] Harvinder Newberry Health Maintenance Due Date Last Done Comments Anal Pap 1979 CT Colonography 1979 Colonoscopy 1979 Colorectal Cancer Screening 1979 FIT DNA/Cologuard 1979 FIT 1979 FOBT 1979 Sigmoidoscopy 1979 Diabetes: Foot Exam 06/13/1989 Family Planning (PISQ) 06/13/1994 HPV Vaccines (1 - Male 3-dose series) 06/13/1994 Hepatitis A Vaccines (1 of 2 - Risk 2-dose series) 06/13/1998 Hepatitis B Vaccines (1 of 3 - 19+ 3-dose series) 06/13/1998 COVID-19 Vaccine (3 - 2023- season) 2023 02/21/2022, 08/03/2021 SDOH Screening 07/25/2024 07/26/2023 Influenza Vaccine (#1) 2024 Pneumococcal Vaccine: Pediatrics (0 to 5 Years) and At-Risk Patients (6 to 49) Years (1 of 2 - PCV) 01/07/2025 Postponed from 06/13/1998 (Patient Refused) Dental Oral Exam 01/18/2025 07/17/2024, 02/13/2024 Dental Prophylaxis 01/18/2025 07/17/2024, 01/20/2024 Dental X-Ray: Bitewings 01/20/2025 01/20/2024, 10/02 Diabetes: Hemoglobin A1C 03/04/2025 025, 08/17/2024, 05/25/2024, Additional history exists Diabetes: Urine Protein Screening 04/15/2025 04/15/2024, 11/09/2022, 05/18/2022, Additional history exists Alcohol/Substance Use Screening 08/17/2025 08/17/2024 Depression Screening 08/17/2025 08/17/2024, 08/18/19 Disability Screening 08/17/2025 08/17/2024 Tobacco Screening 08/17/2025 08/17/2024 Lipid Panel 09/01/2025 09/01/2024, 05/03, 04/15/2024, Additional history exists Eye Exam 11/18/2025 11/19/2023 [...] Procedure Name Priority Date/Time Associated Diagnosis Comments TESTOSTERONE, TOTAL, MALES (ADULT), IA Routine 09/01/2024 6:43 AM EDT LH Routine 09/01/2024 6:43 AM EDT HEMOGLOBIN A1C Routine 09/01/2024 6:43 AM EDT Type 2 diabetes mellitus with hyperglycemia, without long-term current use of insulin (CMS/HCC) HEPATIC FUNCTION PANEL Routine 09/01/2024 6:43 AM EDT Type 2 diabetes mellitus with hyperglycemia, without long-term current use of insulin (CMS/HCC) LIPID PANEL, STANDARD Routine 09/01/2024 6:43 AM EDT Type 2 diabetes mellitus with hyperglycemia, without long-term current use of insulin (CMS/HCC) BASIC METABOLIC PANEL Routine 09/01/2024 6:43 AM EDT Type 2 diabetes mellitus with hyperglycemia, without long-term current use of insulin (CMS/HCC) POCT GLYCATED HEMOGLOBIN, TOTAL Routine 08/17/2024 9:17 AM EDT Type 2 diabetes mellitus with hyperglycemia, without long-term current use of insulin (CMS/HCC) POCT GLUCOSE Routine 08/17/2024 9:16 AM EDT Type 2 diabetes mellitus with hyperglycemia, without long-term current use of insulin (CMS/HCC) Full PROPHYLAXIS - ADULT Routine 07/17/2024 8:00 AM EDT PERIODIC ORAL EVALUATION - ESTABLISHED PATIENT Routine 07/17/2024 8:00 AM EDT ALBUMIN, RANDOM URINE W/CREATININE Routine 04/15/2024 8:26 AM EST PANORAMIC RADIOGRAPHIC IMAGE Routine 02/13/2024 11:30 AM EST INTRAORAL - COMPLETE SERIES OF RADIOGRAPHIC IMAGES Routine 01/20/2024 3:00 PM EST HEPATITIS C ANTIBODY Routine 11/09/2022 9:00 AM EDT Type 2 diabetes mellitus with hyperglycemia, without long-term current use of insulin ([facility]) HIV 1/2 ANTIGEN/ANTIBODY, FOURTH GENERATION W/RFL Routine 05/26/2021 9:29 AM EDT from Last 3 Months or Most Recently Relevant to Health Maintenance Results * Testosterone, Total, males (Adult), IA (09/01/2024 6:43 AM EDT) Testosterone, Total 617 250 - 1100 ng/dL [facility] Comment:For additional infor mation, please refer tohttp://education.KakaMobi/faq/EhkhoRtpvyjbtuhxgJTKQHSNLS844(This link is being provided for informational/educational purposes only.)This test was developed and its analytical performancecharacteristics have been determined by [employer] [place]. It hasnot been cleared or approved by the U.S. Food and DrugAdministration. This assay has been validated pursuantto the CLIA regulations and is used for clinicalpurposes.THIS TEST WAS PERFORMED AT:[id number] [place] [address]AMYPEQOLAURY ELLIS MD,PHD 09/01/2024 6:43 AM EDT 09/01/2024 6:43 AM EDT us Generic External Data Provider LAB BLOOD ORDERAB LES Final Result [facility] [address] [place] [address] [phone] * (ABNORMAL) Hemoglobin A1c (09/01/2024 6:43 AM EDT) Hemoglobin A1c 6.5(H) <6.0 % [facility] Comment:Hemoglobin A1C Refer ence Range Adults: 4.8 - 6.0 % Non diabetic: < 6.0 % Goal: < 7.0 %Additional Action Suggested: > 8.0 %Note: Hemoglobin A1c results are invalid for patients with abnormal amounts of HbF. Blood transfusions may impact the HbA1c concentration in the patient sample. Estimated Average Glucose 140 mg/dL [facility] Comment:eAG = Estimated ave rage glucose which is %A1C expressed asaverage glucose, using the formula of the H2G-MajpqkaIjhctsn Glucose study (ADAG), Diabetes Care, Vol.31,#8,2007 Blood Venous blood specimen / Unknown 09/01/2024 6:43 AM EDT 09/01/2024 6:43 AM EDT us Adriane Schultz MD LAB BLOOD ORDERABLES Final Resul t Performing Organization Address [facility] de Phone Number [facility] [address] [place] [phone] * (ABNORMAL) LH (09/01/2024 6:43 AM EDT) Lutenizing Hormone 13.8(A) 1.5 - 9.3 mIU/mL [facility] Comment:THIS TEST WAS PERFOR MED AT:[facility] [place] [id number] FISHMAN MD 09/01/2024 6:43 AM EDT 09/01/2024 6:43 AM EDT us Generic External Data Provider LAB BLOOD ORDERAB LES Final Result Performing Organization Address [facility] Co de Phone Number [facility] [address] [place] [phone] * Hepatic Function Panel (09/01/2024 6:43 AM EDT) Bilirubin, Total 0.4 0.0 - 1.0 mg/dL [facility] Bilirubin, Direct 0.1 0.0 - 0.5 mg/dL [facility] Aspartate Amino Transferase 29 5 - 37 U/L [facility] Alanine Aminotransferase 29 0 - 40 U/L [facility] Total Protein 6.7 6.5 - 8.0 g/dL [facility] Albumin Level 3.7 3.5 - 5.0 g/dL [facility] Alkaline Phosphatase 61 39 - 117 U/L [facility] Blood Venous blood specimen / Unknown 09/01/2024 6:43 AM EDT 09/01/2024 6:43 AM EDT Adriane Schultz MD LAB BLOOD ORDERABLES Final Resul t Performing Organization Address [facility] de Phone Number [facility] [address] [place] [phone] * (ABNORMAL) Lipid Panel, Standard (09/01/2024 6:43 AM EDT) Triglycerides 191(H) <150 mg/dL [facility] Comment:Desirable Triglyceri de: less than 150 mg/dLBorderline High Triglyceride 150-199 mg/dLHigh Triglyceride: 200-499 mg/dLVery High Triglyceride: greater than or equal to 5OO mg/dL Cholesterol 152 <200 mg/dL [facility] Comment:Desirable Cholestero l: less than 200 mg/dLBorderline High Cholesterol: 200-239 mg/dLHigh Cholesterol: greater than 239 mg/dL LDL Cholesterol Calculated 78 <100 mg/dL [facility] Comment:Desirable LDL: less than 100 mg/dLNear Optimal/Above Optimal LDL: 110- 129 mg/dLBorderline High LDL: 130-159 mg/dLHigh LDL: 160-189 mg/dLVery High LDL: greater than or equal to 190 mg/dL HDL Cholesterol 36(L) >40 mg/dL [facility] Comment:Desirable HDL: great er than 40 mg/dL Note: This HDL assay may give artificially low results in patients with liver disease. Blood Venous blood specimen / Unknown 09/01/2024 6:43 AM EDT 09/01/2024 6:43 AM EDT us Adriane Schultz MD LAB BLOOD ORDERABLES Final Resul t [facility] [address] [place] [phone] * (ABNORMAL) Basic Metabolic Panel (09/01/2024 6:43 AM EDT) Sodium 139 135 - 145 mmol/L [facility] Potassium 4.5 3.3 - 5.1 mmol/L [facility] Chloride 106 96 - 108 mmol/L [facility] Carbon Dioxide 25 22 - 29 mmol/L [facility] Anion Gap 13 12 - 20 [facility] Urea Nitrogen (BUN) 25(H) 9 - 16 mg/dL [facility] Creatinine, Serum 1.42(H) 0.5 - 1.4 mg/dL [facility] Estimated Glomerular Filt Rate 54 [facility] Comment:Chronic Kidney Disea se: Estimated GFR < 60 mL/min/1.38v2Jlmmbn Kidney Disease: Estimated GFR < 15 mL/min/1.73m2 Glucose 138(H) 60 - 115 mg/dL [facility] Calcium 9.0 8.4 - 10.2 mg/dL [facility] Blood Venous blood specimen / Unknown 09/01/2024 6:43 AM EDT 09/01/2024 6:43 AM EDT us Adriane Schultz MD LAB BLOOD ORDERABLES Final Resul t [facility] [address] [place] [phone] [phone] * (ABNORMAL) POCT A1C (08/17/2024 9:17 AM EDT) Hemoglobin A1C 6.3(A) 4.0 - 6.0 % QC Media Lot # Comment:[id number] Lot# Expiration Date Comment:03/25/2026 Blood 08/17/2024 9:17 AM EDT us Martha Joyner MD POINT OF CARE TEST ENTER/EDIT ORDERABLES Final Result * POCT glucose manually resulted (08/17/2024 9:16 AM EDT) Glucose Blood, POC 128 60 - 200 mg/dL QC Media Lot # Comment:[id number] Lot# Expiration Date Comment:11/15/2024 Blood Capillary blood specimen / Unknown 08/17/2024 9:16 AM EDT us Martha Joyner MD POINT OF CARE TEST ENTER/EDIT ORDERABLES Final Result * (ABNORMAL) Albumin, Random Urine W/Creatinine (04/15/2024 8:26 AM EST) Creatinine, Urine 142.30 mg/dL [facility] Microalbumin Urine >2,000.0 mg/L [facility] Microalbum Creatinine Ratio Ur 1,405.4(H ) <30 ug/mg cr [facility] Comment:Albumin/Creatinine R atio Reference Ranges: Normal: < 30 ug/mg creatinine Microalbuminuria: 30 - 300 ug/mg creatinineClinical Albuminuria: > 300 ug/mg creatinine 04/15/2024 8:26 AM EST 04/15/2024 9:32 AM EST us Generic External Data Provider LAB URINE ORDERAB LES Final Result Performing Organization Address [facility] Co de Phone Number [facility] [address] [place] [phone] * Hepatitis C Ab (11/09/2022 9:00 AM EDT) Hepatitis C Antibody Nonreactive Nonreactive [facility] Comment:Antibodies to HCV no t detected; does not exclude early acuteHCV infection. Blood 11/09/2022 9:00 AM EDT 11/09/2022 2:35 PM EDT us Martha Joyner MD LAB BLOOD ORDERABLES Final Re sult [facility] [address] [place] [phone] * HIV 1/2 ANTIGEN/ANTIBODY,FOURTH GENERATION W/RFL (05/26/2021 9:29 AM EDT) HIV-1/2 ANTIGEN AND ANTIBODIES, 4TH GENERATION W/ REFLEX NON-REACT TABITHA NON-REACT TABITHA [facility] Comment: HIV-1 antigen and HIV-1/HIV-2 antibodies were not detected. There is no laboratory evidence of HIV infection. PLEASE NOTE: This information has been disclosed to you from records whose confidentiality may be protected by state law. If your state requires such protection, then the state law prohibits you from making any further disclosure of the information without the specific written consent of the person to whom it pertains, or as otherwise permitted by law. A general authorization for the release of medical or other information is NOT sufficient for this purpose. For additional information please refer to http://education.KakaMobi/faq/DJL199 (This link is being provided for informational/ educational purposes only.) The performance of this assay has not been clinically validated in patients less than 2 years old. 05/26/2021 9:29 AM EDT us Martha Joyner MD LAB BLOOD ORDERABLES Final Re sult Performing Organization Address City/State/[facility] Co de Phone Number [facility] [address] from Last 3 Months or Most Recently Relevant to Health Maintenance Insurance [facility] DENTAL - HSN PARTIAL (MEDICAID) Care Teams Preparer Samples And Repairs Relationship Specialty Start Date End Date Martha Joyner MD [address] [place] [phone] PCP - General Family Medicine 02/22/21 [facility] Nurse Practitioner Endocrinology 01/08/24
--- OUTSIDE RECORDS SUMMARY | 2024-11-04 07:01 | XMS_ITS | Encounter Summary ---
Author Organization [facility] Address [address] [phone] Phone Care Team Providers Care Driver License Examiner Name Role Phone Martha Joyner MD Primary Care Provider [phone] Encounter Details Date Type Department Care Team (Late st Contact Info) Description 06/29/2021 Documentation Only [facility] [address] [place] [address] Martha Joyner MD [address] [place] [address] [phone] Social History Tobacco Use Types Packs/Day Years [...] Visit [facility] [address] [place] [address] Jose Guadalupe Coleman MD [address] [place] [address] [place] [phone] documented as of this encounter Visit Diagnoses Not on filedocumented in this encounter Care Teams Driver License Examiner Relationship Specialty Start Date End Date Martha Joyner MD PCP - General Family Medicine 06/29/21 documented as of this encounter
--- OUTSIDE RECORDS SUMMARY | 2024-11-04 07:01 | XMS_ITS | Encounter Summary ---
Author Organization [employer] Address [address] [place] [address] Care Team Providers Care Leguillon Debeader Name Role Phone Martha Joyner MD Primary Care Provider [phone] Reason for Visit * Reason Comments Med Refill Encounter Details Date Type Department Care Team ([facility] st Contact Info) Description 07/21/2023 Refill [facility] [address] [place], [place] [phone] Martha Joyner MD [address] [place] [address] Type 2 diabetes mellitus with hyperglycemia, without long-term current use of insulin ([facility]) Social History Tobacco Use Types [...] 01/19/2025 8:00 AM EST Office Visit [facility] [address] [place] [address] Harvinder Newberry documented as of this encounter Visit Diagnoses Diagnosis Type 2 diabetes mellitus with hyperglycemia, without long-term current use of insulin ([facility]) documented in this encounter Additional Health Concerns Assessment Noted Time PHQ-9 Depression Total Score: 17 024 5:09 PM EDT documented as of this encounter Care Teams Leguillon Debeader Relationship Specialty Start Date End Date Martha Joyner MD [address] [place] [phone] PCP - General Family Medicine 02/22/21 [facility] Nurse Practitioner Endocrinology 01/08/24 documented as of this encounter
--- OUTSIDE RECORDS SUMMARY | 2024-11-04 07:01 | XMS_ITS | Encounter Summary ---
Author Organization [employer] Address [address] 7t [place] [address] Care Team Providers Care Gas Meter Reader Name Role Phone Martha Joyner MD Primary Care Provider [phone] Encounter Details Date Type Department Care Team (Late Contact Info) Description 02/15/2022 Orders Only [facility] [address] [place], [place] [phone] Martha Joyner MD [address] [place], [place] [phone] Type 2 diabetes mellitus with hyperglycemia, without long-term current use of insulin ([facility]) (Primary Dx) Social History Tobacco Use Types [...] Description 01/19/2025 8:00 AM EST Office Visit [facility] ADULT [facility] [address] [place] [address] Harvinder Newberry documented as of this encounter Procedures Procedure Name Priority Date/Time Associated Diagnosis Comments ALBUMIN, RANDOM URINE W/CREATININE Routine 11/09/2022 9:05 AM EDT Type 2 diabetes mellitus with hyperglycemia, without long-term current use of insulin (CMS/HCC) COMPREHENSIVE METABOLIC PANEL, FASTING Routine 11/09/2022 9:00 AM EDT Type 2 diabetes mellitus with hyperglycemia, without long-term current use of insulin (CMS/[facility]) SED RATE BY MODIFIED WESTERGREN Routine 11/09/2022 9:00 AM EDT Type 2 diabetes mellitus with hyperglycemia, without long-term current use of insulin ([facility]) GLUCOSE, WHOLE BLOOD Routine 07/27/2022 2:52 PM EDT Type 2 diabetes mellitus with hyperglycemia, without long-term current use of insulin (CMS/[facility]) ALBUMIN, RANDOM URINE W/CREATININE Routine 05/18/2022 11:59 AM EDT Type 2 diabetes mellitus with hyperglycemia, without long-term current use of insulin (CMS/[facility]) LIPID PANEL, STANDARD Routine 05/18/2022 11:47 AM EDT Type 2 diabetes mellitus with hyperglycemia, without long-term current use of insulin (CMS/[facility]) GLUCOSE, WHOLE BLOOD Routine 05/18/2022 10:23 AM EDT Type 2 diabetes mellitus with hyperglycemia, without long-term current use of insulin (CMS/HCC) documented in this encounter Results * (ABNORMAL) Albumin, Random Urine W/Creatinine (11/09/2022 9:05 AM EDT) Creatinine, Urine 97.12 mg/dL [facility] Microalbumin Urine 900.0 mg/L H [facility] Microalbum Creatinine Ratio Ur 926.6(H) <30 ug/mg cr [facility] Comment:Albumin/Creatinine R atio Reference Ranges: Normal: < 30 ug/mg creatinine Microalbuminuria: 30 - 300 ug/mg creatinineClinical Albuminuria: > 300 ug/mg creatinine 11/09/2022 9:05 AM EDT 11/09/2022 2:30 PM EDT Martha Joyner MD LAB URINE ORDERABLES Final Re sult Performing Organization Address [facility] de Phone Number [facility] [address] [place] [phone] * (ABNORMAL) Sed Rate by Modified Westergren (11/09/2022 9:00 AM EDT) Erythrocyte Sedimentation Rate 34(H) 0 - 15 MM/HR [facility] Comment:Patients with polycy themia and many hemoglobin abnormalitiesmay have depressed sed rates whereas patients with anemiamay have elevated sed rates. 11/09/2022 9:00 AM EDT 11/09/2022 2:45 PM EDT Martha Joyner MD LAB BLOOD ORDERABLES Final Re sult Performing Organization Address [facility] de Phone Number [facility] [address] [place] [phone] * (ABNORMAL) Comprehensive Metabolic Panel, Fasting (11/09/2022 9:00 AM EDT) Sodium 139 135 - 145 mmol/L [facility] Potassium 4.5 3.3 - 5.1 mmol/L [facility] Chloride 106 96 - 108 mmol/L [facility] Carbon Dioxide 25 22 - 29 mmol/L [facility] Anion Gap 13 12 - 20 [facility] Urea Nitrogen (BUN) 26(H) 9 - 16 mg/dL [facility] Creatinine, Serum 1.35 0.5 - 1.4 mg/dL [facility] Estimated Glomerular Filt Rate 58 [facility] Comment:NOTE: For -Am erican individuals, multiply the result by 1.210.Chronic Kidney Disease: Estimated GFR < 60 mL/min/1.78a5Qatyft Kidney Disease: Estimated GFR < 15 mL/min/1.73m2 Glucose Fasting 109(H) 60 - 99 mg/dL [facility] Comment:A fasting glucose fr om 100-125 mg/dl is considered impaired(pre-diabetes). Calcium 10.1 8.4 - 10.2 mg/dL [facility] Bilirubin, Total 0.4 0.0 - 1.0 mg/dL [facility] Aspartate Amino Transferase 30 5 - 37 U/L [facility] Alanine Aminotransferase 27 0 - 40 U/L [facility] Total Protein 7.5 6.5 - 8.0 g/dL [facility] Albumin Level 3.9 3.5 - 5.0 g/dL [facility] Alkaline Phosphatase 78 39 - 117 U/L [facility] 11/09/2022 9:00 AM EDT 11/09/2022 2:45 PM EDT Martha Joyner MD LAB BLOOD ORDERABLES Final Re sult Performing Organization Address [facility]/ZIP Co de Phone Number [facility] [address] [place] [phone] * (ABNORMAL) Glucose, Whole Blood (07/27/2022 2:52 PM EDT) Glucose, Whole Blood 183(H) 60 - 115 mg/dL [facility] Comment:METER #: [id number] 5Testing performed in the Endocrinology Department [address] , [address], [facility]. 07/27/2022 2:52 PM EDT 07/27/2022 2:56 PM EDT [facility] External Provider LAB BLO OD ORDERABLES Final Result Performing Organization Address [facility]/ZIP Co de Phone Number [facility] [address] [place] [address] [phone] * Albumin, Random Urine W/Creatinine (05/18/2022 11:59 AM EDT) Creatinine, Urine 72.74 mg/dL [facility] Microalbumin Urine 747.0 mg/L [facility] Microalbum Creatinine Ratio Ur 1,026.9 ug/mg cr [facility] Comment:Albumin/Creatinine R atio Reference Ranges: Normal: < 30 ug/mg creatinine Microalbuminuria: 30 - 300 ug/mg creatinineClinical Albuminuria: > 300 ug/mg creatinine 05/18/2022 11:5 9 AM EDT 05/18/2022 1:23 PM EDT us [facility] External Provider LAB URI NE ORDERABLES Final Result [facility] [address] [place] [address] [phone] * Lipid Panel, Standard (05/18/2022 11:47 AM EDT) Triglycerides 243 mg/dL [facility] Comment:Desirable Triglyceri de: less than 150 mg/dLBorderline High Triglyceride 150-199 mg/dLHigh Triglyceride: 200-499 mg/dLVery High Triglyceride: greater than or equal to 5OO mg/dL Cholesterol 152 mg/dL [facility] Comment:Desirable Cholestero l: less than 200 mg/dLBorderline High Cholesterol: 200-239 mg/dLHigh Cholesterol: greater than 239 mg/dL LDL Cholesterol Calculated 70 mg/dl [facility] Comment:Desirable LDL: less than 100 mg/dLNear Optimal/Above Optimal LDL: 110- 129 mg/dLBorderline High LDL: 130-159 mg/dLHigh LDL: 160-189 mg/dLVery High LDL: greater than or equal to 190 mg/dL HDL Cholesterol 34 mg/dL [facility] Comment:Desirable HDL: great er than 40 mg/dL Note: This HDL assay may give artificially low results in patients with liver disease. 05/18/2022 11:4 7 AM EDT 05/18/2022 1:23 PM EDT [facility] External Provider LAB BLO OD ORDERABLES Final Result Performing Organization Address [facility] de Phone Number [facility] [address] [place] [phone] * (ABNORMAL) Glucose, Whole Blood (05/18/2022 10:23 AM EDT) Glucose, Whole Blood 172(H) 60 - 115 mg/dL [facility] Comment:METER #: [id number] 5Testing performed in the Endocrinology Department [address] , [address], [facility]. 05/18/2022 10:2 3 AM EDT 05/18/2022 10:28 AM EDT [facility] External Provider LAB BLO OD ORDERABLES Final Result Performing Organization Address [facility] de Phone Number [facility] [address] [place] [address] [phone] documented in this encounter Visit Diagnoses Diagnosis Type 2 diabetes mellitus with hyperglycemia, without long-term current use of insulin ([facility])- Primary documented in this encounter Additional Health Concerns Assessment Noted Time PHQ-9 Depression Total Score: 1 02/15/20 22 4:00 PM EST documented as of this encounter Care Teams Gas Meter Reader Relationship Specialty Start Date End Date Martha Joyner MD [address] [place] [address] PCP - General Family Medicine 02/22/21 [facility] Nurse Practitioner Endocrinology 01/08/24 documented as of this encounter
--- OUTSIDE RECORDS SUMMARY | 2024-11-04 07:01 | XMS_ITS | Encounter Summary ---
Author Organization [employer] Address [address] 7[address] [place] [address] Care Team Providers Care Drums Teacher Name Role Phone Martha Joyner MD Primary Care Provider [phone] Encounter Details Date Type Department Care Team ([facility] st Contact Info) Description 05/01/[address] [facility] CHC MED & PEDS [address] [place], [place] [phone] Martha Joyner MD [address] [place], [place] [phone] Social History Tobacco Use Types Packs/Day Years [...] [facility] [address] [place] [address] Harvinder Newberry documented as of this encounter Visit Diagnoses Not on filedocumented in this encounter Additional Health Concerns Assessment Noted Time PHQ-9 Depression Total Score: 1 02/15/20 22 4:00 PM EST documented as of this encounter Care Teams Drums Teacher Relationship Specialty Start Date End Date Martha Joyner MD [address] [place] [phone] PCP - General Family Medicine 02/22/21 [facility] Nurse Practitioner Endocrinology 01/08/24 documented as of this encounter
--- OUTSIDE RECORDS SUMMARY | 2024-11-04 07:01 | XMS_ITS | Encounter Summary ---
Author Organization [facility] Address [address] [phone] Phone Care Team Providers Care Nursery Teacher Name Role Phone Martha Joyner MD Primary Care Provider [phone] Encounter Details Date Type Department Care Team (Late st Contact Info) Description 06/29/2021 Documentation Only [facility] [address] [place] [address] Martha Joyner MD [address] [place] [address] [phone] Social History Tobacco Use Types Packs/Day Years [...] Visit [facility] [address] [place] [address] Jose Guadalupe Coleman MD [address] [place] [address] [place] [phone] documented as of this encounter Visit Diagnoses Not on filedocumented in this encounter Care Teams Nursery Teacher Relationship Specialty Start Date End Date Martha Joyner MD PCP - General Family Medicine 06/29/21 documented as of this encounter
--- OUTSIDE RECORDS SUMMARY | 2024-11-04 07:01 | XMS_ITS | Encounter Summary ---
Author Organization [employer] Address [address] [place] [address] Care Team Providers Care Audio/Video Engineer Name Role Phone Martha Joyner MD Primary Care Provider [phone] Reason for Visit * Reason Comments Med Refill Encounter Details Date Type Department Care Team ([facility] st Contact Info) Description 05/30/[address] [facility] CHC MED & PEDS [address] [place], [place] [phone] Martha Joyner MD 505 [place] [address] Primary hypertension Social History Tobacco Use Types [...] Description 01/19/2025 8:00 AM EST Office Visit [facility] CHC ADULT DENTAL [address] [place] [address] Harvinder Newberry documented as of this encounter Visit Diagnoses Diagnosis Primary hypertension Unspecified essential hypertension documented in this encounter Additional Health Concerns Assessment Noted Time PHQ-9 Depression Total Score: 1 02/15/20 22 4:00 PM EST documented as of this encounter Care Teams Audio/Video Engineer Relationship Specialty Start Date End Date Martha Joyner MD [address] [place] [address] PCP - General Family Medicine 02/22/21 [facility] Nurse Practitioner Endocrinology 01/08/24 documented as of this encounter
[2024-11-04 07:57] LABS: Hemoglobin A1C 217.8526 umol/L; Total Hemoglobin (HGBA1C) 4238.1643 umol/L
[2024-11-04 08:13] LABS: B Type Natriuretic Peptide < 10 pg/mL (<100)
[2024-11-04 08:16] LABS: Alanine Aminotransferase 29 U/L (0-40); Albumin Level 3.8 g/dL (3.5-5.0); Alkaline Phosphatase 64 U/L (39-117); Anion Gap 12 (12-20); Aspartate Amino Transferase 35 U/L (5-37); Blood Urea Nitrogen 24 mg/dL (9-16); Calcium 8.6 mg/dL (8.4-10.2); Carbon Dioxide 24 mmol/L (22-29); Chloride 109 mmol/L (96-108); Cholesterol 150 mg/dL (<200); Estimated Glomerular Filt Rate 46; HDL Cholesterol 32 mg/dL (>40); Potassium 4.7 mmol/L (3.3-5.1); Sodium 140 mmol/L (135-145); Total Protein 6.7 g/dL (6.5-8.0); Triglycerides 190 mg/dL (<150)
== END 2024-11-04 06:56 | disposition home or self-care (01) ==
LOC: HO.LAB 06:55
PROVIDERS: PCP Family Medicine; Visit Provider Physician Assistant
DX: I12.9 Hypertensive chronic kidney disease with stage 1 through stage 4 chronic kidney disease, or unspecified chronic kidney disease (principal); E11.22 Type 2 diabetes mellitus with diabetic chronic kidney disease; N18.30 Chronic kidney disease, stage 3 unspecified; R80.9 Proteinuria, unspecified
CPT/HCPCS: 36415; 80053; 80061; 83036; 83880

== ENCOUNTER 2024-11-09 07:53 | Outpatient (AMB) | payer OTHER, SELFPAY ==
--- OUTSIDE RECORDS SUMMARY | 2024-11-09 07:56 | XMS_ITS | Encounter Summary ---
Author Organization [email or web address] Address [address] 7t [place] [address] Care Team Providers Care Manager Transmission Name Role Phone Martha Joyner MD Primary Care Provider [phone] Reason for Visit * Reason Comments Med Refill Encounter Details Date Type Department Care Team ([facility] st Contact Info) Description 07/21/2023 Refill [facility] CH[facility] MED & PEDS 505 [place], [place] [phone] Martha Joyner MD 505 [place] [address] Type 2 diabetes mellitus with hyperglycemia, without long-term current use of insulin ([facility]) Social History Tobacco Use Types Packs/Day Years [...] Description 01/19/2025 8:00 AM EST Office Visit [facility] ADULT D[facility] [address] [place] [address] Harvinder Newberry documented as of this encounter Visit Diagnoses Diagnosis Type 2 diabetes mellitus with hyperglycemia, without long-term current use of insulin ([facility]) documented in this encounter Additional Health Concerns Assessment Noted Time PHQ-9 Depression Total Score: 17 024 5:09 PM EDT documented as of this encounter Care Teams Manager Transmission Relationship Specialty Start Date End Date Martha Joyner MD [address] [place] [phone] PCP - General Family Medicine 02/22/21 [facility] Nurse Practitioner Endocrinology 01/08/24 documented as of this encounter
--- OUTSIDE RECORDS SUMMARY | 2024-11-09 07:56 | XMS_ITS | Encounter Summary ---
Author Organization [employer] Address [address] [place] [address] Care Team Providers Care Telecommunications Operator Name Role Phone Martha Joyner MD Primary Care Provider [phone] Reason for Visit * Reason Onset Date Comments Nurse Triage 11/20/2023 Encounter Details Date Type Department Care Team ([facility] st Contact Info) Description 11/20/2023 Telephone [facility] MEDICINE [address] [place], [place] [phone] Martha Joyner MD [address] [place] [address] Nurse Triage Social History Tobacco Use Types [...] didn't answer. Left voice message to call [facility] triage line at [phone] * Telephone Encounter - [facility] [...] [facility] [address] [place] [address] Harvinder Newberry documented as of this encounter Visit Diagnoses Not on filedocumented in this encounter Additional Health Concerns Assessment Noted Time PHQ-9 Depression Total Score: 19 024 3:19 PM EDT documented as of this encounter Care Teams Telecommunications Operator Relationship Specialty Start Date End Date Martha Joyner MD [address] [place] [phone] PCP - General Family Medicine 02/22/21 [facility] Nurse Practitioner Endocrinology 01/08/24 documented as of this encounter
--- OUTSIDE RECORDS SUMMARY | 2024-11-09 07:56 | XMS_ITS | Encounter Summary ---
Author Organization [employer] Address [address] [place] [address] Care Team Providers Care Manager Of Exhibitions And Collections Name Role Phone Martha Joyner MD Primary Care Provider [phone] Encounter Details Date Type Department Care Team ([facility] st Contact Info) Description 05/01/2023 Telephone [facility] CHC MED & PEDS [address] [place], [place] [phone] Martha Joyner MD 505 [place], [place] [phone] Social History Tobacco Use Types Packs/Day Years [...] Description 01/19/2025 8:00 AM EST Office Visit [facility] ADULT DENTAL [address] [place] [address] Harvinder Newberry documented as of this encounter Visit Diagnoses Not on filedocumented in this encounter Additional Health Concerns Assessment Noted Time PHQ-9 Depression Total Score: 1 02/15/20 22 4:00 PM EST documented as of this encounter Care Teams Manager Of Exhibitions And Collections Relationship Specialty Start Date End Date Martha Joyner MD [address] [place] [address] PCP - General Family Medicine 02/22/21 [facility] Nurse Practitioner Endocrinology 01/08/24 documented as of this encounter
--- OUTSIDE RECORDS SUMMARY | 2024-11-09 07:56 | XMS_ITS | Encounter Summary ---
Author Organization [facility] Address [address] [address] Phone Care Team Providers Care It Help Desk Technician Name Role Phone Martha Joyner MD Primary Care Provider [phone] Encounter Details Date Type Department Care Team (Late st Contact Info) Description 06/29/2021 Documentation Only [facility] [address] [place] [phone] Martha Joyner MD [address] [place] [address] [phone] Social History Tobacco Use Types Packs/Day Years Used Date Smoking Tobacco: Never Assessed Sex and Gender Information Value Date Recorded Sex Assigned at Not on file Legal Sex Male 11:06 AM EDT Gender Identity Not on file Sexual Orientation Not on file documented as of this encounter Plan of Treatment Upcoming Encounters Date Type Department Care Team (Late st Contact Info) Description 12/23/2024 2:30 PM EDT Office Visit [facility] [address] [place] [address] Jose Guadalupe Coleman MD [address] [place] [address] [place] [phone] documented as of this encounter Visit Diagnoses Not on filedocumented in this encounter Care Teams It Help Desk Technician Relationship Specialty Start Date End Date Martha Joyner MD PCP - General Family Medicine 06/29/21 documented as of this encounter
--- OUTSIDE RECORDS SUMMARY | 2024-11-09 07:56 | XMS_ITS | Encounter Summary ---
Author Organization [employer] Address [address] [place] [address] Care Team Providers Care Photovoltaic Installation Technician Name Role Phone Martha Joyner MD Primary Care Provider [phone] Reason for Visit * Reason Comments Med Refill Encounter Details Date Type Department Care Team ([facility] Contact Info) Description 01/03/2023 Refill [facility] CHC MED & PEDS [address] [place], [place] [phone] Tereza Wagner MD 505 [place] [address] Social History Tobacco Use Types Packs/Day Years [...] Description 01/19/2025 8:00 AM EST Office Visit [facility] CHC ADULT DENTAL [address] [place] [address] Harvinder Newberry documented as of this encounter Visit Diagnoses Not on filedocumented in this encounter Additional Health Concerns Assessment Noted Time PHQ-9 Depression Total Score: 1 02/15/20 22 4:00 PM EST documented as of this encounter Care Teams Photovoltaic Installation Technician Relationship Specialty Start Date End Date Martha Joyner MD [address] [place] [phone] PCP - General Family Medicine 02/22/21 [facility] Nurse Practitioner Endocrinology 01/08/24 documented as of this encounter
--- OUTSIDE RECORDS SUMMARY | 2024-11-09 07:56 | XMS_ITS | Encounter Summary ---
Author Organization [employer] Address [address] [place] [address] Care Team Providers Care Roundhouse Firer/Fireman Name Role Phone Martha Joyner MD Primary Care Provider [phone] Encounter Details Date Type Department Care Team (Late st Contact Info) Description 11/04/2024 Orders Only GENERIC EXTERNAL DATA DEPARTMENT Provider, [...] [facility] ADULT DENTAL [address] [place] [address] Harvinder Newberry documented as of this encounter Procedures Procedure Name Priority Date/Time Associated Diagnosis Comments COMPREHENSIVE METABOLIC PANEL, FASTING Routine 11/04/2024 7:13 AM EDT B TYPE NATRIURETIC PEPTIDE (BNP) Routine 11/04/2024 7:13 AM EDT HEMOGLOBIN A1C Routine 11/04/2024 7:13 AM EDT LIPID PANEL, STANDARD Routine 11/04/2024 7:13 AM EDT documented in this encounter Results * (ABNORMAL) Lipid Panel, Standard (11/04/2024 7:13 AM EDT) Triglycerides 190(H) <150 mg/dL [facility] Comment:Desirable Triglyceri de: less than 150 mg/dLBorderline High Triglyceride 150-199 mg/dLHigh Triglyceride: 200-499 mg/dLVery High Triglyceride: greater than or equal to 5OO mg/dL Cholesterol 150 <200 mg/dL [facility] Comment:Desirable Cholestero l: less than 200 mg/dLBorderline High Cholesterol: 200-239 mg/dLHigh Cholesterol: greater than 239 mg/dL LDL Cholesterol Calculated 80 <100 mg/dL [facility] Comment:Desirable LDL: less than 100 mg/dLNear Optimal/Above Optimal LDL: 110- 129 mg/dLBorderline High LDL: 130-159 mg/dLHigh LDL: 160-189 mg/dLVery High LDL: greater than or equal to 190 mg/dL HDL Cholesterol 32(L) >40 mg/dL [facility] Comment:Desirable HDL: great er than 40 mg/dL Note: This HDL assay may give artificially low results in patients with liver disease. 11/04/2024 7:13 AM EDT 11/04/2024 7:13 AM EDT us Generic External Data Provider LAB BLOOD ORDERAB LES Final Result [facility] [address] [place] [address] [phone] * (ABNORMAL) Comprehensive Metabolic Panel, Fasting (11/04/2024 7:13 AM EDT) Sodium 140 135 - 145 mmol/L [facility] Potassium 4.7 3.3 - 5.1 mmol/L [facility] Chloride 109(H) 96 - 108 mmol/L [facility] Carbon Dioxide 24 22 - 29 mmol/L [facility] Anion Gap 12 12 - 20 [facility] Urea Nitrogen (BUN) 24(H) 9 - 16 mg/dL [facility] Creatinine, Serum 1.64(H) 0.5 - 1.4 mg/dL [facility] Estimated Glomerular Filt Rate 46 [facility] Comment:Chronic Kidney Disea se: Estimated GFR < 60 mL/min/1.51v5Lplsur Kidney Disease: Estimated GFR < 15 mL/min/1.73m2 Glucose Fasting 142(H) 60 - 99 mg/dL [facility] Comment:A fasting glucose of 126 mg/dl or greater on more than oneoccasion is considered diagnostic of diabetes. Calcium 8.6 8.4 - 10.2 mg/dL [facility] Bilirubin, Total 0.3 0.0 - 1.0 mg/dL [facility] Aspartate Amino Transferase 35 5 - 37 U/L [facility] Alanine Aminotransferase 29 0 - 40 U/L [facility] Total Protein 6.7 6.5 - 8.0 g/dL [facility] Albumin Level 3.8 3.5 - 5.0 g/dL [facility] Alkaline Phosphatase 64 39 - 117 U/L [facility] 11/04/2024 7:13 AM EDT 11/04/2024 7:13 AM EDT Generic External Data Provider LAB BLOOD ORDERAB LES Final Result Performing Organization Address City/[facility]/ZIP Co de Phone Number [facility] [address] [place] [phone] * B Type Natriuretic Peptide (BNP) (11/04/2024 7:13 AM EDT) B Type Natriuretic Peptide <10 <100 pg/mL [facility] 11/04/2024 7:13 AM EDT 11/04/2024 7:13 AM EDT us Generic External Data Provider LAB BLOOD ORDERAB LES Final Result Performing Organization Address City/[facility]/ZIP Co de Phone Number [facility] [address] [place] [phone] * (ABNORMAL) Hemoglobin A1c (11/04/2024 7:13 AM EDT) Hemoglobin A1c 6.9(H) <6.0 % [facility] Comment:Hemoglobin A1C Refer ence Range Adults: 4.8 - 6.0 % Non diabetic: < 6.0 % Goal: < 7.0 %Additional Action Suggested: > 8.0 %Note: Hemoglobin A1c results are invalid for patients with abnormal amounts of HbF. Blood transfusions may impact the HbA1c concentration in the patient sample. Estimated Average Glucose 151 mg/dL [facility] Comment:eAG = Estimated ave rage glucose which is %A1C expressed asaverage glucose, using the formula of the Y1D-NoazywlLdajkyz Glucose study (ADAG), Diabetes Care, Vol.31,#8,Oct. 2007 11/04/2024 7:13 AM EDT 11/04/2024 7:13 AM EDT us Generic External Data Provider LAB BLOOD ORDERAB LES Final Result [facility] [address] [place] [phone] documented in this encounter Visit Diagnoses Not on filedocumented in this encounter Additional Health Concerns Assessment Noted Time PHQ-9 Depression Total Score: 4 08/18/19 25 9:22 AM EDT documented as of this encounter Care Teams Roundhouse Firer/Fireman Relationship Specialty Start Date End Date Martha Joyner MD [address] [place] [address] PCP - General Family Medicine 02/22/21 [facility] Nurse Practitioner Endocrinology 01/08/24 documented as of this encounter
--- OUTSIDE RECORDS SUMMARY | 2024-11-09 07:56 | XMS_ITS | Encounter Summary ---
Author Organization [employer] Address [address] [place] [address] Care Team Providers Care Metalizing Machine Operator Name Role Phone Martha Joyner MD Primary Care Provider [phone] Reason for Visit * Reason Comments Med Refill Encounter Details Date Type Department Care Team ([facility] st Contact Info) Description 03/11/2023 Telephone [facility] MED & PEDS [address] [place], [place] [phone] Martha Joyner MD [address] [place] [address] Med Refill Social History Tobacco Use Types [...] note were not included. MD Deya Bryson [facility] Med & Peds Nurses Caller: Unspecified (Yesterday, 1:10 PM) Hi! Please could you follow up on the urology referral I placed, and if a appointment already givencould it be scheduled as soon as possible? TC placed to [facility] urology @ [phone] to see if patient has been seen [...] chart. TC placed to [facility] @ [phone] to request U/S report be faxed to [facility] Urology @ [phone]. They faxed it. TC placed to patient to encourage him to make a sooner appointment with urology or at least keep his upcoming appointment. No answer. LM to call us back. Routing to Dr. Doran so he is aware and back to [facility] nurses so they can try again. Patient has f/u with PCP scheduled for 04/02/23. Notes added to appointment for that day. documented in this encounter Plan of Treatment Upcoming Encounters Date Type Department Care Team (Late st Contact Info) Description 01/19/2025 8:00 AM EST Office Visit [facility] ADULT DENTAL [address] [place] [address] Harvinder Newberry documented as of this encounter Visit Diagnoses Not on filedocumented in this encounter Additional Health Concerns Assessment Noted Time PHQ-9 Depression Total Score: 1 02/15/20 4:00 PM EST documented as of this encounter Care Teams Metalizing Machine Operator Relationship Specialty Start Date End Date Martha Joyner MD [address] [place] [phone] PCP - General Family Medicine 02/22/21 [facility] Nurse Practitioner Endocrinology 01/08/24 documented as of this encounter
--- OUTSIDE RECORDS SUMMARY | 2024-11-09 07:56 | XMS_ITS | Encounter Summary ---
Author Organization [facility] Address [address] [address] Phone Care Team Providers Care Tub Attendant Name Role Phone Martha Joyner MD Primary Care Provider [phone] Encounter Details Date Type Department Care Team (Late st Contact Info) Description 06/29/2021 Documentation Only [facility] [address] [place] [phone] Martha Joyner MD [address] [place] [address] [phone] Social History Tobacco Use Types Packs/Day Years [...] Visit [facility] [address] [place] [address] Jose Guaadlupe Coleman MD [address] [place] [address] [place] [phone] documented as of this encounter Visit Diagnoses Not on filedocumented in this encounter Care Teams Tub Attendant Relationship Specialty Start Date End Date Martha Joyner MD PCP - General Family Medicine 06/29/21 documented as of this encounter
--- OUTSIDE RECORDS SUMMARY | 2024-11-09 07:56 | XMS_ITS | Encounter Summary ---
Author Organization [employer] Address [address] [place] [address] Care Team Providers Care Court Reporter Name Role Phone Martha Joyner MD Primary Care Provider [phone] Reason for Visit * Reason Comments Med Refill Encounter Details Date Type Department Care Team ([facility] st Contact Info) Description 05/30/2023 Refill [facility] MED & PEDS [address] [place], [place] [phone] Martha Joyner MD [address] [place] [address] Primary hypertension Social History Tobacco Use Types [...] Description 01/19/2025 8:00 AM EST Office Visit [facility] ADULT DENTAL [address] [place] [address] Harvinder Newberry documented as of this encounter Visit Diagnoses Diagnosis Primary hypertension Unspecified essential hypertension documented in this encounter Additional Health Concerns Assessment Noted Time PHQ-9 Depression Total Score: 1 02/15/20 22 4:00 PM EST documented as of this encounter Care Teams Court Reporter Relationship Specialty Start Date End Date Martha Joyner MD [address] [place] [address] PCP - General Family Medicine 02/22/21 [facility] Nurse Practitioner Endocrinology 01/08/24 documented as of this encounter
--- OUTSIDE RECORDS SUMMARY | 2024-11-09 07:56 | XMS_ITS | Encounter Summary ---
Author Organization [facility] Address [address] [address] Phone Care Team Providers Care Brick Sorter Name Role Phone Martha Joyner MD Primary Care Provider [phone] Encounter Details Date Type Department Care Team (Late st Contact Info) Description 06/29/2021 Documentation Only [facility] [address] [place] [phone] Martha Joyner MD [address] [place] [address] [phone] Social History Tobacco Use Types Packs/Day Years [...] [facility] [address] [place] [address] Jose Guadalupe Coleman MD [address] [place] [address] [place] [phone] documented as of this encounter Visit Diagnoses Not on filedocumented in this encounter Care Teams Brick Sorter Relationship Specialty Start Date End Date Martha Joyner MD PCP - General Family Medicine 06/29/21 documented as of this encounter
--- OUTSIDE RECORDS SUMMARY | 2024-11-09 07:56 | XMS_ITS | Encounter Summary ---
Author Organization [employer] Address [address] [facility] [place] [address] Care Team Providers Care Sand Shoveler Name Role Phone Martha Joyner MD Primary Care Provider [phone] Reason for Visit * Reason Comments Med Refill Encounter Details Date Type Department Care Team (Late st Contact Info) Description 10/15/2022 Refill [facility] MED & PEDS [address] [place] [address] Martha Joyner MD [address] [place] [address] Type 2 diabetes mellitus with hyperglycemia, without long-term current use of insulin ([facility]) Social History Tobacco Use Types [...] Description 01/19/2025 8:00 AM EST Office Visit [facility] ADULT DENTAL [address] [place] [address] Harvinder Newberry documented as of this encounter Visit Diagnoses Diagnosis Type 2 diabetes mellitus with hyperglycemia, without long-term current use of insulin ([facility]) documented in this encounter Additional Health Concerns Assessment Noted Time PHQ-9 Depression Total Score: 1 02/15/20 22 4:00 PM EST documented as of this encounter Care Teams Sand Shoveler Relationship Specialty Start Date End Date Martha Joyner MD [address] [place] [address] PCP - General Family Medicine 02/22/21 [facility] Nurse Practitioner Endocrinology 01/08/24 documented as of this encounter
--- OUTSIDE RECORDS SUMMARY | 2024-11-09 07:56 | XMS_ITS | Clinical Summary ---
Author Organization [facility] [place], Address [address] [place] [address] [place] [address] Phone Care Team Providers Care Instrumentation Chemist Name Role Phone Martha Joyner MD Primary Care Provider [phone] Allergies Active Allergy Reactions Criticality Noted Date [...] DAILY UNTIL FINISHED 3 Active TechLite Pen [place] 31G X 5 MM [facility] USE DAILY WITH INSULIN 3 Active Mounjaro 2.5 MG/0.5ML solution pen-injector Inject 12.5 mg under the skin per week 3 Active carvedilol (COREG) 12.5 MG tablet TAKE ONE TABLET IN THE MORNING AND EVENING WITH FOOD 3 Active Continuous Blood Gluc Sensor (FreeStyle Jeannette 3 Sensor) [facility] USE DIRECTED TO TEST BLOOD SUGAR CHANGE [...] Visit [facility] [address] [place] [phone] Jose Guadalupe Coleman MD [address] [place] [address] Dr. [place] [phone] Health Maintenance Due Date Last Done Comments [...] history exists Influenza Vaccine (#1) 2024 Insurance [facility] Plan ([id number]) Care Teams Instrumentation Chemist Relationship Specialty Start Date End Date Martha Joyner MD PCP - General Family Medicine 06/29/21
--- OUTSIDE RECORDS SUMMARY | 2024-11-09 07:56 | XMS_ITS | Encounter Summary ---
Author Organization [employer] Address [address] [place] [address] Care Team Providers Care Supervising Librarian Name Role Phone Martha Joyner MD Primary Care Provider [phone] Reason for Visit * Reason Onset Date Comments Med Refill 03/16/2024 Encounter Details Date Type Department Care Team (Late st Contact Info) Description 03/16/2024 Telephone [facility] [address] [place], [place] [phone] Martha Joyner MD [address] [place] [address] Med Refill Social History Tobacco Use Types [...] 6.25 MG tablet To be sent to: [facility] documented in this encounter Plan of Treatment Upcoming Encounters Date Type Department Care Team (Late st Contact Info) Description 01/19/2025 8:00 AM EST Office Visit [facility] ADULT DENTAL [address] [place] [address] Harvinder Newberry documented as of this encounter Visit Diagnoses Not on filedocumented in this encounter Additional Health Concerns Assessment Noted Time PHQ-9 Depression Total Score: 19 024 3:19 PM EDT documented as of this encounter Care Teams Supervising Librarian Relationship Specialty Start Date End Date Martha Joyner MD [address] [place] [address] PCP - General Family Medicine 02/22/21 [facility] Nurse Practitioner Endocrinology 01/08/24 documented as of this encounter
--- OUTSIDE RECORDS SUMMARY | 2024-11-09 07:56 | XMS_ITS | Encounter Summary ---
Author Organization [employer] Address [address] [facility] [address] [place] [address] Care Team Providers Care Corporate Banking Officer Name Role Phone Martha Joyner MD Primary Care Provider Encounter Details Date Type Department Care Team (Late Contact Info) Description 02/15/2022 Orders Only [facility] [address] [place], [place] [phone] Martha Joyner MD [address] [place], [place] [phone] Type 2 diabetes mellitus with hyperglycemia, without long-term current use of insulin ([facility]) (Primary Dx) Social History Tobacco Use [...] Description 01/19/2025 8:00 AM EST Office Visit [facility] [address] [place] [phone] Harvinder Newberry documented as of this encounter Procedures Procedure Name Priority Date/Time Associated Diagnosis Comments ALBUMIN, RANDOM URINE W/CREATININE Routine 11/09/2022 9:05 AM EDT Type 2 diabetes mellitus with hyperglycemia, without long-term current use of insulin (CMS/HCC) COMPREHENSIVE METABOLIC PANEL, FASTING Routine 11/09/2022 9:00 AM EDT Type 2 diabetes mellitus with hyperglycemia, without long-term current use of insulin (CMS/[facility]) SED RATE BY MODIFIED WESTERGREN Routine 11/09/2022 9:00 AM EDT Type 2 diabetes mellitus with hyperglycemia, without long-term current use of insulin ([facility]) GLUCOSE, WHOLE BLOOD Routine 07/27/2022 2:52 PM EDT Type 2 diabetes mellitus with hyperglycemia, without long-term current use of insulin (CMS/[facility]) ALBUMIN, RANDOM URINE W/CREATININE Routine 05/18/2022 11:59 AM EDT Type 2 diabetes mellitus with hyperglycemia, without long-term current use of insulin (CMS/[facility]) LIPID PANEL, STANDARD Routine 05/18/2022 11:47 AM EDT Type 2 diabetes mellitus with hyperglycemia, without long-term current use of insulin (CMS/[facility]) GLUCOSE, WHOLE BLOOD Routine 05/18/2022 10:23 AM EDT Type 2 diabetes mellitus with hyperglycemia, without long-term current use of insulin (CMS/HCC) documented in this encounter Results * (ABNORMAL) Albumin, Random Urine W/Creatinine (11/09/2022 9:05 AM EDT) Creatinine, Urine 97.12 mg/dL [facility] Microalbumin Urine 900.0 mg/L H [facility] Microalbum Creatinine Ratio Ur 926.6(H) <30 ug/mg cr [facility] Comment:Albumin/Creatinine R atio Reference Ranges: Normal: < 30 ug/mg creatinine Microalbuminuria: 30 - 300 ug/mg creatinineClinical Albuminuria: > 300 ug/mg creatinine 11/09/2022 9:05 AM EDT 11/09/2022 2:30 PM EDT Martha Joyner MD LAB URINE ORDERABLES Final Re sult Performing Organization Address [facility] de Phone Number [facility] [address] [place] [phone] * (ABNORMAL) Sed Rate by Modified Westergren (11/09/2022 9:00 AM EDT) Erythrocyte Sedimentation Rate 34(H) 0 - 15 MM/HR [facility] Comment:Patients with polycy themia and many hemoglobin abnormalitiesmay have depressed sed rates whereas patients with anemiamay have elevated sed rates. 11/09/2022 9:00 AM EDT 11/09/2022 2:45 PM EDT Martha Joyner MD LAB BLOOD ORDERABLES Final Re sult Performing Organization Address [facility] de Phone Number [facility] [address] [place] [phone] * (ABNORMAL) Comprehensive Metabolic Panel, Fasting (11/09/2022 9:00 AM EDT) Sodium 139 135 - 145 mmol/L [facility] Potassium 4.5 3.3 - 5.1 mmol/L [facility] Chloride 106 96 - 108 mmol/L [facility] Carbon Dioxide 25 22 - 29 mmol/L [facility] Anion Gap 13 12 - 20 [facility] Urea Nitrogen (BUN) 26(H) 9 - 16 mg/dL [facility] Creatinine, Serum 1.35 0.5 - 1.4 mg/dL [facility] Estimated Glomerular Filt Rate 58 [facility] Comment:NOTE: For -Am erican individuals, multiply the result by 1.210.Chronic Kidney Disease: Estimated GFR < 60 mL/min/1.63k3Bllpuf Kidney Disease: Estimated GFR < 15 mL/min/1.73m2 Glucose Fasting 109(H) 60 - 99 mg/dL [facility] Comment:A fasting glucose fr om 100-125 mg/dl is considered impaired(pre-diabetes). Calcium 10.1 8.4 - 10.2 mg/dL [facility] Bilirubin, Total 0.4 0.0 - 1.0 mg/dL [facility] Aspartate Amino Transferase 30 5 - 37 U/L [facility] Alanine Aminotransferase 27 0 - 40 U/L [facility] Total Protein 7.5 6.5 - 8.0 g/dL [facility] Albumin Level 3.9 3.5 - 5.0 g/dL [facility] Alkaline Phosphatase 78 39 - 117 U/L [facility] 11/09/2022 9:00 AM EDT 11/09/2022 2:45 PM EDT Martha Joyner MD LAB BLOOD ORDERABLES Final Re sult Performing Organization Address [facility]/ZIP Co de Phone Number [facility] [address] [place] [phone] * (ABNORMAL) Glucose, Whole Blood (07/27/2022 2:52 PM EDT) Glucose, Whole Blood 183(H) 60 - 115 mg/dL [facility] Comment:METER #: [id number] 5Testing performed in the Endocrinology Department [address] , [address], [facility]. 07/27/2022 2:52 PM EDT 07/27/2022 2:56 PM EDT [facility] External Provider LAB BLO OD ORDERABLES Final Result Performing Organization Address [facility]/ZIP Co de Phone Number [facility] [address] [place] [phone] * Albumin, Random Urine W/Creatinine (05/18/2022 11:59 AM EDT) Creatinine, Urine 72.74 mg/dL [facility] Microalbumin Urine 747.0 mg/L [facility] Microalbum Creatinine Ratio Ur 1,026.9 ug/mg cr [facility] Comment:Albumin/Creatinine R atio Reference Ranges: Normal: < 30 ug/mg creatinine Microalbuminuria: 30 - 300 ug/mg creatinineClinical Albuminuria: > 300 ug/mg creatinine 05/18/2022 11:5 9 AM EDT 05/18/2022 1:23 PM EDT us [facility] External Provider LAB URI NE ORDERABLES Final Result [facility] [address] [place] [address] [phone] * Lipid Panel, Standard (05/18/2022 11:47 AM EDT) Triglycerides 243 mg/dL [facility] Comment:Desirable Triglyceri de: less than 150 mg/dLBorderline High Triglyceride 150-199 mg/dLHigh Triglyceride: 200-499 mg/dLVery High Triglyceride: greater than or equal to 5OO mg/dL Cholesterol 152 mg/dL [facility] Comment:Desirable Cholestero l: less than 200 mg/dLBorderline High Cholesterol: 200-239 mg/dLHigh Cholesterol: greater than 239 mg/dL LDL Cholesterol Calculated 70 mg/dl [facility] Comment:Desirable LDL: less than 100 mg/dLNear Optimal/Above Optimal LDL: 110- 129 mg/dLBorderline High LDL: 130-159 mg/dLHigh LDL: 160-189 mg/dLVery High LDL: greater than or equal to 190 mg/dL HDL Cholesterol 34 mg/dL [facility] Comment:Desirable HDL: great er than 40 mg/dL Note: This HDL assay may give artificially low results in patients with liver disease. 05/18/2022 11:4 7 AM EDT 05/18/2022 1:23 PM EDT [facility] External Provider LAB BLO OD ORDERABLES Final Result Performing Organization Address [facility] de Phone Number [facility] [address] [place] [phone] * (ABNORMAL) Glucose, Whole Blood (05/18/2022 10:23 AM EDT) Glucose, Whole Blood 172(H) 60 - 115 mg/dL [facility] Comment:METER #: [id number] 5Testing performed in the Endocrinology Department [address] , [address], [facility]. 05/18/2022 10:2 3 AM EDT 05/18/2022 10:28 AM EDT [facility] External Provider LAB BLO OD ORDERABLES Final Result Performing Organization Address [facility] de Phone Number [facility] [address] [place] [phone] documented in this encounter Visit Diagnoses Diagnosis Type 2 diabetes mellitus with hyperglycemia, without long-term current use of insulin ([facility])- Primary documented in this encounter Additional Health Concerns Assessment Noted Time PHQ-9 Depression Total Score: 1 02/15/20 22 4:00 PM EST documented as of this encounter Care Teams Corporate Banking Officer Relationship Specialty Start Date End Date Martha Joyner MD [address] [place] [phone] PCP - General Family Medicine 02/22/21 [facility] Nurse Practitioner Endocrinology 01/08/24 documented as of this encounter
--- OUTSIDE RECORDS SUMMARY | 2024-11-09 07:56 | XMS_ITS | Clinical Summary ---
Author Organization [employer] Address [address] [facility] [address] [facility] [address] [place] [address] Care Team Providers Care Meat Specialist Name Role Phone Martha Joyner MD Primary Care Provider [phone] Allergies No known active allergies Medications * [...] 90 tablet 1 08/18/19 Active Continuous Glucose Pin Inserter (FreeStyle Jeann[place] [address] [place]) deviceIndication s:Type 2 diabetes mellitus with hyperglycemia, [...] PTSD (post-traumatic stress disorder) 09/12/2023 Fractured dental islam with loss of materi al 07/31/2023 JERRY [...] nocturnal hypoglycemia management - Follow up with box sealing machine catcher as scheduled in 2 months - Diabetic [...] Glu = 109 Patient is managed by [facility] endo. His DM2 is trending in the [...] levels. Continue taking mounjaro as perscribed by box sealing machine catcher. Will montior and lower metformin as needed. [...] elevated a1c of 10.7% and glucoe of [facility]. No measuring his glucose at home, [...] Encounters Date Type Department Care Team Description 11/04/2024 Orders Only GENERIC EXTERNAL DATA DEPARTMENT Provider, Generic External Data 09/01/2024 Orders Only GENERIC EXTERNAL DATA DEPARTMENT Provider, Generic External Data 09/01/2024 Results Follow-Up [facility] [address] [place] [address] Adriane Schultz MD Basic Metabolic Panel, Lipid Panel, Standard, Hepatic Function Panel, Hemoglobin A1c 08/17/2024 9:00 AM EDT Office Visit [facility] [address] [place] [address] Martha Joyner MD Colon cancer screening (Primary Dx); Type 2 diabetes mellitus with hyperglycemia, without long-term current use of insulin ([facility]/HCC); Primary hypertension; Gout, unspecified cause, unspecified chronicity, unspecified site; Type 2 diabetes mellitus with hyperglycemia, without long-term current use of insulin ([facility]) 08/17/2024 Travel 08/14/2024 Telephone [facility] [address] [place] [address] Martha Joyner MD Chart Prep from Last 3 Months Immunizations Immunization Administration [...] Visit [facility] [address] [place] [address] Harvinder Newberry Health Maintenance Due Date Last [...] of 3 - 19+ 3-dose series) 06/13/1998 SDOH Screening 07/25/2024 07/26/2023 COVID-19 Vaccine (3 - 2024- season) 2024 02/21/2022, 08/03/2021 Influenza Vaccine (#1) 2024 Pneumococcal Vaccine: Pediatrics (0 to 5 Years) and At-Risk Patients (6 to 49) Years (1 of 2 - PCV) 01/07/2025 Postponed from 06/13/1998 (Patient Refused) Dental Oral Exam 01/18/2025 07/17/2024, 02/13/2024 Dental Prophylaxis 01/18/2025 07/17/2024, 01/20/2024 Dental X-Ray: Bitewings 01/20/2025 01/20/2024, 10/02 Diabetes: Urine Protein Screening 04/15/2025 04/15/2024, 11/09/2022, 05/18/2022, Additional history exists Diabetes: Hemoglobin A1C 05/04/2025 025, 09/01/2024, 08/17/2024, Additional history exists Alcohol/Substance Use Screening 08/17/2025 08/17/2024 Depression Screening 08/17/2025 08/17/2024, 08/18/19 Disability Screening 08/17/2025 08/17/2024 Tobacco Screening 08/17/2025 08/17/2024 Lipid Panel 11/04/2025 11/04/2024, 07/0 03/2024, 05/25/2024, Additional history exists Eye Exam 11/18/2025 11/19/2023 [...] Procedure Name Priority Date/Time Associated Diagnosis Comments LIPID PANEL, STANDARD Routine 11/04/2024 7:13 AM EDT COMPREHENSIVE METABOLIC PANEL, FASTING Routine 11/04/2024 7:13 AM EDT B TYPE NATRIURETIC PEPTIDE (BNP) Routine 11/04/2024 7:13 AM EDT HEMOGLOBIN A1C Routine 11/04/2024 7:13 AM EDT TESTOSTERONE, TOTAL, MALES (ADULT), IA Routine 09/01/2024 6:43 AM EDT LH Routine 09/01/2024 6:43 AM EDT HEMOGLOBIN A1C Routine 09/01/2024 6:43 AM EDT Type 2 diabetes mellitus with hyperglycemia, without long-term current use of insulin (CMS/HCC) HEPATIC FUNCTION PANEL Routine 6:43 AM EDT Type 2 diabetes mellitus [...] Relevant to Health Maintenance Results * (ABNORMAL) Comprehensive Metabolic Panel, Fasting (11/04/2024 7:13 AM EDT) Sodium 140 135 - 145 mmol/L [facility] Potassium 4.7 3.3 - 5.1 mmol/L [facility] Chloride 109(H) 96 - 108 mmol/L [facility] Carbon Dioxide 24 22 - 29 mmol/L [facility] Anion Gap 12 12 - 20 [facility] Urea Nitrogen (BUN) 24(H) 9 - 16 mg/dL [facility] Creatinine, Serum 1.64(H) 0.5 - 1.4 mg/dL [facility] Estimated Glomerular Filt Rate 46 [facility] Comment:Chronic Kidney Disea se: Estimated GFR < 60 mL/min/1.93m3Mqhxyc Kidney Disease: Estimated GFR < 15 mL/min/1.73m2 Glucose Fasting 142(H) 60 - 99 mg/dL [facility] Comment:A fasting glucose of 126 mg/dl or greater on more than oneoccasion is considered diagnostic of diabetes. Calcium 8.6 8.4 - 10.2 mg/dL [facility] Bilirubin, Total 0.3 0.0 - 1.0 mg/dL [facility] Aspartate Amino Transferase 35 5 - 37 U/L [facility] Alanine Aminotransferase 29 0 - 40 U/L [facility] Total Protein 6.7 6.5 - 8.0 g/dL [facility] Albumin Level 3.8 3.5 - 5.0 g/dL [facility] Alkaline Phosphatase 64 39 - 117 U/L [facility] 11/04/2024 7:13 AM EDT 11/04/2024 7:13 AM EDT us Generic External Data Provider LAB BLOOD ORDERAB LES Final Result Performing Organization Address City/[facility]/ZIP Co de Phone Number [facility] [address] [place] [address] [phone] * B Type Natriuretic Peptide (BNP) (11/04/2024 7:13 AM EDT) B Type Natriuretic Peptide <10 <100 pg/mL [facility] 11/04/2024 7:13 AM EDT 11/04/2024 7:13 AM EDT Generic External Data Provider LAB BLOOD ORDERAB LES Final Result Performing Organization Address [facility] Co de Phone Number [facility] [address] [place] [address] [phone] * (ABNORMAL) Hemoglobin A1c (11/04/2024 7:13 AM EDT) Only the most recent of2 resultswithin the time period is included. Hemoglobin A1c 6.9(H) <6.0 % [facility] Comment:Hemoglobin A1C Refer ence Range Adults: 4.8 - 6.0 % Non diabetic: < 6.0 % Goal: < 7.0 %Additional Action Suggested: > 8.0 %Note: Hemoglobin A1c results are invalid for patients with abnormal amounts of HbF. Blood transfusions may impact the HbA1c concentration in the patient sample. Estimated Average Glucose 151 mg/dL [facility] Comment:eAG = Estimated ave rage glucose which is %A1C expressed asaverage glucose, using the formula of the M1S-HxbalsgVimafaj Glucose study (ADAG), Diabetes Care, Vol.31,#8,2007 11/04/2024 7:13 AM EDT 11/04/2024 7:13 AM EDT us Generic External Data Provider LAB BLOOD ORDERAB LES Final Result [facility] [address] [place] [phone] * (ABNORMAL) Lipid Panel, Standard (11/04/2024 7:13 AM EDT) Only the most recent of2 resultswithin the time period is included. Triglycerides 190(H) <150 mg/dL [facility] Comment:Desirable Triglyceri de: less than 150 mg/dLBorderline High Triglyceride 150-199 mg/dLHigh Triglyceride: 200-499 mg/dLVery High Triglyceride: greater than or equal to 5OO mg/dL Cholesterol 150 <200 mg/dL [facility] Comment:Desirable Cholestero l: less than 200 mg/dLBorderline High Cholesterol: 200-239 mg/dLHigh Cholesterol: greater than 239 mg/dL LDL Cholesterol Calculated 80 <100 mg/dL [facility] Comment:Desirable LDL: less than 100 mg/dLNear Optimal/Above Optimal LDL: 110- 129 mg/dLBorderline High LDL: 130-159 mg/dLHigh LDL: 160-189 mg/dLVery High LDL: greater than or equal to 190 mg/dL HDL Cholesterol 32(L) >40 mg/dL [facility] Comment:Desirable HDL: great er than 40 mg/dL Note: This HDL assay may give artificially low results in patients with liver disease. 11/04/2024 7:13 AM EDT 11/04/2024 7:13 AM EDT us Generic External Data Provider LAB BLOOD ORDERAB LES Final Result [facility] [address] [place] [address] [phone] * Testosterone, Total, males (Adult), IA (09/01/2024 6:43 AM EDT) Testosterone, Total 617 250 - 1100 ng/dL [facility] Comment:For additional infor mation, please refer tohttp://education.[employer]/faq/GrsrmIrwttuxuukcsEUGPCPBCL359(This link is being provided for informational/educational purposes only.)This test was developed and its analytical performancecharacteristics have been determined by [employer] [place], [place]. It hasnot been cleared or approved by the U.S. Food and DrugAdministration. This assay has been validated pursuantto the CLIA regulations and is used for clinicalpurposes.THIS TEST WAS PERFORMED AT:[facility] [place] [address]ZTAOVEQLAURY ELLIS MD,PHD 09/01/2024 6:43 AM EDT 09/01/2024 6:43 AM EDT Generic External Data Provider LAB BLOOD ORDERAB LES Final Result Performing Organization Address [facility]/ZIP Co de Phone Number [facility] [address] [place] [phone] * (ABNORMAL) LH (09/01/2024 6:43 AM EDT) Lutenizing Hormone 13.8(A) 1.5 - 9.3 mIU/mL [facility] Comment:THIS TEST WAS PERFOR MED AT:[employer] [address] [address]ZBYCQLISA FISHMAN MD 09/01/2024 6:43 AM EDT 09/01/2024 6:43 AM EDT us Generic External Data Provider LAB BLOOD ORDERAB LES Final Result Performing Organization Address [facility] Co de Phone Number [facility] [address] [place] [phone] * Hepatic Function Panel (09/01/2024 6:43 AM EDT) Bilirubin, Total 0.4 0.0 - 1.0 mg/dL [facility] Bilirubin, Direct 0.1 0.0 - 0.5 mg/dL [facility] Aspartate Amino Transferase 29 5 - 37 U/L [facility] Alanine Aminotransferase 29 0 - 40 U/L [facility] Total Protein 6.7 6.5 - 8.0 g/dL [facility] Albumin Level 3.7 3.5 - 5.0 g/dL [facility] Alkaline Phosphatase 61 39 - 117 U/L [facility] Blood Venous blood specimen / Unknown 09/01/2024 6:43 AM EDT 09/01/2024 6:43 AM EDT us Adriane Schultz MD LAB BLOOD ORDERABLES Final Resul t [facility] [address] [place] [phone] * (ABNORMAL) Basic Metabolic Panel (09/01/2024 6:43 AM EDT) Sodium 139 135 - 145 mmol/L [facility] Potassium 4.5 3.3 - 5.1 mmol/L [facility] Chloride 106 96 - 108 mmol/L [facility] Carbon Dioxide 25 22 - 29 mmol/L [facility] Anion Gap 13 12 - 20 [facility] Urea Nitrogen (BUN) 25(H) 9 - 16 mg/dL [facility] Creatinine, Serum 1.42(H) 0.5 - 1.4 mg/dL [facility] Estimated Glomerular Filt Rate 54 [facility] Comment:Chronic Kidney Disea se: Estimated GFR < 60 mL/min/1.80i9Ehoiaj Kidney Disease: Estimated GFR < 15 mL/min/1.73m2 Glucose 138(H) 60 - 115 mg/dL [facility] Calcium 9.0 8.4 - 10.2 mg/dL [facility] Blood Venous blood specimen / Unknown 09/01/2024 6:43 AM EDT 09/01/2024 6:43 AM EDT us Adriane Schultz MD LAB BLOOD ORDERABLES Final Resul t [facility] [address] [place] [phone] * (ABNORMAL) POCT A1C (08/17/2024 9:17 AM EDT) Hemoglobin A1C 6.3(A) 4.0 - 6.0 % QC Media Lot # Comment:[id number] Lot# Expiration Date Comment:03/25/2026 Blood 08/17/2024 9:17 AM EDT us Martha Joyner MD POINT OF CARE TEST ENTER/EDIT ORDERABLES Final Result * POCT glucose manually resulted (08/17/2024 9:16 AM EDT) Glucose Blood, POC 128 60 - 200 mg/dL [employer] Lot # Comment:[id number] Lot# Expiration Date Comment:11/15/2024 Blood Capillary blood specimen / Unknown 08/17/2024 9:16 AM EDT Martha Joyner MD POINT OF CARE TEST ENTER/EDIT ORDERABLES Final Result * (ABNORMAL) Albumin, Random Urine W/Creatinine (04/15/2024 8:26 AM EST) Creatinine, Urine 142.30 mg/dL [facility] Microalbumin Urine >2,000.0 mg/L [facility] Microalbum Creatinine Ratio Ur 1,405.4(H ) <30 ug/mg cr [facility] Comment:Albumin/Creatinine R at Reference Ranges: Normal: < 30 ug/mg creatinine Microalbuminuria: 30 - 300 ug/mg creatinineClinical Albuminuria: > 300 ug/mg creatinine 04/15/2024 8:26 AM EST 04/15/2024 9:32 AM EST us Generic External Data Provider LAB URINE ORDERAB LES Final Result Performing Organization Address [facility]/ZIP Co de Phone Number [facility] [address] [place] [phone] * Hepatitis C Ab (11/09/2022 9:00 AM EDT) Hepatitis C Antibody Nonreactive Nonreactive [facility] Comment:Antibodies to HCV no t detected; does not exclude early acuteHCV infection. Blood 11/09/2022 9:00 AM EDT 11/09/2022 2:35 PM EDT Result [facility] Martha Joyner MD LAB BLOOD ORDERABLES Final Re sult Performing Organization Address City/[facility]/ZIP Co de Phone Number [facility] [address] [place] [phone] * HIV 1/2 ANTIGEN/ANTIBODY,FOURTH GENERATION W/RFL (05/26/2021 9:29 AM EDT) HIV-1/2 ANTIGEN AND ANTIBODIES, 4TH GENERATION W/ REFLEX NON-[facility]ACT [facility] Comment: HIV-1 antigen and HIV-1/HIV-2 [...] purpose. For additional information please refer to http://education.Monogram.iCarsClub/faq/ZLJ894 (This link is being provided for informational/ educational purposes only.) The performance of this assay has not been clinically validated in patients less than 2 years old. 05/26/2021 9:29 AM EDT Martha Joyner MD LAB BLOOD ORDERABLES Final Re sult [facility] [address] from Last 3 Months or Most Recently Relevant to Health Maintenance Insurance [facility] - [facility] PARTIAL (MEDICAID) Care Teams Meat Specialist Relationship Specialty Start Date End Date Martha Joyner MD [address] [place] [phone] PCP - General Family Medicine 02/22/21 [facility] Nurse Practitioner Endocrinology 01/08/24
[2024-11-09 07:59] VITALS: BP 136/62; PULSE 100; O2SAT 94; BMI 42.6
--- NOTE | 2024-11-09 07:59 | A.OFFVIS_ITS ---
Vital Signs 11/09/24 07:59 Height 5 ft 11 in Weight 305 lb 5.443 oz BMI 42.6 BP 136/62 Blood Pressure Location Lt brachial Position Sitting Pulse 100 Pulse Source Pulse Oximeter Pulse Oximetry (%) 94 Oxygen Delivery Method Room Air Intake Visit Reasons: T2DM Intake Note: Patient present today for Type 2 Diabetes Mellitus Last Diabetic eye exam: Patient had it done last year and has upcoming appt 12/26 Last Podiatry Visit: Doesn't have one Random Glucose: 130 mg/dl HgA1C: 6.9% 11/04/24 Channel Cementer Required: No Accompanied by: Self / Same As Patient Allergies No Known Allergies Allergy (Verified 11/09/24 08:03) Medication List - Last Reconciled 11/09/24 by Park Perkins PA-C allopurinol 300 mg PO BEDTIME ashwagandha extract 300 mg PO blood-glucose meter (FreeStyle [place] Lite kit) As directed blood-glucose sensor (FreeStyle Jeannette 3 Plus Sensor device) Use daily As directed to monitor glucose carvedilol 6.25 mg PO BID clomiphene citrate 50 mg PO 3XW 90 days dapagliflozin propanediol (Farxiga) 10 mg PO DAILY lancets (TRUEplus Lancets) As directed metformin ER (Glucophage XR) 500 mg PO DAILY tirzepatide (Mounjaro) 12.5 mg (0.5 mL) subcut QWEEK valsartan 320 mg PO DAILY HPI HPI T2DM: Details: Patient is a 44-year-old male who has a significant past medical history of type 2 diabetes, hypertension, low libido, gout who presents today for a diabetic follow-up. Endo: DM: He was dx with t2dm around 2013. He states that he did have diabetic Education and understands that he should be doing with his diet. His A1c is 6.9. He is currently on farxiga 10 mg and Mounjaro 12.5 mg weekly. He has noted blood sugars being high and low. He states sometimes in the evening he will feel shaky and cold and the blood sugar will be around 50. He has had to eat or drink something. 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 He is worried because he thinks he can control this with diet and sensor as that has helped him in the past and he does not want to feel the rare low blood sugars. He is noticing that blood sugars are going up to around 250 with eating. He states almost everyone on his father's side has t2dm with kidney problems. He has lost 25 lbs so far with the increased dosage of mounjaro. Cannot tolerate the higher dose of mounjaro. Nephro: Sees Dr. Coleman. He has a follow up in a couple weeks with him. CV: Blood pressure today in the office is 136/62. Patient is currently on valsartan 320 mg, amlodipine 10 mg and Bystolic 10 mg daily. Cholesterol is diet controlled. [facility] Medical History Chronic kidney disease Back pain Numbness and tingling in both hands History of palpitations Morbid obesity HTN (hypertension) Type 2 diabetes mellitus Surgical History No pertinent past surgical history Family History Mother High blood pressure Father Diabetes Kidney problem High blood pressure Maternal Aunt Cancer Maternal Aunt Cancer Social History Are you a primary specialist wound care to a significant other at home: No Do you presently have visiting nurse or other home services: No Alcohol intake: never Patient Tobacco Use Status: Never used Tobacco Physical Exam Vital Signs: Last Vital Signs Pulse 100 11/09/24 07:59 BP 136/62 11/09/24 07:59 Pulse Ox 94 11/09/24 07:59 Oxygen Delivery Method Room Air 11/09/24 07:59 BMI result Body Mass Index 42.6 Const Orientation/consciousness: patient oriented x3 Neck Neck: Yes no lymphadenopathy Thyroid: Thyroid normal Carotids: no bruits Resp Auscultation: clear to auscultation bilaterally Cardio Rate: regular rate Rhythm: regular rhythm Heart sounds: S1 normal heart sound present and S2 normal heart sound present Peripheral pulses: dorsalis pedis present Neuro General: patient oriented x3, gait normal and no focal motor deficits Extrem Other: Monofilament sensation intact bilaterally. Vibratory sensation intact bilaterally. Skin intact. General: Yes normal to inspection Results Reviewed Results Reviewed: Laboratory Tests 11/04/24 07:13 Creatinine 1.64 H Estimated GFR 46 Fasting Glucose 142 H Hemoglobin A1c % 6.9 H Laboratory Tests 11/04/24 07:13 Triglycerides 190 H Cholesterol 150 LDL Cholesterol, Calc 80 HDL Cholesterol 32 L Assessment & Plan Assessment & Plan (1) Microalbuminuria due to type 2 diabetes mellitus: Code(s): E11.29 - Type 2 diabetes mellitus with other diabetic kidney complication; R80.9 - Proteinuria, unspecified Category: Medical Plan: start metformin continue mounjaro and farixga sensor given today. will try to get sensor approved (2) HTN (hypertension): Code(s): I10 - Essential (primary) hypertension Category: Medical Qualifiers: Hypertension type: primary hypertension Qualified Code(s): I10 - Essential (primary) hypertension Plan: wnl continue current treatment plan (3) CKD (chronic kidney disease) stage 3, GFR 30-59 ml/min: Code(s): N18.30 - Chronic kidney disease, stage 3 unspecified Category: Medical Plan: stable (4) Hypoglycemia associated with type 2 diabetes mellitus: Code(s): E11.649 - Type 2 diabetes mellitus with hypoglycemia without coma Category: Medical Plan: as above Orders: Orders Basic Metabolic Panel Today E11.29 - Type 2 diabetes mellitus with other diabetic kidney complication, I10 - Essential (primary) hypertension, N18.30 - Chronic kidney disease, stage 3 unspecified, R80.9 - Proteinuria, unspecified Microalbumin, Random (w Creat) Today E11.29 - Type 2 diabetes mellitus with other diabetic kidney complication, I10 - Essential (primary) hypertension, N18. 30 - Chronic kidney disease, stage 3 unspecified, R80.9 - Proteinuria, unspecified Medications: New metformin ER (Glucophage XR) 500 mg PO DAILY 90 tabs 0RF Refilled blood-glucose sensor (FreeStyle Jeannette 3 Plus Sensor device) Use daily As directe d to monitor glucose 2 ea 5RF E08.29 - Diabetes mellitus due to underlying condition with other diabetic kidney complication, E11.649 - Type 2 diabetes mellitus with hypoglycemia without coma, R80.9 - Proteinuria, unspecified, Z79.4 - senior living (current) use of insulin Coding Level of Care Code Est Pt Level 4 (19967) Complex EM visit Add On G2211 Diagnoses Microalbuminuria due to type 2 diabetes mellitus E11.29; R80.9 Primary hypertension I10 Hypertension type: primary hypertension CKD (chronic kidney disease) stage 3, GFR 30-59 ml/min N18.30 Hypoglycemia associated with type 2 diabetes mellitus E11.649
[2024-11-09 08:10] LABS: Glucose, Whole Blood 130 mg/dL (60-115)
== END 2024-11-09 08:42 | disposition home or self-care (01) ==
LOC: HO.ENCR 07:54
PROVIDERS: PCP Family Medicine; Visit Provider Physician Assistant
DX: E11.29 Type 2 diabetes mellitus with other diabetic kidney complication (principal); R80.9 Proteinuria, unspecified; I10 Essential (primary) hypertension; N18.30 Chronic kidney disease, stage 3 unspecified; E11.649 Type 2 diabetes mellitus with hypoglycemia without coma

== ENCOUNTER → 2024-11-09 07:53 | Outpatient (BNVA) | payer OTHER, SELFPAY | PROVIDERS: PCP Family Medicine; Visit Provider Physician Assistant | DX: E11.22 Type 2 diabetes mellitus with diabetic chronic kidney disease (principal); E11.29 Type 2 diabetes mellitus with other diabetic kidney complication; E11.649 Type 2 diabetes mellitus with hypoglycemia without coma; I12.9 Hypertensive chronic kidney disease with stage 1 through stage 4 chronic kidney disease, or unspecified chronic kidney disease; N18.30 Chronic kidney disease, stage 3 unspecified; R80.9 Proteinuria, unspecified | CPT/HCPCS: 82947; 99212 ==

== ENCOUNTER 2024-12-08 12:26 | Outpatient (AMB) | payer OTHER, SELFPAY ==
--- NOTE | 2024-12-08 12:32 | MHC.OFFVIS ---
Vital Signs 12/08/24 12:33 Height 5 ft 11 in Weight 307 lb BMI 42.8 BP 114/65 Blood Pressure Location Lt brachial Position Sitting Pulse 92 Pulse Oximetry (%) 98 Oxygen Delivery Method Room Air Intake Visit Reasons: Colonoscopy screening Intake Note: Patient new consult for 1st pre Colonoscopy screening. Patient denies any GI issues for today visit. Bread Oven Operator Required: No Accompanied by: Self / Same As Patient Allergies No Known Allergies Allergy (Verified 11/09/24 08:03) Medication List - Last Reconciled 12/08/24 by Sheree Estarda CNP allopurinol 300 mg PO BEDTIME ashwagandha extract 300 mg PO PRN blood-glucose meter (FreeStyle [place] Lite kit) As directed blood-glucose sensor (FreeStyle Jeannette 3 Plus Sensor device) Use daily As directed to monitor glucose carvedilol 6.25 mg PO BID clomiphene citrate 50 mg PO 3XW 90 days dapagliflozin propanediol (Farxiga) 10 mg PO DAILY lancets (TRUEplus Lancets) As directed metformin ER (Glucophage XR) 500 mg PO DAILY tirzepatide (Mounjaro) 12.5 mg (0.5 mL) subcut QWEEK valsartan 320 mg PO DAILY HPI HPI Colonoscopy screening: Details: Patient is a 44-year-old male with PMH of diabetes, hypertension, CKDIII. Edd presents for a pre-procedural assessment prior to his initial screening colonoscopy. He reports passing bowel movements twice daily, with no issues of constipation, diarrhea, or observed blood in stools. He denies abdominal pain outside of mild transient discomfort and nausea associated with Mounjaro injections, symptoms typically limited to the first one to two days post-injection before resolving. There is no history of vomiting, heartburn, dysphagia, or changes in appetite outside the increased hunger attributed to an oral hormonal medication, as per his urologist His diabetes remains well-managed, with a recent Hemoglobin A1c of 6.9 per November records. Notable comorbidities under active management include diabetes and kidney disease, with close endocrinology/nephrology follow-up. Patient denies: fever/chills, regurgitation,dysphasia, unintentional wt loss or melena/hematochezia. Social hx: -denies ETOH use -denies recreational drug use -non-smoker - family hx as below -denies personal hx of CA -denies significant cardiopulmonary history -no prior anesthesia/sedation history. [facility] Medical History (Updated 12/08/24 @ 12:38 by Sheree Estrada CNP) Colon cancer screening Chronic kidney disease Back pain Numbness and tingling in both hands History of palpitations Morbid obesity HTN (hypertension) Type 2 diabetes mellitus Surgical History No pertinent past surgical history Family History (Updated 12/08/24 @ 12:49 by Sheree Estrada CNP) Mother High blood pressure Father Diabetes Kidney problem High blood pressure Maternal Aunt Cancer Maternal Aunt Cancer Social History Are you a primary resident care associate to a significant other at home: No Do you presently have visiting nurse or other home services: No Alcohol intake: never Patient Tobacco Use Status: Never used Tobacco Review of Systems Const Reports as per HPI ENT Reports as per HPI Card Reports as per HPI Resp Reports as per HPI GI Reports as per HPI Reports as per HPI Physical Exam Const General: healthy appearing, no acute distress and well developed Nutritional Appearance: average body habitus Orientation/consciousness: patient oriented x3 HEENT Head: Yes normal to inspection, Yes normocephalic and Yes atraumatic Face and sinus: Yes normal facial exam Eyes General: appearance normal, both eyes and all related structures Neck Neck: Yes normal visual inspection Resp Effort & Inspection: normal respiratory effort, able to speak in complete sentences, no tracheal deviation and symmetric chest movement GI Inspection: Yes obesity Auscultation: normal bowel sounds Neuro General: patient oriented x3 Gait exam (Neuro): Normal gait present Psych Appearance: grossly normal Mental Status: mental status grossly normal Speech and movement: Normal speech and movement present Affect: normal affect Attitude: cooperative Thought process: Normal thought process present Thought content: Normal thought content present Insight: Good insight present (Psych) Judgement: Good judgement present (Psych) Assessment & Plan Assessment & Plan (1) Colon cancer screening: Code(s): Z12.11 - Encounter for screening for malignant neoplasm of colon Category: Medical Plan: Due for index screening colonoscopy. No alarm features. Medications: -prescriptions for laxative tablets and MiraLax sent to pharmacy; instructions for Gatorade purchase and clear liquid diet given. -understands diabetes medications will need to be held days prior to procedure. Nurse to review med holds per protocol. Patient educated on scheduling process, procedure preparation, including avoiding certain foods and ensuring clear liquid intake Advised on necessity for ride post-procedure due to sedation. Plan Follow-up after colonoscopy as warranted or sooner if needed Time: I spent a total of 20 minutes on the date of encounter which includes: Preparing to see the patient (reviewed previous documentation, test results and medical history) Performing a medically appropriate exam and/or evaluation Ordering medications, tests, and procedures Documenting clinical information in the health record Orders: Referrals GI Procedure Notification Z12.11 - Encounter for screening for malignant neoplasm of colon Medications: New bisacodyl Take per colonoscopy instructions 5 mg PO ONCE 4 tabs 0RF polyethylene glycol 3350 (Miralax) per colonoscopy prep instructions 238 grams PO ONCE 238 grams 0RF Coding Level of Care Code New Pt New Pt Level 2 (29854) Patient Type New Diagnoses Colon cancer screening Z12.11
[2024-12-08 12:33] VITALS: BP 114/65; PULSE 92; O2SAT 98; BMI 42.8
--- OUTSIDE RECORDS SUMMARY | 2024-12-08 15:19 | XMS_ITS | Encounter Summary ---
Author Organization [employer] Address [address] [place] [address] Care Team Providers Care Telephone Operator Chief Name Role Phone Martha Joyner MD Primary Care Provider [phone] Reason for Visit * Reason Onset Date Comments Nurse Triage 11/20/2023 Encounter Details Date Type Department Care Team ([facility] st Contact Info) Description 11/20/2023 Telephone [facility] MEDICINE [address] [place], [place] [phone] Martha Joyner MD [address] [place] [address] Nurse Triage Social History Tobacco Use Types [...] didn't answer. Left voice message to call [facility] triage line at [phone] [phone]. * Telephone Encounter - Rangel Razo [...] [facility] [address] [place] [address] Harvinder Newberry documented as of this encounter Visit Diagnoses Not on filedocumented in this encounter Additional Health Concerns Assessment Noted Time PHQ-9 Depression Total Score: 19 024 3:19 PM EDT documented as of this encounter Care Teams Telephone Operator Chief Relationship Specialty Start Date End Date Martha Joyner MD [address] [place] [address] PCP - General Family Medicine 02/22/21 [facility] Nurse Practitioner Endocrinology 01/08/24 documented as of this encounter
--- OUTSIDE RECORDS SUMMARY | 2024-12-08 15:19 | XMS_ITS | Encounter Summary ---
Author Organization [employer] Address [address] [place] [address] Care Team Providers Care Spinning Frame Changer Name Role Phone Martha Joyner MD Primary Care Provider [phone] Reason for Visit * Reason Comments Med Refill Encounter Details Date Type Department Care Team ([facility] Contact Info) Description 01/03/2023 Refill [facility] [address] [place], [place] [phone] Tereza Wagner MD [address] [place] [address] Social History Tobacco Use Types Packs/Day Years [...] Description 01/19/2025 8:00 AM EST Office Visit [facility] [address] [place] [address] Harvinder Newberry documented as of this encounter Visit Diagnoses Not on filedocumented in this encounter Additional Health Concerns Assessment Noted Time PHQ-9 Depression Total Score: 1 02/15/20 22 4:00 PM EST documented as of this encounter Care Teams Spinning Frame Changer Relationship Specialty Start Date End Date Martha Joyner MD [address] [place] [id number] PCP - General Family Medicine 02/22/21 [facility] Nurse Practitioner Endocrinology 01/08/24 documented as of this encounter
--- OUTSIDE RECORDS SUMMARY | 2024-12-08 15:19 | XMS_ITS | Encounter Summary ---
Author Organization [employer] Address [address] [place] [address] Care Team Providers Care Laborer Beam House Name Role Phone Martha Joyner MD Primary Care Provider [phone] Reason for Visit * Reason Comments Med Refill Encounter Details Date Type Department Care Team (Late st Contact Info) Description 10/15/2022 Refill [facility] P[facility] [address] [place] [address] Martha Joyner MD [address] [place] [address] Type 2 diabetes mellitus with hyperglycemia, without long-term current use of insulin ([facility]) Social History Tobacco Use Types Packs/Day Years [...] 01/19/2025 8:00 AM EST Office Visit [facility] ADULT D[facility] [address] [place] [address] Harvinder Newberry documented as of this encounter Visit Diagnoses Diagnosis Type 2 diabetes mellitus with hyperglycemia, without long-term current use of insulin (HCC) documented in this encounter Additional Health Concerns Assessment Noted Time PHQ-9 Depression Total Score: 1 02/15/20 22 4:00 PM EST documented as of this encounter Care Teams Laborer Beam House Relationship Specialty Start Date End Date Martha Joyner MD [address] [place] [address] PCP - General Family Medicine 02/22/21 [facility] Nurse Practitioner Endocrinology 01/08/24 documented as of this encounter
--- OUTSIDE RECORDS SUMMARY | 2024-12-08 15:19 | XMS_ITS | Encounter Summary ---
Author Organization [employer] Address [address] [facility] [address] [facility] [address] [place] [address] Care Team Providers Care Spin Instructor Name Role Phone Martha Joyner MD Primary Care Provider [phone] Reason for Visit * Reason Onset Date Comments Med Refill 03/16/2024 Encounter Details Date Type Department Care Team (Late st Contact Info) Description 03/16/2024 Telephone [facility] [address] [place], [place] [phone] Martha Joyner MD [address] [place] [address] Med Refill Social History Tobacco Use Types [...] 6.25 MG tablet To be sent to: [facility] documented in this encounter Plan of Treatment Upcoming Encounters Date Type Department Care Team (Late st Contact Info) Description 01/19/2025 8:00 AM EST Office Visit [facility] ADULT DENTAL [address] [place] [address] Harvinder Newberry documented as of this encounter Visit Diagnoses Not on filedocumented in this encounter Additional Health Concerns Assessment Noted Time PHQ-9 Depression Total Score: 19 024 3:19 PM EDT documented as of this encounter Care Teams Spin Instructor Relationship Specialty Start Date End Date Martha Joyner MD [address] [place] [address] PCP - General Family Medicine 02/22/21 [facility] Nurse Practitioner Endocrinology 01/08/24 documented as of this encounter
--- OUTSIDE RECORDS SUMMARY | 2024-12-08 15:19 | XMS_ITS | Clinical Summary ---
Author Organization [employer] Address [address] [facility] [address] [place] [address] Care Team Providers Care Stores Clerk Name Role Phone Martha Joyner MD Primary Care Provider [phone] Allergies No known active allergies Medications * [...] with evening meal. 60 tablet 5 08/18/19 25 Active allopurinol (Zyloprim) 300 MG tabletIndication s:Gout, unspecified cause, unspecified chronicity, unspecified site Take 1 tablet (300 mg) by mouth at bedtime. 90 tablet 1 08/18/19 Active Continuous Glucose Spray Painting Machine Operator (FreeStyle Jeannette 3 [place]) deviceIndication s:Type 2 diabetes mellitus with hyperglycemia, without long-term current use of insulin ([facility]) 1 each Once per day. Use as directed for CGM 1 each 08/18/19 Active Continuous Glucose Sensor (FreeStyle Jeannette 3 Plus Sensor) miscIndications: Type 2 diabetes mellitus with hyperglycemia, without long-term current use of insulin (HCC) 1 each every 15 days. 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 During examination Balanitis was observed. Medication was prescribed. Acute anal fissure 06/25/2022 Assessment & Plan (06/25/2022 11:58 AM EDT): Patient with concerns of blood in stool and pain when eliminating feces and sitting. Will refer to Gastroenterology. Morbid obesity ([facility]) 04/17/2022 Assessment & Plan (01/23/2024 9:49 AM [...] nocturnal hypoglycemia management - Follow up with accident report clerk as scheduled in 2 months - Diabetic [...] Glu = 109 Patient is managed by [facility] endo. His DM2 is trending in [...] levels. Continue taking mounjaro as perscribed by accident report clerk. Will montior and lower metformin as needed. [...] elevated a1c of 10.7% and glucoe of [facility]. No measuring his glucose at [...] Encounters Date Type Department Care Team Description 11/09/2024 Orders Only GENERIC EXTERNAL DATA DEPARTMENT Provider, Generic External Data 11/04/2024 Orders Only GENERIC EXTERNAL DATA DEPARTMENT Provider, Generic External Data from Last 3 Months Immunizations Immunization Administration [...] Description 01/19/2025 8:00 AM EST Office Visit [facility] ADULT DENTAL [address] [place] [address] [employer] [facility] Health Maintenance Due Date Last Done Comments [...] 08/17/2025 08/17/2024 Depression Screening 08/17/2025 08/17/2024, 08/18/19 25 Disability Screening 08/17/2025 08/17/2024 Tobacco Screening 08/17/2025 [...] Associated Diagnosis Comments GLUCOSE, WHOLE BLOOD Routine 11/09/2024 8:06 AM EDT LIPID PANEL, STANDARD Routine 11/04/2024 7:13 AM EDT COMPREHENSIVE METABOLIC PANEL, FASTING Routine 11/04/2024 7:13 AM EDT B TYPE NATRIURETIC PEPTIDE (BNP) Routine 11/04/2024 7:13 AM EDT HEMOGLOBIN A1C Routine 11/04/2024 7:13 AM EDT Full PROPHYLAXIS - ADULT Routine [...] current use of insulin ([facility]) HIV 1/2 ANTIGEN/ANTIBODY, FOURTH GENERATION W/RFL Routine 05/26/2021 9:29 AM EDT from Last 3 Months or Most Recently Relevant to Health Maintenance Results * (ABNORMAL) Glucose, Whole Blood (11/09/2024 8:06 AM EDT) Glucose, Whole Blood 130(H) 60 - 115 mg/dL [facility] Comment:METER #: [id number] 0Testing performed in the Endocrinology Department [address] , [address], [facility]. 11/09/2024 8:06 AM EDT 11/09/2024 8:09 AM EDT us Generic External Data Provider LAB BLOOD ORDERAB LES Final Result [facility] [address] [place] [phone] * (ABNORMAL) Comprehensive Metabolic Panel, Fasting (11/04/2024 7:13 AM EDT) Sodium 140 135 - 145 mmol/L [facility] Potassium 4.7 3.3 - 5.1 mmol/L [facility] Chloride 109(H) 96 - 108 mmol/L [facility] Carbon Dioxide 24 22 - 29 mmol/L [facility] Anion Gap 12 12 - 20 [facility] Urea Nitrogen (BUN) 24(H) 9 - 16 mg/dL [facility] Creatinine, Serum 1.64(H) 0.5 - 1.4 mg/dL [facility] Estimated Glomerular Filt Rate 46 [facility] Comment:Chronic Kidney Disea se: Estimated GFR < 60 mL/min/1.76b9Grnuqd Kidney Disease: Estimated GFR < 15 mL/min/1.73m2 Glucose Fasting 142(H) 60 - 99 mg/dL [facility] Comment:A fasting glucose of 126 mg/dl or greater on more than oneoccasion is considered diagnostic of diabetes. Calcium 8.6 8.4 - 10.2 mg/dL [facility] Bilirubin, Total 0.3 0.0 - 1.0 mg/dL [facility] Aspartate Amino Transferase 35 5 - 37 U/L [facility] Alanine Aminotransferase 29 0 - 40 U/L [facility] Total Protein 6.7 6.5 - 8.0 g/dL [facility] Albumin Level 3.8 3.5 - 5.0 g/dL [facility] Alkaline Phosphatase 64 39 - 117 U/L [facility] 11/04/2024 7:13 AM EDT 11/04/2024 7:13 AM EDT Generic External Data Provider LAB BLOOD ORDERAB LES Final Result Performing Organization Address City/[facility]/ZIP Co de Phone Number [facility] [address] [place] [phone] * B Type Natriuretic Peptide (BNP) (11/04/2024 7:13 AM EDT) Pathologist [facility] B Type Natriuretic Peptide <10 <100 pg/mL [facility] 11/04/2024 7:13 AM EDT 11/04/2024 7:13 AM EDT us Flipiture External Data Provider LAB BLOOD ORDERAB LES Final Result Performing Organization Address [facility]/ZIP Co de Phone Number [facility] [address] [place] [phone] * (ABNORMAL) Hemoglobin A1c (11/04/2024 7:13 AM EDT) Hemoglobin A1c 6.9(H) <6.0 % [facility] Comment:Hemoglobin A1C Refer ence Range Adults: 4.8 - 6.0 % Non diabetic: < 6.0 % Goal: < 7.0 %Additional Action Suggested: > 8.0 %Note: Hemoglobin A1c results are invalid for patients with abnormal amounts of HbF. Blood transfusions may impact the HbA1c concentration in the patient sample. Estimated Average Glucose 151 mg/dL [facility] Comment:eAG = Estimated ave rage glucose which is %A1C expressed asaverage glucose, using the formula of the [id number] Glucose study (ADAG), Diabetes Care, Vol.31,#8,Oct. 2007 11/04/2024 7:13 AM EDT 11/04/2024 7:13 AM EDT us Generic External Data Provider LAB BLOOD ORDERAB LES Final Result [facility] [address] [place] [phone] * (ABNORMAL) Lipid Panel, Standard (11/04/2024 7:13 AM EDT) Triglycerides 190(H) <150 mg/dL [facility] Comment:Desirable Triglyceri de: less than 150 mg/dLBorderline High Triglyceride 150-199 mg/dLHigh Triglyceride: 200-499 mg/dLVery High Triglyceride: greater than or equal to 5OO mg/dL Cholesterol 150 <200 mg/dL [facility] Comment:Desirable Cholestero l: less than 200 mg/dLBorderline High Cholesterol: 200-239 mg/dLHigh Cholesterol: greater than 239 mg/dL LDL Cholesterol Calculated 80 <100 mg/dL [facility] Comment:Desirable LDL: less than 100 mg/dLNear Optimal/Above Optimal LDL: 110- 129 mg/dLBorderline High LDL: 130-159 mg/dLHigh LDL: 160-189 mg/dLVery High LDL: greater than or equal to 190 mg/dL HDL Cholesterol 32(L) >40 mg/dL [facility] Comment:Desirable HDL: great er than 40 mg/dL Note: This HDL assay may give artificially low results in patients with liver disease. 11/04/2024 7:13 AM EDT 11/04/2024 7:13 AM EDT us Generic External Data Provider LAB BLOOD ORDERAB LES Final Result Performing Organization Address [facility] de Phone Number [facility] [address] [place] [phone] * (ABNORMAL) Albumin, Random Urine W/Creatinine (04/15/2024 8:26 AM EST) Pathologist [facility] Creatinine, Urine 142.30 mg/dL [facility] Microalbumin Urine >2,000.0 mg/L H [facility] Microalbum Creatinine Ratio Ur 1,405.4(H ) <30 ug/mg cr [facility] Comment:Albumin/Creatinine R atio Reference Ranges: Normal: < 30 ug/mg creatinine Microalbuminuria: 30 - 300 ug/mg creatinineClinical Albuminuria: > 300 ug/mg creatinine 04/15/2024 8:26 AM EST 04/15/2024 9:32 AM EST us Generic External Data Provider LAB URINE ORDERAB LES Final Result Performing Organization Address [facility] Phone Number [facility] [address] [place] [phone] * Hepatitis C Ab (11/09/2022 9:00 AM EDT) [facility] Hepatitis C Antibody Nonreactive Nonreactive [facility] Comment:Antibodies to HCV no t detected; does not exclude early acuteHCV infection. Blood 11/09/2022 9:00 AM EDT 11/09/2022 2:35 PM EDT us Martha Joyner MD LAB BLOOD ORDERABLES Final Re sult Performing Organization Address [facility] [[email or web address]] Co de Phone Number [facility] [address] [place] [phone] * HIV 1/2 ANTIGEN/ANTIBODY,FOURTH GENERATION W/RFL [...] purpose. For additional information please refer to http://education.Tocagen/faq/RNZ802 (This link is being provided for informational/ educational purposes only.) The performance of this assay has not been clinically validated in patients less than 2 years old. 05/26/2021 9:29 AM EDT us Martha Joyner MD LAB BLOOD ORDERABLES Final Re sult [facility] [address] from Last 3 Months or Most Recently Relevant to Health Maintenance Insurance [facility] DENTAL - HSN PARTIAL (MEDICAID) Care Teams Stores Clerk Relationship Specialty Start Date End Date Martha Joyner MD [address] [place] [address] PCP - General Family Medicine 02/22/21 Endo [facility] Nurse Practitioner Endocrinology 01/08/24
--- OUTSIDE RECORDS SUMMARY | 2024-12-08 15:19 | XMS_ITS | Encounter Summary ---
Author Organization [employer] Address [address] [facility] [address] [place] [address] Care Team Providers Care Processor Helper Name Role Phone Martha Joyner MD Primary Care Provider [phone] Reason for Visit * Reason Comments Med Refill Encounter Details Date Type Department Care Team ([facility] st Contact Info) Description 03/11/[address] [facility] MED [facility] PEDS [address] [place], [place] [phone] Martha Joyner MD [address] [place] [address] Med Refill Social History Tobacco Use Types [...] note were not included. MD Deya Bryson [facility] Med & Peds Nurses Caller: Unspecified (Yesterday, 1:10 PM) Hi! Please could you follow up on the urology referral I placed, and if a appointment already givencould it be scheduled as soon as possible? TC placed to [facility] urology @ [phone] to see if patient has been seen [...] chart. TC placed to [facility] @ [phone] to request U/S report be faxed to [facility] @ [phone]. They faxed it. TC placed to patient to encourage him to make a sooner appointment with urology or at least keep his upcoming appointment. No answer. LM to call us back. Routing to Dr. Doran so he is aware and back to PSYCHIATRIC nurses so they can try again. Patient has f/u with PCP scheduled for 04/02/23. Notes added to appointment for that day. documented in this encounter Plan of Treatment Upcoming Encounters Date Type Department Care Team (Late st Contact Info) Description 01/19/2025 8:00 AM EST Office Visit [facility] ADULT DENTAL [address] [place] [address] Harvinder Newberry documented as of this encounter Visit Diagnoses Not on filedocumented in this encounter Additional Health Concerns Assessment Noted Time PHQ-9 Depression Total Score: 1 02/15/20 4:00 PM EST documented as of this encounter Care Teams Processor Helper Relationship Specialty Start Date End Date Martha Joyner MD [address] [place] [phone] PCP - General Family Medicine 02/22/21 [facility] Nurse Practitioner Endocrinology 01/08/24 documented as of this encounter
--- OUTSIDE RECORDS SUMMARY | 2024-12-08 15:19 | XMS_ITS | Encounter Summary ---
Author Organization [employer] Address [address] [facility] [address] [place] [address] Care Team Providers Care Retouching Operator Name Role Phone Martha Joyner MD Primary Care Provider [phone] Reason for Visit * Reason Comments Med Refill Encounter Details Date Type Department Care Team ([facility] st Contact Info) Description 07/21/[address] [facility] MED [facility] PEDS [address] [place], [place] [phone] Martha Joyner MD [address] [place] [address] Type 2 diabetes mellitus with hyperglycemia, without long-term current use of insulin ([facility]) Social History Tobacco Use Types [...] Description 01/19/2025 8:00 AM EST Office Visit [facility] ADULT DENTAL [address] [place] [address] Havrinder Newberry documented as of this encounter Visit Diagnoses Diagnosis Type 2 diabetes mellitus with hyperglycemia, without long-term current use of insulin (HCC) documented in this encounter Additional Health Concerns Assessment Noted Time PHQ-9 Depression Total Score: 17 024 5:09 PM EDT documented as of this encounter Care Teams Retouching Operator Relationship Specialty Start Date End Date Martha Joyner MD [address] [place] [address] PCP - General Family Medicine 02/22/21 [facility] Nurse Practitioner Endocrinology 01/08/24 documented as of this encounter
--- OUTSIDE RECORDS SUMMARY | 2024-12-08 15:20 | XMS_ITS | Encounter Summary ---
Author Organization [employer] Address [address] [facility] [address] [place] [address] Care Team Providers Care Paper Tube Cutter Name Role Phone Martha Joyner MD Primary Care Provider [phone] Reason for Visit * Reason Comments Med Refill Encounter Details Date Type Department Care Team ([facility] st Contact Info) Description 05/30/2023 Refill [facility] MED & PEDS [address] [place], [place] [phone] Martha Joyner MD [address] [place] [address] Primary hypertension Social History Tobacco Use Types [...] Description 01/19/2025 8:00 AM EST Office Visit [facility] ADULT DENTAL [address] [place] [address] Harvinder Newberry documented as of this encounter Visit Diagnoses Diagnosis Primary hypertension Unspecified essential hypertension documented in this encounter Additional Health Concerns Assessment Noted Time PHQ-9 Depression Total Score: 1 02/15/20 22 4:00 PM EST documented as of this encounter Care Teams Paper Tube Cutter Relationship Specialty Start Date End Date Martha Joyner MD [address] [place] [address] PCP - General Family Medicine 02/22/21 [facility] Nurse Practitioner Endocrinology 01/08/24 documented as of this encounter
--- OUTSIDE RECORDS SUMMARY | 2024-12-08 15:20 | XMS_ITS | Encounter Summary ---
Author Organization [employer] Address [address] [address] [facility] [place] [address] Care Team Providers Care Wharf Tender Helper Name Role Phone Martha Joyner MD Primary Care Provider [phone] Encounter Details Date Type Department Care Team (Late Contact Info) Description 02/15/2022 Orders Only [facility] MED [facility] PEDS [address] [place], [place] [phone] Martha Joyner MD [address] [place], [place] [phone] Type 2 diabetes mellitus with hyperglycemia, without long-term current use of insulin ([facility]) (Primary Dx) Social History Tobacco [...] 01/19/2025 8:00 AM EST Office Visit [facility] ADULT DENTAL [address] [place] [address] Harvinder Newberry documented as of this encounter Procedures Procedure Name Priority Date/Time Associated Diagnosis Comments ALBUMIN, RANDOM URINE W/CREATININE Routine 11/09/2022 9:05 AM EDT Type 2 diabetes mellitus with hyperglycemia, without long-term current use of insulin (CMS/HCC) COMPREHENSIVE METABOLIC PANEL, FASTING Routine 11/09/2022 9:00 AM EDT Type 2 diabetes mellitus with hyperglycemia, without long-term current use of insulin (CMS/[facility]) SED RATE BY MODIFIED WESTERGREN Routine 11/09/2022 9:00 AM EDT Type 2 diabetes mellitus with hyperglycemia, without long-term current use of insulin ([facility]) GLUCOSE, WHOLE BLOOD Routine 07/27/2022 2:52 PM EDT Type 2 diabetes mellitus with hyperglycemia, without long-term current use of insulin (CMS/[facility]) ALBUMIN, RANDOM URINE W/CREATININE Routine 05/18/2022 11:59 AM EDT Type 2 diabetes mellitus with hyperglycemia, without long-term current use of insulin (CMS/[facility]) LIPID PANEL, STANDARD Routine 05/18/2022 11:47 AM EDT Type 2 diabetes mellitus with hyperglycemia, without long-term current use of insulin (CMS/[facility]) GLUCOSE, WHOLE BLOOD Routine 05/18/2022 10:23 AM EDT Type 2 diabetes mellitus with hyperglycemia, without long-term current use of insulin (CMS/HCC) documented in this encounter Results * (ABNORMAL) Albumin, Random Urine W/Creatinine (11/09/2022 9:05 AM EDT) Creatinine, Urine 97.12 mg/dL [facility] Microalbumin Urine 900.0 mg/L H [facility] Microalbum Creatinine Ratio Ur 926.6(H) <30 ug/mg cr [facility] Comment:Albumin/Creatinine R atio Reference Ranges: Normal: < 30 ug/mg creatinine Microalbuminuria: 30 - 300 ug/mg creatinineClinical Albuminuria: > 300 ug/mg creatinine 11/09/2022 9:05 AM EDT 11/09/2022 2:30 PM EDT Martha Joyner MD LAB URINE ORDERABLES Final Re sult Performing Organization Address [facility] de Phone Number [facility] [address] [place] [phone] * (ABNORMAL) Sed Rate by Modified Westergren (11/09/2022 9:00 AM EDT) Erythrocyte Sedimentation Rate 34(H) 0 - 15 MM/HR [facility] Comment:Patients with polycy themia and many hemoglobin abnormalitiesmay have depressed sed rates whereas patients with anemiamay have elevated sed rates. 11/09/2022 9:00 AM EDT 11/09/2022 2:45 PM EDT Martha Joyner MD LAB BLOOD ORDERABLES Final Re sult Performing Organization Address [facility] de Phone Number [facility] [address] [place] [phone] * (ABNORMAL) Comprehensive Metabolic Panel, Fasting (11/09/2022 9:00 AM EDT) Sodium 139 135 - 145 mmol/L [facility] Potassium 4.5 3.3 - 5.1 mmol/L [facility] Chloride 106 96 - 108 mmol/L [facility] Carbon Dioxide 25 22 - 29 mmol/L [facility] Anion Gap 13 12 - 20 [facility] Urea Nitrogen (BUN) 26(H) 9 - 16 mg/dL [facility] Creatinine, Serum 1.35 0.5 - 1.4 mg/dL [facility] Estimated Glomerular Filt Rate 58 [facility] Comment:NOTE: For -Am erican individuals, multiply the result by 1.210.Chronic Kidney Disease: Estimated GFR < 60 mL/min/1.06u6Vifwkk Kidney Disease: Estimated GFR < 15 mL/min/1.73m2 Glucose Fasting 109(H) 60 - 99 mg/dL [facility] Comment:A fasting glucose fr om 100-125 mg/dl is considered impaired(pre-diabetes). Calcium 10.1 8.4 - 10.2 mg/dL [facility] Bilirubin, Total 0.4 0.0 - 1.0 mg/dL [facility] Aspartate Amino Transferase 30 5 - 37 U/L [facility] Alanine Aminotransferase 27 0 - 40 U/L [facility] Total Protein 7.5 6.5 - 8.0 g/dL [facility] Albumin Level 3.9 3.5 - 5.0 g/dL [facility] Alkaline Phosphatase 78 39 - 117 U/L [facility] 11/09/2022 9:00 AM EDT 11/09/2022 2:45 PM EDT Martha Joyner MD LAB BLOOD ORDERABLES Final Re sult Performing Organization Address [facility]/ZIP Co de Phone Number [facility] [address] [place] [phone] * (ABNORMAL) Glucose, Whole Blood (07/27/2022 2:52 PM EDT) Glucose, Whole Blood 183(H) 60 - 115 mg/dL [facility] Comment:METER #: [id number] 5Testing performed in the Endocrinology Department [address] , [address], [facility]. 07/27/2022 2:52 PM EDT 07/27/2022 2:56 PM EDT [facility] External Provider LAB BLO OD ORDERABLES Final Result Performing Organization Address [facility]/ZIP Co de Phone Number [facility] [address] [place] [phone] * Albumin, Random Urine W/Creatinine (05/18/2022 11:59 AM EDT) Creatinine, Urine 72.74 mg/dL [facility] Microalbumin Urine 747.0 mg/L [facility] Microalbum Creatinine Ratio Ur 1,026.9 ug/mg cr [facility] Comment:Albumin/Creatinine R atio Reference Ranges: Normal: < 30 ug/mg creatinine Microalbuminuria: 30 - 300 ug/mg creatinineClinical Albuminuria: > 300 ug/mg creatinine 05/18/2022 11:5 9 AM EDT 05/18/2022 1:23 PM EDT us [facility] External Provider LAB URI NE ORDERABLES Final Result [facility] [address] [place] [phone] * Lipid Panel, Standard (05/18/2022 11:47 AM EDT) Triglycerides 243 mg/dL [facility] Comment:Desirable Triglyceri de: less than 150 mg/dLBorderline High Triglyceride 150-199 mg/dLHigh Triglyceride: 200-499 mg/dLVery High Triglyceride: greater than or equal to 5OO mg/dL Cholesterol 152 mg/dL [facility] Comment:Desirable Cholestero l: less than 200 mg/dLBorderline High Cholesterol: 200-239 mg/dLHigh Cholesterol: greater than 239 mg/dL LDL Cholesterol Calculated 70 mg/dl [facility] Comment:Desirable LDL: less than 100 mg/dLNear Optimal/Above Optimal LDL: 110- 129 mg/dLBorderline High LDL: 130-159 mg/dLHigh LDL: 160-189 mg/dLVery High LDL: greater than or equal to 190 mg/dL HDL Cholesterol 34 mg/dL [facility] Comment:Desirable HDL: great er than 40 mg/dL Note: This HDL assay may give artificially low results in patients with liver disease. 05/18/2022 11:4 7 AM EDT 05/18/2022 1:23 PM EDT [facility] External Provider LAB BLO OD ORDERABLES Final Result Performing Organization Address [facility] de Phone Number [facility] [address] [place] [phone] * (ABNORMAL) Glucose, Whole Blood (05/18/2022 10:23 AM EDT) Glucose, Whole Blood 172(H) 60 - 115 mg/dL [facility] Comment:METER #: [id number] 5Testing performed in the Endocrinology Department [address] , [address], [facility]. 05/18/2022 10:2 3 AM EDT 05/18/2022 10:28 AM EDT [facility] External Provider LAB BLO OD ORDERABLES Final Result Performing Organization Address [facility] de Phone Number [facility] [address] [place] [phone] documented in this encounter Visit Diagnoses Diagnosis Type 2 diabetes mellitus with hyperglycemia, without long-term current use of insulin (HCC)- Primary documented in this encounter Additional Health Concerns Assessment Noted Time PHQ-9 Depression Total Score: 1 02/15/20 22 4:00 PM EST documented as of this encounter Care Teams Wharf Tender Helper Relationship Specialty Start Date End Date Martha Joyner MD [address] [place] [phone] PCP - General Family Medicine 02/22/21 Endo [facility] Nurse Practitioner Endocrinology 01/08/24 documented as of this encounter
--- OUTSIDE RECORDS SUMMARY | 2024-12-08 15:20 | XMS_ITS | Encounter Summary ---
Author Organization [employer] Address [address] [place] [address] Care Team Providers Care Crew Attendant Name Role Phone Martha Joyner MD Primary Care Provider [phone] Encounter Details Date Type Department Care Team ([facility] st Contact Info) Description 05/01/2023 Telephone [facility]ED[facility] [address] [place], [place] [phone] Martha Joyner MD [address] [place], [place] [phone] Social History Tobacco Use Types Packs/Day Years [...] [facility] AD[facility] [address] [place] [address] Harvinder Newberry documented as of this encounter Visit Diagnoses Not on filedocumented in this encounter Additional Health Concerns Assessment Noted Time PHQ-9 Depression Total Score: 1 02/15/20 22 4:00 PM EST documented as of this encounter Care Teams Crew Attendant Relationship Specialty Start Date End Date Martha Joyner MD [address] [place] [phone] PCP - General Family Medicine 02/22/21 [facility] Nurse Practitioner Endocrinology 01/08/24 documented as of this encounter
== END 2024-12-08 13:05 | disposition home or self-care (01) ==
LOC: HO.HGI 12:26
PROVIDERS: PCP Family Medicine; Visit Provider Nurse Practitioner Family
DX: Z01.818 Encounter for other preprocedural examination (principal); Z12.11 Encounter for screening for malignant neoplasm of colon
CPT/HCPCS: 99202

== ENCOUNTER → 2024-12-08 12:26 | Outpatient (BNVA) | payer OTHER, SELFPAY | PROVIDERS: PCP Family Medicine; Visit Provider Nurse Practitioner Family | DX: Z01.818 Encounter for other preprocedural examination (principal); E11.9 Type 2 diabetes mellitus without complications; I10 Essential (primary) hypertension; N18.30 Chronic kidney disease, stage 3 unspecified | CPT/HCPCS: 99202 ==

== ENCOUNTER 2025-02-12 08:00 | Outpatient (AMB) | payer OTHER, SELFPAY ==
--- NOTE | 2025-02-12 08:07 | MHC.OFFVIS ---
Vital Signs 02/12/25 08:08 Height 5 ft 11 in Weight 308 lb 6.827 oz BMI 43.0 BP 132/64 Blood Pressure Location Lt brachial Position Sitting Pulse 105 H Pulse Source Pulse Oximeter Pulse Oximetry (%) 94 Oxygen Delivery Method Room Air Intake Visit Reasons: T2DM Intake Note: Patient present today for Type 2 Diabetes Mellitus Last Diabetic eye exam: Last exam was about months ago Last Podiatry Visit: Doesn't have one Random Glucose: 147 mg/dl HgA1C: 6.8% Paedodontist Required: No Accompanied by: Self / Same As Patient Allergies No Known Allergies Allergy (Verified 02/12/25 08:14) Medication List - Last Reconciled 02/12/25 by Park Perkins PA-C allopurinol 300 mg PO BEDTIME blood-glucose meter (FreeStyle [place] Lite kit) As directed blood-glucose sensor (FreeStyle Jeannette 3 Plus Sensor device) Use daily As directed to monitor glucose carvedilol 6.25 mg PO BID clomiphene citrate 50 mg PO 3XW 90 days dapagliflozin propanediol (Farxiga) 10 mg PO DAILY lancets (TRUEplus Lancets) As directed metformin ER (Glucophage XR) 500 mg PO BID 90 days polyethylene glycol 3350 (Miralax) 238 grams PO ONCE tirzepatide (Mounjaro) 12.5 mg (0.5 mL) subcut QWEEK valsartan 320 mg PO DAILY HPI HPI T2DM: Details: Patient is a 44-year-old male who has a significant past medical history of type 2 diabetes, hypertension, low libido, gout who presents today for a diabetic follow-up. Endo: DM: He was dx with t2dm around 2013. He states that he did have diabetic Education and understands that he should be doing with his diet. His A1c is 6.8. He is currently on farxiga 10 mg, metformin 500 mg daily and Mounjaro 12.5 mg weekly. -No side effects from the medications. cgm- avg glucose 144. GMI 6.8%. Very hypergylcemic 0%, hyperglycemic 7%, in range 93%, hypoglycemic 0%. He states almost everyone on his father's side has t2dm with kidney problems. He has lost 25 lbs so far with the increased dosage of mounjaro. Cannot tolerate the higher dose of mounjaro. Nephro: Sees Dr. Coleman. He has a follow up in a couple weeks with him. CV: Blood pressure today in the office is 132/64. Patient is currently on valsartan 320 mg, carvedilol 6.25 mg 2x daily. Cholesterol is diet controlled. COUNT INCLUDES THE [facility] Medical History (Updated 12/08/24 @ 12:38 by Sheree Estrada CNP) Colon cancer screening Chronic kidney disease Back pain Numbness and tingling in both hands History of palpitations Morbid obesity HTN (hypertension) Type 2 diabetes mellitus Surgical History No pertinent past surgical history Family History (Updated 12/08/24 @ 12:49 by Sheree Estrada CNP) Mother High blood pressure Father Diabetes Kidney problem High blood pressure Maternal Aunt Cancer Maternal Aunt Cancer Social History Are you a primary client care representative to a significant other at home: No Do you presently have visiting nurse or other home services: No Alcohol intake: never Patient Tobacco Use Status: Never used Tobacco Physical Exam Vital Signs: Last Vital Signs Pulse 105 H 02/12/25 08:08 BP 132/64 02/12/25 08:08 Pulse Ox 94 02/12/25 08:08 Oxygen Delivery Method Room Air 02/12/25 08:08 BMI result Body Mass Index 43.0 Const Orientation/consciousness: patient oriented x3 Neck Neck: Yes no lymphadenopathy Thyroid: Thyroid normal Carotids: no bruits Resp Auscultation: clear to auscultation bilaterally Cardio Rate: regular rate Rhythm: regular rhythm Heart sounds: S1 normal heart sound present and S2 normal heart sound present Peripheral pulses: dorsalis pedis present Neuro General: patient oriented x3, gait normal and no focal motor deficits Extrem Other: Monofilament sensation intact bilaterally. Vibratory sensation intact bilaterally. Skin intact. General: Yes normal to inspection Results AMB Hemoglobin A1c AMB Hemoglobin A1c 6.8 % Last Edit by WILLIAM Delvalle on 02/12/25 08:35 Results Reviewed Results Reviewed: Laboratory Tests 11/04/24 11/09/24 07:13 08:06 Creatinine 1.64 H Estimated GFR 46 Glucose (Clinic) 130 H Hemoglobin A1c % 6.9 H AST 35 ALT 29 Triglycerides 190 H Cholesterol 150 LDL Cholesterol, Calc 80 HDL Cholesterol 32 L Assessment & Plan Assessment & Plan (1) Microalbuminuria due to type 2 diabetes mellitus: Code(s): E11.29 - Type 2 diabetes mellitus with other diabetic kidney complication; R80.9 - Proteinuria, unspecified Category: Medical Plan: increase metformin to BID dosing continue mounjaro and farixga sensor given today. will try to get sensor approved (2) HTN (hypertension): Code(s): I10 - Essential (primary) hypertension Category: Medical Qualifiers: Hypertension type: primary hypertension Qualified Code(s): I10 - Essential (primary) hypertension Plan: wnl continue current treatment plan (3) CKD (chronic kidney disease) stage 3, GFR 30-59 ml/min: Code(s): N18.30 - Chronic kidney disease, stage 3 unspecified Category: Medical Plan: stable Orders: Orders AMB Hemoglobin A1c Today E11.29 - Type 2 diabetes mellitus with other diabetic kidney complication, R80.9 - Proteinuria, unspecified, Z13.9 - Encounter for screening, unspecified Medications: Changed From metformin ER (Glucophage XR) 500 mg PO DAILY 90 tabs 0RF To metformin ER (Glucophage XR) 500 mg PO BID 180 tabs 3RF 90 days Coding Level of Care Code Est Pt Level 4 (08976) Add On Problem Visit Only Diagnoses Microalbuminuria due to type 2 diabetes mellitus E11.29; R80.9 Primary hypertension I10 Hypertension type: primary hypertension CKD (chronic kidney disease) stage 3, GFR 30-59 ml/min N18.30
[2025-02-12 08:08] VITALS: BP 132/64; PULSE 105; O2SAT 94; BMI 43.0
[2025-02-12 08:22] LABS: Glucose, Whole Blood 147 mg/dL (60-115)
== END 2025-02-12 08:47 | disposition home or self-care (01) ==
LOC: HO.ENCR 08:01
PROVIDERS: PCP Family Medicine; Visit Provider Physician Assistant
DX: E11.29 Type 2 diabetes mellitus with other diabetic kidney complication (principal); R80.9 Proteinuria, unspecified; I10 Essential (primary) hypertension; N18.30 Chronic kidney disease, stage 3 unspecified; Z13.9 Encounter for screening, unspecified

== ENCOUNTER → 2025-02-12 08:00 | Outpatient (BNVA) | payer OTHER, SELFPAY | PROVIDERS: PCP Family Medicine; Visit Provider Physician Assistant | DX: E11.29 Type 2 diabetes mellitus with other diabetic kidney complication (principal); E11.22 Type 2 diabetes mellitus with diabetic chronic kidney disease; I12.9 Hypertensive chronic kidney disease with stage 1 through stage 4 chronic kidney disease, or unspecified chronic kidney disease; N18.30 Chronic kidney disease, stage 3 unspecified; R80.9 Proteinuria, unspecified | CPT/HCPCS: 82947; 83036; 99212 ==